=== PATIENT | female | born 1960 | race Caucasian/White ===

== ENCOUNTER → 2016-07-03 | Outpatient (CLI) | payer OTHER ==
[~2016-07-03] MED LIST: ACET325T96 PO; ASPI81TA28 PO; ATOR-26 PO; BENZ-89 PO; BISM262S7 PO; CLOZ100T18 PO; DOCU-94 PO; LAMO200T38 PO; LEVO125T72 PO; LORA-741 PO; MECL1TAB42 PO; MULTTAB58 PO; PRLSR20 PO; QUET1TAB90 PO; SRQ/200 PO; VNTHFA/IN INH
[2016-07-03 17:43] LABS: URINE APPEARANCE CLEAR (CLEAR); URINE BILIRUBIN NEG (NEG); URINE COLOR YELLOW; URINE NITRITE NEG (NEG); URINE SPECIFIC GRAVITY 1.008 (1.000-1.030); UROBILINOGEN NEG (NEG)
[2016-07-03 17:50] LABS: MANUAL MICROSCOPIC REQUIRED? NO; REVIEW REQ? NO
== END | disposition home or self-care (01) ==
LOC: C.LABBFT 14:52
PROVIDERS: ATTEND Internal Medicine
DX: R39.9 Unspecified symptoms and signs involving the genitourinary system (principal)

== ENCOUNTER → 2016-08-22 | Outpatient (CLI) | payer OTHER ==
[2016-08-22 17:50] LABS: CHOLESTEROL/HDL RATIO 3.1; THYROID STIMULATING HORMONE 0.975 uIu/ml (0.300-4.500)
[2016-08-23 06:32] LABS: ESTIMATED AVERAGE GLUCOSE 140 mg/dl; HA1C FLAG Normal (Normal)
--- NOTE | 2016-09-18 10:36 | CODING QUERY MEDICAL NECESSITY ---
CQSUPPORTING DIAGNOSIS NEEDED A supporting diagnosis is required for the test/procedure performed on this patient in order for us to be reimbursed by the patient's insurance. Please provide a supporting diagnosis for the following test/procedure listed below next to the test name along with your signature. *If there is no additional diagnosis for this patient that would support the following test/procedure please document that below next to the test/procedure. Test(s)/Procedure(s) that require a supporting diagnosis: DOS 08/22/16 GLYCATED HEMOGLOBIN ORDERED BY [facility] SALEH Provider Signature: Date: Thank you Kayla Arguello Health Information Management Once completed, please kindly fax back to [phone] For questions please call [phone]
== END | disposition home or self-care (01) ==
LOC: C.LABBFT 11:14
PROVIDERS: ATTEND Physician Assistant Medical
DX: H53.8 Other visual disturbances (principal); M54.9 Dorsalgia, unspecified; E03.9 Hypothyroidism, unspecified

== ENCOUNTER → 2016-10-04 | Outpatient (CLI) | payer OTHER ==
[~2016-10-04] MED LIST changes: -BENZ-89 PO; +CGN1 PO
[2016-10-12 13:55] LABS: O&P SOURCE OTHER-STOOL
== END | disposition home or self-care (01) ==
LOC: C.LABSPEC 12:01
PROVIDERS: ATTEND Physician Assistant Medical
DX: R19.7 Diarrhea, unspecified (principal)

== ENCOUNTER 2016-10-05 13:52 | Inpatient (IN) | payer OTHER ==
[~2016-10-05] VITALS: Ht 163.8 cm; Wt 100.8 kg
[2016-10-05] VITALS (26 sets, daily range): BP systolic 111–135; BP diastolic 71–91; PULSE 78–87; TEMP 36.6–37.3; O2SAT 97–98; Ht 163.8 cm; Wt 100.8 kg
[~2016-10-05 13:52] MED LIST changes: -BISM262S7 PO; -MECL1TAB42 PO; -MULTTAB58 PO
[2016-10-05] MEDS ORDERED: SODIUM CHLORIDE 0.9% 1000ML 1,000 ML IV SCH (13:57)
--- NOTE | 2016-10-05 14:07 | DIAGNOSTIC IMAGING REPORT ---
HEAD CT NONCONTRAST CT DOSE: 614.27 mGy.cm HISTORY: Stroke symptoms. TECHNIQUE: Multiaxial CT images of the head were performed without the use of intravenous contrast. Automated exposure control was utilized for this study. Comparison: Head CT 01/16/2016. Findings: The paranasal sinuses and mastoid air cells are clear. The calvarium and skull base are intact. The ventricles and sulci are within normal limits. There is no mass, hematoma, midline shift, or acute infarct. Old punctate lacunar infarct seen within the left basal ganglia, unchanged. Impression: No acute intracranial abnormality. Electronically signed by: Jermaine Cheek M.D. 10/05/2016 2:06 PM Dictated Date/Time: 10/05/2016 2:01 PM
[2016-10-05 14:35] LABS: BASO % 0.3 %; BASO ABS # 0.02 K/uL (0-0.2); COMPLETE YES; EOS % 0.9 %; HEMATOCRIT 34.1 % (37-47); IG% 0.8 %; LYMPH % 17.8 %; LYMPH ABS # 1.17 K/uL (1.2-3.4); MEAN CELL VOLUME 92.7 fL (80-100); MEAN CORPUSCULAR HEMOGLOBIN 29.9 pg (25-34); MEAN CORPUSCULAR HGB CONC 32.3 g/dl (32-36); MEAN PLATELET VOLUME 9.7 fL (7.4-10.4); MONO % 6.1 %; NEUT % 74.1 %; PLATELET COUNT 243 K/uL (130-400); RED BLOOD COUNT 3.68 M/uL (4.2-5.4); WHITE BLOOD COUNT 6.59 K/uL (4.8-10.8)
[2016-10-05 14:59] LABS: BLOOD UREA NITROGEN 11 mg/dl (7-18); BUN/CREATININE RATIO 8.2 (10-20); CALCIUM 8.5 mg/dl (8.5-10.1); CARBON DIOXIDE 24 mmol/L (21-32); CHLORIDE 107 mmol/L (98-107); GLUCOSE 220 mg/dl (70-99); PARTIAL THROMBOPLASTIN RATIO 0.9; POTASSIUM 4.1 mmol/L (3.5-5.1); PROTHROMBIN TIME (PATIENT) 10.8 SECONDS (9.0-12.0); SODIUM 139 mmol/L (136-145)
[2016-10-05 15:02] LABS: CKMB/CK RATIO 1.5 (0-3.0)
[2016-10-05] MEDS ORDERED: ALTEPLASE IV STA (15:02)
[2016-10-05] MEDS ORDERED: RECOMBINANT IV STA (15:02)
--- NOTE | 2016-10-05 15:16 | EMERGENCY ROOM VISIT NOTE ---
History Report prepared by Donta: Stella Higginbotham Under the Supervision of: Dr. Dimitris Reinoso M.D. First contact with patient: 13:57 Stated Complaint: STROKE ALERT History of Present Illness The patient is a 55 year old female who presents to the Emergency Room with complaints of constant stroke-like symptoms beginning 2 hours [employer]. The patient' s last known well time was approximately 12pm today. She started feeling dizzy around that time and then developed left-sided weakness. The patient tried to walk and was unable to use her left leg and left arm. She called out to a man that was walking past her, and he called 911. The patient was brought to the ED by ambulance. She takes a daily aspirin and denies any other blood thinners. She denies any headache, chest pain, shortness of breath, nausea, and vomiting. Source of History: patient, EMS Onset: 2 hours [employer] Position: other (global) Quality: other (stroke-like) Timing: constant Associated Symptoms: + weakness (left-sided), No headache, No chest pain, No SOB, No nausea, No vomiting Note: Pt had some dizziness. Review of Systems All systems have been listed, reviewed, and are negative other than those previously mentioned. Please see Additional Medical History Sheet. Past Medical & Surgical Medical Problems: (1) ANXIETY STATE NOS (2) ASTHMA, UNSPECIFIED (3) DIAB [place] WO COMPL, TYPE II OR UNSPEC TYPE, NOT UNCNTRLD (4) Fall (5) HX OF SCHIZOPHRENIA (6) MIXED HYPERLIPIDEMIA (7) schizoaffective disorder, bipolar type Family History Diabetes mellitus Hypertension Social History Smoking Status: Never Smoker Alcohol Use: none Marital Status: single Housing Status: lives alone Occupation Status: unemployed Current/Historical Medications Scheduled Aspirin (Aspirin Ec), 81 MG PO QAM Atorvastatin (Lipitor), 80 MG PO HS Benztropine Mesylate (Cogentin), 1 MG PO BID Clozapine (Clozapine), 150 MG PO QAM Clozapine (Clozapine), 350 MG PO HS Lamotrigine (Lamictal), 200 MG PO BID Levothyroxine Sodium (Synthroid), 125 MCG PO QAM Lorazepam (Ativan), 0.5 MG PO HS Omeprazole (Prilosec), 40 MG PO HS Quetiapine Fumarate (Seroquel), 200 MG PO QAM Quetiapine Fumarate (Seroquel), 300 MG PO HS Scheduled PRN Acetaminophen Tab (Tylenol), 325-650 MG PO Q4 PRN for Pain Albuterol Hfa (Ventolin Hfa), 2 PUFFS INH QID PRN for SOB/Wheezing Docusate Sodium (Colace), 1 CAP PO BID PRN for Constipation Allergies Coded Allergies: Escitalopram (Verified Allergy, Unknown, MANIC, 01/16/16) Haloperidol (Unverified Allergy, Unknown, unknown, 01/16/16) [place] (Verified Allergy, Unknown, UNKNOWN, 01/16/16) Penicillins (Verified Allergy, Unknown, GI UPSET, 01/16/16) Valproic Acid (Verified Adverse Reaction, Unknown, leg swelling, 01/16/16) Physical Exam Vital Signs Date Time Temp Pulse Resp B/P (MAP) Pulse Ox O2 Delivery O2 Flow Rate FiO2 10/05/16 15:50 37.1 10/05/16 15:45 93 19 97 10/05/16 15:40 94 23 116/93 96 10/05/16 15:35 94 17 96 10/05/16 15:30 118/81 10/05/16 15:28 94 18 97 10/05/16 15:23 94 21 97 10/05/16 15:20 122/75 10/05/16 15:18 95 17 98 10/05/16 15:13 95 20 99 10/05/16 15:10 127/85 10/05/16 15:08 97 16 99 10/05/16 15:03 98 23 98 10/05/16 15:00 115/97 10/05/16 14:58 99 16 120/80 99 10/05/16 14:53 99 24 97 10/05/16 14:50 119/84 10/05/16 14:48 98 18 99 10/05/16 14:45 135/89 10/05/16 14:43 97 21 95 10/05/16 14:40 129/86 10/05/16 14:40 98 22 129/86 96 10/05/16 14:40 97 Nasal Cannula 2.0 10/05/16 14:39 118/92 10/05/16 14:38 98 24 10/05/16 14:33 98 17 10/05/16 14:28 97 17 97 10/05/16 14:23 127/81 10/05/16 14:22 99 19 97 10/05/16 14:17 100 15 98 10/05/16 14:16 98 10/05/16 14:14 143/87 10/05/16 14:05 37.3 98 16 143/87 97 Room Air 10/05/16 14:05 97 Room Air Physical Exam GENERAL: Patient awake, alert, oriented x 3. Patient follows commands. Patient does not appear toxic. Patient is adequately hydrated and well- nourished. SKIN: No erythema, pallor, cyanosis or rash HEENT: Normal head, pupils equal, reactive to light and accommodation. Ears normal. Oral cavity and posterior pharynx appear normal. Neck: Without adenopathy, no neck vein distention. LUNGS: Clear to auscultation. No wheezes, no rales, no rhonchi. HEART: No murmurs. No gallops. No rubs ABDOMEN: Obese, soft, nontender. No masses, no rebound, no hepatomegaly or splenomegaly. EXTREMITIES: No signs of trauma. No pedal or pretibial edema. No calf or thigh tenderness. NEUROLOGIC: Cranial nerves II-XII within normal limits. Patient has weakness of the left arm and left leg. Questionable facial droop. Medical Decision & Procedures ER Provider Diagnostic Interpretation: Radiology results as stated below per my review and radiologist interpretation: HEAD CT NONCONTRAST CT DOSE: 614.27 mGy.cm HISTORY: Stroke symptoms. TECHNIQUE: Multiaxial CT images of the head were performed without the use of intravenous contrast. Automated exposure control was utilized for this study. Comparison: Head CT 01/16/2016. Findings: The paranasal sinuses and mastoid air cells are clear. The calvarium and skull base are intact. The ventricles and sulci are within normal limits. There is no mass, hematoma, midline shift, or acute infarct. Old punctate lacunar infarct seen within the left basal ganglia, unchanged. Impression: No acute intracranial abnormality. Electronically signed by: Jermaine Cheek M.D. 10/05/2016 2:06 PM Dictated Date/Time: 10/05/2016 2:01 PM Laboratory Results 10/05/16 14:14 Red Blood Count 3.68, Mean Corpuscular Volume 92.7, Mean Corpuscular Hemoglobin 29.9, Mean Corpuscular Hemoglobin Concent 32.3, Mean Platelet Volume 9.7, Neutrophils (%) (Auto) 74.1, Lymphocytes (%) (Auto) 17.8, Monocytes (%) (Auto) 6.1, Eosinophils (%) (Auto) 0.9, Basophils (%) (Auto) 0.3, Neutrophils # (Auto) 4.89, Lymphocytes # (Auto) 1.17, Monocytes # (Auto) 0.40, Eosinophils # (Auto) 0.06, Basophils # (Auto) 0.02 10/05/16 14:14 Test 10/05/16 14:08 10/05/16 14:09 10/05/16 14:14 Bedside Prothrombin Time INR 1.0 (0.9-1.1) Bedside Glucose 223 mg/dl (70-90) White Blood Count 6.59 K/uL (4.8-10.8) Red Blood Count 3.68 M/uL (4.2-5.4) Hemoglobin 11.0 g/dL (12.0-16.0) Hematocrit 34.1 % (37-47) Mean Corpuscular Volume 92.7 fL (80-100) Mean Corpuscular Hemoglobin 29.9 pg (25-34) Mean Corpuscular Hemoglobin Concent 32.3 g/dl (32-36) Platelet Count 243 K/uL (130-400) Mean Platelet Volume 9.7 fL (7.4-10.4) Neutrophils (%) (Auto) 74.1 % Lymphocytes (%) (Auto) 17.8 % Monocytes (%) (Auto) 6.1 % Eosinophils (%) (Auto) 0.9 % Basophils (%) (Auto) 0.3 % Neutrophils # (Auto) 4.89 K/uL (1.4-6.5) Lymphocytes # (Auto) 1.17 K/uL (1.2-3.4) Monocytes # (Auto) 0.40 K/uL (0.11-0.59) Eosinophils # (Auto) 0.06 K/uL (0-0.5) Basophils # (Auto) 0.02 K/uL (0-0.2) RDW Standard Deviation 47.8 fL (36.4-46.3) RDW Coefficient of Variation 14.1 % (11.5-14.5) Immature Granulocyte % (Auto) 0.8 % Immature Granulocyte # (Auto) 0.05 K/uL (0.00-0.02) Prothrombin Time 10.8 SECONDS (9.0-12.0) Prothromb Time International Ratio 1.0 (0.9-1.1) Activated Partial Thromboplast Time 23.9 SECONDS (21.0-31.0) Partial Thromboplastin Ratio 0.9 Anion Gap 8.0 mmol/L (3-11) Est Creatinine Clear Calc Drug Dose 60.3 ml/min Estimated GFR () 53.5 Estimated GFR (Non- 46.1 BUN/Creatinine Ratio 8.2 (10-20) Calcium Level 8.5 mg/dl (8.5-10.1) Total Creatine Kinase 259 U/L (26-192) Creatine Kinase MB 4.0 ng/ml (0.5-3.6) Creatine Kinase MB Ratio 1.5 (0-3.0) Troponin I < 0.015 ng/ml (0-0.045) Laboratory results as stated above per my review. Medications Administered Medications (Trade) Dose Ordered Sig/Joon Route Start Time Stop Time Status Last Admin Dose Admin Sodium Chloride 1,000 ml @ 50 mls/hr Q20H IV 10/05/16 13:57 11/04/16 13:56 10/05/16 14:18 50 MLS/HR Alteplase, Recombinant 90 mg/ Empty Bag 190 ml @ 0 mls/hr NOW STAT IV 10/05/16 15:02 10/05/16 15:05 DC 10/05/16 14:45 81 MLS/HR ECG Indication: weakness Rate (beats per minute): 98 Rhythm: normal sinus Findings: no acute ischemic change, prolonged QT, no ectopy ED Course 1355: Past medical records reviewed. The patient was evaluated in room B1. A complete history and physical examination was performed. Prior to the patient's arrival in the ED I took medical command, and a stroke alert was called in the ED. 1357: Upon her arrival, the patient was taken emergently to CT scan. 1357: NSS 1000 ml @ 50 mls/hr IV 1406: I obtained further history and performed a more detailed physical examination when the patient returned from CT. 1412: At this time I spoke with Dr. Tabares of neurology at [facility]. We discussed the patient's case and she will evaluate the patient in the ED via Tele-Stroke. 1420: Upon reexamination the patient seems slightly stronger in the left arm and left leg. 1438: I reevaluated the patient and TPA was ordered and administered. 1502: Alteplase, Recombinant 90 mg IV 1503: I discussed the results and treatment plan with the patient. I answered all pertaining questions that she had. She expressed understanding and verbalized agreement. 1535: I spoke with Elen Schneider PA-C. We discussed the patient's results and treatment plan. The patient will be evaluated by the [facility] for further management. Medical Decision Differential diagnoses includes hemorrhagic stroke, ischemic stroke, atypical migraine, TIA. The patient is here with left-sided weakness which began around noon today. Symptoms appear to be new. She also complained of some dizziness. Multiple labs, EKG and imaging were obtained. Initial stroke score was 5 but that decreased even prior to administration of TPA. The patient was still felt a good candidate for TPA. Please see the neurology consultation. The patient continued to improve. I discussed care with her. She also had some issues related to psychiatry. Patient states that she was afraid. I also discussed care with the [facility] hospitalist. They will further evaluate for her neuro and psychiatric issues. Medication Reconciliation: I attest that I have personally reviewed the patient' s current medication list. Blood pressure Screening: Patient was found to have normal blood pressure on screening and does not require follow up. Consults Time Called: 1410 Consulting Physician: Dr. Tabares Returned Call: 1412 At this time I spoke with Dr. Tabares of neurology at [facility]. We discussed the patient's case and she will evaluate the patient in the ED via Tele-Stroke. Additional Consults: Time Called: 1520 Consulted Physician: Elen Schneider Returned Call: [phone] Additional Comments: I spoke with Elen Schneider PA-C. We discussed the patient's results and treatment plan. The patient will be evaluated by the [facility] for further management. Impression Primary Impression: Ischemic stroke Critical Care I have personally spent greater than 60 minutes of critical care time in the direct management of this patient. This includes bedside care, interpretation of diagnostic studies, and testing, discussion with consultants, patient, and family members, and other required patient management activities. This 60 minutes is in excess of all separately billable procedures. Scribe Attestation The scribe's documentation has been prepared under my direction and personally reviewed by me in its entirety. I confirm that the note above accurately reflects all work, treatment, procedures, and medical decision making performed by me. Departure Information Dispostion Being Evaluated By Hospitalist Referrals Deandre Benson M.D. (PCP) Stroke History Time Last Known Well 1200 Stroke t-PA Criteria Reviewed Meets criteria for t-PA Reason t-PA Not Given Treatment provided - N/A
[2016-10-05] MEDS ORDERED: ACETAMINOPHEN 325 MG TAB PO PRN (16:00)
[2016-10-05] MEDS ORDERED: DOCUSATE SODIUM 100 MG CAP PO PRN (16:00)
[2016-10-05] MEDS ORDERED: PHARMACIST DISCHARGE MED REC CONSULT PRN (16:00)
[2016-10-05] MEDS ORDERED: MULTTAB58 PO (16:02)
[2016-10-05] MEDS ORDERED: BISM262S7 PO (16:02)
--- NOTE | 2016-10-05 16:23 | History and Physical ---
History & Physical Date & Time of Service: Oct 05, 2016 at 16:01 Chief Complaint: Stroke Alert Primary Care Physician: Deandre Benson M.D. History of Present Illness Source: patient This is a 55yo female with PMHx of DM type 2, asthma, anxiety, schizophrenia, hyperlipidemia who presents strokelike symptoms. The patient reports she walked from the [employer] in [place] to the walk for lunch at approximately 11:30 and noticed that she was leaning somewhat to the left, she did sit down and have lunch and left there at about noon. Upon walking to her car she noted to be walking even more so to the left, and at a nearby man if he also noticed, he said yes and called 911 for the patient and she was transported via EMS. The patient denies any other symptoms other than a left- sided gait. She specifically denies changes in vision, speech, or focal weakness. The last time the patient was known to be well was prior to [address] of the head was obtained and was negative for any acute ischemia. She was within the TPA window so it was administered to her at ~1500. Past Medical/Surgical History Medical Problems: (1) ANXIETY STATE NOS Status: Chronic (2) ASTHMA, UNSPECIFIED Status: Chronic (3) DIAB AURORA WO COMPL, TYPE II OR UNSPEC TYPE, NOT UNCNTRLD Status: Chronic (4) HX OF SCHIZOPHRENIA Status: Chronic (5) MIXED HYPERLIPIDEMIA Status: Chronic (6) schizoaffective disorder, bipolar type Status: Chronic Family History Diabetes mellitus Hypertension Social History Smoking Status: Never Smoker Smokeless Tobacco Use: No Alcohol Use: none Drug Use: none Marital Status: single Housing status: lives alone Occupational Status: unemployed Immunizations History of Influenza Vaccine: Yes Influenza Vaccine Date: Dec 27, 2011 History of Tetanus Vaccine?: Yes Tetanus Immunization Date: Apr 02, 2006 History of Pneumococcal: Unknown History of Hepatitis B Vaccine: Unknown Multi-Drug Resistant Organisms History of MDRO: No Allergies Coded Allergies: Escitalopram (Verified Allergy, Unknown, MANIC, 10/05/16) Haloperidol (Unverified Allergy, Unknown, unknown, 10/05/16) Penicillins (Verified Allergy, Unknown, GI UPSET, 10/05/16) Valproic Acid (Verified Adverse Reaction, Unknown, leg swelling, 10/05/16) Home Medications Scheduled Aspirin (Aspirin Ec), 81 MG PO QAM Atorvastatin (Lipitor), 80 MG PO HS Benztropine Mesylate (Cogentin), 1 MG PO BID Clozapine (Clozapine), 150 MG PO QAM Clozapine (Clozapine), 350 MG PO HS Lamotrigine (Lamictal), 200 MG PO BID Levothyroxine Sodium (Synthroid), 125 MCG PO QAM Lorazepam (Ativan), 0.5 MG PO HS Multiple Vitamin (Multivitamin), 1 TAB PO DAILY Omeprazole (Prilosec), 40 MG PO HS Quetiapine Fumarate (Seroquel), 200 MG PO QAM Quetiapine Fumarate (Seroquel), 300 MG PO HS Scheduled PRN Acetaminophen Tab (Tylenol), 325-650 MG PO Q4 PRN for Pain Albuterol Hfa (Ventolin Hfa), 2 PUFFS INH QID PRN for SOB/Wheezing Bismuth Subsalicylate (Pepto-Bismol), 15 ML PO DAILY PRN for Diarrhea Docusate Sodium (Colace), 1 CAP PO BID PRN for Constipation Review of Systems Constitutional: No fever, sweats or chills, + left sided gait Eyes: No diplopia, no worsening or blurred vision ENT: normal hearing, no trouble swallowing Respiratory: No cough, sputum, dyspnea at rest or on exertion Cardiovascular: No chest pain, tightness or palpitations Abdomen: No pain, nausea, vomiting, diarrhea or constipation Musculoskeletal: No joint pain, calf pain, swelling Neurologic: let sided gait improving, numbness/tingling Psychiatric: + Schizophrenia, hx of anxiety, denies depression, suicidal or homicidal ideations Skin: No rash or itch Physical Exam Vital Signs Date Time Temp Pulse Resp B/P (MAP) Pulse Ox O2 Delivery O2 Flow Rate FiO2 10/05/16 15:50 37.1 10/05/16 15:45 93 19 97 10/05/16 15:40 94 23 116/93 96 10/05/16 15:35 94 17 96 10/05/16 15:30 118/81 10/05/16 15:28 94 18 97 10/05/16 15:23 94 21 97 10/05/16 15:20 122/75 10/05/16 15:18 95 17 98 10/05/16 15:13 95 20 99 10/05/16 15:10 127/85 10/05/16 15:08 97 16 99 10/05/16 15:03 98 23 98 10/05/16 15:00 115/97 10/05/16 14:58 99 16 120/80 99 10/05/16 14:53 99 24 97 10/05/16 14:50 119/84 10/05/16 14:48 98 18 99 10/05/16 14:45 135/89 10/05/16 14:43 97 21 95 10/05/16 14:40 129/86 10/05/16 14:40 98 22 129/86 96 10/05/16 14:40 97 Nasal Cannula 2.0 10/05/16 14:39 118/92 10/05/16 14:38 98 24 10/05/16 14:33 98 17 10/05/16 14:28 97 17 97 10/05/16 14:23 127/81 10/05/16 14:22 99 19 97 10/05/16 14:17 100 15 98 10/05/16 14:16 98 10/05/16 14:14 143/87 10/05/16 14:05 37.3 98 16 143/87 97 Room Air 10/05/16 14:05 97 Room Air General: awake, alert, no apparent distress, sitting up in bed, obese Head: Normocephalic, atraumatic ENT: PERRL, EOMI, + R sided presbyopia, peripheral visual fang are very limited bilaterally, no pharyngeal exudate, mucous membranes moist Chest: Clear to auscultation, on room air, no adventitious breath sounds Cardiac: Slightly tachycardic, regular rhythm, no murmur, no JVD, normal peripheral pulses, good capillary refill Abdominal: NABS x 4 quadrants, soft, nontender to palpation, no rebound, guarding or tenderness Extremities: Normal inspection, no peripheral edema or erythema, calfs nontender to palpation Psych: Normal mood and affect Neuro: AAO x 3, strength intact bilaterally and related 5/5 in upper and lower extremities, patient is able to complete heel to [place] testing, can perform rapid alternating movements with hands bilaterally, cranial nerves were tested and intact, no motor deficits, speech is clear, no peripheral sensory deficits Diagnostics Laboratory Results Results Past 24 Hours Test 10/05/16 14:08 6/30/17 14:09 10/05/16 14:14 Range/Units Bedside Prothrombin Time INR 1.0 0.9-1.1 Bedside Glucose 223 70-90 mg/dl White Blood Count 6.59 4.8-10.8 K/uL Red Blood Count 3.68 4.2-5.4 M/uL Hemoglobin 11.0 12.0-16.0 g/dL Hematocrit 34.1 37-47 % Mean Corpuscular Volume 92.7 80-100 fL Mean Corpuscular Hemoglobin 29.9 25-34 pg Mean Corpuscular Hemoglobin Concent 32.3 32-36 g/dl Platelet Count 243 130-400 K/uL Mean Platelet Volume 9.7 7.4-10.4 fL Neutrophils (%) (Auto) 74.1 % Lymphocytes (%) (Auto) 17.8 % Monocytes (%) (Auto) 6.1 % Eosinophils (%) (Auto) 0.9 % Basophils (%) (Auto) 0.3 % Neutrophils # (Auto) 4.89 1.4-6.5 K/uL Lymphocytes # (Auto) 1.17 1.2-3.4 K/uL Monocytes # (Auto) 0.40 0.11-0.59 K/uL Eosinophils # (Auto) 0.06 0-0.5 K/uL Basophils # (Auto) 0.02 0-0.2 K/uL RDW Standard Deviation 47.8 36.4-46.3 fL RDW Coefficient of Variation 14.1 11.5-14.5 % Immature Granulocyte % (Auto) 0.8 % Immature Granulocyte # (Auto) 0.05 0.00-0.02 K/uL Prothrombin Time 10.8 9.0-12.0 SECONDS Prothromb Time International Ratio 1.0 0.9-1.1 Activated Partial Thromboplast Time 23.9 21.0-31.0 SECONDS Partial Thromboplastin Ratio 0.9 Sodium Level 139 136-145 mmol/L Potassium Level 4.1 3.5-5.1 mmol/L Chloride Level 107 98-107 mmol/L Carbon Dioxide Level 24 21-32 mmol/L Anion Gap 8.0 3-11 mmol/L Blood Urea Nitrogen 11 7-18 mg/dl Creatinine 1.30 0.60-1.20 mg/dl Est Creatinine Clear Calc Drug Dose 60.3 ml/min Estimated GFR () 53.5 Estimated GFR (Non- 46.1 BUN/Creatinine Ratio 8.2 10-20 Random Glucose 220 70-99 mg/dl Calcium Level 8.5 8.5-10.1 mg/dl Total Creatine Kinase 259 26-192 U/L Creatine Kinase MB 4.0 0.5-3.6 ng/ml Creatine Kinase MB Ratio 1.5 0-3.0 Troponin I < 0.015 0-0.045 ng/ml Diagnostic Radiology HEAD CT NONCONTRAST CT DOSE: 614.27 mGy.cm HISTORY: Stroke symptoms. TECHNIQUE: Multiaxial CT images of the head were performed without the use of intravenous contrast. Automated exposure control was utilized for this study. Comparison: Head CT 01/16/2016. Findings: The paranasal sinuses and mastoid air cells are clear. The calvarium and skull base are intact. The ventricles and sulci are within normal limits. There is no mass, hematoma, midline shift, or acute infarct. Old punctate lacunar infarct seen within the left basal ganglia, unchanged. Impression: No acute intracranial abnormality. Electronically signed by: Jermaine Cheek M.D. 10/05/2016 2:06 PM Dictated Date/Time: 10/05/2016 2:01 PM The status of this report is Signed. EKG Vent. rate 98 BPM VT interval 160 ms QRS duration 96 ms QT/QTc 376/480 ms P-R-T axes 33 -10 46 Normal sinus rhythm Low voltage QRS Prolonged QT Abnormal ECG When compared with ECG of 20-MAY-2015 07:24, No significant change was found Impression Assessment and Plan This is a 55yo female with PMHx of DM type 2, asthma, anxiety, schizophrenia, hyperlipidemia who presents strokelike symptoms. Thromboembolic event - Admit patient to telemetry for strokelike symptoms including a left-sided gait - CT of the head was reviewed and is negative- consider a repeat CT if patient would develop new or worsening of symptoms - Neurology teleconsulted in the ER - was administered Ateplase 90 mg at 1500. - Neuro checks every 2hr x first 12 hrs then every 4hr thereafter. - Patient at this time show significant improvement in her apparent left-sided PE and weakness, she has no focal weakness at this time. - Continue ASA 81 mg - PT/OT tomorrow - Speech therapy consulted; pt does not seem to have any difficulty with speech or swallow at bedside - Checking hemoglobin A1c and lipid panel Schizophrenia Dependent personality disorder - Continue the patient's outpatient regimen including: Clozapine 150 mg QAM and 350 mg QHS, Lamictal 200 mg BID, Ativan 0.5 mg PO HS, Seroquel 200 mg QAM and 300 mg QHS - WBC is stable on clozapine currently. - Pt is anxious, and requesting to speak with inpatient psych despite having no complaints regarding her mental health, she displays signs of dependent personality disorder with need to be around people and becoming anxious when nobody is in the room with her. She denies suicidal or homicidal ideations during our interview. I currently do not see a need for her to have a psychiatry consultation. - Patient follows with Dr. Jules as an outpt at [facility], last seen at the end of August. She has an outpatient appointment with her at the end of October. Obesity - Diet and exercise should be discussed with patient prior to discharge - BMI = 37.9 Diabetes type 2 - Rechecking a hemoglobin A1c - Insulin sliding scale with Accu-Cheks ACHS - Patient has not required subcutaneous insulin before Hyperlipidemia - Continue Lipitor 80 mg daily CKD stage II - Cr= 1.3, baseline appears to be 1.1 DVT prophylaxis: Teds, SCDs, status post TPA CODE STATUS: Full code Disposition: Patient from home, to assist with discharge planning, likely within 1-2 days PA Physician Supervision Note: I interviewed and examined the patient. Discussed with Elen Schneider PAC and agree with findings and plan as documented in the note. Any exceptions or clarifications are listed here: None 55-year-old obese diabetic female who developed strokelike symptoms and underwent acute stroke alert, qualify for thrombolytic therapy which was administered in the ER, had resolution of her left-sided weakness and neglect. This patient has baseline mental health issues and right-sided strabismus. Vital signs reviewed and stable Physical exam shows her strabismus which is long-standing no focal neurological deficits and intact mentation Heart is regular lungs are clear Acute stroke protocol patients status post lumbar therapy control secondary risk factors such as diabetes, permissive hypertension, statin therapy as well as antiplatelet therapy DVT prevention can begin on 24 hours after thrombolytic therapy Documented By: Jonah Walker Level of Care Telemetry Resuscitation Status FULL RESUSCITATION VTE Prophylaxis Risk Level: Low Given or contraindicated: Justice Pelayo, SCD's
[2016-10-05] MEDS ORDERED: POLYETHYLENE (MIRALAX) 17 GM PACK PO PRN (16:45)
[2016-10-05] MEDS ORDERED: ONDANSETRON INJ 2 MG/ML 2 ML VIAL IV PRN (16:45)
[2016-10-05] MEDS ORDERED: ALUMINUM/MAGNESIUM/SIMETH (MAALOX MAX) 30 ML UDC PO PRN (16:45)
[2016-10-05] MEDS ORDERED: MAGNESIUM HYDROXIDE SUSP 30 ML UDC PO PRN (16:45)
--- NOTE | 2016-10-05 17:15 | Pharmacy Progress Note ---
ED Pharmacist Progress Note Date of Service: Oct 05, 2016. Patient received Alteplace 9mg IVP over 1 minute and 81mg infusion over 1 hour per verbal orders given by Dr Reinoso and per advice of Telestroke provider.
[2016-10-05] MEDS: LORAZEPAM 0.5 MG TAB PO SCH (20:35)
[2016-10-05] MEDS: CLOZAPINE 100 MG TAB PO SCH (20:36)
[2016-10-05] MEDS: BENZTROPINE MESYLATE 1 MG TAB PO SCH (20:37)
[2016-10-05] MEDS: ATORVASTATIN 40 MG TAB PO SCH (20:38)
[2016-10-05] MEDS: PANTOprazole SOD 40 MG TAB PO SCH (20:38)
[2016-10-05] MEDS: QUETIAPINE FUMARATE 300 MG TAB PO SCH (20:39)
[2016-10-06] VITALS (30 sets, daily range): BP systolic 117–154; BP diastolic 71–100; PULSE 77–94; TEMP 36.5–37; O2SAT 95–100
[2016-10-06] MEDS: LEVOTHYROXINE 125 MCG TAB PO SCH (04:49)
[2016-10-06 05:59] LABS: ESTIMATED AVERAGE GLUCOSE 146 mg/dl; HA1C FLAG Normal (Normal)
[2016-10-06] MEDS: BENZTROPINE MESYLATE 1 MG TAB PO SCH ×2 (08:46→20:05)
[2016-10-06] MEDS: CLOZAPINE 100 MG TAB PO SCH ×2 (08:47→20:05)
[2016-10-06] MEDS: ASPIRIN 81 MG ECTAB PO SCH (08:47)
[2016-10-06] MEDS: QUETIAPINE FUMARATE 200 MG TAB PO SCH (08:48)
--- NOTE | 2016-10-06 10:40 | Critical Care Consultation ---
Critical Care Consultation Date of Consultation: Oct 06, 2016. Attending Physician: Christian Mckenzie D.O. Reason for Consultation: CVA History of Present Illness The patient is a 55-year-old woman with a history of schizoaffective disorder, bipolar type who presented to the emergency department yesterday secondary to dizziness and left-sided weakness. She had walked to lunch and on her way back to the car started leaning to the left. Evidently a bystander noticed an abnormality and offered to call 911. She was seen in the emergency department and given 1 L of normal saline. CT scan of the brain was without acute abnormality. A stroke alert had been called and she was evaluated by the [facility] to the stroke neurologist. She was given TPA with resolution of her symptoms. She was transferred from the emergency department to the ICU for further monitoring status post TPA infusion. She has no specific complaints this morning other than she is nervous about "having a stroke". She tells me she tried to get out of bed to use the commode last night and was very shaky. The nurse told me she would not move her legs. She is requesting to speak to the psychiatry service due to concerns about "my situation". She denies depression or difficulty with her meds recently. I reassured her she was doing very well. Past Medical/Surgical History Asthma Anxiety Diabetes mellitus type 2 Hypothyroidism Hyperlipidemia Schizoaffective disorder, bipolar type Family History Diabetes mellitus Hypertension Social History Smoking Status: Never Smoker Smokeless Tobacco Use: No Alcohol Use: none Drug Use: none Marital Status: single Housing Status: lives alone Occupation Status: unemployed Allergies Coded Allergies: Escitalopram (Verified Allergy, Unknown, MANIC, 10/05/16) Haloperidol (Unverified Allergy, Unknown, unknown, 10/05/16) Penicillins (Verified Allergy, Unknown, GI UPSET, 10/05/16) Valproic Acid (Verified Adverse Reaction, Unknown, leg swelling, 10/05/16) Home Medications Scheduled Aspirin (Aspirin Ec), 81 MG PO QAM Atorvastatin (Lipitor), 80 MG PO HS Benztropine Mesylate (Cogentin), 1 MG PO BID Clozapine (Clozapine), 150 MG PO QAM Clozapine (Clozapine), 350 MG PO HS Lamotrigine (Lamictal), 200 MG PO BID Levothyroxine Sodium (Synthroid), 125 MCG PO QAM Lorazepam (Ativan), 0.5 MG PO HS Multiple Vitamin (Multivitamin), 1 TAB PO DAILY Omeprazole (Prilosec), 40 MG PO HS Quetiapine Fumarate (Seroquel), 200 MG PO QAM Quetiapine Fumarate (Seroquel), 300 MG PO HS Scheduled PRN Acetaminophen Tab (Tylenol), 325-650 MG PO Q4 PRN for Pain Albuterol Hfa (Ventolin Hfa), 2 PUFFS INH QID PRN for SOB/Wheezing Bismuth Subsalicylate (Pepto-Bismol), 15 ML PO DAILY PRN for Diarrhea Docusate Sodium (Colace), 1 CAP PO BID PRN for Constipation Current Inpatient Medications Current Inpatient Medications Medications (Trade) Dose Ordered Sig/Joon Route Start Time Stop Time Status Last Admin Dose Admin Aspirin (Ecotrin Tab) 81 mg QAM PO 10/06/16 09:00 11/05/16 08:59 10/06/16 08:47 81 MG Atorvastatin Calcium (Lipitor Tab) 80 mg HS PO 10/05/16 21:00 11/04/16 20:59 10/05/16 20:38 80 MG Benztropine Mesylate (Cogentin Tab) 1 mg BID PO 10/05/16 21:00 11/04/16 20:59 10/06/16 08:46 1 MG Clozapine (Clozaril Tab) 150 mg QAM PO 10/06/16 09:00 11/05/16 08:59 10/06/16 08:47 150 MG Clozapine (Clozaril Tab) 350 mg HS PO 10/05/16 21:00 11/04/16 20:59 10/05/16 20:36 350 MG Docusate Sodium (coLACE CAP) 100 mg BID PRN PO 10/05/16 16:00 11/04/16 15:59 Lamotrigine (Lamictal Tab) 200 mg BID PO 10/05/16 21:00 11/04/16 20:59 10/06/16 08:48 200 MG Levothyroxine Sodium (Synthroid Tab) 125 mcg DAILYBB PO 10/06/16 06:00 11/05/16 08:59 10/06/16 04:49 125 MCG Lorazepam (Ativan Tab) 0.5 mg HS PO 10/05/16 21:00 11/04/16 20:59 10/05/16 20:35 0.5 MG Quetiapine Fumarate (seroQUEL TAB) 200 mg QAM PO 10/06/16 09:00 11/05/16 08:59 10/06/16 08:48 200 MG Quetiapine Fumarate (seroQUEL TAB) 300 mg HS PO 10/05/16 21:00 11/04/16 20:59 10/05/16 20:39 300 MG Pantoprazole Sodium (Protonix Tab) 40 mg HS PO 10/05/16 21:00 11/04/16 20:59 10/05/16 20:38 40 MG Miscellaneous Information (Pharmacist Discharge Med Rec Consult) 1 ea UD PRN N/A 10/05/16 16:00 11/04/16 15:59 Acetaminophen (Tylenol Tab) 650 mg Q4H PRN PO 10/05/16 16:45 11/04/16 16:44 Al Hydrox/Mg Hydrox/Simethicone (Maalox Max Susp) 15 ml Q4H PRN PO 10/05/16 16:45 11/04/16 16:44 Magnesium Hydroxide (Milk Of Magnesia Susp) 30 ml Q12H PRN PO 10/05/16 16:45 11/04/16 16:44 Ondansetron HCl (Zofran Inj) 4 mg Q6H PRN IV 10/05/16 16:45 11/04/16 16:44 Polyethylene (Miralax Powder Packet) 17 gm DAILY PRN PO 10/05/16 16:45 11/04/16 16:44 Review of Systems She reports some weakness on the left side. She feels like her "legs won't work ". She reports leg stiffness. She denies visual changes and headache. She denies signs of breath, chest pain, nausea, vomiting. She reports some tingling in her left hand. Her appetite is poor. Additional review of systems are negative or noncontributory and 12 point system other than what is presented in the history of present illness Physical Exam Date Time Temp Pulse Resp B/P (MAP) Pulse Ox O2 Delivery O2 Flow Rate FiO2 10/06/16 09:45 36.6 87 16 139/95 (110) 98 Room Air 10/06/16 09:00 36.7 84 15 142/96 (111) 98 Room Air 10/06/16 08:00 Room Air 10/06/16 08:00 36.6 83 15 132/93 (106) 98 10/06/16 08:00 98 Room Air 10/06/16 07:30 87 15 129/95 (106) 96 Room Air 10/06/16 07:00 37.0 82 15 148/89 (108) 97 Room Air 10/06/16 06:00 84 15 134/91 (105) 96 10/06/16 06:00 83 15 134/91 (105) 96 10/06/16 05:31 83 15 133/75 (94) 96 10/06/16 05:31 83 15 133/75 (94) 96 10/06/16 05:30 83 14 96 10/06/16 05:00 84 14 138/87 (104) 96 10/06/16 05:00 84 6 138/87 (104) 96 10/06/16 05:00 84 6 138/87 (104) 96 10/06/16 04:30 84 14 122/76 (91) 95 10/06/16 04:03 98 Room Air 10/06/16 04:00 37.0 85 15 136/84 (101) 96 10/06/16 04:00 37.0 85 15 136/84 (101) 96 10/06/16 04:00 85 15 136/84 (101) 96 10/06/16 03:30 84 14 132/85 (101) 97 10/06/16 03:30 84 14 132/85 (101) 97 10/06/16 03:00 86 10 148/90 (109) 97 10/06/16 03:00 86 10 148/90 (109) 97 10/06/16 03:00 86 10 148/90 (109) 97 10/06/16 02:30 85 16 140/98 (112) 98 10/06/16 02:00 83 20 130/85 (100) 98 10/06/16 02:00 83 20 130/85 (100) 98 10/06/16 02:00 83 20 130/85 (100) 98 10/06/16 02:00 83 20 130/85 (100) 98 10/06/16 01:30 82 16 126/78 (94) 98 10/06/16 01:00 80 16 119/81 (94) 98 10/06/16 01:00 80 16 119/81 (94) 98 10/06/16 01:00 80 16 119/81 (94) 98 10/06/16 00:30 78 11 126/78 (94) 98 10/06/16 00:13 98 Room Air 10/06/16 00:00 37.0 82 14 124/79 (94) 98 10/06/16 00:00 82 14 124/79 (94) 98 10/06/16 00:00 37.0 82 14 124/79 (94) 98 10/05/16 23:30 81 13 124/80 (95) 97 10/05/16 23:30 81 13 124/80 (95) 97 10/05/16 23:17 83 21 125/84 (98) 98 10/05/16 23:17 83 21 125/84 (98) 98 10/05/16 23:00 78 19 97 10/05/16 23:00 78 19 97 10/05/16 22:45 79 15 122/83 (96) 97 10/05/16 22:30 79 15 122/83 (96) 97 10/05/16 22:30 79 15 122/83 (96) 97 10/05/16 22:15 81 19 113/71 (85) 97 10/05/16 22:00 81 19 113/71 (85) 97 10/05/16 21:45 80 19 122/84 (97) 98 10/05/16 21:30 80 19 122/84 (97) 98 10/05/16 21:30 80 19 122/84 (97) 98 10/05/16 21:15 80 22 97 10/05/16 21:15 80 19 122/84 (97) 98 10/05/16 21:00 81 23 115/79 (91) 98 10/05/16 20:45 81 23 115/79 (91) 98 10/05/16 20:30 81 13 115/74 (88) 98 10/05/16 20:15 36.6 81 13 115/74 (88) 98 10/05/16 20:00 98 Room Air 10/05/16 20:00 36.6 82 15 114/76 (89) 98 10/05/16 19:45 82 15 114/76 (89) 98 10/05/16 19:30 83 24 122/80 (94) 98 10/05/16 19:15 83 24 122/80 (94) 98 10/05/16 19:00 85 16 130/86 (101) 98 10/05/16 18:45 37.0 85 16 135/86 (102) 98 Room Air 10/05/16 18:33 98 Room Air 10/05/16 18:30 37.0 84 16 111/82 (92) 98 Room Air 10/05/16 18:15 37.2 19 124/82 (96) 98 Room Air 10/05/16 18:10 37.2 87 17 125/84 97 Room Air 10/05/16 18:00 37.2 87 17 125/84 (98) 97 Room Air 10/05/16 17:26 37.0 90 20 125/88 98 10/05/16 17:15 120/82 10/05/16 17:10 89 21 99 10/05/16 17:00 88 23 116/78 98 10/05/16 16:50 89 20 99 10/05/16 16:45 131/91 10/05/16 16:41 89 17 99 10/05/16 16:31 89 19 98 10/05/16 16:30 132/85 10/05/16 16:21 89 21 98 10/05/16 16:16 122/82 10/05/16 16:15 91 17 98 10/05/16 16:10 92 26 123/85 98 10/05/16 16:05 92 26 98 10/05/16 16:00 91 22 120/81 96 10/05/16 15:55 92 17 98 10/05/16 15:50 93 21 125/85 97 10/05/16 15:50 37.1 10/05/16 15:45 37.3 19 131/91 (104) 97 Room Air 2.0 10/05/16 15:45 93 19 97 10/05/16 15:45 37.3 19 131/91 (104) 97 Room Air 10/05/16 15:40 94 23 116/93 96 10/05/16 15:35 94 17 96 10/05/16 15:30 118/81 10/05/16 15:28 94 18 97 10/05/16 15:23 94 21 97 10/05/16 15:20 122/75 10/05/16 15:18 95 17 98 10/05/16 15:13 95 20 99 10/05/16 15:10 127/85 10/05/16 15:08 97 16 99 10/05/16 15:03 98 23 98 10/05/16 15:00 115/97 10/05/16 14:58 99 16 120/80 99 10/05/16 14:53 99 24 97 10/05/16 14:50 119/84 10/05/16 14:48 98 18 99 10/05/16 14:45 135/89 10/05/16 14:43 97 21 95 10/05/16 14:40 129/86 10/05/16 14:40 98 22 129/86 96 10/05/16 14:40 97 Nasal Cannula 2.0 10/05/16 14:39 118/92 10/05/16 14:38 98 24 10/05/16 14:33 98 17 10/05/16 14:28 97 17 97 10/05/16 14:23 127/81 10/05/16 14:22 99 19 97 10/05/16 14:17 100 15 98 10/05/16 14:16 98 10/05/16 14:14 143/87 10/05/16 14:05 37.3 98 16 143/87 97 Room Air 10/05/16 14:05 97 Room Air General: This is an obese woman sitting in bed in no distress Neuro: She is awake and alert, oriented to person place and year. Pupils are equally round and reactive to light. Tongue is midline, no facial droop. Strength 5 over 5 in the upper and lower extremities. Heel to [place] bilaterally within normal limits. Rapid alternating movements in the upper extremities is intact. Sensation is grossly intact. Strength in the upper and lower extremities is 5 over 5. Lungs: decreased breath sounds in the bases no rales rhonchi or wheezes Heart: Regular rate and rhythm no murmurs noted Abdomen: Obese, soft, nondistended, nontender, active bowel sounds Extremities: Warm no edema. Laboratory Results Last 24 Hours Test 10/05/16 14:08 10/05/16 14:09 10/05/16 14:14 10/05/16 18:29 Bedside Prothrombin Time INR 1.0 Bedside Glucose 223 mg/dl 116 mg/dl White Blood Count 6.59 K/uL Red Blood Count 3.68 M/uL Hemoglobin 11.0 g/dL Hematocrit 34.1 % Mean Corpuscular Volume 92.7 fL Mean Corpuscular Hemoglobin 29.9 pg Mean Corpuscular Hemoglobin Concent 32.3 g/dl Platelet Count 243 K/uL Mean Platelet Volume 9.7 fL Neutrophils (%) (Auto) 74.1 % Lymphocytes (%) (Auto) 17.8 % Monocytes (%) (Auto) 6.1 % Eosinophils (%) (Auto) 0.9 % Basophils (%) (Auto) 0.3 % Neutrophils # (Auto) 4.89 K/uL Lymphocytes # (Auto) 1.17 K/uL Monocytes # (Auto) 0.40 K/uL Eosinophils # (Auto) 0.06 K/uL Basophils # (Auto) 0.02 K/uL RDW Standard Deviation 47.8 fL RDW Coefficient of Variation 14.1 % Immature Granulocyte % (Auto) 0.8 % Immature Granulocyte # (Auto) 0.05 K/uL Prothrombin Time 10.8 SECONDS Prothromb Time International Ratio 1.0 Activated Partial Thromboplast Time 23.9 SECONDS Partial Thromboplastin Ratio 0.9 Sodium Level 139 mmol/L Potassium Level 4.1 mmol/L Chloride Level 107 mmol/L Carbon Dioxide Level 24 mmol/L Anion Gap 8.0 mmol/L Blood Urea Nitrogen 11 mg/dl Creatinine 1.30 mg/dl Est Creatinine Clear Calc Drug Dose 60.3 ml/min Estimated GFR () 53.5 Estimated GFR (Non- 46.1 BUN/Creatinine Ratio 8.2 Random Glucose 220 mg/dl Estimated Average Glucose 146 mg/dl Hemoglobin A1c 6.7 % Calcium Level 8.5 mg/dl Total Creatine Kinase 259 U/L Creatine Kinase MB 4.0 ng/ml Creatine Kinase MB Ratio 1.5 Troponin I < 0.015 ng/ml Test 10/05/16 22:30 10/06/16 05:54 10/06/16 07:47 Total Creatine Kinase 249 U/L Troponin I < 0.015 ng/ml Creatine Kinase MB Ratio Bedside Glucose 154 mg/dl Diagnostic Results HEAD CT NONCONTRAST CT DOSE: 614.27 mGy.cm HISTORY: Stroke symptoms. TECHNIQUE: Multiaxial CT images of the head were performed without the use of intravenous contrast. Automated exposure control was utilized for this study. Comparison: Head CT 01/16/2016. Findings: The paranasal sinuses and mastoid air cells are clear. The calvarium and skull base are intact. The ventricles and sulci are within normal limits. There is no mass, hematoma, midline shift, or acute infarct. Old punctate lacunar infarct seen within the left basal ganglia, unchanged. Impression: No acute intracranial abnormality. Electronically signed by: Jermaine Cheek M.D. 10/05/2016 2:06 PM EKG from yesterday shows sinus rhythm mildly prolonged corrected QT interval, poor R-wave progression, nonspecific ST-T wave changes. Carotid ultrasound, echocardiogram, MRI of the brain combo is pending. Assessment & Plan 1. Probable CVA, status post TPA, doing well, no focal deficits on my exam. Stroke workup is continuing. Blood pressure has been satisfactory. 2. Type 2 diabetes mellitus with hyperglycemia 3. Possible acute kidney injury, baseline creatinine is around 1.3 4. Schizoaffective disorder, reportedly stable on her outpatient medications. 5. Anxiety 6. Hypothyroidism Plan: 1. As noted above, MRI, echocardiogram, carotid Dopplers are pending. Continue neuro checks. Continue aspirin 81 mg daily 2. Continue to monitor for any signs of bleeding. 3. Advance diet, adjust insulin. 4. Continue outpatient psychiatric medications. 5. I reassured her she is doing very well and that it would be normal to have some anxiety and concern about her present condition. She seems stable on her medications, hold on any psychiatry consultation. 6. Follow up labs from this morning which are still pending. 7. Pending any neurologic global climate change researcher the next few hours, I think she could be transferred to telemetry after her post TPA observation and evaluation is complete. 8. The patient's care was discussed with Dr. Mckenzie.
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
--- NOTE | 2016-10-06 12:39 | Progress Note ---
Subjective Date of Service: Oct 06, 2016. Subjective Pt evaluation today including: conversation w/ patient, physical exam, lab review, review of studies, conversation w/ surgery consultant, review of inpatient medication list Pain: denies pain PO Intake: adequate Voiding: no voiding problems patient sitting in chair in the ICU no events overnight this AM she reports feeling woozy, "like I'm drugged up" her balance is improved, not leaning toward the left any more discussed with Dr. Phillips, will pursue stroke work up with MRI, carotid doppler, echocardiogram plan to transfer to [facility] once 24 hours out from tPA Problem List Medical Problems: (1) Dizziness Status: Acute (2) Head injury Status: Acute (3) Ischemic stroke Status: Acute (4) Right leg numbness Status: Acute Review of Systems Constitutional: + weakness, + fatigue Neurologic: + weakness Psychiatric: + depression symptoms All Other Systems: Reviewed and Negative Medications Current Inpatient Medications Medications (Trade) Dose Ordered Sig/Joon Route Start Time Stop Time Status Last Admin Dose Admin Aspirin (Ecotrin Tab) 81 mg QAM PO 10/06/16 09:00 11/05/16 08:59 10/06/16 08:47 81 MG Atorvastatin Calcium (Lipitor Tab) 80 mg HS PO 10/05/16 21:00 11/04/16 20:59 10/05/16 20:38 80 MG Benztropine Mesylate (Cogentin Tab) 1 mg BID PO 10/05/16 21:00 11/04/16 20:59 10/06/16 08:46 1 MG Clozapine (Clozaril Tab) 150 mg QAM PO 10/06/16 09:00 11/05/16 08:59 10/06/16 08:47 150 MG Clozapine (Clozaril Tab) 350 mg HS PO 10/05/16 21:00 11/04/16 20:59 10/05/16 20:36 350 MG Docusate Sodium (coLACE CAP) 100 mg BID PRN PO 10/05/16 16:00 11/04/16 15:59 Lamotrigine (Lamictal Tab) 200 mg BID PO 10/05/16 21:00 11/04/16 20:59 10/06/16 08:48 200 MG Levothyroxine Sodium (Synthroid Tab) 125 mcg DAILYBB PO 10/06/16 06:00 11/05/16 08:59 10/06/16 04:49 125 MCG Lorazepam (Ativan Tab) 0.5 mg HS PO 10/05/16 21:00 11/04/16 20:59 10/05/16 20:35 0.5 MG Quetiapine Fumarate (seroQUEL TAB) 200 mg QAM PO 10/06/16 09:00 11/05/16 08:59 10/06/16 08:48 200 MG Quetiapine Fumarate (seroQUEL TAB) 300 mg HS PO 10/05/16 21:00 11/04/16 20:59 10/05/16 20:39 300 MG Pantoprazole Sodium (Protonix Tab) 40 mg HS PO 10/05/16 21:00 11/04/16 20:59 10/05/16 20:38 40 MG Miscellaneous Information (Pharmacist Discharge Med Rec Consult) 1 ea UD PRN N/A 10/05/16 16:00 11/04/16 15:59 Acetaminophen (Tylenol Tab) 650 mg Q4H PRN PO 10/05/16 16:45 11/04/16 16:44 Al Hydrox/Mg Hydrox/Simethicone (Maalox Max Susp) 15 ml Q4H PRN PO 10/05/16 16:45 11/04/16 16:44 Magnesium Hydroxide (Milk Of Magnesia Susp) 30 ml Q12H PRN PO 10/05/16 16:45 11/04/16 16:44 Ondansetron HCl (Zofran Inj) 4 mg Q6H PRN IV 10/05/16 16:45 11/04/16 16:44 Polyethylene (Miralax Powder Packet) 17 gm DAILY PRN PO 10/05/16 16:45 11/04/16 16:44 Objective Vital Signs Date Time Temp Pulse Resp B/P (MAP) Pulse Ox O2 Delivery O2 Flow Rate FiO2 10/06/16 12:02 98 Room Air 10/06/16 12:00 36.6 94 19 151/93 (112) 98 Room Air 0.0 10/06/16 11:50 36.6 94 19 151/93 (112) 98 Room Air 0.0 10/06/16 10:50 89 13 137/100 (112) 98 Room Air 0.0 10/06/16 10:06 36.6 89 19 144/99 (114) 98 Room Air 10/06/16 09:45 36.6 87 16 139/95 (110) 98 Room Air 10/06/16 09:00 36.7 84 15 142/96 (111) 98 Room Air 10/06/16 08:00 Room Air 10/06/16 08:00 36.6 83 15 132/93 (106) 98 10/06/16 08:00 98 Room Air 10/06/16 07:30 87 15 129/95 (106) 96 Room Air 10/06/16 07:00 37.0 82 15 148/89 (108) 97 Room Air 10/06/16 06:00 84 15 134/91 (105) 96 10/06/16 06:00 83 15 134/91 (105) 96 10/06/16 05:31 83 15 133/75 (94) 96 10/06/16 05:31 83 15 133/75 (94) 96 10/06/16 05:30 83 14 96 10/06/16 05:00 84 14 138/87 (104) 96 10/06/16 05:00 84 6 138/87 (104) 96 10/06/16 05:00 84 6 138/87 (104) 96 10/06/16 04:30 84 14 122/76 (91) 95 10/06/16 04:03 98 Room Air 10/06/16 04:00 37.0 85 15 136/84 (101) 96 10/06/16 04:00 37.0 85 15 136/84 (101) 96 10/06/16 04:00 85 15 136/84 (101) 96 10/06/16 03:30 84 14 132/85 (101) 97 10/06/16 03:30 84 14 132/85 (101) 97 10/06/16 03:00 86 10 148/90 (109) 97 10/06/16 03:00 86 10 148/90 (109) 97 10/06/16 03:00 86 10 148/90 (109) 97 10/06/16 02:30 85 16 140/98 (112) 98 10/06/16 02:00 83 20 130/85 (100) 98 10/06/16 02:00 83 20 130/85 (100) 98 10/06/16 02:00 83 20 130/85 (100) 98 10/06/16 02:00 83 20 130/85 (100) 98 10/06/16 01:30 82 16 126/78 (94) 98 10/06/16 01:00 80 16 119/81 (94) 98 10/06/16 01:00 80 16 119/81 (94) 98 10/06/16 01:00 80 16 119/81 (94) 98 10/06/16 00:30 78 11 126/78 (94) 98 10/06/16 00:13 98 Room Air 10/06/16 00:00 37.0 82 14 124/79 (94) 98 10/06/16 00:00 82 14 124/79 (94) 98 10/06/16 00:00 37.0 82 14 124/79 (94) 98 10/05/16 23:30 81 13 124/80 (95) 97 10/05/16 23:30 81 13 124/80 (95) 97 10/05/16 23:17 83 21 125/84 (98) 98 10/05/16 23:17 83 21 125/84 (98) 98 10/05/16 23:00 78 19 97 10/05/16 23:00 78 19 97 10/05/16 22:45 79 15 122/83 (96) 97 10/05/16 22:30 79 15 122/83 (96) 97 10/05/16 22:30 79 15 122/83 (96) 97 10/05/16 22:15 81 19 113/71 (85) 97 10/05/16 22:00 81 19 113/71 (85) 97 10/05/16 21:45 80 19 122/84 (97) 98 10/05/16 21:30 80 19 122/84 (97) 98 10/05/16 21:30 80 19 122/84 (97) 98 10/05/16 21:15 80 22 97 10/05/16 21:15 80 19 122/84 (97) 98 10/05/16 21:00 81 23 115/79 (91) 98 10/05/16 20:45 81 23 115/79 (91) 98 10/05/16 20:30 81 13 115/74 (88) 98 10/05/16 20:15 36.6 81 13 115/74 (88) 98 10/05/16 20:00 98 Room Air 10/05/16 20:00 36.6 82 15 114/76 (89) 98 10/05/16 19:45 82 15 114/76 (89) 98 10/05/16 19:30 83 24 122/80 (94) 98 10/05/16 19:15 83 24 122/80 (94) 98 10/05/16 19:00 85 16 130/86 (101) 98 10/05/16 18:45 37.0 85 16 135/86 (102) 98 Room Air 10/05/16 18:33 98 Room Air 10/05/16 18:30 37.0 84 16 111/82 (92) 98 Room Air 10/05/16 18:15 37.2 19 124/82 (96) 98 Room Air 10/05/16 18:10 37.2 87 17 125/84 97 Room Air 10/05/16 18:00 37.2 87 17 125/84 (98) 97 Room Air 10/05/16 17:26 37.0 90 20 125/88 98 10/05/16 17:15 120/82 10/05/16 17:10 89 21 99 10/05/16 17:00 88 23 116/78 98 10/05/16 16:50 89 20 99 10/05/16 16:45 131/91 10/05/16 16:41 89 17 99 10/05/16 16:31 89 19 98 10/05/16 16:30 132/85 10/05/16 16:21 89 21 98 10/05/16 16:16 122/82 10/05/16 16:15 91 17 98 10/05/16 16:10 92 26 123/85 98 10/05/16 16:05 92 26 98 10/05/16 16:00 91 22 120/81 96 10/05/16 15:55 92 17 98 10/05/16 15:50 93 21 125/85 97 10/05/16 15:50 37.1 10/05/16 15:45 37.3 19 131/91 (104) 97 Room Air 2.0 10/05/16 15:45 93 19 97 10/05/16 15:45 37.3 19 131/91 (104) 97 Room Air 10/05/16 15:40 94 23 116/93 96 10/05/16 15:35 94 17 96 10/05/16 15:30 118/81 10/05/16 15:28 94 18 97 10/05/16 15:23 94 21 97 10/05/16 15:20 122/75 10/05/16 15:18 95 17 98 10/05/16 15:13 95 20 99 10/05/16 15:10 127/85 10/05/16 15:08 97 16 99 10/05/16 15:03 98 23 98 10/05/16 15:00 115/97 10/05/16 14:58 99 16 120/80 99 10/05/16 14:53 99 24 97 10/05/16 14:50 119/84 10/05/16 14:48 98 18 99 10/05/16 14:45 135/89 10/05/16 14:43 97 21 95 10/05/16 14:40 129/86 10/05/16 14:40 98 22 129/86 96 10/05/16 14:40 97 Nasal Cannula 2.0 10/05/16 14:39 118/92 10/05/16 14:38 98 24 10/05/16 14:33 98 17 10/05/16 14:28 97 17 97 10/05/16 14:23 127/81 10/05/16 14:22 99 19 97 10/05/16 14:17 100 15 98 10/05/16 14:16 98 10/05/16 14:14 143/87 10/05/16 14:05 37.3 98 16 143/87 97 Room Air 10/05/16 14:05 97 Room Air Physical Exam General Appearance: no apparent distress, + obese Eyes: normal inspection, EOMI, sclerae normal ENT: normal ENT inspection, hearing grossly normal, pharynx normal Neck: supple, no adenopathy, no JVD, trachea midline Respiratory/Chest: chest non-tender, lungs clear, normal breath sounds, no respiratory distress, no accessory muscle use Cardiovascular: regular rate, rhythm, no edema, no gallop, no JVD, no murmur Abdomen: normal bowel sounds, non tender, soft, no organomegaly Extremities: normal range of motion, non-tender, normal inspection, no pedal edema, no calf tenderness Neurologic/Psychiatric: network design architect II-XII nml as tested, no motor/sensory deficits, alert, oriented x 3, + depressed affect Skin: normal color, warm/dry, no rash Laboratory Results Last 24 Hours Test 10/05/16 14:08 10/05/16 14:09 10/05/16 14:14 10/05/16 18:29 Bedside Prothrombin Time INR 1.0 Bedside Glucose 223 mg/dl 116 mg/dl White Blood Count 6.59 K/uL Red Blood Count 3.68 M/uL Hemoglobin 11.0 g/dL Hematocrit 34.1 % Mean Corpuscular Volume 92.7 fL Mean Corpuscular Hemoglobin 29.9 pg Mean Corpuscular Hemoglobin Concent 32.3 g/dl Platelet Count 243 K/uL Mean Platelet Volume 9.7 fL Neutrophils (%) (Auto) 74.1 % Lymphocytes (%) (Auto) 17.8 % Monocytes (%) (Auto) 6.1 % Eosinophils (%) (Auto) 0.9 % Basophils (%) (Auto) 0.3 % Neutrophils # (Auto) 4.89 K/uL Lymphocytes # (Auto) 1.17 K/uL Monocytes # (Auto) 0.40 K/uL Eosinophils # (Auto) 0.06 K/uL Basophils # (Auto) 0.02 K/uL RDW Standard Deviation 47.8 fL RDW Coefficient of Variation 14.1 % Immature Granulocyte % (Auto) 0.8 % Immature Granulocyte # (Auto) 0.05 K/uL Prothrombin Time 10.8 SECONDS Prothromb Time International Ratio 1.0 Activated Partial Thromboplast Time 23.9 SECONDS Partial Thromboplastin Ratio 0.9 Sodium Level 139 mmol/L Potassium Level 4.1 mmol/L Chloride Level 107 mmol/L Carbon Dioxide Level 24 mmol/L Anion Gap 8.0 mmol/L Blood Urea Nitrogen 11 mg/dl Creatinine 1.30 mg/dl Est Creatinine Clear Calc Drug Dose 60.3 ml/min Estimated GFR () 53.5 Estimated GFR (Non- 46.1 BUN/Creatinine Ratio 8.2 Random Glucose 220 mg/dl Estimated Average Glucose 146 mg/dl Hemoglobin A1c 6.7 % Calcium Level 8.5 mg/dl Total Creatine Kinase 259 U/L Creatine Kinase MB 4.0 ng/ml Creatine Kinase MB Ratio 1.5 Troponin I < 0.015 ng/ml Test 10/05/16 22:30 10/06/16 05:54 10/06/16 07:47 10/06/16 11:57 Total Creatine Kinase 249 U/L Troponin I < 0.015 ng/ml Creatine Kinase MB Ratio Bedside Glucose 154 mg/dl 144 mg/dl Assessment and Plan This is a 55yo female with PMHx of DM type 2, asthma, anxiety, schizophrenia, hyperlipidemia who presented with acute onset of loss of balance, leaning toward the left. CT head negative for bleeding and neurology gave tPA, admitted to ICU Suspected ischemic stroke, presenting with gait disturbance, acute onset gait better today, no other stroke like symptoms will complete work up with MRI brain, carotid dopplers, echocardiogram, continue tele check lipid panel, HbA1c is 6.7, at goal continue aspirin, Lipitor 80mg daily neurology consultation, discussed case with Dr. Phillips transfer out of ICU per protocol post tPA Schizophrenia Dependent personality disorder - Continue the patient's outpatient regimen including: Clozapine 150 mg QAM and 350 mg QHS, Lamictal 200 mg BID, Ativan 0.5 mg PO HS, Seroquel 200 mg QAM and 300 mg QHS - checking Lamictal level per neuro Obesity - Diet and exercise should be discussed with patient prior to discharge - BMI = 37.9 Diabetes type 2 - Rechecking a hemoglobin A1c - 6.7 - Insulin sliding scale with Accu-Cheks ACHS Hyperlipidemia - Continue Lipitor 80 mg daily CKD stage II - Cr= 1.3, stable DVT prophylaxis: Teds, SCDs, status post TPA CODE STATUS: Full code Disposition: Patient from home, to assist with discharge planning, PT/OT ordered and initiate stroke work up
--- NOTE | 2016-10-06 14:51 | DIAGNOSTIC IMAGING REPORT ---
MRI OF THE BRAIN WITHOUT AND WITH IV CONTRAST CLINICAL HISTORY: Stroke. Left-sided weakness and slurred speech. Thromboembolic event. COMPARISON STUDY: MRI the brain May 18, [address] October 05, 2016. TECHNIQUE: Utilizing a 1.5 Eladia magnet and dedicated coil, multiplanar, multiecho imaging of the brain was performed pre and postcontrast administration. IV administration of 10 mL of Gadavist contrast was uneventful. FINDINGS: There are no areas of restricted diffusion. No acute intracranial hemorrhage, midline shift or mass effect is present. Ventricular system is normal. Basilar cisterns are patent. There are no extra-axial collections. Flow-voids for the major intracranial vessels are present. There is no intracranial mass or pathologic enhancement. Numerous white matter T2 hyperintense foci are similar to exam of May 18, 2015. Calvarial signal is normal. Orbits and sinuses are on remarkable. Flow-voids for the major intracranial vessels are present. IMPRESSION: No acute intracranial findings. No change since MRI of May 18, 2015. Electronically signed by: Tony Hilliard M.D. 10/06/2016 2:50 PM Dictated Date/Time: 10/06/2016 2:47 PM
--- NOTE | 2016-10-06 14:53 | DIAGNOSTIC IMAGING REPORT ---
CAROTID ARTERY ULTRASOUND CLINICAL HISTORY: Stroke. Left-sided weakness. COMPARISON STUDY: Carotid ultrasound May 17, 2015. TECHNIQUE: Real-time, grayscale, and color Doppler sonography of the carotid and vertebral arteries was performed. Images were viewed in the transverse and longitudinal planes. FINDINGS: There is minimal atherosclerotic plaque. Velocity measurements are listed below. COMMON CAROTID PEAK SYSTOLIC VELOCITY (CM/S): RIGHT 64 LEFT 80 ICA PEAK SYSTOLIC VELOCITY (CM/S): RIGHT 73 LEFT 79 The systolic ratios between the internal to common carotid arteries were normal. Antegrade flow is seen in the vertebral arteries. The external carotid arteries are patent. Blood pressures were not obtained in this patient. IMPRESSION: No evidence of a hemodynamically significant stenosis. Electronically signed by: Tony Hilliard M.D. 10/06/2016 2:52 PM Dictated Date/Time: 10/06/2016 2:51 PM
[2016-10-06 16:22] LABS: BASO % 0.3 %; BASO ABS # 0.02 K/uL (0-0.2); COMPLETE YES; HEMATOCRIT 37.7 % (37-47); IG% 0.3 %; LYMPH % 19.8 %; LYMPH ABS # 1.36 K/uL (1.2-3.4); MEAN CELL VOLUME 92.2 fL (80-100); MEAN CORPUSCULAR HEMOGLOBIN 28.6 pg (25-34); MONO % 6.1 %; NEUT % 72.5 %; PLATELET COUNT 266 K/uL (130-400); RED BLOOD COUNT 4.09 M/uL (4.2-5.4); WHITE BLOOD COUNT 6.87 K/uL (4.8-10.8)
[2016-10-06 17:01] LABS: BLOOD UREA NITROGEN 10 mg/dl (7-18); BUN/CREATININE RATIO 11.4 (10-20); CALCIUM 9.2 mg/dl (8.5-10.1); CARBON DIOXIDE 26 mmol/L (21-32); CHLORIDE 109 mmol/L (98-107); CHOLESTEROL 158 mg/dl (0-200); CHOLESTEROL/HDL RATIO 3.3; CREATININE 0.91 mg/dl (0.60-1.20); GLUCOSE 112 mg/dl (70-99); HDL CHOLESTEROL 48 mg/dl; LDL CHOLESTEROL CALCULATED 52 mg/dl; POTASSIUM 4.4 mmol/L (3.5-5.1); SODIUM 141 mmol/L (136-145); TRIGLYCERIDES 290 mg/dl (0-150); VERY LOW DENSITY LIPOPROT CALC 58 mg/dl
[2016-10-06] MEDS: ACETAMINOPHEN 325 MG TAB PO PRN (20:04)
[2016-10-06] MEDS: ATORVASTATIN 40 MG TAB PO SCH (20:04)
[2016-10-06] MEDS: LORAZEPAM 0.5 MG TAB PO SCH (20:04)
[2016-10-06] MEDS: QUETIAPINE FUMARATE 300 MG TAB PO SCH (20:06)
[2016-10-06] MEDS: PANTOprazole SOD 40 MG TAB PO SCH (20:06)
[2016-10-07] VITALS (8 sets, daily range): BP systolic 103–129; BP diastolic 68–87; PULSE 74–86; TEMP 36.4–36.7; O2SAT 95–96
[2016-10-07] MEDS: LEVOTHYROXINE 125 MCG TAB PO SCH (05:02)
[2016-10-07 08:17] LABS: BASO % 0.5 %; BASO ABS # 0.03 K/uL (0-0.2); COMPLETE YES; EOS % 1.5 %; IG% 0.3 %; LYMPH % 18.6 %; LYMPH ABS # 1.12 K/uL (1.2-3.4); MEAN CELL VOLUME 91.6 fL (80-100); MEAN CORPUSCULAR HEMOGLOBIN 28.5 pg (25-34); MEAN CORPUSCULAR HGB CONC 31.1 g/dl (32-36); MEAN PLATELET VOLUME 8.9 fL (7.4-10.4); MONO % 6.3 %; NEUT % 72.8 %; PLATELET COUNT 245 K/uL (130-400); RED BLOOD COUNT 3.93 M/uL (4.2-5.4); WHITE BLOOD COUNT 6.01 K/uL (4.8-10.8)
[2016-10-07 08:44] LABS: BUN/CREATININE RATIO 12.7 (10-20); CALCIUM 8.8 mg/dl (8.5-10.1); POTASSIUM 4.3 mmol/L (3.5-5.1)
[2016-10-07] MEDS: ASPIRIN 81 MG ECTAB PO SCH (10:08)
[2016-10-07] MEDS: BENZTROPINE MESYLATE 1 MG TAB PO SCH ×2 (10:09→20:41)
[2016-10-07] MEDS: CLOZAPINE 100 MG TAB PO SCH ×2 (10:09→20:40)
[2016-10-07] MEDS: QUETIAPINE FUMARATE 200 MG TAB PO SCH ×2 (10:09→20:37)
--- NOTE | 2016-10-07 11:42 | Neurology Progress Notes ---
Neurology Progress Note Date of Service Oct 07, 2016. Subjective Patient reports that she feels mostly back to herself. Maybe feels like her left hand is still a little off. MRI of the brain report and images were reviewed by myself and there is no acute changes or strokes. Ultrasound of carotids were unremarkable. Echocardiogram is pending Total cholesterol 158, LDL 52, HDL 48, triglycerides 290 Objective Date Time Temp Pulse Resp B/P (MAP) Pulse Ox O2 Delivery O2 Flow Rate FiO2 10/07/16 11:30 36.7 83 18 120/81 (94) 96 10/07/16 09:55 Room Air 10/07/16 07:20 36.4 78 16 129/87 (101) 96 Room Air 10/07/16 04:00 Room Air 10/07/16 03:53 36.7 77 18 103/68 (80) 96 Room Air 10/07/16 00:00 Room Air 10/06/16 23:46 36.8 77 18 117/71 (86) 96 Room Air 10/06/16 20:26 Room Air 10/06/16 18:40 36.6 86 20 132/85 (101) 100 Room Air 10/06/16 16:00 Room Air 10/06/16 15:30 36.5 80 20 120/85 (97) 98 Room Air 10/06/16 12:50 36.5 94 16 136/85 (102) 97 Room Air 0.0 10/06/16 12:02 98 Room Air 10/06/16 12:00 36.6 94 19 151/93 (112) 98 Room Air 0.0 10/06/16 11:50 36.6 94 19 151/93 (112) 98 Room Air 0.0 Last 24 Hours Test 10/06/16 11:57 10/06/16 16:15 10/07/16 08:03 Bedside Glucose 144 mg/dl White Blood Count 6.87 K/uL 6.01 K/uL Red Blood Count 4.09 M/uL 3.93 M/uL Hemoglobin 11.7 g/dL 11.2 g/dL Hematocrit 37.7 % 36.0 % Mean Corpuscular Volume 92.2 fL 91.6 fL Mean Corpuscular Hemoglobin 28.6 pg 28.5 pg Mean Corpuscular Hemoglobin Concent 31.0 g/dl 31.1 g/dl Platelet Count 266 K/uL 245 K/uL Mean Platelet Volume 9.0 fL 8.9 fL Neutrophils (%) (Auto) 72.5 % 72.8 % Lymphocytes (%) (Auto) 19.8 % 18.6 % Monocytes (%) (Auto) 6.1 % 6.3 % Eosinophils (%) (Auto) 1.0 % 1.5 % Basophils (%) (Auto) 0.3 % 0.5 % Neutrophils # (Auto) 4.98 K/uL 4.37 K/uL Lymphocytes # (Auto) 1.36 K/uL 1.12 K/uL Monocytes # (Auto) 0.42 K/uL 0.38 K/uL Eosinophils # (Auto) 0.07 K/uL 0.09 K/uL Basophils # (Auto) 0.02 K/uL 0.03 K/uL RDW Standard Deviation 48.0 fL 48.0 fL RDW Coefficient of Variation 14.2 % 14.1 % Immature Granulocyte % (Auto) 0.3 % 0.3 % Immature Granulocyte # (Auto) 0.02 K/uL 0.02 K/uL Sodium Level 141 mmol/L 140 mmol/L Potassium Level 4.4 mmol/L 4.3 mmol/L Chloride Level 109 mmol/L 106 mmol/L Carbon Dioxide Level 26 mmol/L 29 mmol/L Anion Gap 6.0 mmol/L 5.0 mmol/L Blood Urea Nitrogen 10 mg/dl 13 mg/dl Creatinine 0.91 mg/dl 1.00 mg/dl Est Creatinine Clear Calc Drug Dose 81.0 ml/min 74.1 ml/min Estimated GFR () 82.3 73.5 Estimated GFR (Non- 71.0 63.4 BUN/Creatinine Ratio 11.4 12.7 Random Glucose 112 mg/dl 129 mg/dl Calcium Level 9.2 mg/dl 8.8 mg/dl Total Creatine Kinase 214 U/L Creatine Kinase MB 2.2 ng/ml Creatine Kinase MB Ratio 1.0 Troponin I < 0.015 ng/ml Triglycerides Level 290 mg/dl Cholesterol Level 158 mg/dl HDL Cholesterol 48 mg/dl LDL Cholesterol, Calculated 52 mg/dl VLDL Cholesterol, Calculated 58 mg/dl Cholesterol/HDL Ratio 3.3 Exam: Gen.: Patient is alert and oriented in no acute distress Extremities: No gross deformities or rashes noted Neurological examination: Mental status: Patient is alert and oriented to person place and time. Able to give his own history. Attention concentration normal for the situation. Speech is fluent without any dysarthria or aphasia noted Cranial nerves: No facial asymmetry noted. Facial sensation intact bilaterally Strength: 5/5 both proximal and distal in all extremities .Tone is normal. No arm drift Sensation: Patient reported decreased sensation to light touch in the right upper extremity today (was left yesterday). Otherwise sensation was grossly intact. Coordination: Patient has good finger to nose without dysmetria. Station within the bed was normal. Current Inpatient Medications Medications (Trade) Dose Ordered Sig/Joon Route Start Time Stop Time Status Last Admin Dose Admin Aspirin (Ecotrin Tab) 81 mg QAM PO 10/06/16 09:00 11/05/16 08:59 10/07/16 10:08 81 MG Atorvastatin Calcium (Lipitor Tab) 80 mg HS PO 10/05/16 21:00 11/04/16 20:59 10/06/16 20:04 80 MG Benztropine Mesylate (Cogentin Tab) 1 mg BID PO 10/05/16 21:00 11/04/16 20:59 10/07/16 10:09 1 MG Clozapine (Clozaril Tab) 150 mg QAM PO 10/06/16 09:00 11/05/16 08:59 10/07/16 10:09 150 MG Clozapine (Clozaril Tab) 350 mg HS PO 10/05/16 21:00 11/04/16 20:59 10/06/16 20:05 350 MG Docusate Sodium (coLACE CAP) 100 mg BID PRN PO 10/05/16 16:00 11/04/16 15:59 Lamotrigine (Lamictal Tab) 200 mg BID PO 10/05/16 21:00 11/04/16 20:59 10/07/16 10:09 200 MG Levothyroxine Sodium (Synthroid Tab) 125 mcg DAILYBB PO 10/06/16 06:00 11/05/16 08:59 10/06/16 04:49 125 MCG Lorazepam (Ativan Tab) 0.5 mg HS PO 10/05/16 21:00 11/04/16 20:59 10/06/16 20:04 0.5 MG Quetiapine Fumarate (seroQUEL TAB) 200 mg QAM PO 10/06/16 09:00 11/05/16 08:59 10/07/16 10:09 200 MG Quetiapine Fumarate (seroQUEL TAB) 300 mg HS PO 10/05/16 21:00 11/04/16 20:59 10/06/16 20:06 300 MG Pantoprazole Sodium (Protonix Tab) 40 mg HS PO 10/05/16 21:00 11/04/16 20:59 10/06/16 20:06 40 MG Miscellaneous Information (Pharmacist Discharge Med Rec Consult) 1 ea UD PRN N/A 10/05/16 16:00 11/04/16 15:59 Acetaminophen (Tylenol Tab) 650 mg Q4H PRN PO 10/05/16 16:45 11/04/16 16:44 10/06/16 20:04 650 MG Al Hydrox/Mg Hydrox/Simethicone (Maalox Max Susp) 15 ml Q4H PRN PO 10/05/16 16:45 11/04/16 16:44 Magnesium Hydroxide (Milk Of Magnesia Susp) 30 ml Q12H PRN PO 10/05/16 16:45 11/04/16 16:44 Ondansetron HCl (Zofran Inj) 4 mg Q6H PRN IV 10/05/16 16:45 11/04/16 16:44 Polyethylene (Miralax Powder Packet) 17 gm DAILY PRN PO 10/05/16 16:45 11/04/16 16:44 Impression This is a 55-year-old right-handed female who presents with strokelike symptoms of left hemisensory loss and possible subjective left leg weakness (also with some complaints for dizziness). Because the patient did present within the three -hour time window, she did receive IV tPA in the ER. Overall history is difficult to obtain from the patient and sensory exam is inconsistent, so not sure whether the patient has had a true vascular event versus a stroke mimic. Patient does have stroke risk factors including diabetes and dyslipidemia. Plan Follow-up echocardiogram for stroke risk factor modifications Agree with PT/OT and speech evaluations. Lamictal level is pending to r/o toxicity Continue home ASA since I am not convinced she had a true vascular event Stroke risk factor modifications and recommendations: Blood pressure recommendations for the first month post hospital discharge 150/ 90-130/80, and after that blood pressure recommendations 130/80-110/70 Total cholesterol goal 100- 200 and LDL goal less than 100 Hemoglobin A1c goal less than 7 Encourage cardiovascular exercise at least 3 times a week for 30 minutes. No additional neurological recommendations at this time. Thank you for allowing me to participate in this patient's care. If there is any questions or concerns , feel free to call/page me.
--- NOTE | 2016-10-07 12:04 | Progress Note ---
Subjective Date of Service: Oct 07, 2016. Subjective Pt evaluation today including: conversation w/ patient, physical exam, lab review, conversation w/ national sales consultant, review of inpatient medication list Pain: denies pain PO Intake: adequate Voiding: no voiding problems patient very sleepy today, slept until 10am says she feels weak on the right side, yesterday she felt weak on the left side still with balance issues appreciate therapy notes (OT) recommending rehab, not safe to go home discussed with Dr. Phillips, doubts stroke as MRI was negative, possibly related to Lamictal level, still pending agrees with rehab discussed with patient, she would like to go to rehab Problem List Medical Problems: (1) Dizziness Status: Acute (2) Head injury Status: Acute (3) Ischemic stroke Status: Acute (4) Right leg numbness Status: Acute Review of Systems Constitutional: + weakness, + fatigue All Other Systems: Reviewed and Negative Medications Current Inpatient Medications Medications (Trade) Dose Ordered Sig/Joon Route Start Time Stop Time Status Last Admin Dose Admin Aspirin (Ecotrin Tab) 81 mg QAM PO 10/06/16 09:00 11/05/16 08:59 10/07/16 10:08 81 MG Atorvastatin Calcium (Lipitor Tab) 80 mg HS PO 10/05/16 21:00 11/04/16 20:59 10/06/16 20:04 80 MG Benztropine Mesylate (Cogentin Tab) 1 mg BID PO 10/05/16 21:00 11/04/16 20:59 10/07/16 10:09 1 MG Clozapine (Clozaril Tab) 150 mg QAM PO 10/06/16 09:00 11/05/16 08:59 10/07/16 10:09 150 MG Clozapine (Clozaril Tab) 350 mg HS PO 10/05/16 21:00 11/04/16 20:59 10/06/16 20:05 350 MG Docusate Sodium (coLACE CAP) 100 mg BID PRN PO 10/05/16 16:00 11/04/16 15:59 Lamotrigine (Lamictal Tab) 200 mg BID PO 10/05/16 21:00 11/04/16 20:59 10/07/16 10:09 200 MG Levothyroxine Sodium (Synthroid Tab) 125 mcg DAILYBB PO 10/06/16 06:00 7/31/17 08:59 10/06/16 04:49 125 MCG Lorazepam (Ativan Tab) 0.5 mg HS PO 10/05/16 21:00 11/04/16 20:59 10/06/16 20:04 0.5 MG Quetiapine Fumarate (seroQUEL TAB) 200 mg QAM PO 10/06/16 09:00 11/05/16 08:59 10/07/16 10:09 200 MG Quetiapine Fumarate (seroQUEL TAB) 300 mg HS PO 10/05/16 21:00 11/04/16 20:59 10/06/16 20:06 300 MG Pantoprazole Sodium (Protonix Tab) 40 mg HS PO 10/05/16 21:00 11/04/16 20:59 10/06/16 20:06 40 MG Miscellaneous Information (Pharmacist Discharge Med Rec Consult) 1 ea UD PRN N/A 10/05/16 16:00 11/04/16 15:59 Acetaminophen (Tylenol Tab) 650 mg Q4H PRN PO 10/05/16 16:45 11/04/16 16:44 10/06/16 20:04 650 MG Al Hydrox/Mg Hydrox/Simethicone (Maalox Max Susp) 15 ml Q4H PRN PO 10/05/16 16:45 11/04/16 16:44 Magnesium Hydroxide (Milk Of Magnesia Susp) 30 ml Q12H PRN PO 10/05/16 16:45 11/04/16 16:44 Ondansetron HCl (Zofran Inj) 4 mg Q6H PRN IV 10/05/16 16:45 11/04/16 16:44 Polyethylene (Miralax Powder Packet) 17 gm DAILY PRN PO 10/05/16 16:45 11/04/16 16:44 Objective Vital Signs Date Time Temp Pulse Resp B/P (MAP) Pulse Ox O2 Delivery O2 Flow Rate FiO2 10/07/16 11:30 36.7 83 18 120/81 (94) 96 10/07/16 09:55 Room Air 10/07/16 07:20 36.4 78 16 129/87 (101) 96 Room Air 10/07/16 04:00 Room Air 10/07/16 03:53 36.7 77 18 103/68 (80) 96 Room Air 10/07/16 00:00 Room Air 10/06/16 23:46 36.8 77 18 117/71 (86) 96 Room Air 10/06/16 20:26 Room Air 10/06/16 18:40 36.6 86 20 132/85 (101) 100 Room Air 10/06/16 16:00 Room Air 10/06/16 15:30 36.5 80 20 120/85 (97) 98 Room Air 10/06/16 12:50 36.5 94 16 136/85 (102) 97 Room Air 0.0 10/06/16 12:02 98 Room Air 10/06/16 12:00 36.6 94 19 151/93 (112) 98 Room Air 0.0 10/06/16 11:50 36.6 94 19 151/93 (112) 98 Room Air 0.0 Physical Exam General Appearance: WD/WN, no apparent distress ENT: normal ENT inspection, hearing grossly normal, pharynx normal Neck: supple, no adenopathy, no JVD, trachea midline Respiratory/Chest: chest non-tender, lungs clear, normal breath sounds, no respiratory distress, no accessory muscle use Cardiovascular: regular rate, rhythm, no edema, no gallop, no JVD, no murmur Abdomen: normal bowel sounds, non tender, soft, no organomegaly Extremities: normal range of motion, non-tender, normal inspection, no pedal edema, no calf tenderness Neurologic/Psychiatric: java j2ee technical lead II-XII nml as tested, alert, oriented x 3, + abnormal gait, + motor weakness, + depressed affect Skin: normal color, warm/dry, no rash Laboratory Results Last 24 Hours Test 10/06/16 11:57 10/06/16 16:15 10/07/16 08:03 10/07/16 10:59 Bedside Glucose 144 mg/dl 149 mg/dl White Blood Count 6.87 K/uL 6.01 K/uL Red Blood Count 4.09 M/uL 3.93 M/uL Hemoglobin 11.7 g/dL 11.2 g/dL Hematocrit 37.7 % 36.0 % Mean Corpuscular Volume 92.2 fL 91.6 fL Mean Corpuscular Hemoglobin 28.6 pg 28.5 pg Mean Corpuscular Hemoglobin Concent 31.0 g/dl 31.1 g/dl Platelet Count 266 K/uL 245 K/uL Mean Platelet Volume 9.0 fL 8.9 fL Neutrophils (%) (Auto) 72.5 % 72.8 % Lymphocytes (%) (Auto) 19.8 % 18.6 % Monocytes (%) (Auto) 6.1 % 6.3 % Eosinophils (%) (Auto) 1.0 % 1.5 % Basophils (%) (Auto) 0.3 % 0.5 % Neutrophils # (Auto) 4.98 K/uL 4.37 K/uL Lymphocytes # (Auto) 1.36 K/uL 1.12 K/uL Monocytes # (Auto) 0.42 K/uL 0.38 K/uL Eosinophils # (Auto) 0.07 K/uL 0.09 K/uL Basophils # (Auto) 0.02 K/uL 0.03 K/uL RDW Standard Deviation 48.0 fL 48.0 fL RDW Coefficient of Variation 14.2 % 14.1 % Immature Granulocyte % (Auto) 0.3 % 0.3 % Immature Granulocyte # (Auto) 0.02 K/uL 0.02 K/uL Sodium Level 141 mmol/L 140 mmol/L Potassium Level 4.4 mmol/L 4.3 mmol/L Chloride Level 109 mmol/L 106 mmol/L Carbon Dioxide Level 26 mmol/L 29 mmol/L Anion Gap 6.0 mmol/L 5.0 mmol/L Blood Urea Nitrogen 10 mg/dl 13 mg/dl Creatinine 0.91 mg/dl 1.00 mg/dl Est Creatinine Clear Calc Drug Dose 81.0 ml/min 74.1 ml/min Estimated GFR () 82.3 73.5 Estimated GFR (Non- 71.0 63.4 BUN/Creatinine Ratio 11.4 12.7 Random Glucose 112 mg/dl 129 mg/dl Calcium Level 9.2 mg/dl 8.8 mg/dl Total Creatine Kinase 214 U/L Creatine Kinase MB 2.2 ng/ml Creatine Kinase MB Ratio 1.0 Troponin I < 0.015 ng/ml Triglycerides Level 290 mg/dl Cholesterol Level 158 mg/dl HDL Cholesterol 48 mg/dl LDL Cholesterol, Calculated 52 mg/dl VLDL Cholesterol, Calculated 58 mg/dl Cholesterol/HDL Ratio 3.3 Assessment and Plan This is a 55yo female with PMHx of DM type 2, asthma, anxiety, schizophrenia, hyperlipidemia who presented with acute onset of loss of balance, leaning toward the left. CT head negative for bleeding and neurology gave tPA, admitted to ICU Suspected ischemic stroke, presenting with gait disturbance, acute onset gait better today, no other stroke like symptoms MRI negative for ischemia, carotid doppler negative for stenosis, echo pending check lipid panel - LDL at goal at 52 HbA1c is 6.7, at goal continue aspirin, Lipitor 80mg daily neurology consultation, discussed case with Dr. Phillips doubt ischemic event as her MRI negative, symptoms could be attributed to polypharmacy? mood disorder? somatic disorder? Schizophrenia Dependent personality disorder - Continue the patient's outpatient regimen including: Clozapine 150 mg QAM and 350 mg QHS, Lamictal 200 mg BID, Ativan 0.5 mg PO HS, Seroquel 200 mg QAM and 300 mg QHS - checking Lamictal level per neuro, still pending Obesity - Diet and exercise should be discussed with patient prior to discharge - BMI = 37.9 Diabetes type 2 - Rechecking a hemoglobin A1c - 6.7 - Insulin sliding scale with Accu-Cheks ACHS Hyperlipidemia - Continue Lipitor 80 mg daily CKD stage II - Cr at baseline at 1.0 today DVT prophylaxis: Teds, SCDs, heparin SC CODE STATUS: Full code Disposition: Patient from home, CM to assist with discharge planning, PT/OT ordered - recommend rehab, patient wishes to pursue [facility] and CM is aware transfer to medical today since there is no evidence of stroke
[2016-10-07] MEDS: LORAZEPAM 0.5 MG TAB PO SCH (20:36)
[2016-10-07] MEDS: ATORVASTATIN 40 MG TAB PO SCH (20:37)
[2016-10-07] MEDS: PANTOprazole SOD 40 MG TAB PO SCH (20:40)
[2016-10-07] MEDS: QUETIAPINE FUMARATE 300 MG TAB PO SCH (20:42)
[2016-10-07] MEDS: HEPARIN SOD 5000 UNIT/0.5 ML CARP SQ SCH (22:04)
[2016-10-08] MEDS: HEPARIN SOD 5000 UNIT/0.5 ML CARP SQ SCH ×3 (06:10→20:57)
[2016-10-08] MEDS: LEVOTHYROXINE 125 MCG TAB PO SCH (06:10)
[2016-10-08 07:08] VITALS: BP 113/76; PULSE 70; TEMP 36.8; O2SAT 96
[2016-10-08 07:35] LABS: BUN/CREATININE RATIO 12.8 (10-20); CALCIUM 9.1 mg/dl (8.5-10.1); POTASSIUM 4.1 mmol/L (3.5-5.1)
[2016-10-08] MEDS ORDERED: LORA-741 PO (07:39)
[2016-10-08 08:00] VITALS: O2SAT 96
[2016-10-08 08:23] LABS: BASO % 0.4 %; BASO ABS # 0.02 K/uL (0-0.2); COMPLETE YES; EOS % 1.7 %; HEMATOCRIT 35.4 % (37-47); IG% 0.4 %; LYMPH % 25.5 %; LYMPH ABS # 1.32 K/uL (1.2-3.4); MEAN CELL VOLUME 92.2 fL (80-100); MEAN CORPUSCULAR HEMOGLOBIN 29.7 pg (25-34); MEAN CORPUSCULAR HGB CONC 32.2 g/dl (32-36); MEAN PLATELET VOLUME 9.4 fL (7.4-10.4); MONO % 6.9 %; NEUT % 65.1 %; PLATELET COUNT 248 K/uL (130-400); RED BLOOD COUNT 3.84 M/uL (4.2-5.4); WHITE BLOOD COUNT 5.18 K/uL (4.8-10.8)
--- NOTE | 2016-10-08 09:01 | Progress Note ---
Subjective Date of Service: Oct 08, 2016. Subjective Pt evaluation today including: conversation w/ patient, physical exam, chart review, lab review, review of studies, conversation w/ vmware consultant, review of inpatient medication list Sitting up in chair, eating breakfast, pleasant, smiling, conversational, follow -up commands, no acute distress Report has been sleep well and well recovered Reported left side weakness, and balance problem which has been improved, she did report to me left-sided weakness has been come and goes even prior to the admission Problem List Medical Problems: (1) Dizziness Status: Acute (2) Head injury Status: Acute (3) Ischemic stroke Status: Acute (4) Right leg numbness Status: Acute Review of Systems Constitutional: No fever, No chills, No sweats, No weight loss, No weakness, No fatigue, No problem reported Eyes: No worsening of vision, No eye pain, No redness, No discharge, No diplopia ENT: No hearing loss, No unusual epistaxis, No nasal symptoms, No sore throat, No tinnitus, No dental problems, No trouble swallowing Respiratory: No cough, No sputum, No wheezing, No shortness of breath, No dyspnea on exertion, No dyspnea at rest, No hemoptysis Cardiac: No chest pain, No orthopnea, No PND, No edema, No claudication, No palpitations Abdomen: No pain, No nausea, No vomiting, No diarrhea, No constipation Musculoskeletal: No joint pain, No muscle pain, No swelling, No calf pain Female : No dysuria, No urinary frequency, No hematuria, No incontinence, No abnormal vaginal bleeding, No vaginal discharge Neurologic: + weakness (left-sided weakness), No memory loss, No paralysis, No numbness/tingling, No vertigo, No balance problems Psychiatric: No depression symptoms, No anhedonism, No anxiety, No insomnia, No substance abuse Heme: No abnormal bleeding/bruising, No clotting problems, No swollen lymph nodes, No night sweats Endo: No fatigue, No excessive thirst, No excessive urination Skin: No rash, No itch, No new/changing skin lesions, No color change, No bleeding Objective Vital Signs Date Time Temp Pulse Resp B/P (MAP) Pulse Ox O2 Delivery O2 Flow Rate FiO2 10/08/16 07:08 36.8 70 18 113/76 (88) 96 10/08/16 00:00 Room Air 10/07/16 22:59 36.6 74 18 110/75 (87) 95 Room Air 10/07/16 20:00 95 Room Air 0.0 10/07/16 16:22 95 Room Air 10/07/16 15:09 36.6 78 16 127/87 (100) 95 10/07/16 12:20 36.7 86 17 128/83 (98) 96 Room Air 10/07/16 11:30 36.7 83 18 120/81 (94) 96 10/07/16 09:55 Room Air Physical Exam General Appearance: WD/WN, no apparent distress, + obese Eyes: normal inspection, PERRL, EOMI, sclerae normal ENT: normal ENT inspection, hearing grossly normal, pharynx normal Neck: supple, no adenopathy, thyroid normal, no JVD, no carotid bruits, trachea midline Respiratory/Chest: chest non-tender, lungs clear, normal breath sounds, no respiratory distress, no accessory muscle use Cardiovascular: regular rate, rhythm, no edema, no gallop, no JVD, no murmur Abdomen: normal bowel sounds, non tender, soft, no organomegaly, no pulsatile mass Extremities: normal range of motion, non-tender, normal inspection, no pedal edema, no calf tenderness, normal capillary refill, pelvis stable Neurologic/Psychiatric: black belt II-XII nml as tested, no motor/sensory deficits, alert, normal mood/affect, oriented x 3 Skin: normal color, warm/dry, no rash Lymphatic: no adenopathy Laboratory Results Last 24 Hours Test 10/07/16 10:59 10/07/16 16:36 10/07/16 19:50 10/08/16 06:44 Bedside Glucose 149 mg/dl 118 mg/dl 107 mg/dl White Blood Count 5.18 K/uL Red Blood Count 3.84 M/uL Hemoglobin 11.4 g/dL Hematocrit 35.4 % Mean Corpuscular Volume 92.2 fL Mean Corpuscular Hemoglobin 29.7 pg Mean Corpuscular Hemoglobin Concent 32.2 g/dl Platelet Count 248 K/uL Mean Platelet Volume 9.4 fL Neutrophils (%) (Auto) 65.1 % Lymphocytes (%) (Auto) 25.5 % Monocytes (%) (Auto) 6.9 % Eosinophils (%) (Auto) 1.7 % Basophils (%) (Auto) 0.4 % Neutrophils # (Auto) 3.37 K/uL Lymphocytes # (Auto) 1.32 K/uL Monocytes # (Auto) 0.36 K/uL Eosinophils # (Auto) 0.09 K/uL Basophils # (Auto) 0.02 K/uL RDW Standard Deviation 47.2 fL RDW Coefficient of Variation 14.1 % Immature Granulocyte % (Auto) 0.4 % Immature Granulocyte # (Auto) 0.02 K/uL Sodium Level 140 mmol/L Potassium Level 4.1 mmol/L Chloride Level 105 mmol/L Carbon Dioxide Level 28 mmol/L Anion Gap 7.0 mmol/L Blood Urea Nitrogen 13 mg/dl Creatinine 1.00 mg/dl Est Creatinine Clear Calc Drug Dose 74.1 ml/min Estimated GFR () 73.5 Estimated GFR (Non- 63.4 BUN/Creatinine Ratio 12.8 Random Glucose 112 mg/dl Calcium Level 9.1 mg/dl Test 10/08/16 07:12 Bedside Glucose 120 mg/dl Assessment and Plan This is a 55yo female admitted on 10/05/2016 , She has PMHx of DM type 2, asthma, anxiety, schizophrenia, hyperlipidemia who presented with acute onset of loss of balance, leaning toward the left. CT head negative for bleeding and neurology gave tPA, was admitted to ICU Suspected ischemic stroke, presenting with gait disturbance, acute onset gait continue better today, no other stroke like symptoms MRI negative for ischemia, carotid doppler negative for stenosis, echo pending, check lipid panel - LDL at goal at 52 HbA1c is 6.7, at goal continue aspirin, Lipitor 80mg daily neurology consultation, discussed case with Dr. Phillips doubt ischemic event as her MRI negative, symptoms could be attributed to polypharmacy, mood disorder, somatic disorder, however cannot 100% rule out doubt ischemic event Schizophrenia, has been follow-up [facility], she reported has appointment on 10/29/[address] Sifuentes, I encouraged her to keep the appointment Dependent personality disorder - Continue the patient's outpatient regimen including: Clozapine 150 mg QAM and 350 mg QHS, Lamictal 200 mg BID, Ativan 0.5 mg PO HS, Seroquel 200 mg QAM and 300 mg QHS - checking Lamictal level per neuro, still pending Obesity - Diet and exercise should be discussed with patient prior to discharge - BMI = 37.9 Diabetes type 2 - Rechecking a hemoglobin A1c - 6.7 - Insulin sliding scale with Accu-Cheks ACHS Hyperlipidemia - Continue Lipitor 80 mg daily CKD stage II - Cr at baseline at 1.0 today DVT prophylaxis: Teds, SCDs, heparin SC CODE STATUS: Full code Disposition: Patient from home, CM to assist with discharge planning, PT/OT ordered - recommend rehab, patient wishes to pursue [facility] and CM is aware Today echo is pending , Patient medically ready to be discharged to rehabilitation after echo is done Continued [facility] stay due to: home environment unsafe for pt Discharge planning: rehab hospital
[2016-10-08] MEDS: ASPIRIN 81 MG ECTAB PO SCH (09:24)
[2016-10-08] MEDS: QUETIAPINE FUMARATE 200 MG TAB PO SCH (09:24)
[2016-10-08] MEDS: CLOZAPINE 100 MG TAB PO SCH ×2 (09:25→20:55)
[2016-10-08] MEDS: BENZTROPINE MESYLATE 1 MG TAB PO SCH ×2 (09:27→20:55)
[2016-10-08 15:29] VITALS: BP 135/91; PULSE 84; TEMP 36.6; O2SAT 99
[2016-10-08 16:00] VITALS: O2SAT 97
[2016-10-08 20:00] VITALS: O2SAT 97
[2016-10-08] MEDS: LORAZEPAM 0.5 MG TAB PO SCH (20:53)
[2016-10-08] MEDS: PANTOprazole SOD 40 MG TAB PO SCH (20:54)
[2016-10-08] MEDS: ATORVASTATIN 40 MG TAB PO SCH (20:54)
[2016-10-08] MEDS: QUETIAPINE FUMARATE 300 MG TAB PO SCH (20:56)
--- NOTE | 2016-10-08 21:58 | ECHOCARDIOGRAM REPORT ---
*NOTICE TO RECEIVING [employer] This information is strictly Confidential and protected under [place] law. [place] law prohibits you from making any further disclosure of this information unless further disclosure is expressly permitted by the written consent of the person to whom it pertains or is authorized by law. A general authorization for the release of medical or other information is not sufficient for this purpose. Hospital accepts no responsibility if the information is made available to any other person, INCLUDING THE PATIENT. Interpretation Summary * Name: PAMELA HERRERA Study Date: 10/08/2016 02:35 PM BP: 113/76 mmHg * Patient Location: .[id number]\1 HR: 70 * : 1960 (M/d/yyyy) Gender: Female Height: 64 in * Age: 55 yrs Ethnicity: [place] Weight: 222 lb * Ordering Physician: Paolo Marino * Referring Physician: Self, Referred * Performed By: Jennifer Youssef RDCS * * Reason For Study: POSSIBLE CVA * BSA: 2.0 m2 * Normal biventricular systolic function. * Mild concentric left ventricular hypertrophy. * Class 1 LV diastolic dysfunction. * Normal chamber dimensions. * No significant valve abnormalities. * No cardiac source of emboli noted. Procedure Details * A saline contrast injection was performed to assess for cardiac shunting. * The injection was performed through an intravenous line in the right arm. * The attending nurse who injected the saline contrast was SKY JOHNSON RN. * A total of 20 cc of agitated saline was given. Left Ventricle * The left ventricle is normal in size. * There is no thrombus. * There is mild concentric left ventricular hypertrophy. * Ejection Fraction = 65-70%. * Left ventricular systolic function is normal. * A full diastolic examination was done with clinical findings of Class I diastolic dysfunction. * The left ventricular wall motion is normal. Right Ventricle * The right ventricle is normal in size and function. Atria * The left atrial size is normal. * Right atrial size is normal. * Injection of contrast documented no interatrial shunt. Mitral Valve * The mitral valve is normal. * There is no mitral valve stenosis. * There is no mitral regurgitation noted. Tricuspid Valve * The tricuspid valve is not well visualized, but is grossly normal. * There is no tricuspid stenosis. * Significant tricuspid regurgitation is absent. Aortic Valve * The aortic valve is trileaflet. * The aortic valve opens well. * Aortic stenosis is absent. * No aortic regurgitation is present. Pulmonic Valve * The pulmonic valve is not well visualized. * The pulmonary valve is inadequately visualized, but the Doppler data is adequate for interpretation. * There is no pulmonic valvular stenosis. * Trace pulmonic valvular regurgitation. Great Vessels * The aortic root is normal size. Pericardium/Pleural * There is no pericardial effusion. Great Vessels * Normal inferior vena cava diameter and respiratory variation suggests normal central venous pressure. MMode 2D Measurements and Calculations IVSd 1.3 cm IVSs 1.6 cm LVIDd 5.0 cm LVIDs 3.1 cm LVPWd 1.2 cm LVPWs 1.5 cm IVS/LVPW 1.2 FS 38.6 % EDV(Teich) 116.9 ml ESV(Teich) 36.6 ml EF(Teich) 68.7 % EDV(cubed) 123.2 ml ESV(cubed) 28.5 ml EF(cubed) 76.8 % % IVS thick 17.2 % % LVPW thick 30.3 % LV mass(C)d 242.0 grams LV mass(C)dI 118.3 grams/m\S\2 LV mass(C)s 166.2 grams LV mass(C)sI 81.3 grams/m\S\2 SV(Teich) 80.3 ml SI(Teich) 39.3 ml/m\S\2 SV(cubed) 94.6 ml SI(cubed) 46.3 ml/m\S\2 Ao root diam 2.9 cm Ao root area 6.7 cm\S\2 LA dimension 3.3 cm LA/Ao 1.1 LVAd ap4 23.7 cm\S\2 LVLd ap4 7.2 cm EDV(MOD-sp4) 67.4 ml EDV(sp4-el) 66.3 ml LVAs ap4 12.5 cm\S\2 LVLs ap4 5.8 cm ESV(MOD-sp4) 24.3 ml ESV(sp4-el) 22.7 ml EF(MOD-sp4) 64.0 % EF(sp4-el) 65.7 % LVAd ap2 23.8 cm\S\2 LVLd ap2 7.5 cm EDV(MOD-sp2) 63.8 ml EDV(sp2-el) 64.7 ml LVAs ap2 12.5 cm\S\2 LVLs ap2 5.9 cm ESV(MOD-sp2) 25.0 ml ESV(sp2-el) 22.6 ml EF(MOD-sp2) 60.9 % EF(sp2-el) 65.1 % LVLd %diff 3.6 % EDV(MOD-bp) 66.3 ml LVLs %diff 0.62 % ESV(MOD-bp) 24.7 ml EF(MOD-bp) 62.7 % SV(MOD-sp4) 43.1 ml SI(MOD-sp4) 21.1 ml/m\S\2 SV(MOD-sp2) 38.9 ml SI(MOD-sp2) 19.0 ml/m\S\2 SV(MOD-bp) 41.6 ml SI(MOD-bp) 20.3 ml/m\S\2 SV(sp4-el) 43.5 ml SI(sp4-el) 21.3 ml/m\S\2 SV(sp2-el) 42.1 ml SI(sp2-el) 20.6 ml/m\S\2 Doppler Measurements and Calculations MV E max andie 48.4 cm/sec MV A max andie 84.4 cm/sec MV E/A 0.57 MV dec time 0.23 sec Ao V2 max 112.9 cm/sec Ao max PG 5.1 mmHg Ao max PG (full) 1.9 mmHg LV V1 max PG 3.2 mmHg LV V1 max 88.8 cm/sec
[2016-10-08 23:04] VITALS: BP 121/81; PULSE 79; TEMP 36.6; O2SAT 98
[2016-10-08] MEDS: ACETAMINOPHEN 325 MG TAB PO PRN (23:10)
[2016-10-09] VITALS: O2SAT 97
[2016-10-09] MEDS: LEVOTHYROXINE 125 MCG TAB PO SCH (06:21)
[2016-10-09] MEDS: HEPARIN SOD 5000 UNIT/0.5 ML CARP SQ SCH (06:21)
[2016-10-09 07:13] VITALS: BP 120/81; PULSE 72; TEMP 36.8; O2SAT 94
[2016-10-09] MEDS: BENZTROPINE MESYLATE 1 MG TAB PO SCH (08:09)
[2016-10-09] MEDS: ASPIRIN 81 MG ECTAB PO SCH (08:09)
[2016-10-09] MEDS: CLOZAPINE 100 MG TAB PO SCH (08:09)
[2016-10-09] MEDS: QUETIAPINE FUMARATE 200 MG TAB PO SCH (08:10)
--- NOTE | 2016-10-09 08:15 | Discharge Instructions ---
Discharge Instructions Date of Service Oct 09, 2016. Admission Reason for Admission: Thromboembolic Event Discharge Discharge Diagnosis / Problem: ischemic stroke can not be 100% rule out Discharge Goals Goal(s): Decrease discomfort, Improve function, Increase independence, Improve disease control, Improve nutritional status, Learn about illness, Diagnostic testing, Therapeutic intervention, Prevent Disease Progression, Specific goals Activity Recommendations Activity Level: Up Ad Susan Therapies: Physical Therapy, Occupational Therapy . Additional Information Patient informed of condition: Yes Advance Directives: No DNR: No Level of Care: Acute Rehab Communicable Disease: No Prognosis: Stable Valladares Catheter: No Instructions / Follow-Up Instructions / Follow-Up you have gait disturbance, acute onset cannot 100% rule out stroke you havbe Schizophrenia, please keep appoint with [facility], she reported has appointment on 10/29/[address] Sifuentes - you need to follow up with your primary care physician in 1 week, - take medication as instructed, never overdose or any misuse, or take with alcohol, because misuse of medicine may cause organ damage or , call your primary care physician if have questions of medicaitons. - call your primary care physician OR go to local emergency room if has any fever/chill, chest pain, shortness of breathing, nausea/vomiting/abdominal pain , facial droop/slurry speech/local weakness, or if has any questions. - fall precaution - diet as instructed - you need to follow up with your subspecialist - you should understand that it is important to follow up the above instruction , and "not following the above instruction" may cause delayed or missed care of your medical conditions which may cause permanent organ damage and even . Current Hospital Diet Patient's current hospital diet: Diabetes Type 2 Diet Discharge Diet Recommended Diet: Diabetes Type 2 Diet Procedures Procedures Performed: echo, mri Pending Studies Studies pending at discharge: no Physician Orders On Transfer POLST Discussion: Not Applicable Laboratory Results Hemoglobin A1c Test 10/05/16 14:14 Range/Units Estimated Average Glucose 146 mg/dl Hemoglobin A1c 6.7 H 4.5-5.6 % Lipid Panel Test 10/06/16 16:15 Range/Units Triglycerides Level 290 H 0-150 mg/dl Cholesterol Level 158 0-200 mg/dl HDL Cholesterol 48 mg/dl Cholesterol/HDL Ratio 3.3 LDL Cholesterol, Calculated 52 mg/dl Medical Emergencies . Who to Call and When: Medical Emergencies: If at any time you feel your situation is an emergency, please call 911 immediately. . Non-Emergent Contact Non-Emergency issues call your: Primary Care Provider, Neurologist, Specialist (psychiatry) . . "Provider Documentation" section prepared by Paolo Marino. . Core Measure Problem Core Measures: Stroke Stroke Core Measures Reason no t-PA for Stroke: Treatment not indicated Reason no antithrom by day 2: Treatment provided - N/A Reason no antithrom at D/C: Treatment provided - N/A Reason no statin at D/C: Treatment provided - N/A Reason no anticoag w/a fib: Treatment provided - N/A
--- NOTE | 2016-10-09 09:20 | Discharge Instructions ---
Discharge Instructions Date of Service Oct 09, 2016. Admission Reason for Admission: Thromboembolic Event Discharge Discharge Diagnosis / Problem: gait disturbance, acute onset cannot 100% rule out stroke Discharge Goals Goal(s): Decrease discomfort, Improve function, Increase independence, Improve disease control, Improve nutritional status, Learn about illness, Diagnostic testing, Therapeutic intervention, Prevent Disease Progression, Specific goals Activity Recommendations Activity Limitations: resume your previous activity (c) . Instructions / Follow-Up Instructions / Follow-Up you have gait disturbance, acute onset cannot 100% rule out stroke you need have physical therapy per home health care you have Schizophrenia, please keep appoint with [facility], she reported has appointment on 10/29/[address] Sifuentes - you need to follow up with your primary care physician in 1 week, - take medication as instructed, never overdose or any misuse, or take with alcohol, because misuse of medicine may cause organ damage or , call your primary care physician if have questions of medicaitons. - call your primary care physician OR go to local emergency room if has any fever/chill, chest pain, shortness of breathing, nausea/vomiting/abdominal pain , facial droop/slurry speech/local weakness, or if has any questions. - fall precaution - diet as instructed - you need to follow up with your subspecialist - you should understand that it is important to follow up the above instruction , and "not following the above instruction" may cause delayed or missed care of your medical conditions which may cause permanent organ damage and even . Current Hospital Diet Patient's current hospital diet: Diabetes Type 2 Diet Discharge Diet Recommended Diet: Diabetes Type 2 Diet Procedures Procedures Performed: echo, mri Pending Studies Studies pending at discharge: no Laboratory Results Hemoglobin A1c Test 10/05/16 14:14 Range/Units Estimated Average Glucose 146 mg/dl Hemoglobin A1c 6.7 H 4.5-5.6 % Lipid Panel Test 10/06/16 16:15 Range/Units Triglycerides Level 290 H 0-150 mg/dl Cholesterol Level 158 0-200 mg/dl HDL Cholesterol 48 mg/dl Cholesterol/HDL Ratio 3.3 LDL Cholesterol, Calculated 52 mg/dl Medical Emergencies . Who to Call and When: Medical Emergencies: If at any time you feel your situation is an emergency, please call 911 immediately. . Non-Emergent Contact Non-Emergency issues call your: Primary Care Provider, Specialist (psychiatry) . . "Provider Documentation" section prepared by Paolo Marino. . VTE Core Measure Inpt VTE Proph given/why not?: Unfractionated heparin CRISTI, TДмитрийEStephenie. Gita, SCD 's
--- NOTE | 2016-10-09 09:31 | Discharge Summary ---
Discharge Summary Date of Service Oct 09, 2016. Discharge Summary Admission Date: Oct 05, 2016 at 16:53 Discharge Date: Oct 09, 2016 Discharge Disposition: Home with services Principal Diagnosis: gait disturbance, acute onset cannot 100% rule out stroke Problems/Secondary Diagnoses: Schizophrenia, Immunizations: Have You Had Influenza Vaccine: Yes Influenza Vaccine Date: Dec 27, 2011 History of Tetanus Vaccine?: Yes Tetanus Immunization Date: Apr 02, 2006 History of Pneumococcal: Unknown History of Hepatitis B Vaccine: Unknown Procedures: Echocardiogram Consultations: No Medication Reconciliation Continued Medications: Acetaminophen Tab (Tylenol) 325 Mg Tab 325-650 MG PO Q4 PRN for Pain Albuterol Hfa (Ventolin Hfa) 200 Puffs/57700 Mcg Aers 2 PUFFS INH QID PRN for SOB/Wheezing RARELY USES Aspirin (Aspirin Ec) 81 Mg Tab 81 MG PO QAM Atorvastatin (Lipitor) 80 Mg Tab 80 MG PO HS Benztropine Mesylate (Cogentin) 1 Mg Tab 1 MG PO BID, TAB Bismuth Subsalicylate (Pepto-Bismol) 262 Mg/15 Ml Mary 15 ML PO DAILY PRN for Diarrhea Clozapine (Clozapine) 100 Mg Tab 150 MG PO QAM Clozapine (Clozapine) 100 Mg Tab 350 MG PO HS Docusate Sodium (Colace) 100 Mg Cap 1 CAP PO BID PRN for Constipation Lamotrigine (Lamictal) 200 Mg Tab 200 MG PO BID, TAB Levothyroxine Sodium (Synthroid) 125 Mcg Tab 125 MCG PO QAM Lorazepam (Ativan) 0.5 Mg Tab 0.5 MG PO HS for 4 Days (This prescription has been renewed) Multiple Vitamin (Multivitamin) 1 Tab Tab 1 TAB PO DAILY, TAB Omeprazole (Prilosec) 20 Mg Capcr 40 MG PO HS, CAP Quetiapine Fumarate (Seroquel) 200 Mg Tab 200 MG PO QAM, TAB Quetiapine Fumarate (Seroquel) 300 Mg Tab 300 MG PO HS Discharge Exam Sitting up in chair, smiling, conversational, doing okay, no complaining Review of Systems: Constitutional: No fever, No chills, No sweats, No weight loss, No weakness , No fatigue, No problem reported Eyes: No worsening of vision, No eye pain, No redness, No discharge, No diplopia, No problem reported ENT: No hearing loss, No unusual epistaxis, No nasal symptoms, No sore throat, No tinnitus, No dental problems, No trouble swallowing, No problem reported Respiratory: No cough, No sputum, No wheezing, No shortness of breath, No dyspnea on exertion, No dyspnea at rest, No hemoptysis, No problem reported Cardiovascular: No chest pain, No orthopnea, No PND, No edema, No claudication, No palpitations, No problem reported Abdomen: No pain, No nausea, No vomiting, No diarrhea, No constipation, No GI bleeding, No problem reported Musculoskeletal: No joint pain, No muscle pain, No swelling, No calf pain, No problem reported Genitourinary - Female: No dysuria, No urinary frequency, No urinary urgency , No urinary incontinence, No urinary retention, No hematuria, No dysmenorrhea, No menorrhagia, No metrorrhagia, No rash, No vaginal bleeding, No vaginal discharge, No vaginal itching, No vulvodynia, No , No problem reported Neurologic: No memory loss, No paralysis, No weakness, No numbness/tingling , No vertigo, No balance problems, No problem reported Physical Exam: General Appearance: WD/WN, + obese Eyes: normal inspection, PERRL ENT: normal ENT inspection, hearing grossly normal Neck: supple, no adenopathy Respiratory/Chest: chest non-tender, + decreased breath sounds Cardiovascular: regular rate, rhythm, no edema Abdomen / GI: normal bowel sounds, non tender, soft, no organomegaly Extremities: normal inspection, no calf tenderness 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 CT head negative for bleeding and neurology gave tPA, was admitted to ICU Suspected ischemic stroke, presenting with gait disturbance, acute onset gait continue better , no other stroke like symptoms MRI negative for ischemia, carotid doppler negative for stenosis, echo was done, report see below check lipid panel - LDL at goal at 52 HbA1c is 6.7, at goal continue aspirin, Lipitor 80mg daily neurology consultation, Dr. Mckenzie discussed case with Dr. Phillips doubt ischemic event as her MRI negative, symptoms could be attributed to polypharmacy, mood disorder, somatic disorder, however cannot 100% rule out doubt ischemic event Echo results per report: Normal biventricular systolic function. * Mild concentric left ventricular hypertrophy. * Class 1 LV diastolic dysfunction. * Normal chamber dimensions. * No significant valve abnormalities. * No cardiac source of emboli noted. Schizophrenia, has been follow-up [facility], she reported has appointment on 10/29/[address] Sifuentes, I encouraged her to keep the appointment Dependent personality disorder - Continue the patient's outpatient regimen including: Clozapine 150 mg QAM and 350 mg QHS, Lamictal 200 mg BID, Ativan 0.5 mg PO HS, Seroquel 200 mg QAM and 300 mg QHS - checking Lamictal level per neuro, still pending Class 1 LV diastolic dysfunction: No signs of decompensation Obesity - Diet and exercise should be discussed with patient prior to discharge - BMI = 37.9 Diabetes type 2 - Rechecking a hemoglobin A1c - 6.7, well controlled continue current care - Insulin sliding scale with Accu-Cheks ACHS Hyperlipidemia - Continue Lipitor 80 mg daily CKD stage II - Cr at baseline at 1.0 today DVT prophylaxis: Teds, SCDs, heparin SC CODE STATUS: Full code Disposition: Patient from home, CM to assist with discharge planning, PT/OT ordered - recommend rehab, patient wishes to pursue [facility] and CM is aware However per caseworker intake today, patient discharged to rehabilitation was denied , and they also denied the longterm facility placement, discussed with this situation with patient, she feel frustrated, she is okay to going home with home healthcare, I advise fall precautions, encourage her to have friends helping her, also encourage her to call family doctor if feeling need, I discussed with her friend agreed to help and support as much as possible I specifically advised patient to be careful of fall and have fall precaution Instructions / Follow-Up you have gait disturbance, acute onset cannot 100% rule out stroke you need have physical therapy per home health care you have Schizophrenia, please keep appoint with [facility], she reported has appointment on 10/29/[address] Sifuentes - you need to follow up with your primary care physician in 1 week, - take medication as instructed, never overdose or any misuse, or take with alcohol, because misuse of medicine may cause organ damage or , call your primary care physician if have questions of medicaitons. - call your primary care physician OR go to local emergency room if has any fever/chill, chest pain, shortness of breathing, nausea/vomiting/abdominal pain , facial droop/slurry speech/local weakness, or if has any questions. - fall precaution - diet as instructed - you need to follow up with your subspecialist - you should understand that it is important to follow up the above instruction , and "not following the above instruction" may cause delayed or missed care of your medical conditions which may cause permanent organ damage and even . Total Time Spent: Greater than 30 minutes This includes examination of the patient, discharge planning, medication reconciliation, and communication with other providers. Discharge Instructions Please refer to the electronic Patient Visit Report (Discharge Instructions) for additional information. Additional Copies To Joanna Stephens D.O.; Roya Gibsno M.D.
[2016-10-09 09:33] VITALS: O2SAT 97
[2016-10-09 09:59] VITALS: BP 120/81; PULSE 72; TEMP 36.8; O2SAT 97
== END 2016-10-09 12:43 | disposition home health service (06) | DRG 62 ==
LOC: C.EDB 13:52 → C.MSICU 16:53 → ENRESERV 17:00 → CANBEDREQ 10-06 12:39 → ENRESERV 10-06 14:10 → C.2T 10-06 15:35 → ENRESERV 10-07 11:13 → C.MS2W 10-07 12:10
PROVIDERS: ADMIT Internal Medicine; ATTEND Hospitalist
DX: I63.9 Cerebral infarction, unspecified (principal); G81.94 Hemiplegia, unspecified affecting left nondominant side; N17.9 Acute kidney failure, unspecified; J45.909 Unspecified asthma, uncomplicated; E11.9 Type 2 diabetes mellitus without complications; F25.0 Schizoaffective disorder, bipolar type; E78.2 Mixed hyperlipidemia; F60.7 Dependent personality disorder; N18.3 Chronic kidney disease, stage 3 (moderate); E66.9 Obesity, unspecified; Z68.37 Body mass index [BMI] 37.0-37.9, adult; R29.704 NIHSS score 4; Z88.0 Allergy status to penicillin; E03.9 Hypothyroidism, unspecified

== ENCOUNTER 2016-10-30 15:09 | Emergency (ER) | payer OTHER ==
[~2016-10-30] VITALS: Ht 162.6 cm; Wt 102.1 kg
[~2016-10-30 15:09] MED LIST changes: +BISM262S7 PO; +MULTTAB58 PO
[2016-10-30 15:11] VITALS: TEMP 36.6
[2016-10-30] MEDS ORDERED: SODIUM CHLORIDE 0.9% 500ML 500 ML IV STA (15:24)
[2016-10-30] MEDS ORDERED: SODIUM CHLORIDE 0.9% 1000ML 1,000 ML IV SCH (15:24)
[2016-10-30 15:25] VITALS: O2SAT 99
--- NOTE | 2016-10-30 15:38 | EMERGENCY ROOM VISIT NOTE ---
History Report prepared by Donta: Aziza Gotti Under the Supervision of: Dr. Wilmer Marino M.D. First contact with patient: 15:18 Chief Complaint: STROKE SYMPTOMS Stated Complaint: LEANING TO ONE SIDE History of Present Illness The patient is a 55 year old female who presents to the Emergency Room with complaints of an episode of stroke symptoms starting today. The patient states that she has been leaning to the side all day and reports that her friend's pointed it out. The patient states that she normally has difficulty walking, but not like this. She notes that she has been having difficulty remembering things lately. The patient complains of being dizzy and off balance. The patient denies feeling weak. The patient notes she was here 3 weeks ago for similar symptoms. Source of History: patient Onset: today Position: other (global) Quality: other (global) Timing: other (episode) Associated Symptoms: No weakness Note: The patient complains of leaning to the side, difficulty walking, difficulty remembering things, dizziness, and feeling off balance. Review of Systems See HPI for pertinent positives & negatives. A total of 10 systems reviewed and were otherwise negative. Past Medical & Surgical Medical Problems: (1) ANXIETY STATE NOS (2) ASTHMA, UNSPECIFIED (3) CVA (cerebral vascular accident) (4) DIAB A[place]A WO COMPL, TYPE II OR UNSPEC TYPE, NOT UNCNTRLD (5) Fall (6) HX OF SCHIZOPHRENIA (7) MIXED HYPERLIPIDEMIA (8) schizoaffective disorder, bipolar type (9) thromboembolic event Family History Diabetes mellitus Hypertension Social History Smoking Status: Never Smoker Alcohol Use: none Drug Use: none Marital Status: single Housing Status: lives alone Occupation Status: unemployed Current/Historical Medications Scheduled Aspirin (Aspirin Ec), 81 MG PO QAM Atorvastatin (Lipitor), 80 MG PO HS Benztropine Mesylate (Cogentin), 1 MG PO BID Clozapine (Clozapine), 150 MG PO QAM Clozapine (Clozapine), 350 MG PO HS Lamotrigine (Lamictal), 200 MG PO BID Levothyroxine Sodium (Synthroid), 125 MCG PO QAM Lorazepam (Ativan), 0.5 MG PO HS Multiple Vitamin (Multivitamin), 1 TAB PO DAILY Omeprazole (Prilosec), 40 MG PO HS Quetiapine Fumarate (Seroquel), 200 MG PO QAM Quetiapine Fumarate (Seroquel), 300 MG PO HS Scheduled PRN Acetaminophen Tab (Tylenol), 325-650 MG PO Q4 PRN for Pain Albuterol Hfa (Ventolin Hfa), 2 PUFFS INH QID PRN for SOB/Wheezing Bismuth Subsalicylate (Pepto-Bismol), 15 ML PO DAILY PRN for Diarrhea Docusate Sodium (Colace), 1 CAP PO BID PRN for Constipation Meclizine Hcl (Meclizine Hcl), 1 TAB PO TID PRN for Dizziness or Vertigo Allergies Coded Allergies: Escitalopram (Verified Allergy, Unknown, MANIC, 10/30/16) Haloperidol (Verified Allergy, Unknown, unknown, 10/30/16) Penicillins (Verified Allergy, Unknown, GI UPSET, 10/30/16) Valproic Acid (Verified Adverse Reaction, Unknown, leg swelling, 10/30/16) Physical Exam Vital Signs Date Time Temp Pulse Resp B/P (MAP) Pulse Ox O2 Delivery O2 Flow Rate FiO2 10/30/16 17:27 80 16 134/86 98 10/30/16 16:17 84 22 127/88 97 Room Air 10/30/16 16:08 85 10/30/16 15:25 99 Room Air 10/30/16 15:11 36.6 95 20 141/90 96 Room Air Physical Exam GENERAL: Patient is a healthy-appearing well-nourished HEAD: Normocephalic atraumatic EYES: Ocular movements intact pupils equal and react to light OROPHARYNX mucous membranes are moist no exudates present no erythema or edema present NECK: Supple no nuchal rigidity CHEST: Good equal expansion LUNGS: Clear and equal to auscultation CARDIAC: Normal S1 and S2 ABDOMEN: Soft nontender no guarding BACK: No CVA tenderness EXTREMITIES: No pain upon palpation normal muscle strength in all groups no clubbing cyanosis or edema NEURO: Patient is following commands and answering questions appropriately. Alert and oriented x3 Cranial Nerves 2-12 grossly intact, patient walks normally , has no ataxia when walking, normal Romberg sign Medical Decision & Procedures ER Provider Diagnostic Interpretation: Radiology results as stated below per my review and radiologist interpretation: CHEST ONE VIEW PORTABLE CLINICAL HISTORY: 55 years-old Female presenting with Stroke. TECHNIQUE: Portable upright AP view of the chest was obtained. COMPARISON: 12/05/2015. FINDINGS: Cardiomediastinal silhouette normal. Lungs and pleural spaces clear. Dextroscoliotic curvature of the thoracic spine with associated degenerative changes. Upper abdomen normal. IMPRESSION: 1. No acute cardiopulmonary disease. Electronically signed by: Isai Traylor M.D. 10/30/2016 4:18 PM Dictated Date/Time: 10/30/2016 4:[address] SCAN OF THE BRAIN WITHOUT IV CONTRAST CLINICAL HISTORY: Strokelike symptoms. COMPARISON STUDY: CT of the brain dated 10/05/2016. MRI of the brain dated 10/06/2016. TECHNIQUE: Unenhanced axial CT scan of the brain is performed from the vertex to the skull base. Automated dose control exposure was utilized. A dose lowering technique was utilized adhering to the principles of ALARA. CT DOSE: 2377.66 mGycm FINDINGS: Brain parenchyma: There is minimal subcortical and periventricular microangiopathic disease. There is no hemorrhage, mass effect, or evidence of acute territorial ischemia by CT criteria. Marx-white matter is preserved. No extra-axial fluid collection is seen. Ventricles, sulci, cisterns: Normal in configuration. Intracranial vasculature: The visualized intracranial vasculature at the skull base is normal in appearance. Calvarium: Unremarkable. Sinuses and mastoids: Trace mucosal thickening is seen in the left maxillary antrum. The remaining visualized paranasal sinuses are clear. The mastoid air cells are well pneumatized. Orbits: The bony orbits are grossly intact. IMPRESSION: There is no hemorrhage, mass effect, or evidence of acute territorial ischemia by CT criteria. Electronically signed by: Ron Ortiz M.D. 10/30/2016 3:56 PM Dictated Date/Time: 10/30/2016 3:55 PM Laboratory Results 10/30/16 15:30 Red Blood Count 3.95, Mean Corpuscular Volume 92.2, Mean Corpuscular Hemoglobin 30.1, Mean Corpuscular Hemoglobin Concent 32.7, Mean Platelet Volume 9.6, Neutrophils (%) (Auto) 72.5, Lymphocytes (%) (Auto) 20.1, Monocytes (%) (Auto) 6.1, Eosinophils (%) (Auto) 0.7, Basophils (%) (Auto) 0.3, Neutrophils # (Auto) 5.14, Lymphocytes # (Auto) 1.42, Monocytes # (Auto) 0.43, Eosinophils # (Auto) 0.05, Basophils # (Auto) 0.02 10/30/16 15:30 Test 10/30/16 15:25 10/30/16 15:30 10/30/16 16:09 Urine Color YELLOW Urine Appearance CLEAR (CLEAR) Urine pH 6.5 (4.5-7.5) Urine Specific [place] 1.013 (1.000-1.030) Urine Protein NEG (NEG) Urine Glucose (UA) NEG (NEG) Urine Ketones NEG (NEG) Urine Occult Blood NEG (NEG) Urine Nitrite NEG (NEG) Urine Bilirubin NEG (NEG) Urine Urobilinogen NEG (NEG) Urine Leukocyte Esterase TRACE (NEG) Urine WBC (Auto) 1-5 /hpf (0-5) Urine RBC (Auto) 0-4 /hpf (0-4) Urine Hyaline Casts (Auto) 0 /lpf (0-5) Urine Epithelial Cells (Auto) 20-30 /lpf (0-5) Urine Bacteria (Auto) NEG (NEG) White Blood Count 7.08 K/uL (4.8-10.8) Red Blood Count 3.95 M/uL (4.2-5.4) Hemoglobin 11.9 g/dL (12.0-16.0) Hematocrit 36.4 % (37-47) Mean Corpuscular Volume 92.2 fL (80-100) Mean Corpuscular Hemoglobin 30.1 pg (25-34) Mean Corpuscular Hemoglobin Concent 32.7 g/dl (32-36) Platelet Count 249 K/uL (130-400) Mean Platelet Volume 9.6 fL (7.4-10.4) Neutrophils (%) (Auto) 72.5 % Lymphocytes (%) (Auto) 20.1 % Monocytes (%) (Auto) 6.1 % Eosinophils (%) (Auto) 0.7 % Basophils (%) (Auto) 0.3 % Neutrophils # (Auto) 5.14 K/uL (1.4-6.5) Lymphocytes # (Auto) 1.42 K/uL (1.2-3.4) Monocytes # (Auto) 0.43 K/uL (0.11-0.59) Eosinophils # (Auto) 0.05 K/uL (0-0.5) Basophils # (Auto) 0.02 K/uL (0-0.2) RDW Standard Deviation 48.3 fL (36.4-46.3) RDW Coefficient of Variation 14.3 % (11.5-14.5) Immature Granulocyte % (Auto) 0.3 % Immature Granulocyte # (Auto) 0.02 K/uL (0.00-0.02) Prothrombin Time 10.8 SECONDS (9.0-12.0) Prothromb Time International Ratio 1.0 (0.9-1.1) Activated Partial Thromboplast Time 25.0 SECONDS (21.0-31.0) Partial Thromboplastin Ratio 1.0 Anion Gap 7.0 mmol/L (3-11) Est Creatinine Clear Calc Drug Dose 61.6 ml/min Estimated GFR () 58.9 Estimated GFR (Non- 50.8 BUN/Creatinine Ratio 13.4 (10-20) Calcium Level 9.3 mg/dl (8.5-10.1) Total Creatine Kinase 234 U/L (26-192) Creatine Kinase MB 4.5 ng/ml (0.5-3.6) Creatine Kinase MB Ratio 1.9 (0-3.0) Troponin I < 0.015 ng/ml (0-0.045) Bedside Glucose 107 mg/dl (70-90) Labs reviewed by ED physician. Medications Administered Medications (Trade) Dose Ordered Sig/Joon Route Start Time Stop Time Status Last Admin Dose Admin Sodium Chloride 1,000 ml @ 50 mls/hr Q20H IV 10/30/16 15:24 10/30/16 17:49 DC 10/30/16 15:36 50 MLS/HR Sodium Chloride 500 ml @ 999 mls/hr Q31M STAT IV 10/30/16 15:24 10/30/16 15:54 DC 10/30/16 15:36 999 MLS/HR Meclizine HCl (Antivert Tab) 25 mg NOW STAT PO 10/30/16 16:56 10/30/16 16:57 DC 10/30/16 17:18 25 MG ECG Indication: other (stroke symptoms) Rate (beats per minute): 87 Rhythm: normal sinus Findings: no acute ischemic change, no ectopy, other (normal EKG) ED Course 1519: Past medical records reviewed. The patient was evaluated in room B7. A complete history and physical examination was performed. 1524: Ordered NSS 500 ml @ 999 mls/hr IV, NSS 1000 ml @ 50 mls/hr IV. 1650: I reexamined the patient. She is able to walk on her tiptoes and heels. She has no loss of balance what so ever. She is negative for Romberg sign. I discussed results and treatment plan with the patient. She verbalizes agreement and understanding. The patient is ready for discharge. 1656: Ordered Antivert Tab 25 mg PO. Medical Decision Differential diagnosis: Etiologies such as metabolic, infection, hypo/hyperglycemia, electrolyte abnormalities, cardiac sources, intracerebral event, toxicologic, neurologic, as well as others were entertained. His is a 55-year-old female who presents emergency department complaining of leaning to one side. However on physical examination the patient is not ataxic and has no Romberg sign. In addition the patient is also able to walk on her tiptoes and her heels while keeping her balance. The patient is actually holding her shoulder up. On repeat examination the patient is complaining of back pain as well as shoulder pain and I believe she may be experiencing a muscle spasms. I do not feel that this is a stroke in nature in addition the patient has a normal blood pressure. She was sent for CAT scan of the head however this is normal. Repeat examination revealed improvement patient's symptoms. The patient was given meclizine for dizziness in the emergency department. I do feel that this patient is well enough to be discharged home. Medication Reconcilliation Current Medication List: was personally reviewed by me Blood Pressure Screening Patient's blood pressure: Elevated blood pressure Blood pressure disposition: Referred to PCP Impression Primary Impression: Dizziness Scribe Attestation The scribe's documentation has been prepared under my direction and personally reviewed by me in its entirety. I confirm that the note above accurately reflects all work, treatment, procedures, and medical decision making performed by me. Departure Information Dispostion Home / Self-Care Prescriptions Meclizine Hcl (MECLIZINE HCL) 25 Mg Tab 1 TAB PO TID Y for Dizziness or Vertigo for 10 Days, #30 TAB Prov: Wilmer Marino MD 10/30/16 Referrals Deandre Benson M.D. (PCP) Forms HOME CARE DOCUMENTATION FORM, IMPORTANT VISIT INFORMATION Patient Instructions My [facility] Additional Instructions You have been examined and treated today on an emergency basis only. This is not a substitute for, or an effort to provide, complete comprehensive medical care. It is impossible to recognize and treat all injuries or illnesses in a single emergency department visit. It is therefore important that you follow up closely with Dr Benson. Call as soon as possible for an appointment. Thank you for your time and consideration. I look forward to speaking with you again soon. Please don't hesitate to call us if you have any questions.
[2016-10-30 15:42] VITALS: Ht 162.6 cm; Wt 102.1 kg
[2016-10-30 15:50] LABS: BASO % 0.3 %; BASO ABS # 0.02 K/uL (0-0.2); COMPLETE YES; EOS % 0.7 %; HEMATOCRIT 36.4 % (37-47); IG% 0.3 %; LYMPH % 20.1 %; LYMPH ABS # 1.42 K/uL (1.2-3.4); MEAN CELL VOLUME 92.2 fL (80-100); MEAN CORPUSCULAR HEMOGLOBIN 30.1 pg (25-34); MEAN CORPUSCULAR HGB CONC 32.7 g/dl (32-36); MEAN PLATELET VOLUME 9.6 fL (7.4-10.4); MONO % 6.1 %; NEUT % 72.5 %; PLATELET COUNT 249 K/uL (130-400); RED BLOOD COUNT 3.95 M/uL (4.2-5.4); WHITE BLOOD COUNT 7.08 K/uL (4.8-10.8)
[2016-10-30 15:51] LABS: URINE APPEARANCE CLEAR (CLEAR); URINE BILIRUBIN NEG (NEG); URINE COLOR YELLOW; URINE EPITHELIAL CELL AUTO 20-30 /lpf (0-5); URINE NITRITE NEG (NEG); URINE PH 6.5 (4.5-7.5); URINE SPECIFIC GRAVITY 1.013 (1.000-1.030); UROBILINOGEN NEG (NEG); ZZUR CULT IF INDIC CLEAN CATCH NO
[2016-10-30 15:55] LABS: MANUAL MICROSCOPIC REQUIRED? NO; REVIEW REQ? NO
--- NOTE | 2016-10-30 15:58 | DIAGNOSTIC IMAGING REPORT ---
CT SCAN OF THE BRAIN WITHOUT IV CONTRAST CLINICAL HISTORY: Strokelike symptoms. COMPARISON STUDY: CT of the brain dated 10/05/2016. MRI of the brain dated 10/06/2016. TECHNIQUE: Unenhanced axial CT scan of the brain is performed from the vertex to the skull base. Automated dose control exposure was utilized. A dose lowering technique was utilized adhering to the principles of ALARA. CT DOSE: 2377.66 mGycm FINDINGS: Brain parenchyma: There is minimal subcortical and periventricular microangiopathic disease. There is no hemorrhage, mass effect, or evidence of acute territorial ischemia by CT criteria. Marx-white matter is preserved. No extra-axial fluid collection is seen. Ventricles, sulci, cisterns: Normal in configuration. Intracranial vasculature: The visualized intracranial vasculature at the skull base is normal in appearance. Calvarium: Unremarkable. Sinuses and mastoids: Trace mucosal thickening is seen in the left maxillary antrum. The remaining visualized paranasal sinuses are clear. The mastoid air cells are well pneumatized. Orbits: The bony orbits are grossly intact. IMPRESSION: There is no hemorrhage, mass effect, or evidence of acute territorial ischemia by CT criteria. Electronically signed by: Ron Ortiz M.D. 10/30/2016 3:56 PM Dictated Date/Time: 10/30/2016 3:55 PM
[2016-10-30 16:05] LABS: PROTHROMBIN TIME (PATIENT) 10.8 SECONDS (9.0-12.0)
[2016-10-30 16:11] LABS: BLOOD UREA NITROGEN 16 mg/dl (7-18); BUN/CREATININE RATIO 13.4 (10-20); CALCIUM 9.3 mg/dl (8.5-10.1); CARBON DIOXIDE 27 mmol/L (21-32); CHLORIDE 105 mmol/L (98-107); GLUCOSE 106 mg/dl (70-99); POTASSIUM 4.4 mmol/L (3.5-5.1); SODIUM 139 mmol/L (136-145)
[2016-10-30 16:16] LABS: CKMB/CK RATIO 1.9 (0-3.0)
--- NOTE | 2016-10-30 16:19 | DIAGNOSTIC IMAGING REPORT ---
CHEST ONE VIEW PORTABLE CLINICAL HISTORY: 55 years-old Female presenting with Stroke. TECHNIQUE: Portable upright AP view of the chest was obtained. COMPARISON: 12/05/2015. FINDINGS: Cardiomediastinal silhouette normal. Lungs and pleural spaces clear. Dextroscoliotic curvature of the thoracic spine with associated degenerative changes. Upper abdomen normal. IMPRESSION: 1. No acute cardiopulmonary disease. Electronically signed by: Isai Traylor M.D. 10/30/2016 4:18 PM Dictated Date/Time: 10/30/2016 4:16 PM
[2016-10-30] MEDS ORDERED: LORA-741 PO (16:22)
[2016-10-30] MEDS ORDERED: MECLIZINE HCL 25 MG TAB PO STA (16:56)
[2016-10-30] MEDS ORDERED: MECL1TAB42 PO (16:58)
[2016-10-30 17:27] VITALS: BP 134/86; PULSE 80; O2SAT 98
== END 2016-10-30 17:28 | disposition home or self-care (01) ==
LOC: C.EDB 15:10
DX: R42 Dizziness and giddiness (principal); F41.9 Anxiety disorder, unspecified; J45.909 Unspecified asthma, uncomplicated; E11.9 Type 2 diabetes mellitus without complications; E78.5 Hyperlipidemia, unspecified; Z83.3 Family history of diabetes mellitus; Z82.49 Family history of ischemic heart disease and other diseases of the circulatory system; Z79.82 Long term (current) use of aspirin

== ENCOUNTER → 2016-11-07 | Outpatient (CLI) | payer OTHER ==
[~2016-11-07] MED LIST changes: +MECL1TAB42 PO
[2016-11-07 12:32] LABS: BASO % 0.6 %; BASO ABS # 0.03 K/uL (0-0.2); COMPLETE YES; EOS % 1.6 %; HEMATOCRIT 35.6 % (37-47); IG% 0.8 %; LYMPH % 24.4 %; LYMPH ABS # 1.19 K/uL (1.2-3.4); MEAN CELL VOLUME 93.9 fL (80-100); MEAN CORPUSCULAR HEMOGLOBIN 29.8 pg (25-34); MEAN CORPUSCULAR HGB CONC 31.7 g/dl (32-36); MEAN PLATELET VOLUME 9.8 fL (7.4-10.4); NEUT % 65.6 %; PLATELET COUNT 257 K/uL (130-400); RED BLOOD COUNT 3.79 M/uL (4.2-5.4); WHITE BLOOD COUNT 4.88 K/uL (4.8-10.8)
== END | disposition home or self-care (01) ==
LOC: C.LABBFT 07:53
PROVIDERS: ATTEND Psychiatry & Neurology Psychiatry
DX: Z79.899 Other long term (current) drug therapy (principal)

== ENCOUNTER → 2016-12-12 | Outpatient (CLI) | payer OTHER ==
[~2016-12-12] MED LIST changes: -MECL1TAB42 PO
[2016-12-12 12:50] LABS: URINE APPEARANCE CLOUDY (CLEAR); URINE BILIRUBIN NEG (NEG); URINE COLOR YELLOW; URINE EPITHELIAL CELL AUTO >30 /lpf (0-5); URINE NITRITE NEG (NEG); URINE PH 5.5 (4.5-7.5); URINE SPECIFIC GRAVITY 1.021 (1.000-1.030); UROBILINOGEN NEG (NEG)
[2016-12-12 12:57] LABS: MANUAL MICROSCOPIC REQUIRED? NO; REVIEW REQ? YES
== END | disposition home or self-care (01) ==
LOC: C.LABBFT 08:18
PROVIDERS: ATTEND Physician Assistant Medical
DX: R31.0 Gross hematuria (principal)

== ENCOUNTER → 2016-12-28 | Outpatient (CLI) | payer OTHER ==
--- NOTE | 2016-12-28 11:53 | DIAGNOSTIC IMAGING REPORT ---
Thyroid ultrasonography CLINICAL HISTORY: NECK FULLNESS COMPARISON STUDY: No previous studies for comparison. FINDINGS: The right lobe of thyroid measures 27 x 10 x 11 mm. Left lobe of the thyroid measures 24 x 9 x 11 mm. There is a circumscribed nodule at the right lobe isthmus junction measuring 6 x 3 x 3 mm. IMPRESSION: 1. No evidence of thyroid enlargement 2. Incidental circumscribed nodule at the right lobe isthmus junction measuring 6 x 3 x 3 mm. This does not meet the criteria for biopsy recommendation Electronically signed by: Arron Ramirez M.D. 12/28/2016 11:51 AM Dictated Date/Time: 12/28/2016 11:49 AM
== END | disposition home or self-care (01) ==
LOC: C.ULTR 10:35
PROVIDERS: ATTEND Physician Assistant
DX: E04.1 Nontoxic single thyroid nodule (principal)

== ENCOUNTER → 2017-01-11 | Outpatient (CLI) | payer OTHER ==
[2017-01-11 13:30] LABS: ALT/SGPT 21 U/L (12-78); AST/SGOT 12 U/L (15-37); BLOOD UREA NITROGEN 10 mg/dl (7-18); BUN/CREATININE RATIO 9.9 (10-20); CALCIUM 9.1 mg/dl (8.5-10.1); CARBON DIOXIDE 25 mmol/L (21-32); CHLORIDE 106 mmol/L (98-107); CREATININE 0.97 mg/dl (0.60-1.20); GLUCOSE 136 mg/dl (70-99); POTASSIUM 4.5 mmol/L (3.5-5.1); SODIUM 140 mmol/L (136-145)
[2017-01-11 13:41] LABS: ALB/GLOB RATIO 1.3 (0.9-2); ALKALINE PHOSPHATASE 129 U/L (45-117); CHOLESTEROL 148 mg/dl (0-200); CHOLESTEROL/HDL RATIO 2.6; HDL CHOLESTEROL 57 mg/dl; LDL CHOLESTEROL CALCULATED 59 mg/dl; TRIGLYCERIDES 160 mg/dl (0-150); VERY LOW DENSITY LIPOPROT CALC 32 mg/dl
== END | disposition home or self-care (01) ==
LOC: C.LABBFT 08:59
PROVIDERS: ATTEND Internal Medicine
DX: E11.39 Type 2 diabetes mellitus with other diabetic ophthalmic complication (principal)

== ENCOUNTER → 2017-01-15 | Outpatient (CLI) | payer OTHER ==
[2017-01-15 18:17] LABS: RATIO 10.9 mcg/mg (0-30.0)
== END | disposition home or self-care (01) ==
LOC: C.LABBFT 15:53
PROVIDERS: ATTEND Internal Medicine
DX: E11.39 Type 2 diabetes mellitus with other diabetic ophthalmic complication (principal)

== ENCOUNTER → 2017-11-11 | Outpatient (CLI) | payer OTHER ==
[~2017-11-11] MED LIST changes: +ACET-1693 PO; -ACET325T96 PO; +BCTRO EXT; +BENZ-89 PO; -CGN1 PO; +LAMO200T35 PO; -LAMO200T38 PO; +LDDP5 TD; +MRLP17X PO
== END | disposition home or self-care (01) ==
LOC: C.LABBFT 14:48
PROVIDERS: ATTEND Physician Assistant Medical
DX: M62.82 Rhabdomyolysis (principal)

== ENCOUNTER 2020-11-21 08:30 | Observation (INO) ==
--- NOTE | 2020-11-21 09:30 | CT Scan Report ---
THORACIC SPINE CT CT DOSE: HISTORY: Back pain. fall, pain TECHNIQUE: Multiaxial CT images of the thoracic spine were performed and reformatted in the sagittal and coronal plane without the use of contrast. A dose lowering technique was utilized adhering to e principles of ALARA. COMPARISON: None. FINDINGS: No acute fracture or subluxation within the thoracic spine. There is mild dextroscoliosis. Subtle superior endplate indentation and sclerosis at T3 is likely chronic. No paravertebral edema to suggest an acute injury. Paravertebral soft tissues are unremarkable. No significant central canal n arrowing by CT technique. Nodular and patchy airspace opacities within the base of the left lower lob e. This favors an infectious/inflammatory process and could be due to an aspiration pneumonia. Small amount of fluid within the nondistended esophagus. IMPRESSION: 1. No acute fractures within the thoracic spine. 2. Nodular and patchy airspace opacities within the base of the left lower lobe. This favors an infec tious/inflammatory process and could be due to an aspiration pneumonia. ACT 112: Negative or not required by law. Electronically signed by: Jermaine Cheek M.D. 11/21/2020 9:28 AM
--- NOTE | 2020-11-21 09:35 | CT Scan Report ---
CT cervical spine wo con CT DOSE: 1591.38 mGy.cm CLINICAL HISTORY: 60 years-old Female with fall, pain. Acute neck pain status post fall COMPARISON: CT cervical spine 08/09/2020, 10/07/2017, 06/09/2014, MRI cervical spine 12/21/2019. TECHNIQUE: Multiple axial CT images of the cervical spine were obtained without contrast. A dose low ering technique was utilized adhering to the principles of ALARA. FINDINGS: Advanced multilevel osteophytic spurring which is most pronounced anteriorly with bridging osteophyto sis. Mild to moderate multilevel intervertebral disc space narrowing with posterior disc osteophyte c omplex formations and mild to moderate facet arthrosis. Partially calcified pannus posterior to odont oid process. No acute fracture or subluxation of the cervical spine. Levoscoliosis. Mild superior end plate compression of the T3 vertebral body with less than 20% is noted without retropulsion. This is new from 2019. No pneumothorax. No prevertebral edema. IMPRESSION: 1. No acute fracture or subluxation of the cervical spine. 2. 20% superior endplate compression deformity at T3 without retropulsion is new from 12/21/2019. [place] elate with point tenderness to exclude acute or subacute fracture. ACT 112: Negative or not required by law. The above report was generated using voice recognition software. It may contain grammatical, syntax o r spelling errors. Electronically signed by: Lanre Green M.D. 11/21/2020 9:34 AM
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
--- NOTE | 2020-11-21 11:09 | Emergency Department Note ---
General (ED) Blank Date of Service November 21, 2020 ED Visit Note I personally saw, interviewed, and examined the patient. Patient's case was discussed with Dr. Pires, ED attending, and I assisted with MDM. Please see attending documentation for full details. Resident Activity Tracking Resident Involvement: Resident Care Provided Care Provided: Adult ED : Fall Qualifiers: Encounter type: initial encounter Qualified Code(s): W19.XXXA - Unspecified fall, initial encounter Cervical strain, acute Qualifiers: Encounter type: initial encounter Qualified Code(s): S16.1XXA - Strain of muscle, fascia and tendon at neck level, initial encounter
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
[2020-11-21] MEDS ORDERED: ONDANSETRON INJ 2 MG/ML 2 ML VIAL IV PRN (18:16)
[2020-11-21] MEDS ORDERED: GLUCOSE 10 TABS/TUBE PO PRN (18:16)
[2020-11-21] MEDS ORDERED: GLUCOSE 40% GEL 15 GM TUBE PO PRN (18:16)
[2020-11-21] MEDS ORDERED: GLUCAGON FOR INJ 1 MG VIAL SQ PRN (18:16)
[2020-11-21] MEDS ORDERED: CARBOHYDRATES FOR HYPOGLYCEMIA PO PRN (18:16)
[2020-11-21] MEDS ORDERED: DEXTROSE 50% 50 ML SYRINGE IV PRN (18:16)
[2020-11-21] MEDS ORDERED: MECLIZINE HCL 25 MG TAB PO PRN (18:32)
[2020-11-21] MEDS: ACETAMINOPHEN 325 MG TAB PO PRN (18:55)
[2020-11-21] MEDS: INSULIN ASPART 100 UNITS/ML 3 ML PEN SC SCH ×2 (19:21→22:07)
[2020-11-21] MEDS: BENZTROPINE MESYLATE 1 MG TAB PO SCH (20:33)
[2020-11-21] MEDS: LORazepam 0.5 MG TAB PO SCH (20:33)
[2020-11-21] MEDS: ROSUVASTATIN CALCIUM 20 MG TAB PO SCH (20:34)
[2020-11-21] MEDS: cloZAPine 100 MG TAB PO SCH (20:34)
[2020-11-21] MEDS: cloZAPine 25 MG TAB PO SCH (20:34)
[2020-11-21] MEDS: lamoTRIgine 100 MG TAB PO SCH (20:34)
[2020-11-21] MEDS: QUEtiapine FUMARATE 300 MG TABLET PO SCH (20:35)
[2020-11-22] MEDS: LEVOTHYROXINE SODIUM 150 MCG TABLET PO SCH (06:58)
[2020-11-22 07:04] LABS: Basophils # (auto) 0.02 K/uL (0-0.2); Basophils % (auto) 0.3 %; Eosinophils # (auto) 0.07 K/uL (0-0.5); Eosinophils % (auto) 1.1 %; Hematocrit (blood only) 32.2 % (37-47); Hemoglobin 10.3 g/dL (12.0-16.0); Immature Granulocytes # (auto) 0.01 K/uL (0.00-0.02); Immature Granulocytes % (auto) 0.2 %; Lymphocytes % (auto) 14.2 %; Mean Corpuscular Hemoglobin 29.2 pg (25-34); Mean Corpuscular Volume 91.2 fL (80-100); Mean Platelet Volume 8.9 fL (7.4-10.4); Monocytes # (auto) 0.55 K/uL (0.11-0.59); Monocytes % (auto) 8.7 %; Neutrophils # (auto) 4.78 K/uL (1.4-6.5); Neutrophils % (auto) 75.5 %; Platelet Count 247 K/uL (130-400); RDW Coefficient of Variation 14.6 % (11.5-14.5); RDW Standard Deviation 49.1 fL (36.4-46.3); Red Blood Count 3.53 M/uL (4.2-5.4); White Blood Count 6.33 K/uL (4.8-10.8)
[2020-11-22 07:44] LABS: BUN Creatinine Ratio 15.6 (10-20); Calcium 8.7 mg/dl (8.5-10.1); Creatinine Clr Calc Pharmacy 76.3 ml/min; Est GFR (African American) 81.6 ml/min; Est GFR (Non-African American) 70.4 ml/min; Magnesium 2.2 mg/dl (1.8-2.4); Potassium 4.5 mmol/L (3.5-5.1)
[2020-11-22 08:13] LABS: Estimated Average Glucose 131 mg/dl; Hemoglobin A1C 6.2 % (4.5-5.6)
[2020-11-22] MEDS: cloZAPine 100 MG TAB PO SCH ×2 (08:22→20:43)
[2020-11-22] MEDS: PANTOprazole 40 MG TAB PO SCH (08:22)
[2020-11-22] MEDS: lamoTRIgine 100 MG TAB PO SCH ×2 (08:22→20:42)
[2020-11-22] MEDS: QUEtiapine FUMARATE 100 MG TABLET PO SCH (08:22)
[2020-11-22] MEDS: ACETAMINOPHEN 325 MG TAB PO PRN (08:22)
[2020-11-22] MEDS: ASPIRIN 81 MG ECTAB PO SCH (08:23)
[2020-11-22] MEDS: cloZAPine 25 MG TAB PO SCH ×2 (08:23→20:44)
[2020-11-22] MEDS: metFORMIN HCL ER 500 MG TABCR PO SCH (08:23)
[2020-11-22] MEDS: INSULIN ASPART 100 UNITS/ML 3 ML PEN SC SCH ×4 (08:57→20:45)
[2020-11-22] MEDS: BENZTROPINE MESYLATE 1 MG TAB PO SCH ×2 (09:06→20:42)
--- NOTE | 2020-11-22 16:55 | Ultrasound Report ---
ULTRASOUND RIGHT LOWER EXTREMITY VENOUS CLINICAL HISTORY: Right leg pain. COMPARISON STUDY: No priors. TECHNIQUE: Real-time, grayscale, and color Doppler sonography of the deep veins of the right lower ex tremity was performed from the inguinal crease to the calf. Compression and augmentation were utilize d. FINDINGS: There is no sonographic evidence of deep venous thrombosis identified in the right lower ex tremity. The common femoral, superficial femoral, and popliteal veins are patent and normally giovany sible. The greater saphenous vein and the profunda femoris vein at the junction with the common femor al vein are clear. The visualized calf veins are patent. IMPRESSION: There is no sonographic evidence of deep venous thrombosis identified in the right lower extremity. ACT 112: Negative or not required by law. Electronically signed by: Ron Ortiz M.D. 11/22/2020 4:54 PM
--- NOTE | 2020-11-22 20:10 | Hospitalist Progress Note ---
Date of Service November 22, 2020 Assessment & Plan (1) Fall: Plan: Patient has had ongoing frequent falls. Patient is being placed in observation, await PT and OT evaluation. Patient is agreeable to go to acute rehab, awaiting insurance approval for this. Patient should consider fall risk while she remains in the hospital. Longstanding balance issues rather than just the last few months per prior documentation. Prior [facility] visit in 2018. B12 level for basic workup as not on EHR (2) Compression fracture of T3 vertebra: Plan: Seen on CT scan, suspect this may be injury from previous fall Patient is currently asymptomatic from this. Can be addressed by PT during evaluation. Vitamin D level with Am labs (3) DMII (diabetes mellitus, type 2): Plan: Continue Metformin as ordered HbA1C 6.2 Sliding scale insulin Carb controlled diet (4) Hypertension: Plan: Blood pressure seems to be controlled I will order orthostatics to ensure that is not a possible etiology to her falls. (5) Mixed hyperlipidemia: Plan: Continue statin as ordered (6) Schizophrenia: Plan: Continue medications including clozapine and Lamictal. If there is consideration that psychiatric medications are causing instability, can consider psychiatry evaluation. (7) Right calf pain: Plan: US venous doppler. PT/DP pulses on this side are normal therefore no concern for peripheral artery disease. Suspect soft tissue injury. Ankle movements appear all intact. Admission and Anticipated Discharge Date Admission Date: November 21, 2020 Subjective Difficult to get any history from the patient as she tells me she has some memory difficulties which is co-orborated with prior notes. Feels her recurrent falls are due to feeling unbalanced. Takes meclizine every morning which likely is not helping. No lightheadedness or vertigo sensation. Main ongoing concern is right calf pain. New since her last fall. She also notes some mild thoracic back pain in the area of her. Patient admitted for placement. Awaiting PT/OT and referrals at this time. Review of Systems Review of Systems: All systems reviewed & are unremarkable except as noted in HPI & below Physical Exam Constitutional: well developed, well nourished and + obese; no acute distress Neck: trachea midline, no thyromegaly Respiratory: normal respiratory effort Auscultation: lungs clear to auscultation bilaterally; no crackles, no rales, no rhonchi and no wheezes Cardiovascular: Rate/Rhythm: regular rate and regular rhythm Heart Sounds: normal S1 and normal S2 Extremities: + calf tenderness (Right); no pedal edema Gastrointestinal (Abdomen): Inspection/Auscultation: abdomen normal to inspection Percussion/Palpation: abdomen soft; abdomen nontender, no guarding , abdomen not rigid and no hepatosplenomegaly Skin: no rashes, warm and dry Neurologic: moves all extremities and awake; not confused Speech / Cognition: normal speech Motor/Sensory: + sensory deficit (Toes feet b/l reduced); no tremor Coordination: normal [id number] test Results & Data Results & Data ([facility]) Vital Signs (Past 12 Hours) Vital Signs Temp Pulse Resp BP Pulse Ox 11/22/20 16:50 37.2 C 85 16 113/77 97 PG Care Time/CCT Total # of Minutes Spent Total Time Spent with Patient: Total time spent is greater than 50% in coordination of care (as documented) at patient's floor/unit and/or counseling patient: Coding Level of Care Code 58824 Subseq Obs Care Lvl 2 Diagnoses Fall W19.XXXA Encounter type: initial encounter Compression fracture of T3 vertebra S22.030A DMII (diabetes mellitus, type 2) E11.9 Hypertension I10 Mixed hyperlipidemia E78.2 Schizophrenia F20.9 Right calf pain M79.661 (1) Fall Encounter type: initial encounter Qualified Code(s): W19.XXXA - Unspecified fall, initial encounter
[2020-11-22] MEDS: LORazepam 0.5 MG TAB PO SCH (20:42)
[2020-11-22] MEDS: ROSUVASTATIN CALCIUM 20 MG TAB PO SCH (20:43)
[2020-11-22] MEDS: QUEtiapine FUMARATE 300 MG TABLET PO SCH (20:43)
[2020-11-23] MEDS: LEVOTHYROXINE SODIUM 150 MCG TABLET PO SCH (04:54)
[2020-11-23] MEDS: ACETAMINOPHEN 325 MG TAB PO PRN ×2 (04:54→09:54)
[2020-11-23 07:30] LABS: Lyme Ab IgG w/WB Rflx Negative (Negative); Lyme Ab IgM w/WB Rflx Negative (Negative)
[2020-11-23] MEDS: lamoTRIgine 100 MG TAB PO SCH ×2 (09:40→21:18)
[2020-11-23] MEDS: metFORMIN HCL ER 500 MG TABCR PO SCH (09:40)
[2020-11-23] MEDS: ASPIRIN 81 MG ECTAB PO SCH (09:40)
[2020-11-23] MEDS: cloZAPine 100 MG TAB PO SCH ×2 (09:41→21:17)
[2020-11-23] MEDS: PANTOprazole 40 MG TAB PO SCH (09:41)
[2020-11-23] MEDS: BENZTROPINE MESYLATE 1 MG TAB PO SCH ×2 (09:41→21:17)
[2020-11-23] MEDS: cloZAPine 25 MG TAB PO SCH ×2 (09:41→21:19)
[2020-11-23] MEDS: QUEtiapine FUMARATE 100 MG TABLET PO SCH (09:41)
[2020-11-23] MEDS: INSULIN ASPART 100 UNITS/ML 3 ML PEN SC SCH ×4 (09:41→23:29)
--- NOTE | 2020-11-23 13:30 | XRay Report ---
SINGLE VIEW CHEST CLINICAL HISTORY: Airspace opacities seen on thoracic spine CT. FINDINGS: An AP, portable, upright chest radiograph is compared to study dated 01/28/2018. Correlatio n is made with chest CT dated 07/25/[address] dated 11/21/2020. The examination is deg raded by portable technique and apical lordotic positioning. The heart is mildly enlarged. The pulmon sandee vasculature is noncongested. There is bibasilar scarring/atelectasis. No airspace consolidation o r large pleural effusion is identified. No pneumothorax is seen. The skeletal structures are osteopen ic. The bony thorax is grossly intact. IMPRESSION: 1. Mild cardiomegaly with no acute cardiopulmonary abnormality. 2. Patchy opacities at the left lung base seen on the thoracic spine CT likely representing a mild in fectious/inflammatory pneumonitis. This cannot be evaluated by chest x-ray. ACT 112: Negative or not required by law. Electronically signed by: Ron Ortiz M.D. 11/23/2020 1:28 PM
--- NOTE | 2020-11-23 14:48 | Hospitalist Progress Note ---
Date of Service November 23, 2020 Assessment & Plan (1) Right calf pain: Plan: US venous doppler negative for DVT Although she complains of calf pain her right ankle has the most exam findings of concern. XR right ankle. Achilles tendon painful but appears intact ?partial tear. Discussed with US and do not perform MSK US here. Pending XR may need MRI +/- ortho review. (2) Fall: Plan: Patient has had ongoing frequent falls. Patient is being placed in observation, await PT and OT evaluation. Patient is agreeable to go to acute rehab, awaiting insurance approval for this. Patient should consider fall risk while she remains in the hospital. Longstanding balance issues rather than just the last few months per prior documentation. Prior [facility] visit in 2018. B12 level WNL (3) Compression fracture of T3 vertebra: Plan: Seen on CT scan, suspect this may be injury from previous fall Patient is currently asymptomatic from this. Can be addressed by PT during evaluation. Vitamin D level mildly low, will start supplementation for this. (4) DMII (diabetes mellitus, type 2): Plan: Continue Metformin as ordered HbA1C 6.2 Sliding scale insulin Carb controlled diet (5) Hypertension: Plan: Blood pressure seems to be controlled Not orthostatic (6) Mixed hyperlipidemia: Plan: Continue statin as ordered (7) Schizophrenia: Plan: Continue medications including clozapine and Lamictal. If there is consideration that psychiatric medications are causing instability, can consider psychiatry evaluation. Admission and Anticipated Discharge Date Admission Date: November 21, 2020 Subjective Continued right calf pain. US venous doppler yesterday negative for DVT. Worse weight bearing. Otherwise at her baseline generalized off balance. No fever or chills. Eating and drinking well. Review of Systems Review of Systems: All systems reviewed & are unremarkable except as noted in HPI & below Physical Exam Constitutional: well developed, well nourished and + obese; no acute distress Neck: trachea midline, no thyromegaly Respiratory: normal respiratory effort Auscultation: lungs clear to auscult ation bilaterally; no crackles, no rales, no rhonchi and no wheezes Cardiovascular: Rate/Rhythm: regular rate and regular rhythm Heart Sounds: normal S1 and normal S2 Extremities: + calf tenderness (Right); no pedal edema Gastrointestinal (Abdomen): Inspection/Auscultation: abdomen normal to inspection Percussion/Palpation: abdomen soft; abdomen nontender, no guarding, abdomen not rigid and no hepatosplenomegaly Musculoskeletal: ecchymosis surrounding medial posterior ankle. right ankle joint effusion present. Achilles tendon painful on palpation. Lagunas test c auses plantarflexion. dorsiflexion painful but plantarflexion appears equal in power to left side. Skin: no rashes, warm and dry Neurologic: moves all extremities and awake; not confused Speech / Cognition: normal speech Motor/Sensory: + sensory deficit (Toes feet b/l reduced); no tremor Results & Data Results & Data ([facility]) Vital Signs (Past 12 Hours) Vital Signs Temp Pulse Resp BP Pulse Ox 11/23/20 07:24 36.7 C 84 18 116/76 95 PG Care Time/CCT Total # of Minutes Spent Total Time Spent with Patient: Total time spent is greater than 50% in coordination of care (as documented) at patient's floor/unit and/or counseling patient: Coding Level of Care Code 43091 Subseq Hosp Care Lvl 2 Diagnoses Fall W19.XXXA Encounter type: initial encounter Compression fracture of T3 vertebra S22.030A DMII (diabetes mellitus, type 2) E11.9 Hypertension I10 Mixed hyperlipidemia E78.2 Schizophrenia F20.9 Right calf pain M79.661 (1) Fall Encounter type: initial encounter Qualified Code(s): W19.XXXA - Unspecified fall, initial encounter
[2020-11-23 15:15] LABS: Appearance Urine Clear (Clear); Bilirubin Urine Negative (Negative); Blood Urine Negative (Negative); Color Urine Yellow; Epithelial Cell Urine Auto >30 /lpf (0-5); Glucose Urine UA Negative (Negative); Ketones Urine Negative (Negative); Leukocyte Esterase Urine 1+ (Negative); Nitrite Urine Negative (Negative); Protein Urine Negative (Negative); RBC Urine Automated 0-4 /hpf (0-4); Specific Gravity Urine 1.014 (1.000-1.030); Urobilinogen Urine Negative (Negative)
[2020-11-23 15:32] LABS: Bacteria Urine Automated 1+ (Negative)
--- NOTE | 2020-11-23 16:02 | XRay Report ---
RIGHT ANKLE 3 VIEWS CLINICAL HISTORY: Right ankle pain. FINDINGS: 3 views of the right ankle are obtained. No prior studies are available for comparison at t he time of dictation. The skeletal structures are osteopenic. Question a tiny avulsion fracture along the lateral aspect of the talus. No additional findings are concerning for acute fracture. The ankle mortise is intact. Degenerative spurring is seen along the dorsal aspect of the tarsal bones. There are large dorsal and plantar calcaneal enthesophytes. Diffuse soft tissue edema is present throughout the right lower extremity. IMPRESSION: 1. Question a tiny avulsion fracture along the lateral aspect of the talus. 2. No additional findings are concerning for acute fracture. 3. Diffuse soft tissue edema is noted. Electronically signed by: Ron Ortiz M.D. 11/23/2020 4:00 PM
--- NOTE | 2020-11-23 21:00 | XRay Report ---
XR tibia fibula RT 2V CLINICAL HISTORY: right lower extremity pain ?fracture COMPARISON STUDY: Right ankle 11/23/2020. FINDINGS: No fracture or dislocation within the right tibia or fibula. There is diffuse soft tissue s welling within the right lower leg. This most pronounced distally. No radiopaque foreign bodies. Larg e plantar and posterior calcaneal spurs are noted. IMPRESSION: Diffuse soft tissue swelling within the right lower leg. No fractures. ACT 112: Negative or not required by law. Electronically signed by: Jermaine Cheek M.D. 11/23/2020 8:59 PM
[2020-11-23] MEDS: LORazepam 0.5 MG TAB PO SCH (21:15)
[2020-11-23] MEDS: QUEtiapine FUMARATE 300 MG TABLET PO SCH (21:17)
[2020-11-23] MEDS: ROSUVASTATIN CALCIUM 20 MG TAB PO SCH (21:17)
[2020-11-24] MEDS: LEVOTHYROXINE SODIUM 150 MCG TABLET PO SCH (04:09)
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
[2020-11-24] MEDS: PANTOprazole 40 MG TAB PO SCH (08:52)
[2020-11-24] MEDS: cloZAPine 25 MG TAB PO SCH ×2 (08:52→20:14)
[2020-11-24] MEDS: BENZTROPINE MESYLATE 1 MG TAB PO SCH ×2 (08:53→20:15)
[2020-11-24] MEDS: ASPIRIN 81 MG ECTAB PO SCH (08:53)
[2020-11-24] MEDS: QUEtiapine FUMARATE 100 MG TABLET PO SCH (08:53)
[2020-11-24] MEDS: metFORMIN HCL ER 500 MG TABCR PO SCH (08:53)
[2020-11-24] MEDS: cloZAPine 100 MG TAB PO SCH ×2 (08:54→20:16)
[2020-11-24] MEDS: CHOLECALCIFEROL 1,000 UNITS 25 MCG TAB PO SCH (08:54)
[2020-11-24] MEDS: lamoTRIgine 100 MG TAB PO SCH ×2 (08:54→20:14)
[2020-11-24] MEDS: INSULIN ASPART 100 UNITS/ML 3 ML PEN SC SCH ×4 (09:43→22:21)
[2020-11-24] MEDS: ACETAMINOPHEN 325 MG TAB PO PRN (12:28)
--- NOTE | 2020-11-24 13:32 | Hospitalist Progress Note ---
Date of Service November 24, 2020 Assessment & Plan (1) Right calf pain: Plan: US venous doppler negative for DVT Appreciate orthopedic consult - right gastroc strain (2) Fall: Plan: Patient has had ongoing frequent falls. Patient is being placed in observation, await PT and OT evaluation. Patient is agreeable to go to acute rehab, awaiting insurance approval for this. Patient should consider fall risk while she remains in the hospital. Longstanding balance issues rather than just the last few months per prior documentation. Prior [facility] visit in 2018. B12 level WNL (3) Compression fracture of T3 vertebra: Plan: Seen on CT scan, suspect this may be injury from previous fall Patient is currently asymptomatic from this. Can be addressed by PT during evaluation. Vitamin D level mildly low, started on supplementation (4) DMII (diabetes mellitus, type 2): Plan: Continue Metformin as ordered HbA1C 6.2 Sliding scale insulin Carb controlled diet (5) Hypertension: Plan: Blood pressure seems to be controlled Not orthostatic (6) Mixed hyperlipidemia: Plan: Continue statin as ordered (7) Schizophrenia: Plan: Continue medications including clozapine and Lamictal. If there is consideration that psychiatric medications are causing instability, can consider psychiatry evaluation. Plan: Disposition - medically stable for discharge pending placement / insurance authorization Admission and Anticipated Discharge Date Admission Date: November 23, 2020 Subjective No acute events overnight. Continued right calf and ankle pain. Orthopedics seen and diagnosed right gastroc strain. Confirmed Achilles tendon intact. No sign of fracture from XRs. Patient currently in walking boot but yet to walk around the room with it. Awaiting placement authorixation at this time. Review of Systems Review of Systems: All systems reviewed & are unremarkable except as noted in HPI & below Physical Exam Constitutional: well developed, well nourished and + obese; no acute distress Respiratory: normal respiratory effort Cardiovascular: Extremities: + calf tenderness (Right); no pedal edema Skin: no rashes, warm and dry Neurologic: moves all extremities and awake; not confused Speech / Cognition: normal speech Motor/Sensory: + sensory deficit (Toes feet b/l reduced); no tremor Coordination: normal [id number] test Results & Data Results & Data ([facility]) Vital Signs (Past 12 Hours) Vital Signs Temp Pulse Resp BP Pulse Ox 11/24/20 07:00 36.7 C 88 20 111/73 94 PG Care Time/CCT Total # of Minutes Spent Total Time Spent with Patient: Total time spent is greater than 50% in coordination of care (as documented) at patient's floor/unit and/or counseling patient: Coding Level of Care Code 17854 Subseq Hosp Care Lvl 1 Diagnoses Right calf pain M79.661 Fall W19.XXXA Encounter type: initial encounter Compression fracture of T3 vertebra S22.030A DMII (diabetes mellitus, type 2) E11.9 Hypertension I10 Mixed hyperlipidemia E78.2 Schizophrenia F20.9 (1) Fall Encounter type: initial encounter Qualified Code(s): W19.XXXA - Unspecified fall, initial encounter
[2020-11-24] MEDS: QUEtiapine FUMARATE 300 MG TABLET PO SCH (20:16)
[2020-11-24] MEDS: ROSUVASTATIN CALCIUM 20 MG TAB PO SCH (20:17)
[2020-11-24] MEDS: LORazepam 0.5 MG TAB PO SCH (20:18)
[2020-11-25] MEDS: LEVOTHYROXINE SODIUM 150 MCG TABLET PO SCH (05:05)
[2020-11-25] MEDS: INSULIN ASPART 100 UNITS/ML 3 ML PEN SC SCH ×3 (09:34→17:38)
[2020-11-25] MEDS: cloZAPine 100 MG TAB PO SCH ×2 (10:00→14:09)
[2020-11-25] MEDS: ASPIRIN 81 MG ECTAB PO SCH ×2 (10:00→14:09)
[2020-11-25] MEDS: BENZTROPINE MESYLATE 1 MG TAB PO SCH (10:00)
[2020-11-25] MEDS: CHOLECALCIFEROL 1,000 UNITS 25 MCG TAB PO SCH ×2 (10:00→14:09)
[2020-11-25] MEDS: metFORMIN HCL ER 500 MG TABCR PO SCH ×2 (10:01→14:09)
[2020-11-25] MEDS: cloZAPine 25 MG TAB PO SCH (10:01)
[2020-11-25] MEDS: lamoTRIgine 100 MG TAB PO SCH ×2 (10:01→14:09)
[2020-11-25] MEDS: PANTOprazole 40 MG TAB PO SCH (10:01)
[2020-11-25] MEDS: QUEtiapine FUMARATE 100 MG TABLET PO SCH ×2 (10:01→14:09)
--- NOTE | 2020-11-25 17:16 | Discharge Summary ---
Date of Service November 25, 2020 Admission HPI Per Admitting Provider This is a 60-year-old female with past medical history of previous falls, GERD, hyperlipidemia, and hypothyroidism who presents today status post fall. Patient is pleasant and a good historian. Patient lives alone in an apartment building. I do see from documentation she had a previous fall in August of this year. Patient states that she fell earlier this week and was unable to get up. She tends to fall forward onto her knees. She is able to call her neighbor at that time who was able to help her up and did not seek any further medical attention. However, earlier this morning she had a second fall under similar circumstances. The neighbor heard her screaming through the dominguez and again it came to help her up. At this time, the patient was brought to the emergency room for further evaluation. Patient had a work-up in the emergency room including imaging as detailed below. PT and OT saw the patient in the emergency room and is felt that she would benefit from acute rehab. Patient was given a walker as well. However, the patient is not comfortable returning home is therefore being placed in observation to wait for approval for acute rehab. At the time my evaluation, patient does not complain of any pain. Of note, she does not have upper thoracic pain despite CT findings of T3 compression fracture is new since December 2019. Patient denies any other complaints such as pain, shortness of breath, palpitations. She also notes she did not strike her head or pass out during her fall. Discharge Data Allergies Allergy/AdvReac Type Severity Reaction Status Date / Time escitalopram Allergy Unknown MANIC Verified 11/21/20 09:25 haloperidol Allergy Unknown unknown Verified 11/21/20 09:25 lithium Allergy Unknown . Verified 11/21/20 09:25 Penicillins AdvReac Unknown GI UPSET Verified 11/21/20 09:25 valproic acid AdvReac Unknown leg Verified 11/21/20 09:25 swelling Consultations 11/21/20 11:33 ED Decision to Admit Stat 11/23/20 19:04 Consult Orthopedic Surgery Routine Ordered Studies 11/21/20 08:56 CT cervical spine wo con Stat CT thoracic spine wo con Stat 11/22/20 16:30 US venous doppler LE RT Urgent Hospital Course (1) Right calf pain: US venous doppler negative for DVT Appreciate orthopedic consult - right gastroc strain (2) Fall: Patient has had ongoing frequent falls. Patient is being placed in observation, await PT and OT evaluation. Patient is agreeable to go to acute rehab, awaiting insurance approval for this. Patient should consider fall risk while she remains in the hospital. Longstanding balance issues rather than just the last few months per prior documentation. Prior [facility] visit in 2018. B12 level WNL (3) Compression fracture of T3 vertebra: Seen on CT scan, suspect this may be injury from previous fall Patient is currently asymptomatic from this. Can be addressed by PT during evaluation. Vitamin D level mildly low, started on supplementation (4) DMII (diabetes mellitus, type 2): Continue Metformin as ordered HbA1C 6.2 Sliding scale insulin Carb controlled diet (5) Hypertension: Blood pressure seems to be controlled Not orthostatic (6) Mixed hyperlipidemia: Continue statin as ordered (7) Schizophrenia: Continue medications including clozapine and Lamictal. If there is consideration that psychiatric medications are causing instability, can consider psychiatry evaluation. Disposition - medically stable for discharge pending placement / insurance authorization Discharge Plan Discharge Items Patient Disposition: Transfer Inpatient Rehab Fac Reason For Visit: [place] Discharge Diagnosis: Right gastrocnemius strain T3 vertebral compression fracture Activity: Resume your previous activity Non-emergency contact: Primary Care Provider Call non-emergency contact if: you have any medication questions and your symptoms worsen Follow-up/Referrals: Deandre Benson III, MD [Primary Care Provider] - Cameron Stoll MD [Physician] - (1 month follow up) Diet: Carb Consistent or DM2 Addtl Attending Provider Instructions: Farrah Stoll is a 60 year old female admitted to [facility] from November 21 - 2020 due to a fall at home. She was diagnosed with a right gastrocnemius strain and T3 compression fracture. No extremity fracture after review of XRs by orthopedics of right ankle/tibia/fibula. Recommend she wear a calf high Solomon stocking. Use high tide walking boot to wear for the next 4 weeks. She does not need to wear this in bed but should wear it for a while ambulating. She can weight-bear as tolerated. Follow-up in orthopedic clinic in a month. Pending Studies at Discharge: No Stand-Alone Forms: My [facility] Skilled Items Patient informed of condition?: Yes DNR: No Discharge Level of Care: Skilled Communicable Disease: No Discharge Prognosis: Stable Lines: None Urinary Catheter: No Medications and DC Order Prescriptions: New cholecalciferol (vitamin D3) 25 mcg (1,000 unit) Capsule 1,000 unit PO QAM Qty: 30 RF: 0 Continued meclizine 25 mg tablet 25 mg PO Q8H PRN (Reason: Dizziness) Qty: 30 RF: 3 aspirin [Enteric Coated Aspirin] 81 mg tablet,delayed release (DR/EC) 81 mg PO QAM Qty: 90 RF: 3 metformin 500 mg tablet extended release 24 hr 1,000 mg PO QAM Qty: 60 RF: 5 rosuvastatin 20 mg tablet 20 mg PO HS Qty: 30 RF: 5 levothyroxine 150 mcg tablet 150 mcg PO DAILYBB Qty: 90 RF: 3 omeprazole 20 mg capsule,delayed release(DR/EC) 40 mg PO QAM Qty: 180 RF: 3 lamotrigine 200 mg Tablet 200 mg PO BID RF: 0 clozapine 100 mg Tablet 300 mg PO HS RF: 0 quetiapine 100 mg Tablet 100 mg PO QAM RF: 0 quetiapine 100 mg Tablet 300 mg PO HS RF: 0 lorazepam 0.5 mg Tablet 0.5 mg PO HS RF: 0 benztropine 1 mg tablet 1 tab PO BID RF: 0 clozapine 50 mg tablet 50 mg PO BID Qty: 14 RF: 0 clozapine 100 mg tablet 100 mg PO QAM Qty: 7 RF: 0 Discharge Orders: Discharge Order (Routine); Ordered 11/25/20 Ordered By: David Monaco/Other Patient Handouts: A1C, High Blood Sugar (Hyperglycemia), Hypoglycemia (Low Blood Sugar), Managing Type 2 Diabetes, Diabetes: Meal Planning, Type 2 Diabetes Admission Data Admit Date/Time: 11/23/20 19:30 Attending Provider: David Henry Admit Provider: Bogdan Carreon Primary Care Provider: Deandre Benson III [facility] ; Bogdan Carreon ; Cameron Stoll Coding Diagnoses Right calf pain M79.661 Fall W19.XXXA Encounter type: initial encounter Compression fracture of T3 vertebra S22.030A DMII (diabetes mellitus, type 2) E11.9 Hypertension I10 Mixed hyperlipidemia E78.2 Schizophrenia F20.9
== END 2020-11-25 18:30 ==
LOC: ED 08:30 → 3W 08:30 → SUATTDRO 12:21 → 3W 17:28

== ENCOUNTER 2022-11-20 21:15 | Observation (INO) ==
[2022-11-20] MEDS ORDERED: ACETAMINOPHEN 500 MG TAB PO STA (21:35)
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
[2022-11-20] MEDS ORDERED: MoRPHine SULFATE 2 MG/ML CARP IV STA (22:39)
[2022-11-20 22:55] LABS: Basophils # (auto) 0.03 K/uL (0-0.2); Basophils % (auto) 0.5 %; Eosinophils # (auto) 0.11 K/uL (0-0.50); Eosinophils % (auto) 1.8 %; Hemoglobin 10.7 g/dl (12.0-16.0); Immature Granulocytes # (auto) 0.05 K/uL (0.01-0.20); Immature Granulocytes % (auto) 0.8 %; Lymphocytes # (auto) 1.19 K/uL (1.2-3.4); Mean Corpuscular Hemoglobin 30.4 pg (25.0-34.0); Mean Corpuscular Hgb Conc 32.4 g/dL (32.0-36.0); Mean Corpuscular Volume 93.8 fL (80.0-100.0); Mean Platelet Volume 9.1 fL (9.4-12.4); Monocytes # (auto) 0.43 K/uL (0.11-0.59); Monocytes % (auto) 6.9 %; Neutrophils # (auto) 4.46 K/uL (1.40-6.50); Platelet Count 269 K/uL (130-400); RDW Coefficient of Variation 14.3 % (11.5-14.5); RDW Standard Deviation 48.7 fL (36.4-46.3); Red Blood Count 3.52 M/uL (4.20-5.40); White Blood Count 6.27 K/ul (4.8-10.8)
--- NOTE | 2022-11-20 23:04 | Ultrasound Report ---
Exam(s): US VENOUS RIGHT LOWER EXTREMITY EXAM: US Duplex Right Lower Extremity Veins CLINICAL HISTORY: Reason for exam: R knee pain. TECHNIQUE: Real-time duplex ultrasound scan of the right lower extremity veins integrating B-mode two-dimensional vascular structure, Doppler spectral analysis, color flow Doppler imaging and compression. COMPARISON: No relevant prior studies available. FINDINGS: Deep veins: Unremarkable. No DVT in the visualized common femoral, femoral, proximal deep femoral or popliteal veins. The veins demonstrate normal color flow, are normally compressible, with normal phasic flow and/or augmentation response. Superficial veins: Unremarkable. No thrombus in the visualized great saphenous vein. Soft tissues: No acute findings. No popliteal cyst. IMPRESSION: Normal right lower extremity duplex venous ultrasound. Electronically signed by: Ethan Winkler MD 11/20/22 23:03 PM
[2022-11-20 23:11] LABS: Alanine Aminotransferase 14 U/L (7-52); Albumin Globulin Ratio 1.8 (0.9-2); Albumin Level 4.2 gm/dl (3.4-5.0); Alkaline Phosphatase 91 U/L (34-104); Anion Gap 7 (3-11); Aspartate Aminotransferase 12 U/L (13-39); BUN Creatinine Ratio 13.3 (10-20); Bilirubin,Total 0.3 mg/dl (0.2-1.0); Blood Urea Nitrogen 12 mg/dl (6-23); Calcium 9.1 mg/dl (8.6-10.3); Carbon Dioxide 27 mmol/L (21-32); Chloride 107 mmol/L (98-107); Est GFR (African American) 79.4 ml/min; Est GFR (Non-African American) 68.5 ml/min; Globulin 2.3 gm/dl (2.5-4.0); Glucose 128 mg/dl (70-99(Fasting)); Sodium 141 mmol/L (136-145); Total Protein 6.5 gm/dl (6.0-8.3)
[2022-11-21] MEDS ORDERED: MoRPHine SULFATE 2 MG/ML CARP IV STA (00:15)
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
[2022-11-21] MEDS ORDERED: GLUCOSE 10 TAB/TUBE PO PRN (02:37)
[2022-11-21] MEDS ORDERED: GLUCAGON FOR INJ 1 MG VIAL SQ PRN (02:37)
[2022-11-21] MEDS ORDERED: DEXTROSE 50% 50 ML SYRINGE IV PRN (02:37)
[2022-11-21] MEDS ORDERED: ONDANSETRON INJ 2 MG/ML 2 ML VIAL IV PRN (02:37)
[2022-11-21] MEDS ORDERED: GLUCOSE 40% GEL 15 GM TUBE PO PRN (02:37)
[2022-11-21] MEDS ORDERED: MECLIZINE HCL 25 MG TAB PO PRN (02:37)
[2022-11-21] MEDS ORDERED: CARBOHYDRATES FOR HYPOGLYCEMIA PO PRN (02:37)
[2022-11-21] MEDS ORDERED: Patient's HEIGHT &/or WEIGHT Needed SCH (03:00)
[2022-11-21] MEDS: KETOROLAC TROMETHAMINE 15 MG/ML VIAL IV PRN ×2 (04:43→11:42)
[2022-11-21] MEDS: ENOXAPARIN INJ 40 MG/0.4 ML SYR SQ SCH ×2 (05:36→17:39)
[2022-11-21] MEDS: LEVOTHYROXINE SODIUM 150 MCG TABLET PO SCH (05:36)
[2022-11-21] MEDS: ACETAMINOPHEN 325 MG TAB PO PRN ×2 (07:44→17:39)
[2022-11-21] MEDS: QUEtiapine FUMARATE 200 MG TAB PO SCH (07:48)
[2022-11-21] MEDS: lamoTRIgine 100 MG TAB PO SCH ×2 (07:48→20:15)
--- NOTE | 2022-11-21 07:48 | Magnetic Resonance Report ---
MR knee RT wo con CLINICAL HISTORY: 62 years-old Female with ground level twist and fall, unable to walk. Acute right knee pain status post twisting injury COMPARISON: Knee radiographs 11/20/2022 TECHNIQUE: Multiplanar, multisequence MRI of the right knee was performed without intravenous contras t. FINDINGS: Study is mildly motion degraded. MENISCI: Mild degeneration of the lateral meniscus without definitive acute tear identified. Complex tearing of the medial meniscus involves the anterior junction, body, posterior horn and junct ion with probable tear extension to the posterior root. Moderate extrusion of the medial meniscus and meniscal gutter. Deep tissue edema is noted without displaced meniscal fragment or parameniscal cyst identified. CRUCIATE LIGAMENTS: The anterior cruciate ligament is intact. Thickening and irregularity of the post erior cruciate ligament mid to distal fibers is noted with high-grade interstitial split tearing. No full-thickness tear or retraction. Moderate edema within the intercondylar notch. COLLATERAL LIGAMENTS: The popliteus tendon, biceps femoris tendon, fibular collateral ligament and il iotibial band are intact. The superficial and deep components of the medial collateral ligament are intact. EXTENSOR MECHANISM: The quadriceps and patellar tendons are intact. The medial and lateral patellar r etinacula are intact. KNEE JOINT: Severe osteoarthritis of the patellofemoral joint with high-grade chondromalacia througho ut the patella and intermediate to high-grade chondromalacia within the trochlea, most pronounced med ially. Moderate-sized joint effusion. Severe osteoarthritis of the medial compartment with high-grade chondromalacia, marginal osteophytic spurring and mild underlying subchondral cystic change and edema which is most pronounced in the medi al tibial plateau. Mild to moderate osteoarthritis of the lateral compartment with areas of low to intermediate grade ch ondromalacia. BONE MARROW: No acute fracture or marrow replacing process. SOFT TISSUES: Moderate subcutaneous edema is most pronounced posterolaterally. Loculated fluid collec tions in the posterior knee are likely related to lobular popliteal cyst with 2 separate components m easuring up to approximately 2.7 cm. IMPRESSION: 1. Tricompartmental osteoarthritis, severe within the medial and patellofemoral compartments. 2. Moderate-sized joint effusion. 3. Grade II sprain of the posterior cruciate ligament with deep tissue edema within the intercondylar notch which may represent acute or subacute etiology. 4. Complex medial meniscal tearing. ACT 112: Negative or not required by law. The above report was generated using voice recognition software. It may contain grammatical, syntax o r spelling errors. Electronically signed by: Lanre Green M.D. 11/21/2022 7:47 AM
[2022-11-21] MEDS: cloZAPine 100 MG TAB PO SCH ×2 (07:49→20:16)
[2022-11-21] MEDS: CHOLECALCIFEROL 1,000 UNITS 25 MCG TAB PO SCH ×2 (07:49→20:16)
[2022-11-21] MEDS: cloZAPine 25 MG TAB PO SCH ×2 (07:49→20:15)
[2022-11-21] MEDS: PANTOprazole 40 MG TAB PO SCH (07:49)
[2022-11-21] MEDS: ASPIRIN 81 MG ECTAB PO SCH (07:49)
[2022-11-21] MEDS ORDERED: MICONAZOLE NITRATE POWDER 85 GM EXT PRN (07:50)
--- NOTE | 2022-11-21 07:54 | XRay Report ---
XR knee RT 3V CLINICAL HISTORY: R knee pain COMPARISON STUDY: None. FINDINGS: No fracture or dislocation within the right knee. There is moderate osteoarthritis at the m edial compartment. No significant right knee effusion. No significant soft tissue swelling. There is moderate osteoarthritis at the patellofemoral joint. IMPRESSION: 1. No fracture or dislocation within the right knee. 2. Moderate osteoarthritis. ACT 112: Negative or not required by law. Electronically signed by: Jermaine Cheek M.D. 11/21/2022 7:52 AM
[2022-11-21 08:16] LABS: Estimated Average Glucose 134 mg/dl; Hemoglobin A1C 6.3 % (4.5-5.6)
[2022-11-21 08:22] LABS: Appearance Urine Cloudy (Clear); Bacteria Urine Automated Negative (Negative); Bilirubin Urine Negative (Negative); Blood Urine Negative (Negative); Cast Urine Automated 0 /lpf (0-5); Color Urine Yellow; Glucose Urine UA Negative (Negative); Ketones Urine Negative (Negative); Leukocyte Esterase Urine Trace (Negative); Nitrite Urine Negative (Negative); Protein Urine Negative (Negative); RBC Urine Automated 0-4 /hpf (0-4); Specific Gravity Urine 1.014 (1.000-1.030); Urobilinogen Urine Negative (Negative); pH Urine 7.5 (4.5-7.5)
[2022-11-21] MEDS ORDERED: POLYETHYLENE (MIRALAX) 17 GM PACK PO SCH (09:00)
[2022-11-21] MEDS: INSULIN ASPART PER UNIT CHARGE SC SCH ×4 (09:02→20:23)
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
--- NOTE | 2022-11-21 19:11 | Hospitalist Progress Note ---
Date of Service November 21, 2022 Assessment & Plan (1) Osteoarthritis of right knee: Plan: mod-severe on MRI s/p arthrocentesis of joint with small amount of effusion removed followed by steroid injection appreciate ortho evaluation ice ordered scheduled toradol 15mg IV q6h x 4 doses JEFF wrap gentle PT/OT (2) PCL sprain: Plan: as seen on MRI right knee 2nd to recent falls ice, NSAIDs, s/p steroid injection of knee by ortho today (3) Tear of medial meniscus of knee joint: Plan: degenerative and/or traumatic tear of right knee s/p arthrocentesis today with steroid injection ice NSAIDs JEFF wrap (4) Frequent falls: Plan: etiology? check B12 and B1 levels check mag level recheck TSH - was abnormal in October consider imaging of lumbar spine and/or brain to check for central/peripheral causes leading to falls rather young to have the amount of falls she is having reports some dizziness with standing but no syncope she was not able to tell me if her knee or knees had been locking leading to gait issues PT, OT rehab post-d/c (5) Anxiety state, unspecified: Plan: cont all home meds (6) Depression: Plan: cont all home meds (7) Hypertension: Plan: despite this dx being on her problem list her BPs here are normal and she is not on anti-hypertensives at home this dx can be removed from problem list (8) Schizophrenia: Plan: cont all home meds (9) Hypothyroidism: Plan: TSH in October 2022 was abnormal repeat TSH am Plan DVT proph - lovenox SC ultimate dispo - [facility] Admission and Anticipated Discharge Date Admission Date: November 21, 2022 Subjective pt was resting in bed during my visit she had arthrocentesis of R knee this am she had brief period of time when pain was better, but now it "hurts again" she was very tearful during the visit she was sad because "someone said I have parkinson's disease" her mother apparently has parkinson's and this person telling her about PD "makes me nervous" Review of Systems Review of Systems: pulm - no dyspnea GI - no abd pain; c/o constipation cv - no chest pain Physical Exam Physical Exam: gen - tearful, otherwise NAD mouth - MMM neck - no JVD heart - RRR, s1 s2, no murmur lungs - CTA b/l abd - soft NT ND BS+ ext - no edema, pulses 2+ b/l musculo - right knee covered in JEFF wrap; I did not remove this neuro - strength 5/5 x 4 exts; finger/nose/finger maneuver slight dysmetria on left, normal on right Results & Data Results & Data Vital Signs (Past 12 Hours) Vital Signs Temp Pulse Resp BP Pulse Ox O2 Del Method 11/21/22 15:20 37.2 C 76 17 113/77 96 Room Air 11/21/22 07:33 36.9 C 81 17 128/81 95 Room Air Laboratory Results Laboratory Results - last 24 hr 11/21/22 11/21/22 11/21/22 07:02 07:37 08:00 POC Glucose 103 H Estimat Average Glucose 134 Hemoglobin A1c 6.3 H Urine Color Yellow Urine Appearance Cloudy A Urine pH 7.5 Ur Specific Kinder 1.014 Urine Protein Negative Urine Glucose (UA) Negative Urine Ketones Negative Urine Blood Negative Urine Nitrite Negative Urine Bilirubin Negative Urine Urobilinogen Negative Ur Leukocyte Esterase Trace H Urine WBC (Auto) 5-10 H Urine RBC (Auto) 0-4 U Hyaline Cast (Auto) 0 U Epithel Cells (Auto) 10-20 H Urine Bacteria (Auto) Negative 11/21/22 11/21/22 11/21/22 11:38 16:41 20:13 POC Glucose 108 H 104 H 163 H Estimat Average Glucose Hemoglobin A1c Urine Color Urine Appearance Urine pH Ur Specific Kinder Urine Protein Urine Glucose (UA) Urine Ketones Urine Blood Urine Nitrite Urine Bilirubin Urine Urobilinogen Ur Leukocyte Esterase Urine WBC (Auto) Urine RBC (Auto) U Hyaline Cast (Auto) U Epithel Cells (Auto) Urine Bacteria (Auto) Diagnostic Findings Knee X-Ray 11/20/22 21:35 XR knee RT 3V CLINICAL HISTORY: R knee pain COMPARISON STUDY: None. FINDINGS: No fracture or dislocation within the right knee. There is moderate osteoarthritis at the medial compartment. No significant right knee effusion. No significant soft tissue swelling. There is moderate osteoarthritis at the patellofemoral joint. IMPRESSION: 1. No fracture or dislocation within the right knee. 2. Moderate osteoarthritis. ACT 112: Negative or not required by law. Electronically signed by: Jermaine Cheek M.D. 11/21/2022 7:52 AM Knee MRI 11/21/22 00:59 MR knee RT wo con CLINICAL HISTORY: 62 years-old Female with ground level twist and fall, unable to walk. Acute right knee pain status post twisting injury COMPARISON: Knee radiographs 11/20/2022 TECHNIQUE: Multiplanar, multisequence MRI of the right knee was performed without intravenous contrast. FINDINGS: Study is mildly motion degraded. MENISCI: Mild degeneration of the lateral meniscus without definitive acute tear identified. Complex tearing of the medial meniscus involves the anterior junction, body, posterior horn and junction with probable tear extension to the posterior root. Moderate extrusion of the medial meniscus and meniscal gutter. Deep tissue edema is noted without displaced meniscal fragment or parameniscal cyst identified. CRUCIATE LIGAMENTS: The anterior cruciate ligament is intact. Thickening and irregularity of the posterior cruciate ligament mid to distal fibers is noted with high-grade interstitial split tearing. No full-thickness tear or retraction . Moderate edema within the intercondylar notch. COLLATERAL LIGAMENTS: The popliteus tendon, biceps femoris tendon, fibular collateral ligament and iliotibial band are intact. The superficial and deep components of the medial collateral ligament are intact. EXTENSOR MECHANISM: The quadriceps and patellar tendons are intact. The medial and lateral patellar retinacula are intact. KNEE JOINT: Severe osteoarthritis of the patellofemoral joint with high-grade chondromalacia throughout the patella and intermediate to high-grade chondromalacia within the trochlea, most pronounced medially. Moderate-sized joint effusion. Severe osteoarthritis of the medial compartment with high-grade chondromalacia, marginal osteophytic spurring and mild underlying subchondral cystic change and edema which is most pronounced in the medial tibial plateau. Mild to moderate osteoarthritis of the lateral compartment with areas of low to intermediate grade chondromalacia. BONE MARROW: No acute fracture or marrow replacing process. SOFT TISSUES: Moderate subcutaneous edema is most pronounced posterolaterally. Loculated fluid collections in the posterior knee are likely related to lobular popliteal cyst with 2 separate components measuring up to approximately 2.7 cm. IMPRESSION: 1. Tricompartmental osteoarthritis, severe within the medial and patellofemoral compartments. 2. Moderate-sized joint effusion. 3. Grade II sprain of the posterior cruciate ligament with deep tissue edema within the intercondylar notch which may represent acute or subacute etiology. 4. Complex medial meniscal tearing. ACT 112: Negative or not required by law. The above report was generated using voice recognition software. It may contain grammatical, syntax or spelling errors. Electronically signed by: Lanre Green M.D. 11/21/2022 7:47 AM PG Care Time/CCT Total # of Minutes Spent Total Time Spent with Patient: Total time spent is greater than 50% in coordination of care (as documented) at patient's floor/unit and/or counseling patient: Coding Level of Care Code 99839 SUB INP/OBS CARE 2/35MIN Diagnoses Osteoarthritis of right knee M17.11 PCL sprain S83.529A Tear of medial meniscus of knee joint S83.249A Frequent falls R29.6 Anxiety state, unspecified F41.1 Depression F32.9 Hypertension I10 Schizophrenia F20.9 Hypothyroidism E03.9
[2022-11-21] MEDS: POLYETHYLENE (MIRALAX) 17 GM PACK PO SCH (20:11)
[2022-11-21] MEDS: GABAPENTIN 300 MG CAP PO SCH (20:14)
[2022-11-21] MEDS: LORazepam 0.5 MG TAB PO SCH (20:14)
[2022-11-21] MEDS: KETOROLAC TROMETHAMINE 15 MG/ML VIAL IV SCH ×2 (20:14→23:07)
[2022-11-21] MEDS: ROSUVASTATIN CALCIUM 20 MG TAB PO SCH (20:14)
[2022-11-21] MEDS: QUEtiapine FUMARATE 300 MG TABLET PO SCH (20:16)
[2022-11-22] MEDS: ACETAMINOPHEN 325 MG TAB PO PRN ×2 (00:21→10:53)
[2022-11-22] MEDS: LEVOTHYROXINE SODIUM 150 MCG TABLET PO SCH (05:54)
[2022-11-22] MEDS: KETOROLAC TROMETHAMINE 15 MG/ML VIAL IV SCH ×3 (05:54→17:37)
[2022-11-22] MEDS: ENOXAPARIN INJ 40 MG/0.4 ML SYR SQ SCH ×2 (05:54→17:37)
[2022-11-22 08:23] LABS: Magnesium 2.1 mg/dl (1.7-2.4)
[2022-11-22] MEDS: ASPIRIN 81 MG ECTAB PO SCH (09:05)
[2022-11-22] MEDS: PANTOprazole 40 MG TAB PO SCH (09:05)
[2022-11-22] MEDS: QUEtiapine FUMARATE 200 MG TAB PO SCH (09:05)
[2022-11-22] MEDS: cloZAPine 25 MG TAB PO SCH ×2 (09:06→21:06)
[2022-11-22] MEDS: cloZAPine 100 MG TAB PO SCH ×2 (09:06→21:06)
[2022-11-22] MEDS: lamoTRIgine 100 MG TAB PO SCH ×2 (09:06→21:07)
[2022-11-22] MEDS: SENNA 8.6 MG TAB PO SCH (09:06)
[2022-11-22] MEDS: CHOLECALCIFEROL 1,000 UNITS 25 MCG TAB PO SCH ×2 (09:06→21:07)
[2022-11-22] MEDS: POLYETHYLENE (MIRALAX) 17 GM PACK PO SCH ×2 (09:07→21:08)
[2022-11-22] MEDS: INSULIN ASPART PER UNIT CHARGE SC SCH ×4 (09:08→22:01)
[2022-11-22] MEDS: THIAMINE HCL 100 MG TAB PO SCH (10:53)
--- NOTE | 2022-11-22 20:28 | Hospitalist Progress Note ---
Date of Service November 22, 2022 Assessment & Plan (1) Osteoarthritis of right knee: Plan: mod-severe on MRI s/p arthrocentesis of joint with small amount of effusion removed followed by steroid injection appreciate ortho evaluation cont ice finish toradol doses today, then change to PO celebrex 100mg BID tomorrow JEFF wrap gentle PT/OT - ordered to determine if rehab is needed (2) PCL sprain: Plan: as seen on MRI right knee 2nd to recent falls ice, NSAIDs, s/p steroid injection of knee by ortho (3) Tear of medial meniscus of knee joint: Plan: degenerative and/or traumatic tear of right knee s/p arthrocentesis with steroid injection ice NSAIDs JEFF wrap (4) Frequent falls: Plan: etiology? B12 wnl B1 pending; while awaiting level place on thiamine 200mg BID mag level wnl adjust thyroid med (see below) consider imaging of lumbar spine and/or brain to check for central/peripheral causes leading to falls rather young to have the amount of falls she is having reports some dizziness with standing but no syncope she was not able to tell me if her knee or knees had been locking leading to gait issues PT, OT rehab post-d/c ?? (5) Anxiety state, unspecified: Plan: cont all home meds (6) Depression: Plan: cont all home meds (7) Hypertension: Plan: despite this dx being on her problem list her BPs here are normal and she is not on anti-hypertensives at home this dx can be removed from problem list (8) Schizophrenia: Plan: cont all home meds (9) Hypothyroidism: Plan: TSH in October 2022 was abnormal repeat TSH today >4 reasonable to increase thyroid replacement to shoot for target TSH of ~2 repeat TSH 6 weeks (10) Iron deficiency anemia: Plan: ferritin low (21) likely cause of her chronic anemia venofer 300mg IV x 1 tomorrow am needs w/u for this as outpatient Plan DVT proph - lovenox [place] ultimate dispo - [facility] ? home with therapy ? Admission and Anticipated Discharge Date Admission Date: November 21, 2022 Subjective no events today R knee feels better with toradol she iced the knee yesterday but not today able to get OOB to chair with nursing assistance pain in R knee was not as bad as previous with the transfer still no bowel movement feels ok otherwise Physical Exam Physical Exam: gen - NAD, not tearful today mouth - MMM neck - no JVD heart - RRR, s1 s2, no murmur lungs - CTA b/l abd - soft NT ND BS+ ext - no edema, pulses 2+ b/l musculo - right knee covered in JEFF wrap; I did not remove this; she has medial joint line tenderness to palpation; passive flexion/extension does not cause pain Results & Data Results & Data Vital Signs (Past 12 Hours) Vital Signs Temp Pulse Resp BP Pulse Ox O2 Del Method 11/22/22 14:37 36.8 C 72 16 131/86 98 Room Air Laboratory Results Laboratory Results - last 24 hr 11/22/22 11/22/22 11/22/22 07:11 07:11 07:11 POC Glucose Magnesium 2.1 Iron 68 TIBC 286 Unsaturated IBC 218 Transferrin % Sat 24 Ferritin 21.0 Vitamin B1 Pending Vitamin B12 412 TSH 11/22/22 11/22/22 11/22/22 07:11 07:43 11:33 POC Glucose 99 139 H Magnesium Iron TIBC Unsaturated IBC Transferrin % Sat Ferritin Vitamin B1 Vitamin B12 TSH 4.441 11/22/22 16:39 POC Glucose 98 Magnesium Iron TIBC Unsaturated IBC Transferrin % Sat Ferritin Vitamin B1 Vitamin B12 TSH PG Care Time/CCT Total # of Minutes Spent Total Time Spent with Patient: Total time spent is greater than 50% in coordination of care (as documented) at patient's floor/unit and/or counseling patient: Coding Level of Care Code 89831 SUB INP/OBS CARE 2/35MIN Diagnoses Osteoarthritis of right knee M17.11 PCL sprain S83.529A Tear of medial meniscus of knee joint S83.249A Frequent falls R29.6 Anxiety state, unspecified F41.1 Depression F32.9 Hypertension I10 Schizophrenia F20.9 Hypothyroidism E03.9 Iron deficiency anemia D50.9
[2022-11-22] MEDS: GABAPENTIN 300 MG CAP PO SCH (21:07)
[2022-11-22] MEDS: LORazepam 0.5 MG TAB PO SCH (21:08)
[2022-11-22] MEDS: QUEtiapine FUMARATE 300 MG TABLET PO SCH (21:08)
[2022-11-22] MEDS: ROSUVASTATIN CALCIUM 20 MG TAB PO SCH (21:09)
[2022-11-23] MEDS: KETOROLAC TROMETHAMINE 15 MG/ML VIAL IV SCH ×2 (00:02→05:28)
[2022-11-23] MEDS: LEVOTHYROXINE SODIUM 175 MCG TABLET PO SCH (05:28)
[2022-11-23] MEDS: ENOXAPARIN INJ 40 MG/0.4 ML SYR SQ SCH ×2 (05:29→17:51)
[2022-11-23] MEDS ORDERED: IRON SUCROSE 300 MG in SODIUM CHLORIDE 0.9% 250 ML IV ONE (08:20)
[2022-11-23] MEDS: POLYETHYLENE (MIRALAX) 17 GM PACK PO SCH ×2 (08:32→20:39)
[2022-11-23] MEDS: PANTOprazole 40 MG TAB PO SCH (08:33)
[2022-11-23] MEDS: SENNA 8.6 MG TAB PO SCH (08:33)
[2022-11-23] MEDS: cloZAPine 100 MG TAB PO SCH ×2 (08:33→20:41)
[2022-11-23] MEDS: THIAMINE HCL 100 MG TAB PO SCH (08:33)
[2022-11-23] MEDS: CHOLECALCIFEROL 1,000 UNITS 25 MCG TAB PO SCH ×2 (08:33→20:43)
[2022-11-23] MEDS: QUEtiapine FUMARATE 200 MG TAB PO SCH (08:33)
[2022-11-23] MEDS: lamoTRIgine 100 MG TAB PO SCH ×2 (08:34→20:42)
[2022-11-23] MEDS: INSULIN ASPART PER UNIT CHARGE SC SCH ×4 (08:36→20:43)
[2022-11-23] MEDS: cloZAPine 25 MG TAB PO SCH ×2 (10:13→20:43)
[2022-11-23] MEDS: CELECOXIB 100 MG CAP PO SCH ×2 (10:13→20:40)
--- NOTE | 2022-11-23 11:20 | Orthopedic Progress Note ---
Date of Service November 23, 2022 Assessment & Plan (1) Osteoarthritis of right knee: Plan: IMPRESSION: Right knee pain secondarily to exacerbation of degenerative changes versus medial meniscus tear versus partial PCL sprain. Goals: Decrease pain. Plan:Patient responding well to aspiration/cortisone injection. Weightbearing as tolerated with walker on right lower extremity with immobilizer for the next day PT/OT Ice with easy wrap Watch for signs or symptoms of infection Pain control with p.o. medication per medicine service Patient states she would like to be discharged to [facility] for rehab. She states she has been there before and did very well. We will have her follow-up in our clinic in 10 to 14 days. Continue care per primary service. Please recall if any ortho issues should arise. Admission and Anticipated Discharge Date Admission Date: November 21, 2022 Subjective This 62-year-old female seen today in follow-up after performing an aspiration and corticosteroid injection for her right knee osteoarthritis. Patient states she is doing much better today. She states that her pain is about 4 out of 10 today compared to 9 out of 10 yesterday. She has no other complaints at this time. Review of Systems Review of Systems: All systems reviewed & are unremarkable except as noted in Subjective Physical Exam Physical Exam: Right knee: Range of motion is from 0 degrees of extension to about 80 degrees of flexion actively. Patient has difficulty performing active straight leg raise test. She is able to actively dorsi and plantarflex her foot without issue. Patient continues to have some slight medial and lateral joint tenderness when the knee is palpated in the flexed position. Her patella is able to be slightly manipulated with palpable crepitation. Her quad strength is 3 of 5. She is neurovascular intact in right lower extremity. Results & Data Vital Signs (Past 12 Hours) Vital Signs Temp Pulse Resp BP Pulse Ox O2 Del Method 11/23/22 07:46 36.7 C 75 18 125/80 94 Room Air
[2022-11-23] MEDS ORDERED: MAGNESIUM HYDROXIDE SUSP 30 ML UDC PO ONE (16:07)
[2022-11-23] MEDS: ACETAMINOPHEN 325 MG TAB PO PRN (19:30)
[2022-11-23] MEDS: LORazepam 0.5 MG TAB PO SCH (20:39)
[2022-11-23] MEDS: QUEtiapine FUMARATE 300 MG TABLET PO SCH (20:41)
[2022-11-23] MEDS: ROSUVASTATIN CALCIUM 20 MG TAB PO SCH (20:42)
[2022-11-23] MEDS: GABAPENTIN 300 MG CAP PO SCH (20:43)
--- NOTE | 2022-11-23 20:50 | Hospitalist Progress Note ---
Date of Service November 23, 2022 Assessment & Plan (1) Osteoarthritis of right knee: Plan: mod-severe on MRI s/p arthrocentesis of joint with small amount of effusion removed by ortho hospital day #1 followed by steroid injection appreciate ortho evaluation pain improving cont ice start celebrex 100mg BID JEFF wrap ortho f/u 2 weeks post-d/c (2) PCL sprain: Plan: as seen on MRI right knee 2nd to recent falls ice, NSAIDs, s/p steroid injection of knee by ortho (3) Tear of medial meniscus of knee joint: Plan: degenerative and/or traumatic tear of right knee s/p arthrocentesis with steroid injection ice NSAIDs JEFF wrap (4) Frequent falls: Plan: etiology? B12 wnl B1 pending; while awaiting level placed on thiamine 200mg BID mag level wnl adjusted thyroid med (see below) consider imaging of lumbar spine and/or brain to check for central/peripheral causes leading to falls rather young to have the amount of falls she is having reports some dizziness with standing but no syncope she was not able to tell me if her knee or knees had been locking leading to gait issues she does have neuropathy of feet - reports numbness of both feet chronically this could lead to falls cont PT, OT rehab post-d/c (5) Anxiety state, unspecified: Plan: cont all home meds (6) Depression: Plan: cont all home meds (7) Hypertension: Plan: despite this dx being on her problem list her BPs here are normal/excellent and she is not on anti-hypertensives at home this dx can be removed from problem list (8) Schizophrenia: Plan: cont all home meds (9) Hypothyroidism: Plan: TSH in October 2022 was abnormal repeat TSH today >4 reasonable to increase thyroid replacement to shoot for target TSH of ~2 to that end increased from 150mcg daily to 175mcg daily repeat TSH 6 weeks (10) Iron deficiency anemia: Plan: ferritin low (21) likely cause of her chronic anemia venofer 300mg IV x 1 today repeat again tomorrow needs w/u for this as outpatient (GI - EGD, colonoscopy, etc) (11) 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: Plan: a1c 6.3% excellent control minimal insulin needed here cont ac/hs bsgs DM diet Plan DVT proph - lovenox [place] ultimate dispo - [facility] if insurance approves auth pending per social work Admission and Anticipated Discharge Date Admission Date: November 23, 2022 Subjective right knee still hurts but pain improved in comparison to admission able to get into the chair today and did walk in hallway with PT had very large BM this afternoon eating ok still interested in rehab post-d/c tolerated IV Fe w/o reaction Review of Systems Review of Systems: cv - no chest pain or orthopnea pulm - no ARRIETA GI - no abd pain/nausea/emesis Physical Exam Physical Exam: gen - NAD, sitting in chair, looks good mouth - MMM neck - no JVD heart - RRR, s1 s2, no murmur lungs - CTA b/l abd - soft NT ND BS+ ext - no edema, pulses 2+ b/l musculo - right knee has immobilizer in place during the visit; I did not remove such today Results & Data Results & Data Vital Signs (Past 12 Hours) Vital Signs Temp Pulse Resp BP Pulse Ox O2 Del Method 11/23/22 20:33 36.7 C 77 18 124/83 98 Room Air 11/23/22 14:27 37.0 C 75 18 117/83 91 Room Air Laboratory Results Laboratory Results - last 24 hr 11/23/22 11/23/22 11/23/22 07:38 07:58 11:32 POC Glucose 122 H 115 H Magnesium 2.1 11/23/22 11/23/22 16:58 20:13 POC Glucose 93 141 H Magnesium PG Care Time/CCT Total # of Minutes Spent Total Time Spent with Patient: Total time spent is greater than 50% in coordination of care (as documented) at patient's floor/unit and/or counseling patient: Coding Level of Care Code 61062 SUB INP/OBS CARE 2/35MIN Diagnoses Osteoarthritis of right knee M17.11 PCL sprain S83.529A Tear of medial meniscus of knee joint S83.249A Frequent falls R29.6 Anxiety state, unspecified F41.1 Depression F32.9 Hypertension I10 Schizophrenia F20.9 Hypothyroidism E03.9 Iron deficiency anemia D50.9 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 E11.319
[2022-11-24] MEDS: LEVOTHYROXINE SODIUM 175 MCG TABLET PO SCH (06:36)
[2022-11-24] MEDS: QUEtiapine FUMARATE 200 MG TAB PO SCH (08:16)
[2022-11-24] MEDS: CELECOXIB 100 MG CAP PO SCH ×2 (08:16→20:40)
[2022-11-24] MEDS: CHOLECALCIFEROL 1,000 UNITS 25 MCG TAB PO SCH ×2 (08:16→20:41)
[2022-11-24] MEDS: cloZAPine 100 MG TAB PO SCH ×2 (08:16→20:56)
[2022-11-24] MEDS: THIAMINE HCL 100 MG TAB PO SCH (08:16)
[2022-11-24] MEDS: SENNA 8.6 MG TAB PO SCH (08:16)
[2022-11-24] MEDS: lamoTRIgine 100 MG TAB PO SCH ×2 (08:16→20:41)
[2022-11-24] MEDS: PANTOprazole 40 MG TAB PO SCH (08:16)
[2022-11-24] MEDS: cloZAPine 25 MG TAB PO SCH ×2 (08:16→20:40)
[2022-11-24] MEDS: POLYETHYLENE (MIRALAX) 17 GM PACK PO SCH ×2 (08:16→20:41)
[2022-11-24] MEDS: ENOXAPARIN INJ 40 MG/0.4 ML SYR SQ SCH ×2 (08:16→17:33)
[2022-11-24] MEDS: INSULIN ASPART PER UNIT CHARGE SC SCH ×4 (09:31→20:42)
[2022-11-24] MEDS: ACETAMINOPHEN 325 MG TAB PO PRN ×2 (09:45→17:35)
[2022-11-24] MEDS ORDERED: IRON SUCROSE 300 MG in SODIUM CHLORIDE 0.9% 250 ML IV ONE (12:15)
--- NOTE | 2022-11-24 20:09 | Hospitalist Progress Note ---
Date of Service November 24, 2022 Assessment & Plan (1) Osteoarthritis of right knee: Plan: mod-severe on MRI s/p arthrocentesis of joint with small amount of effusion removed by ortho hospital day #1 followed by steroid injection appreciate ortho evaluation pain stable counseled her about natural course of her knee injury, OA, etc cont ice cont celebrex 100mg BID cont JFEF wrap activity as tolerated ortho f/u 2 weeks post-d/c (2) PCL sprain: Plan: as seen on MRI right knee 2nd to recent falls ice, NSAIDs, s/p steroid injection of knee by ortho (3) Tear of medial meniscus of knee joint: Plan: degenerative and/or traumatic tear of right knee s/p arthrocentesis with steroid injection ice NSAIDs JEFF wrap (4) Frequent falls: Plan: etiology? B12 wnl B1 pending; while awaiting level placed on thiamine 200mg BID mag level wnl adjusted thyroid med (see below) consider imaging of lumbar spine and/or brain to check for central/peripheral causes leading to falls rather young to have the amount of falls she is having reports some dizziness with standing but no syncope she was not able to tell me if her knee or knees had been locking leading to gait issues she does have neuropathy of feet - reports numbness of both feet chronically this could lead to falls cont PT, OT rehab post-d/c (5) Anxiety state, unspecified: Plan: cont all home meds (6) Depression: Plan: cont all home meds (7) Hypertension: Plan: despite this dx being on her problem list her BPs here are normal/excellent and she is not on anti-hypertensives at home this dx can be removed from problem list (8) Schizophrenia: Plan: cont all home meds (9) Hypothyroidism: Plan: TSH in October 2022 was abnormal repeat TSH today >4 reasonable to increase thyroid replacement to shoot for target TSH of ~2 to that end increased from 150mcg daily to 175mcg daily repeat TSH 6 weeks (10) Iron deficiency anemia: Plan: ferritin low (21) likely cause of her chronic anemia venofer 300mg IV x 1 yesterday will repeat same dose again today needs w/u for this as outpatient (GI - EGD, colonoscopy, etc) (11) 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: Plan: a1c 6.3% excellent control minimal insulin needed here cont ac/hs bsgs DM diet if stable overnight stop insulin and stop bsg checks Plan DVT proph - lovenox [place] [facility]po - [facility] if insurance approves auth pending per social work will check with SW in am about auth Admission and Anticipated Discharge Date Admission Date: November 23, 2022 Subjective sitting in chair during the visit eating well ongoing right knee pain but no worse than previous did do some walking today has not iced the right knee since last pm Review of Systems Review of Systems: psych - lonely, depressed, no visitors pulm - no dyspnea or ARRIETA GI - no constipation or N/V Physical Exam Physical Exam: gen - NAD, sitting in chair mouth - MMM neck - no JVD heart - RRR, s1 s2, no murmur lungs - CTA b/l abd - soft NT ND BS+ ext - no edema, pulses 2+ b/l musculo - right knee - immobilizer in place Results & Data Results & Data Vital Signs (Past 12 Hours) Vital Signs Temp Pulse Resp BP Pulse Ox O2 Del Method 11/24/22 15:36 36.2 C L 74 16 114/67 96 Room Air Laboratory Results Laboratory Results - last 24 hr 11/23/22 11/24/22 11/24/22 20:13 07:50 11:41 POC Glucose 141 H 99 97 11/24/22 16:44 POC Glucose 95 PG Care Time/CCT Total # of Minutes Spent Total Time Spent with Patient: Total time spent is greater than 50% in coordination of care (as documented) at patient's floor/unit and/or counseling patient: Coding Level of Care Code 61690 SUB INP/OBS CARE 125MIN Diagnoses Osteoarthritis of right knee M17.11 PCL sprain S83.529A Tear of medial meniscus of knee joint S83.249A Frequent falls R29.6 Anxiety state, unspecified F41.1 Depression F32.9 Hypertension I10 Schizophrenia F20.9 Hypothyroidism E03.9 Iron deficiency anemia D50.9 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 E11.319
[2022-11-24] MEDS: ROSUVASTATIN CALCIUM 20 MG TAB PO SCH (20:39)
[2022-11-24] MEDS: GABAPENTIN 300 MG CAP PO SCH (20:41)
[2022-11-24] MEDS: QUEtiapine FUMARATE 300 MG TABLET PO SCH (20:41)
[2022-11-24] MEDS: LORazepam 0.5 MG TAB PO SCH (20:47)
[2022-11-25] MEDS: LEVOTHYROXINE SODIUM 175 MCG TABLET PO SCH (06:03)
[2022-11-25] MEDS: ENOXAPARIN INJ 40 MG/0.4 ML SYR SQ SCH ×2 (06:03→16:39)
[2022-11-25] MEDS: PANTOprazole 40 MG TAB PO SCH (08:03)
[2022-11-25] MEDS: CELECOXIB 100 MG CAP PO SCH ×2 (08:03→20:18)
[2022-11-25] MEDS: cloZAPine 100 MG TAB PO SCH ×2 (08:03→20:18)
[2022-11-25] MEDS: SENNA 8.6 MG TAB PO SCH (08:04)
[2022-11-25] MEDS: THIAMINE HCL 100 MG TAB PO SCH (08:04)
[2022-11-25] MEDS: QUEtiapine FUMARATE 200 MG TAB PO SCH (08:05)
[2022-11-25] MEDS: CHOLECALCIFEROL 1,000 UNITS 25 MCG TAB PO SCH ×2 (08:05→20:20)
[2022-11-25] MEDS: lamoTRIgine 100 MG TAB PO SCH ×2 (08:05→20:19)
[2022-11-25] MEDS: POLYETHYLENE (MIRALAX) 17 GM PACK PO SCH ×2 (08:05→20:17)
[2022-11-25] MEDS: cloZAPine 25 MG TAB PO SCH ×2 (08:06→20:19)
[2022-11-25] MEDS: INSULIN ASPART PER UNIT CHARGE SC SCH (08:47)
[2022-11-25] MEDS: ACETAMINOPHEN 325 MG TAB PO PRN ×2 (08:50→20:17)
[2022-11-25] MEDS: GABAPENTIN 300 MG CAP PO SCH (20:17)
[2022-11-25] MEDS: LORazepam 0.5 MG TAB PO SCH (20:17)
[2022-11-25] MEDS: QUEtiapine FUMARATE 300 MG TABLET PO SCH (20:18)
[2022-11-25] MEDS: ROSUVASTATIN CALCIUM 20 MG TAB PO SCH (20:19)
--- NOTE | 2022-11-25 21:16 | Hospitalist Progress Note ---
Date of Service November 25, 2022 Assessment & Plan (1) Osteoarthritis of right knee: Plan: mod-severe on MRI s/p arthrocentesis of joint with small amount of effusion removed by ortho hospital day #1 followed by steroid injection appreciate ortho evaluation pain stable she is progressing and tolerating weight-bearing counseled her about natural course of her knee injury, OA, etc cont ice cont celebrex 100mg BID cont JEFF wrap activity as tolerated ortho f/u 2 weeks post-d/c (2) PCL sprain: Plan: progressing/improving as seen on MRI right knee 2nd to recent falls ice, NSAIDs, s/p steroid injection of knee by ortho (3) Tear of medial meniscus of knee joint: Plan: degenerative and/or traumatic tear of right knee s/p arthrocentesis with steroid injection ice NSAIDs JEFF wrap (4) Frequent falls: Plan: etiology? B12 wnl B1 pending; while awaiting level placed on thiamine 200mg BID mag level wnl adjusted thyroid med (see below) she does have neuropathy of feet - reports numbness of both feet chronically this could lead to falls given the nocturnal enuresis & falls will obtain MRI lspine - r/o cord issues, tethering, etc cont PT, OT rehab post-d/c (5) Anxiety state, unspecified: Plan: cont all home meds (6) Depression: Plan: cont all home meds (7) Hypertension: Plan: despite this dx being on her problem list her BPs here are normal/excellent and she is not on anti-hypertensives at home this dx can be removed from problem list (8) Schizophrenia: Plan: cont all home meds (9) Hypothyroidism: Plan: TSH in October 2022 was abnormal repeat TSH today >4 reasonable to increase thyroid replacement to shoot for target TSH of ~2 to that end increased from 150mcg daily to 175mcg daily repeat TSH 6 weeks (10) Iron deficiency anemia: Plan: ferritin low (21) likely cause of her chronic anemia s/p venofer 300mg IV x 2 doses while here needs w/u for this as outpatient (GI - EGD, colonoscopy, etc) (11) 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: Plan: a1c 6.3% excellent control minimal insulin needed here cont ac/hs bsgs DM diet controlled thus stop insulin and stop bsg checks (12) Enuresis, nocturnal only: Plan: lumbar spine cord issue leading to neurogenic bladder? detrusor instability in the middle of the night? other? check a PVR to ensure she is emptying MRI l-spine if this was NPH the incontinence would be both day/night thus defer on MRI brain recheck a urine cx Plan DVT proph - lovenox [place] [facility]po - [facility] if insurance approves auth pending per social work Admission and Anticipated Discharge Date Admission Date: November 23, 2022 Subjective overall feeling good just lonely and bored - has had no visitors right knee pain is fair today did ice the knee twice thru the day she states she has been bed-wetting/incontinent during the night-time for 6+ months this coincides with her falls getting worse states she wakes up drenched in urine in the middle of the night at home has happened here in the hospital, too embarrassed by this states she voids fine during the daytime Review of Systems Review of Systems: gen - no fevers Physical Exam Physical Exam: gen - NAD, laying in bed comfortably mouth - MMM neck - no JVD heart - RRR, s1 s2, no murmur lungs - CTA b/l abd - soft NT ND BS+ ext - no edema, pulses 2+ b/l musculo - right knee - immobilizer & JEFF wrap removed - minimal effusion of the knee, mild bruising noted, mildly tender over the joint lines; passive ROM was tolerated today neuro - ankle jerks 0; patellar jerks 2+ b/l; flexion of b/l hips 5/5 Results & Data Results & Data Vital Signs (Past 12 Hours) Vital Signs Temp Pulse Resp BP Pulse Ox O2 Del Method 11/25/22 20:13 37 C 74 18 114/70 98 Room Air 11/25/22 14:21 36.8 C 76 16 132/88 95 Room Air Laboratory Results Laboratory Results - last 24 hr 11/25/22 11/25/22 07:43 20:33 POC Glucose 94 117 H PG Care Time/CCT Total # of Minutes Spent Total Time Spent with Patient: Total time spent is greater than 50% in coordination of care (as documented) at patient's floor/unit and/or counseling patient: Coding Level of Care Code 77249 SUB INP/OBS CARE 2/35MIN Diagnoses Osteoarthritis of right knee M17.11 PCL sprain S83.529A Tear of medial meniscus of knee joint S83.249A Frequent falls R29.6 Anxiety state, unspecified F41.1 Depression F32.9 Hypertension I10 Schizophrenia F20.9 Hypothyroidism E03.9 Iron deficiency anemia D50.9 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 E11.319 Enuresis, nocturnal only N39.44
--- NOTE | 2022-11-26 01:04 | Magnetic Resonance Report ---
Exam(s): MRI L SPINE Without Contrast EXAM: MR Lumbar Spine Without Intravenous Contrast CLINICAL HISTORY: Neurogenic bladder and lower extremity numbness. TECHNIQUE: Magnetic resonance images of the lumbar spine without intravenous contrast in multiple planes. COMPARISON: CT lumbar spine 08/09/2020. FINDINGS: Vertebrae: Mild degenerative endplate changes are noted. No acute fracture. There is desiccation of the L3-L4 intervertebral disc. Spinal cord: Unremarkable. Normal signal. Soft tissues: Unremarkable. DISCS/SPINAL CANAL/NEURAL FORAMINA: L1-L2: Mild asymmetric disc bulge and facet hypertrophy results in no significant stenosis. L2-L3: Mild symmetric disc bulge and facet hypertrophy results in no significant stenosis. L3-L4: Moderate asymmetric to the right disc bulge and facet hypertrophy results in moderate right and mild left neural foraminal stenosis. There is mild spinal canal stenosis. Small annular tear of L3- L4. L4-L5: Mild symmetric disc bulge and facet hypertrophy results in mild bilateral neural foraminal stenosis. There is minimal spinal canal stenosis. L5-S1: Mild asymmetric to the right disc bulge and facet hypertrophy results in mild right neural foraminal stenosis. IMPRESSION: 1. Small annular tear of L3-L4. 2. Mild degenerative changes of the spine are detailed above. Electronically signed by: Peggy Christopher MD 11/26/22 01:03 AM
[2022-11-26] MEDS: ENOXAPARIN INJ 40 MG/0.4 ML SYR SQ SCH ×2 (05:45→18:17)
[2022-11-26] MEDS: LEVOTHYROXINE SODIUM 175 MCG TABLET PO SCH (05:45)
[2022-11-26] MEDS: ACETAMINOPHEN 325 MG TAB PO PRN ×2 (05:46→18:17)
[2022-11-26] MEDS: CHOLECALCIFEROL 1,000 UNITS 25 MCG TAB PO SCH ×2 (08:04→20:40)
[2022-11-26] MEDS: THIAMINE HCL 100 MG TAB PO SCH (08:04)
[2022-11-26] MEDS: PANTOprazole 40 MG TAB PO SCH (08:04)
[2022-11-26] MEDS: cloZAPine 25 MG TAB PO SCH ×2 (08:04→20:40)
[2022-11-26] MEDS: QUEtiapine FUMARATE 200 MG TAB PO SCH (08:05)
[2022-11-26] MEDS: SENNA 8.6 MG TAB PO SCH (08:05)
[2022-11-26] MEDS: lamoTRIgine 100 MG TAB PO SCH ×2 (08:05→20:38)
[2022-11-26] MEDS: CELECOXIB 100 MG CAP PO SCH ×2 (08:05→20:40)
[2022-11-26] MEDS: POLYETHYLENE (MIRALAX) 17 GM PACK PO SCH ×2 (08:06→20:39)
[2022-11-26] MEDS: cloZAPine 100 MG TAB PO SCH ×2 (08:06→20:38)
[2022-11-26] MEDS: LORazepam 0.5 MG TAB PO SCH (20:37)
[2022-11-26] MEDS: QUEtiapine FUMARATE 300 MG TABLET PO SCH (20:39)
[2022-11-26] MEDS: ROSUVASTATIN CALCIUM 20 MG TAB PO SCH (20:39)
[2022-11-26] MEDS: GABAPENTIN 300 MG CAP PO SCH (20:40)
--- NOTE | 2022-11-26 21:57 | Hospitalist Progress Note ---
Date of Service November 26, 2022 Assessment & Plan (1) Osteoarthritis of right knee: Plan: mod-severe on MRI s/p arthrocentesis of joint with small amount of effusion removed by ortho hospital day #1 along with steroid injection appreciate ortho evaluation pain stable she is progressing and tolerating weight-bearing cont ice a few times daily cont celebrex 100mg BID cont JEFF wrap activity as tolerated ortho f/u 1-2 weeks post-d/c to discuss ongoing treatment options (2) PCL sprain: Plan: progressing/improving as seen on MRI right knee 2nd to recent falls ice, NSAIDs, s/p steroid injection of knee by ortho (3) Tear of medial meniscus of knee joint: Plan: degenerative and/or traumatic tear of right knee s/p arthrocentesis with steroid injection ice NSAIDs JEFF wrap (4) Frequent falls: Plan: etiology? B12 wnl B1 pending; while awaiting level placed on thiamine 200mg BID but can d/c if level returns normal mag level wnl adjusted thyroid med (see below) she does have neuropathy of feet - reports numbness of both feet chronically this could lead to falls given the nocturnal enuresis & falls obtained MRI l-spine - nothing on MRI that would cause falls or incontinence of urine cont PT, OT rehab post-d/c (5) Anxiety state, unspecified: Plan: cont all home meds (6) Depression: Plan: cont all home meds consult behavioral health liaison for supportive therapy, counseling, etc (7) Hypertension: Plan: despite this dx being on her problem list her BPs here are normal/excellent and she is not on anti-hypertensives at home this dx can be removed from problem list (8) Schizophrenia: Plan: cont all home meds (9) Hypothyroidism: Plan: TSH in October 2022 was abnormal repeat TSH today >4 reasonable to increase thyroid replacement to shoot for target TSH of ~2 to that end increased from 150mcg daily to 175mcg daily repeat TSH 6 weeks (10) Iron deficiency anemia: Plan: ferritin low (21) likely cause of her chronic anemia s/p venofer 300mg IV x 2 doses while here needs w/u for this as outpatient (GI - EGD, colonoscopy, etc) (11) 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: Plan: a1c 6.3% excellent control minimal insulin needed here cont ac/hs bsgs DM diet controlled -- thus stop insulin and stop bsg checks (12) Enuresis, nocturnal only: Plan: MRI l-spine without cord lesion to explain symptoms no evidence of UTI we did a timed, double void last pm this helped as she did not have enuresis last night further, PVR last night was 0 cc etiology?? Plan DVT proph - lovenox SC [facility] denied by insurance thus - SNF for rehab ? Admission and Anticipated Discharge Date Admission Date: November 23, 2022 Subjective patient states she did not have enuresis last night she did a double, timed void last night - voided about 30 min prior to bed (PVR was 0 cc) then voided 1 more time right at bedtime she was very tearful today crying uncontrollably apparently her insurance denied [facility] and social work asked about 2nd option at a SNF she heard long term and she said "I don't want to live in a long term" I explained that going to SNF was temporary/short-term and that following rehab the hope is for her to go home she voiced understanding of such right knee continues to hurt some is ambulating however using ice on knee I asked if she wanted to speak with behavioral health liaison - said yes did deny suicidal ideation most of her sadness is situational - states prior to admission spirits were pretty good Review of Systems Review of Systems: GI - no nausea or emesis; no diarrhea cv - no chest pain pulm - no dyspnea Physical Exam Physical Exam: gen - NAD, laying in bed comfortably, very tearful today mouth - MMM neck - no JVD heart - RRR, s1 s2, no murmur lungs - CTA b/l abd - soft NT ND BS+ ext - no edema, pulses 2+ b/l musculo - right knee - minimal effusion of the knee, mild bruising noted, no significant tenderness with passive flexion/extension Results & Data Results & Data Vital Signs (Past 12 Hours) Vital Signs Temp Pulse Resp BP Pulse Ox O2 Del Method 11/26/22 15:20 36.5 C 73 18 113/80 98 Room Air PG Care Time/CCT Total # of Minutes Spent Total Time Spent with Patient: Total time spent is greater than 50% in coordination of care (as documented) at patient's floor/unit and/or counseling patient: Coding Level of Care Code 45551 SUB INP/OBS CARE 2/35MIN Diagnoses Osteoarthritis of right knee M17.11 PCL sprain S83.529A Tear of medial meniscus of knee joint S83.249A Frequent falls R29.6 Anxiety state, unspecified F41.1 Depression F32.9 Hypertension I10 Schizophrenia F20.9 Hypothyroidism E03.9 Iron deficiency anemia D50.9 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 E11.319 Enuresis, nocturnal only N39.44
[2022-11-27] MEDS: ACETAMINOPHEN 325 MG TAB PO PRN ×2 (04:56→10:12)
[2022-11-27] MEDS: LEVOTHYROXINE SODIUM 175 MCG TABLET PO SCH (04:58)
[2022-11-27] MEDS: ENOXAPARIN INJ 40 MG/0.4 ML SYR SQ SCH (05:00)
[2022-11-27] MEDS ORDERED: POLYETHYLENE (MIRALAX) 17 GM PACK PO PRN (08:27)
[2022-11-27] MEDS: CELECOXIB 100 MG CAP PO SCH (08:27)
[2022-11-27] MEDS: lamoTRIgine 100 MG TAB PO SCH (08:27)
[2022-11-27] MEDS: cloZAPine 100 MG TAB PO SCH (08:28)
[2022-11-27] MEDS: CHOLECALCIFEROL 1,000 UNITS 25 MCG TAB PO SCH (08:28)
[2022-11-27] MEDS: cloZAPine 25 MG TAB PO SCH (08:28)
[2022-11-27] MEDS: THIAMINE HCL 100 MG TAB PO SCH (08:28)
[2022-11-27] MEDS: QUEtiapine FUMARATE 200 MG TAB PO SCH (08:29)
[2022-11-27] MEDS: PANTOprazole 40 MG TAB PO SCH (08:29)
[2022-11-27] MEDS: SENNA 8.6 MG TAB PO SCH (08:31)
[2022-11-27 08:36] LABS: Basophils # (auto) 0.04 K/uL (0-0.2); Basophils % (auto) 0.7 %; Eosinophils % (auto) 1.6 %; Hematocrit (blood only) 33.7 % (37.0-47.0); Hemoglobin 11.1 g/dl (12.0-16.0); Immature Granulocytes # (auto) 0.04 K/uL (0.01-0.20); Immature Granulocytes % (auto) 0.7 %; Lymphocytes # (auto) 1.06 K/uL (1.2-3.4); Lymphocytes % (auto) 17.4 %; Mean Corpuscular Hemoglobin 30.2 pg (25.0-34.0); Mean Corpuscular Hgb Conc 32.9 g/dL (32.0-36.0); Mean Corpuscular Volume 91.8 fL (80.0-100.0); Mean Platelet Volume 9.2 fL (9.4-12.4); Monocytes # (auto) 0.46 K/uL (0.11-0.59); Monocytes % (auto) 7.5 %; Neutrophils % (auto) 72.1 %; Platelet Count 223 K/uL (130-400); Red Blood Count 3.67 M/uL (4.20-5.40)
--- NOTE | 2022-11-27 13:00 | Discharge Summary ---
Date of Service November 27, 2022 Admission HPI Per Admitting Provider The patient is a 62-year-old female with a past medical history including drug- induced parkinsonism, sialorrhea, vitamin D deficiency, peripheral neuropathy, anxiety, bilateral lumbar radiculopathy, depression, frequent falls, gait instability, hypertension, schizophrenia, diabetes mellitus type 2 with retinopathy, hypothyroidism, hyperlipidemia, anemia, and esophageal spasm. Patient reports that she had had 4 falls in the past 2 months, with the third 1, 1 month ago, where she injured her right knee slightly, but had more significant pain develop after most recent fall 1 week ago. With the worsening of pain, and decreased ability to ambulate, and fear of falling again, patient presented to the ED this evening for evaluation. She reports that she had seen her PCP recently, and was started on gabapentin for peripheral neuropathy. Admission Exam Per Admitting Provider The patient is awake, alert and oriented 3, well developed and well nourished, normocephalic and atraumatic, lying in bed and in no acute distress. HEENT--PERRL, EOMI, mucous membranes and oropharynx normal Neck--supple. No JVD. No bruits. Thyroid normal, trachea midline, no adenopathy. Heart--normal S1 and S2. No murmurs, rubs or gallops. Lungs--clear bilaterally, no respiratory distress, no accessory muscle use. Abdomen--normal bowel sounds and soft. Nontender. Nondistended. Obese Extremities-- No edema. Dermatologic--normal skin turgor, normal color, no abnormal lymph nodes, no rash. Neurologic--cranial nerves II through XII grossly intact. Rheumatologic--exam limited by body habitus Psychiatric--normal affect. Principal Diagnosis Right knee osteoarthritis PCL sprain Tear of medial meniscus of right knee joint Discharge Exam General: Awake, conversant Heart: S1, S2/regular rate and rhythm, no murmur rubs or gallops Lungs: Clear to auscultation bilaterally. Normal effort Abdomen: Soft/nontender/nondistended. No hepatosplenomegaly Extremities: No clubbing/cyanosis. No edema Behavior: Appropriate, cooperative Discharge Data Allergies Allergy/AdvReac Type Severity Reaction Status Date / Time escitalopram Allergy Unknown MANIC Verified 10/29/22 00:39 haloperidol Allergy Unknown unknown Verified 10/29/22 00:39 lithium Allergy Unknown . Verified 07/24/22 13:15 Penicillins AdvReac Unknown GI UPSET Verified 10/29/22 00:39 valproic acid AdvReac Unknown leg Verified 10/29/22 00:39 swelling Consultations 11/21/22 00:28 ED Decision to Admit Stat 11/21/22 01:19 Consult Orthopedic Surgery Routine 11/26/22 19:27 Consult Behavioral Health Liaison Routine Ordered Studies 11/20/22 21:35 US venous doppler LE RT Stat 11/21/22 00:59 MRI Knee [MR knee RT wo con] Urgent 11/25/22 21:15 MR lumbar spine wo con Routine Hospital Course (1) Osteoarthritis of right knee: mod-severe on MRI s/p arthrocentesis of joint with small amount of effusion removed by ortho hospital day #1 along with steroid injection appreciate ortho evaluation pain stable she is progressing and tolerating weight-bearing cont ice a few times daily cont JEFF wrap activity as tolerated ortho f/u 1-2 weeks post-d/c to discuss ongoing treatment options (2) PCL sprain: progressing/improving as seen on MRI right knee 2nd to recent falls ice, s/p steroid injection of knee by ortho NSAIDs discontinued upon discharge due to anemia (3) Tear of medial meniscus of knee joint: degenerative and/or traumatic tear of right knee s/p arthrocentesis with steroid injection ice NSAIDs JEFF wrap (4) Frequent falls: etiology? B12 wnl B1 WNL mag level wnl adjusted thyroid med (see below) she does have neuropathy of feet - reports numbness of both feet chronically this could lead to falls given the nocturnal enuresis & falls obtained MRI l-spine - nothing on MRI that would cause falls or incontinence of urine cont PT, OT rehab post-d/c (5) Anxiety state, unspecified: cont all home meds (6) Depression: cont all home meds consult behavioral health liaison for supportive therapy, counseling, etc (7) Hypertension: despite this dx being on her problem list her BPs here are normal/excellent and she is not on anti-hypertensives at home this dx can be removed from problem list (8) Schizophrenia: cont all home meds (9) Hypothyroidism: TSH in October 2022 was abnormal repeat TSH today >4 reasonable to increase thyroid replacement to shoot for target TSH of ~2 to that end increased from 150mcg daily to 175mcg daily repeat TSH 6 weeks (10) Iron deficiency anemia: ferritin low (21) likely cause of her chronic anemia s/p venofer 300mg IV x 2 doses while here needs w/u for this as outpatient (GI - EGD, colonoscopy, etc) (11) 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: a1c 6.3% excellent control minimal insulin needed here cont ac/hs bsgs DM diet controlled -- thus stop insulin and stop bsg checks (12) Enuresis, nocturnal only: MRI l-spine without cord lesion to explain symptoms no evidence of UTI we did a timed, double void this helped as she did not have enuresis last night further, PVR last night was 0 cc etiology?? Plan DVT proph - lovenox SC Total Time Total Time Spent Total Time Spent (In Minutes): 35 Discharge Plan Discharge Items Patient Disposition: Transfer Inpatient Rehab Fac Reason For Visit: RIGHT KNEE PAIN POST FALL, UNBLE TO WALK Discharge Diagnosis: Osteoarthritis of the right knee, medial meniscus tear, PCL sprain Condition on Discharge: Good Activity: As commented below Activity Comment: Per PT/OT recommendations Non-emergency contact: Primary Care Provider Call non-emergency contact if: you have any medication questions and your symptoms worsen Follow-up/Referrals: Vandana Montgomery MD [Primary Care Provider] - Diet: Heart Healthy Addkeith Attending Provider Instructions: Advised to be seen by PCP at group home in 3 days Addtl Embedded Processor Provider Instructions: Patient will f/u at [facility] 10-14 days after hospital discharge Knee immobilizer use when ambulatory. Should come out to work on ROM multiple times per day. Pending Studies at Discharge: No Stand-Alone Forms: My [facility] Skilled Items Patient informed of condition?: Yes DNR: No Discharge Level of Care: Skilled Communicable Disease: No Discharge Prognosis: Stable Lines: None Urinary Catheter: No Medications and DC Order Prescriptions: Continued levothyroxine 150 mcg tablet 150 mcg PO DAILYBB Qty: 90 3RF aspirin [Enteric Coated Aspirin] 81 mg tablet,delayed release (DR/EC) 81 mg PO QAM Qty: 90 3RF metformin 500 mg tablet extended release 24 hr 1,000 mg PO QAM Qty: 180 3RF rosuvastatin 20 mg tablet 20 mg PO HS Qty: 90 3RF cholecalciferol (vitamin D3) 25 mcg (1,000 unit) tablet 25 mcg PO BID Qty: 180 3RF (DME) walker Misc See Rx Instructions .Route Qty: 1 0RF Rx Instructions: As directed meclizine 25 mg tablet 25 mg PO QAM PRN (Reason: Dizziness) Qty: 30 1RF polyethylene glycol 3350 [Miralax] 17 gram/dose powder 17 g PO DAILY Qty: 119 0RF omeprazole 20 mg capsule,delayed release(DR/EC) 40 mg PO QAM 90 Days Qty: 180 2RF benztropine 1 mg tablet 1 mg PO BID 3 Days Qty: 6 0RF clozapine 50 mg tablet 50 mg PO BID Qty: 14 0RF lamotrigine 200 mg Tablet 200 mg PO BID clozapine 100 mg Tablet 300 mg PO HS lorazepam 0.5 mg Tablet 0.5 mg PO HS clozapine 100 mg tablet 100 mg PO QAM Qty: 7 0RF quetiapine 300 mg tablet 300 mg PO HS quetiapine 200 mg tablet 200 mg PO QAM gabapentin 300 mg capsule 300 mg PO HS nystatin 100,000 unit/gram powder 1 applic topical BID PRN (Reason: Rash) Discharge Orders: Discharge Order (Routine); Ordered 11/27/22 Ordered By: Roxanne Monaco/Other Patient Handouts: Managing Type 2 Diabetes Admission Data Admit Date/Time: 11/23/22 16:08 Attending Provider: Roxanne King Admit Provider: Rashaad Stanley Primary Care Provider: Vandana Montgomery Other Providers: Enrique Carmichael ; Rashaad Stanley ; [facility] Other Interventions: Discharge Summary Assessment (RN) Last Done: 11/27/22 14:02 Coding Level of Care Code 37276 INP/OBS DISCH >30 MIN Diagnoses Osteoarthritis of right knee M17.11 PCL sprain S83.529A Tear of medial meniscus of knee joint S83.249A Frequent falls R29.6 Anxiety state, unspecified F41.1 Depression F32.9 Hypertension I10 Schizophrenia F20.9 Hypothyroidism E03.9 Iron deficiency anemia D50.9 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 E11.319 Enuresis, nocturnal only N39.44
--- NOTE | 2022-11-28 15:03 | Coding Query ---
PRESENT ON ADMISSION QUERY To promote full compliance with coding requirements relating to pateint care, physician participation is requested in all cases of inpatient coder uncertainty. Please assist us with the question(s) below: Please place an X within the parenthesis (x). The following diagnosis listed in this patient's medical record require physician assistance to determine if they were present on admission (POA) or not. Please advise for each diagnosis whether it was present on admission, not present on admission, or if it was clinically undetermined. 1. STAGE 3 RIGHT BUTTOCK DECUBITUS ULCER - (documented on the Discharge Summary) (x ) Present On Admission ( ) Not Present On Admission ( ) Clinically Undetermined Thank you Ashlyn Winkler *Definition of the present on admission (POA)-Present on admission is defined as present at the time the order for inpatient admission occurs. Conditions that develop during an outpatient encounter prior to a written order for inpatient admission (including emergency department, observation, or outpatient surgery) are considered present on admission. MTDD
== END 2022-11-27 15:12 | DRG 553 ==
LOC: ED 21:15 → 3N 21:15 → SUATTDRO 11-21 01:19 → 3N 11-21 02:22 → SUATTDRO 11-23 16:08

== ENCOUNTER 2022-12-16 06:08 | Observation (INO) ==
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
[2022-12-16 07:30] LABS: Basophils # (auto) 0.02 K/uL (0.00-0.20); Basophils % (auto) 0.5 %; Eosinophils % (auto) 2.3 %; Hematocrit (blood only) 33.1 % (37.0-47.0); Hemoglobin 10.7 g/dl (12.0-16.0); Immature Granulocytes # (auto) 0.02 K/uL (0.01-0.20); Immature Granulocytes % (auto) 0.5 %; Lymphocytes # (auto) 0.92 K/uL (1.20-3.40); Lymphocytes % (auto) 20.9 %; Mean Corpuscular Hemoglobin 30.5 pg (25.0-34.0); Mean Corpuscular Hgb Conc 32.3 g/dL (32.0-36.0); Mean Corpuscular Volume 94.3 fL (80.0-100.0); Mean Platelet Volume 9.2 fL (9.4-12.4); Monocytes # (auto) 0.41 K/uL (0.11-0.59); Monocytes % (auto) 9.3 %; Neutrophils # (auto) 2.94 K/uL (1.40-6.50); Neutrophils % (auto) 66.5 %; Platelet Count 205 K/uL (130-400); RDW Coefficient of Variation 14.4 % (11.5-14.5); RDW Standard Deviation 49.6 fL (36.4-46.3); Red Blood Count 3.51 M/uL (4.20-5.40); White Blood Count 4.41 K/ul (4.8-10.8)
[2022-12-16 07:46] LABS: Albumin Globulin Ratio 1.6 (0.9-2); Albumin Level 4.1 gm/dl (3.4-5.0); BUN Creatinine Ratio 16.2 (10-20); Bilirubin,Total 0.4 mg/dl (0.2-1.0); Calcium 9.1 mg/dl (8.6-10.3); Creatinine Clr Calc Pharmacy 64.8 ml/min; Est GFR (African American) 65.9 ml/min; Est GFR (Non-African American) 56.9 ml/min; Globulin 2.5 gm/dl (2.5-4.0); Potassium 4.4 mmol/L (3.5-5.1); Total Protein 6.6 gm/dl (6.0-8.3)
[2022-12-16 07:47] LABS: Appearance Urine Clear (Clear); Bacteria Urine Automated Negative (Negative); Bilirubin Urine Negative (Negative); Blood Urine Negative (Negative); Color Urine Yellow; Glucose Urine UA Negative (Negative); Ketones Urine Negative (Negative); Leukocyte Esterase Urine Trace (Negative); Nitrite Urine Negative (Negative); Protein Urine Negative (Negative); RBC Urine Automated 0-4 /hpf (0-4); Specific Gravity Urine 1.007 (1.000-1.030); Urobilinogen Urine Negative (Negative); pH Urine 5.5 (4.5-7.5)
--- NOTE | 2022-12-16 09:00 | XRay Report ---
LUMBAR SPINE 5 VIEWS HISTORY: Low back pain. fall COMPARISON: Lumbar spine 06/09/2014. FINDINGS: There is no fracture. No subluxation. Mild disc space narrowing at L3-L4, unchanged. Mild facet degenerative changes within the lumbar spine. The visualized sacrum is intact. IMPRESSION: No fracture or subluxation within the lumbar spine. ACT 112: Negative or not required by law. Electronically signed by: Jermaine Cheek M.D. 12/16/2022 8:59 AM
--- NOTE | 2022-12-16 09:00 | XRay Report ---
RIGHT KNEE 2 VIEWS HISTORY: Right knee pain. fall COMPARISON: Right knee 11/20/2022. FINDINGS: There is no fracture or dislocation. Soft tissues are unremarkable. No radiopaque foreign b odies. Moderate osteoarthritis again noted at the medial and patellofemoral compartments. Moderate right kne e effusion. IMPRESSION: 1. No acute fractures. 2. Moderate osteoarthritis. 3. Moderate knee effusion. ACT 112: Negative or not required by law. Electronically signed by: Jermaine Cheek M.D. 12/16/2022 8:58 AM
--- NOTE | 2022-12-16 09:02 | XRay Report ---
CERVICAL SPINE 5 VIEWS HISTORY: fall COMPARISON: None. FINDINGS: The cervical spine is visualized from C1 through the superior endplate of T1. There is no f racture. No subluxation. Mild disc space narrowing at C5-C6. Large anterior osteophytes seen through out the cervical spine. Prevertebral soft tissues and the atlantodens interval are intact. IMPRESSION: No fracture or subluxation within the cervical spine. ACT 112: Negative or not required by law. Electronically signed by: Jermaine Cheek M.D. 12/16/2022 9:01 AM
--- NOTE | 2022-12-16 09:03 | XRay Report ---
XR chest 1V not portable HISTORY: weakness COMPARISON: Chest 10/29/2022. FINDINGS: The lungs are clear. Cardiac silhouette is normal in size. No pleural effusions. No pneumot horax. IMPRESSION: No acute process. ACT 112: Negative or not required by law. Electronically signed by: Jermaine Cheek M.D. 12/16/2022 9:02 AM
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
[2022-12-16] MEDS ORDERED: QUEtiapine FUMARATE 200 MG TAB PO STA (11:24)
[2022-12-16] MEDS ORDERED: lamoTRIgine 100 MG TAB PO STA (11:24)
[2022-12-16] MEDS ORDERED: PANTOprazole 40 MG TAB PO STA (11:25)
[2022-12-16] MEDS ORDERED: cloZAPine 100 MG TAB PO STA (11:28)
[2022-12-16] MEDS ORDERED: BENZTROPINE MESYLATE 1 MG TAB PO STA (11:29)
--- NOTE | 2022-12-16 12:50 | Electrocardiogram Report ---
Test Reason : Blood Pressure : / mmHG Vent. Rate : 082 BPM Atrial Rate : 082 BPM P-R Int : 166 ms QRS Dur : 108 ms QT Int : 418 ms P-R-T Axes : 047 -12 030 degrees QTc Int : 488 ms Normal sinus rhythm Low voltage QRS Poor R wave progression, consider anterior SD vs. lead placement vs. LVH Abnormal ECG When compared with ECG of 29-OCT-2022 22:08, No significant change was found Confirmed by Pablo Long ([id number]) on 12/16/2022 12:50:14 PM Referred By: REFERRED SELF Confirmed By:Pablo Long
[2022-12-16] MEDS ORDERED: NAPROXEN 375 MG TAB PO PRN (15:30)
[2022-12-16] MEDS: lamoTRIgine 100 MG TAB PO SCH (20:17)
[2022-12-16] MEDS: ROSUVASTATIN CALCIUM 20 MG TAB PO SCH (20:17)
[2022-12-16] MEDS: QUEtiapine FUMARATE 300 MG TABLET PO SCH (20:17)
[2022-12-16] MEDS: BENZTROPINE MESYLATE 1 MG TAB PO SCH (20:17)
[2022-12-16] MEDS: cloZAPine 100 MG TAB PO SCH (20:18)
[2022-12-16] MEDS: LORazepam 0.5 MG TAB PO SCH (20:18)
[2022-12-16] MEDS: CHOLECALCIFEROL 1,000 UNITS 25 MCG TAB PO SCH (20:18)
[2022-12-16] MEDS: cloZAPine 25 MG TAB PO SCH (20:18)
[2022-12-16] MEDS: GABAPENTIN 300 MG CAP PO SCH (20:18)
[2022-12-16] MEDS: ACETAMINOPHEN 500 MG TAB PO SCH (20:18)
[2022-12-17] MEDS: LEVOTHYROXINE SODIUM 175 MCG TABLET PO SCH (05:52)
[2022-12-17] MEDS: cloZAPine 25 MG TAB PO SCH ×2 (07:35→20:51)
[2022-12-17] MEDS: PANTOprazole 40 MG TAB PO SCH (07:36)
[2022-12-17] MEDS: CHOLECALCIFEROL 1,000 UNITS 25 MCG TAB PO SCH ×2 (07:36→20:52)
[2022-12-17] MEDS: BENZTROPINE MESYLATE 1 MG TAB PO SCH ×2 (07:36→20:52)
[2022-12-17] MEDS: QUEtiapine FUMARATE 200 MG TAB PO SCH (07:36)
[2022-12-17] MEDS: ASPIRIN 81 MG ECTAB PO SCH (07:36)
[2022-12-17] MEDS: ACETAMINOPHEN 500 MG TAB PO SCH ×3 (07:37→20:50)
[2022-12-17] MEDS: metFORMIN HCL ER 500 MG TABCR PO SCH (07:37)
[2022-12-17] MEDS: cloZAPine 100 MG TAB PO SCH ×2 (07:37→20:49)
[2022-12-17] MEDS: lamoTRIgine 100 MG TAB PO SCH ×2 (07:37→20:49)
[2022-12-17] MEDS: POLYETHYLENE (MIRALAX) 17 GM PACK PO SCH (07:38)
[2022-12-17] MEDS: ENOXAPARIN INJ 40 MG/0.4 ML SYR SQ SCH (10:53)
[2022-12-17] MEDS ORDERED: MICONAZOLE NITRATE POWDER 85 GM EXT PRN (17:01)
--- NOTE | 2022-12-17 20:33 | Hospitalist Progress Note ---
Date of Service December 17, 2022 Assessment & Plan (1) Frequent falls: Plan: Falls on 12/14 and 12/15 Before that, extensive history of recurrent falls dating back to 2018 Imaging on current visit: [facility] Spine MRI on 11/25/2022: NAF Etiology likely due to ongoing right knee issues with severe arthritis, meniscal tear, partial PCL tear PT/OT evaluated and recommend rehab -add Celebrex 100mg po bid and dc naprosyn -consult Ortho for ongoing opinion about knee replacement? -add ice to area (2) Tear of medial meniscus of knee joint: Plan: Degenerative and/or traumatic tear of right knee 11/21/22: Arthrocentesis of R knee effusion with cortisone injection (3) Schizophrenia: Plan: Continue lamotrigine Continue quetiapine Continue benztropine, clozapine (4) Constipation: Plan: Continue MiraLAX powder (5) 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: Plan: Glucose at 123 on admission Last A1c: 6.3 on 11/21/22 Monitor BSG ACHS, with goal range 110-150 mg/dL Continue metformin Diabetic diet Adjust regimen as needed (6) Neuropathic pain: Plan: Continue gabapentin (7) Hypothyroidism: Plan: Continue levothyroxine 175mcg check TSH in a few more weeks since last med change in Nov 2022 Plan VTE prophylaxis - lovenox Diet - T2DM Disposition - medically stable for discharge, awaiting rehab placement Admission and Anticipated Discharge Date Admission Date: December 16, 2022 Anticipated date of discharge: 12/18/22 Subjective Pt c/o significant right knee pain and stiffness. No other concerns Physical Exam Constitutional: WD/WN, vitals as above Respiratory: normal respiratory effort, lungs clear to auscultation Cardiovascular: RRR, no murmur, no edema Musculoskeletal: Knee: + effusion, + limited ROM of knee (0-80 degrees), + joint line tenderness (MJLT) and + valgus alignment; no skin erythema Psychiatric: A+Ox3, euthymic affect Results & Data Results & Data Vital Signs (Past 12 Hours) Vital Signs Temp Pulse Resp BP Pulse Ox O2 Del Method 12/17/22 15:19 37.1 C 86 16 100/68 96 Room Air PG Care Time/CCT Total # of Minutes Spent Total Time Spent with Patient: Total time spent is greater than 50% in coordination of care (as documented) at patient's floor/unit and/or counseling patient: Coding Level of Care Code 58919 SUB INP/OBS CARE 05/02MIN Diagnoses Frequent falls R29.6 Tear of medial meniscus of knee joint S83.249A Schizophrenia F20.9 Constipation K59.00 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 E11.319 Neuropathic pain M79.2 Hypothyroidism E03.9
[2022-12-17] MEDS: GABAPENTIN 300 MG CAP PO SCH (20:50)
[2022-12-17] MEDS: ROSUVASTATIN CALCIUM 20 MG TAB PO SCH (20:52)
[2022-12-17] MEDS: QUEtiapine FUMARATE 300 MG TABLET PO SCH (20:52)
[2022-12-17] MEDS: CELECOXIB 100 MG CAP PO SCH (20:58)
[2022-12-17] MEDS: LORazepam 0.5 MG TAB PO SCH (20:58)
[2022-12-18] MEDS: LEVOTHYROXINE SODIUM 175 MCG TABLET PO SCH (05:52)
[2022-12-18] MEDS: cloZAPine 25 MG TAB PO SCH ×2 (07:32→20:55)
[2022-12-18] MEDS: lamoTRIgine 100 MG TAB PO SCH ×2 (07:33→20:55)
[2022-12-18] MEDS: PANTOprazole 40 MG TAB PO SCH (07:33)
[2022-12-18] MEDS: CELECOXIB 100 MG CAP PO SCH ×2 (07:33→20:54)
[2022-12-18] MEDS: cloZAPine 100 MG TAB PO SCH ×2 (07:33→20:53)
[2022-12-18] MEDS: CHOLECALCIFEROL 1,000 UNITS 25 MCG TAB PO SCH ×2 (07:33→20:54)
[2022-12-18] MEDS: QUEtiapine FUMARATE 200 MG TAB PO SCH (07:34)
[2022-12-18] MEDS: ACETAMINOPHEN 500 MG TAB PO SCH ×3 (07:34→20:53)
[2022-12-18] MEDS: BENZTROPINE MESYLATE 1 MG TAB PO SCH ×2 (07:34→20:52)
[2022-12-18] MEDS: ASPIRIN 81 MG ECTAB PO SCH (07:34)
[2022-12-18] MEDS: metFORMIN HCL ER 500 MG TABCR PO SCH (07:35)
[2022-12-18] MEDS: ENOXAPARIN INJ 40 MG/0.4 ML SYR SQ SCH (07:35)
[2022-12-18] MEDS: POLYETHYLENE (MIRALAX) 17 GM PACK PO SCH (07:36)
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
--- NOTE | 2022-12-18 16:54 | Hospitalist Progress Note ---
Date of Service December 18, 2022 Assessment & Plan (1) Frequent falls: Plan: Falls on 12/14 and 12/15 Before that, extensive history of recurrent falls dating back to 2018 Imaging on current visit: [facility] MRI on 11/25/2022: [facility] Etiology likely due to ongoing right knee issues with severe arthritis, meniscal tear, partial PCL tear PT/OT evaluated and recommend rehab Pain much improved in knee with Celebrex-would remain on this -continue Celebrex 100mg po bid -consult Ortho for ongoing opinion about knee replacement appreciated-not sure she's a good candidate for such--> recommends ongoing current treatment and f/u in office in 2 weeks -continue ice to area (2) Tear of medial meniscus of knee joint: Plan: Degenerative and/or traumatic tear of right knee 11/21/22: Arthrocentesis of R knee effusion with cortisone injection (3) Schizophrenia: Plan: Continue lamotrigine Continue quetiapine Continue benztropine, clozapine (4) Constipation: Plan: Continue MiraLAX powder (5) 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: Plan: Glucose at 123 on admission Last A1c: 6.3 on 11/21/22 Monitor BSG ACHS, with goal range 110-150 mg/dL Continue metformin Diabetic diet Adjust regimen as needed (6) Neuropathic pain: Plan: Continue gabapentin (7) Hypothyroidism: Plan: Continue levothyroxine 175mcg check TSH in a few more weeks since last med change in Nov 2022 Plan VTE prophylaxis - lovenox Diet - T2DM Disposition - medically stable for discharge, awaiting rehab placement-insurance auth pending Admission and Anticipated Discharge Date Admission Date: December 18, 2022 Anticipated date of discharge: 12/19/22 Subjective Pt feeling much better today with starting Celebrex last night and the icing. Denies any other problems. Physical Exam Constitutional: WD/WN, vitals as above Respiratory: normal respiratory effort, lungs clear to auscultation Cardiovascular: RRR, no murmur, no edema Musculoskeletal: Knee: + effusion (smaller than previous), + limited ROM of knee (0-80 degrees), + joint line tenderness (MJLT) and + valgus alignment; no s kin erythema Psychiatric: A+Ox3, euthymic affect Results & Data Results & Data Vital Signs (Past 12 Hours) Vital Signs Temp Pulse Resp BP Pulse Ox O2 Del Method 12/18/22 16:00 36.8 C 78 16 122/79 98 Room Air 12/18/22 07:13 36.8 C 78 18 105/65 95 Room Air PG Care Time/CCT Total # of Minutes Spent Total Time Spent with Patient: Total time spent is greater than 50% in coordination of care (as documented) at patient's floor/unit and/or counseling patient: Coding Level of Care Code 09735 SUB INP/OBS CARE 1/25MIN Diagnoses Frequent falls R29.6 Tear of medial meniscus of knee joint S83.249A Schizophrenia F20.9 Constipation K59.00 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 E11.319 Neuropathic pain M79.2 Hypothyroidism E03.9
[2022-12-18] MEDS: QUEtiapine FUMARATE 300 MG TABLET PO SCH (20:52)
[2022-12-18] MEDS: GABAPENTIN 300 MG CAP PO SCH (20:52)
[2022-12-18] MEDS: ROSUVASTATIN CALCIUM 20 MG TAB PO SCH (20:54)
[2022-12-18] MEDS: LORazepam 0.5 MG TAB PO SCH (20:56)
[2022-12-19] MEDS: LEVOTHYROXINE SODIUM 175 MCG TABLET PO SCH (05:44)
[2022-12-19] MEDS: lamoTRIgine 100 MG TAB PO SCH ×2 (07:43→19:39)
[2022-12-19] MEDS: metFORMIN HCL ER 500 MG TABCR PO SCH (07:43)
[2022-12-19] MEDS: PANTOprazole 40 MG TAB PO SCH (07:43)
[2022-12-19] MEDS: QUEtiapine FUMARATE 200 MG TAB PO SCH (07:43)
[2022-12-19] MEDS: cloZAPine 25 MG TAB PO SCH ×2 (07:43→19:38)
[2022-12-19] MEDS: cloZAPine 100 MG TAB PO SCH ×2 (07:43→19:38)
[2022-12-19] MEDS: ASPIRIN 81 MG ECTAB PO SCH (07:43)
[2022-12-19] MEDS: CELECOXIB 100 MG CAP PO SCH ×2 (07:44→19:36)
[2022-12-19] MEDS: BENZTROPINE MESYLATE 1 MG TAB PO SCH ×2 (07:44→19:36)
[2022-12-19] MEDS: CHOLECALCIFEROL 1,000 UNITS 25 MCG TAB PO SCH ×2 (07:44→19:36)
[2022-12-19] MEDS: ACETAMINOPHEN 500 MG TAB PO SCH ×3 (07:44→19:37)
[2022-12-19] MEDS: ENOXAPARIN INJ 40 MG/0.4 ML SYR SQ SCH (07:45)
[2022-12-19] MEDS: POLYETHYLENE (MIRALAX) 17 GM PACK PO SCH (07:47)
--- NOTE | 2022-12-19 09:28 | Orthopedic Progress Note ---
Date of Service December 19, 2022 Assessment & Plan (1) Knee pain, right: Plan: We discussed once discharge starting viscosupplementation for right knee. I did discuss typically there is a delay in response to these medications as far as pain control but people do mostly get relief with this. It is an option for her since she is not the ideal surgical candidate at this time. Patient is agreeable would like to pursue this. I did contact Daphne at our office to start the process for authorization. Once authorization is obtained for BAEZA injections patient will be contacted to start these as an outpatient. Patient will continue with weightbearing as tolerated with walker and maximal assistance Ice with easy wrap PT/OT Pain control with p.o. or IV pain medication We will continue to follow patient while in house Medicine will service primary service Patient will most likely need to return to either rehab or [facility] facility Patient may follow-up at [facility] orthopedics upon discharge. Present on Admission?: Yes Admission and Anticipated Discharge Date Admission Date: December 18, 2022 Subjective Patient is a 62-year-old female who is being seen bedside this AM. She is being followed for right knee osteoarthritis. She has a history of having a joint aspiration as well as a therapeutic corticosteroid injection in early November. She is seen in bed laying down resting. She states the right knee is starting to feel little bit better. She is hoping to be able [facility]. She denies any concerns this AM. She rates her pain as 2/10 her right knee. Physical Exam Physical Exam: General: Patient is alert and oriented x3 no acute distress Integumentary/musculoskeletal: Skin is normal in color and temperature negative for erythema or warmth. Trace effusion right knee. She is able to tolerate active range of motion extension -5 degrees to approximately 75 degrees knee flexion. She is able to do active straight leg raise without assistance and dorsiflex/plantarflex right ankle without issue. Right lower extremity is neurovascular intact. Results & Data Vital Signs (Past 12 Hours) Vital Signs Temp Pulse Resp BP Pulse Ox O2 Del Method 12/19/22 07:30 Room Air 12/19/22 07:20 36.4 C L 85 16 135/80 96 Room Air
[2022-12-19] MEDS ORDERED: FAMOTIDINE 20 MG in SYRINGE 3 ML IV ONE (11:30)
[2022-12-19] MEDS ORDERED: PROCHLORPERAZINE 5 MG in SYRINGE 4 ML IV ONE (11:30)
--- NOTE | 2022-12-19 15:11 | Hospitalist Progress Note ---
Date of Service December 19, 2022 Assessment & Plan (1) Frequent falls: Plan: Falls on 12/14 and 12/15 Before that, extensive history of recurrent falls dating back to 2018 Imaging on current visit: [facility] MRI on 11/25/2022: [facility] Etiology likely due to ongoing right knee issues with severe arthritis, meniscal tear, partial PCL tear PT/OT evaluated and recommend rehab Pain much improved in knee with Celebrex-would remain on this after discharge -continue Celebrex 100mg po bid -consult Ortho for ongoing opinion about knee replacement appreciated-not sure she's a good candidate for such--> recommends viscosupplementation injections and will make arrangements for such in their office -continue ice to area -needs rehab placement (2) Tear of medial meniscus of knee joint: Plan: Degenerative and/or traumatic tear of right knee 11/21/22: Arthrocentesis of R knee effusion with cortisone injection (3) Osteoarthritis of right knee: Plan: as above, severe (4) Schizophrenia: Plan: Continue lamotrigine Continue quetiapine Continue benztropine, clozapine (5) Constipation: Plan: Resolved -Continue MiraLAX powder as needed (6) 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: Plan: Glucose at 123 on admission Last A1c: 6.3 on 11/21/22 Monitor BSG ACHS, with goal range 110-150 mg/dL Continue metformin Diabetic diet Adjust regimen as needed (7) Neuropathic pain: Plan: Continue gabapentin (8) Hypothyroidism: Plan: Continue levothyroxine 175mcg check TSH in a few more weeks since last med change in Nov 2022 Plan VTE prophylaxis - lovenox Diet - T2DM. Had mild nausea 12/19 resolved with pepcid Disposition - medically stable for discharge, awaiting rehab placement-insurance auth still pending Admission and Anticipated Discharge Date Admission Date: December 18, 2022 Subjective Feeling much better, less pain in knee, ambulating halls with a walker. Is now moving bowels. Had some nausea this AM which is now improved Physical Exam Constitutional: WD/WN, vitals as above Respiratory: normal respiratory effort, lungs clear to auscultation Cardiovascular: RRR, no murmur, no edema Gastrointestinal (Abdomen): normal bowel sounds, soft, nontender, no hepatosplenomegaly Musculoskeletal: Knee: + effusion (smaller than previous), + limited ROM of knee (0-80 degrees), + joint line tenderness (MJLT) and + valgus alignment; no skin erythema Psychiatric: A+Ox3, euthymic affect Results & Data Results & Data Vital Signs (Past 12 Hours) Vital Signs Temp Pulse Resp BP Pulse Ox O2 Del Method 12/19/22 14:50 36.6 C 83 16 104/70 98 Room Air 12/19/22 07:30 Room Air 12/19/22 07:20 36.4 C L 85 16 135/80 96 Room Air PG Care Time/CCT Total # of Minutes Spent Total Time Spent with Patient: Total time spent is greater than 50% in coordination of care (as documented) at patient's floor/unit and/or counseling patient: Coding Level of Care Code 67561 SUB INP/OBS CARE 25MIN Diagnoses Frequent falls R29.6 Tear of medial meniscus of knee joint S83.249A Osteoarthritis of right knee M17.11 Schizophrenia F20.9 Constipation K59.00 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 E11.319 Neuropathic pain M79.2 Hypothyroidism E03.9
[2022-12-19] MEDS ORDERED: LIDOCAINE 5% 1 PATCH TD SCH ×2 (17:00→17:15)
[2022-12-19] MEDS: GABAPENTIN 300 MG CAP PO SCH (19:38)
[2022-12-19] MEDS: ROSUVASTATIN CALCIUM 20 MG TAB PO SCH (19:39)
[2022-12-19] MEDS: QUEtiapine FUMARATE 300 MG TABLET PO SCH (19:39)
[2022-12-19] MEDS: LORazepam 0.5 MG TAB PO SCH (19:40)
[2022-12-20] MEDS: LEVOTHYROXINE SODIUM 175 MCG TABLET PO SCH (05:30)
[2022-12-20] MEDS: CHOLECALCIFEROL 1,000 UNITS 25 MCG TAB PO SCH (08:32)
[2022-12-20] MEDS: lamoTRIgine 100 MG TAB PO SCH (08:32)
[2022-12-20] MEDS: ACETAMINOPHEN 500 MG TAB PO SCH ×2 (08:32→14:02)
[2022-12-20] MEDS: QUEtiapine FUMARATE 200 MG TAB PO SCH (08:33)
[2022-12-20] MEDS: cloZAPine 100 MG TAB PO SCH (08:33)
[2022-12-20] MEDS: BENZTROPINE MESYLATE 1 MG TAB PO SCH (08:33)
[2022-12-20] MEDS: metFORMIN HCL ER 500 MG TABCR PO SCH (08:33)
[2022-12-20] MEDS: CELECOXIB 100 MG CAP PO SCH (08:33)
[2022-12-20] MEDS: cloZAPine 25 MG TAB PO SCH (08:34)
[2022-12-20] MEDS: ASPIRIN 81 MG ECTAB PO SCH (08:34)
[2022-12-20] MEDS: PANTOprazole 40 MG TAB PO SCH (08:34)
[2022-12-20] MEDS: ENOXAPARIN INJ 40 MG/0.4 ML SYR SQ SCH (08:35)
[2022-12-20] MEDS: POLYETHYLENE (MIRALAX) 17 GM PACK PO SCH (08:38)
--- NOTE | 2022-12-20 13:16 | Discharge Summary ---
Discharge Summary Date of Service December 20, 2022 Notes For Next Care Provider Medication Changes From Visit Celebrex 100mg po bid Tylenol 1000mg po tid Made Miralax prn due to frequent loose stools Lidocaine patch to lower back once daily x 12 hours Admission HPI Per Admitting Provider Farrah Stoll is a 62-year-old female with a PMH of frequent falls, schizophrenia, HTN, type 2 DM, and R knee medial meniscal tear. Patient presents to the ED after falling on 12/14 and 12/15 due to her right knee "giving out". Vital were stables on ED admission. She uses a walker at home for ambulation. Patient endorses mild dizziness/lightheadedness before falling; no LOC, no tripping. She takes aspirin (no other antiplatelets or anticoagulation). Patient reports ongoing ambulatory issues, fear of falling, and difficulty getting herself up off her couch. Patient remembers falling. She has been taking ibuprofen 400 mg every 4 to 6 hours, and Tylenol 1000 mg 3 times daily for her right knee pain; she was also taking tramadol, but stopped 3 days ago (stated it was "too strong"). Patient did not take morning meds before coming to the hospital. She uses a service, [facility], to manage her meds each month, and does not know what she is supposed to be taking each day. No medications given in ED. Patient was recently hospitalized at [facility] from 11/20 to 11/27 due to falls. Received right knee aspiration and cortisone injection on 11/21. Discharged to [facility] rehab - reports improvement while there but worse again when she went home. Patient endorses back pain and neck pain, but states that is chronic. Patient endorses headache, but denies hitting her head when falling. Mild constipation (on MiraLAX and milk of magnesia). Patient denies fever, chills, chest pain, SOB, abdominal pain, N/V/D, burning with urination, or blood in urine/stool. PMH - Per patient, two CVAs in 2017, 2020; no MIs; no DVT/PE; no hx of cancer FMH - Mom with hx of parkinson's disease; Dad with hx of bladder cancer; Aunt with hx of breast cancer Principal Dx & Hospital Course #1 = Principal Diagnosis (1) Frequent falls: Falls on 12/14 and 12/15 Before that, extensive history of recurrent falls dating back to 2018 Imaging on current visit: [facility] on 11/25/2022: [facility] Etiology likely due to ongoing right knee issues with severe arthritis, meniscal tear, partial PCL tear PT/OT evaluated and recommend rehab Pain much improved in knee with Celebrex-would remain on this after discharge Having some lower back pain MSK in nature from fall and from lying in bed -continue Celebrex 100mg po bid -consult Ortho for ongoing opinion about knee replacement appreciated-not sure she's a good candidate for such--> recommends viscosupplementation injections and will make arrangements for such in their office -continue ice to area -needs rehab placement -continue lidocaine patch to lower back (2) Tear of medial meniscus of knee joint: Degenerative and/or traumatic tear of right knee 11/21/22: Arthrocentesis of R knee effusion with cortisone injection (3) Osteoarthritis of right knee: as above, severe (4) Schizophrenia: Continue lamotrigine Continue quetiapine Continue benztropine, clozapine (5) Constipation: Resolved and now with loose stools -Continue MiraLAX powder as needed (6) 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: Glucose at 123 on admission Last A1c: 6.3 on 11/21/22 Continue metformin Diabetic diet Adjust regimen as needed (7) Neuropathic pain: Continue gabapentin (8) Hypothyroidism: Continue levothyroxine 175mcg check TSH in a few more weeks since last med change in Nov 2022 Plan VTE prophylaxis - lovenox Diet - T2DM. Had mild nausea 12/19 resolved with pepcid Disposition - medically stable for discharge to rehab placement Discharge Exam Constitutional WD/WN, vitals as above Respiratory normal respiratory effort, lungs clear to auscultation Cardiovascular RRR, no murmur, no edema Gastrointestinal (Abdomen) normal bowel sounds, soft, nontender, no hepatosplenomegaly Musculoskeletal Knee: + effusion (smaller than previous), + limited ROM of knee (0-80 degrees), + joint line tenderness (MJLT) and + valgus alignment; no skin erythema +TTP across lower lumbar paraspinous muscles, no masses or ecchymosis Neurologic moves all extremities; no focal motor deficits Psychiatric A+Ox3, euthymic affect Updated Medication List Medication Instructions Recorded Confirmed Type clozapine 100 mg tablet 300 mg PO HS 01/28/18 12/16/22 History lamotrigine 200 mg tablet 200 mg PO BID 01/28/18 12/16/22 History lorazepam 0.5 mg tablet 0.5 mg PO HS 01/28/18 12/16/22 History clozapine 100 mg tablet 100 mg PO QAM #7 tabs 10/02/19 12/16/22 Rx aspirin 81 mg tablet,delayed 81 mg PO QAM #90 tabs 04/17/22 12/16/22 Rx release (Enteric Coated Aspirin) metformin 500 mg tablet,extended 1,000 mg PO QAM #180 tabs 04/17/22 12/16/22 Rx release 24 hr rosuvastatin 20 mg tablet 20 mg PO HS #90 tabs 04/19/22 12/16/22 Rx benztropine 1 mg tablet 1 mg PO BID 3 days #6 tabs 04/23/22 12/16/22 Rx clozapine 50 mg tablet 50 mg PO BID #14 tabs 04/23/22 12/16/22 Rx cholecalciferol (vitamin D3) 25 25 mcg PO BID #180 tabs 05/10/22 12/16/22 Rx mcg (1,000 unit) tablet gabapentin 300 mg capsule 300 mg PO HS 10/21/22 12/16/22 History nystatin 100,000 unit/gram topical 1 applic topical BID PRN Rash 10/21/22 12/16/22 History powder quetiapine 200 mg tablet 200 mg PO QAM 10/21/22 12/16/22 History quetiapine 300 mg tablet 300 mg PO HS 10/21/22 12/16/22 History polyethylene glycol 3350 17 17 g PO DAILY #119 grams 10/25/22 12/16/22 Rx gram/dose oral powder (Miralax) omeprazole 20 mg capsule,delayed 40 mg PO QAM 90 days #180 caps 10/26/22 12/16/22 Rx release meclizine 25 mg tablet 25 mg PO QAM PRN Dizziness #30 tabs 12/06/22 12/16/22 Rx levothyroxine 175 mcg tablet 175 mcg PO DAILYBB #30 tabs 12/07/22 12/16/22 Rx celecoxib 100 mg capsule (Celebrex) 100 mg PO BID #60 caps 12/20/22 Rx Hospital Stay Data Consultations 12/16/22 09:25 ED Decision to Admit Stat 12/17/22 20:37 Consult Orthopedic Surgery Routine Pending Results Patient Have Any Pending Studies at Discharge: No Discharge Instructions Given to Patient (Per Discharging Provider) Weightbearing as tolerated with walker and maximal assistance Ice with easy wrap Please continue on the Celebrex twice a day as this is really helping your knee pain. Please continue wound care for your sacral decubitus wound and offload pressure. Total Time Total Time Spent Total Time Spent (In Minutes): 35 min Coding Level of Care Code 28148 INP/OBS DISCH >30 MIN Diagnoses Frequent falls R29.6 Tear of medial meniscus of knee joint S83.249A Osteoarthritis of right knee M17.11 Schizophrenia F20.9 Constipation K59.00 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 E11.319 Neuropathic pain M79.2 Hypothyroidism E03.9
== END 2022-12-20 15:25 ==
LOC: ED 06:08 → 3E 06:08 → SUATTDRO 10:31 → 3E 13:32

== ENCOUNTER 2023-01-16 14:22 | Inpatient (IN) ==
[2023-01-16 16:22] LABS: Basophils # (auto) 0.04 K/uL (0.00-0.20); Basophils % (auto) 0.6 %; Eosinophils # (auto) 0.09 K/uL (0.00-0.50); Eosinophils % (auto) 1.4 %; Hematocrit (blood only) 31.8 % (37.0-47.0); Hemoglobin 10.8 g/dl (12.0-16.0); Immature Granulocytes # (auto) 0.02 K/uL (0.01-0.20); Immature Granulocytes % (auto) 0.3 %; Lymphocytes # (auto) 1.22 K/uL (1.20-3.40); Lymphocytes % (auto) 19.4 %; Mean Corpuscular Hemoglobin 30.7 pg (25.0-34.0); Mean Corpuscular Volume 90.3 fL (80.0-100.0); Mean Platelet Volume 9.6 fL (9.4-12.4); Monocytes # (auto) 0.64 K/uL (0.11-0.59); Monocytes % (auto) 10.2 %; Neutrophils # (auto) 4.27 K/uL (1.40-6.50); Neutrophils % (auto) 68.1 %; Platelet Count 240 K/uL (130-400); RDW Coefficient of Variation 14.3 % (11.5-14.5); Red Blood Count 3.52 M/uL (4.20-5.40); White Blood Count 6.28 K/ul (4.8-10.8)
[2023-01-16 16:45] LABS: Albumin Level 4.7 gm/dl (3.4-5.0); BUN Creatinine Ratio 23.3 (10-20); Bilirubin Direct 0.2 mg/dl (0-0.2); Bilirubin,Total 0.7 mg/dl (0.2-1.0); Calcium 9.3 mg/dl (8.6-10.3); Creatinine Clr Calc Pharmacy 71.2 ml/min; Est GFR (African American) 79.4 ml/min; Est GFR (Non-African American) 68.5 ml/min; Magnesium 1.7 mg/dl (1.7-2.4); Potassium 3.7 mmol/L (3.5-5.1)
[2023-01-16 16:46] LABS: Acetaminophen < 3 ug/ml (10-30); Salicylate < 3.0 mg/dl (3.0-30)
[2023-01-16 16:57] LABS: Thyroid Stimulating Hormone 0.593 uIu/ml (0.300-4.500)
--- NOTE | 2023-01-16 17:04 | CT Scan Report ---
CT head/brain wo con CLINICAL HISTORY: 62 years-old Female with ams. Acutely altered mental status TECHNIQUE: Multiple axial CT images of the head were obtained without contrast. A dose lowering tech nique was utilized adhering to the principles of ALARA. CT DOSE: 625.8 mGy.cm COMPARISON: 10/29/2022. FINDINGS: No acute intracranial hemorrhage, midline shift, intracranial mass, hydrocephalus, territorial ischem ia or abnormal extra-axial collection. Involutional changes with chronic microvascular ischemic disea se redemonstrated. The calvarium is intact. The paranasal sinuses, mastoid air cells, and middle ear cavities are clear . IMPRESSION: No acute intracranial abnormality. ACT 112: Negative or not required by law. The above report was generated using voice recognition software. It may contain grammatical, syntax o r spelling errors. Electronically signed by: Lanre Green M.D. 01/16/2023 5:03 PM
--- NOTE | 2023-01-16 17:21 | XRay Report ---
XR chest 1V portable HISTORY: 62 years-old Female Sepsis acute sepsis COMPARISON: 12/16/2022 TECHNIQUE: AP view of the chest FINDINGS: The cardiac silhouette is enlarged. No pneumothorax, pleural effusion or airspace consolidation. Bone s appear grossly intact. Mild mid thoracic dextroscoliosis. IMPRESSION: No acute process. ACT 112: Negative or not required by law. The above report was generated using voice recognition software. It may contain grammatical, syntax o r spelling errors. Electronically signed by: Lanre Green M.D. 01/16/2023 5:20 PM
[2023-01-16 18:29] LABS: Appearance Urine Clear (Clear); Bilirubin Urine Negative (Negative); Blood Urine Negative (Negative); Color Urine Yellow; Glucose Urine UA Negative (Negative); Ketones Urine Negative (Negative); Leukocyte Esterase Urine Trace (Negative); Nitrite Urine Negative (Negative); Protein Urine Negative (Negative); Specific Gravity Urine 1.005 (1.000-1.030); Urobilinogen Urine Negative (Negative); pH Urine 5.5 (4.5-7.5)
[2023-01-16 18:41] LABS: Epithelial Cell Urine Auto 0-5 /lpf (0-5); RBC Urine Automated 0-4 /hpf (0-4)
[2023-01-16 18:42] LABS: Bacteria Urine Automated Negative (Negative); Cast Urine Automated 0 /lpf (0-5)
[2023-01-16 21:16] LABS: Amphetamines+Metham, Urine Neg (Neg); Barbiturates, Urine Neg (Neg); Benzodiazepine, Urine Neg (Neg); Cocaine, Urine Neg (Neg); MDMA (Ecstacy), Urine Neg (Neg); Methadone, Urine Neg (Neg); Opiate, Urine Neg (Neg); Phencyclidine, Urine Neg (Neg)
[2023-01-16 21:35] LABS: Pregnancy Test, Urine Negative (Negative)
[2023-01-16] MEDS: BENZTROPINE MESYLATE 1 MG TAB PO SCH (22:25)
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
[2023-01-16] MEDS: lamoTRIgine 100 MG TAB PO SCH (22:56)
[2023-01-16] MEDS: cloZAPine 25 MG TAB PO SCH (22:56)
--- NOTE | 2023-01-17 06:26 | Emergency Department Note ---
ED Visit Note Patient was signed out to me at change of shift from Dr. Mora. Patient is currently under 201, pending placement for bizarre behavior likely related to the patient's underlying schizophrenia. Patient remained stable overnight during my shift without any need for acute interventions on my part. Patient was signed out to my colleague, Dr. Zhu, at change of shift pending ongoing bed search. .
--- NOTE | 2023-01-17 07:18 | Emergency Department Note ---
ED Visit Note I received this patient in signout at the change of shift from Dr. Interiano pending a 201 bed search. Patient has been accepted to [facility] for inpatient psychiatric care. Please refer to previous documentation for further details of the history, physical and visit. .
[2023-01-17] MEDS ORDERED: QUEtiapine FUMARATE 200 MG TAB PO SCH (09:00)
[2023-01-17] MEDS ORDERED: cloZAPine 100 MG TAB PO SCH ×2 (09:00→21:00)
[2023-01-17] MEDS: lamoTRIgine 100 MG TAB PO SCH ×2 (10:14→21:16)
[2023-01-17] MEDS: cloZAPine 25 MG TAB PO SCH ×2 (10:14→21:17)
[2023-01-17] MEDS: BENZTROPINE MESYLATE 1 MG TAB PO SCH ×2 (10:46→21:16)
--- NOTE | 2023-01-17 12:13 | Electrocardiogram Report ---
Test Reason : Blood Pressure : / mmHG Vent. Rate : 090 BPM Atrial Rate : 090 BPM P-R Int : 156 ms QRS Dur : 102 ms QT Int : 382 ms P-R-T Axes : 029 -11 021 degrees QTc Int : 467 ms Normal sinus rhythm Low voltage QRS Poor R wave progression, consider anterior NH vs. lead placement vs. LVH Abnormal ECG When compared with ECG of 16-DEC-2022 07:06, No significant change was found Confirmed by Pablo Long ([id number]) on 01/17/2023 12:12:35 PM Referred By: REFERRED SELF Confirmed By:Pablo Long
[2023-01-17] MEDS ORDERED: SODIUM CHLORIDE 0.65% NA SOLN 45 ML (OCEAN) PRN (12:34)
[2023-01-17] MEDS ORDERED: hydrOXYzine HCl 25 MG TAB PO PRN ×2 (12:34)
[2023-01-17] MEDS ORDERED: ALUMINUM/MAGNESIUM SUSP 30 ML UDC PO PRN (12:34)
[2023-01-17] MEDS ORDERED: MAGNESIUM HYDROXIDE SUSP 30 ML UDC PO PRN (12:34)
[2023-01-17] MEDS ORDERED: POLYETHYLENE (MIRALAX) 17 GM PACK PO PRN (12:38)
[2023-01-17] MEDS ORDERED: MECLIZINE HCL 25 MG TAB PO PRN (12:38)
[2023-01-17] MEDS ORDERED: MICONAZOLE NITRATE POWDER 85 GM EXT PRN (12:44)
[2023-01-17] MEDS ORDERED: LIDOCAINE 5% 1 PATCH TD SCH (17:00)
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
[2023-01-17] MEDS ORDERED: LIDOCAINE 5% 1 PATCH TD PRN (17:30)
[2023-01-17] MEDS ORDERED: GABAPENTIN 300 MG CAP PO SCH (21:00)
[2023-01-17] MEDS ORDERED: QUEtiapine FUMARATE 300 MG TABLET PO SCH (21:00)
[2023-01-17] MEDS: CELECOXIB 100 MG CAP PO SCH (21:16)
[2023-01-17] MEDS: QUEtiapine FUMARATE 300 MG TABLET PO SCH (21:16)
[2023-01-17] MEDS: cloZAPine 100 MG TAB PO SCH (21:16)
[2023-01-17] MEDS: ROSUVASTATIN CALCIUM 20 MG TAB PO SCH (21:16)
[2023-01-17] MEDS: CHOLECALCIFEROL 1,000 UNITS 25 MCG TAB PO SCH (21:17)
[2023-01-17] MEDS: GABAPENTIN 300 MG CAP PO SCH (21:17)
[2023-01-18] MEDS: ACETAMINOPHEN 500 MG TAB PO PRN ×2 (07:00→10:03)
[2023-01-18] MEDS: LEVOTHYROXINE SODIUM 175 MCG TABLET PO SCH (07:47)
[2023-01-18] MEDS ORDERED: NON-FORMULARY MEDICATION (Omeprazole 20 mg capsule,delayed release(DR/EC)) PO SCH (09:00)
[2023-01-18] MEDS: BENZTROPINE MESYLATE 1 MG TAB PO SCH ×2 (10:03→21:11)
[2023-01-18] MEDS: ASPIRIN 81 MG ECTAB PO SCH (10:03)
[2023-01-18] MEDS: CELECOXIB 100 MG CAP PO SCH ×2 (10:03→21:10)
[2023-01-18] MEDS: PANTOprazole 40 MG TAB PO SCH (10:04)
[2023-01-18] MEDS: cloZAPine 25 MG TAB PO SCH ×2 (10:04→21:10)
[2023-01-18] MEDS: CHOLECALCIFEROL 1,000 UNITS 25 MCG TAB PO SCH ×2 (10:04→21:10)
[2023-01-18] MEDS: cloZAPine 100 MG TAB PO SCH ×2 (10:04→21:11)
[2023-01-18] MEDS: metFORMIN HCL ER 500 MG TABCR PO SCH (10:04)
[2023-01-18] MEDS: lamoTRIgine 100 MG TAB PO SCH ×2 (10:04→21:10)
[2023-01-18] MEDS: QUEtiapine FUMARATE 200 MG TAB PO SCH (10:05)
--- NOTE | 2023-01-18 13:28 | Electroencephalogram ---
EEG Procedure Note Date of Service January 18, 2023 Start / End Times Start Time: 1142 End Time: 1202 Referring Physician Mirella Farias MD History 62-year-old with altered mental status and possible postictal state. Home Medication List Medication Instructions Recorded Confirmed Type clozapine 100 mg tablet 300 mg PO HS 01/28/18 01/16/23 History lamotrigine 200 mg tablet 200 mg PO BID 01/28/18 01/16/23 History clozapine 100 mg tablet 100 mg PO QAM #7 tabs 10/02/19 01/16/23 Rx aspirin 81 mg tablet,delayed 81 mg PO QAM #90 tabs 04/17/22 01/16/23 Rx release (Enteric Coated Aspirin) metformin 500 mg tablet,extended 1,000 mg PO QAM #180 tabs 04/17/22 01/16/23 Rx release 24 hr benztropine 1 mg tablet 1 mg PO BID 3 days #6 tabs 04/23/22 01/16/23 Rx clozapine 50 mg tablet 50 mg PO BID #14 tabs 04/23/22 01/16/23 Rx cholecalciferol (vitamin D3) 25 25 mcg PO BID #180 tabs 05/10/22 01/16/23 Rx mcg (1,000 unit) tablet gabapentin 300 mg capsule 300 mg PO HS 10/21/22 01/16/23 History nystatin 100,000 unit/gram topical 1 applic topical BID PRN Rash 10/21/22 01/16/23 History powder quetiapine 200 mg tablet 200 mg PO QAM 10/21/22 01/16/23 History quetiapine 300 mg tablet 300 mg PO HS 10/21/22 01/16/23 History omeprazole 20 mg capsule,delayed 40 mg PO QAM 90 days #180 caps 10/26/22 01/16/23 Rx release celecoxib 100 mg capsule (Celebrex) 100 mg PO BID #60 caps 12/20/22 01/16/23 Rx lidocaine 5 % topical patch 1 patch transdermal DAILY@1700 12/20/22 01/16/23 Rx apply to lower back at site of pain #15 ea polyethylene glycol 3350 17 17 g PO DAILY PRN constipation 12/20/22 01/16/23 Rx gram/dose oral powder (Miralax) #119 grams levothyroxine 175 mcg tablet 175 mcg PO DAILY 90 days #90 tabs 01/10/23 01/16/23 Rx meclizine 25 mg tablet 25 mg PO QAM PRN Dizziness #30 tabs 01/15/23 01/16/23 Rx acetaminophen 500 mg tablet 1,000 mg PO TID PRN Mild Pain 01/16/23 01/16/23 History (Tylenol Extra Strength) (Scale Score 1-4) rosuvastatin 20 mg tablet (Crestor) 20 mg PO HS 01/16/23 01/16/23 History Inpatient Medication List Acetaminophen (Acetaminophen 500 Mg Tab) 1,000 mg PO TID PRN PRN Reason: Mild Pain (Scale Score 1-4) Stop: 02/16/23 12:37 Last Admin: 01/18/23 10:03 Dose: 1,000 mg Documented By: Admin: 01/18/23 07:00 Dose: 1,000 mg Documented By: ROSIO Aspirin (Aspirin 81 Mg Ectab) 81 mg PO QAM [facility] Stop: 02/17/23 08:59 Last Admin: 01/18/23 10:03 Dose: 81 mg Documented By: MELONYF Benztropine Mesylate (Benztropine Mesylate 1 Mg Tab) 1 mg PO BID [facility] Stop: 02/16/23 20:59 Last Admin: 01/18/23 10:03 Dose: 1 mg Documented By: Admin: 01/17/23 21:16 Dose: 1 mg Documented By: RB Celecoxib (Celecoxib 100 Mg Cap) 100 mg PO BID [facility] Stop: 02/16/23 20:59 Last Admin: 01/18/23 10:03 Dose: 100 mg Documented By: Admin: 01/17/23 21:16 Dose: 100 mg Documented By: RB Clozapine (Clozapine 25 Mg Tab) 50 mg PO BID [facility] Stop: 02/16/23 20:59 Last Admin: 01/18/23 10:04 Dose: 50 mg Documented By: Admin: 01/17/23 21:17 Dose: 50 mg Documented By: RB Clozapine (Clozapine 100 Mg Tab) 300 mg PO HS [facility] Stop: 02/16/23 20:59 Last Admin: 01/17/23 21:16 Dose: 300 mg Documented By: RB Clozapine (Clozapine 100 Mg Tab) 100 mg PO QAM [facility] Stop: 02/17/23 08:59 Last Admin: 01/18/23 10:04 Dose: 100 mg Documented By: TLF Gabapentin (Gabapentin 300 Mg Cap) 300 mg PO [facility] Stop: 02/16/23 20:59 Last Admin: 01/17/23 21:17 Dose: 300 mg Documented By: RB Lamotrigine (Lamotrigine 100 Mg Tab) 200 mg PO BID [facility] Stop: 02/16/23 20:59 Last Admin: 01/18/23 10:04 Dose: 200 mg Documented By: Admin: 01/17/23 21:16 Dose: 200 mg Documented By: RB Levothyroxine Sodium (Levothyroxine Sodium 175 Mcg Tablet) [facility]: 02/17/23 07:59 Last Admin: 01/18/23 07:47 Dose: 175 mcg Documented By: TLF Metformin HCl (Metformin Hcl Er 500 Mg Tabcr) 1,000 mg PO [facility] Stop: 02/17/23 08:59 Last Admin: 01/18/23 10:04 Dose: 1,000 mg Documented By: TLF Pantoprazole Sodium (Pantoprazole 40 Mg Tab) 40 mg PO [facility] Stop: 02/17/23 08:59 Last Admin: 01/18/23 10:04 Dose: 40 mg Documented By: TLF Quetiapine Fumarate (Quetiapine Fumarate 200 Mg Tab) 200 mg PO [facility] Stop: 02/17/23 08:59 Last Admin: 01/18/23 10:05 Dose: 200 mg Documented By: TLF Quetiapine Fumarate (Quetiapine Fumarate 300 Mg Tablet) 300 mg PO [facility] Stop: 02/16/23 20:59 Last Admin: 01/17/23 21:16 Dose: 300 mg Documented By: RB Rosuvastatin Calcium (Rosuvastatin Calcium 20 Mg Tab) 20 mg PO [facility] Stop: 02/16/23 20:59 Last Admin: 01/17/23 21:16 Dose: 20 mg Documented By: RB Vitamin D (Cholecalciferol 1,000 Units 25 Mcg Tab) 1,000 units PO BID [facility] Stop: 02/16/23 20:59 Last Admin: 01/18/23 10:04 Dose: 1,000 units Documented By: Admin: 01/17/23 21:17 Dose: 1,000 units Documented By: RB Discontinued Medications Benztropine Mesylate (Benztropine Mesylate 1 Mg Tab) 1 mg PO BID [facility] Stop: 02/15/23 21:59 Last Admin: 01/17/23 10:46 Dose: 1 mg Documented By: Admin: 01/16/23 22:25 Dose: 1 mg Documented By: SJ Clozapine (Clozapine 25 Mg Tab) 50 mg PO BID [facility] Stop: 02/15/23 22:14 Last Admin: 01/17/23 10:14 Dose: 50 mg Documented By: Admin: 01/16/23 22:56 Dose: 50 mg Documented By: MMG Clozapine (Clozapine 100 Mg Tab) 100 mg PO QAM [facility] Stop: 02/16/23 08:59 Last Admin: 01/17/23 10:15 Dose: 100 mg Documented By: AM Lamotrigine (Lamotrigine 100 Mg Tab) 200 mg PO BID [facility] Stop: 02/15/23 22:14 Last Admin: 01/17/23 10:14 Dose: 200 mg Documented By: Admin: 01/16/23 22:56 Dose: 200 mg Documented By: JASBIR Lidocaine (Lidocaine 5% 1 Patch) 1 patch TD DAILY@1700 [facility] Stop: 02/16/23 16:59 Last Admin: 01/17/23 17:10 Dose: Not Given Documented By: RB Quetiapine Fumarate (Quetiapine Fumarate 200 Mg Tab) 200 mg PO QAM [facility] Stop: 02/16/23 08:59 Last Admin: 01/17/23 10:15 Dose: 200 mg Documented By: AM Description This is a 21 electrode EEG with a single channel dedicated to limited EKG. The electrodes were placed in accordance with the International 10-20 system. Interpretation The predominant background activity consists of somewhat irregular 8 Hz activity, of up to 60 mV in amplitude,seen symmetrically distributed over the posterior head regions bilaterally, spreading anteriorly bilaterally and sy mmetrically. This activity attenuates some with eye-opening and other alerting procedures. Photic stimulation was performed and elicited no change in the background activity and no abnormal responses were seen. Hyperventilation was not performed. A mild amount of muscle and movement artifact activity contaminated the recording, yet did not hinder interpretation to any significant degree. Throughout the waking portion of the recording, no focal abnormalities, abnormal slow activity, or potentially epileptogenic discharges are seen. The patient entered the drowsy state and brief periods of stage II sleep with no further activation. In summary, this EEG was essentially normal during wakefulness and sleep. No focal abnormalities, potentially epileptogenic discharges, or abnormal slow ac tivity was seen. Clinical Correlation The abscence of potentially epileptogenic activity does not exclude a seizure disorder, since interictally, EEGs can be normal. Clinical correlation is required. [facility] EEG Procedure Codes Indication for Procedure (1) Altered mental status: (2) Schizoaffective disorder: Neurology Neurology: 11042 EEG include record awake & sleepy
[2023-01-18] MEDS: ACETAMINOPHEN 325 MG TAB PO PRN (14:53)
--- NOTE | 2023-01-18 15:08 | Psychiatric Progress Note ---
Date of Service January 18, 2023 Impression / Recommendations Impression 62 yo female with severe psychiatric illness since her teens classified as schizoaffective disorder, need to obtain additional collateral but reports no active [place] or hospitalizations for years, last inpatient [facility] a decade ago. She continues to live independently in the community with supports. Timeline for her decompensation or any suspected medication compliance is unclear and she is currently an unreliable historian. Abrupt discontinuation of her clozaril could precipitate a delirium vs. intermittent compliance triggering a manic episode vs. disorganization from breakthrough psychosis vs. underlying progression of a yet to be identified cognitive disorder. Regardless, currently seems sedated but not encephalopathic so clozaril toxicity is unlikely. A level could be drawn but would be unreliable at this point and not immediately available to guide treatment. 01/18/2023: significantly improvement from reported initial presentation Overall, I spent a total of 46 minutes with this case, including review of chart, direct evaluation of the patient, counseling the patient, ordering EEG/revising report, coordination with nursing, treatment team, and documentation. (1) Schizoaffective disorder: Plan 01/18/2023: EEG read by neurologist as normal. continue current meds and monitoring. 01/17/2023: The patient was [facility] ([facility]) on q15 min checks (behavioral with suicide precautions) for safety. The patient will participate in group, recreational, and milieu therapies and will be offered additional individual and family sessions as clinically appropriate. At this point she just transitioned up to the unit following boarding in the ED so will monitor on home medications. If she had missed more than 2 days worth of clozaril protocol would have been to retitrate, may check CBC early. Limit anticholinergics. Fall risk. Inventory Assets Strengths: has social supports, accepting of services Needs: med safety plan, improve coping Suicide Risk Level Suicide Risk Level: Moderate (q15 min suicide checks) (mainly as disorganized and unable to assess) Risk Factors Assessment : Yes Do You Have Access To A Gun?: No Mental Health Diagnoses: Yes Substance Use Disorders: No Previous Attempt: No Previous Psychiatric Hospitalization: Yes Protective Factors Assessment : No Employed: No Stable Relationships: Yes Interval History Identifying Information PAMELA HERRERA is a 62-year-old F who currently lives in [place], has a history of schizoaffective disorder, and was admitted on 01/17/23 12:34 on a 201 voluntary commitment for erratic behavior. Chief Complaint "I sort of remember what happened but know I've been taking my meds". Review of Systems Sleep Information Total Hours of Sleep: 8.5 Meal Information Percent Meal Consumed - Breakfast: 100 Percent Meal Consumed - Lunch: 100 Percent Meal Consumed - Dinner: 0 Subjective Subjective Patient was seen & assessed and interval progress reviewed with treatment team. The patient is much more alert today, ambulating well with walker and interacting with staff. If not distracted by an activity she seems preoccupied with a friend who recently but unclear if that is accurate. Physical Exam Psychiatric Orientation: alert, oriented to person and oriented to place Apperance: appropriately groomed Eye Contact: good eye contact Motor Behavior: no abnormal motor movements Speech: normal rate/rhythm/volume of speech Affect: euthymic affect Mood: no depressed mood Thought Process: + concrete thought process Thought Content: + paranoid (general belief that is being watched at apartment); no delusions Suicidal Thoughts: denies suicidal thoughts Homicidal Thoughts: denies homicidal thoughts Hallucinations: no auditory hallucinations and no visual hallucinations Cognition: attention grossly intact and language grossly intact Estimated Intelligence: consistent with education level Insight: + limited insight Judgment: + limited judgement Vital Signs (Past 24 Hours) Last Vital Signs Temp 37.4 C 01/18/23 06:48 Pulse 83 01/18/23 06:48 Resp 16 01/18/23 06:48 BP 107/70 01/18/23 06:48 Pulse Ox 96 01/17/23 15:08 O2 Del Method Room Air 01/17/23 15:08 Results & Data ([facility]) Current Inpatient Medications Current Inpatient Medications: Current Inpatient Medications Acetaminophen (Acetaminophen 325 Mg Tab) 650 mg PO Q4H PRN PRN Reason: Headache or Minor Fever Stop: 02/16/23 12:33 Last Admin: 01/18/23 14:53 Dose: 650 mg Acetaminophen (Acetaminophen 500 Mg Tab) 1,000 mg PO TID PRN PRN Reason: Mild Pain (Scale Score 1-4) Stop: 02/16/23 12:37 Last Admin: 01/18/23 10:03 Dose: 1,000 mg Al Hydrox/Mg Hydrox/Simethicone (Aluminum/Magnesium Susp 30 Ml Udc) 30 ml PO Q4H PRN PRN Reason: GI Upset Stop: 02/16/23 12:33 Aspirin (Aspirin 81 Mg Ectab) 81 mg PO QAM [facility] Stop: 02/17/23 08:59 Last Admin: 01/18/23 10:03 Dose: 81 mg Benztropine Mesylate (Benztropine Mesylate 1 Mg Tab) 1 mg PO BID [facility] Stop: 02/16/23 20:59 Last Admin: 01/18/23 10:03 Dose: 1 mg Bismuth Subsalicylate (Bismuth Subsalicylate Liqd 236 Ml) 15 ml PO PRN PRN PRN Reason: Loose Stool Stop: 02/16/23 12:33 Celecoxib (Celecoxib 100 Mg Cap) 100 mg PO BID [facility] Stop: 02/16/23 20:59 Last Admin: 01/18/23 10:03 Dose: 100 mg Clozapine (Clozapine 25 Mg Tab) 50 mg PO BID [facility] Stop: 02/16/23 20:59 Last Admin: 01/18/23 10:04 Dose: 50 mg Clozapine (Clozapine 100 Mg Tab) 300 mg PO HS [facility] Stop: 02/16/23 20:59 Last Admin: 01/17/23 21:16 Dose: 300 mg Clozapine (Clozapine 100 Mg Tab) 100 mg PO QAM [facility] Stop: 02/17/23 08:59 Last Admin: 01/18/23 10:04 Dose: 100 mg Gabapentin (Gabapentin 300 Mg Cap) 300 mg PO HS [facility] Stop: 02/16/23 20:59 Last Admin: 01/17/23 21:17 Dose: 300 mg Hydroxyzine HCl (Hydroxyzine Hcl 25 Mg Tab) 50 mg PO HSZ PRN PRN Reason: Insomnia Stop: 02/16/23 12:33 Hydroxyzine HCl (Hydroxyzine Hcl 25 Mg Tab) 25 mg PO Q4H PRN PRN Reason: Anxiety Stop: 02/16/23 12:33 Lamotrigine (Lamotrigine 100 Mg Tab) 200 mg PO BID [facility] Stop: 02/16/23 20:59 Last Admin: 01/18/23 10:04 Dose: 200 mg Levothyroxine Sodium (Levothyroxine Sodium 175 Mcg Tablet) 175 mcg PO DAILYBB [facility] Stop: 02/17/23 07:59 Last Admin: 01/18/23 07:47 Dose: 175 mcg Lidocaine (Lidocaine 5% 1 Patch) 1 patch TD DAILY PRN PRN Reason: pain Stop: 02/16/23 17:29 Magnesium Hydroxide (Magnesium Hydroxide Susp 30 Ml Udc) 30 ml PO DAILY PRN PRN Reason: Constipation Stop: 02/16/23 12:33 Meclizine HCl (Meclizine Hcl 25 Mg Tab) 25 mg PO QAM PRN PRN Reason: Dizziness Stop: 02/16/23 12:37 Metformin HCl (Metformin Hcl Er 500 Mg Tabcr) 1,000 mg PO QAM [facility] Stop: 02/17/23 08:59 Last Admin: 01/18/23 10:04 Dose: 1,000 mg Miconazole Nitrate (Miconazole Nitrate Powder 85 Gm) 1 appln EXT TID PRN PRN Reason: rash Stop: 02/16/23 13:59 Miscellaneous (Remove Lidoderm Patch) 1 each N/A DAILY@2100 PRN PRN Reason: If patch is applied Stop: 02/16/23 17:25 Pantoprazole Sodium (Pantoprazole 40 Mg Tab) 40 mg PO QAM [facility] Stop: 02/17/23 08:59 Last Admin: 01/18/23 10:04 Dose: 40 mg Polyethylene Glycol (Polyethylene (Miralax) 17 Gm Pack) 17 gm PO DAILY PRN PRN Reason: constipation Stop: 02/16/23 12:37 Quetiapine Fumarate (Quetiapine Fumarate 200 Mg Tab) 200 mg PO QAM [facility] Stop: 02/17/23 08:59 Last Admin: 01/18/23 10:05 Dose: 200 mg Quetiapine Fumarate (Quetiapine Fumarate 300 Mg Tablet) 300 mg PO [facility] Stop: 02/16/23 20:59 Last Admin: 01/17/23 21:16 Dose: 300 mg Rosuvastatin Calcium (Rosuvastatin Calcium 20 Mg Tab) 20 mg PO HS [facility] Stop: 02/16/23 20:59 Last Admin: 01/17/23 21:16 Dose: 20 mg Sodium Chloride (Sodium Chloride 0.65% Na Soln 45 Ml (Diaz)) 1 - 2 sprays NA PRN PRN PRN Reason: Nasal Dryness/Congestion Stop: 02/16/23 12:33 Vitamin D (Cholecalciferol 1,000 Units 25 Mcg Tab) 1,000 units PO BID [facility] Stop: 02/16/23 20:59 Last Admin: 01/18/23 10:04 Dose: 1,000 units Mental Health & Subst Abuse Tx Therapist Name of Therapist: [facility] Telemarketer Name of Telemarketer: KIERRA Myers Post Discharge Appointments Primary Care Physician Name Of Family Doctor/PCP: MELINDA Primary Care Provider Appointment Comment: [address] [facility] [place] [id number]
[2023-01-18] MEDS: QUEtiapine FUMARATE 300 MG TABLET PO SCH (21:10)
[2023-01-18] MEDS: GABAPENTIN 300 MG CAP PO SCH (21:10)
[2023-01-18] MEDS: ROSUVASTATIN CALCIUM 20 MG TAB PO SCH (21:10)
[2023-01-19 08:21] LABS: Chol HDL Ratio 2.5 (0-5)
[2023-01-19] MEDS: LEVOTHYROXINE SODIUM 175 MCG TABLET PO SCH (09:35)
[2023-01-19] MEDS: ASPIRIN 81 MG ECTAB PO SCH (09:35)
[2023-01-19] MEDS: CHOLECALCIFEROL 1,000 UNITS 25 MCG TAB PO SCH ×2 (09:36→21:14)
[2023-01-19] MEDS: cloZAPine 100 MG TAB PO SCH ×2 (09:36→21:12)
[2023-01-19] MEDS: CELECOXIB 100 MG CAP PO SCH ×2 (09:36→21:15)
[2023-01-19] MEDS: cloZAPine 25 MG TAB PO SCH ×2 (09:36→21:13)
[2023-01-19] MEDS: BENZTROPINE MESYLATE 1 MG TAB PO SCH ×2 (09:36→21:15)
[2023-01-19] MEDS: PANTOprazole 40 MG TAB PO SCH (09:37)
[2023-01-19] MEDS: QUEtiapine FUMARATE 200 MG TAB PO SCH (09:37)
[2023-01-19] MEDS: lamoTRIgine 100 MG TAB PO SCH ×2 (09:37→21:13)
[2023-01-19] MEDS: metFORMIN HCL ER 500 MG TABCR PO SCH (09:37)
--- NOTE | 2023-01-19 10:11 | Psychiatric Progress Note ---
Date of Service January 19, 2023 Impression / Recommendations Impression 62 yo female with severe psychiatric illness since her teens classified as schizoaffective disorder, need to obtain additional collateral but reports no active hallucinations or hospitalizations for years, last inpatient [facility] a decade ago. She continues to live independently in the community with supports. Timeline for her decompensation or any suspected medication compliance is unclear and she is currently an unreliable historian. Abrupt discontinuation of her clozaril could precipitate a delirium vs. intermittent compliance triggering a manic episode vs. disorganization from breakthrough psychosis vs. underlying progression of a yet to be identified cognitive disorder. Diagnostically consistent with unspecified psychosis-unclear what has lead to recent exacerbation in symptoms and odd behaviors, if her friend is sick certainly could be due to trauma response or increased stress leading to acute exacerbation of psychosis vs hypomania given poor sleep even with multiple sedating medications. MNPR due to psychosis, recent odd behaviors, use of walker 01/19/2023: Alert and no evidence for confusion today. EEG was normal and reassuring. Unclear if her concerns about her friend are reality-based or not. Reviewed fasting labs which show normal TGs, total cholesterol and LDL. HDL is low. Overall, I spent a total of 40 minutes with this case including review of chart records, direct evaluation of the patient at bedside, counseling the patient, discussion during interdisciplinary treatment rounds, risk assessment, and documentation in the electronic health record. (1) Schizoaffective disorder: Plan 01/19/2023: Continue current medications and tx plan. 01/18/2023: EEG read by neurologist as normal. continue current meds and monit oring. 01/17/2023: The patient was admitted to the [facility] ([facility] inpatient mental health unit) on q15 min checks (behavioral with suicide precautions) for safety. The patient will participate in group, recreational, and milieu therapies and will be offered additional individual and family sessions as clinically appropriate. At this point she just transitioned up to the unit following boarding in the ED so will monitor on home medications. If she had missed more than 2 days worth of clozaril protocol would have been to retitrate, may check CBC early. Limit anticholinergics. Fall risk. Inventory Assets Strengths: has social supports, accepting of services Needs: med safety plan, improve coping Suicide Risk Level Suicide Risk Level: Moderate (q15 min suicide checks) (mainly as disorganized but denies SI and feels safe in the hospital and agrees to let staff know if she feels unable to remain safe or requires additional support) Risk Factors Assessment : Yes Do You Have Access To A Gun?: No Mental Health Diagnoses: Yes Substance Use Disorders: No Previous Attempt: No Previous Psychiatric Hospitalization: Yes Protective Factors Assessment : No Employed: No Stable Relationships: Yes Interval History Identifying Information PAMELA HERRERA is a 62-year-old F who currently lives in [place], has a history of schizoaffective disorder, and was admitted on 01/17/23 12:34 on a 201 voluntary commitment for erratic behavior. Chief Complaint "My friend is dying of cancer, she's likely now". Review of Systems Sleep Information Total Hours of Sleep: 6.5 Meal Information Percent Meal Consumed - Breakfast: 100 Percent Meal Consumed - Lunch: 100 Percent Meal Consumed - Dinner: 100 Subjective Subjective Patient was seen & assessed and interval progress reviewed with treatment team nursing and social work. More fixated on friend with cancer yesterday with some delusions that were not reality based (though friend weighed only 10 lbs). Has been discussing wanting to raise money in this context for her friend. Today again references her friend dying or being and her need to step in a support her friend's daughter. She reports that otherwise her mood is "good" but acknowledges "I have a lot going on". Confirms she does monthly bloodwork for her clozapine and her last ANC was last week and she reports this was normal. She denies any medication side effects. Physical Exam Psychiatric Orientation: alert, oriented x 3 and cooperative Apperance: appropriately groomed Eye Contact: good eye contact Motor Behavior: no abnormal motor movements Speech: normal rate/rhythm/volume of speech Affect: euthymic affect Mood: + anxious mood; no depressed mood Thought Process: + concrete thought process Thought Content: + paranoid and + delusions (unclear if her concerns about her friend are reality-based or delusional) Suicidal Thoughts: denies suicidal thoughts Homicidal Thoughts: denies homicidal thoughts Hallucinations: no auditory hallucinations and no visual hallucinations Cognition: attention grossly intact and language grossly intact Estimated Intelligence: consistent with education level Insight: + limited insight Judgment: + limited judgement Vital Signs (Past 24 Hours) Last Vital Signs Temp 37.0 C 01/19/23 06:55 Pulse 84 01/19/23 06:55 Resp 18 01/19/23 06:55 BP 103/63 01/19/23 06:55 Pulse Ox 95 01/19/23 06:55 O2 Del Method Room Air 01/19/23 06:55 Results & Data ([facility]) Laboratory Results Laboratory Results - last 24 hr 01/19/23 06:57 Triglycerides 147 Cholesterol 86 LDL Cholesterol, Calc 22 VLDL Cholesterol, Calc 29 HDL Cholesterol 35 Cholesterol/HDL Ratio 2.5 Current Inpatient Medications Current Inpatient Medications: Current Inpatient Medications Acetaminophen (Acetaminophen 325 Mg Tab) 650 mg PO Q4H PRN PRN Reason: Headache or Minor Fever Stop: 02/16/23 12:33 Last Admin: 01/18/23 14:53 Dose: 650 mg Acetaminophen (Acetaminophen 500 Mg Tab) 1,000 mg PO TID PRN PRN Reason: Mild Pain (Scale Score 1-4) Stop: 02/16/23 12:37 Last Admin: 01/18/23 10:03 Dose: 1,000 mg Al Hydrox/Mg Hydrox/Simethicone (Aluminum/Magnesium Susp 30 Ml Udc) 30 ml PO Q4H PRN PRN Reason: GI Upset Stop: 02/16/23 12:33 Aspirin (Aspirin 81 Mg Ectab) 81 mg PO QAM [facility] Stop: 02/17/23 08:59 Last Admin: 01/18/23 10:03 Dose: 81 mg Benztropine Mesylate (Benztropine Mesylate 1 Mg Tab) 1 mg PO BID [facility] Stop: 02/16/23 20:59 Last Admin: 01/18/23 21:11 Dose: 1 mg Bismuth Subsalicylate (Bismuth Subsalicylate Liqd 236 Ml) 15 ml PO PRN PRN PRN Reason: Loose Stool Stop: 02/16/23 12:33 Celecoxib (Celecoxib 100 Mg Cap) 100 mg PO BID [facility] Stop: 02/16/23 20:59 Last Admin: 01/18/23 21:10 Dose: 100 mg Clozapine (Clozapine 25 Mg Tab) 50 mg PO BID [facility] Stop: 02/16/23 20:59 Last Admin: 01/18/23 21:10 Dose: 50 mg Clozapine (Clozapine 100 Mg Tab) 300 mg PO HS [facility] Stop: 02/16/23 20:59 Last Admin: 01/18/23 21:11 Dose: 300 mg Clozapine (Clozapine 100 Mg Tab) 100 mg PO QAM [facility] Stop: 02/17/23 08:59 Last Admin: 01/18/23 10:04 Dose: 100 mg Gabapentin (Gabapentin 300 Mg Cap) 300 mg PO HS [facility] Stop: 02/16/23 20:59 Last Admin: 01/18/23 21:10 Dose: 300 mg Hydroxyzine HCl (Hydroxyzine Hcl 25 Mg Tab) 50 mg PO HSZ PRN PRN Reason: Insomnia Stop: 02/16/23 12:33 Hydroxyzine HCl (Hydroxyzine Hcl 25 Mg Tab) 25 mg PO Q4H PRN PRN Reason: Anxiety Stop: 02/16/23 12:33 Lamotrigine (Lamotrigine 100 Mg Tab) 200 mg PO BID [facility] Stop: 02/16/23 20:59 Last Admin: 01/18/23 21:10 Dose: 200 mg Levothyroxine Sodium (Levothyroxine Sodium 175 Mcg Tablet) 175 mcg PO DAILYBB [facility] Stop: 02/17/23 07:59 Last Admin: 01/18/23 07:47 Dose: 175 mcg Lidocaine (Lidocaine 5% 1 Patch) 1 patch TD DAILY PRN PRN Reason: pain Stop: 02/16/23 17:29 Magnesium Hydroxide (Magnesium Hydroxide Susp 30 Ml Udc) 30 ml PO DAILY PRN PRN Reason: Constipation Stop: 02/16/23 12:33 Meclizine HCl (Meclizine Hcl 25 Mg Tab) 25 mg PO QAM PRN PRN Reason: Dizziness Stop: 02/16/23 12:37 Metformin HCl (Metformin Hcl Er 500 Mg Tabcr) 1,000 mg PO QAM [facility] Stop: 02/17/23 08:59 Last Admin: 01/18/23 10:04 Dose: 1,000 mg Miconazole Nitrate (Miconazole Nitrate Powder 85 Gm) 1 appln EXT TID PRN PRN Reason: rash Stop: 02/16/23 13:59 Miscellaneous (Remove Lidoderm Patch) 1 each N/A DAILY@2100 PRN PRN Reason: If patch is applied Stop: 02/16/23 17:25 Pantoprazole Sodium (Pantoprazole 40 Mg Tab) 40 mg PO QAM [facility] Stop: 02/17/23 08:59 Last Admin: 01/18/23 10:04 Dose: 40 mg Polyethylene Glycol (Polyethylene (Miralax) 17 Gm Pack) 17 gm PO DAILY PRN PRN Reason: constipation Stop: 02/16/23 12:37 Quetiapine Fumarate (Quetiapine Fumarate 200 Mg Tab) 200 mg PO QAM [facility] Stop: 02/17/23 08:59 Last Admin: 01/18/23 10:05 Dose: 200 mg Quetiapine Fumarate (Quetiapine Fumarate 300 Mg Tablet) 300 mg PO HS [facility] Stop: 02/16/23 20:59 Last Admin: 01/18/23 21:10 Dose: 300 mg Rosuvastatin Calcium (Rosuvastatin Calcium 20 Mg Tab) 20 mg PO HS [facility] Stop: 02/16/23 20:59 Last Admin: 01/18/23 21:10 Dose: 20 mg Sodium Chloride (Sodium Chloride 0.65% Na Soln 45 Ml ([place])) 1 - 2 sprays NA PRN PRN PRN Reason: Nasal Dryness/Congestion Stop: 02/16/23 12:33 Vitamin D (Cholecalciferol 1,000 Units 25 Mcg Tab) 1,000 units PO BID [facility] Stop: 02/16/23 20:59 Last Admin: 01/18/23 21:10 Dose: 1,000 units Mental Health & Subst Abuse Tx Therapist Name of Therapist: [facility] Name of Scowman: KIERRA Myers Post Discharge Appointments Primary Care Physician Name Of Family Doctor/PCP: MELINDA Primary Care Provider Appointment Comment: [phone] [place] [phone]
[2023-01-19] MEDS: ACETAMINOPHEN 500 MG TAB PO PRN (10:32)
[2023-01-19] MEDS: ROSUVASTATIN CALCIUM 20 MG TAB PO SCH (21:10)
[2023-01-19] MEDS: QUEtiapine FUMARATE 300 MG TABLET PO SCH (21:10)
[2023-01-19] MEDS: GABAPENTIN 300 MG CAP PO SCH (21:11)
[2023-01-20] MEDS: ACETAMINOPHEN 500 MG TAB PO PRN (00:28)
[2023-01-20] MEDS: LEVOTHYROXINE SODIUM 175 MCG TABLET PO SCH (08:57)
[2023-01-20] MEDS: BENZTROPINE MESYLATE 1 MG TAB PO SCH (08:58)
[2023-01-20] MEDS: ASPIRIN 81 MG ECTAB PO SCH (08:58)
[2023-01-20] MEDS: CHOLECALCIFEROL 1,000 UNITS 25 MCG TAB PO SCH ×2 (08:59→21:19)
[2023-01-20] MEDS: CELECOXIB 100 MG CAP PO SCH ×2 (08:59→21:18)
[2023-01-20] MEDS: lamoTRIgine 100 MG TAB PO SCH ×2 (09:00→21:18)
[2023-01-20] MEDS: cloZAPine 25 MG TAB PO SCH ×2 (09:00→21:18)
[2023-01-20] MEDS: metFORMIN HCL ER 500 MG TABCR PO SCH (09:01)
[2023-01-20] MEDS: QUEtiapine FUMARATE 200 MG TAB PO SCH (09:01)
[2023-01-20] MEDS: PANTOprazole 40 MG TAB PO SCH (09:01)
[2023-01-20] MEDS: cloZAPine 100 MG TAB PO SCH ×2 (09:14→21:19)
--- NOTE | 2023-01-20 09:53 | Psychiatric Progress Note ---
Date of Service January 20, 2023 Impression / Recommendations Impression 62 yo female with severe psychiatric illness since her teens classified as schizoaffective disorder, need to obtain additional collateral but reports no active hallucinations or hospitalizations for years, last inpatient [facility] a decade ago. She continues to live independently in the community with supports. Timeline for her decompensation or any suspected medication compliance is unclear and she is currently an unreliable historian. Abrupt discontinuation of her clozaril could precipitate a delirium vs. intermittent compliance triggering a manic episode vs. disorganization from breakthrough psychosis vs. underlying progression of a yet to be identified cognitive disorder. Diagnostically consistent with unspecified psychosis-unclear what has lead to recent exacerbation in symptoms and odd behaviors, if her friend is sick certainly could be due to trauma response or increased stress leading to acute exacerbation of psychosis vs hypomania given poor sleep even with multiple sedating medications. MNPR due to psychosis, recent odd behaviors, use of walker 01/20/2023: More tired this morning and reporting some dizziness. Review of prior outpatient records from [facility] notable for history of dizziness. Discussed option to try lower AM dose of Seroquel to see if this helps which she would like to do. Lamictal level came back low at 0.9, outside of therapeutic range suggestive of possible non-adherence prior to admission leading to increased symptoms of disorganization and psychosis, though she is adamant that was taking all her medication including lamictal so will continue at current dose. Overall, I spent a total of 35 minutes with this case including review of chart records, direct evaluation of the patient at bedside, counseling the patient, discussion during interdisciplinary treatment rounds, risk assessment, and documentation in the electronic health record. (1) Schizoaffective disorder: Plan 01/20/2023: Decrease Serquel AM dose from 200mg to 100mg starting tomorrow. Will discontinue cogentin as this may also be contributing to dizziness and given prominent anticholinergic effects of clozapine and seroquel, cogentin use is redundant. Continue Seroquel 300mg HS, clozapine 100mg qAM and 300mg HS and lamictal 200mg BID. 01/19/2023: Continue current medications and tx plan. 01/18/2023: EEG read by neurologist as normal. continue current meds and monitoring. 01/17/2023: The patient was admitted to the [facility] (locked inpatient mental health unit) on q15 min checks (behavioral with suicide precautions) for safety. The patient will participate in group, recreational, and milieu therapies and will be offered additional individual and family sessions as clinically appropriate. At this point she just transitioned up to the unit following boarding in the ED so will monitor on home medications. If she had missed more than 2 days worth of clozaril protocol would have been to retitrate, may check CBC early. Limit anticholinergics. Fall risk. Inventory Assets Strengths: has social supports, accepting of services Needs: med safety plan, improve coping Suicide Risk Level Suicide Risk Level: Moderate (q15 min suicide checks) (mainly as disorganized but denies SI and feels safe in the hospital and agrees to let staff know if she feels unable to remain safe or requires additional support) Risk Factors Assessment : Yes Do You Have Access To A Gun?: No Mental Health Diagnoses: Yes Substance Use Disorders: No Previous Attempt: No Previous Psychiatric Hospitalization: Yes Protective Factors Assessment : No Employed: No Stable Relationships: Yes Interval History Identifying Information PAMELA HERRERA is a 62-year-old F who currently lives in [place], has a history of schizoaffective disorder, and was admitted on 01/17/23 12:34 on a 201 voluntary commitment for erratic behavior. Chief Complaint "I'm sleepy". Review of Systems Sleep Information Total Hours of Sleep: 5 Meal Information Percent Meal Consumed - Breakfast: 100 Percent Meal Consumed - Lunch: 25 Percent Meal Consumed - Dinner: 0 Nutrition Comment: Pt reports that she ate a later lunch, meal placed in the frig. Subjective Subjective Patient was seen & assessed and interval progress reviewed with treatment team nursing and social work. Attending groups, pleasant and cooperative. Talkative with her peers. Slept in this morning so she got closer to 7 hours. Shortly after getting up she reported dizziness and went back to her bed. Tells me she is sleepy and attributes this to not sleeping well overnight. No further dizziness at time of my assessment. She doesn't vocalize any delusions, looking forward to seeing her CM tomorrow. Adamant that she was adherent with medications prior to admission including denying missing any doses of lamictal. Physical Exam Psychiatric Orientation: alert, oriented x 3 and cooperative Apperance: appropriately groomed Eye Contact: good eye contact Motor Behavior: no abnormal motor movements Speech: normal rate/rhythm/volume of speech Affect: + anxious affect and + constricted affect Mood: + depressed mood and + anxious mood Thought Process: + concrete thought process Thought Content: reality based without delusions Suicidal Thoughts: denies suicidal thoughts Homicidal Thoughts: denies homicidal thoughts Hallucinations: no auditory hallucinations and no visual hallucinations Cognition: attention grossly intact and language grossly intact Estimated Intelligence: consistent with education level Insight: + limited insight Judgment: + limited judgement Vital Signs (Past 24 Hours) Last Vital Signs Temp 36.9 C 01/20/23 06:50 Pulse 78 01/20/23 06:50 Resp 18 01/20/23 06:50 BP 110/74 01/20/23 06:50 Pulse Ox 96 01/20/23 06:50 O2 Del Method Room Air 01/20/23 06:50 Results & Data ([facility] [place]) Current Inpatient Medications Current Inpatient Medications: Current Inpatient Medications Acetaminophen (Acetaminophen 325 Mg Tab) 650 mg PO Q4H PRN PRN Reason: Headache or Minor Fever Stop: 02/16/23 12:33 Last Admin: 01/18/23 14:53 Dose: 650 mg Acetaminophen (Acetaminophen 500 Mg Tab) 1,000 mg PO TID PRN PRN Reason: Mild Pain (Scale Score 1-4) Stop: 02/16/23 12:37 Last Admin: 01/20/23 00:28 Dose: 1,000 mg Al Hydrox/Mg Hydrox/Simethicone (Aluminum/Magnesium Susp 30 Ml Udc) 30 ml PO Q4H PRN PRN Reason: GI Upset Stop: 02/16/23 12:33 Aspirin (Aspirin 81 Mg Ectab) 81 mg PO QAM [facility] Stop: 02/17/23 08:59 Last Admin: 01/20/23 08:58 Dose: 81 mg Benztropine Mesylate (Benztropine Mesylate 1 Mg Tab) 1 mg PO BID [facility] Stop: 02/16/23 20:59 Last Admin: 01/20/23 08:58 Dose: 1 mg Bismuth Subsalicylate (Bismuth Subsalicylate Liqd 236 Ml) 15 ml PO PRN PRN PRN Reason: Loose Stool Stop: 02/16/23 12:33 Celecoxib (Celecoxib 100 Mg Cap) 100 mg PO BID [facility] Stop: 02/16/23 20:59 Last Admin: 01/20/23 08:59 Dose: 100 mg Clozapine (Clozapine 25 Mg Tab) 50 mg PO BID [facility] Stop: 02/16/23 20:59 Last Admin: 01/20/23 09:00 Dose: 50 mg Clozapine (Clozapine 100 Mg Tab) 300 mg PO HS [facility] Stop: 02/16/23 20:59 Last Admin: 01/19/23 21:12 Dose: 300 mg Clozapine (Clozapine 100 Mg Tab) 100 mg PO QAM [facility] Stop: 02/17/23 08:59 Last Admin: 01/20/23 09:14 Dose: 100 mg Gabapentin (Gabapentin 300 Mg Cap) 300 mg PO HS [facility] Stop: 02/16/23 20:59 Last Admin: 01/19/23 21:11 Dose: 300 mg Hydroxyzine HCl (Hydroxyzine Hcl 25 Mg Tab) 50 mg PO HSZ PRN PRN Reason: Insomnia Stop: 02/16/23 12:33 Hydroxyzine HCl (Hydroxyzine Hcl 25 Mg Tab) 25 mg PO Q4H PRN PRN Reason: Anxiety Stop: 02/16/23 12:33 Lamotrigine (Lamotrigine 100 Mg Tab) 200 mg PO BID [facility] Stop: 02/16/23 20:59 Last Admin: 01/20/23 09:00 Dose: 200 mg Levothyroxine Sodium (Levothyroxine Sodium 175 Mcg Tablet) 175 mcg PO DAILYBB [facility] Stop: 02/17/23 07:59 Last Admin: 01/20/23 08:57 Dose: 175 mcg Lidocaine (Lidocaine 5% 1 Patch) 1 patch TD DAILY PRN PRN Reason: pain Stop: 02/16/23 17:29 Magnesium Hydroxide (Magnesium Hydroxide Susp 30 Ml Udc) 30 ml PO DAILY PRN PRN Reason: Constipation Stop: 02/16/23 12:33 Meclizine HCl (Meclizine Hcl 25 Mg Tab) 25 mg PO QAM PRN PRN Reason: Dizziness Stop: 02/16/23 12:37 Metformin HCl (Metformin Hcl Er 500 Mg Tabcr) 1,000 mg PO QAM [facility] Stop: 02/17/23 08:59 Last Admin: 01/20/23 09:01 Dose: 1,000 mg Miconazole Nitrate (Miconazole Nitrate Powder 85 Gm) 1 appln EXT TID PRN PRN Reason: rash Stop: 02/16/23 13:59 Miscellaneous (Remove Lidoderm Patch) 1 each N/A DAILY@2100 PRN PRN Reason: If patch is applied Stop: 02/16/23 17:25 Pantoprazole Sodium (Pantoprazole 40 Mg Tab) 40 mg PO QAM [facility] Stop: 02/17/23 08:59 Last Admin: 01/20/23 09:01 Dose: 40 mg Polyethylene Glycol (Polyethylene (Miralax) 17 Gm Pack) 17 gm PO DAILY PRN PRN Reason: constipation Stop: 02/16/23 12:37 Quetiapine Fumarate (Quetiapine Fumarate 200 Mg Tab) 200 mg PO QAM [facility] Stop: 02/17/23 08:59 Last Admin: 01/20/23 09:01 Dose: 200 mg Quetiapine Fumarate (Quetiapine Fumarate 300 Mg Tablet) 300 mg PO HS [facility] Stop: 02/16/23 20:59 Last Admin: 01/19/23 21:10 Dose: 300 mg Rosuvastatin Calcium (Rosuvastatin Calcium 20 Mg Tab) 20 mg PO HS [facility] Stop: 02/16/23 20:59 Last Admin: 01/19/23 21:10 Dose: 20 mg Sodium Chloride (Sodium Chloride 0.65% Na Soln 45 Ml ([place])) 1 - 2 sprays NA PRN PRN PRN Reason: Nasal Dryness/Congestion Stop: 02/16/23 12:33 Vitamin D (Cholecalciferol 1,000 Units 25 Mcg Tab) 1,000 units PO BID [facility] Stop: 02/16/23 20:59 Last Admin: 01/20/23 08:59 Dose: 1,000 units Mental Health & Subst Abuse Tx Therapist Name of Therapist: [facility] Credit Risk Name of Director Credit Risk: KIERRA Myers Post Discharge Appointments Primary Care Physician Name Of Family Doctor/PCP: MELINDA Primary Care Provider Appointment Comment: [address] [place] [address] [address] [place] [phone]
[2023-01-20] MEDS: ACETAMINOPHEN 325 MG TAB PO PRN ×2 (13:21→19:01)
[2023-01-20] MEDS: GABAPENTIN 300 MG CAP PO SCH (21:18)
[2023-01-20] MEDS: QUEtiapine FUMARATE 300 MG TABLET PO SCH (21:19)
[2023-01-20] MEDS: ROSUVASTATIN CALCIUM 20 MG TAB PO SCH (21:19)
--- NOTE | 2023-01-21 09:17 | Psychiatric Progress Note ---
Date of Service January 21, 2023 Impression / Recommendations Impression 62 yo female with severe psychiatric illness since her teens classified as schizoaffective disorder, need to obtain additional collateral but reports no active hallucinations or hospitalizations for years, last inpatient [facility] a decade ago. She continues to live independently in the community with supports. Timeline for her decompensation or any suspected medication compliance is unclear and she is currently an unreliable historian. Abrupt discontinuation of her clozaril could precipitate a delirium vs. intermittent compliance triggering a manic episode vs. disorganization from breakthrough psychosis vs. underlying progression of a yet to be identified cognitive disorder. Diagnostically consistent with unspecified psychosis-unclear what has lead to recent exacerbation in symptoms and odd behaviors, if her friend is sick certainly could be due to trauma response or increased stress leading to acute exacerbation of psychosis vs hypomania given poor sleep even with multiple sedating medications. MNPR due to psychosis, recent odd behaviors, use of walker 01/21/2023: Did not sleep as well overnight based on hourly count but she feels much more rested and without any dizziness this morning. Mood is more elevated today, will monitor for signs of hypomania/denise shift. Seems that due to pharmacy mix-up she missed multiple doses of lamictal prior to admission likely leading to her clinical decompensation. Given lamictal has been restarted prior to this knowledge and she's been back to her previous dose for multiple days will continue at current dose with close monitoring for any rash/skin reactions. Will add to HS seroquel dose given good tolerance of adjusting morning dose to reduce dizziness. Overall, I spent a total of 35 minutes with this case including review of chart records, direct evaluation of the patient at bedside, counseling the patient, discussion during interdisciplinary treatment rounds, risk assessment, and documentation in the electronic health record. (1) Schizoaffective disorder: Plan 01/21/2023: * Seroquel 100mg qAM --decreased from 200mg qAM on 01/21/23 * increase to Seroquel 400mg HS--increased from 300mg HS on 01/21/23 * Continue clozapine 100mg qAM and 300mg HS * Continue lamictal 200mg BID 01/20/2023: Decrease Serquel AM dose from 200mg to 100mg starting tomorrow. Will discontinue cogentin as this may also be contributing to dizziness and given prominent anticholinergic effects of clozapine and seroquel, cogentin use is redundant. Continue Seroquel 300mg HS, clozapine 100mg qAM and 300mg HS and lamictal 200mg BID. 01/19/2023: Continue current medications and tx plan. 01/18/2023: EEG read by neurologist as normal. continue current meds and monitoring. 01/17/2023: The patient was [facility] on q15 min checks (behavioral with suicide precautions) for safety. The patient will participate in group, recreational, and milieu therapies and will be offered additional individual and family sessions as clinically appropriate. At this point she just transitioned up to the unit following boarding in the ED so will monitor on home medications. If she had missed more than 2 days worth of clozaril protocol would have been to retitrate, may check CBC early. Limit anticholinergics. Fall risk. Inventory Assets Strengths: has social supports, accepting of services Needs: med safety plan, improve coping Suicide Risk Level Suicide Risk Level: Moderate (q15 min suicide checks) (mainly as disorganized but denies SI and feels safe in the hospital and agrees to let staff know if she feels unable to remain safe or requires additional support) Risk Factors Assessment : Yes Do You Have Access To A Gun?: No Mental Health Diagnoses: Yes Substance Use Disorders: No Previous Attempt: No Previous Psychiatric Hospitalization: Yes Protective Factors Assessment : No Employed: No Stable Relationships: Yes Interval History Identifying Information PAMELA HERRERA is a 62-year-old F who currently lives in [place], has a history of schizoaffective disorder, and was admitted on 01/17/23 12:34 on a 201 voluntary commitment for erratic behavior. Chief Complaint "They messed up my medications, I can't believe they did that to me". Review of Systems Sleep Information Total Hours of Sleep: 4.5 Meal Information Percent Meal Consumed - Breakfast: 100 Percent Meal Consumed - Lunch: 50 Percent Meal Consumed - Dinner: 100 Nutrition Comment: Pt reports that she ate a later lunch, meal placed in the frig. Subjective Subjective Patient was seen & assessed and interval progress reviewed with treatment team nursing and social work. Still discussing her concerns about her friend with cancer and concern this individual may only weigh 10lbs. Reports her mood in the afternoon is "good" and denies any excessive fatigue or dizziness this morning with seroquel adjustment. Enjoyed meeting with her case investigator. Reports she discovered she likely missed doses of her lamictal as it was not included in her recent medication bubble wraps. Her CM is working to resolve this. Reviewed risks of her having been getting lamictal at high dose after unknown days of missing it. Reviewed risk for Clyde's Zuhair syndrome and possibility for rash developement. She understands this and agrees she will alert staff immediately if she notices a rash or that she will seek immediate medical attention/go to the ED if one develops in the future after discharge. She would like to continue with her current ordered dose of lamictal. She feels this mix up is "absolutely how I ended up here". Her outpatient CM feels she is still not at her typical baseline. Physical Exam Psychiatric Orientation: alert, oriented x 3 and cooperative Apperance: appropriately groomed Eye Contact: good eye contact Motor Behavior: no abnormal motor movements Speech: normal rate/rhythm/volume of speech Affect: euthymic affect Mood: no depressed mood and no anxious mood Thought Process: + concrete thought process Thought Content: + delusions (about friend) Suicidal Thoughts: denies suicidal thoughts Homicidal Thoughts: denies homicidal thoughts Hallucinations: no auditory hallucinations and no visual hallucinations Cognition: attention grossly intact and language grossly intact Estimated Intelligence: consistent with education level Insight: + limited insight Judgment: + limited judgement Vital Signs (Past 24 Hours) Last Vital Signs Temp 36.9 C 01/21/23 06:51 Pulse 90 01/21/23 06:51 Resp 16 01/21/23 06:51 BP 112/80 01/21/23 06:51 Pulse Ox 96 01/20/23 06:50 O2 Del Method Room Air 01/20/23 06:50 Results & Data ([facility]) Current Inpatient Medications Current Inpatient Medications: Current Inpatient Medications Acetaminophen (Acetaminophen 325 Mg Tab) 650 mg PO Q4H PRN PRN Reason: Headache or Minor Fever Stop: 02/16/23 12:33 Last Admin: 01/20/23 19:01 Dose: 650 mg Acetaminophen (Acetaminophen 500 Mg Tab) 1,000 mg PO TID PRN PRN Reason: Mild Pain (Scale Score 1-4) Stop: 02/16/23 12:37 Last Admin: 01/20/23 00:28 Dose: 1,000 mg Al Hydrox/Mg Hydrox/Simethicone (Aluminum/Magnesium Susp 30 Ml Udc) 30 ml PO Q4H PRN PRN Reason: GI Upset Stop: 02/16/23 12:33 Aspirin (Aspirin 81 Mg Ectab) 81 mg PO QAM [facility] Stop: 02/17/23 08:59 Last Admin: 01/20/23 08:58 Dose: 81 mg Bismuth Subsalicylate (Bismuth Subsalicylate Liqd 236 Ml) 15 ml PO PRN PRN PRN Reason: Loose Stool Stop: 02/16/23 12:33 Celecoxib (Celecoxib 100 Mg Cap) 100 mg PO BID [facility] Stop: 02/16/23 20:59 Last Admin: 01/20/23 21:18 Dose: 100 mg Clozapine (Clozapine 25 Mg Tab) 50 mg PO BID [facility] Stop: 02/16/23 20:59 Last Admin: 01/20/23 21:18 Dose: 50 mg Clozapine (Clozapine 100 Mg Tab) 300 mg PO HS [facility] Stop: 02/16/23 20:59 Last Admin: 01/20/23 21:19 Dose: 300 mg Clozapine (Clozapine 100 Mg Tab) 100 mg PO QAM [facility] Stop: 02/17/23 08:59 Last Admin: 01/20/23 09:14 Dose: 100 mg Gabapentin (Gabapentin 300 Mg Cap) 300 mg PO HS [facility] Stop: 02/16/23 20:59 Last Admin: 01/20/23 21:18 Dose: 300 mg Hydroxyzine HCl (Hydroxyzine Hcl 25 Mg Tab) 50 mg PO HSZ PRN PRN Reason: Insomnia Stop: 02/16/23 12:33 Hydroxyzine HCl (Hydroxyzine Hcl 25 Mg Tab) 25 mg PO Q4H PRN PRN Reason: Anxiety Stop: 02/16/23 12:33 Lamotrigine (Lamotrigine 100 Mg Tab) 200 mg PO BID [facility] Stop: 02/16/23 20:59 Last Admin: 01/20/23 21:18 Dose: 200 mg Levothyroxine Sodium (Levothyroxine Sodium 175 Mcg Tablet) 175 mcg PO DAILYBB [facility] Stop: 02/17/23 07:59 Last Admin: 01/20/23 08:57 Dose: 175 mcg Lidocaine (Lidocaine 5% 1 Patch) 1 patch TD DAILY PRN PRN Reason: pain Stop: 02/16/23 17:29 Magnesium Hydroxide (Magnesium Hydroxide Susp 30 Ml Udc) 30 ml PO DAILY PRN PRN Reason: Constipation Stop: 02/16/23 12:33 Meclizine HCl (Meclizine Hcl 25 Mg Tab) 25 mg PO QAM PRN PRN Reason: Dizziness Stop: 02/16/23 12:37 Metformin HCl (Metformin Hcl Er 500 Mg Tabcr) 1,000 mg PO QAM [facility] Stop: 02/17/23 08:59 Last Admin: 01/20/23 09:01 Dose: 1,000 mg Miconazole Nitrate (Miconazole Nitrate Powder 85 Gm) 1 appln EXT TID PRN PRN Reason: rash Stop: 02/16/23 13:59 Miscellaneous (Remove Lidoderm Patch) 1 each N/A DAILY@2100 PRN PRN Reason: If patch is applied Stop: 02/16/23 17:25 Pantoprazole Sodium (Pantoprazole 40 Mg Tab) 40 mg PO QAM [facility] Stop: 02/17/23 08:59 Last Admin: 01/20/23 09:01 Dose: 40 mg Polyethylene Glycol (Polyethylene (Miralax) 17 Gm Pack) 17 gm PO DAILY PRN PRN Reason: constipation Stop: 02/16/23 12:37 Quetiapine Fumarate (Quetiapine Fumarate 300 Mg Tablet) 300 mg PO HS [facility] Stop: 02/16/23 20:59 Last Admin: 01/20/23 21:19 Dose: 300 mg Quetiapine Fumarate (Quetiapine Fumarate 100 Mg Tablet) 100 mg PO QAM [facility] Stop: 02/20/23 08:59 Rosuvastatin Calcium (Rosuvastatin Calcium 20 Mg Tab) 20 mg PO HS [facility] Stop: 02/16/23 20:59 Last Admin: 01/20/23 21:19 Dose: 20 mg Sodium Chloride (Sodium Chloride 0.65% Na Soln 45 Ml ([place])) 1 - 2 sprays NA PRN PRN PRN Reason: Nasal Dryness/Congestion Stop: 02/16/23 12:33 Vitamin D (Cholecalciferol 1,000 Units 25 Mcg Tab) 1,000 units PO BID [facility] Stop: 02/16/23 20:59 Last Admin: 01/20/23 21:19 Dose: 1,000 units Mental Health & Subst Abuse Tx Therapist Name of Therapist: [facility] [employer] [place] [place] Name of Fibre [place]ement [place]: KIERRA Myers Post Discharge Appointments Primary Care Physician Name Of Family Doctor/PCP: MELINDA Primary Care Provider Appointment Comment: [address] [place] [address] Rowan Jorge PA 8552
[2023-01-21] MEDS: LEVOTHYROXINE SODIUM 175 MCG TABLET PO SCH (09:24)
[2023-01-21] MEDS: ASPIRIN 81 MG ECTAB PO SCH (09:24)
[2023-01-21] MEDS: CELECOXIB 100 MG CAP PO SCH ×2 (09:25→21:23)
[2023-01-21] MEDS: CHOLECALCIFEROL 1,000 UNITS 25 MCG TAB PO SCH ×2 (09:25→21:24)
[2023-01-21] MEDS: cloZAPine 25 MG TAB PO SCH ×2 (09:26→21:24)
[2023-01-21] MEDS: cloZAPine 100 MG TAB PO SCH ×2 (09:26→21:26)
[2023-01-21] MEDS: lamoTRIgine 100 MG TAB PO SCH ×2 (09:27→21:25)
[2023-01-21] MEDS: metFORMIN HCL ER 500 MG TABCR PO SCH (09:27)
[2023-01-21] MEDS: PANTOprazole 40 MG TAB PO SCH (09:28)
[2023-01-21] MEDS: QUEtiapine FUMARATE 100 MG TABLET PO SCH (09:28)
[2023-01-21] MEDS: ACETAMINOPHEN 325 MG TAB PO PRN ×2 (11:34→18:38)
[2023-01-21] MEDS: QUEtiapine FUMARATE 200 MG TAB PO SCH (21:23)
[2023-01-21] MEDS: ROSUVASTATIN CALCIUM 20 MG TAB PO SCH (21:25)
[2023-01-21] MEDS: GABAPENTIN 300 MG CAP PO SCH (21:28)
[2023-01-22] MEDS: BISMUTH SUBSALICYLATE LIQD 236 ML PO PRN ×3 (06:05→17:16)
[2023-01-22] MEDS: LEVOTHYROXINE SODIUM 175 MCG TABLET PO SCH (07:52)
[2023-01-22] MEDS: ASPIRIN 81 MG ECTAB PO SCH (08:47)
[2023-01-22] MEDS: cloZAPine 100 MG TAB PO SCH ×2 (08:48→20:57)
[2023-01-22] MEDS: CHOLECALCIFEROL 1,000 UNITS 25 MCG TAB PO SCH ×2 (08:48→20:56)
[2023-01-22] MEDS: CELECOXIB 100 MG CAP PO SCH ×2 (08:48→20:56)
[2023-01-22] MEDS: PANTOprazole 40 MG TAB PO SCH (08:49)
[2023-01-22] MEDS: metFORMIN HCL ER 500 MG TABCR PO SCH (08:49)
[2023-01-22] MEDS: lamoTRIgine 100 MG TAB PO SCH ×2 (08:49→20:57)
[2023-01-22] MEDS: cloZAPine 25 MG TAB PO SCH ×2 (08:49→20:57)
--- NOTE | 2023-01-22 09:32 | Psychiatric Progress Note ---
Date of Service January 22, 2023 Impression / Recommendations Impression 62 yo female with severe psychiatric illness since her teens classified as schizoaffective disorder, need to obtain additional collateral but reports no active hallucinations or hospitalizations for years, last inpatient [facility] a decade ago. She continues to live independently in the community with supports. Timeline for her decompensation or any suspected medication compliance is unclear and she is currently an unreliable historian. Abrupt discontinuation of her clozaril could precipitate a delirium vs. intermittent compliance triggering a manic episode vs. disorganization from breakthrough psychosis vs. underlying progression of a yet to be identified cognitive disorder. Diagnostically consistent with unspecified psychosis-unclear what has lead to recent exacerbation in symptoms and odd behaviors, if her friend is sick certainly could be due to trauma response or increased stress leading to acute exacerbation of psychosis vs hypomania given poor sleep even with multiple sedating medications. MNPR due to psychosis, recent odd behaviors, use of walker 01/22/2023: Bowel incontinence and dizziness this morning so AM seroquel was held. Initially very tearful but mood improved somewhat during the course of the day. Very perseverative and with multiple nursing requests throughout the day. Focused at times on meeting with adult basic education manager. Still some delusions but recalling more of the events prior to admission and how these were at odd's with her typical behaviors. Overall, I spent a total of 50 minutes with this case including review of chart records, direct evaluation of the patient at bedside, counseling the patient, discussion during interdisciplinary treatment rounds, risk assessment, and documentation in the electronic health record. (1) Schizoaffective disorder: Plan 01/22/2023: Continue current medications and tx plan. 01/21/2023: * Seroquel 100mg qAM --decreased from 200mg qAM on 01/21/23 * increase to Seroquel 400mg HS--increased from 300mg HS on 01/21/23 * Continue clozapine 100mg qAM and 300mg HS * Continue lamictal 200mg BID 01/20/2023: Decrease Serquel AM dose from 200mg to 100mg starting tomorrow. Will discontinue cogentin as this may also be contributing to dizziness and given prominent anticholinergic effects of clozapine and seroquel, cogentin use is redundant. Continue Seroquel 300mg HS, clozapine 100mg qAM and 300mg HS and lamictal 200mg BID. 01/19/2023: Continue current medications and tx plan. 01/18/2023: EEG read by neurologist as normal. continue current meds and monitoring. 01/17/2023: The patient was admitted to the [facility]) on q15 min checks (behavioral with suicide precautions) for safety. The patient will participate in group, recreational, and milieu therapies and will be offered additional individual and family sessions as clinically appropriate. At this point she just transitioned up to the unit following boarding in the ED so will monitor on home medications. If she had missed more than 2 days worth of clozaril protocol would have been to retitrate, may check CBC early. Limit anticholinergics. Fall risk. Inventory Assets Strengths: has social supports, accepting of services Needs: med safety plan, improve coping Suicide Risk Level Suicide Risk Level: Moderate (q15 min suicide checks) (mainly as disorganized but denies SI and feels safe in the hospital and agrees to let staff know if she feels unable to remain safe or requires additional support) Risk Factors Assessment : Yes Do You Have Access To A Gun?: No Mental Health Diagnoses: Yes Substance Use Disorders: No Previous Attempt: No Previous Psychiatric Hospitalization: Yes Protective Factors Assessment : No Employed: No Stable Relationships: Yes Interval History Identifying Information PAMELA HERRERA is a 62-year-old F who currently lives in [place], has a history of schizoaffective disorder, and was admitted on 01/17/23 12:34 on a 201 voluntary commitment for erratic behavior. Chief Complaint "I felt horrible this morning". Review of Systems Sleep Information Total Hours of Sleep: 4.5 Sleep Comments: stated she slept well; was incontinent of bowel throughout night Meal Information Percent Meal Consumed - Breakfast: 50 Percent Meal Consumed - Lunch: 100 Percent Meal Consumed - Dinner: 100 Nutrition Comment: Pt reports that she ate a later lunch, meal placed in the frig. Subjective Subjective Patient was seen & assessed and interval progress reviewed with treatment team nursing and social work. Very intrusive and irritable last evening with repeated requests. Incontinent of stool this morning and dizzy. Did not sleep well overnight per hour count but she reports sleeping "so well". This morning tearful initially due to dizziness and describing her friend dying from cancer and need to adopt her friend's daughter but later in the morning she reported no further GI symptoms and improvement of dizziness and with that improvement in her mood. She thinks she was experiencing some denise prior to admission noting " I was handing out candy to everyone in the ED" noting "who doesn't love candy". Physical Exam Psychiatric Orientation: alert, oriented x 3 and cooperative Apperance: appropriately groomed Eye Contact: good eye contact Motor Behavior: no abnormal motor movements Speech: normal rate/rhythm/volume of speech Affect: + labile affect Mood: + depressed mood and + anxious mood Thought Process: + concrete thought process Thought Content: + delusions (about friend) Suicidal Thoughts: denies suicidal thoughts Homicidal Thoughts: denies homicidal thoughts Hallucinations: no auditory hallucinations and no visual hallucinations Cognition: attention grossly intact and language grossly intact Estimated Intelligence: consistent with education level Insight: + limited insight Judgment: + limited judgement Vital Signs (Past 24 Hours) Last Vital Signs Temp 36.5 C 01/22/23 06:46 Pulse 89 01/22/23 06:46 Resp 18 01/22/23 06:46 BP 88/54 L 01/22/23 06:46 Pulse Ox 96 01/20/23 06:50 O2 Del Method Room Air 01/20/23 06:50 Results & Data (U) Current Inpatient Medications Current Inpatient Medications: Current Inpatient Medications Acetaminophen (Acetaminophen 325 Mg Tab) 650 mg PO Q4H PRN PRN Reason: Headache or Minor Fever Stop: 02/16/23 12:33 Last Admin: 01/21/23 18:38 Dose: 650 mg Acetaminophen (Acetaminophen 500 Mg Tab) 1,000 mg PO TID PRN PRN Reason: Mild Pain (Scale Score 1-4) Stop: 02/16/23 12:37 Last Admin: 01/20/23 00:28 Dose: 1,000 mg Al Hydrox/Mg Hydrox/Simethicone (Aluminum/Magnesium Susp 30 Ml Udc) 30 ml PO Q4H PRN PRN Reason: GI Upset Stop: 02/16/23 12:33 Aspirin (Aspirin 81 Mg Ectab) 81 mg PO QAM [facility] Stop: 02/17/23 08:59 Last Admin: 01/22/23 08:47 Dose: 81 mg Bismuth Subsalicylate (Bismuth Subsalicylate Liqd 236 Ml) 15 ml PO PRN PRN PRN Reason: Loose Stool Stop: 02/16/23 12:33 Last Admin: 01/22/23 06:05 Dose: 15 ml Celecoxib (Celecoxib 100 Mg Cap) 100 mg PO BID [facility] Stop: 02/16/23 20:59 Last Admin: 01/22/23 08:48 Dose: 100 mg Clozapine (Clozapine 25 Mg Tab) 50 mg PO BID [facility] Stop: 02/16/23 20:59 Last Admin: 01/22/23 08:49 Dose: 50 mg Clozapine (Clozapine 100 Mg Tab) 300 mg PO HS [facility] Stop: 02/16/23 20:59 Last Admin: 01/21/23 21:26 Dose: 300 mg Clozapine (Clozapine 100 Mg Tab) 100 mg PO QAM [facility] Stop: 02/17/23 08:59 Last Admin: 01/22/23 08:48 Dose: 100 mg Gabapentin (Gabapentin 300 Mg Cap) 300 mg PO HS [facility] Stop: 02/16/23 20:59 Last Admin: 01/21/23 21:28 Dose: 300 mg Hydroxyzine HCl (Hydroxyzine Hcl 25 Mg Tab) 50 mg PO HSZ PRN PRN Reason: Insomnia Stop: 02/16/23 12:33 Hydroxyzine HCl (Hydroxyzine Hcl 25 Mg Tab) 25 mg PO Q4H PRN PRN Reason: Anxiety Stop: 02/16/23 12:33 Lamotrigine (Lamotrigine 100 Mg Tab) 200 mg PO BID [facility] Stop: 02/16/23 20:59 Last Admin: 01/22/23 08:49 Dose: 200 mg Levothyroxine Sodium (Levothyroxine Sodium 175 Mcg Tablet) 175 mcg PO DAILYBB [facility] Stop: 02/17/23 07:59 Last Admin: 01/22/23 07:52 Dose: 175 mcg Lidocaine (Lidocaine 5% 1 Patch) 1 patch TD DAILY PRN PRN Reason: pain Stop: 02/16/23 17:29 Magnesium Hydroxide (Magnesium Hydroxide Susp 30 Ml Udc) 30 ml PO DAILY PRN PRN Reason: Constipation Stop: 02/16/23 12:33 Meclizine HCl (Meclizine Hcl 25 Mg Tab) 25 mg PO QAM PRN PRN Reason: Dizziness Stop: 02/16/23 12:37 Last Admin: 01/22/23 07:00 Dose: 25 mg Metformin HCl (Metformin Hcl Er 500 Mg Tabcr) 1,000 mg PO QAM [facility] Stop: 02/17/23 08:59 Last Admin: 01/22/23 08:49 Dose: 1,000 mg Miconazole Nitrate (Miconazole Nitrate Powder 85 Gm) 1 appln EXT TID PRN PRN Reason: rash Stop: 02/16/23 13:59 Miscellaneous (Remove Lidoderm Patch) 1 each N/A DAILY@2100 PRN PRN Reason: If patch is applied Stop: 02/16/23 17:25 Pantoprazole Sodium (Pantoprazole 40 Mg Tab) 40 mg PO QAM [facility] Stop: 02/17/23 08:59 Last Admin: 01/22/23 08:49 Dose: 40 mg Polyethylene Glycol (Polyethylene (Miralax) 17 Gm Pack) 17 gm PO DAILY PRN PRN Reason: constipation Stop: 02/16/23 12:37 Quetiapine Fumarate (Quetiapine Fumarate 100 Mg Tablet) [facility] Stop: 02/20/23 08:59 Last Admin: 01/21/23 09:28 Dose: 100 mg Quetiapine Fumarate (Quetiapine Fumarate 200 Mg Tab) 400 mg PO HS [facility] Stop: 02/20/23 21:59 Last Admin: 01/21/23 21:23 Dose: 400 mg Rosuvastatin Calcium (Rosuvastatin Calcium 20 Mg Tab) 20 mg PO HS [facility] Stop: 02/16/23 20:59 Last Admin: 01/21/23 21:25 Dose: 20 mg Sodium Chloride (Sodium Chloride 0.65% Na Soln 45 Ml ([place])) 1 - 2 sprays NA PRN PRN PRN Reason: Nasal Dryness/Congestion Stop: 02/16/23 12:33 Vitamin D (Cholecalciferol 1,000 Units 25 Mcg Tab) 1,000 units PO BID [facility] Stop: 02/16/23 20:59 Last Admin: 01/22/23 08:48 Dose: 1,000 units Mental Health & Subst Abuse Tx Therapist Name of Therapist: [facility] Operators Teacher Name of Operators Teacher: KIERRA Myers Post Discharge Appointments Primary Care Physician Name Of Family Doctor/PCP: MELINDA Primary Care Provider Appointment Comment: [address] [place] [address] Rowan Mcclure [place] [address]
[2023-01-22] MEDS: GABAPENTIN 300 MG CAP PO SCH (20:57)
[2023-01-22] MEDS: QUEtiapine FUMARATE 200 MG TAB PO SCH (20:57)
[2023-01-22] MEDS: ROSUVASTATIN CALCIUM 20 MG TAB PO SCH (20:58)
[2023-01-23] MEDS: LEVOTHYROXINE SODIUM 175 MCG TABLET PO SCH (09:11)
[2023-01-23] MEDS: CELECOXIB 100 MG CAP PO SCH ×2 (09:11→20:39)
[2023-01-23] MEDS: CHOLECALCIFEROL 1,000 UNITS 25 MCG TAB PO SCH ×2 (09:11→20:39)
[2023-01-23] MEDS: ASPIRIN 81 MG ECTAB PO SCH (09:11)
[2023-01-23] MEDS: cloZAPine 100 MG TAB PO SCH ×2 (09:12→20:41)
[2023-01-23] MEDS: PANTOprazole 40 MG TAB PO SCH (09:12)
[2023-01-23] MEDS: metFORMIN HCL ER 500 MG TABCR PO SCH (09:12)
[2023-01-23] MEDS: cloZAPine 25 MG TAB PO SCH ×2 (09:12→20:40)
[2023-01-23] MEDS: lamoTRIgine 100 MG TAB PO SCH ×2 (09:12→20:41)
[2023-01-23] MEDS: QUEtiapine FUMARATE 100 MG TABLET PO SCH (09:13)
--- NOTE | 2023-01-23 09:15 | Psychiatric Progress Note ---
Date of Service January 23, 2023 Impression / Recommendations Impression 62 yo female with severe psychiatric illness since her teens classified as schizoaffective disorder, need to obtain additional collateral but reports no active hallucinations or hospitalizations for years, last inpatient [facility] a decade ago. She continues to live independently in the community with supports. Timeline for her decompensation or any suspected medication compliance is unclear and she is currently an unreliable historian. Abrupt discontinuation of her clozaril could precipitate a delirium vs. intermittent compliance triggering a manic episode vs. disorganization from breakthrough psychosis vs. underlying progression of a yet to be identified cognitive disorder. Diagnostically consistent with unspecified psychosis-unclear what has lead to recent exacerbation in symptoms and odd behaviors, if her friend is sick certainly could be due to trauma response or increased stress leading to acute exacerbation of psychosis vs hypomania given poor sleep even with multiple sedating medications. MNPR due to psychosis, recent odd behaviors, use of walker, bowel incontinence 01/23/2023: Bowel incontinence again this morning, but then no further loose stools nor any signs of infection. Only medication adjustment so far has been adjusting timing of Seroquel which typically would lead to constipation not loosened stool. Regardless will decrease HS seroquel back to prior dose in case this is leading to excessive morning fatigue causing her to sleep through typical morning cues to use the bathroom. More likely diarrhea may be side effect of lamictal given missed doses prior to admission. Overall, I spent a total of 25 minutes with this case including review of chart records, direct evaluation of the patient at bedside, counseling the patient, discussion during interdisciplinary treatment rounds, risk assessment, and documentation in the electronic health record. (1) Schizoaffective disorder: Plan 01/23/2023: Decrease Seroquel to 300mg HS, continue with 100mg qAM, continue with clozapine and lamictal. 01/22/2023: Continue current medications and tx plan. 01/21/2023: * Seroquel 100mg qAM --decreased from 200mg qAM on 01/21/23 * increase to Seroquel 400mg HS--increased from 300mg HS on 01/21/23 * Continue clozapine 100mg qAM and 300mg HS * Continue lamictal 200mg BID 01/20/2023: Decrease Serquel AM dose from 200mg to 100mg starting tomorrow. Will discontinue cogentin as this may also be contributing to dizziness and given prominent anticholinergic effects of clozapine and seroquel, cogentin use is redundant. Continue Seroquel 300mg HS, clozapine 100mg qAM and 300mg HS and lamictal 200mg BID. 01/19/2023: Continue current medications and tx plan. 01/18/2023: EEG read by neurologist as normal. continue current meds and monitoring. 01/17/2023: The patient was admitted to the [facility] ([facility] mental health unit) on q15 min checks (behavioral with suicide precautions) for safety. The patient will participate in group, recreational, and milieu therapies and will be offered additional individual and family sessions as clinically appropriate. At this point she just transitioned up to the unit following boarding in the ED so will monitor on home medications. If she had missed more than 2 days worth of clozaril protocol would have been to retitrate, may check CBC early. Limit anticholinergics. Fall risk. Inventory Assets Strengths: has social supports, accepting of services Needs: med safety plan, improve coping Suicide Risk Level Suicide Risk Level: Moderate (q15 min suicide checks) (mainly as disorganized but denies SI and feels safe in the hospital and agrees to let staff know if she feels unable to remain safe or requires additional support) Risk Factors Assessment : Yes Do You Have Access To A Gun?: No Mental Health Diagnoses: Yes Substance Use Disorders: No Previous Attempt: No Previous Psychiatric Hospitalization: Yes Protective Factors Assessment : No Employed: No Stable Relationships: Yes Interval History Identifying Information PAMELA HERRERA is a 62-year-old F who currently lives in [place], has a history of schizoaffective disorder, and was admitted on 01/17/23 12:34 on a 201 voluntary commitment for erratic behavior. Chief Complaint "I'm sad because my good friend is leaving today". Review of Systems Sleep Information Total Hours of Sleep: 6.5 Sleep Comments: Meal Information Percent Meal Consumed - Breakfast: 75 Percent Meal Consumed - Lunch: 100 Percent Meal Consumed - Dinner: 90 Nutrition Comment: Subjective Subjective Patient was seen & assessed and interval progress reviewed with treatment team nursing and social work. Better mood last evening and slept well but this mo rning awoke with diarrhea. She expresses frustration due to waking and discovering she had bowel incontinence. But after resting this morning no further loose stools and ate pizza for lunch which she tolerated well. Less focused on friend dying today, expresses some sadness for peer who is discharging from the unit today. Physical Exam Psychiatric Orientation: alert, oriented x 3 and cooperative Apperance: appropriately groomed Eye Contact: good eye contact Motor Behavior: no abnormal motor movements Speech: normal rate/rhythm/volume of speech Affect: + labile affect Mood: + depressed mood and + anxious mood Thought Process: + concrete thought process Thought Content: + delusions (about friend, less today) Suicidal Thoughts: denies suicidal thoughts Homicidal Thoughts: denies homicidal thoughts Hallucinations: no auditory hallucinations and no visual hallucinations Cognition: attention grossly intact and language grossly intact Estimated Intelligence: consistent with education level Insight: + limited insight Judgment: + limited judgement Vital Signs (Past 24 Hours) Last Vital Signs Temp 36.9 C 01/23/23 06:43 Pulse 81 01/23/23 06:43 Resp 16 01/23/23 06:43 BP 148/83 H 01/23/23 06:43 Pulse Ox 96 01/20/23 06:50 O2 Del Method Room Air 01/20/23 06:50 Results & Data ([facility]) Current Inpatient Medications Current Inpatient Medications: Current Inpatient Medications Acetaminophen (Acetaminophen 325 Mg Tab) 650 mg PO Q4H PRN PRN Reason: Headache or Minor Fever Stop: 02/16/23 12:33 Last Admin: 01/21/23 18:38 Dose: 650 mg Acetaminophen (Acetaminophen 500 Mg Tab) 1,000 mg PO TID PRN PRN Reason: Mild Pain (Scale Score 1-4) Stop: 02/16/23 12:37 Last Admin: 01/20/23 00:28 Dose: 1,000 mg Al Hydrox/Mg Hydrox/Simethicone (Aluminum/Magnesium Susp 30 Ml Udc) 30 ml PO Q4H PRN PRN Reason: GI Upset Stop: 02/16/23 12:33 Aspirin (Aspirin 81 Mg Ectab) 81 mg PO QAM [place] Stop: 02/17/23 08:59 Last Admin: 01/23/23 09:11 Dose: 81 mg Bismuth Subsalicylate (Bismuth Subsalicylate Liqd 236 Ml) 15 ml PO PRN PRN PRN Reason: Loose Stool Stop: 02/16/23 12:33 Last Admin: 01/22/23 17:16 Dose: 15 ml Celecoxib (Celecoxib 100 Mg Cap) 100 mg PO BID [place] Stop: 02/16/23 20:59 Last Admin: 01/23/23 09:11 Dose: 100 mg Clozapine (Clozapine 25 Mg Tab) 50 mg PO BID [place] Stop: 02/16/23 20:59 Last Admin: 01/23/23 09:12 Dose: 50 mg Clozapine (Clozapine 100 Mg Tab) 300 mg PO HS DELMER Stop: 02/16/23 20:59 Last Admin: 01/22/23 20:57 Dose: 300 mg Clozapine (Clozapine 100 Mg Tab) 100 mg PO QAM [place] Stop: 02/17/23 08:59 Last Admin: 01/23/23 09:12 Dose: 100 mg Gabapentin (Gabapentin 300 Mg Cap) 300 mg PO HS DELMER Stop: 02/16/23 20:59 Last Admin: 01/22/23 20:57 Dose: 300 mg Hydroxyzine HCl (Hydroxyzine Hcl 25 Mg Tab) 50 mg PO HSZ PRN PRN Reason: Insomnia Stop: 02/16/23 12:33 Hydroxyzine HCl (Hydroxyzine Hcl 25 Mg Tab) 25 mg PO Q4H PRN PRN Reason: Anxiety Stop: 02/16/23 12:33 Lamotrigine (Lamotrigine 100 Mg Tab) 200 mg PO BID [place]MER Stop: 02/16/23 20:59 Last Admin: 01/23/23 09:12 Dose: 200 mg Levothyroxine Sodium (Levothyroxine Sodium 175 Mcg Tablet) 175 mcg PO DAILYBB DELMER Stop: 02/17/23 07:59 Last Admin: 01/23/23 09:11 Dose: 175 mcg Lidocaine (Lidocaine 5% 1 Patch) 1 patch TD DAILY PRN PRN Reason: pain Stop: 02/16/23 17:29 Magnesium Hydroxide (Magnesium Hydroxide Susp 30 Ml Udc) 30 ml PO DAILY PRN PRN Reason: Constipation Stop: 02/16/23 12:33 Meclizine HCl (Meclizine Hcl 25 Mg Tab) 25 mg PO QAM PRN PRN Reason: Dizziness Stop: 02/16/23 12:37 Last Admin: 01/22/23 07:00 Dose: 25 mg Metformin HCl (Metformin Hcl Er 500 Mg Tabcr) 1,000 mg PO QAM DELMER Stop: 02/17/23 08:59 Last Admin: 01/23/23 09:12 Dose: 1,000 mg Miconazole Nitrate (Miconazole Nitrate Powder 85 Gm) 1 appln EXT TID PRN PRN Reason: rash Stop: 02/16/23 13:59 Miscellaneous (Remove Lidoderm Patch) 1 each N/A DAILY@2100 PRN PRN Reason: If patch is applied Stop: 02/16/23 17:25 Pantoprazole Sodium (Pantoprazole 40 Mg Tab) 40 mg PO QAM [facility] Stop: 02/17/23 08:59 Last Admin: 01/23/23 09:12 Dose: 40 mg Polyethylene Glycol (Polyethylene (Miralax) 17 Gm Pack) 17 gm PO DAILY PRN PRN Reason: constipation Stop: 02/16/23 12:37 Quetiapine Fumarate (Quetiapine Fumarate 100 Mg Tablet) 100 mg PO QAM [place] Stop: 02/20/23 08:59 Last Admin: 01/23/23 09:13 Dose: 100 mg Quetiapine Fumarate (Quetiapine Fumarate 200 Mg Tab) 400 mg PO HS [facility] Stop: 02/20/23 21:59 Last Admin: 01/22/23 20:57 Dose: 400 mg Rosuvastatin Calcium (Rosuvastatin Calcium 20 Mg Tab) 20 mg PO HS DELMER Stop: 02/16/23 20:59 Last Admin: 01/22/23 20:58 Dose: 20 mg Sodium Chloride (Sodium Chloride 0.65% Na Soln 45 Ml ([place])) 1 - 2 sprays NA PRN PRN PRN Reason: Nasal Dryness/Congestion Stop: 02/16/23 12:33 Vitamin D (Cholecalciferol 1,000 Units 25 Mcg Tab) 1,000 units PO BID DELMER Stop: 02/16/23 20:59 Last Admin: 01/23/23 09:11 Dose: 1,000 units Mental Health & Subst Abuse Tx Therapist Name of Therapist: [facility] Treater Helper Name of Treater Helper: KIERRA Myers Post Discharge Appointments Primary Care Physician Name Of Family Doctor/PCP: MELINDA Primary Care Provider Appointment Comment: [address] [place] [address] Rowan Mcclure, RASHAD [facility]
[2023-01-23] MEDS: GABAPENTIN 300 MG CAP PO SCH (20:43)
[2023-01-23] MEDS: ROSUVASTATIN CALCIUM 20 MG TAB PO SCH (20:44)
[2023-01-23] MEDS: QUEtiapine FUMARATE 300 MG TABLET PO SCH (20:44)
[2023-01-24] MEDS: lamoTRIgine 100 MG TAB PO SCH ×2 (08:31→20:59)
[2023-01-24] MEDS: metFORMIN HCL ER 500 MG TABCR PO SCH (08:32)
[2023-01-24] MEDS: ASPIRIN 81 MG ECTAB PO SCH (08:32)
[2023-01-24] MEDS: CELECOXIB 100 MG CAP PO SCH ×2 (08:32→21:00)
[2023-01-24] MEDS: PANTOprazole 40 MG TAB PO SCH (08:32)
[2023-01-24] MEDS: cloZAPine 100 MG TAB PO SCH ×2 (08:32→20:58)
[2023-01-24] MEDS: CHOLECALCIFEROL 1,000 UNITS 25 MCG TAB PO SCH ×2 (08:32→21:00)
[2023-01-24] MEDS: LEVOTHYROXINE SODIUM 175 MCG TABLET PO SCH (08:32)
[2023-01-24] MEDS: cloZAPine 25 MG TAB PO SCH ×2 (08:32→20:59)
[2023-01-24] MEDS: QUEtiapine FUMARATE 100 MG TABLET PO SCH (08:33)
[2023-01-24 08:39] LABS: Basophils # (auto) 0.04 K/uL (0.00-0.20); Basophils % (auto) 0.8 %; Eosinophils # (auto) 0.11 K/uL (0.00-0.50); Eosinophils % (auto) 2.3 %; Hematocrit (blood only) 31.3 % (37.0-47.0); Hemoglobin 10.3 g/dl (12.0-16.0); Immature Granulocytes # (auto) 0.02 K/uL (0.01-0.20); Immature Granulocytes % (auto) 0.4 %; Lymphocytes # (auto) 0.98 K/uL (1.20-3.40); Lymphocytes % (auto) 20.1 %; Mean Corpuscular Hemoglobin 30.3 pg (25.0-34.0); Mean Corpuscular Hgb Conc 32.9 g/dL (32.0-36.0); Mean Corpuscular Volume 92.1 fL (80.0-100.0); Mean Platelet Volume 9.3 fL (9.4-12.4); Monocytes # (auto) 0.32 K/uL (0.11-0.59); Monocytes % (auto) 6.6 %; Neutrophils % (auto) 69.8 %; Platelet Count 252 K/uL (130-400); RDW Standard Deviation 47.4 fL (36.4-46.3); White Blood Count 4.87 K/ul (4.8-10.8)
--- NOTE | 2023-01-24 09:17 | Psychiatric Progress Note ---
Date of Service January 24, 2023 Impression / Recommendations Impression 62 yo female with severe psychiatric illness since her teens classified as schizoaffective disorder, need to obtain additional collateral but reports no active hallucinations or hospitalizations for years, last inpatient [facility] a decade ago. She continues to live independently in the community with supports. Timeline for her decompensation or any suspected medication compliance is unclear and she is currently an unreliable historian. Abrupt discontinuation of her clozaril could precipitate a delirium vs. intermittent compliance triggering a manic episode vs. disorganization from breakthrough psychosis vs. underlying progression of a yet to be identified cognitive disorder. Diagnostically consistent with unspecified psychosis-unclear what has lead to recent exacerbation in symptoms and odd behaviors, if her friend is sick certainly could be due to trauma response or increased stress leading to acute exacerbation of psychosis vs hypomania given poor sleep even with multiple sedating medications. MNPR due to psychosis, recent odd behaviors, use of walker, bowel incontinence 01/24/2023: No bowel incontinence today, mood stabilizing. Still with sleep <6 hours. Per outpt CM she is moving closer to her baseline. CBC reviewed and ANC stable and appropriate to continue with clozapine. Overall, I spent a total of 35 minutes with this case including review of chart records, direct evaluation of the patient at bedside, counseling the patient, discussion during interdisciplinary treatment rounds, risk assessment, review of labwork, discussion with her outpatient CM and documentation in the electronic health record. (1) Schizoaffective disorder: Plan 01/24/2023: Continue current medications and tx plan. 01/23/2023: Decrease Seroquel to 300mg HS, continue with 100mg qAM, continue with clozapine and lamictal. 01/22/2023: Continue current medications and tx plan. 01/21/2023: * Seroquel 100mg qAM --decreased from 200mg qAM on 01/21/23 * increase to Seroquel 400mg HS--increased from 300mg HS on 01/21/23 * Continue clozapine 100mg qAM and 300mg HS * Continue lamictal 200mg BID 01/20/2023: Decrease Serquel AM dose from 200mg to 100mg starting tomorrow. Will discontinue cogentin as this may also be contributing to dizziness and given prominent anticholinergic effects of clozapine and seroquel, cogentin use is redundant. Continue Seroquel 300mg HS, clozapine 100mg qAM and 300mg HS and lamictal 200mg BID. 01/19/2023: Continue current medications and tx plan. 01/18/2023: EEG read by neurologist as normal. continue current meds and monitoring. 01/17/2023: The patient was admitted to the [facility] ([facility] mental health unit) on q15 min checks (behavioral with suicide precautions) for safety. The patient will participate in group, recreational, and milieu therapies and will be offered additional individual and family sessions as clinically appropriate. At this point she just transitioned up to the unit following boarding in the ED so will monitor on home medications. If she had missed more than 2 days worth of clozaril protocol would have been to retitrate, may check CBC early. Limit anticholinergics. Fall risk. Inventory Assets Strengths: has social supports, accepting of services Needs: med safety plan, improve coping Suicide Risk Level Suicide Risk Level: Moderate (q15 min suicide checks) (mainly as disorganized but denies SI and feels safe in the hospital and agrees to let staff know if she feels unable to remain safe or requires additional support) Risk Factors Assessment : Yes Do You Have Access To A Gun?: No Mental Health Diagnoses: Yes Substance Use Disorders: No Previous Attempt: No Previous Psychiatric Hospitalization: Yes Protective Factors Assessment : No Employed: No Stable Relationships: Yes Interval History Identifying Information PAMELA HERRERA is a 62-year-old F who currently lives in [place], has a history of schizoaffective disorder, and was admitted on 01/17/23 12:34 on a 201 voluntary commitment for erratic behavior. Chief Complaint "I had the best breakfast". Review of Systems Sleep Information Total Hours of Sleep: 5.5 Meal Information Percent Meal Consumed - Breakfast: 50 Percent Meal Consumed - Lunch: 90 Percent Meal Consumed - Dinner: 100 Subjective Subjective Patient was seen & assessed and interval progress reviewed with treatment team nursing and social work. No bowel incontinence this morning. Reports her mood is "good". Met with her case filler who feels she is getting closer to her baseline. No medication side effects. Still with limited sleep. Physical Exam Psychiatric Orientation: alert, oriented x 3 and cooperative Apperance: appropriately groomed Eye Contact: good eye contact Motor Behavior: no abnormal motor movements Speech: normal rate/rhythm/volume of speech Affect: euthymic affect Mood: + anxious mood Thought Process: + concrete thought process Thought Content: + delusions (about friend, less today) Suicidal Thoughts: denies suicidal thoughts Homicidal Thoughts: denies homicidal thoughts Hallucinations: no auditory hallucinations and no visual hallucinations Cognition: attention grossly intact and language grossly intact Estimated Intelligence: consistent with education level Insight: + limited insight Judgment: + limited judgement Vital Signs (Past 24 Hours) Last Vital Signs Temp 36.3 C L 01/24/23 06:29 Pulse 75 01/24/23 06:29 Resp 20 01/24/23 06:29 BP 119/78 01/24/23 06:29 Pulse Ox 98 01/24/23 06:29 O2 Del Method Room Air 01/24/23 06:29 Results & Data ([facility]) Laboratory Results Laboratory Results - last 24 hr 01/24/23 08:09 WBC 4.87 RBC 3.40 L Hgb 10.3 L Hct 31.3 L MCV 92.1 MCH 30.3 MCHC 32.9 RDW Std Deviation 47.4 H RDW Coeff of Radha 14.0 Plt Count 252 MPV 9.3 L Immature Gran % (Auto) 0.4 Neut % (Auto) 69.8 Lymph % (Auto) 20.1 [place] % (Auto) 6.6 Eos % (Auto) 2.3 Baso % (Auto) 0.8 Neut # (Auto) 3.40 Lymph # (Auto) 0.98 L [place] # (Auto) 0.32 Eos # (Auto) 0.11 Baso # (Auto) 0.04 Immature Gran # (Auto) 0.02 Current Inpatient Medications Current Inpatient Medications: Current Inpatient Medications Acetaminophen (Acetaminophen 325 Mg Tab) 650 mg PO Q4H PRN PRN Reason: Headache or Minor Fever Stop: 02/16/23 12:33 Last Admin: 01/21/23 18:38 Dose: 650 mg Acetaminophen (Acetaminophen 500 Mg Tab) 1,000 mg PO TID PRN PRN Reason: Mild Pain (Scale Score 1-4) Stop: 02/16/23 12:37 Last Admin: 01/20/23 00:28 Dose: 1,000 mg Al Hydrox/Mg Hydrox/Simethicone (Aluminum/Magnesium Susp 30 Ml Udc) 30 ml PO Q4H PRN PRN Reason: GI Upset Stop: 02/16/23 12:33 Aspirin (Aspirin 81 Mg Ectab) 81 mg PO QAM [facility] Stop: 02/17/23 08:59 Last Admin: 01/24/23 08:32 Dose: 81 mg Bismuth Subsalicylate (Bismuth Subsalicylate Liqd 236 Ml) 15 ml PO PRN PRN PRN Reason: Loose Stool Stop: 02/16/23 12:33 Last Admin: 01/22/23 17:16 Dose: 15 ml Celecoxib (Celecoxib 100 Mg Cap) 100 mg PO BID [facility] Stop: 02/16/23 20:59 Last Admin: 01/24/23 08:32 Dose: 100 mg Clozapine (Clozapine 25 Mg Tab) 50 mg PO BID [facility] Stop: 02/16/23 20:59 Last Admin: 01/24/23 08:32 Dose: 50 mg Clozapine (Clozapine 100 Mg Tab) 300 mg PO HS [facility] Stop: 02/16/23 20:59 Last Admin: 01/23/23 20:41 Dose: 300 mg Clozapine (Clozapine 100 Mg Tab) 100 mg PO QAM [facility] Stop: 02/17/23 08:59 Last Admin: 01/24/23 08:32 Dose: 100 mg Gabapentin (Gabapentin 300 Mg Cap) 300 mg PO HS [facility] Stop: 02/16/23 20:59 Last Admin: 01/23/23 20:43 Dose: 300 mg Hydroxyzine HCl (Hydroxyzine Hcl 25 Mg Tab) 50 mg PO HSZ PRN PRN Reason: Insomnia Stop: 02/16/23 12:33 Hydroxyzine HCl (Hydroxyzine Hcl 25 Mg Tab) 25 mg PO Q4H PRN PRN Reason: Anxiety Stop: 02/16/23 12:33 Lamotrigine (Lamotrigine 100 Mg Tab) 200 mg PO BID [facility] Stop: 02/16/23 20:59 Last Admin: 01/24/23 08:31 Dose: 200 mg Levothyroxine Sodium (Levothyroxine Sodium 175 Mcg Tablet) 175 mcg PO DAILYBB [facility] Stop: 02/17/23 07:59 Last Admin: 01/24/23 08:32 Dose: 175 mcg Lidocaine (Lidocaine 5% 1 Patch) 1 patch TD DAILY PRN PRN Reason: pain Stop: 02/16/23 17:29 Magnesium Hydroxide (Magnesium Hydroxide Susp 30 Ml Udc) 30 ml PO DAILY PRN PRN Reason: Constipation Stop: 02/16/23 12:33 Meclizine HCl (Meclizine Hcl 25 Mg Tab) 25 mg PO QAM PRN PRN Reason: Dizziness Stop: 02/16/23 12:37 Last Admin: 01/22/23 07:00 Dose: 25 mg Metformin HCl (Metformin Hcl Er 500 Mg Tabcr) 1,000 mg PO QAM [place] Stop: 02/17/23 08:59 Last Admin: 01/24/23 08:32 Dose: 1,000 mg Miconazole Nitrate (Miconazole Nitrate Powder 85 Gm) 1 appln EXT TID PRN PRN Reason: rash Stop: 02/16/23 13:59 Miscellaneous (Remove Lidoderm Patch) 1 each N/A DAILY@2100 PRN PRN Reason: If patch is applied Stop: 02/16/23 17:25 Pantoprazole Sodium (Pantoprazole 40 Mg Tab) 40 mg PO QAM [place] Stop: 02/17/23 08:59 Last Admin: 01/24/23 08:32 Dose: 40 mg Polyethylene Glycol (Polyethylene (Miralax) 17 Gm Pack) 17 gm PO DAILY PRN PRN Reason: constipation Stop: 02/16/23 12:37 Quetiapine Fumarate (Quetiapine Fumarate 100 Mg Tablet) 100 mg PO QAM [place] Stop: 02/20/23 08:59 Last Admin: 01/24/23 08:33 Dose: 100 mg Quetiapine Fumarate (Quetiapine Fumarate 300 Mg Tablet) 300 mg PO [facility] Stop: 02/22/23 21:59 Last Admin: 01/23/23 20:44 Dose: 300 mg Rosuvastatin Calcium (Rosuvastatin Calcium 20 Mg Tab) 20 mg PO [facility] Stop: 02/16/23 20:59 Last Admin: 01/23/23 20:44 Dose: 20 mg Sodium Chloride (Sodium Chloride 0.65% Na Soln 45 Ml ([place])) 1 - 2 sprays NA PRN PRN PRN Reason: Nasal Dryness/Congestion Stop: 02/16/23 12:33 Vitamin D (Cholecalciferol 1,000 Units 25 Mcg Tab) 1,000 units PO BID [place]MER Stop: 02/16/23 20:59 Last Admin: 01/24/23 08:32 Dose: 1,000 units Mental Health & Subst Abuse Tx Therapist Name of Therapist: [facility] Sat Math Tutor Name of Sat Math Tutor: KIERRA Myers Post Discharge Appointments Primary Care Physician Name Of Family Doctor/PCP: MELINDA Primary Care Provider Appointment Comment: [address], RASHAD [address] Specialist Name of Specialist: [facility] - Orthopaedics Phone Number for Specialist: [phone] Specialty Appointment Comment: [address], [address], [place] [address]
[2023-01-24] MEDS: ROSUVASTATIN CALCIUM 20 MG TAB PO SCH (20:58)
[2023-01-24] MEDS: GABAPENTIN 300 MG CAP PO SCH (20:59)
[2023-01-24] MEDS: QUEtiapine FUMARATE 300 MG TABLET PO SCH (20:59)
[2023-01-25] MEDS: ACETAMINOPHEN 500 MG TAB PO PRN (07:26)
[2023-01-25] MEDS: ASPIRIN 81 MG ECTAB PO SCH (09:05)
[2023-01-25] MEDS: LEVOTHYROXINE SODIUM 175 MCG TABLET PO SCH (09:05)
[2023-01-25] MEDS: CHOLECALCIFEROL 1,000 UNITS 25 MCG TAB PO SCH ×2 (09:06→20:54)
[2023-01-25] MEDS: CELECOXIB 100 MG CAP PO SCH ×2 (09:06→20:53)
[2023-01-25] MEDS: cloZAPine 25 MG TAB PO SCH ×2 (09:06→20:54)
[2023-01-25] MEDS: lamoTRIgine 100 MG TAB PO SCH ×2 (09:07→20:55)
[2023-01-25] MEDS: QUEtiapine FUMARATE 100 MG TABLET PO SCH (09:07)
[2023-01-25] MEDS: metFORMIN HCL ER 500 MG TABCR PO SCH (09:07)
[2023-01-25] MEDS: PANTOprazole 40 MG TAB PO SCH (09:07)
--- NOTE | 2023-01-25 09:12 | Psychiatric Progress Note ---
Date of Service January 25, 2023 Impression / Recommendations Impression 62 yo female with severe psychiatric illness since her teens classified as schizoaffective disorder, need to obtain additional collateral but reports no active hallucinations or hospitalizations for years, last inpatient [facility] a decade ago. She continues to live independently in the community with supports. Timeline for her decompensation or any suspected medication compliance is unclear and she is currently an unreliable historian. Abrupt discontinuation of her clozaril could precipitate a delirium vs. intermittent compliance triggering a manic episode vs. disorganization from breakthrough psychosis vs. underlying progression of a yet to be identified cognitive disorder. Diagnostically consistent with unspecified psychosis-unclear what has lead to recent exacerbation in symptoms and odd behaviors, if her friend is sick certainly could be due to trauma response or increased stress leading to acute exacerbation of psychosis vs hypomania given poor sleep even with multiple sedating medications. MNPR due to psychosis, recent odd behaviors, use of walker, bowel incontinence 01/25/2023: Mood improving, still with reported less than 6 hours of sleep but no signs of denise nor hypomania. Less irritable overall, fewer needs from staff and more organized in caring for her needs during the day. Significant less dizziness and fatigue in the morning since reduction of Seroquel dose and no further episodes of bowel incontinence. Overall, I spent a total of 35 minutes with this case including review of chart records, direct evaluation of the patient at bedside, counseling the patient, discussion during interdisciplinary treatment rounds, risk assessment, ordering her medication to allow outpatient pharmacy time to bubble pack it, and documentation in the electronic health record. (1) Schizoaffective disorder: Plan 01/25/2023: Continue current medications and tx plan. * Seroquel 100mg qAM --decreased from 200mg qAM on 01/21/23 * Seroquel 300mg HS--prior to admission HS dose * Continue clozapine 150mg qAM and 350mg HS * Continue lamictal 200mg BID 01/24/2023: Continue current medications and tx plan. 01/23/2023: Decrease Seroquel to 300mg HS, continue with 100mg qAM, continue with clozapine and lamictal. 01/22/2023: Continue current medications and tx plan. 01/21/2023: * Seroquel 100mg qAM --decreased from 200mg qAM on 01/21/23 * increase to Seroquel 400mg HS--increased from 300mg HS on 01/21/23 * Continue clozapine 100mg qAM and 300mg HS * Continue lamictal 200mg BID 01/20/2023: Decrease Serquel AM dose from 200mg to 100mg starting tomorrow. Will discontinue cogentin as this may also be contributing to dizziness and given prominent anticholinergic effects of clozapine and seroquel, cogentin use is redundant. Continue Seroquel 300mg HS, clozapine 100mg qAM and 300mg HS and lamictal 200mg BID. 01/19/2023: Continue current medications and tx plan. 01/18/2023: EEG read by neurologist as normal. continue current meds and monitoring. 01/17/2023: The patient was admitted to the [facility] ([facility] mental health unit) on q15 min checks (behavioral with suicide precautions) for safety. The patient will participate in group, recreational, and milieu therapies and will be offered additional individual and family sessions as clinically appropriate. At this point she just transitioned up to the unit following boarding in the ED so will monitor on home medications. If she had missed more than 2 days worth of clozaril protocol would have been to retitrate, may check CBC early. Limit anticholinergics. Fall risk. Inventory Assets Strengths: has social supports, accepting of services Needs: med safety plan, improve coping Suicide Risk Level Suicide Risk Level: Moderate (q15 min suicide checks) (mainly as disorganized but has been consistently denying SI, mood improving and feels safe in the hospital and agrees to let staff know if she feels unable to remain safe or requires additional support) Risk Factors Assessment : Yes Do You Have Access To A Gun?: No Mental Health Diagnoses: Yes Substance Use Disorders: No Previous Attempt: No Previous Psychiatric Hospitalization: Yes Protective Factors Assessment : No Employed: No Stable Relationships: Yes Interval History Identifying Information PAMELA HERRERA is a 62-year-old F who currently lives in [place], has a history of schizoaffective disorder, and was admitted on 01/17/23 12:34 on a 201 voluntary commitment for erratic behavior. Chief Complaint "I'm good". Review of Systems Sleep Information Total Hours of Sleep: 5.5 Sleep Comments: Meal Information Percent Meal Consumed - Breakfast: 100 Percent Meal Consumed - Lunch: 100 Percent Meal Consumed - Dinner: 100 Subjective Subjective Patient was seen & assessed and interval progress reviewed with treatment team nursing and social work. Engaging in groups, less needs from staff, becoming more organized and independent in attending to self-care and meals. Denies any medication side effects. Future-oriented about her upcoming move noting her excitement about this. No new medication side effects. Physical Exam Psychiatric Orientation: alert, oriented x 3 and cooperative Apperance: appropriately groomed Eye Contact: good eye contact Motor Behavior: no abnormal motor movements Speech: normal rate/rhythm/volume of speech Affect: euthymic affect Mood: no anxious mood Thought Process: + concrete thought process Thought Content: reality based without delusions Suicidal Thoughts: denies suicidal thoughts Homicidal Thoughts: denies homicidal thoughts Hallucinations: no auditory hallucinations and no visual hallucinations Cognition: attention grossly intact and language grossly intact Estimated Intelligence: consistent with education level Insight: + limited insight Judgment: + limited judgement Vital Signs (Past 24 Hours) Last Vital Signs Temp 36.6 C 01/25/23 06:38 Pulse 80 01/25/23 06:38 Resp 20 01/25/23 06:38 BP 123/78 01/25/23 06:38 Pulse Ox 99 01/25/23 06:38 O2 Del Method Room Air 01/25/23 06:38 Results & Data ([facility]) Current Inpatient Medications Current Inpatient Medications: Current Inpatient Medications Acetaminophen (Acetaminophen 325 Mg Tab) 650 mg PO Q4H PRN PRN Reason: Headache or Minor Fever Stop: 02/16/23 12:33 Last Admin: 01/21/23 18:38 Dose: 650 mg Acetaminophen (Acetaminophen 500 Mg Tab) 1,000 mg PO TID PRN PRN Reason: Mild Pain (Scale Score 1-4) Stop: 02/16/23 12:37 Last Admin: 01/25/23 07:26 Dose: 1,000 mg Al Hydrox/Mg Hydrox/Simethicone (Aluminum/Magnesium Susp 30 Ml Udc) 30 ml PO Q4H PRN PRN Reason: GI Upset Stop: 02/16/23 12:33 Aspirin (Aspirin 81 Mg Ectab) 81 mg PO QAM [facility]MER Stop: 02/17/23 08:59 Last Admin: 01/25/23 09:05 Dose: 81 mg Bismuth Subsalicylate (Bismuth Subsalicylate Liqd 236 Ml) 15 ml PO PRN PRN PRN Reason: Loose Stool Stop: 02/16/23 12:33 Last Admin: 01/22/23 17:16 Dose: 15 ml Celecoxib (Celecoxib 100 Mg Cap) 100 mg PO BID DELMER Stop: 02/16/23 20:59 Last Admin: 01/25/23 09:06 Dose: 100 mg Clozapine (Clozapine 25 Mg Tab) 50 mg PO BID DELMER Stop: 02/16/23 20:59 Last Admin: 01/25/23 09:06 Dose: 50 mg Clozapine (Clozapine 100 Mg Tab) 300 mg PO HS DELMER Stop: 02/16/23 20:59 Last Admin: 01/24/23 20:58 Dose: 300 mg Clozapine (Clozapine 100 Mg Tab) 100 mg PO QAM [facility]MER Stop: 02/17/23 08:59 Last Admin: 01/24/23 08:32 Dose: 100 mg Gabapentin (Gabapentin 300 Mg Cap) 300 mg PO HS DELMER Stop: 02/16/23 20:59 Last Admin: 01/24/23 20:59 Dose: 300 mg Hydroxyzine HCl (Hydroxyzine Hcl 25 Mg Tab) 50 mg PO HSZ PRN PRN Reason: Insomnia Stop: 02/16/23 12:33 Hydroxyzine HCl (Hydroxyzine Hcl 25 Mg Tab) 25 mg PO Q4H PRN PRN Reason: Anxiety Stop: 02/16/23 12:33 Lamotrigine (Lamotrigine 100 Mg Tab) 200 mg PO BID DELMER Stop: 02/16/23 20:59 Last Admin: 01/25/23 09:07 Dose: 200 mg Levothyroxine Sodium (Levothyroxine Sodium 175 Mcg Tablet) 175 mcg PO DAILYBB [facility] Stop: 02/17/23 07:59 Last Admin: 01/25/23 09:05 Dose: 175 mcg Lidocaine (Lidocaine 5% 1 Patch) 1 patch TD DAILY PRN PRN Reason: pain Stop: 02/16/23 17:29 Magnesium Hydroxide (Magnesium Hydroxide Susp 30 Ml Udc) 30 ml PO DAILY PRN PRN Reason: Constipation Stop: 02/16/23 12:33 Meclizine HCl (Meclizine Hcl 25 Mg Tab) 25 mg PO QAM PRN PRN Reason: Dizziness Stop: 02/16/23 12:37 Last Admin: 01/22/23 07:00 Dose: 25 mg Metformin HCl (Metformin Hcl Er 500 Mg Tabcr) 1,000 mg PO QAM DELMER Stop: 02/17/23 08:59 Last Admin: 01/25/23 09:07 Dose: 1,000 mg Miconazole Nitrate (Miconazole Nitrate Powder 85 Gm) 1 appln EXT TID PRN PRN Reason: rash Stop: 02/16/23 13:59 Miscellaneous (Remove Lidoderm Patch) 1 each N/A DAILY@2100 PRN PRN Reason: If patch is applied Stop: 02/16/23 17:25 Pantoprazole Sodium (Pantoprazole 40 Mg Tab) 40 mg PO QAM [facility]MER Stop: 02/17/23 08:59 Last Admin: 01/25/23 09:07 Dose: 40 mg Polyethylene Glycol (Polyethylene (Miralax) 17 Gm Pack) 17 gm PO DAILY PRN PRN Reason: constipation Stop: 02/16/23 12:37 Quetiapine Fumarate (Quetiapine Fumarate 100 Mg Tablet) 100 mg PO QAM [facility] Stop: 02/20/23 08:59 Last Admin: 01/25/23 09:07 Dose: 100 mg Quetiapine Fumarate (Quetiapine Fumarate 300 Mg Tablet) 300 mg PO HS DELMER Stop: 02/22/23 21:59 Last Admin: 01/24/23 20:59 Dose: 300 mg Rosuvastatin Calcium (Rosuvastatin Calcium 20 Mg Tab) 20 mg PO HS DELMER Stop: 02/16/23 20:59 Last Admin: 01/24/23 20:58 Dose: 20 mg Sodium Chloride (Sodium Chloride 0.65% Na Soln 45 Ml (Collin)) 1 - 2 sprays NA PRN PRN PRN Reason: Nasal Dryness/Congestion Stop: 02/16/23 12:33 Vitamin D (Cholecalciferol 1,000 Units 25 Mcg Tab) 1,000 units PO BID DELMER Stop: 02/16/23 20:59 Last Admin: 01/25/23 09:06 Dose: 1,000 units Mental Health & Subst Abuse Tx Psychiatrist Name of Psychiatrist: Maia Chavez Psychiatrist's Date Of Appointment With Psychiatric Provider: 01/30/2023 Time of Appointment with Psychiatrist: 1:30pm Psychiatric Appointment Comment: [address] [place] [id number] Therapist Name of Therapist: [facility] Appointment Comment: please resume normal schedule Museum Exhibit Technician Name of Museum Exhibit Technician: KIERRA Myers Case Management Appointment Comment: please resume normal schedule Post Discharge Appointments Primary Care Physician Name Of Family Doctor/PCP: MELINDA [facility] Date of Future Appointment with PCP: 02/11/2023 Time of Appointment with PCP: 1pm Provider Appointment Comment: [facility] [place] [address] Specialist Name of Specialist: [facility] Phone Number for Specialist: [phone] Date of Appointment with Specialist: 01/28/23 Time of Appointment with Specialist: 1:45 PM Specialty Appointment Comment: [address], [address], [place] [address]
[2023-01-25] MEDS: cloZAPine 100 MG TAB PO SCH ×2 (09:49→20:56)
[2023-01-25] MEDS: GABAPENTIN 300 MG CAP PO SCH (20:57)
[2023-01-25] MEDS: QUEtiapine FUMARATE 300 MG TABLET PO SCH (20:59)
[2023-01-25] MEDS: ROSUVASTATIN CALCIUM 20 MG TAB PO SCH (21:00)
[2023-01-26] MEDS: LEVOTHYROXINE SODIUM 175 MCG TABLET PO SCH (07:33)
[2023-01-26] MEDS: ACETAMINOPHEN 500 MG TAB PO PRN (07:51)
[2023-01-26] MEDS: CELECOXIB 100 MG CAP PO SCH ×2 (09:13→21:18)
[2023-01-26] MEDS: ASPIRIN 81 MG ECTAB PO SCH (09:13)
[2023-01-26] MEDS: QUEtiapine FUMARATE 100 MG TABLET PO SCH (09:14)
[2023-01-26] MEDS: PANTOprazole 40 MG TAB PO SCH (09:14)
[2023-01-26] MEDS: metFORMIN HCL ER 500 MG TABCR PO SCH (09:14)
[2023-01-26] MEDS: cloZAPine 25 MG TAB PO SCH ×2 (09:14→21:18)
[2023-01-26] MEDS: cloZAPine 100 MG TAB PO SCH ×2 (09:14→21:19)
[2023-01-26] MEDS: lamoTRIgine 100 MG TAB PO SCH ×2 (09:14→21:18)
[2023-01-26] MEDS: CHOLECALCIFEROL 1,000 UNITS 25 MCG TAB PO SCH ×2 (09:14→21:18)
--- NOTE | 2023-01-26 10:15 | Psychiatric Progress Note ---
Date of Service January 26, 2023 Impression / Recommendations Impression 62 yo female with severe psychiatric illness since her teens classified as schizoaffective disorder, need to obtain additional collateral but reports no active hallucinations or hospitalizations for years, last inpatient [facility] a decade ago. She continues to live independently in the community with supports. Timeline for her decompensation or any suspected medication compliance is unclear and she is currently an unreliable historian. Abrupt discontinuation of her clozaril could precipitate a delirium vs. intermittent compliance triggering a manic episode vs. disorganization from breakthrough psychosis vs. underlying progression of a yet to be identified cognitive disorder. Diagnostically consistent with unspecified psychosis-unclear what has lead to recent exacerbation in symptoms and odd behaviors, if her friend is sick certainly could be due to trauma response or increased stress leading to acute exacerbation of psychosis vs hypomania given poor sleep even with multiple sedating medications. MNPR due to psychosis, recent odd behaviors, use of walker, bowel incontinence 01/26/2023: Has been less manic, with less disorganized behavior. Pt speaks at some length about her frustrations with each of her medications, asking if there were an alternative for each one, then also saying that she thinks she has benefitted from each one and "should probably keep taking" each of them. She isn't really able to articulate any specific or concrete concerns about any of her medications. She is perseverative about her belief that someone "messed up the Lamictal" but asks me what I think the problem with it was. She feels strongly that she ended up in the hospital due to some sort of issue with lamotrigine rather than with clozapine, though symptoms strongly suggest she'd stopped the clozapine. Pt repeats many times that she's "62 years old", implying that's an advanced age and saying I couldn't possibly comprehend what it might be like to be that age (even after I told her that I turned 62 today and that clearly different people experience various ages differently). In reviewing records, I note that the most recent vitamin D level, of 28.7 ng/mL, was in 2020 (which may have been when vitamin D deficiency was diagnosed). Pt is not interested in a follow-up level. 01/25/2023: Mood improving, still with reported less than 6 hours of sleep but no signs of denise nor hypomania. Less irritable overall, fewer needs from staff and more organized in caring for her needs during the day. Significant less dizziness and fatigue in the morning since reduction of Seroquel dose and no further episodes of bowel incontinence. (1) Schizoaffective disorder: Plan 01/26/2023: * continue quetiapine 100 mg QAM & 300 mg QHS - decreased from prior to adm ission dose of 200 mg QAM & 300 mg QHS on 01/21/23 * Continue clozapine 150 mg QAM & 350 mg QHS - prior to admission dose * Continue lamotrigine 200 mg BID - prior to admission dose * anticipate discharge 2-3 days 01/25/2023: Continue current medications and tx plan. * Seroquel 100mg qAM --decreased from 200mg qAM on 01/21/23 * Seroquel 300mg HS--prior to admission HS dose * Continue clozapine 150mg qAM and 350mg HS * Continue lamictal 200mg BID 01/24/2023: Continue current medications and tx plan. 01/23/2023: Decrease Seroquel to 300mg HS, continue with 100mg qAM, continue with clozapine and lamictal. 01/22/2023: Continue current medications and tx plan. 01/21/2023: * Seroquel 100mg qAM --decreased from 200mg qAM on 01/21/23 * increase to Seroquel 400mg HS--increased from 300mg HS on 01/21/23 * Continue clozapine 100mg qAM and 300mg HS * Continue lamictal 200mg BID 01/20/2023: Decrease Serquel AM dose from 200mg to 100mg starting tomorrow. Will discontinue cogentin as this may also be contributing to dizziness and given prominent anticholinergic effects of clozapine and seroquel, cogentin use is redundant. Continue Seroquel 300mg HS, clozapine 100mg qAM and 300mg HS and lamictal 200mg BID. 01/19/2023: Continue current medications and tx plan. 01/18/2023: EEG read by neurologist as normal. continue current meds and monitoring. 01/17/2023: The patient was admitted to the [facility] ([facility] health unit) on q15 min checks (behavioral with suicide precautions) for safety. The patient will participate in group, recreational, and milieu therapies and will be offered additional individual and family sessions as clinically appropriate. At this point she just transitioned up to the unit following boarding in the ED so will monitor on home medications. If she had missed more than 2 days worth of clozaril protocol would have been to retitrate, may check CBC early. Limit anticholinergics. Fall risk. Inventory Assets Strengths: has social supports, accepting of services Needs: med safety plan, improve coping Suicide Risk Level Suicide Risk Level: Moderate (q15 min suicide checks) (mainly as disorganized but has been consistently denying SI, mood improving and feels safe in the hospital and agrees to let staff know if she feels unable to remain safe or requires additional support) Risk Factors Assessment : Yes Do You Have Access To A Gun?: No Mental Health Diagnoses: Yes Substance Use Disorders: No Previous Attempt: No Previous Psychiatric Hospitalization: Yes Protective Factors Assessment : No Employed: No Stable Relationships: Yes Interval History Identifying Information PAMELA HERRERA is a 62-year-old F who currently lives in [place], has a history of schizoaffective disorder, and was admitted on 01/17/23 12:34 on a 201 voluntary commitment for erratic behavior. Chief Complaint "Things just got so messed up". Review of Systems Sleep Information Total Hours of Sleep: 6 Meal Information Percent Meal Consumed - Breakfast: 100 Percent Meal Consumed - Lunch: 100 Percent Meal Consumed - Dinner: 100 Subjective Subjective The patient was seen and assessed and interval progress reviewed in a multidisciplinary team meeting with the treatment team. For details, see the "Impression" section. Overall I spent a total of 42 minutes for this inpatient follow-up including review of chart records, review of test results, direct evaluation of the patient [id number], counseling the patient, medication education with the patient, risk assessment, discussion during interdisciplinary treatment rounds, and documentation in the electronic health record. Physical Exam Psychiatric Orientation: alert, oriented to person, oriented to place, oriented to time and cooperative Apperance: appropriately groomed Eye Contact: + fair eye contact Motor Behavior: no abnormal motor movements Speech: normal rate/rhythm/volume of speech Affect: + constricted affect Mood: + depressed mood; no anxious mood Thought Process: + concrete thought process Thought Content: + paranoid and + delusions (about friend, less today) Suicidal Thoughts: denies suicidal thoughts Homicidal Thoughts: denies homicidal thoughts Hallucinations: no auditory hallucinations and no visual hallucinations Cognition: attention grossly intact and language grossly intact Estimated Intelligence: consistent with education level Insight: + limited insight Judgment: + limited judgement Vital Signs (Past 24 Hours) Last Vital Signs Temp 36.6 C 01/26/23 06:40 Pulse 80 01/26/23 06:40 Resp 16 01/26/23 06:40 BP 135/87 01/26/23 06:40 Pulse Ox 99 01/25/23 06:38 O2 Del Method Room Air 01/25/23 06:38 Results & Data ([facility]) Current Inpatient Medications Current Inpatient Medications: Current Inpatient Medications Acetaminophen (Acetaminophen 325 Mg Tab) 650 mg PO Q4H PRN PRN Reason: Headache or Minor Fever Stop: 02/16/23 12:33 Last Admin: 01/21/23 18:38 Dose: 650 mg Acetaminophen (Acetaminophen 500 Mg Tab) 1,000 mg PO TID PRN PRN Reason: Mild Pain (Scale Score 1-4) Stop: 02/16/23 12:37 Last Admin: 01/26/23 07:51 Dose: 1,000 mg Al Hydrox/Mg Hydrox/Simethicone (Aluminum/Magnesium Susp 30 Ml Udc) 30 ml PO Q4H PRN PRN Reason: GI Upset Stop: 02/16/23 12:33 Aspirin (Aspirin 81 Mg Ectab) 81 mg PO QAM [facility] Stop: 02/17/23 08:59 Last Admin: 01/26/23 09:13 Dose: 81 mg Bismuth Subsalicylate (Bismuth Subsalicylate Liqd 236 Ml) 15 ml PO PRN PRN PRN Reason: Loose Stool Stop: 02/16/23 12:33 Last Admin: 01/22/23 17:16 Dose: 15 ml Celecoxib (Celecoxib 100 Mg Cap) 100 mg PO BID DELMER Stop: 02/16/23 20:59 Last Admin: 01/26/23 09:13 Dose: 100 mg Clozapine (Clozapine 25 Mg Tab) 50 mg PO BID [facility]MER Stop: 02/16/23 20:59 Last Admin: 01/26/23 09:14 Dose: 50 mg Clozapine (Clozapine 100 Mg Tab) 300 mg PO HS DELMER Stop: 02/16/23 20:59 Last Admin: 01/25/23 20:56 Dose: 300 mg Clozapine (Clozapine 100 Mg Tab) 100 mg PO QAM [facility]MER Stop: 02/17/23 08:59 Last Admin: 01/26/23 09:14 Dose: 100 mg Gabapentin (Gabapentin 300 Mg Cap) 300 mg PO HS [facility]MER Stop: 02/16/23 20:59 Last Admin: 01/25/23 20:57 Dose: 300 mg Hydroxyzine HCl (Hydroxyzine Hcl 25 Mg Tab) 50 mg PO HSZ PRN PRN Reason: Insomnia Stop: 02/16/23 12:33 Hydroxyzine HCl (Hydroxyzine Hcl 25 Mg Tab) 25 mg PO Q4H PRN PRN Reason: Anxiety Stop: 02/16/23 12:33 Lamotrigine (Lamotrigine 100 Mg Tab) 200 mg PO BID DELMER Stop: 02/16/23 20:59 Last Admin: 01/26/23 09:14 Dose: 200 mg Levothyroxine Sodium (Levothyroxine Sodium 175 Mcg Tablet) 175 mcg PO DAILYBB [facility] Stop: 02/17/23 07:59 Last Admin: 01/26/23 07:33 Dose: 175 mcg Lidocaine (Lidocaine 5% 1 Patch) 1 patch TD DAILY PRN PRN Reason: pain Stop: 02/16/23 17:29 Magnesium Hydroxide (Magnesium Hydroxide Susp 30 Ml Udc) 30 ml PO DAILY PRN PRN Reason: Constipation Stop: 02/16/23 12:33 Meclizine HCl (Meclizine Hcl 25 Mg Tab) 25 mg PO QAM PRN PRN Reason: Dizziness Stop: 02/16/23 12:37 Last Admin: 01/22/23 07:00 Dose: 25 mg Metformin HCl (Metformin Hcl Er 500 Mg Tabcr) 1,000 mg PO QAM [facility] Stop: 02/17/23 08:59 Last Admin: 01/26/23 09:14 Dose: 1,000 mg Miconazole Nitrate (Miconazole Nitrate Powder 85 Gm) 1 appln EXT TID PRN PRN Reason: rash Stop: 02/16/23 13:59 Miscellaneous (Remove Lidoderm Patch) 1 each N/A DAILY@2100 PRN PRN Reason: If patch is applied Stop: 02/16/23 17:25 Pantoprazole Sodium (Pantoprazole 40 Mg Tab) 40 mg PO QAM [facility] Stop: 02/17/23 08:59 Last Admin: 01/26/23 09:14 Dose: 40 mg Polyethylene Glycol (Polyethylene (Miralax) 17 Gm Pack) 17 gm PO DAILY PRN PRN Reason: constipation Stop: 02/16/23 12:37 Quetiapine Fumarate (Quetiapine Fumarate 100 Mg Tablet) 100 mg PO QAM [facility]MER Stop: 02/20/23 08:59 Last Admin: 01/26/23 09:14 Dose: 100 mg Quetiapine Fumarate (Quetiapine Fumarate 300 Mg Tablet) 300 mg PO HS [facility]MER Stop: 02/22/23 21:59 Last Admin: 01/25/23 20:59 Dose: 300 mg Rosuvastatin Calcium (Rosuvastatin Calcium 20 Mg Tab) 20 mg PO HS [facility]MER Stop: 02/16/23 20:59 Last Admin: 01/25/23 21:00 Dose: 20 mg Sodium Chloride (Sodium Chloride 0.65% Na Soln 45 Ml (Ponca)) 1 - 2 sprays NA PRN PRN PRN Reason: Nasal Dryness/Congestion Stop: 02/16/23 12:33 Vitamin D (Cholecalciferol 1,000 Units 25 Mcg Tab) 1,000 units PO BID DELMER Stop: 02/16/23 20:59 Last Admin: 01/26/23 09:14 Dose: 1,000 units Mental Health & Subst Abuse Tx Psychiatrist Name of Psychiatrist: Maia Chavez Psychiatrist's Date Of Appointment With Psychiatric Provider: 01/30/2023 Time of Appointment with Psychiatrist: 1:30pm Psychiatric Appointment Comment: [address] [place] [address] [place] [address] Therapist Name of Therapist: [facility] Appointment Comment: please resume normal schedule Instructional Systems Design Consultant Name of Instructional Systems Design Consultant: KIERRA Myers Case Management Appointment Comment: please resume normal schedule Post Discharge Appointments Primary Care Physician Name Of Family Doctor/PCP: MELINDA [facility] Date of Future Appointment with PCP: 02/11/2023 Time of Appointment with PCP: 1pm Provider Appointment Comment: [address] [place] [address] [place], [place] [address] Specialist Name of Specialist: [facility] Phone Number for Specialist: [phone] Date of Appointment with Specialist: 01/28/23 Time of Appointment with Specialist: 1:45 PM Specialty Appointment Comment: [address], [address], [place] [address]
[2023-01-26] MEDS: ROSUVASTATIN CALCIUM 20 MG TAB PO SCH (21:18)
[2023-01-26] MEDS: GABAPENTIN 300 MG CAP PO SCH (21:18)
[2023-01-26] MEDS: QUEtiapine FUMARATE 300 MG TABLET PO SCH (21:18)
[2023-01-27] MEDS: ACETAMINOPHEN 500 MG TAB PO PRN ×2 (04:43→19:04)
[2023-01-27] MEDS: PANTOprazole 40 MG TAB PO SCH (09:10)
[2023-01-27] MEDS: LEVOTHYROXINE SODIUM 175 MCG TABLET PO SCH (09:10)
[2023-01-27] MEDS: cloZAPine 100 MG TAB PO SCH ×2 (09:10→21:35)
[2023-01-27] MEDS: CHOLECALCIFEROL 1,000 UNITS 25 MCG TAB PO SCH ×2 (09:11→21:36)
[2023-01-27] MEDS: ASPIRIN 81 MG ECTAB PO SCH (09:11)
[2023-01-27] MEDS: CELECOXIB 100 MG CAP PO SCH ×2 (09:11→21:36)
[2023-01-27] MEDS: QUEtiapine FUMARATE 100 MG TABLET PO SCH (09:11)
[2023-01-27] MEDS: lamoTRIgine 100 MG TAB PO SCH ×2 (09:11→21:37)
[2023-01-27] MEDS: cloZAPine 25 MG TAB PO SCH ×2 (09:11→21:36)
[2023-01-27] MEDS: metFORMIN HCL ER 500 MG TABCR PO SCH (09:11)
--- NOTE | 2023-01-27 09:28 | Psychiatric Progress Note ---
Date of Service January 27, 2023 Impression / Recommendations Impression 62 yo female with severe psychiatric illness since her teens classified as schizoaffective disorder, need to obtain additional collateral but reports no active hallucinations or hospitalizations for years, last inpatient [facility] a decade ago. She continues to live independently in the community with supports. Timeline for her decompensation or any suspected medication compliance is unclear and she is currently an unreliable historian. Abrupt discontinuation of her clozaril could precipitate a delirium vs. intermittent compliance triggering a manic episode vs. disorganization from breakthrough psychosis vs. underlying progression of a yet to be identified cognitive disorder. Diagnostically consistent with unspecified psychosis-unclear what has lead to recent exacerbation in symptoms and odd behaviors, if her friend is sick certainly could be due to trauma response or increased stress leading to acute exacerbation of psychosis vs hypomania given poor sleep even with multiple sedating medications. MNPR due to psychosis, recent odd behaviors, use of walker, bowel incontinence 01/27/2023: Not currently presenting as manic at all but her thoughts remain somewhat disorganized. This appears likely to represent her baseline. Continues to perseverate about her greatly advanced age of 62 and her belief that "someone messed up" her lamotrigine, causing this admission. We reviewed anticipated discharge tomorrow. 01/26/2023: Has been less manic, with less disorganized behavior. Pt speaks at some length about her frustrations with each of her medications, asking if there were an alternative for each one, then also saying that she thinks she has benefitted from each one and "should probably keep taking" each of them. She isn't really able to articulate any specific or concrete concerns about any of her medications. She is perseverative about her belief that someone "messed up the Lamictal" but asks me what I think the problem with it was. She feels strongly that she ended up in the hospital due to some sort of issue with lamotrigine rather than with clozapine, though symptoms strongly suggest she'd stopped the clozapine. Pt repeats many times that she's "62 years old", implying that's an advanced age and saying I couldn't possibly comprehend what it might be like to be that age (even after I told her that I turned 62 today and that clearly different people experience various ages differently). In reviewing records, I note that the most recent vitamin D level, of 28.7 ng/mL, was in 2020 (which may have been when vitamin D deficiency was diagnosed). Pt is not interested in a follow-up level. 01/25/2023: Mood improving, still with reported less than 6 hours of sleep but no signs of denise nor hypomania. Less irritable overall, fewer needs from staff and more organized in caring for her needs during the day. Significant less dizziness and fatigue in the morning since reduction of Seroquel dose and no further episodes of bowel incontinence. (1) Schizoaffective disorder: Plan 01/27/2023: * continue quetiapine 100 mg QAM & 300 mg QHS - decreased from prior to admission dose of 200 mg QAM & 300 mg QHS on 01/21/23 * Continue clozapine 150 mg QAM & 350 mg QHS - prior to admission dose * Continue lamotrigine 200 mg BID - prior to admission dose * anticipate discharge 1-2 days 01/26/2023: * continue quetiapine 100 mg QAM & 300 mg QHS - decreased from prior to admission dose of 200 mg QAM & 300 mg QHS on 01/21/23 * Continue clozapine 150 mg QAM & 350 mg QHS - prior to admission dose * Continue lamotrigine 200 mg BID - prior to admission dose * anticipate discharge 2-3 days 01/25/2023: Continue current medications and tx plan. * Seroquel 100mg qAM --decreased from 200mg qAM on 01/21/23 * Seroquel 300mg HS--prior to admission HS dose * Continue clozapine 150mg qAM and 350mg HS * Continue lamictal 200mg BID 01/24/2023: Continue current medications and tx plan. 01/23/2023: Decrease Seroquel to 300mg HS, continue with 100mg qAM, continue with clozapine and lamictal. 01/22/2023: Continue current medications and tx plan. 01/21/2023: * Seroquel 100mg qAM --decreased from 200mg qAM on 01/21/23 * increase to Seroquel 400mg HS--increased from 300mg HS on 01/21/23 * Continue clozapine 100mg qAM and 300mg HS * Continue lamictal 200mg BID 01/20/2023: Decrease Serquel AM dose from 200mg to 100mg starting tomorrow. Will discontinue cogentin as this may also be contributing to dizziness and given prominent anticholinergic effects of clozapine and seroquel, cogentin use is redundant. Continue Seroquel 300mg HS, clozapine 100mg qAM and 300mg HS and lamictal 200mg BID. 01/19/2023: Continue current medications and tx plan. 01/18/2023: EEG read by neurologist as normal. continue current meds and monitoring. 01/17/2023: The patient was admitted to the [facility] ([facility] inpatient mental [facility]) on q15 min checks (behavioral with suicide precautions) for safety. The patient will participate in group, recreational, and milieu therapies and will be offered additional individual and family sessions as clinically appropriate. At this point she just transitioned up to the unit following boarding in the ED so will monitor on home medications. If she had missed more than 2 days worth of clozaril protocol would have been to retitrate, may check CBC early. Limit anticholinergics. Fall risk. Inventory Assets Strengths: has social supports, accepting of services Needs: med safety plan, improve coping Suicide Risk Level Suicide Risk Level: Moderate (q15 min suicide checks) (mainly as disorganized but has been consistently denying SI, mood improving and feels safe in the hospital and agrees to let staff know if she feels unable to remain safe or requires additional support) Risk Factors Assessment : Yes Do You Have Access To A Gun?: No Mental Health Diagnoses: Yes Substance Use Disorders: No Previous Attempt: No Previous Psychiatric Hospitalization: Yes Protective Factors Assessment : No Employed: No Stable Relationships: Yes Interval History Identifying Information PAMELA HERRERA is a 62-year-old F who currently lives in [place], has a history of schizoaffective disorder, and was admitted on 01/17/23 12:34 on a 201 voluntary commitment for erratic behavior. Chief Complaint "Things are settling down". Review of Systems Sleep Information Total Hours of Sleep: 6 Meal Information Percent Meal Consumed - Breakfast: 100 Percent Meal Consumed - Lunch: 100 Percent Meal Consumed - Dinner: 100 Subjective Subjective The patient was seen and assessed and interval progress reviewed in a multidisciplinary team meeting with the treatment team. For details, see the "Impression" section. Overall I spent a total of 28 minutes for this inpatient follow-up including review of chart records, direct evaluation of the patient [id number], counseling the patient, medication education with the patient, risk assessment, discussion during interdisciplinary treatment rounds, and documentation in the electronic health record. Physical Exam Psychiatric Orientation: alert, oriented to person, oriented to place, oriented to time and cooperative Apperance: appropriately groomed Eye Contact: + fair eye contact Motor Behavior: no abnormal motor movements Speech: normal rate/rhythm/volume of speech Affect: + constricted affect Mood: + depressed mood Thought Process: + concrete thought process Thought Content: reality based without delusions Suicidal Thoughts: denies suicidal thoughts Homicidal Thoughts: denies homicidal thoughts Hallucinations: no auditory hallucinations and no visual hallucinations Cognition: attention grossly intact and language grossly intact Estimated Intelligence: consistent with education level Insight: + limited insight Judgment: + limited judgement Vital Signs (Past 24 Hours) Last Vital Signs Temp 36.5 C 01/27/23 06:41 Pulse 81 01/27/23 06:41 Resp 16 01/27/23 06:41 BP 132/80 01/27/23 06:41 Pulse Ox 99 01/25/23 06:38 O2 Del Method Room Air 01/25/23 06:38 Results & Data ([facility]) Current Inpatient Medications Current Inpatient Medications: Current Inpatient Medications Acetaminophen (Acetaminophen 325 Mg Tab) 650 mg PO Q4H PRN PRN Reason: Headache or Minor Fever Stop: 02/16/23 12:33 Last Admin: 01/21/23 18:38 Dose: 650 mg Acetaminophen (Acetaminophen 500 Mg Tab) 1,000 mg PO TID PRN PRN Reason: Mild Pain (Scale Score 1-4) Stop: 02/16/23 12:37 Last Admin: 01/27/23 04:43 Dose: 1,000 mg Al Hydrox/Mg Hydrox/Simethicone (Aluminum/Magnesium Susp 30 Ml Udc) 30 ml PO Q4H PRN PRN Reason: GI Upset Stop: 02/16/23 12:33 Aspirin (Aspirin 81 Mg Ectab) 81 mg PO QAM [facility] Stop: 02/17/23 08:59 Last Admin: 01/27/23 09:11 Dose: 81 mg Bismuth Subsalicylate (Bismuth Subsalicylate Liqd 236 Ml) 15 ml PO PRN PRN PRN Reason: Loose Stool Stop: 02/16/23 12:33 Last Admin: 01/22/23 17:16 Dose: 15 ml Celecoxib (Celecoxib 100 Mg Cap) 100 mg PO BID [facility] Stop: 02/16/23 20:59 Last Admin: 01/27/23 09:11 Dose: 100 mg Clozapine (Clozapine 25 Mg Tab) 50 mg PO BID [facility] Stop: 02/16/23 20:59 Last Admin: 01/27/23 09:11 Dose: 50 mg Clozapine (Clozapine 100 Mg Tab) 300 mg PO HS [facility] Stop: 02/16/23 20:59 Last Admin: 01/26/23 21:19 Dose: 300 mg Clozapine (Clozapine 100 Mg Tab) 100 mg PO QAM [place] Stop: 02/17/23 08:59 Last Admin: 01/27/23 09:10 Dose: 100 mg Gabapentin (Gabapentin 300 Mg Cap) 300 mg PO HS [facility] Stop: 02/16/23 20:59 Last Admin: 01/26/23 21:18 Dose: 300 mg Hydroxyzine HCl (Hydroxyzine Hcl 25 Mg Tab) 50 mg PO HSZ PRN PRN Reason: Insomnia Stop: 02/16/23 12:33 Hydroxyzine HCl (Hydroxyzine Hcl 25 Mg Tab) 25 mg PO Q4H PRN PRN Reason: Anxiety Stop: 02/16/23 12:33 Lamotrigine (Lamotrigine 100 Mg Tab) 200 mg PO BID [facility] Stop: 02/16/23 20:59 Last Admin: 01/27/23 09:11 Dose: 200 mg Levothyroxine Sodium (Levothyroxine Sodium 175 Mcg Tablet) 175 mcg PO DAILYBB [facility] Stop: 02/17/23 07:59 Last Admin: 01/27/23 09:10 Dose: 175 mcg Lidocaine (Lidocaine 5% 1 Patch) 1 patch TD DAILY PRN PRN Reason: pain Stop: 02/16/23 17:29 Magnesium Hydroxide (Magnesium Hydroxide Susp 30 Ml Udc) 30 ml PO DAILY PRN PRN Reason: Constipation Stop: 02/16/23 12:33 Meclizine HCl (Meclizine Hcl 25 Mg Tab) 25 mg PO QAM PRN PRN Reason: Dizziness Stop: 02/16/23 12:37 Last Admin: 01/22/23 07:00 Dose: 25 mg Metformin HCl (Metformin Hcl Er 500 Mg Tabcr) 1,000 mg PO QAM [place] Stop: 02/17/23 08:59 Last Admin: 01/27/23 09:11 Dose: 1,000 mg Miconazole Nitrate (Miconazole Nitrate Powder 85 Gm) 1 appln EXT TID PRN PRN Reason: rash Stop: 02/16/23 13:59 Miscellaneous (Remove Lidoderm Patch) 1 each N/A DAILY@2100 PRN PRN Reason: If patch is applied Stop: 02/16/23 17:25 Pantoprazole Sodium (Pantoprazole 40 Mg Tab) 40 mg PO QAM [facility]MER Stop: 02/17/23 08:59 Last Admin: 01/27/23 09:10 Dose: 40 mg Polyethylene Glycol (Polyethylene (Miralax) 17 Gm Pack) 17 gm PO DAILY PRN PRN Reason: constipation Stop: 02/16/23 12:37 Quetiapine Fumarate (Quetiapine Fumarate 100 Mg Tablet) 100 mg PO QAM [place] Stop: 02/20/23 08:59 Last Admin: 01/27/23 09:11 Dose: 100 mg Quetiapine Fumarate (Quetiapine Fumarate 300 Mg Tablet) 300 mg PO HS [facility] Stop: 02/22/23 21:59 Last Admin: 01/26/23 21:18 Dose: 300 mg Rosuvastatin Calcium (Rosuvastatin Calcium 20 Mg Tab) 20 mg PO HS [facility]MER Stop: 02/16/23 20:59 Last Admin: 01/26/23 21:18 Dose: 20 mg Sodium Chloride (Sodium Chloride 0.65% Na Soln 45 Ml ([place])) 1 - 2 sprays NA PRN PRN PRN Reason: Nasal Dryness/Congestion Stop: 02/16/23 12:33 Vitamin D (Cholecalciferol 1,000 Units 25 Mcg Tab) 1,000 units PO BID [facility] Stop: 02/16/23 20:59 Last Admin: 01/27/23 09:11 Dose: 1,000 units Mental Health & Subst Abuse Tx Psychiatrist Name of Psychiatrist: Maia Chavez Psychiatrist's Date Of Appointment With Psychiatric Provider: 01/30/2023 Time of Appointment with Psychiatrist: 1:30pm Psychiatric Appointment Comment: [address] [place] [id number] Therapist Name of Therapist: [facility] Appointment Comment: please resume normal schedule New Car Inspector Name of New Car Inspector: KIERRA Myers Case Management Appointment Comment: please resume normal schedule Post Discharge Appointments Primary Care Physician Name Of Family Doctor/PCP: MELIN[facility] Date of Future Appointment with PCP: 02/11/2023 Time of Appointment with PCP: 1pm Provider Appointment Comment: [address], [place] [address] Specialist Name of Specialist: [facility] Phone Number for Specialist: [phone] Date of Appointment with Specialist: 01/28/23 Time of Appointment with Specialist: 1:45 PM Specialty Appointment Comment: [address], [address], [place] [address]
[2023-01-27] MEDS: GABAPENTIN 300 MG CAP PO SCH (21:35)
[2023-01-27] MEDS: ROSUVASTATIN CALCIUM 20 MG TAB PO SCH (21:35)
[2023-01-27] MEDS: QUEtiapine FUMARATE 300 MG TABLET PO SCH (21:35)
[2023-01-28] MEDS: LEVOTHYROXINE SODIUM 175 MCG TABLET PO SCH (08:23)
[2023-01-28] MEDS: lamoTRIgine 100 MG TAB PO SCH (09:35)
[2023-01-28] MEDS: ASPIRIN 81 MG ECTAB PO SCH (09:35)
[2023-01-28] MEDS: cloZAPine 100 MG TAB PO SCH (09:35)
[2023-01-28] MEDS: CHOLECALCIFEROL 1,000 UNITS 25 MCG TAB PO SCH (09:35)
[2023-01-28] MEDS: CELECOXIB 100 MG CAP PO SCH (09:35)
[2023-01-28] MEDS: cloZAPine 25 MG TAB PO SCH (09:35)
[2023-01-28] MEDS: metFORMIN HCL ER 500 MG TABCR PO SCH (09:36)
[2023-01-28] MEDS: PANTOprazole 40 MG TAB PO SCH (09:36)
[2023-01-28] MEDS: QUEtiapine FUMARATE 100 MG TABLET PO SCH (09:36)
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
== END 2023-01-28 12:58 | disposition home or self-care (01) | DRG 885 ==
LOC: ED 14:22 → 3S 01-17 12:34 → SUATTDRO 01-17 12:34 → 3S 01-17 14:54

== ENCOUNTER 2023-02-13 18:54 | Inpatient (IN) ==
--- NOTE | 2023-02-13 21:48 | CT Scan Report ---
Exam(s): CT HEAD Without Contrast EXAM: CT Head Without Intravenous Contrast CLINICAL HISTORY: Reason for exam: ams. TECHNIQUE: Axial computed tomography images of the head/brain without intravenous contrast. CTDI is 37.22 mGy and DLP is 625.8 mGy-cm. Automated exposure control was utilized for the study. A dose lowering technique was utilized adhering to the principles of ALARA. COMPARISON: 08/09/2020. FINDINGS: Brain: Slight decreased attenuation within the deep white matter compatible with mild microangiopathic white matter disease. No hemorrhage. Ventricles: Unremarkable. No ventriculomegaly. Bones/joints: Unremarkable. No acute fracture. Soft tissues: Unremarkable. Sinuses: Unremarkable as visualized. No acute sinusitis. Mastoid air cells: Unremarkable as visualized. No mastoid effusion. IMPRESSION: No acute intracranial process. Electronically signed by: Gypsy Celestin MD 02/13/23 21:47 PM
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
[2023-02-14 01:14] LABS: Appearance Urine Cloudy (Clear); Bacteria Urine Automated 2+ (Negative); Bilirubin Urine Negative (Negative); Blood Urine Negative (Negative); Color Urine Yellow; Epithelial Cell Urine Auto >30 /lpf (0-5); Glucose Urine UA Negative (Negative); Ketones Urine Negative (Negative); Leukocyte Esterase Urine Negative (Negative); Nitrite Urine Negative (Negative); Protein Urine Negative (Negative); RBC Urine Automated 0-4 /hpf (0-4); Specific Gravity Urine 1.024 (1.000-1.030); Urobilinogen Urine Negative (Negative); pH Urine 5.5 (4.5-7.5)
[2023-02-14 01:51] LABS: Amphetamines+Metham, Urine Neg (Neg); Barbiturates, Urine Neg (Neg); Benzodiazepine, Urine Neg (Neg); Cocaine, Urine Neg (Neg); MDMA (Ecstacy), Urine Pos (Neg); Methadone, Urine Neg (Neg); Opiate, Urine Neg (Neg); Phencyclidine, Urine Neg (Neg)
[2023-02-14] MEDS ORDERED: cloZAPine 25 MG TAB PO STA (03:27)
[2023-02-14] MEDS ORDERED: BISMUTH SUBSALICYLATE LIQD 236 ML PO PRN (03:27)
[2023-02-14] MEDS ORDERED: MAGNESIUM HYDROXIDE SUSP 30 ML UDC PO PRN (03:27)
[2023-02-14] MEDS ORDERED: hydrOXYzine HCl 25 MG TAB PO PRN ×2 (03:27)
[2023-02-14] MEDS ORDERED: ALUMINUM/MAGNESIUM SUSP 30 ML UDC PO PRN (03:27)
[2023-02-14] MEDS ORDERED: ACETAMINOPHEN 325 MG TAB PO PRN (03:27)
[2023-02-14] MEDS ORDERED: SODIUM CHLORIDE 0.65% NA SOLN 45 ML (OCEAN) PRN (03:27)
--- NOTE | 2023-02-14 03:51 | Emergency Department Note ---
ED Visit Note Patient signed out to me at change of shift from Dr. Mora. Patient medically cleared prior to signout. Patient here with suicidal ideation. During the course of my overnight shift patient was excepted to 3 S. 201 signed. .
[2023-02-14] MEDS ORDERED: MECLIZINE HCL 25 MG TAB PO PRN (08:43)
[2023-02-14] MEDS ORDERED: MICONAZOLE NITRATE POWDER 85 GM EXT PRN (08:52)
[2023-02-14] MEDS ORDERED: POLYETHYLENE (MIRALAX) 17 GM PACK PO PRN (08:54)
[2023-02-14] MEDS: LEVOTHYROXINE SODIUM 175 MCG TABLET PO SCH (09:15)
[2023-02-14] MEDS: lamoTRIgine 100 MG TAB PO SCH ×2 (10:21→21:31)
[2023-02-14] MEDS: ASPIRIN 81 MG ECTAB PO SCH (10:22)
[2023-02-14] MEDS: CELECOXIB 100 MG CAP PO SCH ×2 (10:35→21:30)
[2023-02-14] MEDS: CHOLECALCIFEROL 1,000 UNITS 25 MCG TAB PO SCH ×2 (10:35→21:47)
[2023-02-14] MEDS: cloZAPine 100 MG TAB PO SCH ×2 (10:36→21:31)
[2023-02-14] MEDS: cloZAPine 25 MG TAB PO SCH ×2 (10:37→21:31)
[2023-02-14] MEDS: PANTOprazole 40 MG TAB PO SCH (10:38)
[2023-02-14] MEDS: QUEtiapine FUMARATE 100 MG TABLET PO SCH (10:39)
[2023-02-14] MEDS: metFORMIN HCL ER 500 MG TABCR PO SCH (10:47)
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
[2023-02-14] MEDS: LIDOCAINE 5% 1 PATCH TD SCH (17:52)
[2023-02-14] MEDS: GABAPENTIN 300 MG CAP PO SCH (21:32)
[2023-02-14] MEDS: QUEtiapine FUMARATE 300 MG TABLET PO SCH (21:32)
[2023-02-14] MEDS: ROSUVASTATIN CALCIUM 20 MG TAB PO SCH (21:46)
[2023-02-15] MEDS: metFORMIN HCL ER 500 MG TABCR PO SCH (10:14)
[2023-02-15] MEDS: PANTOprazole 40 MG TAB PO SCH (10:14)
[2023-02-15] MEDS: ASPIRIN 81 MG ECTAB PO SCH (10:14)
[2023-02-15] MEDS: cloZAPine 25 MG TAB PO SCH ×2 (10:15→21:20)
[2023-02-15] MEDS: cloZAPine 100 MG TAB PO SCH ×2 (10:15→21:18)
[2023-02-15] MEDS: CELECOXIB 100 MG CAP PO SCH ×2 (10:15→21:19)
[2023-02-15] MEDS: lamoTRIgine 100 MG TAB PO SCH ×2 (10:15→21:19)
[2023-02-15] MEDS: CHOLECALCIFEROL 1,000 UNITS 25 MCG TAB PO SCH ×2 (10:16→21:19)
[2023-02-15] MEDS: LEVOTHYROXINE SODIUM 175 MCG TABLET PO SCH (10:16)
[2023-02-15] MEDS: QUEtiapine FUMARATE 100 MG TABLET PO SCH (10:16)
--- NOTE | 2023-02-15 15:21 | Psychiatric Progress Note ---
Date of Service February 15, 2023 Impression / Recommendations Impression 62 yo female with history of SPMI, rehospitalized for disorganization with suspected med compliance. MNPR given severity of psychosis. Overall, I spent a total of 38 minutes with this case, including review of eladio vergara, direct evaluation of the patient, coordination with nursing, treatment team, and documentation. (1) Schizoaffective disorder: Plan 02/15/23: continue current meds as hx of encephalopathy around med compliance and reestablishing med compliance. She is readily redirectible in this setting without additional prns and does have periods of sedation. Patient has a hx of significant dystonia on Haldol and has been on current medications for a long time. looking at previous trials on file here, I do not see Abilify. 02/14/23: The patient was admitted to the [facility] ([facility] mental health unit) on q15 min checks (behavioral with suicide precautions) for safety. The patient will participate in group, recreational, and milieu therapies and will be offered additional individual and family sessions as clinically appropriate. Resume home medications as reconstituted quickly last time but will likely need to revisit d/c Seroquel in favor of a MURRAY in combo with clozaril. Inventory Assets Strengths: engages with services, able to live independently for years Needs: improve med compliance and safety plan Suicide Risk Level Suicide Risk Level: Moderate (q15 min suicide checks) Risk Factors Assessment : Yes Do You Have Access To A Gun?: No Mental Health Diagnoses: Yes Previous Psychiatric Hospitalization: Yes Protective Factors Assessment Employed: No Stable Relationships: Yes Interval History Identifying Information PAMELA HERRERA is a 62-year-old F who currently lives in [place], has a recent inpatient stay last month, and was admitted on 02/14/23 02:46 on a 201 voluntary commitment for suicidal statements at [facility]. Chief Complaint "I'm a baby." Review of Systems Sleep Information Total Hours of Sleep: 8.25 Sleep Comments: New admission overnight Meal Information Percent Meal Consumed - Breakfast: 20 Percent Meal Consumed - Lunch: 75 Percent Meal Consumed - Dinner: 0 Nutrition Comment: fluids and a snack provided Subjective Subjective Patient was seen & assessed and interval progress reviewed with treatment team. Odd behaviors in that will sit crying than laugh like a witch. She needs reassurance from staff that she'd not dying or says she wants to than changes subject. She had not been eating or drinking much without encouragement. She is taking drinks, ice cream preferentially over meals. Physical Exam Psychiatric Orientation: alert Apperance: + disheveled Eye Contact: + not good eye contact Speech: + abnormal rate/rhythm/volume of speech (rambling) Affect: + labile affect Mood: + depressed mood and + anxious mood Thought Process: + tangential thought process Thought Content: + delusions (that she's dying) Suicidal Thoughts: denies suicidal thoughts Homicidal Thoughts: denies homicidal thoughts Hallucinations: no auditory hallucinations and no visual hallucinations Cognition: language grossly intact; + attention not intact Estimated Intelligence: consistent with education level Insight: + poor insight Judgment: + poor judgement Vital Signs (Past 24 Hours) Last Vital Signs Temp 36.6 C 02/15/23 06:45 Pulse 73 02/15/23 06:45 Resp 16 02/15/23 06:45 BP 122/80 02/15/23 06:45 Pulse Ox 96 02/14/23 04:03 O2 Del Method Room Air 02/14/23 04:03 Results & Data ([facility]) Current Inpatient Medications Current Inpatient Medications: Current Inpatient Medications Acetaminophen (Acetaminophen 325 Mg Tab) 650 mg PO Q4H PRN PRN Reason: Headache or Minor Fever Stop: 03/16/23 03:26 Al Hydrox/Mg Hydrox/Simethicone (Aluminum/Magnesium Susp 30 Ml Udc) 30 ml PO Q4H PRN PRN Reason: GI Upset Stop: 03/16/23 03:26 Aspirin (Aspirin 81 Mg Ectab) 81 mg PO QAM [facility] Stop: 03/16/23 08:59 Last Admin: 02/15/23 10:14 Dose: 81 mg Bismuth Subsalicylate (Bismuth Subsalicylate Liqd 236 Ml) 15 ml PO PRN PRN PRN Reason: Loose Stool Stop: 03/16/23 03:26 Celecoxib (Celecoxib 100 Mg Cap) 100 mg PO BID [facility] Stop: 03/16/23 09:59 Last Admin: 02/15/23 10:15 Dose: 100 mg Clozapine (Clozapine 100 Mg Tab) 300 mg PO HS [facility]; Protocol Stop: 03/16/23 21:59 Last Admin: 02/14/23 21:31 Dose: 300 mg Clozapine (Clozapine 25 Mg Tab) 50 mg PO BID [facility]; Protocol Stop: 12/09/23 09:59 Last Admin: 02/15/23 10:15 Dose: 50 mg Clozapine (Clozapine 100 Mg Tab) 100 mg PO QAM [facility]; Protocol Stop: 03/16/23 09:59 Last Admin: 02/15/23 10:15 Dose: 100 mg Gabapentin (Gabapentin 300 Mg Cap) 300 mg PO HS [facility] Stop: 03/16/23 21:59 Last Admin: 02/14/23 21:32 Dose: 300 mg Hydroxyzine HCl (Hydroxyzine Hcl 25 Mg Tab) 50 mg PO HSZ PRN PRN Reason: Insomnia Stop: 03/16/23 03:26 Hydroxyzine HCl (Hydroxyzine Hcl 25 Mg Tab) 25 mg PO Q4H PRN PRN Reason: Anxiety Stop: 03/16/23 03:26 Lamotrigine (Lamotrigine 100 Mg Tab) 200 mg PO BID [facility] Stop: 03/16/23 08:59 Last Admin: 02/15/23 10:15 Dose: 200 mg Levothyroxine Sodium (Levothyroxine Sodium 175 Mcg Tablet) 175 mcg PO DAILY [facility] Stop: 03/16/23 08:59 Last Admin: 02/15/23 10:16 Dose: 175 mcg Lidocaine (Lidocaine 5% 1 Patch) 1 patch TD DAILY@1700 [facility] Stop: 03/16/23 16:59 Last Admin: 02/14/23 17:52 Dose: 1 patch Magnesium Hydroxide (Magnesium Hydroxide Susp 30 Ml Udc) 30 ml PO DAILY PRN PRN Reason: Constipation Stop: 03/16/23 03:26 Meclizine HCl (Meclizine Hcl 25 Mg Tab) 25 mg PO QAM PRN PRN Reason: Dizziness Stop: 03/16/23 08:42 Metformin HCl (Metformin Hcl Er 500 Mg Tabcr) 1,000 mg PO DAILY [facility] Stop: 03/16/23 09:59 Last Admin: 02/15/23 10:14 Dose: 1,000 mg Miconazole Nitrate (Miconazole Nitrate Powder 85 Gm) 1 appln EXT PRN PRN PRN Reason: Rash Stop: 03/16/23 08:51 Miscellaneous (Remove Lidoderm Patch) 1 each N/A DAILY@0500 [facility] Stop: 03/17/23 04:59 Last Admin: 02/15/23 05:38 Dose: 1 each Pantoprazole Sodium (Pantoprazole 40 Mg Tab) 40 mg PO QAM [facility] Stop: 03/16/23 09:59 Last Admin: 02/15/23 10:14 Dose: 40 mg Polyethylene Glycol (Polyethylene (Miralax) 17 Gm Pack) 17 gm PO DAILY PRN PRN Reason: constipation Stop: 03/16/23 08:53 Quetiapine Fumarate (Quetiapine Fumarate 300 Mg Tablet) 300 mg PO HS [facility] Stop: 03/16/23 21:59 Last Admin: 02/14/23 21:32 Dose: 300 mg Quetiapine Fumarate (Quetiapine Fumarate 100 Mg Tablet) 100 mg PO QAM [facility] Stop: 03/16/23 09:59 Last Admin: 02/15/23 10:16 Dose: 100 mg Rosuvastatin Calcium (Rosuvastatin Calcium 20 Mg Tab) 20 mg PO HS [facility] Stop: 03/16/23 21:59 Last Admin: 02/14/23 21:46 Dose: Not Given Sodium Chloride (Sodium Chloride 0.65% Na Soln 45 Ml ([place])) 1 - 2 sprays NA PRN PRN PRN Reason: Nasal Dryness/Congestion Stop: 03/16/23 03:26 Vitamin D (Cholecalciferol 1,000 Units 25 Mcg Tab) 1,000 units PO BID [facility] Stop: 03/16/23 09:59 Last Admin: 02/15/23 10:16 Dose: 1,000 units Mental Health & Subst Abuse Tx Therapist Name of Therapist: Rudy Umanzor Diet Assistant Name of Diet Assistant: AGNES Myers
[2023-02-15] MEDS: LIDOCAINE 5% 1 PATCH TD SCH (16:09)
[2023-02-15] MEDS: ROSUVASTATIN CALCIUM 20 MG TAB PO SCH (21:18)
[2023-02-15] MEDS: GABAPENTIN 300 MG CAP PO SCH (21:19)
[2023-02-15] MEDS: QUEtiapine FUMARATE 300 MG TABLET PO SCH (21:19)
[2023-02-16] MEDS: ASPIRIN 81 MG ECTAB PO SCH (09:00)
[2023-02-16] MEDS: CHOLECALCIFEROL 1,000 UNITS 25 MCG TAB PO SCH ×2 (09:00→21:46)
[2023-02-16] MEDS: cloZAPine 100 MG TAB PO SCH ×2 (09:01→21:45)
[2023-02-16] MEDS: CELECOXIB 100 MG CAP PO SCH ×2 (09:01→21:46)
[2023-02-16] MEDS: LEVOTHYROXINE SODIUM 175 MCG TABLET PO SCH (09:01)
[2023-02-16] MEDS: lamoTRIgine 100 MG TAB PO SCH ×2 (09:01→21:45)
[2023-02-16] MEDS: cloZAPine 25 MG TAB PO SCH ×2 (09:01→21:46)
[2023-02-16] MEDS: PANTOprazole 40 MG TAB PO SCH (09:02)
[2023-02-16] MEDS: QUEtiapine FUMARATE 100 MG TABLET PO SCH (09:02)
[2023-02-16] MEDS: metFORMIN HCL ER 500 MG TABCR PO SCH (09:02)
--- NOTE | 2023-02-16 09:49 | Psychiatric Progress Note ---
Date of Service February 16, 2023 Impression / Recommendations Impression 62 yo female with history of schizoaffective disorder with recent admission following medication non-adherence now rehospitalized for disorganization with delusions in context of suspected medication non-adherence. MNPR given severity of psychosis. 02/16/2023: Ongoing disorganization, delusions, mood lability and difficulty engaging in any type of meaningful assessment. Will continue with current medications as she previously stabilized quite quickly with this regimen. May need to consider discontinuation of lamictal if medication non-adherence remains a concern. ANC reviewed and stable for use of clozapine. Overall, I spent a total of 35 minutes with this case, including review of chart, review of labwork, direct evaluation of the patient, coordination with nursing, treatment team, and documentation. (1) Schizoaffective disorder: Plan 02/16/2023: continue current medications and tx plan. 02/15/23: continue current meds as hx of encephalopathy around med compliance and reestablishing med compliance. She is readily redirectible in this setting without additional prns and does have periods of sedation. Patient has a hx of significant dystonia on Haldol and has been on current medications for a long time. looking at previous trials on file here, I do not see Abilify. 02/14/23: The patient was admitted to the [facility] ([facility] inpatient mental health unit) on q15 min checks (behavioral with suicide precautions) for safety. The patient will participate in group, recreational, and milieu therapies and will be offered additional individual and family sessions as clinically appropriate. Resume home medications as reconstituted quickly last time but will likely need to revisit d/c Seroquel in favor of a MURRAY in combo with clozaril. Inventory Assets Strengths: engages with services, able to live independently for years Needs: improve med compliance and safety plan Suicide Risk Level Suicide Risk Level: Moderate (q15 min suicide checks) (making intermittent statements of SI that seems to be driven by disorganization and delusions but will continue to monitor for signs of depression/anxiety, feels safe in the hospital and alerts staff consistently when she feels in need of additional support or feels distressed) Risk Factors Assessment : Yes Do You Have Access To A Gun?: No Mental Health Diagnoses: Yes Previous Psychiatric Hospitalization: Yes Protective Factors Assessment Employed: No Stable Relationships: Yes Interval History Identifying Information PAMELA HERRERA is a 62-year-old F who currently lives in [place], has a recent inpatient stay last month, and was admitted on 02/14/23 02:46 on a 201 voluntary commitment for suicidal statements at [facility]. Chief Complaint "I'm tired". Review of Systems Sleep Information Total Hours of Sleep: 6.75 Sleep Comments: Meal Information Percent Meal Consumed - Breakfast: 5 Percent Meal Consumed - Lunch: 75 Percent Meal Consumed - Dinner: 100 Nutrition Comment: fluids and a snack provided Subjective Subjective Patient was seen & assessed and interval progress reviewed with treatment team nursing and social work. Has delusions that she is a baby, has been incontinent of bowel and bladder but none last night. Discusses hopes of being adopted. Requiring prompting to eat/drink. Not able to attend any groups. Asked one RN to "just let me " while eating breakfast then later in morning told another RN "please don't let me ". Mid-morning she is back in bed and whispers in talking to me. Reports her mood is "ok" and cites reason for being in bed is due to fatigue. Reports she is hungry, cannot recall if she had breakfast (she did). Physical Exam Psychiatric Orientation: alert Apperance: + disheveled Eye Contact: + not good eye contact Speech: + abnormal rate/rhythm/volume of speech (brief, whispers) Affect: + labile affect Mood: + depressed mood and + anxious mood Thought Process: + tangential thought process Thought Content: + delusions (that she's dying) Suicidal Thoughts: denies suicidal plan and denies suicidal intent; + reports suicidal thoughts (intermittently expresses wish to vs fear of dying) Homicidal Thoughts: denies homicidal thoughts Hallucinations: no auditory hallucinations (unclear if responding to internal stimuli) and no visual hallucinations Cognition: language grossly intact; + attention not intact Estimated Intelligence: consistent with education level Insight: + poor insight Judgment: + poor judgement Vital Signs (Past 24 Hours) Last Vital Signs Temp 36.6 C 02/16/23 07:05 Pulse 86 02/16/23 07:05 Resp 18 02/16/23 07:05 BP 143/87 H 02/16/23 07:05 Pulse Ox 96 02/14/23 04:03 O2 Del Method Room Air 02/14/23 04:03 Results & Data ([facility]) Current Inpatient Medications Current Inpatient Medications: Current Inpatient Medications Acetaminophen (Acetaminophen 325 Mg Tab) 650 mg PO Q4H PRN PRN Reason: Headache or Minor Fever Stop: 03/16/23 03:26 Al Hydrox/Mg Hydrox/Simethicone (Aluminum/Magnesium Susp 30 Ml Udc) 30 ml PO Q4H PRN PRN Reason: GI Upset Stop: 03/16/23 03:26 Aspirin (Aspirin 81 Mg Ectab) 81 mg PO QAM [facility] Stop: 03/16/23 08:59 Last Admin: 02/16/23 09:00 Dose: 81 mg Bismuth Subsalicylate (Bismuth Subsalicylate Liqd 236 Ml) 15 ml PO PRN PRN PRN Reason: Loose Stool Stop: 03/16/23 03:26 Celecoxib (Celecoxib 100 Mg Cap) 100 mg PO BID [facility] Stop: 03/16/23 09:59 Last Admin: 02/16/23 09:01 Dose: 100 mg Clozapine (Clozapine 100 Mg Tab) 300 mg PO HS [facility]; Protocol Stop: 03/16/23 21:59 Last Admin: 02/15/23 21:18 Dose: 300 mg Clozapine (Clozapine 25 Mg Tab) 50 mg PO BID [facility]; Protocol Stop: 03/16/23 09:59 Last Admin: 02/16/23 09:01 Dose: 50 mg Clozapine (Clozapine 100 Mg Tab) 100 mg PO QAM [facility]; Protocol Stop: 03/16/23 09:59 Last Admin: 02/16/23 09:01 Dose: 100 mg Gabapentin (Gabapentin 300 Mg Cap) 300 mg PO HS [facility] Stop: 03/16/23 21:59 Last Admin: 02/15/23 21:19 Dose: 300 mg Hydroxyzine HCl (Hydroxyzine Hcl 25 Mg Tab) 50 mg PO HSZ PRN PRN Reason: Insomnia Stop: 03/16/23 03:26 Hydroxyzine HCl (Hydroxyzine Hcl 25 Mg Tab) 25 mg PO Q4H PRN PRN Reason: Anxiety Stop: 03/16/23 03:26 Lamotrigine (Lamotrigine 100 Mg Tab) 200 mg PO BID [facility] Stop: 03/16/23 08:59 Last Admin: 02/16/23 09:01 Dose: 200 mg Levothyroxine Sodium (Levothyroxine Sodium 175 Mcg Tablet) 175 mcg PO DAILY [facility] Stop: 03/16/23 08:59 Last Admin: 02/16/23 09:01 Dose: 175 mcg Lidocaine (Lidocaine 5% 1 Patch) 1 patch TD DAILY@1700 [facility] Stop: 03/16/23 16:59 Last Admin: 02/15/23 16:09 Dose: 1 patch Magnesium Hydroxide (Magnesium Hydroxide Susp 30 Ml Udc) 30 ml PO DAILY PRN PRN Reason: Constipation Stop: 03/16/23 03:26 Meclizine HCl (Meclizine Hcl 25 Mg Tab) 25 mg PO QAM PRN PRN Reason: Dizziness Stop: 03/16/23 08:42 Metformin HCl (Metformin Hcl Er 500 Mg Tabcr) 1,000 mg PO DAILY [facility] Stop: 03/16/23 09:59 Last Admin: 02/16/23 09:02 Dose: 1,000 mg Miconazole Nitrate (Miconazole Nitrate Powder 85 Gm) 1 appln EXT PRN PRN PRN Reason: Rash Stop: 03/16/23 08:51 Miscellaneous (Remove Lidoderm Patch) 1 each N/A DAILY@0500 [facility] Stop: 03/17/23 04:59 Last Admin: 02/16/23 05:51 Dose: 1 each Pantoprazole Sodium (Pantoprazole 40 Mg Tab) 40 mg PO QAM [facility] Stop: 03/16/23 09:59 Last Admin: 02/16/23 09:02 Dose: 40 mg Polyethylene Glycol (Polyethylene (Miralax) 17 Gm Pack) 17 gm PO DAILY PRN PRN Reason: constipation Stop: 03/16/23 08:53 Quetiapine Fumarate (Quetiapine Fumarate 300 Mg Tablet) 300 mg PO HS [facility] Stop: 03/16/23 21:59 Last Admin: 02/15/23 21:19 Dose: 300 mg Quetiapine Fumarate (Quetiapine Fumarate 100 Mg Tablet) 100 mg PO QAM [facility] Stop: 03/16/23 09:59 Last Admin: 02/16/23 09:02 Dose: 100 mg Rosuvastatin Calcium (Rosuvastatin Calcium 20 Mg Tab) 20 mg PO HS [facility] Stop: 03/16/23 21:59 Last Admin: 02/15/23 21:18 Dose: 20 mg Sodium Chloride (Sodium Chloride 0.65% Na Soln 45 Ml ([place])) 1 - 2 sprays NA PRN PRN PRN Reason: Nasal Dryness/Congestion Stop: 03/16/23 03:26 Vitamin D (Cholecalciferol 1,000 Units 25 Mcg Tab) 1,000 units PO BID [facility] Stop: 03/16/23 09:59 Last Admin: 02/16/23 09:00 Dose: 1,000 units Mental Health & Subst Abuse Tx Therapist Name of Therapist: Rudy Umanzor Socket Welder Helper Name of Socket Welder Helper: AGNES Myers
[2023-02-16] MEDS: LIDOCAINE 5% 1 PATCH TD SCH (17:43)
[2023-02-16] MEDS: ROSUVASTATIN CALCIUM 20 MG TAB PO SCH (21:43)
[2023-02-16] MEDS: QUEtiapine FUMARATE 300 MG TABLET PO SCH (21:44)
[2023-02-16] MEDS: GABAPENTIN 300 MG CAP PO SCH (21:44)
[2023-02-17] MEDS: lamoTRIgine 100 MG TAB PO SCH ×2 (08:53→20:35)
[2023-02-17] MEDS: ASPIRIN 81 MG ECTAB PO SCH (08:53)
[2023-02-17] MEDS: CHOLECALCIFEROL 1,000 UNITS 25 MCG TAB PO SCH ×2 (08:53→20:35)
[2023-02-17] MEDS: cloZAPine 100 MG TAB PO SCH ×2 (08:53→20:36)
[2023-02-17] MEDS: CELECOXIB 100 MG CAP PO SCH ×2 (08:53→20:35)
[2023-02-17] MEDS: cloZAPine 25 MG TAB PO SCH ×2 (08:53→20:35)
[2023-02-17] MEDS: metFORMIN HCL ER 500 MG TABCR PO SCH (08:54)
[2023-02-17] MEDS: PANTOprazole 40 MG TAB PO SCH (08:54)
[2023-02-17] MEDS: QUEtiapine FUMARATE 100 MG TABLET PO SCH (08:54)
[2023-02-17] MEDS: LEVOTHYROXINE SODIUM 175 MCG TABLET PO SCH (08:54)
--- NOTE | 2023-02-17 10:08 | Psychiatric Progress Note ---
Date of Service February 17, 2023 Impression / Recommendations Impression 62 yo female with history of schizoaffective disorder with recent admission following medication non-adherence now rehospitalized for disorganization with delusions in context of suspected medication non-adherence. MNPR given severity of psychosis. 02/17/2023: Ongoing disorganization, fewer delusional statements so far today but with ongoing mood lability with periods of odd laughter. Sedation improving. At times manages ADLs independently at other times seems to be unable to attend to these and requests frequent RN attention/help. Overall, I spent a total of 35 minutes with this case, including review of chart, review of labwork, direct evaluation of the patient, coordination with nursing, treatment team, and documentation. (1) Schizoaffective disorder: Plan 02/17/2023: continue current medications and tx plan. 02/16/2023: continue current medications and tx plan. 02/15/23: continue current meds as hx of encephalopathy around med compliance and reestablishing med compliance. She is readily redirectible in this setting without additional prns and does have periods of sedation. Patient has a hx of significant dystonia on Haldol and has been on current medications for a long time. looking at previous trials on file here, I do not see Abilify. 02/14/23: The patient was admitted to the [facility] ([facility]) on q15 min checks (behavioral with suicide precautions) for safety. The patient will participate in group, recreational, and milieu therapies and will be offered additional individual and family sessions as clinically appropriate. Resume home medications as reconstituted quickly last time but will likely need to revisit d/c Seroquel in favor of a MURRAY in combo with clozaril. Inventory Assets Strengths: engages with services, able to live independently for years Needs: improve med compliance and safety plan Suicide Risk Level Suicide Risk Level: Moderate (q15 min suicide checks) (making intermittent statements of SI that seems to be driven by disorganization and delusions but will continue to monitor for signs of depression/anxiety, feels safe in the hospital and alerts staff consistently when she feels in need of additional support or feels distressed) Risk Factors Assessment : Yes Do You Have Access To A Gun?: No Mental Health Diagnoses: Yes Previous Psychiatric Hospitalization: Yes Protective Factors Assessment Employed: No Stable Relationships: Yes Interval History Identifying Information PAMELA SHARON is a 62-year-old F who currently lives in [place], has a recent inpatient stay last month, and was admitted on 02/14/23 02:46 on a 201 voluntary commitment for suicidal statements at [facility]. Chief Complaint "Tired". Review of Systems Sleep Information Total Hours of Sleep: 8.25 Meal Information Percent Meal Consumed - Breakfast: 50 Percent Meal Consumed - Lunch: 10 Percent Meal Consumed - Dinner: 50 Nutrition Comment: fluids and a snack provided Subjective Subjective Patient was seen & assessed and interval progress reviewed with treatment team nursing and social work. Spent much of the day sleeping yesterday but out of her room at times. Requested RNs feed her dinner but with encouragement she ate most of her dinner. With encouragement she will feed and drink independently but requests help consistently with this. Incontinence of bowel and bladder overnight. When encouraged is walking and toileting independently. Still whispering and crying intermittently. On my assessment she reports feeling tired though was out of bed during most of the morning. Laughing oddly and intermittently and cannot explain why. Can't offer much in terms of conversation except to make care needs requests such as for water and asks to hold my hand. Physical Exam Psychiatric Orientation: alert Apperance: + disheveled Eye Contact: + fair eye contact Speech: + abnormal rate/rhythm/volume of speech (brief, whispers at times) Affect: + labile affect (laughing inappropriately ); + mood not congruent with affect Mood: + depressed mood and + anxious mood Thought Process: + tangential thought process Thought Content: + delusions (that she's dying) Suicidal Thoughts: denies suicidal plan and denies suicidal intent; + reports suicidal thoughts (intermittently expresses wish to vs fear of dying) Homicidal Thoughts: denies homicidal thoughts Hallucinations: no auditory hallucinations (unclear if responding to internal stimuli) and no visual hallucinations Cognition: language grossly intact; + attention not intact Estimated Intelligence: consistent with education level Insight: + poor insight Judgment: + poor judgement Vital Signs (Past 24 Hours) Last Vital Signs Temp 36.1 C L 02/17/23 06:00 Pulse 86 02/17/23 06:00 Resp 16 02/17/23 06:00 BP 110/70 02/17/23 06:00 Pulse Ox 96 02/14/23 04:03 O2 Del Method Room Air 02/14/23 04:03 Results & Data ([facility]) Current Inpatient Medications Current Inpatient Medications: Current Inpatient Medications Acetaminophen (Acetaminophen 325 Mg Tab) 650 mg PO Q4H PRN PRN Reason: Headache or Minor Fever Stop: 03/16/23 03:26 Al Hydrox/Mg Hydrox/Simethicone (Aluminum/Magnesium Susp 30 Ml Udc) 30 ml PO Q4H PRN PRN Reason: GI Upset Stop: 03/16/23 03:26 Aspirin (Aspirin 81 Mg Ectab) 81 mg PO QAM [facility] Stop: 03/16/23 08:59 Last Admin: 02/17/23 08:53 Dose: 81 mg Bismuth Subsalicylate (Bismuth Subsalicylate Liqd 236 Ml) 15 ml PO PRN PRN PRN Reason: Loose Stool Stop: 03/16/23 03:26 Celecoxib (Celecoxib 100 Mg Cap) 100 mg PO BID [facility] Stop: 03/16/23 09:59 Last Admin: 02/17/23 08:53 Dose: 100 mg Clozapine (Clozapine 100 Mg Tab) 300 mg PO HS [facility]; Protocol Stop: 03/16/23 21:59 Last Admin: 02/16/23 21:45 Dose: 300 mg Clozapine (Clozapine 25 Mg Tab) 50 mg PO BID [facility]; Protocol Stop: 03/16/23 09:59 Last Admin: 02/17/23 08:53 Dose: 50 mg Clozapine (Clozapine 100 Mg Tab) 100 mg PO QAM [facility]; Protocol Stop: 03/16/23 09:59 Last Admin: 02/17/23 08:53 Dose: 100 mg Gabapentin (Gabapentin 300 Mg Cap) 300 mg PO HS [facility] Stop: 03/16/23 21:59 Last Admin: 02/16/23 21:44 Dose: 300 mg Hydroxyzine HCl (Hydroxyzine Hcl 25 Mg Tab) 50 mg PO HSZ PRN PRN Reason: Insomnia Stop: 03/16/23 03:26 Hydroxyzine HCl (Hydroxyzine Hcl 25 Mg Tab) 25 mg PO Q4H PRN PRN Reason: Anxiety Stop: 03/16/23 03:26 Lamotrigine (Lamotrigine 100 Mg Tab) 200 mg PO BID [facility] Stop: 03/16/23 08:59 Last Admin: 02/17/23 08:53 Dose: 200 mg Levothyroxine Sodium (Levothyroxine Sodium 175 Mcg Tablet) 175 mcg PO DAILY [facility] Stop: 03/16/23 08:59 Last Admin: 02/17/23 08:54 Dose: 175 mcg Lidocaine (Lidocaine 5% 1 Patch) 1 patch TD DAILY@1700 [facility] Stop: 03/16/23 16:59 Last Admin: 02/16/23 17:43 Dose: 1 patch Magnesium Hydroxide (Magnesium Hydroxide Susp 30 Ml Udc) 30 ml PO DAILY PRN PRN Reason: Constipation Stop: 03/16/23 03:26 Meclizine HCl (Meclizine Hcl 25 Mg Tab) 25 mg PO QAM PRN PRN Reason: Dizziness Stop: 03/16/23 08:42 Metformin HCl (Metformin Hcl Er 500 Mg Tabcr) 1,000 mg PO DAILY [facility] Stop: 03/16/23 09:59 Last Admin: 02/17/23 08:54 Dose: 1,000 mg Miconazole Nitrate (Miconazole Nitrate Powder 85 Gm) 1 appln EXT PRN PRN PRN Reason: Rash Stop: 03/16/23 08:51 Miscellaneous (Remove Lidoderm Patch) 1 each N/A DAILY@0500 [facility] Stop: 03/17/23 04:59 Last Admin: 02/17/23 05:54 Dose: 1 each Pantoprazole Sodium (Pantoprazole 40 Mg Tab) 40 mg PO QAM [facility] Stop: 03/16/23 09:59 Last Admin: 02/17/23 08:54 Dose: 40 mg Polyethylene Glycol (Polyethylene (Miralax) 17 Gm Pack) 17 gm PO DAILY PRN PRN Reason: constipation Stop: 03/16/23 08:53 Quetiapine Fumarate (Quetiapine Fumarate 300 Mg Tablet) 300 mg PO HS [facility] Stop: 03/16/23 21:59 Last Admin: 02/16/23 21:44 Dose: 300 mg Quetiapine Fumarate (Quetiapine Fumarate 100 Mg Tablet) 100 mg PO QAM [facility] Stop: 03/16/23 09:59 Last Admin: 02/17/23 08:54 Dose: 100 mg Rosuvastatin Calcium (Rosuvastatin Calcium 20 Mg Tab) 20 mg PO HS [facility] Stop: 03/16/23 21:59 Last Admin: 02/16/23 21:43 Dose: 20 mg Sodium Chloride (Sodium Chloride 0.65% Na Soln 45 Ml ([place])) 1 - 2 sprays NA PRN PRN PRN Reason: Nasal Dryness/Congestion Stop: 03/16/23 03:26 Vitamin D (Cholecalciferol 1,000 Units 25 Mcg Tab) 1,000 units PO BID [facility] Stop: 03/16/23 09:59 Last Admin: 02/17/23 08:53 Dose: 1,000 units Mental Health & Subst Abuse Tx Therapist Name of Therapist: Rudy Umanzor Chalk Molding Machine Operator Name of Chalk Molding Machine Operator: AGNES Myers
[2023-02-17] MEDS: LIDOCAINE 5% 1 PATCH TD SCH (17:32)
[2023-02-17] MEDS: GABAPENTIN 300 MG CAP PO SCH (20:37)
[2023-02-17] MEDS: QUEtiapine FUMARATE 300 MG TABLET PO SCH (20:37)
[2023-02-17] MEDS: ROSUVASTATIN CALCIUM 20 MG TAB PO SCH (20:37)
--- NOTE | 2023-02-18 09:36 | Psychiatric Progress Note ---
Date of Service February 18, 2023 Impression / Recommendations Impression 62 yo female with history of schizoaffective disorder with recent admission following medication non-adherence now rehospitalized for disorganization with delusions in context of suspected medication non-adherence. MNPR given severity of psychosis. 02/17/2023: Ongoing disorganization, fewer delusional statements so far today but with ongoing mood lability with periods of odd laughter. Sedation improving. At times manages ADLs independently at other times seems to be unable to attend to these and requests frequent RN attention/help. Overall, I spent a total of 35 minutes with this case, including review of chart, review of labwork, direct evaluation of the patient, coordination with nursing, treatment team, and documentation. (1) Schizoaffective disorder: Plan 02/17/2023: continue current medications and tx plan. 02/16/2023: continue current medications and tx plan. 02/15/23: continue current meds as hx of encephalopathy around med compliance and reestablishing med compliance. She is readily redirectible in this setting without additional prns and does have periods of sedation. Patient has a hx of significant dystonia on Haldol and has been on current medications for a long time. looking at previous trials on file here, I do not see Abilify. 02/14/23: The patient was admitted to the [facility]) on q15 min checks (behavioral with suicide precautions) for safety. The patient will participate in group, recreational, and milieu therapies and will be offered additional individual and family sessions as clinically appropriate. Resume home medications as reconstituted quickly last time but will likely need to revisit d/c Seroquel in favor of a MURRAY in combo with clozaril. Inventory Assets Strengths: engages with services, able to live independently for years Needs: improve med compliance and safety plan Suicide Risk Level Suicide Risk Level: Moderate (q15 min suicide checks) (making intermittent statements of SI that seems to be driven by disorganization and delusions but will continue to monitor for signs of depression/anxiety, feels safe in the hospital and alerts staff consistently when she feels in need of additional support or feels distressed) Risk Factors Assessment : Yes Do You Have Access To A Gun?: No Mental Health Diagnoses: Yes Previous Psychiatric Hospitalization: Yes Protective Factors Assessment Employed: No Stable Relationships: Yes Interval History Identifying Information PAMELA SHARON is a 62-year-old F who currently lives in [place], has a recent inpatient stay last month, and was admitted on 02/14/23 02:46 on a 201 voluntary commitment for suicidal statements at [facility]. Chief Complaint "[]". Review of Systems Sleep Information Total Hours of Sleep: 6.5 Meal Information Percent Meal Consumed - Breakfast: 50 Percent Meal Consumed - Lunch: 100 Percent Meal Consumed - Dinner: 80 Nutrition Comment: fluids and a snack provided Subjective Subjective Patient was seen & assessed and interval progress reviewed with treatment team nursing and social work. Physical Exam Vital Signs (Past 24 Hours) Last Vital Signs Temp 36.4 C L 02/18/23 06:43 Pulse 77 02/18/23 06:43 Resp 16 02/18/23 06:43 BP 116/78 02/18/23 06:43 Pulse Ox 96 02/14/23 04:03 O2 Del Method Room Air 02/14/23 04:03 Results & Data ([facility]) Current Inpatient Medications Current Inpatient Medications: Current Inpatient Medications Acetaminophen (Acetaminophen 325 Mg Tab) 650 mg PO Q4H PRN PRN Reason: Headache or Minor Fever Stop: 03/16/23 03:26 Al Hydrox/Mg Hydrox/Simethicone (Aluminum/Magnesium Susp 30 Ml Udc) 30 ml PO Q4H PRN PRN Reason: GI Upset Stop: 03/16/23 03:26 Aspirin (Aspirin 81 Mg Ectab) 81 mg PO QAM [facility] Stop: 03/16/23 08:59 Last Admin: 02/17/23 08:53 Dose: 81 mg Bismuth Subsalicylate (Bismuth Subsalicylate Liqd 236 Ml) 15 ml PO PRN PRN PRN Reason: Loose Stool Stop: 03/16/23 03:26 Celecoxib (Celecoxib 100 Mg Cap) 100 mg PO BID [facility] Stop: 03/16/23 09:59 Last Admin: 02/17/23 20:35 Dose: 100 mg Clozapine (Clozapine 100 Mg Tab) 300 mg PO HS [facility]; Protocol Stop: 03/16/23 21:59 Last Admin: 02/17/23 20:36 Dose: 300 mg Clozapine (Clozapine 25 Mg Tab) 50 mg PO BID [facility]; Protocol Stop: 03/16/23 09:59 Last Admin: 02/17/23 20:35 Dose: 50 mg Clozapine (Clozapine 100 Mg Tab) 100 mg PO QAM [facility]; Protocol Stop: 03/16/23 09:59 Last Admin: 02/17/23 08:53 Dose: 100 mg Gabapentin (Gabapentin 300 Mg Cap) 300 mg PO HS [facility] Stop: 03/16/23 21:59 Last Admin: 02/17/23 20:37 Dose: 300 mg Hydroxyzine HCl (Hydroxyzine Hcl 25 Mg Tab) 50 mg PO HSZ PRN PRN Reason: Insomnia Stop: 03/16/23 03:26 Hydroxyzine HCl (Hydroxyzine Hcl 25 Mg Tab) 25 mg PO Q4H PRN PRN Reason: Anxiety Stop: 03/16/23 03:26 Lamotrigine (Lamotrigine 100 Mg Tab) 200 mg PO BID [facility] Stop: 03/16/23 08:59 Last Admin: 02/17/23 20:35 Dose: 200 mg Levothyroxine Sodium (Levothyroxine Sodium 175 Mcg Tablet) 175 mcg PO DAILY [facility] Stop: 03/16/23 08:59 Last Admin: 02/17/23 08:54 Dose: 175 mcg Lidocaine (Lidocaine 5% 1 Patch) 1 patch TD DAILY@1700 [facility] Stop: 03/16/23 16:59 Last Admin: 02/17/23 17:32 Dose: 1 patch Magnesium Hydroxide (Magnesium Hydroxide Susp 30 Ml Udc) 30 ml PO DAILY PRN PRN Reason: Constipation Stop: 03/16/23 03:26 Meclizine HCl (Meclizine Hcl 25 Mg Tab) 25 mg PO QAM PRN PRN Reason: Dizziness Stop: 03/16/23 08:42 Metformin HCl (Metformin Hcl Er 500 Mg Tabcr) 1,000 mg PO DAILY [facility] Stop: 03/16/23 09:59 Last Admin: 02/17/23 08:54 Dose: 1,000 mg Miconazole Nitrate (Miconazole Nitrate Powder 85 Gm) 1 appln EXT PRN PRN PRN Reason: Rash Stop: 03/16/23 08:51 Miscellaneous (Remove Lidoderm Patch) 1 each N/A DAILY@0500 [facility] Stop: 03/17/23 04:59 Last Admin: 02/18/23 06:51 Dose: 1 each Pantoprazole Sodium (Pantoprazole 40 Mg Tab) 40 mg PO QAM [facility] Stop: 03/16/23 09:59 Last Admin: 02/17/23 08:54 Dose: 40 mg Polyethylene Glycol (Polyethylene (Miralax) 17 Gm Pack) 17 gm PO DAILY PRN PRN Reason: constipation Stop: 03/16/23 08:53 Quetiapine Fumarate (Quetiapine Fumarate 300 Mg Tablet) 300 mg PO HS [facility] Stop: 03/16/23 21:59 Last Admin: 02/17/23 20:37 Dose: 300 mg Quetiapine Fumarate (Quetiapine Fumarate 100 Mg Tablet) 100 mg PO QAM [facility] Stop: 03/16/23 09:59 Last Admin: 02/17/23 08:54 Dose: 100 mg Rosuvastatin Calcium (Rosuvastatin Calcium 20 Mg Tab) 20 mg PO HS [facility] Stop: 03/16/23 21:59 Last Admin: 02/17/23 20:37 Dose: 20 mg Sodium Chloride (Sodium Chloride 0.65% Na Soln 45 Ml ([place])) 1 - 2 sprays NA PRN PRN PRN Reason: Nasal Dryness/Congestion Stop: 03/16/23 03:26 Vitamin D (Cholecalciferol 1,000 Units 25 Mcg Tab) 1,000 units PO BID [facility] Stop: 03/16/23 09:59 Last Admin: 02/17/23 20:35 Dose: 1,000 units Mental Health & Subst Abuse Tx Therapist Name of Therapist: Rudy Umanzor Secondary Education Professor Name of Secondary Education Professor: AGNES Myers
[2023-02-18] MEDS: CHOLECALCIFEROL 1,000 UNITS 25 MCG TAB PO SCH ×2 (10:31→20:17)
[2023-02-18] MEDS: cloZAPine 100 MG TAB PO SCH ×2 (10:31→20:14)
[2023-02-18] MEDS: cloZAPine 25 MG TAB PO SCH ×2 (10:31→20:14)
[2023-02-18] MEDS: ASPIRIN 81 MG ECTAB PO SCH (10:31)
[2023-02-18] MEDS: CELECOXIB 100 MG CAP PO SCH ×2 (10:31→20:13)
[2023-02-18] MEDS: QUEtiapine FUMARATE 100 MG TABLET PO SCH (10:32)
[2023-02-18] MEDS: metFORMIN HCL ER 500 MG TABCR PO SCH (10:32)
[2023-02-18] MEDS: PANTOprazole 40 MG TAB PO SCH (10:32)
[2023-02-18] MEDS: LEVOTHYROXINE SODIUM 175 MCG TABLET PO SCH (10:32)
[2023-02-18] MEDS: lamoTRIgine 100 MG TAB PO SCH ×2 (10:32→20:13)
[2023-02-18 10:47] LABS: MDA negative; MDEA negative; MDMA (Ecstasy) Urine, Confirm negative
--- NOTE | 2023-02-18 15:12 | Psychiatric Progress Note ---
Date of Service February 18, 2023 Impression / Recommendations Impression 62 yo female with history of schizoaffective disorder with recent admission following medication non-adherence now rehospitalized for disorganization with delusions in context of suspected medication non-adherence. MNPR given severity of psychosis. 02/18/2023: Ongoing disorganization. No clearly delusional statements were made today on examination, although she has passing reference to 1-2 issues that I s uspect may be evidence of a delusional thought content. Overall, I spent a total of 35 minutes with this case, including review of chart, review of labwork, direct evaluation of the patient, coordination with nursing, treatment team, and documentation. (1) Schizoaffective disorder: 02/18/2023: Ms. Stoll remains emotionally labile, with soft, inappropriate laughter, alternating periodically with tearfulness. The emotional swings are linked to congruent thought content. She tells me that she is "sleepy all the time," and struggles to stay awake during the day. After discussing this with the treatment team, I am disposed to lower her dose of clozapine to clozapine 50 mg twice daily and 300 mg at bedtime. Plan 02/18/23: Due to apparent excess sedation, and because the patient's behavior has stabilized to some degree, I believe that a reduction in her dose of clozapine 50 mg twice a day, and 300 mg at bedtime. Today record indicates that the patient does appear to respond favorably to clozapine in combination with quetiapine, and so these 2 medications are continued, albeit at a lower dose. We will monitor for symptom exacerbation. 02/17/2023: continue current medications and tx plan. 02/16/2023: continue current medications and tx plan. 02/15/23: continue current meds as hx of encephalopathy around med compliance and reestablishing med compliance. She is readily redirectible in this setting without additional prns and does have periods of sedation. Patient has a hx of significant dystonia on Haldol and has been on current medications for a long time. looking at previous trials on file here, I do not see Abilify. 02/14/23: The patient was admitted to the [facility] ([facility]) on q15 min checks (behavioral with suicide precautions) for safety. The patient will participate in group, recreational, and milieu therapies and will be offered additional individual and family sessions as clinically appropriate. Resume home medications as reconstituted quickly last time but will likely need to revisit d/c Seroquel in favor of a MURRAY in combo with clozaril. Inventory Assets Strengths: engages with services, able to live independently for years. Personable and capable of forming alliances. Needs: improve med compliance and safety plan Suicide Risk Level Suicide Risk Level: Moderate (q15 min suicide checks) (making intermittent statements of SI that seems to be driven by disorganization and delusions but will continue to monitor for signs of depression/anxiety, feels safe in the hospital and alerts staff consistently when she feels in need of additional support or feels distressed) Suicide Risk Level Comments: Although the patient tells me that she sometimes wishes that she were , she emphasizes that she most definitely does not want to . She also convincingly asserts that she has no suicidal ideation, no suicidal intent, and no suicidal plan. Patient is also future oriented, and, for example, tells me that she is looking forward to eventually getting back to her supervised housing apartment and, hopefully, enjoying visits from her friend, Constance. Risk Factors Assessment Male: No : Yes Do You Have Access To A Gun?: No Health Problems: Yes Mental Health Diagnoses: Yes Substance Use Disorders: No Previous Attempt: No (The patient denies any history of suicide attempts, but history is long) Family History of Suicide: No Previous Psychiatric Hospitalization: Yes Hopelessness: No Protective Factors Assessment Employed: No Stable Relationships: Yes Interval History Identifying Information PAMELA STOLL is a 62-year-old F who currently lives in [place], has a recent inpatient stay last month, and was admitted on 02/14/23 02:46 on a 201 voluntary commitment for suicidal statements at [facility]. Chief Complaint "I have been on a lot of medications since I was 16.". Review of Systems Sleep Information Total Hours of Sleep: 6.5 Meal Information Percent Meal Consumed - Breakfast: 75 Percent Meal Consumed - Lunch: 75 Percent Meal Consumed - Dinner: 80 Nutrition Comment: fluids and a snack provided Subjective Subjective Patient was seen & assessed and interval progress reviewed with treatment team. I also saw the patient [id number] individually and the psychiatrist office on the behavioral health unit. Ms. Stoll was in the process of playing the [employer] game [employer] when I asked her to meet with me individually, and she excused herself by saying (apparently truthfully) that she was "just watching." The patient began the appointment by confirming my identity and making sure that she knew how to say my name. Initially, the patient told me that she was feeling "very happy" and that she was feeling "much better." She told me that she feels the reason for hospitalization (both currently and during the most recent previous admission) had been that her medications got "screwed up," and she seemed to blame a local pharmacy for this, rather than herself or her supervised housing providers. As above, the patient tells me that her "main problem" is the fact that she has been on "lots of mental health medications," and that this began when she had what she refers to as her "first breakdown," at the age of 16. This segued into the complaint that she does not want to be on psychiatric medications, or at least not the one she is on. With each medication discussed, the patient responded by saying "that is too strong. It makes me tired." She also said the same thing of metformin which she is also taking in addition to her psychiatric medications. The patient focused today on her family of origin, and tells me that she has been very close with her mother, and that she had had a very happy childhood. However, the patient's report is that her mother developed Parkinson's disease in her 60s or 70s, and in her late 70s of complications from Parkinson's disease. Upon telling me that she had lost her mother in 2004 when she was in her late 70s (the patient also told me that her mother was born in 1927, so the dates to seem to match up) she became tearful after having exhibited a fair amount of inappropriate laughter. Within this context, the patient talked about how much she misses her family, and also that she is that none of her relatives is living. She tells me that she was an only child, and that she was also a fairly late child. Also, she tells me that she has no living aunts or uncles, and her only living relative, to the best of her knowledge, is her first cousin, a man who lives in the state of [place] asked the patient to tell me about her supervised housing setting, and she tells me that it is "wonderful," and that she "[loves] living there," although she also acknowledges that she has not lived there for very longwhich is consistent with her history. I redirected the patient to talk about her strength and her support system, and she did mention the fact that she considers many of her friends to be her substitute "family." I reviewed the patient's medications with her, as indicated above, and she consistently told me that she felt the medications were "too strong." I refocused the patient's attention on the purposes of the medications, and she did acknowledge that she realizes that she has a mental disorder and needs to take medications, but wonders if they need to be quite so strong. At one point the patient said something such as, "a lot of people think I do not know where I am and what is going on. Today is Saturday, February 18, 2023. I met [facility]. I forgot your name, but your one of the psychiatrists. And I am a patient here." Several times, the patient gave voice to her expressed wish that "somebody would adopt [her]." However, when I gently patted her forearm and ask if she did not think she was "just a bit old" to be adopted, she laughed and said "of course!" However, she repeats that she wished that that would be possible because she had always de pendent on her family for support and protection, and wishes that she could recapitulate experience in the here and now. Physical Exam Psychiatric Orientation: alert and oriented x 3 She is also oriented to situation. Apperance: + disheveled However, after several days of both urinary and bowel incontinence, this is not continued today. For example, the patient excused herself to use "the bathroom" as we were walking towards my office. Nursing checked on her, and she was not incontinent, and she was able to use the toilet and flushed afterwards. Eye Contact: + fair eye contact Normal involuntary movements noted. The patient uses a walker and ambulates very slowly. Speech: + abnormal rate/rhythm/volume of speech (Patient's speech is spontaneous. She periodically breaks into a whisper.) Affect: + tearful affect, + labile affect (laughing inappropriately ) and mood congruent with affect Although the patient is tearful sometimes, she laughs, almost nervously, throughout the encounter today. Mood: + depressed mood (The patient also periodically tells me that she is "very happy!") and + anxious mood Thought Process: + tangential thought process Thought Content: + loneliness No delusional material was identified today. She briefly made reference to the fact that she is afraid that one of her friends is "dying," but then said something such as, "she is probably okay." Suicidal Thoughts: denies suicidal thoughts (intermittently expresses passive thoughts), denies suicidal plan and denies suicidal intent Homicidal Thoughts: denies homicidal thoughts Hallucinations: no auditory hallucinations (unclear if responding to internal stimuli) and no visual hallucinations Patient does periodically appear to be responding as if to internal auditory stimuli. But denies. Cognition: language grossly intact; + attention not intact Estimated Intelligence: consistent with education level Insight: + limited insight and + poor insight Patient does acknowledge that she has a mental illness and is a patient on an inpatient psychiatric unit. Judgment: + limited judgement and + poor judgement Ms. Stoll does acknowledge the need for inpatient psychiatric treatment. Vital Signs (Past 24 Hours) Last Vital Signs Temp 36.4 C L 02/18/23 06:43 Pulse 77 02/18/23 06:43 Resp 16 02/18/23 06:43 BP 116/78 02/18/23 06:43 Pulse Ox 96 02/14/23 04:03 O2 Del Method Room Air 02/14/23 04:03 Results & Data ([facility]) Laboratory Results Laboratory Results - last 24 hr 02/14/23 00:45 Urine MDEA negative MDMA negative Urine MDMA negative Current Inpatient Medications Current Inpatient Medications: Current Inpatient Medications Acetaminophen (Acetaminophen 325 Mg Tab) 650 mg PO Q4H PRN PRN Reason: Headache or Minor Fever Stop: 03/16/23 03:26 Al Hydrox/Mg Hydrox/Simethicone (Aluminum/Magnesium Susp 30 Ml Udc) 30 ml PO Q4H PRN PRN Reason: GI Upset Stop: 03/16/23 03:26 Aspirin (Aspirin 81 Mg Ectab) 81 mg PO QAM [facility] Stop: 03/16/23 08:59 Last Admin: 02/18/23 10:31 Dose: 81 mg Bismuth Subsalicylate (Bismuth Subsalicylate Liqd 236 Ml) 15 ml PO PRN PRN PRN Reason: Loose Stool Stop: 03/16/23 03:26 Celecoxib (Celecoxib 100 Mg Cap) 100 mg PO BID [facility] Stop: 03/16/23 09:59 Last Admin: 02/18/23 10:31 Dose: 100 mg Clozapine (Clozapine 100 Mg Tab) 300 mg PO HS [facility]; Protocol Stop: 03/16/23 21:59 Last Admin: 02/17/23 20:36 Dose: 300 mg Clozapine (Clozapine 25 Mg Tab) 50 mg PO BID [facility]; Protocol Stop: 03/16/23 09:59 Last Admin: 02/18/23 10:31 Dose: 50 mg Clozapine (Clozapine 100 Mg Tab) 100 mg PO QAM [facility]; Protocol Stop: 03/16/23 09:59 Last Admin: 02/18/23 10:31 Dose: 100 mg Gabapentin (Gabapentin 300 Mg Cap) 300 mg PO HS [facility] Stop: 03/16/23 21:59 Last Admin: 02/17/23 20:37 Dose: 300 mg Hydroxyzine HCl (Hydroxyzine Hcl 25 Mg Tab) 50 mg PO HSZ PRN PRN Reason: Insomnia Stop: 03/16/23 03:26 Hydroxyzine HCl (Hydroxyzine Hcl 25 Mg Tab) 25 mg PO Q4H PRN PRN Reason: Anxiety Stop: 03/16/23 03:26 Lamotrigine (Lamotrigine 100 Mg Tab) 200 mg PO BID [facility] Stop: 03/16/23 08:59 Last Admin: 02/18/23 10:32 Dose: 200 mg Levothyroxine Sodium (Levothyroxine Sodium 175 Mcg Tablet) 175 mcg PO DAILY [facility] Stop: 03/16/23 08:59 Last Admin: 02/18/23 10:32 Dose: 175 mcg Lidocaine (Lidocaine 5% 1 Patch) 1 patch TD DAILY@1700 [facility] Stop: 03/16/23 16:59 Last Admin: 02/17/23 17:32 Dose: 1 patch Magnesium Hydroxide (Magnesium Hydroxide Susp 30 Ml Udc) 30 ml PO DAILY PRN PRN Reason: Constipation Stop: 03/16/23 03:26 Meclizine HCl (Meclizine Hcl 25 Mg Tab) 25 mg PO QAM PRN PRN Reason: Dizziness Stop: 03/16/23 08:42 Metformin HCl (Metformin Hcl Er 500 Mg Tabcr) 1,000 mg PO DAILY [facility] Stop: 03/16/23 09:59 Last Admin: 02/18/23 10:32 Dose: 1,000 mg Miconazole Nitrate (Miconazole Nitrate Powder 85 Gm) 1 appln EXT PRN PRN PRN Reason: Rash Stop: 03/16/23 08:51 Miscellaneous (Remove Lidoderm Patch) 1 each N/A DAILY@0500 [facility] Stop: 03/17/23 04:59 Last Admin: 02/18/23 06:51 Dose: 1 each Pantoprazole Sodium (Pantoprazole 40 Mg Tab) 40 mg PO QAM [facility] Stop: 03/16/23 09:59 Last Admin: 02/18/23 10:32 Dose: 40 mg Polyethylene Glycol (Polyethylene (Miralax) 17 Gm Pack) 17 gm PO DAILY PRN PRN Reason: constipation Stop: 03/16/23 08:53 Quetiapine Fumarate (Quetiapine Fumarate 300 Mg Tablet) 300 mg PO HS [facility] Stop: 03/16/23 21:59 Last Admin: 02/17/23 20:37 Dose: 300 mg Quetiapine Fumarate (Quetiapine Fumarate 100 Mg Tablet) 100 mg PO QAM [facility] Stop: 03/16/23 09:59 Last Admin: 02/18/23 10:32 Dose: 100 mg Rosuvastatin Calcium (Rosuvastatin Calcium 20 Mg Tab) 20 mg PO HS [facility] Stop: 03/16/23 21:59 Last Admin: 02/17/23 20:37 Dose: 20 mg Sodium Chloride (Sodium Chloride 0.65% Na Soln 45 Ml ([place])) 1 - 2 sprays NA PRN PRN PRN Reason: Nasal Dryness/Congestion Stop: 03/16/23 03:26 Vitamin D (Cholecalciferol 1,000 Units 25 Mcg Tab) 1,000 units PO BID [facility] Stop: 03/16/23 09:59 Last Admin: 02/18/23 10:31 Dose: 1,000 units Mental Health & Subst Abuse Tx Therapist Name of Therapist: Rudy Umanzor Hotel Lobby Concierge Name of Hotel Lobby Concierge: AGNES Myers
[2023-02-18] MEDS: LIDOCAINE 5% 1 PATCH TD SCH (18:35)
[2023-02-18] MEDS: ROSUVASTATIN CALCIUM 20 MG TAB PO SCH (20:13)
[2023-02-18] MEDS: GABAPENTIN 300 MG CAP PO SCH (20:13)
[2023-02-18] MEDS: QUEtiapine FUMARATE 300 MG TABLET PO SCH (20:13)
[2023-02-19] MEDS: CELECOXIB 100 MG CAP PO SCH ×2 (08:15→21:24)
[2023-02-19] MEDS: ASPIRIN 81 MG ECTAB PO SCH (08:15)
[2023-02-19] MEDS: cloZAPine 25 MG TAB PO SCH (08:16)
[2023-02-19] MEDS: lamoTRIgine 100 MG TAB PO SCH ×2 (08:16→21:25)
[2023-02-19] MEDS: CHOLECALCIFEROL 1,000 UNITS 25 MCG TAB PO SCH ×2 (08:16→21:25)
[2023-02-19] MEDS: metFORMIN HCL ER 500 MG TABCR PO SCH (08:17)
[2023-02-19] MEDS: QUEtiapine FUMARATE 100 MG TABLET PO SCH (08:17)
[2023-02-19] MEDS: PANTOprazole 40 MG TAB PO SCH (08:17)
[2023-02-19] MEDS: LEVOTHYROXINE SODIUM 175 MCG TABLET PO SCH (08:17)
[2023-02-19 08:46] LABS: Basophils # (auto) 0.04 K/uL (0.00-0.20); Basophils % (auto) 0.8 %; Eosinophils # (auto) 0.11 K/uL (0.00-0.50); Eosinophils % (auto) 2.3 %; Hematocrit (blood only) 33.3 % (37.0-47.0); Hemoglobin 10.9 g/dl (12.0-16.0); Immature Granulocytes # (auto) 0.02 K/uL (0.01-0.20); Immature Granulocytes % (auto) 0.4 %; Lymphocytes # (auto) 1.21 K/uL (1.20-3.40); Mean Corpuscular Hemoglobin 30.3 pg (25.0-34.0); Mean Corpuscular Hgb Conc 32.7 g/dL (32.0-36.0); Mean Corpuscular Volume 92.5 fL (80.0-100.0); Mean Platelet Volume 9.4 fL (9.4-12.4); Monocytes # (auto) 0.31 K/uL (0.11-0.59); Monocytes % (auto) 6.4 %; Neutrophils # (auto) 3.15 K/uL (1.40-6.50); Neutrophils % (auto) 65.1 %; Platelet Count 265 K/uL (130-400); RDW Coefficient of Variation 13.8 % (11.5-14.5); RDW Standard Deviation 47.1 fL (36.4-46.3); White Blood Count 4.84 K/ul (4.8-10.8)
--- NOTE | 2023-02-19 11:10 | Psychiatric Progress Note ---
Date of Service February 19, 2023 Impression / Recommendations (1) Schizoaffective disorder: 02/19/2023: We omitted the patient's morning dose of clonazepam, starting this morning, and the patient spontaneously tells me that she is feeling "a lot better," and, specifically, is that she is feeling less sleepy. On examination today, the patient was clearly more alert, and substantially less emotionally labile. She continues to laugh nervously at times, but did not break into tears, even when discussing her mother's . She also laughed appropriately number of times, seems to be able to appreciate irony, and uses humor. For example, the patient reiterated that she has yesterday that she "wishes" that she did not have to take psychiatric medications and wants to see if she could possibly come off psychiatric medications. She had previously said that the reason she was hospitalized was that, in fact, she had "messed up" her psychiatric medications and, also, this had led to the most recent previous psychiatric hospitalization. In the somewhat jocular manner, I reminded the patient of the contradiction between telling me that she did up in the hospital after stopping her medications, and her expressed desire to not take medications. The patient got the Humira immediately, laughed out loud, look me in the eye, and said "yes, I know. I have to take them. They help. I just wish I did not have to." Patient also made but I believe may be an important clarification today. She convincingly told me that she is aware that she periodically references suicide and/or wish, but she explains that she "just says this sometimes," but is never serious about it. She reiterates that she has never actually wanted to . She tells me that she has no history of any suicide attempts, and has never seriously contemplated suicide. Thus far, the patient has tolerated the lower dose of clozapine and is assessed as being more alert, less emotionally labile, and apparently free of psychotic symptoms. She remains a fall risk and I needed reminders several times to "take it slow" if she was positioning her walker, or preparing to be seated in the office. Present on Admission?: Yes Suicide Risk Level Suicide Risk Level: Moderate (q15 min suicide checks) (Ms. Stoll continues to report that she feels safe in the hospital and alerts staff consistently when she feels in need of additional support or feels distressed. Today she convincingly explains that she sometimes makes suicidal statements, or expresses a wish to , but has never actually been adame) Suicide Risk Level Comments: Although the patient tells me that she sometimes wishes that she were , she emphasizes that she most definitely does not want to . She also convincingly asserts that she has no suicidal ideation, no suicidal intent, and no suicidal plan. Patient is also future oriented, and, for example, tells me that she is looking forward to eventually getting back to her supervised housing apartment and, hopefully, enjoying visits from her friend, Constance. Risk Factors Assessment Male: No : Yes Do You Have Access To A Gun?: No Health Problems: Yes Mental Health Diagnoses: Yes Substance Use Disorders: No Previous Attempt: No (The patient denies any history of suicide attempts, but history is long) Family History of Suicide: No Previous Psychiatric Hospitalization: Yes Hopelessness: No Protective Factors Assessment Employed: No Stable Relationships: Yes Interval History Identifying Information Ms. Stoll is a 62-year-old woman who carries a primary psychiatric diagnosis of schizoaffective disorder, bipolar type. Chief Complaint "I am feeling better today". Review of Systems Sleep Information Total Hours of Sleep: 8.5 Meal Information Percent Meal Consumed - Breakfast: 90 Percent Meal Consumed - Lunch: 75 Percent Meal Consumed - Dinner: 100 Nutrition Comment: fluids and a snack provided Subjective Subjective Patient was seen & assessed and interval progress reviewed with the treatment team. In addition, I saw the patient individually this morning in the psychiatric provider's office. The patient began today's encounter by telling me that she is feeling much better, and says that in particular she slept well last night. Also, she notes that she is feeling less sleepy today than she had been, although she appeared to be nodding off when I approached her for today's meeting while she was in the day room with other patients. I asked her about this, and she said, "I was just resting my eyes." We touched on several points that we had discussed yesterday. She reiterated that she misses her mother, woman who reportedly at the age of 78 of Parkinson's disease. Ms. Stoll notes that it is sometimes poignant for her to come to [facility] because this is where her mother in 2004. However, unlike today, the patient did not become tearful and, sitting, said something such as "I am glad I had her as long as I did. Look at Andreas Pickens. He will be suzan if he makes it to a 78." (Andreas Pickens is an actor who developed Parkinson's disease at a young age.) Also, spontaneously, the patient said that she is eager to be able to go back home. She talks about her new apartment and what she refers to as the "[facility]," which is a supervised housing establishment. Ms. Stoll also indicates that she had only been there "about a week," and that she ended up coming back to the hospital because she "got [her] medicines all mixed up," a circumstance that she attributes to her report that the pharmacy sent her medications in 2 separate batches, and she was confused by thathe believes the staff may have also been confused. She also reiterates today that she "wishes" that she did not have to take medication, but acknowledges that she realizes that she has to take medications in order to stay well. I reminded her that she needs to reconcile the fact that when she got her medications "screwed up" she ended up back in the hospital, and she laughed, appropriately, and said, "good point." Her main objection to clozapine is the daytime sedation. I also was able to talk to her about the risk of agranulocytosis, and explained that we and her outpatient doctors will be following her white blood cell count regularly. I explained that low white blood cell count can lead to infections, and she replied by indicating that she was aware of this. Also, the patient said that she wanted to clarify something that she had said yesterday, and that was that she had said that she did not want to live, but more than that she did not want to . Ms. Stoll clarifies that she has never actually had any suicidal intent or plan, and has never made a suicide attempt. She states definitively, "honestly, I have never been suicidal. This just something I say sometimes." She also reiterates there is no family history of suicide attempts or completions. Physical Exam Psychiatric Orientation: alert and oriented x 3 Apperance: + disheveled Eye Contact: + fair eye contact Speech: normal rate/rhythm/volume of speech (The patient does not whisper today. She is somewhat dysarthric.) Affect: + depressed affect, + tearful affect, + labile affect (laughing inappropriately ) and mood congruent with affect Mood: + depressed mood (The patient also periodically tells me that she is "very happy!") and + anxious mood Thought Process: + tangential thought process Thought Content: + loneliness; no delusions Suicidal Thoughts: denies suicidal thoughts ("I sometimes say I want to , but I just say that. I do not want to .), denies suicidal plan and denies suicidal intent Homicidal Thoughts: denies homicidal thoughts Hallucinations: no auditory hallucinations and no visual hallucinations Cognition: language grossly intact; + attention not intact Estimated Intelligence: consistent with education level Insight: + limited insight (The patient tells me that her diagnosis is schizoaffective disorder) Judgment: + limited judgement Vital Signs (Past 24 Hours) Last Vital Signs Temp 36.6 C 02/19/23 06:51 Pulse 82 02/19/23 06:51 Resp 16 02/19/23 06:51 BP 141/90 H 02/19/23 06:51 Pulse Ox 96 02/14/23 04:03 O2 Del Method Room Air 02/14/23 04:03 Results & Data ([facility]) Laboratory Results Laboratory Results - last 24 hr 02/19/23 08:29 WBC 4.84 RBC 3.60 L Hgb 10.9 L Hct 33.3 L MCV 92.5 MCH 30.3 MCHC 32.7 RDW Std Deviation 47.1 H RDW Coeff of Radha 13.8 Plt Count 265 MPV 9.4 Immature Gran % (Auto) 0.4 Neut % (Auto) 65.1 Lymph % (Auto) 25.0 [place] % (Auto) 6.4 Eos % (Auto) 2.3 Baso % (Auto) 0.8 Neut # (Auto) 3.15 Lymph # (Auto) 1.21 [place] # (Auto) 0.31 Eos # (Auto) 0.11 Baso # (Auto) 0.04 Immature Gran # (Auto) 0.02 Current Inpatient Medications Current Inpatient Medications: Current Inpatient Medications Acetaminophen (Acetaminophen 325 Mg Tab) 650 mg PO Q4H PRN PRN Reason: Headache or Minor Fever Stop: 03/16/23 03:26 Al Hydrox/Mg Hydrox/Simethicone (Aluminum/Magnesium Susp 30 Ml Udc) 30 ml PO Q4H PRN PRN Reason: GI Upset Stop: 03/16/23 03:26 Aspirin (Aspirin 81 Mg Ectab) 81 mg PO QAM [facility] Stop: 03/16/23 08:59 Last Admin: 02/19/23 08:15 Dose: 81 mg Bismuth Subsalicylate (Bismuth Subsalicylate Liqd 236 Ml) 15 ml PO PRN PRN PRN Reason: Loose Stool Stop: 03/16/23 03:26 Celecoxib (Celecoxib 100 Mg Cap) 100 mg PO BID [facility] Stop: 03/16/23 09:59 Last Admin: 02/19/23 08:15 Dose: 100 mg Clozapine (Clozapine 100 Mg Tab) 300 mg PO HS [facility]; Protocol Stop: 03/16/23 21:59 Last Admin: 02/18/23 20:14 Dose: 300 mg Gabapentin (Gabapentin 300 Mg Cap) 300 mg PO HS [facility] Stop: 03/16/23 21:59 Last Admin: 02/18/23 20:13 Dose: 300 mg Hydroxyzine HCl (Hydroxyzine Hcl 25 Mg Tab) 50 mg PO HSZ PRN PRN Reason: Insomnia Stop: 03/16/23 03:26 Hydroxyzine HCl (Hydroxyzine Hcl 25 Mg Tab) 25 mg PO Q4H PRN PRN Reason: Anxiety Stop: 03/16/23 03:26 Lamotrigine (Lamotrigine 100 Mg Tab) 200 mg PO BID [facility] Stop: 03/16/23 08:59 Last Admin: 02/19/23 08:16 Dose: 200 mg Levothyroxine Sodium (Levothyroxine Sodium 175 Mcg Tablet) 175 mcg PO DAILY [facility] Stop: 03/16/23 08:59 Last Admin: 02/19/23 08:17 Dose: 175 mcg Lidocaine (Lidocaine 5% 1 Patch) 1 patch TD DAILY@1700 [facility] Stop: 03/16/23 16:59 Last Admin: 02/18/23 18:35 Dose: 1 patch Magnesium Hydroxide (Magnesium Hydroxide Susp 30 Ml Udc) 30 ml PO DAILY PRN PRN Reason: Constipation Stop: 03/16/23 03:26 Meclizine HCl (Meclizine Hcl 25 Mg Tab) 25 mg PO QAM PRN PRN Reason: Dizziness Stop: 03/16/23 08:42 Metformin HCl (Metformin Hcl Er 500 Mg Tabcr) 1,000 mg PO DAILY [facility] Stop: 03/16/23 09:59 Last Admin: 02/19/23 08:17 Dose: 1,000 mg Miconazole Nitrate (Miconazole Nitrate Powder 85 Gm) 1 appln EXT PRN PRN PRN Reason: Rash Stop: 03/16/23 08:51 Miscellaneous (Remove Lidoderm Patch) 1 each N/A DAILY@0500 [facility] Stop: 03/17/23 04:59 Last Admin: 02/19/23 05:09 Dose: 1 each Pantoprazole Sodium (Pantoprazole 40 Mg Tab) 40 mg PO QAM [facility] Stop: 03/16/23 09:59 Last Admin: 02/19/23 08:17 Dose: 40 mg Polyethylene Glycol (Polyethylene (Miralax) 17 Gm Pack) 17 gm PO DAILY PRN PRN Reason: constipation Stop: 03/16/23 08:53 Quetiapine Fumarate (Quetiapine Fumarate 300 Mg Tablet) 300 mg PO HS [facility] Stop: 03/16/23 21:59 Last Admin: 02/18/23 20:13 Dose: 300 mg Quetiapine Fumarate (Quetiapine Fumarate 100 Mg Tablet) 100 mg PO QAM [facility] Stop: 03/16/23 09:59 Last Admin: 02/19/23 08:17 Dose: 100 mg Rosuvastatin Calcium (Rosuvastatin Calcium 20 Mg Tab) 20 mg PO HS [facility] Stop: 03/16/23 21:59 Last Admin: 02/18/23 20:13 Dose: 20 mg Sodium Chloride (Sodium Chloride 0.65% Na Soln 45 Ml (Denio)) 1 - 2 sprays NA PRN PRN PRN Reason: Nasal Dryness/Congestion Stop: 03/16/23 03:26 Vitamin D (Cholecalciferol 1,000 Units 25 Mcg Tab) 1,000 units PO BID [facility] Stop: 03/16/23 09:59 Last Admin: 02/19/23 08:16 Dose: 1,000 units Mental Health & Subst Abuse Tx Therapist Name of Therapist: Rudy Umanzor Mattress Inspector Name of Mattress Inspector: AGNES Myers (1) Schizoaffective disorder Schizoaffective disorder type: bipolar Qualified Code(s): F25.0 - Schizoaffective disorder, bipolar type
--- NOTE | 2023-02-19 15:39 | Psychiatric Progress Note ---
Date of Service February 19, 2023 Impression / Recommendations (1) Schizoaffective disorder: 02/19/2023: We omitted the patient's morning dose of clonazepam, starting this morning, and the patient spontaneously tells me that she is feeling "a lot better," and, specifically, is that she is feeling less sleepy. On examination today, the patient was clearly more alert, and substantially less emotionally labile. She continues to laugh nervously at times, but did not break into tears, even when discussing her mother's . She also laughed appropriately number of times, seems to be able to appreciate irony, and uses humor. For example, the patient reiterated that she has yesterday that she "wishes" that she did not have to take psychiatric medications and wants to see if she could possibly come off psychiatric medications. She had previously said that the reason she was hospitalized was that, in fact, she had "messed up" her psychiatric medications and, also, this had led to the most recent previous psychiatric hospitalization. In the somewhat jocular manner, I reminded the patient of the contradiction between telling me that she did up in the hospital after stopping her medications, and her expressed desire to not take medications. The patient got the Humira immediately, laughed out loud, look me in the eye, and said "yes, I know. I have to take them. They help. I just wish I did not have to." Patient also made but I believe may be an important clarification today. She convincingly told me that she is aware that she periodically references suicide and/or wish, but she explains that she "just says this sometimes," but is never serious about it. She reiterates that she has never actually wanted to . She tells me that she has no history of any suicide attempts, and has never seriously contemplated suicide. Thus far, the patient has tolerated the lower dose of clozapine and is assessed as being more alert, less emotionally labile, and apparently free of psychotic symptoms. She remains a fall risk and I needed reminders several times to "take it slow" if she was positioning her walker, or preparing to be seated in the office. Suicide Risk Level Suicide Risk Level: Moderate (q15 min suicide checks) (Ms. Stoll continues to report that she feels safe in the hospital and alerts staff consistently when she feels in need of additional support or feels distressed. Today she convincingly explains that she sometimes makes suicidal statements, or expresses a wish to , but has never actually been adame) Suicide Risk Level Comments: Although the patient tells me that she sometimes wishes that she were , she emphasizes that she most definitely does not want to . She also convincingly asserts that she has no suicidal ideation, no suicidal intent, and no suicidal plan. Patient is also future oriented, and, for example, tells me that she is looking forward to eventually getting back to her supervised housing apartment and, hopefully, enjoying visits from her friend, Constance. Risk Factors Assessment Male: No : Yes Do You Have Access To A Gun?: No Health Problems: Yes Mental Health Diagnoses: Yes Substance Use Disorders: No Previous Attempt: No (The patient denies any history of suicide attempts, but history is long) Family History of Suicide: No Previous Psychiatric Hospitalization: Yes Hopelessness: No Protective Factors Assessment Employed: No Stable Relationships: Yes Interval History Identifying Information Ms. Stoll is a 62-year-old woman who carries a primary psychiatric diagnosis of schizoaffective disorder, bipolar type. Chief Complaint "[]". Review of Systems Sleep Information Total Hours of Sleep: 8.5 Meal Information Percent Meal Consumed - Breakfast: 90 Percent Meal Consumed - Lunch: 100 Percent Meal Consumed - Dinner: 100 Nutrition Comment: fluids and a snack provided Subjective Subjective Patient was seen & assessed and interval progress reviewed with [treatment team] [nursing and social work] Physical Exam Vital Signs (Past 24 Hours) Last Vital Signs Temp 36.6 C 02/19/23 06:51 Pulse 82 02/19/23 06:51 Resp 16 02/19/23 06:51 BP 141/90 H 02/19/23 06:51 Pulse Ox 96 02/14/23 04:03 O2 Del Method Room Air 02/14/23 04:03 Results & Data ([facility] [email or web address] Laboratory Results Laboratory Results - last 24 hr 02/19/23 08:29 WBC 4.84 RBC 3.60 L Hgb 10.9 L Hct 33.3 L MCV 92.5 MCH 30.3 MCHC 32.7 RDW Std Deviation 47.1 H RDW Coeff of Radha 13.8 Plt Count 265 MPV 9.4 Immature Gran % (Auto) 0.4 Neut % (Auto) 65.1 Lymph % (Auto) 25.0 [place] % (Auto) 6.4 Eos % (Auto) 2.3 Baso % (Auto) 0.8 Neut # (Auto) 3.15 Lymph # (Auto) 1.21 [place] # (Auto) 0.31 Eos # (Auto) 0.11 Baso # (Auto) 0.04 Immature Gran # (Auto) 0.02 Current Inpatient Medications Current Inpatient Medications: Current Inpatient Medications Acetaminophen (Acetaminophen 325 Mg Tab) 650 mg PO Q4H PRN PRN Reason: Headache or Minor Fever Stop: 03/16/23 03:26 Al Hydrox/Mg Hydrox/Simethicone (Aluminum/Magnesium Susp 30 Ml Udc) 30 ml PO Q4H PRN PRN Reason: GI Upset Stop: 03/16/23 03:26 Aspirin (Aspirin 81 Mg Ectab) 81 mg PO QAM [facility] Stop: 03/16/23 08:59 Last Admin: 02/19/23 08:15 Dose: 81 mg Bismuth Subsalicylate (Bismuth Subsalicylate Liqd 236 Ml) 15 ml PO PRN PRN PRN Reason: Loose Stool Stop: 03/16/23 03:26 Celecoxib (Celecoxib 100 Mg Cap) 100 mg PO BID [facility] Stop: 03/16/23 09:59 Last Admin: 02/19/23 08:15 Dose: 100 mg Clozapine (Clozapine 100 Mg Tab) 300 mg PO HS [facility]; Protocol Stop: 03/16/23 21:59 Last Admin: 02/18/23 20:14 Dose: 300 mg Clozapine (Clozapine 25 Mg Tab) 50 mg PO DAILY [facility] Stop: 03/22/23 08:59 Gabapentin (Gabapentin 300 Mg Cap) 300 mg PO HS [facility] Stop: 03/16/23 21:59 Last Admin: 02/18/23 20:13 Dose: 300 mg Hydroxyzine HCl (Hydroxyzine Hcl 25 Mg Tab) 50 mg PO HSZ PRN PRN Reason: Insomnia Stop: 03/16/23 03:26 Hydroxyzine HCl (Hydroxyzine Hcl 25 Mg Tab) 25 mg PO Q4H PRN PRN Reason: Anxiety Stop: 03/16/23 03:26 Lamotrigine (Lamotrigine 100 Mg Tab) 200 mg PO BID [facility] Stop: 03/16/23 08:59 Last Admin: 02/19/23 08:16 Dose: 200 mg Levothyroxine Sodium (Levothyroxine Sodium 175 Mcg Tablet) 175 mcg PO DAILY [facility] Stop: 03/16/23 08:59 Last Admin: 02/19/23 08:17 Dose: 175 mcg Lidocaine (Lidocaine 5% 1 Patch) 1 patch TD DAILY@1700 [facility] Stop: 03/16/23 16:59 Last Admin: 02/18/23 18:35 Dose: 1 patch Magnesium Hydroxide (Magnesium Hydroxide Susp 30 Ml Udc) 30 ml PO DAILY PRN PRN Reason: Constipation Stop: 03/16/23 03:26 Meclizine HCl (Meclizine Hcl 25 Mg Tab) 25 mg PO QAM PRN PRN Reason: Dizziness Stop: 03/16/23 08:42 Metformin HCl (Metformin Hcl Er 500 Mg Tabcr) 1,000 mg PO DAILY [facility] Stop: 03/16/23 09:59 Last Admin: 02/19/23 08:17 Dose: 1,000 mg Miconazole Nitrate (Miconazole Nitrate Powder 85 Gm) 1 appln EXT PRN PRN PRN Reason: Rash Stop: 03/16/23 08:51 Miscellaneous (Remove Lidoderm Patch) 1 each N/A DAILY@0500 [facility] Stop: 03/17/23 04:59 Last Admin: 02/19/23 05:09 Dose: 1 each Pantoprazole Sodium (Pantoprazole 40 Mg Tab) 40 mg PO QAM [facility] Stop: 03/16/23 09:59 Last Admin: 02/19/23 08:17 Dose: 40 mg Polyethylene Glycol (Polyethylene (Miralax) 17 Gm Pack) 17 gm PO DAILY PRN PRN Reason: constipation Stop: 03/16/23 08:53 Quetiapine Fumarate (Quetiapine Fumarate 300 Mg Tablet) 300 mg PO HS [facility] Stop: 03/16/23 21:59 Last Admin: 02/18/23 20:13 Dose: 300 mg Quetiapine Fumarate (Quetiapine Fumarate 100 Mg Tablet) 100 mg PO QAM [facility] Stop: 03/16/23 09:59 Last Admin: 02/19/23 08:17 Dose: 100 mg Rosuvastatin Calcium (Rosuvastatin Calcium 20 Mg Tab) 20 mg PO HS [facility] Stop: 03/16/23 21:59 Last Admin: 02/18/23 20:13 Dose: 20 mg Sodium Chloride (Sodium Chloride 0.65% Na Soln 45 Ml ([place])) 1 - 2 sprays NA PRN PRN PRN Reason: Nasal Dryness/Congestion Stop: 03/16/23 03:26 Vitamin D (Cholecalciferol 1,000 Units 25 Mcg Tab) 1,000 units PO BID [facility] Stop: 03/16/23 09:59 Last Admin: 02/19/23 08:16 Dose: 1,000 units Mental Health & Subst Abuse Tx Therapist Name of Therapist: Rudy Umanzor Track Oiler Name of Track Oiler: AGNES Myers (1) Schizoaffective disorder Schizoaffective disorder type: bipolar Qualified Code(s): F25.0 - Schizoaffective disorder, bipolar type
[2023-02-19] MEDS: LIDOCAINE 5% 1 PATCH TD SCH (18:09)
[2023-02-19] MEDS: cloZAPine 100 MG TAB PO SCH (21:26)
[2023-02-19] MEDS: GABAPENTIN 300 MG CAP PO SCH (21:26)
[2023-02-19] MEDS: QUEtiapine FUMARATE 300 MG TABLET PO SCH (21:26)
[2023-02-19] MEDS: ROSUVASTATIN CALCIUM 20 MG TAB PO SCH (21:27)
[2023-02-20] MEDS: LEVOTHYROXINE SODIUM 175 MCG TABLET PO SCH (09:02)
[2023-02-20] MEDS: cloZAPine 25 MG TAB PO SCH (09:02)
[2023-02-20] MEDS: ASPIRIN 81 MG ECTAB PO SCH (09:03)
[2023-02-20] MEDS: metFORMIN HCL ER 500 MG TABCR PO SCH (09:04)
[2023-02-20] MEDS: lamoTRIgine 100 MG TAB PO SCH ×2 (09:05→20:16)
[2023-02-20] MEDS: CELECOXIB 100 MG CAP PO SCH ×2 (09:05→20:15)
[2023-02-20] MEDS: PANTOprazole 40 MG TAB PO SCH (09:06)
[2023-02-20] MEDS: CHOLECALCIFEROL 1,000 UNITS 25 MCG TAB PO SCH ×2 (09:06→20:14)
[2023-02-20] MEDS: QUEtiapine FUMARATE 100 MG TABLET PO SCH ×2 (09:06→20:21)
--- NOTE | 2023-02-20 09:19 | Psychiatric Progress Note ---
Date of Service February 20, 2023 Impression / Recommendations Impression 62 yo female with history of schizoaffective disorder with recent admission following medication non-adherence now rehospitalized for disorganization with delusions in context of suspected medication non-adherence. MNPR given psychosis, periods of urinary/bowel incontinence 02/20/2023: Ongoing periods of mood lability but behavior is becoming more organized, interacting more appropriately with peers and becoming more independent again with her ADLs. She is tolerating the adjustment in clozapine without evidence for any worsening of psychosis and reports less fatigue. Overall, I spent a total of 30 minutes with this case, including review of chart, review of labwork, direct evaluation of the patient, coordination with nursing, discussion with the treatment team, and documentation. (1) Schizoaffective disorder: Suicide Risk Level Suicide Risk Level: Moderate (q15 min suicide checks) (Ms. Stoll continues to report that she feels safe in the hospital and alerts staff consistently when she feels in need of additional support or feels distressed. She denies SI today. ) Risk Factors Assessment Male: No : Yes Do You Have Access To A Gun?: No Health Problems: Yes Mental Health Diagnoses: Yes Substance Use Disorders: No Previous Attempt: No (The patient denies any history of suicide attempts, but history is long) Family History of Suicide: No Previous Psychiatric Hospitalization: Yes Hopelessness: No Protective Factors Assessment Employed: No Stable Relationships: Yes Interval History Identifying Information PAMELA STOLL is a 62-year-old F who currently lives in [place], has a recent inpatient stay last month, and was admitted on 02/14/23 02:46 on a 201 voluntary commitment for suicidal statements at [facility]. Chief Complaint "I'm sad because I'm missing my friend's birthday". Review of Systems Sleep Information Total Hours of Sleep: 8.25 Sleep Comments: incontinent of urine upon awakening Meal Information Percent Meal Consumed - Breakfast: 90 Percent Meal Consumed - Lunch: 100 Percent Meal Consumed - Dinner: 50 Nutrition Comment: fluids and a snack provided Subjective Subjective Patient was seen & assessed and interval progress reviewed with treatment team nursing and social work. Incontinent of urine last night, low mood last night after meeting with her CM and feeling lonely. Today interactive with peers but intermittently tearful. Slightly tearful in meeting with me which she describes as sadness about missing her friend's birthday and worrying that her friend, who is 80, may not live much longer. Denies any medication side effects. Feels that having more support as she adjusts to her new routine at her new place will be helpful as she feels this contributed to her missing her medications. Physical Exam Psychiatric Orientation: alert and oriented x 3 Apperance: + disheveled Eye Contact: + fair eye contact Speech: normal rate/rhythm/volume of speech Affect: + tearful affect and + labile affect (laughing inappropriately at times) Mood: + depressed mood and + anxious mood Thought Process: + tangential thought process Thought Content: + loneliness; no delusions Suicidal Thoughts: denies suicidal thoughts, denies suicidal plan and denies suicidal intent Homicidal Thoughts: denies homicidal thoughts Hallucinations: no auditory hallucinations and no visual hallucinations Cognition: language grossly intact; + attention not intact Estimated Intelligence: consistent with education level Insight: + limited insight Judgment: + limited judgement Vital Signs (Past 24 Hours) Last Vital Signs Temp 37 C 02/20/23 06:53 Pulse 83 02/20/23 06:54 Resp 16 02/20/23 06:53 BP 113/80 02/20/23 06:54 Pulse Ox 96 02/14/23 04:03 O2 Del Method Room Air 02/14/23 04:03 Results & Data ([facility]) Current Inpatient Medications Current Inpatient Medications: Current Inpatient Medications Acetaminophen (Acetaminophen 325 Mg Tab) 650 mg PO Q4H PRN PRN Reason: Headache or Minor Fever Stop: 03/16/23 03:26 Al Hydrox/Mg Hydrox/Simethicone (Aluminum/Magnesium Susp 30 Ml Udc) 30 ml PO Q4H PRN PRN Reason: GI Upset Stop: 03/16/23 03:26 Aspirin (Aspirin 81 Mg Ectab) 81 mg PO QAM [facility] Stop: 03/16/23 08:59 Last Admin: 02/20/23 09:03 Dose: 81 mg Bismuth Subsalicylate (Bismuth Subsalicylate Liqd 236 Ml) 15 ml PO PRN PRN PRN Reason: Loose Stool Stop: 03/16/23 03:26 Celecoxib (Celecoxib 100 Mg Cap) 100 mg PO BID [facility] Stop: 03/16/23 09:59 Last Admin: 02/20/23 09:05 Dose: 100 mg Clozapine (Clozapine 100 Mg Tab) 300 mg PO HS [facility]; Protocol Stop: 03/16/23 21:59 Last Admin: 02/19/23 21:26 Dose: 300 mg Clozapine (Clozapine 25 Mg Tab) 50 mg PO DAILY [facility] Stop: 03/22/23 08:59 Last Admin: 02/20/23 09:02 Dose: 50 mg Gabapentin (Gabapentin 300 Mg Cap) 300 mg PO HS [facility] Stop: 03/16/23 21:59 Last Admin: 02/19/23 21:26 Dose: 300 mg Hydroxyzine HCl (Hydroxyzine Hcl 25 Mg Tab) 50 mg PO HSZ PRN PRN Reason: Insomnia Stop: 03/16/23 03:26 Hydroxyzine HCl (Hydroxyzine Hcl 25 Mg Tab) 25 mg PO Q4H PRN PRN Reason: Anxiety Stop: 03/16/23 03:26 Lamotrigine (Lamotrigine 100 Mg Tab) 200 mg PO BID [facility] Stop: 03/16/23 08:59 Last Admin: 02/20/23 09:05 Dose: 200 mg Levothyroxine Sodium (Levothyroxine Sodium 175 Mcg Tablet) 175 mcg PO DAILY [facility] Stop: 03/16/23 08:59 Last Admin: 02/20/23 09:02 Dose: 175 mcg Lidocaine (Lidocaine 5% 1 Patch) 1 patch TD DAILY@1700 [facility] Stop: 03/16/23 16:59 Last Admin: 02/19/23 18:09 Dose: 1 patch Magnesium Hydroxide (Magnesium Hydroxide Susp 30 Ml Udc) 30 ml PO DAILY PRN PRN Reason: Constipation Stop: 03/16/23 03:26 Meclizine HCl (Meclizine Hcl 25 Mg Tab) 25 mg PO QAM PRN PRN Reason: Dizziness Stop: 03/16/23 08:42 Metformin HCl (Metformin Hcl Er 500 Mg Tabcr) 1,000 mg PO DAILY [facility] Stop: 03/16/23 09:59 Last Admin: 02/20/23 09:04 Dose: 1,000 mg Miconazole Nitrate (Miconazole Nitrate Powder 85 Gm) 1 appln EXT PRN PRN PRN Reason: Rash Stop: 03/16/23 08:51 Miscellaneous (Remove Lidoderm Patch) 1 each N/A DAILY@0500 [facility] Stop: 03/17/23 04:59 Last Admin: 02/20/23 06:45 Dose: 1 each Pantoprazole Sodium (Pantoprazole 40 Mg Tab) 40 mg PO QAM [facility] Stop: 03/16/23 09:59 Last Admin: 02/20/23 09:06 Dose: 40 mg Polyethylene Glycol (Polyethylene (Miralax) 17 Gm Pack) 17 gm PO DAILY PRN PRN Reason: constipation Stop: 03/16/23 08:53 Quetiapine Fumarate (Quetiapine Fumarate 300 Mg Tablet) 300 mg PO HS [facility] Stop: 03/16/23 21:59 Last Admin: 02/19/23 21:26 Dose: 300 mg Quetiapine Fumarate (Quetiapine Fumarate 100 Mg Tablet) 100 mg PO QAM [facility] Stop: 03/16/23 09:59 Last Admin: 02/20/23 09:06 Dose: 100 mg Rosuvastatin Calcium (Rosuvastatin Calcium 20 Mg Tab) 20 mg PO HS [facility] Stop: 03/16/23 21:59 Last Admin: 02/19/23 21:27 Dose: 20 mg Sodium Chloride (Sodium Chloride 0.65% Na Soln 45 Ml ([place])) 1 - 2 sprays NA PRN PRN PRN Reason: Nasal Dryness/Congestion Stop: 03/16/23 03:26 Vitamin D (Cholecalciferol 1,000 Units 25 Mcg Tab) 1,000 units PO BID [facility] Stop: 03/16/23 09:59 Last Admin: 02/20/23 09:06 Dose: 1,000 units Mental Health & Subst Abuse Tx Therapist Name of Therapist: Rudy Umanzor Dealmaker Name of Dealmaker: AGNES Myers (1) Schizoaffective disorder Schizoaffective disorder type: bipolar Qualified Code(s): F25.0 - Schizoaffective disorder, bipolar type
[2023-02-20] MEDS: LIDOCAINE 5% 1 PATCH TD SCH (19:00)
[2023-02-20] MEDS: cloZAPine 100 MG TAB PO SCH (20:19)
[2023-02-20] MEDS: GABAPENTIN 300 MG CAP PO SCH (20:21)
[2023-02-20] MEDS: QUEtiapine FUMARATE 300 MG TABLET PO SCH (20:22)
[2023-02-20] MEDS: ROSUVASTATIN CALCIUM 20 MG TAB PO SCH (20:23)
--- NOTE | 2023-02-21 08:25 | Psychiatric Progress Note ---
Date of Service February 21, 2023 Impression / Recommendations Impression 62 yo female with history of schizoaffective disorder with recent admission following medication non-adherence now rehospitalized for disorganization with delusions in context of suspected medication non-adherence. MNPR given psychosis, periods of urinary/bowel incontinence 02/21/2023: Less mood lability today, poor sleep overnight so will monitor this in setting of recent slight reduction of clozapine dose. No medication side effects, episodes of incontinence are lessening. Overall, I spent a total of 25 minutes with this case, including review of chart, review of labwork, direct evaluation of the patient, coordination with nursing, discussion with the treatment team, and documentation. (1) Schizoaffective disorder: Suicide Risk Level Suicide Risk Level: Moderate (q15 min suicide checks) (Ms. Stoll continues to report that she feels safe in the hospital and alerts staff consistently when she feels in need of additional support or feels distressed. She denies SI today. ) Risk Factors Assessment Male: No : Yes Do You Have Access To A Gun?: No Health Problems: Yes Mental Health Diagnoses: Yes Substance Use Disorders: No Previous Attempt: No (The patient denies any history of suicide attempts, but history is long) Family History of Suicide: No Previous Psychiatric Hospitalization: Yes Hopelessness: No Protective Factors Assessment Employed: No Stable Relationships: Yes Interval History Identifying Information PAMELA STOLL is a 62-year-old F who currently lives in [place], has a recent inpatient stay last month, and was admitted on 02/14/23 02:46 on a 201 voluntary commitment for suicidal statements at [facility]. Chief Complaint "A lot better today". Review of Systems Sleep Information Total Hours of Sleep: 4.5 Sleep Comments: incontinent once throughout the night Meal Information Percent Meal Consumed - Breakfast: 100 Percent Meal Consumed - Lunch: 100 Percent Meal Consumed - Dinner: 75 Nutrition Comment: fluids and a snack provided Subjective Subjective Patient was seen & assessed and interval progress reviewed with treatment team nursing and social work. Less intrusive during evening groups. Continent during the day. Mobile psych support visited last night which she appreciated. Today less tearful, reports her mood is better and more future oriented. States "I wish I didn't have to take clozapine but I will if you think it's important". Reviewed her concerns and she denies any side effects, just notes she wishes she didn't need to take as much medication but she remains willing to do so and remains willing to continue with clozapine. Physical Exam Psychiatric Orientation: alert and oriented x 3 Apperance: + disheveled Eye Contact: + fair eye contact Speech: normal rate/rhythm/volume of speech Affect: euthymic affect Mood: + anxious mood Thought Process: + circumstantial thought process Thought Content: reality based without delusions and + loneliness; no delusions Suicidal Thoughts: denies suicidal thoughts, denies suicidal plan and denies suicidal intent Homicidal Thoughts: denies homicidal thoughts Hallucinations: no auditory hallucinations and no visual hallucinations Cognition: attention grossly intact and language grossly intact Estimated Intelligence: consistent with education level Insight: + limited insight Judgment: + limited judgement Vital Signs (Past 24 Hours) Last Vital Signs Temp 37.1 C 02/21/23 06:30 Pulse 75 02/21/23 06:30 Resp 20 02/21/23 06:30 BP 127/79 02/21/23 06:30 Pulse Ox 100 02/21/23 06:30 O2 Del Method Room Air 02/21/23 06:30 Results & Data ([facility]) Current Inpatient Medications Current Inpatient Medications: Current Inpatient Medications Acetaminophen (Acetaminophen 325 Mg Tab) 650 mg PO Q4H PRN PRN Reason: Headache or Minor Fever Stop: 03/16/23 03:26 Al Hydrox/Mg Hydrox/Simethicone (Aluminum/Magnesium Susp 30 Ml Udc) 30 ml PO Q4H PRN PRN Reason: GI Upset Stop: 03/16/23 03:26 Aspirin (Aspirin 81 Mg Ectab) 81 mg PO QAM [facility] Stop: 03/16/23 08:59 Last Admin: 02/20/23 09:03 Dose: 81 mg Bismuth Subsalicylate (Bismuth Subsalicylate Liqd 236 Ml) 15 ml PO PRN PRN PRN Reason: Loose Stool Stop: 03/16/23 03:26 Celecoxib (Celecoxib 100 Mg Cap) 100 mg PO BID [facility] Stop: 03/16/23 09:59 Last Admin: 02/20/23 20:15 Dose: 100 mg Clozapine (Clozapine 100 Mg Tab) 300 mg PO HS [facility]; Protocol Stop: 03/16/23 21:59 Last Admin: 02/20/23 20:19 Dose: 300 mg Clozapine (Clozapine 25 Mg Tab) 50 mg PO DAILY [facility] Stop: 03/22/23 08:59 Last Admin: 02/20/23 09:02 Dose: 50 mg Gabapentin (Gabapentin 300 Mg Cap) 300 mg PO HS [facility] Stop: 03/16/23 21:59 Last Admin: 02/20/23 20:21 Dose: 300 mg Hydroxyzine HCl (Hydroxyzine Hcl 25 Mg Tab) 50 mg PO HSZ PRN PRN Reason: Insomnia Stop: 03/16/23 03:26 Hydroxyzine HCl (Hydroxyzine Hcl 25 Mg Tab) 25 mg PO Q4H PRN PRN Reason: Anxiety Stop: 03/16/23 03:26 Lamotrigine (Lamotrigine 100 Mg Tab) 200 mg PO BID [facility] Stop: 03/16/23 08:59 Last Admin: 02/20/23 20:16 Dose: 200 mg Levothyroxine Sodium (Levothyroxine Sodium 175 Mcg Tablet) 175 mcg PO DAILY [facility] Stop: 03/16/23 08:59 Last Admin: 02/20/23 09:02 Dose: 175 mcg Lidocaine (Lidocaine 5% 1 Patch) 1 patch TD DAILY@1700 [facility] Stop: 03/16/23 16:59 Last Admin: 02/20/23 19:00 Dose: 1 patch Magnesium Hydroxide (Magnesium Hydroxide Susp 30 Ml Udc) 30 ml PO DAILY PRN PRN Reason: Constipation Stop: 03/16/23 03:26 Meclizine HCl (Meclizine Hcl 25 Mg Tab) 25 mg PO QAM PRN PRN Reason: Dizziness Stop: 03/16/23 08:42 Metformin HCl (Metformin Hcl Er 500 Mg Tabcr) 1,000 mg PO DAILY [facility] Stop: 03/16/23 09:59 Last Admin: 02/20/23 09:04 Dose: 1,000 mg Miconazole Nitrate (Miconazole Nitrate Powder 85 Gm) 1 appln EXT PRN PRN PRN Reason: Rash Stop: 03/16/23 08:51 Miscellaneous (Remove Lidoderm Patch) 1 each N/A DAILY@0500 [facility] Stop: 03/17/23 04:59 Last Admin: 02/21/23 05:49 Dose: 1 each Pantoprazole Sodium (Pantoprazole 40 Mg Tab) 40 mg PO QAM [facility] Stop: 03/16/23 09:59 Last Admin: 02/20/23 09:06 Dose: 40 mg Polyethylene Glycol (Polyethylene (Miralax) 17 Gm Pack) 17 gm PO DAILY PRN PRN Reason: constipation Stop: 03/16/23 08:53 Quetiapine Fumarate (Quetiapine Fumarate 300 Mg Tablet) 300 mg PO HS [facility] Stop: 03/16/23 21:59 Last Admin: 02/20/23 20:22 Dose: 300 mg Quetiapine Fumarate (Quetiapine Fumarate 100 Mg Tablet) 100 mg PO QAM [facility] Stop: 03/16/23 09:59 Last Admin: 02/20/23 20:21 Dose: 100 mg Rosuvastatin Calcium (Rosuvastatin Calcium 20 Mg Tab) 20 mg PO HS [facility] Stop: 03/16/23 21:59 Last Admin: 02/20/23 20:23 Dose: 20 mg Sodium Chloride (Sodium Chloride 0.65% Na Soln 45 Ml ([place])) 1 - 2 sprays NA PRN PRN PRN Reason: Nasal Dryness/Congestion Stop: 03/16/23 03:26 Vitamin D (Cholecalciferol 1,000 Units 25 Mcg Tab) 1,000 units PO BID [facility] Stop: 03/16/23 09:59 Last Admin: 02/20/23 20:14 Dose: 1,000 units Mental Health & Subst Abuse Tx Psychiatrist Name of Psychiatrist: Dian Zhou Psychiatrist's Psychiatric Appointment Comment: [id number] [place] [address] Therapist Name of Therapist: [facility] Appointment Comment: Please resume your normal schedule. Product Info Specialist Name of Product Info Specialist: AGNES Myers Case Management Appointment Comment: Please resume your normal schedule. Post Discharge Appointments Primary Care Physician Name Of Family Doctor/PCP: [facility] Date of Future Appointment with PCP: 03/04/23 Time of Appointment with PCP: 1:00 PM Provider Appointment Comment: [address] [place] [address] [place] [address] Contact Information Discharge Discharge Address: [facility] [address], [place] [address] (1) Schizoaffective disorder Schizoaffective disorder type: bipolar Qualified Code(s): F25.0 - Schizoaffective disorder, bipolar type
[2023-02-21] MEDS: ASPIRIN 81 MG ECTAB PO SCH (09:13)
[2023-02-21] MEDS: cloZAPine 25 MG TAB PO SCH (09:14)
[2023-02-21] MEDS: LEVOTHYROXINE SODIUM 175 MCG TABLET PO SCH (09:14)
[2023-02-21] MEDS: PANTOprazole 40 MG TAB PO SCH (09:14)
[2023-02-21] MEDS: metFORMIN HCL ER 500 MG TABCR PO SCH (09:14)
[2023-02-21] MEDS: CELECOXIB 100 MG CAP PO SCH ×2 (09:14→20:26)
[2023-02-21] MEDS: lamoTRIgine 100 MG TAB PO SCH ×2 (09:14→20:27)
[2023-02-21] MEDS: CHOLECALCIFEROL 1,000 UNITS 25 MCG TAB PO SCH ×2 (09:14→20:27)
[2023-02-21] MEDS: QUEtiapine FUMARATE 100 MG TABLET PO SCH ×2 (09:20→20:30)
[2023-02-21] MEDS: LIDOCAINE 5% 1 PATCH TD SCH (17:10)
[2023-02-21] MEDS: cloZAPine 100 MG TAB PO SCH (20:28)
[2023-02-21] MEDS: GABAPENTIN 300 MG CAP PO SCH (20:29)
[2023-02-21] MEDS: QUEtiapine FUMARATE 300 MG TABLET PO SCH (20:31)
[2023-02-21] MEDS: ROSUVASTATIN CALCIUM 20 MG TAB PO SCH (20:32)
--- NOTE | 2023-02-22 09:15 | Psychiatric Progress Note ---
Date of Service February 22, 2023 Impression / Recommendations Impression 62 yo female with history of schizoaffective disorder with recent admission following medication non-adherence now rehospitalized for disorganization with delusions in context of suspected medication non-adherence. MNPR given psychosis, periods of urinary/bowel incontinence 02/22/2023: Some mood lability today but overall showing signs of progress with more independence, better attention to hygiene/self-care and improving insight into the need for her medications. Overall, I spent a total of 25 minutes with this case, including review of chart, review of labwork, direct evaluation of the patient, coordination with nursing, discussion with the treatment team, and documentation. (1) Schizoaffective disorder: Plan 02/22/2023: * Clozapine 50mg qAM and 350mg HS--previously 150mg qAM and 450mg HS * Continue Seroquel 100mg qAM and 300mg HS 02/21/2023: * Clozapine 50mg qAM and 350mg HS--previously 150mg qAM and 450mg HS * Continue Seroquel 100mg qAM and 300mg HS 02/20/2023: * Clozapine 50mg qAM and 350mg HS--previously 150mg qAM and 450mg HS * Continue Seroquel 100mg qAM and 300mg HS 02/19/2023: * Clozapine 50mg qAM and 350mg HS--previously 150mg qAM and 450mg HS * Continue Seroquel 100mg qAM and 300mg HS 02/18/2023: * Clozapine reduced to 50mg qAM and 350mg HS--reduced from 150mg qAM and 450mg HS on 02/18/23 * Continue Seroquel 100mg qAM and 300mg HS 02/17/2023: continue current medications and tx plan. 02/16/2023: continue current medications and tx plan. 02/15/23: continue current meds as hx of encephalopathy around med compliance and reestablishing med compliance. She is readily redirectible in this setting without additional prns and does have periods of sedation. Patient has a hx of significant dystonia on Haldol and has been on current medications for a long time. looking at previous trials on file here, I do not see Abilify. 02/14/23: The patient was admitted to the [facility] (locked inpatient mental health unit) on q15 min checks (behavioral with suicide precautions) for safety. The patient will participate in group, recreational, and milieu therapies and will be offered additional individual and family sessions as clinically appropriate. Resume home medications as reconstituted quickly last time but will likely need to revisit d/c Seroquel in favor of a MURRAY in combo with clozaril. Suicide Risk Level Suicide Risk Level: Moderate (q15 min suicide checks) (Ms. Stoll continues to report that she feels safe in the hospital and alerts staff consistently when she feels in need of additional support or feels distressed. She denies SI today. ) Risk Factors Assessment Male: No : Yes Do You Have Access To A Gun?: No Health Problems: Yes Mental Health Diagnoses: Yes Substance Use Disorders: No Previous Attempt: No (The patient denies any history of suicide attempts, but history is long) Family History of Suicide: No Previous Psychiatric Hospitalization: Yes Hopelessness: No Protective Factors Assessment Employed: No Stable Relationships: Yes Interval History Identifying Information PAMELA STOLL is a 62-year-old F who currently lives in [place], has a recent inpatient stay last month, and was admitted on 02/14/23 02:46 on a 201 voluntary commitment for suicidal statements at [facility]. Chief Complaint "Can I give you a hug? You're so sweet". Review of Systems Sleep Information Total Hours of Sleep: 6 Sleep Comments: Pt incontinent of large amt of urine. Meal Information Percent Meal Consumed - Breakfast: 100 Percent Meal Consumed - Lunch: 100 Percent Meal Consumed - Dinner: 100 Nutrition Comment: fluids and a snack provided Subjective Subjective Patient was seen & assessed and interval progress reviewed with treatment team nursing and social work. Still labile going from laughing to crying and reported depression to some RNs but to others discussed desire to celebrate Thanksgiving with new friends at the place where she has moved. Had urinary incontinence this morning. This afternoon tells me she is feeling "pretty good" but quickly becomes tearful discussing her mother who struggled with Parkinson's disease until her . Then quickly fluctuates back to state of happiness as I discuss her upcoming plans for the holidays and she expresses significant gratitude for the care she's been getting in the hospital. Appropriately reflects that even though she feels everyone is very nice to her in the hospital "I don't want to live here" and therefore states she plans to take her medication so she doesn't have to come back. Physical Exam Psychiatric Orientation: alert and oriented x 3 Apperance: appropriately dressed and appropriately groomed Eye Contact: + fair eye contact Speech: normal rate/rhythm/volume of speech Affect: euthymic affect, + tearful affect and + labile affect Mood: + anxious mood Thought Process: + circumstantial thought process Thought Content: reality based without delusions Suicidal Thoughts: denies suicidal thoughts, denies suicidal plan and denies suicidal intent Homicidal Thoughts: denies homicidal thoughts Hallucinations: no auditory hallucinations and no visual hallucinations Cognition: attention grossly intact and language grossly intact Estimated Intelligence: consistent with education level Insight: + limited insight Judgment: + limited judgement Vital Signs (Past 24 Hours) Last Vital Signs Temp 36.4 C 02/22/23 05:16 Pulse 82 02/22/23 05:16 Resp 20 02/22/23 05:16 BP 133/87 02/22/23 05:16 Pulse Ox 99 02/22/23 05:16 O2 Del Method Room Air 02/22/23 05:16 Results & Data ([facility]) Current Inpatient Medications Current Inpatient Medications: Current Inpatient Medications Acetaminophen (Acetaminophen 325 Mg Tab) 650 mg PO Q4H PRN PRN Reason: Headache or Minor Fever Stop: 03/16/23 03:26 Al Hydrox/Mg Hydrox/Simethicone (Aluminum/Magnesium Susp 30 Ml Udc) 30 ml PO Q4H PRN PRN Reason: GI Upset Stop: 03/16/23 03:26 Aspirin (Aspirin 81 Mg Ectab) 81 mg PO QAM [facility] Stop: 03/16/23 08:59 Last Admin: 02/21/23 09:13 Dose: 81 mg Bismuth Subsalicylate (Bismuth Subsalicylate Liqd 236 Ml) 15 ml PO PRN PRN PRN Reason: Loose Stool Stop: 03/16/23 03:26 Celecoxib (Celecoxib 100 Mg Cap) 100 mg PO BID [facility] Stop: 03/16/23 09:59 Last Admin: 02/21/23 20:26 Dose: 100 mg Clozapine (Clozapine 100 Mg Tab) 300 mg PO HS [facility]; Protocol Stop: 03/16/23 21:59 Last Admin: 02/21/23 20:28 Dose: 300 mg Clozapine (Clozapine 25 Mg Tab) 50 mg PO DAILY [facility] Stop: 03/22/23 08:59 Last Admin: 02/21/23 09:14 Dose: 50 mg Gabapentin (Gabapentin 300 Mg Cap) 300 mg PO HS [facility] Stop: 03/16/23 21:59 Last Admin: 02/21/23 20:29 Dose: 300 mg Hydroxyzine HCl (Hydroxyzine Hcl 25 Mg Tab) 50 mg PO HSZ PRN PRN Reason: Insomnia Stop: 03/16/23 03:26 Hydroxyzine HCl (Hydroxyzine Hcl 25 Mg Tab) 25 mg PO Q4H PRN PRN Reason: Anxiety Stop: 03/16/23 03:26 Lamotrigine (Lamotrigine 100 Mg Tab) 200 mg PO BID [facility] Stop: 03/16/23 08:59 Last Admin: 02/21/23 20:27 Dose: 200 mg Levothyroxine Sodium (Levothyroxine Sodium 175 Mcg Tablet) 175 mcg PO DAILY [facility] Stop: 03/16/23 08:59 Last Admin: 02/21/23 09:14 Dose: 175 mcg Lidocaine (Lidocaine 5% 1 Patch) 1 patch TD DAILY@1700 [facility] Stop: 03/16/23 16:59 Last Admin: 02/21/23 17:10 Dose: 1 patch Magnesium Hydroxide (Magnesium Hydroxide Susp 30 Ml Udc) 30 ml PO DAILY PRN PRN Reason: Constipation Stop: 03/16/23 03:26 Meclizine HCl (Meclizine Hcl 25 Mg Tab) 25 mg PO QAM PRN PRN Reason: Dizziness Stop: 03/16/23 08:42 Metformin HCl (Metformin Hcl Er 500 Mg Tabcr) 1,000 mg PO DAILY [facility] Stop: 03/16/23 09:59 Last Admin: 02/21/23 09:14 Dose: 1,000 mg Miconazole Nitrate (Miconazole Nitrate Powder 85 Gm) 1 appln EXT PRN PRN PRN Reason: Rash Stop: 03/16/23 08:51 Miscellaneous (Remove Lidoderm Patch) 1 each N/A DAILY@0500 [facility] Stop: 03/17/23 04:59 Last Admin: 02/22/23 05:06 Dose: 1 each Pantoprazole Sodium (Pantoprazole 40 Mg Tab) 40 mg PO QAM [facility] Stop: 03/16/23 09:59 Last Admin: 02/21/23 09:14 Dose: 40 mg Polyethylene Glycol (Polyethylene (Miralax) 17 Gm Pack) 17 gm PO DAILY PRN PRN Reason: constipation Stop: 03/16/23 08:53 Quetiapine Fumarate (Quetiapine Fumarate 300 Mg Tablet) 300 mg PO HS [facility] Stop: 03/16/23 21:59 Last Admin: 02/21/23 20:31 Dose: 300 mg Quetiapine Fumarate (Quetiapine Fumarate 100 Mg Tablet) 100 mg PO QAM [facility] Stop: 03/16/23 09:59 Last Admin: 02/21/23 09:20 Dose: 100 mg Rosuvastatin Calcium (Rosuvastatin Calcium 20 Mg Tab) 20 mg PO HS [facility] Stop: 03/16/23 21:59 Last Admin: 02/21/23 20:32 Dose: 20 mg Sodium Chloride (Sodium Chloride 0.65% Na Soln 45 Ml ([place])) 1 - 2 sprays NA PRN PRN PRN Reason: Nasal Dryness/Congestion Stop: 03/16/23 03:26 Vitamin D (Cholecalciferol 1,000 Units 25 Mcg Tab) 1,000 units PO BID [facility] Stop: 03/16/23 09:59 Last Admin: 02/21/23 20:27 Dose: 1,000 units Mental Health & Subst Abuse Tx Psychiatrist Name of Psychiatrist: Dian Zhou Psychiatrist's Date Of Appointment With Psychiatric Provider: 03/04/23 Time of Appointment with Psychiatrist: 9:20 AM Psychiatric Appointment Comment: [id number] [place] [address] Therapist Name of Therapist: [facility] Appointment Comment: Please resume your normal schedule. Insurance Loss Assessor Name of Insurance Loss Assessor: AGNES Myers Case Management Appointment Comment: Please resume your normal schedule. Post Discharge Appointments Primary Care Physician Name Of Family Doctor/PCP: [facility] Date of Future Appointment with PCP: 03/04/23 Time of Appointment with PCP: 1:00 PM Provider Appointment Comment: [address] [place] [address] [place] [address] Contact Information Discharge Discharge Address: [address] [place] [address] [address] [address] (1) Schizoaffective disorder Schizoaffective disorder type: bipolar Qualified Code(s): F25.0 - Schizoaffective disorder, bipolar type
[2023-02-22] MEDS: CHOLECALCIFEROL 1,000 UNITS 25 MCG TAB PO SCH ×2 (09:16→21:08)
[2023-02-22] MEDS: CELECOXIB 100 MG CAP PO SCH ×2 (09:16→21:07)
[2023-02-22] MEDS: ASPIRIN 81 MG ECTAB PO SCH (09:16)
[2023-02-22] MEDS: LEVOTHYROXINE SODIUM 175 MCG TABLET PO SCH (09:17)
[2023-02-22] MEDS: cloZAPine 25 MG TAB PO SCH (09:17)
[2023-02-22] MEDS: lamoTRIgine 100 MG TAB PO SCH ×2 (09:17→21:08)
[2023-02-22] MEDS: PANTOprazole 40 MG TAB PO SCH (09:17)
[2023-02-22] MEDS: QUEtiapine FUMARATE 100 MG TABLET PO SCH (09:17)
[2023-02-22] MEDS: metFORMIN HCL ER 500 MG TABCR PO SCH (09:17)
[2023-02-22] MEDS: LIDOCAINE 5% 1 PATCH TD SCH (17:10)
[2023-02-22] MEDS: cloZAPine 100 MG TAB PO SCH (21:09)
[2023-02-22] MEDS: GABAPENTIN 300 MG CAP PO SCH (21:09)
[2023-02-22] MEDS: ROSUVASTATIN CALCIUM 20 MG TAB PO SCH (21:10)
[2023-02-22] MEDS: QUEtiapine FUMARATE 300 MG TABLET PO SCH (21:10)
[2023-02-23] MEDS: cloZAPine 25 MG TAB PO SCH (08:00)
[2023-02-23] MEDS: QUEtiapine FUMARATE 100 MG TABLET PO SCH (08:30)
[2023-02-23] MEDS: LEVOTHYROXINE SODIUM 175 MCG TABLET PO SCH (08:30)
[2023-02-23] MEDS: lamoTRIgine 100 MG TAB PO SCH ×2 (08:30→20:25)
[2023-02-23] MEDS: metFORMIN HCL ER 500 MG TABCR PO SCH (08:30)
[2023-02-23] MEDS: CHOLECALCIFEROL 1,000 UNITS 25 MCG TAB PO SCH ×2 (08:30→20:28)
[2023-02-23] MEDS: PANTOprazole 40 MG TAB PO SCH (08:30)
[2023-02-23] MEDS: CELECOXIB 100 MG CAP PO SCH ×2 (08:31→20:26)
[2023-02-23] MEDS: ASPIRIN 81 MG ECTAB PO SCH (08:32)
--- NOTE | 2023-02-23 11:51 | Psychiatric Progress Note ---
Date of Service February 23, 2023 Impression / Recommendations Impression 62 yo female with history of schizoaffective disorder with recent admission following medication non-adherence now rehospitalized for disorganization with delusions in context of suspected medication non-adherence. MNPR given psychosis, periods of urinary/bowel incontinence 02/23/2023: Pt greets me by name fairly cheerfully, announces that she's "going home on Saturday". Says she thinks she "ended up in the hospital because of getting messed up on medication" (stopping or missing self-administered medications). Today has been somewhat peremptory towards staff 02/22/2023: Some mood lability today but overall showing signs of progress with more independence, better attention to hygiene/self-care and improving insight into the need for her medications. (1) Schizoaffective disorder: Plan 02/23/2023: * continue clozapine 50 mg QAM and 350 mg QHS - reduced 02/18/2023 from 150 mg QAM & 450 mg QHS * continue quetiapine 100 mg QAM and 300 mg QHS - prior to admission medication * anticipate discharge in 2-3 days 02/22/2023: * Clozapine 50mg qAM and 350mg HS--previously 150mg qAM and 450mg HS * Continue Seroquel 100mg qAM and 300mg HS 02/21/2023: * Clozapine 50mg qAM and 350mg HS--previously 150mg qAM and 450mg HS * Continue Seroquel 100mg qAM and 300mg HS 02/20/2023: * Clozapine 50mg qAM and 350mg HS--previously 150mg qAM and 450mg HS * Continue Seroquel 100mg qAM and 300mg HS 02/19/2023: * Clozapine 50mg qAM and 350mg HS--previously 150mg qAM and 450mg HS * Continue Seroquel 100mg qAM and 300mg HS 02/18/2023: * Clozapine reduced to 50mg qAM and 350mg HS--reduced from 150mg qAM and 450mg HS on 02/18/23 * Continue Seroquel 100mg qAM and 300mg HS 02/17/2023: continue current medications and tx plan. 02/16/2023: continue current medications and tx plan. 02/15/23: continue current meds as hx of encephalopathy around med compliance and reestablishing med compliance. She is readily redirectible in this setting without additional prns and does have periods of sedation. Patient has a hx of significant dystonia on Haldol and has been on current medications for a long time. looking at previous trials on file here, I do not see Asadrolando. 02/14/23: The patient was admitted to the [facility] (public health service hospital health unit) on q15 min checks (behavioral with suicide precautions) for safety. The patient will participate in group, recreational, and milieu therapies and will be offered additional individual and family sessions as clinically appropriate. Resume home medications as reconstituted quickly last time but will likely need to revisit d/c Seroquel in favor of a MURRAY in combo with clozaril. Suicide Risk Level Suicide Risk Level: Moderate (q15 min suicide checks) (Ms. Stoll continues to report that she feels safe in the hospital and alerts staff consistently when she feels in need of additional support or feels distressed. She denies SI today. ) Risk Factors Assessment Male: No : Yes Do You Have Access To A Gun?: No Health Problems: Yes Mental Health Diagnoses: Yes Substance Use Disorders: No Previous Attempt: No (The patient denies any history of suicide attempts, but history is long) Family History of Suicide: No Previous Psychiatric Hospitalization: Yes Hopelessness: No Protective Factors Assessment Employed: No Stable Relationships: Yes Interval History Identifying Information PAMELA STOLL is a 62-year-old F who currently lives in [place], has a recent inpatient stay last month, and was admitted on 02/14/23 02:46 on a 201 voluntary commitment for suicidal statements at [facility]. Chief Complaint "I'm getting better". Review of Systems Sleep Information Total Hours of Sleep: 7 Sleep Comments: Incontinent of urine Meal Information Percent Meal Consumed - Breakfast: 100 Percent Meal Consumed - Lunch: 100 Percent Meal Consumed - Dinner: 100 Nutrition Comment: fluids and a snack provided Subjective Subjective The patient was seen and assessed and interval progress reviewed in a multidisciplinary team meeting with the treatment team. For details, see the "Impression" section. Overall I spent a total of 26 minutes for this inpatient follow-up including review of chart records, review of test results, direct evaluation of the patient [id number], counseling the patient, medication education with the patient, risk assessment, discussion during interdisciplinary treatment rounds, and documentation in the electronic health record. Physical Exam Psychiatric Orientation: alert and oriented x 3 Apperance: appropriately dressed, appropriately groomed and + disheveled Eye Contact: + fair eye contact; + not good eye contact Speech: normal rate/rhythm/volume of speech Affect: euthymic affect, + depressed affect, + tearful affect, + labile affect and mood congruent with affect Mood: + depressed mood and + anxious mood Thought Process: + circumstantial thought process and + tangential thought process Thought Content: reality based without delusions and + loneliness; no delusions Suicidal Thoughts: denies suicidal thoughts, denies suicidal plan and denies suicidal intent Homicidal Thoughts: denies homicidal thoughts Hallucinations: no auditory hallucinations and no visual hallucinations Cognition: attention grossly intact and language grossly intact Estimated Intelligence: consistent with education level Insight: + limited insight and + poor insight Judgment: + limited judgement and + poor judgement Vital Signs (Past 24 Hours) Last Vital Signs Temp 36.4 C L 02/23/23 06:47 Pulse 73 02/23/23 06:48 Resp 16 02/23/23 06:47 BP 150/89 H 02/23/23 06:48 Pulse Ox 99 02/22/23 05:16 O2 Del Method Room Air 02/22/23 05:16 Results & Data ([facility]) Current Inpatient Medications Current Inpatient Medications: Current Inpatient Medications Acetaminophen (Acetaminophen 325 Mg Tab) 650 mg PO Q4H PRN PRN Reason: Headache or Minor Fever Stop: 03/16/23 03:26 Al Hydrox/Mg Hydrox/Simethicone (Aluminum/Magnesium Susp 30 Ml Udc) 30 ml PO Q4H PRN PRN Reason: GI Upset Stop: 03/16/23 03:26 Aspirin (Aspirin 81 Mg Ectab) 81 mg PO QAM [facility] Stop: 03/16/23 08:59 Last Admin: 02/23/23 08:32 Dose: 81 mg Bismuth Subsalicylate (Bismuth Subsalicylate Liqd 236 Ml) 15 ml PO PRN PRN PRN Reason: Loose Stool Stop: 03/16/23 03:26 Celecoxib (Celecoxib 100 Mg Cap) 100 mg PO BID [facility] Stop: 03/16/23 09:59 Last Admin: 02/23/23 08:31 Dose: 100 mg Clozapine (Clozapine 100 Mg Tab) 300 mg PO HS [facility]; Protocol Stop: 03/16/23 21:59 Last Admin: 02/22/23 21:09 Dose: 300 mg Clozapine (Clozapine 25 Mg Tab) 50 mg PO DAILY [facility] Stop: 03/22/23 08:59 Last Admin: 02/23/23 08:00 Dose: 50 mg Gabapentin (Gabapentin 300 Mg Cap) 300 mg PO HS [facility] Stop: 03/16/23 21:59 Last Admin: 02/22/23 21:09 Dose: 300 mg Hydroxyzine HCl (Hydroxyzine Hcl 25 Mg Tab) 50 mg PO HSZ PRN PRN Reason: Insomnia Stop: 03/16/23 03:26 Hydroxyzine HCl (Hydroxyzine Hcl 25 Mg Tab) 25 mg PO Q4H PRN PRN Reason: Anxiety Stop: 03/16/23 03:26 Lamotrigine (Lamotrigine 100 Mg Tab) 200 mg PO BID [facility] Stop: 03/16/23 08:59 Last Admin: 02/23/23 08:30 Dose: 200 mg Levothyroxine Sodium (Levothyroxine Sodium 175 Mcg Tablet) 175 mcg PO DAILY [facility] Stop: 03/16/23 08:59 Last Admin: 02/23/23 08:30 Dose: 175 mcg Lidocaine (Lidocaine 5% 1 Patch) 1 patch TD DAILY@1700 [facility] Stop: 03/16/23 16:59 Last Admin: 02/22/23 17:10 Dose: 1 patch Magnesium Hydroxide (Magnesium Hydroxide Susp 30 Ml Udc) 30 ml PO DAILY PRN PRN Reason: Constipation Stop: 03/16/23 03:26 Meclizine HCl (Meclizine Hcl 25 Mg Tab) 25 mg PO QAM PRN PRN Reason: Dizziness Stop: 03/16/23 08:42 Metformin HCl (Metformin Hcl Er 500 Mg Tabcr) 1,000 mg PO DAILY [facility] Stop: 03/16/23 09:59 Last Admin: 02/23/23 08:30 Dose: 1,000 mg Miconazole Nitrate (Miconazole Nitrate Powder 85 Gm) 1 appln EXT PRN PRN PRN Reason: Rash Stop: 03/16/23 08:51 Miscellaneous (Remove Lidoderm Patch) 1 each N/A DAILY@0500 [facility] Stop: 03/17/23 04:59 Last Admin: 02/23/23 04:58 Dose: 1 each Pantoprazole Sodium (Pantoprazole 40 Mg Tab) 40 mg PO QAM [facility] Stop: 03/16/23 09:59 Last Admin: 02/23/23 08:30 Dose: 40 mg Polyethylene Glycol (Polyethylene (Miralax) 17 Gm Pack) 17 gm PO DAILY PRN PRN Reason: constipation Stop: 03/16/23 08:53 Quetiapine Fumarate (Quetiapine Fumarate 300 Mg Tablet) 300 mg PO HS [facility] Stop: 03/16/23 21:59 Last Admin: 02/22/23 21:10 Dose: 300 mg Quetiapine Fumarate (Quetiapine Fumarate 100 Mg Tablet) 100 mg PO QAM [facility] Stop: 03/16/23 09:59 Last Admin: 02/23/23 08:30 Dose: 100 mg Rosuvastatin Calcium (Rosuvastatin Calcium 20 Mg Tab) 20 mg PO HS [facility] Stop: 03/16/23 21:59 Last Admin: 02/22/23 21:10 Dose: 20 mg Sodium Chloride (Sodium Chloride 0.65% Na Soln 45 Ml ([place])) 1 - 2 sprays NA PRN PRN PRN Reason: Nasal Dryness/Congestion Stop: 03/16/23 03:26 Vitamin D (Cholecalciferol 1,000 Units 25 Mcg Tab) 1,000 units PO BID [facility] Stop: 03/16/23 09:59 Last Admin: 02/23/23 08:30 Dose: 1,000 units Mental Health & Subst Abuse Tx Psychiatrist Name of Psychiatrist: Dian Zhou Psychiatrist's Date Of Appointment With Psychiatric Provider: 03/04/23 Time of Appointment with Psychiatrist: 9:20 AM Psychiatric Appointment Comment: [phone] [place] [address] Therapist Name of Therapist: [facility] Appointment Comment: Please resume your normal schedule. Haz Tech Name of Haz Tech: AGNES Myers Case Management Appointment Comment: Please resume your normal schedule. Post Discharge Appointments Primary Care Physician Name Of Family Doctor/PCP: MEL[facility] Date of Future Appointment with PCP: 03/04/23 Time of Appointment with PCP: 1:00 PM Provider Appointment Comment: [address] [place] [address] [place] [address] Contact Information Discharge Discharge Address: [facility] [address], [place] [address] (1) Schizoaffective disorder Schizoaffective disorder type: bipolar Qualified Code(s): F25.0 - Schizoaffective disorder, bipolar type
[2023-02-23] MEDS: LIDOCAINE 5% 1 PATCH TD SCH (16:54)
[2023-02-23] MEDS: cloZAPine 100 MG TAB PO SCH (20:26)
[2023-02-23] MEDS: ROSUVASTATIN CALCIUM 20 MG TAB PO SCH (20:27)
[2023-02-23] MEDS: QUEtiapine FUMARATE 300 MG TABLET PO SCH (20:27)
[2023-02-23] MEDS: GABAPENTIN 300 MG CAP PO SCH (20:27)
[2023-02-24] MEDS: ASPIRIN 81 MG ECTAB PO SCH (08:38)
[2023-02-24] MEDS: QUEtiapine FUMARATE 100 MG TABLET PO SCH (08:38)
[2023-02-24] MEDS: metFORMIN HCL ER 500 MG TABCR PO SCH (08:38)
[2023-02-24] MEDS: PANTOprazole 40 MG TAB PO SCH (08:38)
[2023-02-24] MEDS: CHOLECALCIFEROL 1,000 UNITS 25 MCG TAB PO SCH ×2 (08:39→20:28)
[2023-02-24] MEDS: CELECOXIB 100 MG CAP PO SCH ×2 (08:39→20:27)
[2023-02-24] MEDS: cloZAPine 25 MG TAB PO SCH ×2 (08:39→20:28)
[2023-02-24] MEDS: lamoTRIgine 100 MG TAB PO SCH ×2 (08:39→20:29)
[2023-02-24] MEDS: LEVOTHYROXINE SODIUM 175 MCG TABLET PO SCH (08:39)
--- NOTE | 2023-02-24 12:16 | Psychiatric Progress Note ---
Date of Service February 24, 2023 Impression / Recommendations Impression 62 yo female with history of schizoaffective disorder with recent admission following medication non-adherence now rehospitalized for disorganization with delusions in context of suspected medication non-adherence. MNPR given psychosis, periods of urinary/bowel incontinence 02/24/2023: Pt reports "I think I'm doing pretty well" but voices apprehension about returning home with any change in clozapine dose from the prior to admission regimen. Her dose had been reduced due to concern over sedation. However, review of notes and orders reveals that she was documented as seeming sedated on 02/18 and as greatly improved the following day less than an hour after the first decreased dose. She is confident this medication has not made her sedated in the past and is worried about relapse risk on a lower dose. After this discussion, I agreed to resume the previous clozapine regimen. 02/23/2023: Pt greets me by name fairly cheerfully, announces that she's "going home on Saturday". Says she thinks she "ended up in the hospital because of getting messed up on medication" (stopping or missing self-administered medications). Today has been somewhat peremptory towards staff 02/22/2023: Some mood lability today but overall showing signs of progress with more independence, better attention to hygiene/self-care and improving insight into the need for her medications. (1) Schizoaffective disorder: Plan 02/24/2023: * increase clozapine back to prior to admission dose of 150 mg QAM and 350 mg QHS - reduced 02/18/2023 from 150 mg QAM & 450 mg QHS * continue quetiapine 100 mg QAM and 300 mg QHS - prior to admission medication * anticipate discharge in 1-2 days 02/23/2023: * continue clozapine 50 mg QAM and 350 mg QHS - reduced 02/18/2023 from 150 mg QAM & 450 mg QHS * continue quetiapine 100 mg QAM and 300 mg QHS - prior to admission medication * anticipate discharge in 2-3 days 02/22/2023: * Clozapine 50mg qAM and 350mg HS--previously 150mg qAM and 450mg HS * Continue Seroquel 100mg qAM and 300mg HS 02/21/2023: * Clozapine 50mg qAM and 350mg HS--previously 150mg qAM and 450mg HS * Continue Seroquel 100mg qAM and 300mg HS 02/20/2023: * Clozapine 50mg qAM and 350mg HS--previously 150mg qAM and 450mg HS * Continue Seroquel 100mg qAM and 300mg HS 02/19/2023: * Clozapine 50mg qAM and 350mg HS--previously 150mg qAM and 450mg HS * Continue Seroquel 100mg qAM and 300mg HS 02/18/2023: * Clozapine reduced to 50mg qAM and 350mg HS--reduced from 150mg qAM and 450mg HS on 02/18/23 * Continue Seroquel 100mg qAM and 300mg HS 02/17/2023: continue current medications and tx plan. 02/16/2023: continue current medications and tx plan. 02/15/23: continue current meds as hx of encephalopathy around med compliance and reestablishing med compliance. She is readily redirectible in this setting without additional prns and does have periods of sedation. Patient has a hx of significant dystonia on Haldol and has been on current medications for a long time. looking at previous trials on file here, I do not see Abilify. 02/14/23: The patient was admitted to the [facility] ([facility] mental [facility] unit) on q15 min checks (behavioral with suicide precautions) for safety. The patient will participate in group, recreational, and milieu therapies and will be offered additional individual and family sessions as clinically appropriate. Resume home medications as reconstituted quickly last time but will likely need to revisit d/c Seroquel in favor of a MURRAY in combo with clozaril. Suicide Risk Level Suicide Risk Level: Moderate (q15 min suicide checks) (Ms. Stoll continues to report that she feels safe in the hospital and alerts staff consistently when she feels in need of additional support or feels distressed. She denies SI today. ) Risk Factors Assessment Male: No : Yes Do You Have Access To A Gun?: No Health Problems: Yes Mental Health Diagnoses: Yes Substance Use Disorders: No Previous Attempt: No (The patient denies any history of suicide attempts, but history is long) Family History of Suicide: No Previous Psychiatric Hospitalization: Yes Hopelessness: No Protective Factors Assessment Employed: No Stable Relationships: Yes Interval History Identifying Information PAMELA STOLL is a 62-year-old F who currently lives in [place], has a rec ent inpatient stay last month, and was admitted on 02/14/23 02:46 on a 201 voluntary commitment for suicidal statements at [facility]. Chief Complaint "Has my Clozaril been changed?". Review of Systems Sleep Information Total Hours of Sleep: 4.5 Sleep Comments: Incontinent of urine Meal Information Percent Meal Consumed - Breakfast: 100 Percent Meal Consumed - Lunch: 100 Percent Meal Consumed - Dinner: 100 Nutrition Comment: fluids and a snack provided Subjective Subjective The patient was seen and assessed and interval progress reviewed in a multidisciplinary team meeting with the treatment team. For details, see the "Impression" section. Overall I spent a total of 28 minutes for this inpatient follow-up including review of chart records, direct evaluation of the patient [id number], counseling the patient, reconciling and ordering medication, medication education with the patient, risk assessment, discussion during interdisciplinary treatment rounds, and documentation in the electronic health record. Physical Exam Psychiatric Orientation: alert, oriented to person, oriented to place, oriented to time and cooperative Apperance: appropriately dressed, appropriately groomed and + disheveled Eye Contact: + fair eye contact Speech: normal rate/rhythm/volume of speech Affect: + constricted affect and mood congruent with affect Mood: + anxious mood and + dysphoric mood Thought Process: + circumstantial thought process and + tangential thought process Thought Content: reality based without delusions and + loneliness Suicidal Thoughts: denies suicidal thoughts, denies suicidal plan and denies suicidal intent Homicidal Thoughts: denies homicidal thoughts Hallucinations: no auditory hallucinations and no visual hallucinations Cognition: attention grossly intact and language grossly intact Estimated Intelligence: consistent with education level Insight: + limited insight Judgment: + limited judgement Vital Signs (Past 24 Hours) Last Vital Signs Temp 36.7 C 02/24/23 06:49 Pulse 77 02/24/23 06:50 Resp 16 02/24/23 06:49 BP 103/70 02/24/23 06:50 Pulse Ox 99 02/22/23 05:16 O2 Del Method Room Air 02/22/23 05:16 Results & Data ([facility]) Current Inpatient Medications Current Inpatient Medications: Current Inpatient Medications Acetaminophen (Acetaminophen 325 Mg Tab) 650 mg PO Q4H PRN PRN Reason: Headache or Minor Fever Stop: 03/16/23 03:26 Al Hydrox/Mg Hydrox/Simethicone (Aluminum/Magnesium Susp 30 Ml Udc) 30 ml PO Q4H PRN PRN Reason: GI Upset Stop: 03/16/23 03:26 Aspirin (Aspirin 81 Mg Ectab) 81 mg PO QAM DELMER Stop: 03/16/23 08:59 Last Admin: 02/24/23 08:38 Dose: 81 mg Bismuth Subsalicylate (Bismuth Subsalicylate Liqd 236 Ml) 15 ml PO PRN PRN PRN Reason: Loose Stool Stop: 03/16/23 03:26 Celecoxib (Celecoxib 100 Mg Cap) 100 mg PO BID [facility] Stop: 03/16/23 09:59 Last Admin: 02/24/23 08:39 Dose: 100 mg Clozapine (Clozapine 100 Mg Tab) 300 mg PO HS [facility]; Protocol Stop: 03/16/23 21:59 Last Admin: 02/23/23 20:26 Dose: 300 mg Clozapine (Clozapine 25 Mg Tab) 50 mg PO DAILY DELMER Stop: 03/22/23 08:59 Last Admin: 02/24/23 08:39 Dose: 50 mg Gabapentin (Gabapentin 300 Mg Cap) 300 mg PO HS [facility] Stop: 03/16/23 21:59 Last Admin: 02/23/23 20:27 Dose: 300 mg Hydroxyzine HCl (Hydroxyzine Hcl 25 Mg Tab) 50 mg PO HSZ PRN PRN Reason: Insomnia Stop: 03/16/23 03:26 Hydroxyzine HCl (Hydroxyzine Hcl 25 Mg Tab) 25 mg PO Q4H PRN PRN Reason: Anxiety Stop: 03/16/23 03:26 Lamotrigine (Lamotrigine 100 Mg Tab) 200 mg PO BID [facility] Stop: 03/16/23 08:59 Last Admin: 02/24/23 08:39 Dose: 200 mg Levothyroxine Sodium (Levothyroxine Sodium 175 Mcg Tablet) 175 mcg PO DAILY DELMER Stop: 03/16/23 08:59 Last Admin: 02/24/23 08:39 Dose: 175 mcg Lidocaine (Lidocaine 5% 1 Patch) 1 patch TD DAILY@1700 [facility] Stop: 03/16/23 16:59 Last Admin: 02/23/23 16:54 Dose: 1 patch Magnesium Hydroxide (Magnesium Hydroxide Susp 30 Ml Udc) 30 ml PO DAILY PRN PRN Reason: Constipation Stop: 03/16/23 03:26 Meclizine HCl (Meclizine Hcl 25 Mg Tab) 25 mg PO QAM PRN PRN Reason: Dizziness Stop: 03/16/23 08:42 Metformin HCl (Metformin Hcl Er 500 Mg Tabcr) 1,000 mg PO DAILY DELMER Stop: 03/16/23 09:59 Last Admin: 02/24/23 08:38 Dose: 1,000 mg Miconazole Nitrate (Miconazole Nitrate Powder 85 Gm) 1 appln EXT PRN PRN PRN Reason: Rash Stop: 03/16/23 08:51 Miscellaneous (Remove Lidoderm Patch) 1 each N/A DAILY@0500 [facility] Stop: 03/17/23 04:59 Last Admin: 02/24/23 04:21 Dose: 1 each Pantoprazole Sodium (Pantoprazole 40 Mg Tab) 40 mg PO QAM DELMER Stop: 03/16/23 09:59 Last Admin: 02/24/23 08:38 Dose: 40 mg Polyethylene Glycol (Polyethylene (Miralax) 17 Gm Pack) 17 gm PO DAILY PRN PRN Reason: constipation Stop: 03/16/23 08:53 Quetiapine Fumarate (Quetiapine Fumarate 300 Mg Tablet) 300 mg PO HS DELMER Stop: 03/16/23 21:59 Last Admin: 02/23/23 20:27 Dose: 300 mg Quetiapine Fumarate (Quetiapine Fumarate 100 Mg Tablet) 100 mg PO QAM DELMER Stop: 03/16/23 09:59 Last Admin: 02/24/23 08:38 Dose: 100 mg Rosuvastatin Calcium (Rosuvastatin Calcium 20 Mg Tab) 20 mg PO HS DELMER Stop: 03/16/23 21:59 Last Admin: 02/23/23 20:27 Dose: 20 mg Sodium Chloride (Sodium Chloride 0.65% Na Soln 45 Ml ([place])) 1 - 2 sprays NA PRN PRN PRN Reason: Nasal Dryness/Congestion Stop: 03/16/23 03:26 Vitamin D (Cholecalciferol 1,000 Units 25 Mcg Tab) 1,000 units PO BID DELMER Stop: 03/16/23 09:59 Last Admin: 02/24/23 08:39 Dose: 1,000 units Mental Health & Subst Abuse Tx Psychiatrist Name of Psychiatrist: Dian Zhou Psychiatrist's Date Of Appointment With Psychiatric Provider: 03/04/23 Time of Appointment with Psychiatrist: 9:20 AM Psychiatric Appointment Comment: [id number] [place] [address] Therapist Name of Therapist: [facility] Appointment Comment: Please resume your normal schedule. [employer] Name of [employer]: AGNES Myers Case Management Appointment Comment: Please resume your normal schedule. Post Discharge Appointments Primary Care Physician Name Of Family Doctor/PCP: [facility] Date of Future Appointment with PCP: 03/04/23 Time of Appointment with PCP: 1:00 PM Provider Appointment Comment: [address] [facility] [place] [address] Contact Information Discharge Discharge Address: [facility] [address], [place] [address] (1) Schizoaffective disorder Schizoaffective disorder type: bipolar Qualified Code(s): F25.0 - Schizoaffective disorder, bipolar type
[2023-02-24] MEDS: LIDOCAINE 5% 1 PATCH TD SCH (17:26)
[2023-02-24] MEDS: cloZAPine 100 MG TAB PO SCH (20:29)
[2023-02-24] MEDS: GABAPENTIN 300 MG CAP PO SCH (20:30)
[2023-02-24] MEDS: QUEtiapine FUMARATE 300 MG TABLET PO SCH (20:30)
[2023-02-24] MEDS: ROSUVASTATIN CALCIUM 20 MG TAB PO SCH (20:31)
[2023-02-25] MEDS: CHOLECALCIFEROL 1,000 UNITS 25 MCG TAB PO SCH (08:49)
[2023-02-25] MEDS: CELECOXIB 100 MG CAP PO SCH (08:49)
[2023-02-25] MEDS: ASPIRIN 81 MG ECTAB PO SCH (08:49)
[2023-02-25] MEDS: cloZAPine 25 MG TAB PO SCH (08:50)
[2023-02-25] MEDS: lamoTRIgine 100 MG TAB PO SCH (08:51)
[2023-02-25] MEDS: LEVOTHYROXINE SODIUM 175 MCG TABLET PO SCH (08:52)
[2023-02-25] MEDS: metFORMIN HCL ER 500 MG TABCR PO SCH (08:53)
[2023-02-25] MEDS: PANTOprazole 40 MG TAB PO SCH (08:53)
[2023-02-25] MEDS: QUEtiapine FUMARATE 100 MG TABLET PO SCH (08:54)
[2023-02-25] MEDS ORDERED: cloZAPine 100 MG TAB PO SCH (09:00)
--- NOTE | 2023-02-25 11:02 | Discharge Summary ---
Date of Service February 25, 2023 History of Present Illness [facility] mobile psych provider reported two day progressive decline, repeatedly stating she's a child and asking to be adopted. There are ongoing concerns about medication non compliance after which she quickly becomes hypersomnolent and anhedonic. She actually moved to a nicer apartment but the change has been stressful. She hasn't been eating as well. The patient had been seen the previous day in the ED for anxiety and was discharged. Physical Exam Psychiatric Orientation: alert, oriented to person, oriented to place, oriented to time and cooperative Apperance: appropriately dressed, appropriately groomed and + disheveled Eye Contact: + fair eye contact Speech: normal rate/rhythm/volume of speech Affect: euthymic affect and mood congruent with affect Mood: no depressed mood and no anxious mood Thought Process: + circumstantial thought process and + tangential thought process Thought Content: reality based without delusions and + loneliness Suicidal Thoughts: denies suicidal thoughts, denies suicidal plan and denies suicidal intent Homicidal Thoughts: denies homicidal thoughts Hallucinations: no auditory hallucinations and no visual hallucinations Cognition: attention grossly intact and language grossly intact Estimated Intelligence: consistent with education level Insight: + limited insight Judgment: + limited judgement Vital Signs (Past 24 Hours) Last Vital Signs Temp 36.6 C 02/25/23 06:42 Pulse 77 02/25/23 06:42 Resp 16 02/25/23 06:42 BP 119/76 02/25/23 06:42 Pulse Ox 99 02/22/23 05:16 O2 Del Method Room Air 02/22/23 05:16 See admission H&P and DOD assessment. Principal Diagnosis Schizoaffective Disorder, Depressed Type Psychiatric Data See daily stay summary. In short, safety was maintained and the patient was cooperative with care. Medication changes included resuming her outpatient prescribed medications and they tolerated this well. A family session was held and safety plan was completed prior to discharge. Day of Discharge Assessment Today the patient voices readiness for discharge. They note improvement in mood and deny thoughts to harm self or others. Thoughts remain organized and they are improved from admission. There is no evidence of psychosis. They agree to take mediations as prescribed and keep follow-up appointments. They are stable for discharge to outpatient level of care. Overall I spent a total of 38 minutes for this discharge including review of chart records, review of test results, direct evaluation of the patient [id number], counseling the patient, reconciling and ordering medication, medication education with the patient, risk assessment, discussion during interdisciplinary treatment rounds, and documentation in the electronic health record. Transition of Care Transition Of Care Record: was reviewed with the patient Advance Directives Advance Directives Information Provided: Yes Advance Directives: No Mental Health Advance Directive: No Advance Directives on File: No Living Will: No Power of Architectural Intern: No Advance Directives Reason:: Declines as Mental Health Visit. Suicide Risk Level Suicide Risk Level Comments: Suicide risk at discharge is deemed low as the patient is no longer requiring 24-hr monitoring, has a safety plan, and is free of suicidal ideation at discharge. Risk Factors Assessment Male: No : Yes Do You Have Access To A Gun?: No Health Problems: Yes Mental Health Diagnoses: Yes Substance Use Disorders: No Previous Attempt: No (The patient denies any history of suicide attempts, but history is long) Family History of Suicide: No Previous Psychiatric Hospitalization: Yes Hopelessness: No Protective Factors Assessment Employed: No Stable Relationships: Yes Total Time Total Time Spent: Greater Than 30 Minutes Total Time Includes: Examination of the patient, Discharge Planning, Medication Reconciliation and As well as (documentation) Discharge Data Lab Results 02/14/23 02/19/23 00:45 08:29 WBC 4.84 RBC 3.60 L Hgb 10.9 L Hct 33.3 L MCV 92.5 MCH 30.3 MCHC 32.7 RDW Std Deviation 47.1 H RDW Coeff of Radha 13.8 Plt Count 265 MPV 9.4 Immature Gran % (Auto) 0.4 Neut % (Auto) 65.1 Lymph % (Auto) 25.0 Whitman % (Auto) 6.4 Eos % (Auto) 2.3 Baso % (Auto) 0.8 Neut # (Auto) 3.15 Lymph # (Auto) 1.21 Whitman # (Auto) 0.31 Eos # (Auto) 0.11 Baso # (Auto) 0.04 Immature Gran # (Auto) 0.02 Urine Color Yellow Urine Appearance Cloudy A Urine pH 5.5 Ur Specific [facility] 1.024 Urine Protein Negative Urine Glucose (UA) Negative Urine Ketones Negative Urine Blood Negative Urine Nitrite Negative Urine Bilirubin Negative Urine Urobilinogen Negative Ur Leukocyte Esterase Negative Urine WBC (Auto) 1-5 Urine RBC (Auto) 0-4 U Hyaline Cast (Auto) 1-5 U Epithel Cells (Auto) >30 H Urine Bacteria (Auto) 2+ H Urine Opiates Screen Neg Ur Methadone, Qual Neg Urine Barbiturates Neg Ur Phencyclidine (PCP) Neg U Amphetamin/Meth Scrn Neg Urine MDEA negative MDMA (Ecstasy) Screen Pos H MDMA negative Urine MDMA negative U Benzodiazepines Scrn Neg Ur Cocaine Metabolite Neg U Marijuana (THC) Screen Neg Hospital Course (1) Schizoaffective disorder: Plan 02/24/2023: * increase clozapine back to prior to admission dose of 150 mg QAM and 350 mg QHS - reduced 02/18/2023 from 150 mg QAM & 450 mg QHS * continue quetiapine 100 mg QAM and 300 mg QHS - prior to admission medication * anticipate discharge in 1-2 days 02/23/2023: * continue clozapine 50 mg QAM and 350 mg QHS - reduced 02/18/2023 from 150 mg QAM & 450 mg QHS * continue quetiapine 100 mg QAM and 300 mg QHS - prior to admission medication * anticipate discharge in 2-3 days 02/22/2023: * Clozapine 50mg qAM and 350mg HS--previously 150mg qAM and 450mg HS * Continue Seroquel 100mg qAM and 300mg HS 02/21/2023: * Clozapine 50mg qAM and 350mg HS--previously 150mg qAM and 450mg HS * Continue Seroquel 100mg qAM and 300mg HS 02/20/2023: * Clozapine 50mg qAM and 350mg HS--previously 150mg qAM and 450mg HS * Continue Seroquel 100mg qAM and 300mg HS 02/19/2023: * Clozapine 50mg qAM and 350mg HS--previously 150mg qAM and 450mg HS * Continue Seroquel 100mg qAM and 300mg HS 02/18/2023: * Clozapine reduced to 50mg qAM and 350mg HS--reduced from 150mg qAM and 450mg HS on 02/18/23 * Continue Seroquel 100mg qAM and 300mg HS 02/17/2023: continue current medications and tx plan. 02/16/2023: continue current medications and tx plan. 02/15/23: continue current meds as hx of encephalopathy around med compliance and reestablishing med compliance. She is readily redirectible in this setting without additional prns and does have periods of sedation. Patient has a hx of significant dystonia on Haldol and has been on current medications for a long time. looking at previous trials on file here, I do not see Abilify. 02/14/23: The patient was admitted to the [facility] ([facility]) on q15 min checks (behavioral with suicide precautions) for safety. The patient will participate in group, recreational, and milieu therapies and will be offered additional individual and family sessions as clinically appropriate. Resume home medications as reconstituted quickly last time but will likely need to revisit d/c Seroquel in favor of a MURRAY in combo with clozaril. Mental Health & Subst Abuse Tx Psychiatrist Name of Psychiatrist: Dian Zhou Psychiatrist's Date Of Appointment With Psychiatric Provider: 03/04/23 Time of Appointment with Psychiatrist: 9:20 AM Psychiatric Appointment Comment: [id number] [place] [id number] Psychiatrist Release of Information: Obtained, Reviewed and Signed Therapist Name of Therapist: [facility] Appointment Comment: Please resume your normal schedule. [employer] Name of [facility] [employer]: AGNES Myers Case Management Appointment Comment: Please resume your normal schedule. [employer] Contact [employer] Release of Information: Obtained, Reviewed and Signed Post Discharge Appointments Primary Care Physician Name Of Family Doctor/PCP: [facility] Date of Future Appointment with PCP: 03/04/23 Time of Appointment with PCP: 1:00 PM Provider Appointment Comment: [address] [place] [place] [address] Contact Information Discharge Discharge Address: [facility] [address], [place] [address] Discharge Plan Discharge Items Patient Disposition: Personal Group Home Reason For Visit: SCHIZOAFFECTIVE DISORDER Discharge Diagnosis: Schizoaffective Disorder, Depresive Type Activity: Resume your previous activity Non-emergency contact: Primary Care Provider and Psychiatrist Call non-emergency contact if: your symptoms worsen Follow-up/Referrals: Vandana Montgomery MD [Primary Care Provider] - Diet: Carb Consistent or DM2 Addtl Attending Provider Instructions: SPECIAL CARE INSTRUCTIONS: 1. Follow through with your scheduled aftercare appointments. If unable to keep an appointment, please call to reschedule. 2. Take your medication only as prescribed. Medication should not be changed or stopped without the approval of your doctor. In the event of worsening symptoms or concerns about side effects, contact your doctor immediately. 3. Utilize new healthy coping skills, anger management skills, and stress management skills learned during your hospitalization. Journal feelings and process them with a support person. Identify stressors or situations that may result in relapse, deterioration or inappropriate behaviors and develop a plan to deal with those issues. 4. If your coping skills are ineffective and you are in crisis, contact your outpatient providers for direction. If unable to reach your providers, please call the [facility] CRISIS LINE AT , go to the [facility] walk-in center at [address] [place] [address] A, [place], or go to the closest Emergency Room. 5. Avoid alcohol and un-prescribed drugs. 6. You have been provided with the Mental Health Advance Directives Pamphlet for your review. 7. Your condition is stable for discharge to outpatient level of care, but recovery is an ongoing process. Ifthoughts to harm yourself or others return, follow the safety plan developed during your stay. Planning for a safe return home includes securing weapons. Our treatment team recommends weaponsbe removed from the home until your outpatient provider reassesses your progress. In rare cases where the items themselvescannot be removed, guns and ammunitionshould be secured separatelyand keys stored by a reliable personoutside of the home. If you were admitted on an involuntary commitment, the police or other legal authorities may be involved in this process. AFTERCARE APPOINTMENTS: * Please call your insurance company prior to your scheduled appointment to confirm your aftercare providers are covered. Take your insurance information to your appointments. WHO TO CALL AND WHEN: Medical Emergencies: For questions or emergencies related to your hospital stay, please contact the Inpatient Behavioral Health Unit at [phone]. A electrical engineering draftsperson is on-call 29/10 for the Behavioral Health Unit for emergencies At any time you feel your situation is an emergency, you may also call 911 immediately. Stand-Alone Forms: My [employer], Smoking Cessation Skilled Items Patient informed of condition?: Yes DNR: No Discharge Level of Care: Other Communicable Disease: No Discharge Prognosis: Improving Lines: None Urinary Catheter: No Medications and DC Order Prescriptions: Continued aspirin [Enteric Coated Aspirin] 81 mg tablet,delayed release (DR/EC) 81 mg PO QAM Qty: 90 3RF metformin 500 mg tablet extended release 24 hr 1,000 mg PO QAM Qty: 180 3RF cholecalciferol (vitamin D3) 25 mcg (1,000 unit) tablet 25 mcg PO BID Qty: 180 3RF omeprazole 20 mg capsule,delayed release(DR/EC) 40 mg PO QAM 90 Days Qty: 180 2RF levothyroxine 175 mcg tablet 175 mcg PO DAILY 90 Days Qty: 90 3RF acetaminophen [Tylenol Extra Strength] 500 mg tablet 1,000 mg PO TID PRN (Reason: Mild Pain (Scale Score 1-4)) clozapine 50 mg tablet 50 mg PO BID Qty: 14 0RF clozapine 100 mg Tablet 300 mg PO HS clozapine 100 mg tablet 100 mg PO QAM Qty: 7 0RF lidocaine 5 % Adhesive Patch,Medicated 1 patch transdermal DAILY@1700 Qty: 15 0RF celecoxib [Celebrex] 100 mg Capsule 100 mg PO BID Qty: 60 0RF polyethylene glycol 3350 [Miralax] 17 gram/dose powder 17 g PO DAILY PRN (Reason: constipation) Qty: 119 0RF gabapentin 300 mg capsule 300 mg PO HS nystatin 100,000 unit/gram powder 1 applic topical BID PRN (Reason: Rash) No Action lamotrigine 200 mg tablet 200 mg PO BID Discharge Orders: Discharge Order (Routine); Ordered 02/25/23 Ordered By: Bryan Ribera Admission Data Admit Date/Time: 02/14/23 02:46 Attending Provider: Abby Sultana Admit Provider: Mirella Farias Primary Care Provider: Vandana Montgomery Other Interventions: Discharge Summary Assessment (RN) Last Done: 02/25/23 12:40 Coding Level of Care Code 31519 D/C day mgmt > 30 min Diagnoses Schizoaffective disorder, bipolar type F25.0 Schizoaffective disorder type: bipolar Time Spent (min) 38
== END 2023-02-25 14:10 | disposition home or self-care (01) | DRG 885 ==
LOC: ED 18:54 → 3S 02-14 02:46 → SUATTDRO 02-14 02:46 → 3S 02-14 06:31
DX: Z88.0 Allergy status to penicillin; Z79.890 Hormone replacement therapy; R45.851 Suicidal ideations; F25.0 Schizoaffective disorder, bipolar type; Z79.899 Other long term (current) drug therapy; Z88.8 Allergy status to other drugs, medicaments and biological substances; Z79.82 Long term (current) use of aspirin; Z79.84 Long term (current) use of oral hypoglycemic drugs

== ENCOUNTER 2023-03-10 11:07 | Observation (INO) ==
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
[2023-03-10 11:58] LABS: iSTAT Creatinine 0.9 mg/dl (0.6-1.3); iSTAT Hemoglobin 10.2 g/dl (12.0-16.0); iSTAT Ionized Calcium 1.19 mmol/l (1.12-1.32)
--- NOTE | 2023-03-10 12:15 | XRay Report ---
XR chest 1V portable CLINICAL HISTORY: neuro deficit, acute stroke suspected COMPARISON STUDY: Chest radiograph March 02, 2023. FINDINGS: No pneumothorax or pleural effusion is present. There is mild cardiomegaly. Lower lung inte rstitial thickening is noted with possible patchy left basilar opacities. IMPRESSION: 1. Cardiomegaly without evidence for pulmonary edema. 2. Lower lung interstitial thickening with possible patchy left basilar opacities. The findings may b e chronic however an infectious process cannot be excluded. Radiographic follow-up is recommended. ACT 112: Negative or not required by law. Electronically signed by: Tony Hilliard M.D. 03/10/2023 12:13 PM
[2023-03-10 12:19] LABS: Basophils # (auto) 0.02 K/uL (0.00-0.20); Basophils % (auto) 0.4 %; Eosinophils # (auto) 0.06 K/uL (0.00-0.50); Eosinophils % (auto) 1.1 %; Hematocrit (blood only) 31.9 % (37.0-47.0); Hemoglobin 10.1 g/dl (12.0-16.0); Immature Granulocytes # (auto) 0.02 K/uL (0.01-0.20); Immature Granulocytes % (auto) 0.4 %; Lymphocytes # (auto) 0.71 K/uL (1.20-3.40); Lymphocytes % (auto) 13.2 %; Mean Corpuscular Hgb Conc 31.7 g/dL (32.0-36.0); Mean Corpuscular Volume 94.7 fL (80.0-100.0); Mean Platelet Volume 9.2 fL (9.4-12.4); Monocytes # (auto) 0.34 K/uL (0.11-0.59); Monocytes % (auto) 6.3 %; Neutrophils # (auto) 4.23 K/uL (1.40-6.50); Neutrophils % (auto) 78.6 %; Platelet Count 238 K/uL (130-400); RDW Coefficient of Variation 13.9 % (11.5-14.5); RDW Standard Deviation 47.8 fL (36.4-46.3); Red Blood Count 3.37 M/uL (4.20-5.40); White Blood Count 5.38 K/ul (4.8-10.8)
[2023-03-10 12:24] LABS: Acetaminophen < 3 ug/ml (10-30); Salicylate < 3.0 mg/dl (3.0-30)
[2023-03-10] MEDS ORDERED: OPTIRAY 320 125ml IV ONE (12:25)
--- NOTE | 2023-03-10 12:33 | CT Scan Report ---
CT OF THE HEAD WITHOUT CONTRAST CLINICAL HISTORY: neuro deficit, acute stroke suspected. Left facial droop. COMPARISON STUDY: Head CT March 02, 2023. TECHNIQUE: Helical axial images of the head were obtained without IV contrast. Automated exposure con trol was utilized for the study. A dose lowering technique was utilized adhering to the principles o f ALARA. FINDINGS: No acute intracranial hemorrhage, midline shift or mass effect is present. The ventricular system is unremarkable. The basal cisterns are patent. No extra-axial collections are present. There are no findings to suggest acute dural sinus thrombosis or acute territorial infarct. White matter hy podensities are unchanged and favor small vessel disease. There is mild sinus mucosal thickening. IMPRESSION: No acute intracranial findings. ACT 112: Negative or not required by law. Electronically signed by: Tony Hilliard M.D. 03/10/2023 12:32 PM
[2023-03-10 12:37] LABS: Albumin Globulin Ratio 1.9 (0.9-2); Albumin Level 4.3 gm/dl (3.4-5.0); BUN Creatinine Ratio 24.2 (10-20); Bilirubin,Total 0.4 mg/dl (0.2-1.0); Calcium 8.9 mg/dl (8.6-10.3); Creatinine Clr Calc Pharmacy 73.1 ml/min; Est GFR (African American) 78.4 ml/min; Est GFR (Non-African American) 67.6 ml/min; Globulin 2.3 gm/dl (2.5-4.0); Magnesium 1.7 mg/dl (1.7-2.4); Potassium 4.1 mmol/L (3.5-5.1); Total Protein 6.6 gm/dl (6.0-8.3)
--- NOTE | 2023-03-10 12:45 | CT Scan Report ---
CT ANGIOGRAPHY OF THE NECK WITH CONTRAST CLINICAL HISTORY: neuro deficit, acute stroke suspected COMPARISON STUDY: CTA of the neck October 28, 2022. Technique: CT angiography of the carotid and vertebral arteries was obtained using Optiray and 3D rec onstruction on an independent workstation. NASCET criteria was utilized. Automated exposure control was utilized for the study. A dose lowering technique was utilized adhering to the principles of ALA RA. CT DOSE: 1198.3 mGy.cm Findings: No cervical lymphadenopathy is present. Mild groundglass opacities with mosaic attenuation within the visualized lung apices are noted. The bilateral common carotid, cervical internal carotid and vertebral arteries are patent. There is no stenosis or dissection within these vessels. No plaque is identified. There is no aneurysm within the neck. CTA of the head will be reported separately. IMPRESSION: Unremarkable CTA of the neck. ACT 112: Negative or not required by law. Electronically signed by: Tony Hilliard M.D. 03/10/2023 12:44 PM
[2023-03-10 12:49] LABS: Partial Thromboplastin Ratio 0.9; Partial Thromboplastin Time 25.1 Seconds (21.0-31.0); Prothrombin Time 11.4 Seconds (9.0-12.0)
--- NOTE | 2023-03-10 12:50 | CT Scan Report ---
CTA ANGIOGRAPHY OF THE HEAD CLINICAL HISTORY: neuro deficit, acute stroke suspected COMPARISON STUDY: CTA of the head October 28, 2022. TECHNIQUE: Helical axial images of the head were obtained following uneventful intravenous administr ation of 116 cc of Optiray. Sagittal and coronal reconstructions were viewed as well as maximal inten sity projections on an independent 3-D workstation. Automated exposure control was utilized for the study. A dose lowering technique was utilized adhering to the principles of ALARA. FINDINGS: Ventricular system is unremarkable. Basal cisterns are patent. No extra axial collections a re present. No acute intracranial hemorrhage was identified on the head CT which will be reported sep arately. The bilateral M1, M2, A1 and A2 segments are patent. Posterior circulation is intact. There is no intracranial aneurysm. No stenoses are identified. No large vessel occlusion is present. IMPRESSION: Unremarkable CTA of the head. No large vessel occlusion. No intracranial aneurysm. ACT 112: Negative or not required by law. Electronically signed by: Tony Hilliard M.D. 03/10/2023 12:48 PM
--- NOTE | 2023-03-10 13:31 | Electrocardiogram Report ---
Test Reason : Blood Pressure : / mmHG Vent. Rate : 085 BPM Atrial Rate : 085 BPM P-R Int : 166 ms QRS Dur : 102 ms QT Int : 396 ms P-R-T Axes : 044 -27 048 degrees QTc Int : 471 ms Normal sinus rhythm Low voltage QRS Nonspecific T wave abnormality Prolonged QT Abnormal ECG When compared with ECG of 02-MAR-2023 10:31, No significant change was found Confirmed by Pablo Long ([id number]) on 03/10/2023 1:31:28 PM Referred By: Confirmed By:Pablo Long
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
[2023-03-10] MEDS ORDERED: PHARMACIST DISCHARGE MED REC CONSULT PRN (14:41)
[2023-03-10] MEDS ORDERED: LACTATED RINGER'S 1,000 ML IV ONE (15:13)
[2023-03-10] MEDS ORDERED: GLUCOSE 10 TAB/TUBE PO PRN (15:19)
[2023-03-10] MEDS ORDERED: CARBOHYDRATES FOR HYPOGLYCEMIA PO PRN (15:19)
[2023-03-10] MEDS ORDERED: DEXTROSE 50% 50 ML SYRINGE IV PRN (15:19)
[2023-03-10] MEDS ORDERED: GLUCAGON FOR INJ 1 MG VIAL SQ PRN (15:19)
[2023-03-10] MEDS ORDERED: GLUCOSE 40% GEL 15 GM TUBE PO PRN (15:19)
[2023-03-10] MEDS ORDERED: ASPIRIN 81 MG CHEW PO STA (15:34)
[2023-03-10 16:07] LABS: Thyroid Stimulating Hormone 0.283 uIu/ml (0.300-4.500)
--- NOTE | 2023-03-10 16:21 | Magnetic Resonance Report ---
Brain MRI WITHOUT CONTRAST HISTORY: Dizziness. Left arm weakness. stroke symptoms TECHNIQUE: Multiplanar multisequence MRI of the brain was performed without the use of contrast. COMPARISON STUDY: Head CT 03/10/2023. Brain MRI 05/18/2015. FINDINGS: There is no mass, hematoma, midline shift, or acute infarct. The mastoid air cells are starla r. The ventricles and sulci demonstrate mild age-related involutional changes. Scattered foci of T2 h yperintensity seen within the periventricular and subcortical white matter are nonspecific but sugges tive of mild microvascular ischemic changes. The major vascular flow voids at the skull base are well -maintained. Mild to moderate mucosal thickening within the paranasal sinuses. IMPRESSION: No acute intracranial abnormality. Scattered foci of T2 hyperintensity seen within the periventricula r and subcortical white matter are nonspecific but favor microvascular ischemic change. ACT 112: Negative or not required by law. Electronically signed by: Jermaine Cheek M.D. 03/10/2023 4:19 PM
[2023-03-10 16:43] LABS: T4 Free Thyroxine 1.01 ng/dl (0.61-1.60)
[2023-03-10] MEDS: INSULIN ASPART PER UNIT CHARGE SC SCH ×3 (17:27→21:21)
[2023-03-10] MEDS: GABAPENTIN 300 MG CAP PO SCH (21:11)
[2023-03-10] MEDS: cloZAPine 25 MG TAB PO SCH (21:11)
[2023-03-10] MEDS: cloZAPine 100 MG TAB PO SCH (21:11)
[2023-03-10] MEDS: lamoTRIgine 100 MG TAB PO SCH (21:12)
[2023-03-10] MEDS: QUEtiapine FUMARATE 300 MG TABLET PO SCH (21:12)
[2023-03-10 22:46] LABS: Influenza A virus by PCR Negative (Neg); Influenza B virus by PCR Negative (Neg); RSV by PCR Negative (Neg)
[2023-03-10 22:50] LABS: SARS CoV2 RNA(COVID-19) Ceph POSITIVE (Negative)
[2023-03-11 00:13] LABS: Appearance Urine Clear (Clear); Bilirubin Urine Negative (Negative); Blood Urine Negative (Negative); Color Urine Yellow; Glucose Urine UA Negative (Negative); Ketones Urine Negative (Negative); Leukocyte Esterase Urine Negative (Negative); Nitrite Urine Negative (Negative); Protein Urine Negative (Negative); Specific Gravity Urine 1.021 (1.000-1.030); Urobilinogen Urine Negative (Negative)
[2023-03-11] MEDS: LEVOTHYROXINE SODIUM 175 MCG TABLET PO SCH (05:55)
[2023-03-11] MEDS: INSULIN ASPART PER UNIT CHARGE SC SCH ×4 (07:59→20:34)
[2023-03-11] MEDS: lamoTRIgine 100 MG TAB PO SCH ×2 (08:38→19:55)
[2023-03-11] MEDS: PANTOprazole 40 MG TAB PO SCH (08:39)
[2023-03-11] MEDS: cloZAPine 25 MG TAB PO SCH ×2 (08:39→19:52)
[2023-03-11] MEDS: cloZAPine 100 MG TAB PO SCH ×2 (08:39→19:54)
[2023-03-11 08:40] LABS: Basophils # (auto) 0.02 K/uL (0.00-0.20); Basophils % (auto) 0.5 %; Eosinophils # (auto) 0.12 K/uL (0.00-0.50); Eosinophils % (auto) 2.7 %; Hematocrit (blood only) 31.1 % (37.0-47.0); Hemoglobin 9.7 g/dl (12.0-16.0); Immature Granulocytes # (auto) 0.02 K/uL (0.01-0.20); Immature Granulocytes % (auto) 0.5 %; Lymphocytes # (auto) 1.02 K/uL (1.20-3.40); Mean Corpuscular Hemoglobin 29.7 pg (25.0-34.0); Mean Corpuscular Hgb Conc 31.2 g/dL (32.0-36.0); Mean Corpuscular Volume 95.1 fL (80.0-100.0); Mean Platelet Volume 9.2 fL (9.4-12.4); Monocytes # (auto) 0.33 K/uL (0.11-0.59); Monocytes % (auto) 7.4 %; Neutrophils # (auto) 2.93 K/uL (1.40-6.50); Neutrophils % (auto) 65.9 %; Platelet Count 239 K/uL (130-400); RDW Coefficient of Variation 13.9 % (11.5-14.5); RDW Standard Deviation 48.6 fL (36.4-46.3); Red Blood Count 3.27 M/uL (4.20-5.40); White Blood Count 4.44 K/ul (4.8-10.8)
[2023-03-11] MEDS: ASPIRIN 81 MG ECTAB PO SCH (08:40)
[2023-03-11 08:54] LABS: Albumin Level 3.8 gm/dl (3.4-5.0); BUN Creatinine Ratio 20.9 (10-20); Bilirubin,Total 0.3 mg/dl (0.2-1.0); Calcium 8.9 mg/dl (8.6-10.3); Creatinine Clr Calc Pharmacy 74.3 ml/min; Est GFR (African American) 83.9 ml/min; Est GFR (Non-African American) 72.4 ml/min; Globulin 1.9 gm/dl (2.5-4.0); Magnesium 1.8 mg/dl (1.7-2.4); Potassium 4.5 mmol/L (3.5-5.1); Total Protein 5.7 gm/dl (6.0-8.3)
[2023-03-11 09:01] LABS: INR 1.1 (0.9-1.1); Prothrombin Time 11.6 Seconds (9.0-12.0)
--- NOTE | 2023-03-11 13:22 | XCELERA ---
[id number] \\[id number]
--- NOTE | 2023-03-11 13:48 | Hospitalist Progress Note ---
Date of Service March 11, 2023 Assessment & Plan (1) Stroke-like symptoms: Plan: She appears to have benign positional vertigo. Brain MRI scan negative for CVA. She has no focal findings. She is now on scheduled doses of meclizine along with several doses of Solu-Medrol. Supportive care. OT and PT assessments when she is able. (2) Dizziness: Plan: Appears to be due to benign positional vertigo. She states she takes meclizine at home on a as needed basis. Brain MRI scan negative for CVA. She is now on scheduled meclizine dosing along with several doses of parenteral methylprednisolone. (3) Schizoaffective disorder: Plan: Stable. Supportive care. 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 ADA diet. Sliding scale coverage. (5) Hypothyroidism: Plan: Stable. Continue replacement therapy with levothyroxine (6) Hypertension: Plan: Stable. Continue current medical management Plan To be determined by OT and PT results and patient clinical course Admission and Anticipated Discharge Date Admission Date: March 10, 2023 Subjective Symptoms are consistent with benign positional vertigo. She states she takes meclizine at home on a as needed basis. Brain MRI scan negative for CVA. Will treat with scheduled meclizine therapy and several doses of Solu-Medrol. OT and PT assessments will determine if she can return to [facility] long term or whether she needs to go to [facility]. COVID swab was positive on admission but she has no significant viral symptoms at this time. Review of Systems 2 Review of Systems: Constitutional-no fever or chills ENT-no blurred vision, no double vision, no epistaxis, no sore throat Respiratory-no cough, no wheezing, no shortness of breath Cardiac-no palpitations, no chest pain, no syncope GI-no nausea, vomiting, diarrhea, melena, hematochezia -no urinary retention, no urinary incontinence, no dysuria, no hematuria Musculoskeletal-no joint pain, no muscle tenderness Skin-no bruising, no rashes, no pruritus Neuro-no isolated weakness. Intermittent vertigo with movement Psych-no depression, no anxiety Physical Exam 2 Physical Exam: General-alert and oriented x3, no fevers, no chills HEENT-head atraumatic and normocephalic, pupils equal and reactive to light, extraocular muscles intact Neck-no lymphadenopathy or thyromegaly, trachea midline Chest-clear to auscultation percussion. No rales wheezing or rhonchi Cardiac-regular rate and rhythm, normal S1 and S2 Abdomen-normal bowel sounds, nontender, no hepatosplenomegaly Extremities-no cyanosis, clubbing, or edema Neuro-cranial nerves II through XII intact, motor and sensory function within normal limits, strength symmetrical , no focal deficits. Nystagmus noted with right lateral gaze Psych-normal affect, normal mood Results & Data Results & Data Vital Signs (Past 12 Hours) Vital Signs Temp Pulse Pulse Resp BP Pulse Ox O2 Del Method 03/11/23 11:41 37.1 C 80 18 117/78 96 Room Air 03/11/23 09:00 Room Air 03/11/23 08:52 81 03/11/23 07:54 37.6 C H 80 18 118/71 97 Room Air 03/11/23 03:30 36.8 C 77 17 100/63 96 Room Air Laboratory Results 03/11/23 07:49 03/11/23 07:49 PG Care Time/CCT Total # of Minutes Spent Total Time Spent with Patient: Total time spent is greater than 50% in coordination of care (as documented) at patient's floor/unit and/or counseling patient: Coding Level of Care Code 64651 SUB INP/OBS CARE 3/50MIN Diagnoses Stroke-like symptoms R29.90 Dizziness R42 Schizoaffective disorder, bipolar type F25.0 Schizoaffective disorder type: bipolar 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 E11.319 Hypothyroidism E03.9 Hypertension I10 (3) Schizoaffective disorder Schizoaffective disorder type: bipolar Qualified Code(s): F25.0 - Schizoaffective disorder, bipolar type
[2023-03-11] MEDS: methylPREDNISolone 40 MG in SYRINGE 0 ML IV SCH ×2 (15:10→20:28)
[2023-03-11] MEDS: MECLIZINE 12.5 MG TAB PO SCH ×2 (15:10→19:56)
[2023-03-11] MEDS: GABAPENTIN 300 MG CAP PO SCH (19:55)
[2023-03-11] MEDS: QUEtiapine FUMARATE 300 MG TABLET PO SCH (19:57)
[2023-03-12] MEDS: methylPREDNISolone 40 MG in SYRINGE 0 ML IV SCH ×2 (05:56→15:57)
[2023-03-12] MEDS: LEVOTHYROXINE SODIUM 175 MCG TABLET PO SCH (05:57)
[2023-03-12] MEDS: PANTOprazole 40 MG TAB PO SCH (08:32)
[2023-03-12] MEDS: ASPIRIN 81 MG ECTAB PO SCH (08:32)
[2023-03-12] MEDS: cloZAPine 25 MG TAB PO SCH ×2 (08:32→21:07)
[2023-03-12] MEDS: MECLIZINE 12.5 MG TAB PO SCH ×2 (08:33→12:48)
[2023-03-12] MEDS: lamoTRIgine 100 MG TAB PO SCH ×2 (08:34→21:07)
[2023-03-12 08:35] LABS: Basophils # (auto) 0.01 K/uL (0.00-0.20); Basophils % (auto) 0.2 %; Hematocrit (blood only) 31.4 % (37.0-47.0); Hemoglobin 10.4 g/dl (12.0-16.0); Immature Granulocytes % (auto) 1.5 %; Lymphocytes # (auto) 0.51 K/uL (1.20-3.40); Lymphocytes % (auto) 7.7 %; Mean Corpuscular Hemoglobin 30.3 pg (25.0-34.0); Mean Corpuscular Hgb Conc 33.1 g/dL (32.0-36.0); Mean Corpuscular Volume 91.5 fL (80.0-100.0); Mean Platelet Volume 9.1 fL (9.4-12.4); Monocytes % (auto) 1.5 %; Neutrophils # (auto) 5.91 K/uL (1.40-6.50); Neutrophils % (auto) 89.1 %; Platelet Count 265 K/uL (130-400); RDW Coefficient of Variation 13.6 % (11.5-14.5); RDW Standard Deviation 45.6 fL (36.4-46.3); Red Blood Count 3.43 M/uL (4.20-5.40); White Blood Count 6.63 K/ul (4.8-10.8)
[2023-03-12] MEDS: cloZAPine 100 MG TAB PO SCH ×2 (08:35→21:06)
[2023-03-12] MEDS: INSULIN ASPART PER UNIT CHARGE SC SCH ×4 (08:36→21:17)
[2023-03-12 08:49] LABS: Albumin Level 4.1 gm/dl (3.4-5.0); BUN Creatinine Ratio 29.5 (10-20); Bilirubin,Total 0.3 mg/dl (0.2-1.0); Calcium 9.3 mg/dl (8.6-10.3); Creatinine Clr Calc Pharmacy 81.1 ml/min; Est GFR (African American) 94.4 ml/min; Est GFR (Non-African American) 81.5 ml/min; Magnesium 1.9 mg/dl (1.7-2.4); Potassium 4.2 mmol/L (3.5-5.1); Total Protein 6.1 gm/dl (6.0-8.3)
[2023-03-12 09:03] LABS: Prothrombin Time 11.3 Seconds (9.0-12.0)
--- NOTE | 2023-03-12 18:16 | Hospitalist Progress Note ---
Date of Service March 12, 2023 Assessment & Plan (1) Stroke-like symptoms: Plan: She appears to have benign positional vertigo. Brain MRI scan negative for CVA. She has no focal findings. She is now on scheduled doses of meclizine along with several doses of Solu-Medrol. Supportive care. OT and PT ass (2) Dizziness: Plan: Appears to be due to benign positional vertigo. She states she takes meclizine at home on a as needed basis. Brain MRI scan negative for CVA. She is now on scheduled meclizine dosing along with several doses of parenteral methylprednisolone switched to as needed meclizine (3) Schizoaffective disorder: Plan: Stable. Supportive care. 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 ADA diet. Sliding scale coverage. (5) Hypothyroidism: Plan: Stable. Continue replacement therapy with levothyroxine (6) Hypertension: Plan: Stable. Continue current medical management Plan To be determined by OT and PT results and patient clinical course Admission and Anticipated Discharge Date Admission Date: March 10, 2023 Subjective The patient is doing better, tach is much less, pending placement Review of Systems Review of Systems: Constitutional-no fever or chills ENT-no blurred vision, no double vision, no epistaxis, no sore throat Respiratory-no cough, no wheezing, no shortness of breath Cardiac-no palpitations, no chest pain, no syncope GI-no nausea, vomiting, diarrhea, melena, hematochezia -no urinary retention, no urinary incontinence, no dysuria, no hematuria Musculoskeletal-no joint pain, no muscle tenderness Skin-no bruising, no rashes, no pruritus Neuro-no isolated weakness. Intermittent vertigo with movement Psych-no depression, no anxiety Physical Exam Physical Exam: General-alert and oriented x3, no fevers, no chills HEENT-head atraumatic and normocephalic, pupils equal and reactive to light, extraocular muscles intact Neck-no lymphadenopathy or thyromegaly, trachea midline Chest-clear to auscultation percussion. No rales wheezing or rhonchi Cardiac-regular rate and rhythm, normal S1 and S2 Abdomen-normal bowel sounds, nontender, no hepatosplenomegaly Extremities-no cyanosis, clubbing, or edema Neuro-cranial nerves II through XII intact, motor and sensory function within normal limits, strength symmetrical , no focal deficits. Nystagmus noted with right lateral gaze Psych-normal affect, normal mood Results & Data Results & Data Vital Signs (Past 12 Hours) Vital Signs Temp Pulse Resp BP Pulse Ox O2 Del Method 03/12/23 15:16 36.9 C 88 18 125/77 91 Room Air 03/12/23 11:40 37.0 C 94 H 18 105/68 95 Room Air 03/12/23 07:52 36.9 C 83 18 128/76 93 Room Air PG Care Time/CCT Total # of Minutes Spent Total Time Spent with Patient: Total time spent is greater than 50% in coordination of care (as documented) at patient's floor/unit and/or counseling patient: Coding Level of Care Code 41545 SUB INP/OBS CARE 2/35MIN Diagnoses Stroke-like symptoms R29.90 Dizziness R42 Schizoaffective disorder, bipolar type F25.0 Schizoaffective disorder type: bipolar 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 E11.319 Hypothyroidism E03.9 Hypertension I10 (3) Schizoaffective disorder Schizoaffective disorder type: bipolar Qualified Code(s): F25.0 - Schizoaffective disorder, bipolar type
[2023-03-12] MEDS ORDERED: MECLIZINE 12.5 MG TAB PO PRN (18:17)
[2023-03-12] MEDS: GABAPENTIN 300 MG CAP PO SCH (21:07)
[2023-03-12] MEDS: QUEtiapine FUMARATE 300 MG TABLET PO SCH (21:07)
[2023-03-13] MEDS: LEVOTHYROXINE SODIUM 175 MCG TABLET PO SCH (05:37)
[2023-03-13] MEDS: INSULIN ASPART PER UNIT CHARGE SC SCH ×2 (08:56→13:05)
[2023-03-13] MEDS: cloZAPine 25 MG TAB PO SCH (09:04)
[2023-03-13] MEDS: ASPIRIN 81 MG ECTAB PO SCH (09:04)
[2023-03-13] MEDS: lamoTRIgine 100 MG TAB PO SCH (09:05)
[2023-03-13] MEDS: PANTOprazole 40 MG TAB PO SCH (09:05)
[2023-03-13] MEDS: cloZAPine 100 MG TAB PO SCH (09:06)
[2023-03-13 09:14] LABS: Basophils # (auto) 0.01 K/uL (0.00-0.20); Basophils % (auto) 0.1 %; Eosinophils # (auto) 0.01 K/uL (0.00-0.50); Eosinophils % (auto) 0.1 %; Hemoglobin 10.2 g/dl (12.0-16.0); Immature Granulocytes # (auto) 0.08 K/uL (0.01-0.20); Immature Granulocytes % (auto) 0.7 %; Lymphocytes # (auto) 1.28 K/uL (1.20-3.40); Lymphocytes % (auto) 11.4 %; Mean Corpuscular Hgb Conc 32.9 g/dL (32.0-36.0); Mean Corpuscular Volume 91.2 fL (80.0-100.0); Mean Platelet Volume 9.5 fL (9.4-12.4); Monocytes # (auto) 0.59 K/uL (0.11-0.59); Monocytes % (auto) 5.3 %; Neutrophils # (auto) 9.22 K/uL (1.40-6.50); Neutrophils % (auto) 82.4 %; Platelet Count 277 K/uL (130-400); RDW Coefficient of Variation 13.6 % (11.5-14.5); White Blood Count 11.19 K/ul (4.8-10.8)
[2023-03-13 09:40] LABS: Prothrombin Time 11.2 Seconds (9.0-12.0)
[2023-03-13 09:44] LABS: Albumin Globulin Ratio 1.8 (0.9-2); Albumin Level 3.9 gm/dl (3.4-5.0); BUN Creatinine Ratio 34.1 (10-20); Bilirubin,Total 0.2 mg/dl (0.2-1.0); Calcium 9.1 mg/dl (8.6-10.3); Creatinine Clr Calc Pharmacy 74.2 ml/min; Est GFR (African American) 85.1 ml/min; Est GFR (Non-African American) 73.4 ml/min; Globulin 2.2 gm/dl (2.5-4.0); Magnesium 2.1 mg/dl (1.7-2.4); Total Protein 6.1 gm/dl (6.0-8.3)
--- NOTE | 2023-03-13 19:38 | Discharge Summary ---
Date of Service March 13, 2023 Admission HPI Per Admitting Provider Farrah is a 62 year old female with a PMH significant for Schizoaffective disorder with multiple recent admissions to the [facility] inpatient psychiatric floor, previous CVA with left-sided weakness, DMII, HTN, hypothyroidism, drug- induced parkinsonism, and chronic neuropathy who presented to the [facility] ED via EMS with complaints of dizziness upon waking this am. Per the ED staff, when EMS arrived they noted mild left-sided facial droop and slurred speech. She remained stable in the ED. Labs were significant for a lymphocyte count of 0.71 but were otherwise unremarkable. CT head and CTA head/neck were read as negative for acute findings. Chest xray was read as "1. Cardiomegaly without evidence for pulmonary edema. 2. Lower lung interstitial thickening with possible patchy left basilar opacities. The findings may be chronic however an infectious process cannot be excluded. Radiographic follow-up is recommended.". The patient was given no medications prior to admission. At the time of the exam the patient was sitting in bed and appears very lethargic/fatigued with possible right facial droop. After waking her the patient is oriented and responding to questions appropriately. When asked, she states that she woke up this am with dizziness. She does have a history of vertigo but denies this dizziness being similar to her classic vertigo symptoms. When asked, she denies the room spinning and states that closing her eyes does not improve her symptoms. She felt fine when she went to [facility] last night. When asked about new weakness she states that her left upper and lower extremities fell weaker than normal. She denies recent changes in vision, hearing, taste, and smell, new paresthesias, chest pain, SOB, abd pain, nausea, vomiting, diarrhea, dysuria, melena, bloody BM, and recent trauma. When asked about medications she states that she knows her medications but her caregiver from [employer], Constance Amato ([phone]), assists her with her medications as well. She denies suicidal or homicidal ideations when asked. I also asked her if she purposely or accidentally took too much medication recently and she denies this. She states that she took her am Seroquel and Clozapine as prescribed. She is a full code. I spoke with Farrah again regarding thoughts of wanting to harm herself or others. She again denies suicidal and homicidal ideations. I asked again if she took extra medication last night or this am and she states "not that I am aware of but I am not totally sure". Per chart review, the patient was recently admitted to the [facility] Behavioral/Psychiatric unit from 02/14-02/25 for suicidal ideations and medication non-compliance. Per the H&P, "There are ongoing concerns about medication non compliance after which she quickly becomes hypersomnolent and anhedonic". She underwent group therapy and her home medications were restarted with improvement in symptoms to the point that she was safe for DC home on 02/25. Please refer to Dr. Henry's attestation for any changes to the treatment plan Principal Diagnosis Vertigo most likely benign positional vertigo responded well to meclizine Discharge Exam General-alert and oriented x3, no fevers, no chills HEENT-head atraumatic and normocephalic, pupils equal and reactive to light, extraocular muscles intact Neck-no lymphadenopathy or thyromegaly, trachea midline Chest-clear to auscultation percussion. No rales wheezing or rhonchi Cardiac-regular rate and rhythm, normal S1 and S2 Abdomen-normal bowel sounds, nontender, no hepatosplenomegaly Extremities-no cyanosis, clubbing, or edema Neuro-cranial nerves II through XII intact, motor and sensory function within normal limits, strength symmetrical , no focal deficits. Nystagmus noted with right lateral gaze Psych-normal affect, normal mood Discharge Data Allergies Allergy/AdvReac Type Severity Reaction Status Date / Time lithium Allergy Unknown Unknown Verified 03/10/23 14:50 escitalopram AdvReac Severe MANIC Verified 03/10/23 14:50 haloperidol AdvReac Intermediate dystonia Verified 03/10/23 14:50 Penicillins AdvReac Intermediate GI UPSET Verified 03/10/23 14:50 valproic acid AdvReac Intermediate leg Verified 03/10/23 14:50 swelling Consultations 03/10/23 13:36 ED Decision to Admit Stat Ordered Studies 03/10/23 11:17 CT angio head w con Stat CT angio neck with con Stat CT head/brain wo con Stat 03/10/23 14:41 MR brain wo con Stat Hospital Course (1) Stroke-like symptoms: She appears to have benign positional vertigo. Brain MRI scan negative for CVA. She has no focal findings. She is now on scheduled doses of meclizine along with several doses of Solu-Medrol. Supportive care. OT and PT ass (2) Dizziness: Appears to be due to benign positional vertigo. She states she takes meclizine at home on a as needed basis. Brain MRI scan negative for CVA. She is now on scheduled meclizine dosing along with several doses of parenteral methylprednisolone switched to as needed meclizine (3) Schizoaffective disorder: Stable. Supportive care. Continue current medical management (4) 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: Metformin is on hold. ADA diet. Sliding scale coverage. (5) Hypothyroidism: Stable. Continue replacement therapy with levothyroxine (6) Hypertension: Stable. Continue current medical management Plan To be determined by OT and PT results and patient clinical course Total Time Total Time Spent Total Time Spent (In Minutes): 45 min Discharge Plan Discharge Items Patient Disposition: Home - Self-Care Reason For Visit: DIZZINESS, STROKE LIKE SYMPTOMS Discharge Diagnosis: benign positional vertigo Bathing: No limitations Sexual Activity: When tolerated Driving/Machine Use: No limitations Weightbearing: Full weightbearing Non-emergency contact: Primary Care Provider Call non-emergency contact if: you have any medication questions and your symptoms worsen Follow-up/Referrals: Vandana Montgomery MD [Primary Care Provider] - Diet: Low Sodium (2gm) Addtl Attending Provider Instructions: please follow with your primary care doctor in 2 weeks Pending Studies at Discharge: No Stand-Alone Forms: [facility] [employer], Smoking Cessation Medications and DC Order Prescriptions: Continued aspirin [Enteric Coated Aspirin] 81 mg tablet,delayed release (DR/EC) 81 mg PO QAM Qty: 90 3RF metformin 500 mg tablet extended release 24 hr 1,000 mg PO QAM Qty: 180 3RF cholecalciferol (vitamin D3) 25 mcg (1,000 unit) tablet 25 mcg PO BID Qty: 180 3RF omeprazole 20 mg capsule,delayed release(DR/EC) 40 mg PO QAM 90 Days Qty: 180 2RF levothyroxine 175 mcg tablet 175 mcg PO DAILY 90 Days Qty: 90 3RF lamotrigine 200 mg tablet 200 mg PO BID acetaminophen [Tylenol Extra Strength] 500 mg tablet 1,000 mg PO TID PRN (Reason: Mild Pain (Scale Score 1-4)) quetiapine [Seroquel] 300 mg tablet 300 mg PO HS clozapine 50 mg tablet 50 mg PO BID Qty: 14 0RF Rx Instructions: TOTAL DOSE 150 MG QAM, THEN 350 MG AT HS. meclizine 25 mg tablet 25 mg PO DAILY PRN (Reason: dizziness) 30 Days Qty: 30 2RF clozapine 100 mg Tablet 300 mg PO HS Rx Instructions: TOTAL DOSE 350 MG--TAKES WITH 50 MG TAB. clozapine 100 mg tablet 100 mg PO QAM Qty: 7 0RF Rx Instructions: TOTAL DOSE 150 MG--TAKES WITH 50 MG TAB. lidocaine 5 % Adhesive Patch,Medicated 1 patch transdermal DAILY@1700 Qty: 15 0RF polyethylene glycol 3350 [Miralax] 17 gram/dose powder 17 g PO DAILY PRN (Reason: constipation) Qty: 119 0RF gabapentin 300 mg capsule 300 mg PO HS nystatin 100,000 unit/gram powder 1 applic topical BID PRN (Reason: Rash) Discharge Orders: Discharge Order (Routine); Ordered 03/13/23 Ordered By: Tae Arechiga Admission Data Admit Date/Time: 03/10/23 14:41 Attending Provider: Tae Arechiga Admit Provider: David Henry Primary Care Provider: Vandana Montgomery Other Providers: David Henry; [facility]; [facility] Other Interventions: Discharge Summary Assessment (RN) Last Done: 03/13/23 16:18 Coding Level of Care Code 94934 INP/OBS DISCH >30 MIN Diagnoses Stroke-like symptoms R29.90 Dizziness R42 Schizoaffective disorder, bipolar type F25.0 Schizoaffective disorder type: bipolar 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 E11.319 Hypothyroidism E03.9 Hypertension I10
[2023-03-14 03:27] LABS: Lamictal(Lamotrigine) 14.7 mcg/mL (2.5-15.0)
== END 2023-03-13 17:57 | disposition home or self-care (01) ==
LOC: ED 11:07 → EDINP 11:07 → SUATTDRO 14:41 → 2N 17:35 → 2S 23:27

== ENCOUNTER 2024-02-20 08:05 | Inpatient (IN) ==
--- NOTE | 2024-02-20 08:15 | Emergency Department Note ---
Impression & Plan AMS (altered mental status), Anemia, Weakness ED Provider Note NAME: PAMELA HERRERA AGE: 63 SEX: F : 1960 ARRIVES VIA: Ambulance INFORMANT: Patient ED PROVIDER(S): Héctor Alves DO CHIEF COMPLAINT: Dizzy, fall HPI: Patient is a 63-year-old female with a past medical history of schizoaffective disorder, hypertension, diabetes, hyperlipidemia who presents to the ER for dizziness. She notes she woke up with it this morning. She went to bed normally last night. She notes she has been getting dizzy for the past week. She does have a history of dizziness. She notes that it is generally worse in the morning. This morning she lost her balance and fell. She admits to lower back pain. She does have head and neck pain. No chest pain or shortness of breath. No nausea, vomiting, or diarrhea. No weakness or numbness in the arms or legs. No other exacerbating or remitting factors. ADDITIONAL HISTORY OBTAINED: Per HPI Chronic Medical/Social Conditions Affecting Care: Per HPI PAST MEDICAL HISTORY:See Below PAST SURGICAL HISTORY:See Below FAMILY HISTORY:See Below SOCIAL HISTORY:See Below HOME MEDICATIONS:See Below ALLERGIES:See Below VITALS:See Below PHYSICAL EXAMINATION: GENERAL: Sitting up in bed, alert, well appearing, well nourished, no distress, non-toxic EYE EXAM: normal conjunctiva. PERRL and EOM's intact. OROPHARYNX: no exudate, no erythema, lips, buccal mucosa, and tongue normal and mucous membranes are moist NECK: supple, no nuchal rigidity, no adenopathy, non-tender LUNGS: Clear to auscultation. Normal chest wall mechanics HEART: no murmurs, S1 normal and S2 normal ABDOMEN: abdomen soft, non-tender, normo-active bowel sounds, no masses, no rebound or guarding. BACK: Back is symmetrical on inspection and there is no deformity, no midline tenderness, no CVA tenderness. SKIN: no rashes and no bruising UPPER EXTREMITIES: upper extremities are grossly normal. LOWER EXTREMITIES: No pitting edema. NEURO EXAM: Oriented to person and place but not year, cranial nerves II-XII intact, normal speech, no weakness of arms, no weakness of legs. No drift. Finger to nose intact. Gross sensation intact. MEDICAL DECISION MAKING: Patient is a 63-year-old female who presents to the ER for the above-stated complaint. IV was established and blood work was obtained. Upon presentation she was found to be confused. Labs show no significant leukocytosis and a mild anemia 10.4. BMP along LFTs bilirubin is unremarkable. Troponins were negative x 2. Lipase was normal. UA was clean. CT of the head cervical spine and lumbar spine showed no acute fractures. Patient was given Toradol Antivert and fluids. With the confusion she was discussed with the hospitalist for further evaluation management treatment. Consults/Care Managements Discussions: Per [facility] Triage Nursing notes reviewed. Limited review of prior medical records performed Vital Signs: reviewed and remarkable for no significant abnormalities Differential diagnosis: Differential diagnosis includes etiologies such as benign positional vertigo, dehydration, hypovolemia, anemia, tumor, infection, hypoglycemia, electrolyte abnormalities, cardiac sources, intracerebral event, toxicologic, neurological, as well as others were entertained. ER treatment provided: See below Diagnostics interpreted by me include EKG and cardiac monitoring as listed below: -Cardiac Monitoring: An order was placed for continuous cardiac monitoring. The monitor shows a rate of 80 with sinus rhythm. -ECG: Sinus rhythm rate 81 Normal axis No PVCs QTc 453 -Laboratory studies:Interpreted by me as stated above in MDM and shown below. Imaging studies: Xrays: As interpreted by me: Portable AP upright 1 view of the chest shows no focal infiltrate CTs show: CT head cervical spine and lumbar spine shows no acute pathology Procedures: None Critical Care: None Past Med/Surg History Problem List (Updated 02/20/24 @ 13:54 by Héctor Alves DO) Weakness (Acute) AMS (altered mental status) (Acute) Calf swelling Vitamin B12 deficiency Head injury (Acute) Fall (Acute) Severe morning sleep inertia Multiple pulmonary nodules determined by computed tomography of lung Anemia (Acute) Schizoaffective disorder (Chronic) Neuropathic pain Enuresis, nocturnal only Iron deficiency anemia Osteoarthritis of right knee Drug-induced parkinsonism Vitamin D deficiency Bilateral lumbar radiculopathy (Acute) Cataract (Acute) Gait instability (Acute) Hypertension (Acute) 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 Hypothyroidism Hyperlipidemia Dizziness (Chronic) Medical History Schizoaffective disorder Multiple pulmonary nodules pt unsure Vilensky Hypothyroidism HTN (hypertension) Hyperlipidemia Drug-induced parkinsonism pt unsure - sometimes has tremors Dizziness Type 2 diabetes mellitus Cataract Bilateral Anemia Pneumonia Currently on 3x antibiotics for 10 days - Elieserky - pt denies symptoms "was just found on CT scan" Anxiety Poor historian Hx of diverticulitis of colon History of colon polyps Brain TIA unsure "2019 maybe, not sure" Depression Frequent falls most recent 01/09/24 [facility] ER Chronic back pain GERD (gastroesophageal reflux disease) Asthma inhaler prn Constipation Surgical History History of removal of cyst benign cyst removed right breast History of colonoscopy History of tooth extraction all teeth removed History of tonsillectomy and adenoidectomy Family History Grandmother (Paternal) Diabetes Grandmother (Maternal) Diabetes Mother Anemia Bipolar disorder Cardiomyopathy Coronary heart disease Father Diabetes FH: kidney cancer Other No family history of adverse response to anesthesia Parkinson disease Parkinsonian syndrome Social History Smoking Status: Never smoker Second Hand Exposure: No; Do You Dip or Chew Tobacco: No; Hx Alcohol Use: No Hx Substance Use: No Preferred Language: Barbadian Communication Ability: Effective Visual Impairment: No Limitations Hearing Ability: Normal Interior Paneler Required: No Beliefs That Will Affect Care: None marital status: Single Current Living Situation: Alone Current Living Situation Comment: Lives alone and does not want to continue to live by herself Feels Safe at Home: Yes Gender Identity: Female Assistive Devices: Denture - Upper, Glasses and Walker Allergies Allergies Allergy/AdvReac Type Severity Reaction Status Date / Time lithium Allergy Unknown Unknown Verified 02/18/24 10:15 escitalopram AdvReac Severe Manic Verified 02/18/24 10:15 haloperidol AdvReac Intermediate dystonia Verified 02/18/24 10:15 Penicillins AdvReac Intermediate Gastrointestinal Verified 02/18/24 10:15 Upset valproic acid AdvReac Intermediate Leg Verified 02/18/24 10:15 Swelling Home Meds Home Medications Medication Instructions Recorded Confirmed clozapine 100 mg tablet 300 mg PO HS 01/28/18 02/20/24 acetaminophen 500 mg tablet 1,000 mg PO TID PRN Mild Pain 01/16/23 02/20/24 (Tylenol Extra Strength) (Scale Score 1-4) lamotrigine 200 mg tablet 200 mg PO BID 02/25/23 02/20/24 (Lamictal) quetiapine 300 mg tablet (Seroquel) 300 mg PO HS 02/27/23 02/20/24 gabapentin 300 mg capsule 300 mg PO HS 01/17/24 02/20/24 (Neurontin) levothyroxine 150 mcg tablet 150 mcg PO QAM 01/17/24 02/20/24 meclizine 25 mg tablet 50 mg PO QAM dizziness 01/17/24 02/20/24 quetiapine 100 mg tablet 100 mg PO QAM 01/17/24 02/20/24 Previous Rx's Medication Instructions Recorded clozapine 100 mg tablet 100 mg PO QAM #7 tabs 10/02/19 clozapine 50 mg tablet 50 mg PO BID #14 tabs 04/23/22 polyethylene glycol 3350 17 17 g PO DAILY PRN constipation 12/20/22 gram/dose oral powder (Miralax) #119 grams aspirin 81 mg tablet,delayed 81 mg PO QAM #90 tabs 05/03/23 release (Enteric Coated Aspirin) omeprazole 20 mg capsule,delayed 40 mg (2 x 20 mg) PO QAM 90 days 07/02/23 release #180 caps rosuvastatin 20 mg tablet 20 mg PO HS #90 tabs 11/16/23 cholecalciferol (vitamin D3) 25 25 mcg PO BID 90 days #180 tabs 02/07/24 mcg (1,000 unit) tablet metformin 500 mg tablet,extended 1,000 mg (2 x 500 mg) PO QAM #180 02/10/24 release 24 hr tabs ferrous sulfate 325 mg (65 mg 325 mg PO DAILY #30 tabs 02/19/24 iron) tablet (Iron (ferrous sulfate)) Results & Data (ED) Vital Signs Vital Signs - 24 hr 02/20/24 08:18 02/20/24 08:18 02/20/24 08:23 Temperature 37.1 C Temperature Source Oral Pulse Rate 79 79 82 Pulse Rate [Left Finger] Pulse Rhythm Regular Pulse Rhythm [Left Finger] Pulse Strength Normal Pulse Strength [Left Finger] Respiratory Rate 24 20 Respiratory Effort / Characteristics Non-Labored Spontaneous Respiratory Depth Normal Respiratory Pattern Regular Blood Pressure 139/84 Blood Pressure [Right Arm] Blood Pressure Mean 102 Blood Pressure Mean [Right Arm] Blood Pressure Position Lying Blood Pressure Position [Right Arm] Pulse Oximetry 96 Oxygen Delivery Method Room Air Sepsis Recent Fever Within 48 Hours No Sepsis New/Unexplained Change in Mental Status N/A Sepsis Action Taken by Nursing No Action Required 02/20/24 08:48 02/20/24 08:57 02/20/24 09:00 Temperature Temperature Source Pulse Rate 76 76 Pulse Rate [Left Finger] 76 Pulse Rhythm Regular Pulse Rhythm [Left Finger] Regular Pulse Strength Pulse Strength [Left Finger] Normal Respiratory Rate 15 18 Respiratory Effort / Characteristics Non-Labored Respiratory Depth Normal Respiratory Pattern Blood Pressure Blood Pressure [Right Arm] 123/76 Blood Pressure Mean Blood Pressure Mean [Right Arm] 91 Blood Pressure Position Blood Pressure Position [Right Arm] Lying Pulse Oximetry 97 97 Oxygen Delivery Method Room Air Nasal Cannula Sepsis Recent Fever Within 48 Hours Sepsis New/Unexplained Change in Mental Status Sepsis Action Taken by Nursing 02/20/24 09:00 02/20/24 09:00 02/20/24 09:03 Temperature Temperature Source Pulse Rate 76 76 Pulse Rate [Left Finger] Pulse Rhythm Pulse Rhythm [Left Finger] Pulse Strength Pulse Strength [Left Finger] Respiratory Rate 16 13 Respiratory Effort / Characteristics Respiratory Depth Respiratory Pattern Blood Pressure 123/76 Blood Pressure [Right Arm] Blood Pressure Mean 81 Blood Pressure Mean [Right Arm] Blood Pressure Position Blood Pressure Position [Right Arm] Pulse Oximetry Oxygen Delivery Method Sepsis Recent Fever Within 48 Hours Sepsis New/Unexplained Change in Mental Status Sepsis Action Taken by Nursing 02/20/24 09:35 02/20/24 09:45 02/20/24 09:51 Temperature Temperature Source Pulse Rate 94 H 113 H Pulse Rate [Left Finger] Pulse Rhythm Pulse Rhythm [Left Finger] Pulse Strength Pulse Strength [Left Finger] Respiratory Rate 20 25 H Respiratory Effort / Characteristics Respiratory Depth Respiratory Pattern Blood Pressure 131/74 Blood Pressure [Right Arm] Blood Pressure Mean 90 Blood Pressure Mean [Right Arm] Blood Pressure Position Blood Pressure Position [Right Arm] Pulse Oximetry Oxygen Delivery Method Sepsis Recent Fever Within 48 Hours Sepsis New/Unexplained Change in Mental Status Sepsis Action Taken by Nursing 02/20/24 09:54 02/20/24 10:00 02/20/24 10:06 Temperature Temperature Source Pulse Rate 75 Pulse Rate [Left Finger] Pulse Rhythm Pulse Rhythm [Left Finger] Pulse Strength Pulse Strength [Left Finger] Respiratory Rate 19 20 Respiratory Effort / Characteristics Respiratory Depth Respiratory Pattern Blood Pressure 121/72 Blood Pressure [Right Arm] Blood Pressure Mean 90 Blood Pressure Mean [Right Arm] Blood Pressure Position Blood Pressure Position [Right Arm] Pulse Oximetry Oxygen Delivery Method Sepsis Recent Fever Within 48 Hours Sepsis New/Unexplained Change in Mental Status Sepsis Action Taken by Nursing Laboratory Data 02/20/24 08:20 02/20/24 08:20 Lab Results 02/20/24 02/20/24 Range/Units 08:20 09:30 WBC 5.59 (4.8-10.8) K/ul RBC 3.50 L (4.20-5.40) M/uL Hgb 10.4 L (12.0-16.0) g/dl Hct 32.9 L (37.0-47.0) % MCV 94.0 (80.0-100.0) fL MCH 29.7 (25.0-34.0) pg MCHC 31.6 L (32.0-36.0) g/dL RDW Std Deviation 49.0 H (36.4-46.3) fL RDW Coeff of Radha 14.4 (11.5-14.5) % Plt Count 234 (130-400) K/uL MPV 9.6 (9.4-12.4) fL Immature Gran % (Auto) 0.5 % Neut % (Auto) 76.3 % Lymph % (Auto) 14.3 % [place] % (Auto) 7.3 % Eos % (Auto) 1.1 % Baso % (Auto) 0.5 % Neut # (Auto) 4.26 (1.40-6.50) K/uL Lymph # (Auto) 0.80 L (1.20-3.40) K/uL [place] # (Auto) 0.41 (0.11-0.59) K/uL Eos # (Auto) 0.06 (0.00-0.50) K/uL Baso # (Auto) 0.03 (0.00-0.20) K/uL Immature Gran # (Auto) 0.03 (0.01-0.20) K/uL Sodium 140 (136-145) mmol/L Potassium 4.4 (3.5-5.1) mmol/L Chloride 106 (98-107) mmol/L Carbon Dioxide 27 (21-32) mmol/L Anion Gap 7 (3-11) BUN 25 H (6-23) mg/dl Creatinine 1.10 (0.6-1.2) mg/dl Est Cr Clr Drug Dosing 58.9 ml/min eGFR 56.46 BUN/Creatinine Ratio 22.7 H (10-20) Glucose 106 H (70-99(Fasting)) mg/dl Calcium 9.5 (8.6-10.3) mg/dl Total Bilirubin 0.3 (0.2-1.0) mg/dl AST 15 (13-39) U/L ALT 13 (7-52) U/L Alkaline Phosphatase 77 (34-104) U/L Troponin I High Sens 5.2 (0-14) pg/ml Total Protein 6.0 (6.0-8.3) gm/dl Albumin 4.1 (3.4-5.0) gm/dl Globulin 1.9 L (2.5-4.0) gm/dl Albumin/Globulin Ratio 2.2 H (0.9-2) Lipase 12 (11-82) U/L Urine Color Yellow Urine Appearance Clear (Clear) Urine pH 6.0 (4.5-7.5) Ur Specific [place] 1.010 (1.000-1.030) Urine Protein Negative (Negative) Urine Glucose (UA) Negative (Negative) Urine Ketones Negative (Negative) Urine Blood Negative (Negative) Urine Nitrite Negative (Negative) Urine Bilirubin Negative (Negative) Urine Urobilinogen Negative (Negative) Ur Leukocyte Esterase Trace H (Negative) Urine WBC (Auto) 0-5 (0-5) /hpf Urine RBC (Auto) 0-2 (0-2) /hpf U Hyaline Cast (Auto) 0-2 (0-2) /lpf U Epithel Cells (Auto) 0-2 (0-2) /hpf Urine Bacteria (Auto) None Seen (None Seen) Administered Medications Discontinued Medications Sodium Chloride (Nss) 1,000 mls @ 999 mls/hr IV .Q1H1M ONE Stop: 02/20/24 10:52 Last Infusion: 02/20/24 11:30 Dose: Infused Documented By: Admin: 02/20/24 10:26 Dose: 999 mls/hr Documented By: DELBERT Ketorolac Tromethamine (Ketorolac Tromethamine 15 Mg/Ml Vial) 10 mg IV NOW ONE Stop: 02/20/24 09:22 Last Admin: 02/20/24 10:26 Dose: 10 mg Documented By: DELBERT Meclizine HCl (Meclizine Hcl 25 Mg Tab) 25 mg PO NOW STA Stop: 02/20/24 09:53 Last Admin: 02/20/24 10:25 Dose: 25 mg Documented By: DELBERT Imaging Data Radiologist's Impression: Chest X-Ray 02/20/24 08:12 XR chest 1V portable CLINICAL HISTORY: Chest pain, nonspecific. Fall. COMPARISON STUDY: Chest CT January 01, 2024. Chest radiograph January 09, 2024. FINDINGS: Lung volumes are normal. Lungs are clear. There is no pneumothorax or pleural effusion. Cardiomegaly is unchanged. Mediastinal contours are normal. There is no evidence for pulmonary edema. IMPRESSION: No acute cardiopulmonary findings. No change in appearance of the chest. ACT 112: Negative or not required by law. Electronically signed by: Tony Hilliard M.D. 02/20/2024 8:[address] 02/20/24 08:12 CT head/brain wo con CLINICAL HISTORY: 63 years-old Female with BAEZA/dizzy. Acute headache with dizziness TECHNIQUE: Multiple axial CT images of the head were obtained without contrast. A dose lowering technique was utilized adhering to the principles of ALARA. COMPARISON: 02/11/2024 FINDINGS: No acute intracranial hemorrhage, midline shift, intracranial mass, hydrocephalus, territorial ischemia or abnormal extra-axial collection. Involutional changes with probable chronic microvascular ischemic disease. The calvarium is intact. Minimal mucosal thickening of the paranasal sinuses. The mastoid air cells are clear. Leftward bowing and spurring of the nasal septum. IMPRESSION: No acute intracranial abnormality identified. ACT 112: Negative or not required by law. The above report was generated using voice recognition software. It may contain grammatical, syntax or spelling errors. Electronically signed by: Lanre Green M.D. 02/20/2024 8:[address] 02/20/24 08:18 CT OF THE CERVICAL SPINE WITHOUT CONTRAST CLINICAL HISTORY: Fall. COMPARISON STUDY: Cervical spine CT February 11, 2024. TECHNIQUE: Helical axial images of the cervical spine were obtained without IV contrast. Sagittal and coronal reconstructions were viewed. Automated exposure control was utilized for the study. A dose lowering technique was utilized adhering to the principles of ALARA. FINDINGS: Alignment of the cervical spine is anatomic. Vertebral body heights are maintained. No acute cervical spine fracture or subluxation is present. There is no prevertebral edema. Facet joints are intact. Extensive osteophytosis of the cervical spine is noted. There is moderate multilevel disc space narrowing. IMPRESSION: No acute cervical spine fracture or subluxation. ACT 112: Negative or not required by law. Electronically signed by: Tony Hilliard M.D. 02/20/2024 8:[address] 02/20/24 08:18 CT OF THE LUMBAR SPINE CLINICAL HISTORY: Back pain following fall. COMPARISON STUDY: Lumbar spine CT January 09, 2024. TECHNIQUE: Helical axial images of the lumbar spine were obtained. Sagittal and coronal reconstructions were viewed. Automated exposure control was utilized for the study. A dose lowering technique was utilized adhering to the principles of ALARA. FINDINGS: Alignment of the lumbar spine is anatomic. There are no fractures. Vertebral body heights are maintained. There are no osseous lesions. There is mild disc space narrowing and moderate osteophytosis and facet arthrosis within the lumbar spine. The appearance of the lumbar spine is unchanged. Paravertebral soft tissues are unremarkable. IMPRESSION: No acute lumbar spine fracture or subluxation. ACT 112: Negative or not required by law. Electronically signed by: Tony Hilliard M.D. 02/20/2024 8:57 AM Discharge Plan Visit Data Chief Complaint: Fall Stated Complaint: FALL, BACK & NECK PAIN ED Provider: Héctor Alves Discharge Problem: AMS (altered mental status), Anemia, Weakness Patient Disposition: Admitted As Inpatient Discharge Instructions Interventions: ED Discharge Assessment Last Done: 02/20/24 13:40 Discharge Problem: AMS (altered mental status) Qualifiers: Altered mental status type: unspecified Qualified Code(s): R41.82 - Altered mental status, unspecified Anemia Qualifiers: Anemia type: unspecified type Qualified Code(s): D64.9 - Anemia, unspecified
[2024-02-20 08:53] LABS: Basophils # (auto) 0.03 K/uL (0.00-0.20); Basophils % (auto) 0.5 %; Eosinophils # (auto) 0.06 K/uL (0.00-0.50); Eosinophils % (auto) 1.1 %; Hematocrit (blood only) 32.9 % (37.0-47.0); Hemoglobin 10.4 g/dl (12.0-16.0); Immature Granulocytes # (auto) 0.03 K/uL (0.01-0.20); Immature Granulocytes % (auto) 0.5 %; Lymphocytes % (auto) 14.3 %; Mean Corpuscular Hemoglobin 29.7 pg (25.0-34.0); Mean Corpuscular Hgb Conc 31.6 g/dL (32.0-36.0); Mean Platelet Volume 9.6 fL (9.4-12.4); Monocytes # (auto) 0.41 K/uL (0.11-0.59); Monocytes % (auto) 7.3 %; Neutrophils # (auto) 4.26 K/uL (1.40-6.50); Neutrophils % (auto) 76.3 %; Platelet Count 234 K/uL (130-400); RDW Coefficient of Variation 14.4 % (11.5-14.5); White Blood Count 5.59 K/ul (4.8-10.8)
--- NOTE | 2024-02-20 08:54 | CT Scan Report ---
CT OF THE CERVICAL SPINE WITHOUT CONTRAST CLINICAL HISTORY: Fall. COMPARISON STUDY: Cervical spine CT February 11, 2024. TECHNIQUE: Helical axial images of the cervical spine were obtained without IV contrast. Sagittal a nd coronal reconstructions were viewed. Automated exposure control was utilized for the study. A do se lowering technique was utilized adhering to the principles of ALARA. FINDINGS: Alignment of the cervical spine is anatomic. Vertebral body heights are maintained. No acut e cervical spine fracture or subluxation is present. There is no prevertebral edema. Facet joints are intact. Extensive osteophytosis of the cervical spine is noted. There is moderate multilevel disc s pace narrowing. IMPRESSION: No acute cervical spine fracture or subluxation. ACT 112: Negative or not required by law. Electronically signed by: Tony Hilliard M.D. 02/20/2024 8:52 AM
--- NOTE | 2024-02-20 08:55 | XRay Report ---
XR chest 1V portable CLINICAL HISTORY: Chest pain, nonspecific. Fall. COMPARISON STUDY: Chest CT January 01, 2024. Chest radiograph January 09, 2024. FINDINGS: Lung volumes are normal. Lungs are clear. There is no pneumothorax or pleural effusion. Car diomegaly is unchanged. Mediastinal contours are normal. There is no evidence for pulmonary edema. IMPRESSION: No acute cardiopulmonary findings. No change in appearance of the chest. ACT 112: Negative or not required by law. Electronically signed by: Tony Hilliard M.D. 02/20/2024 8:54 AM
--- NOTE | 2024-02-20 08:57 | CT Scan Report ---
CT head/brain wo con CLINICAL HISTORY: 63 years-old Female with BAEZA/dizzy. Acute headache with dizziness TECHNIQUE: Multiple axial CT images of the head were obtained without contrast. A dose lowering tech nique was utilized adhering to the principles of ALARA. COMPARISON: 02/11/2024 FINDINGS: No acute intracranial hemorrhage, midline shift, intracranial mass, hydrocephalus, territorial ischem ia or abnormal extra-axial collection. Involutional changes with probable chronic microvascular ische kacie disease. The calvarium is intact. Minimal mucosal thickening of the paranasal sinuses. The mastoid air cells are clear. Leftward bowing and spurring of the nasal septum. IMPRESSION: No acute intracranial abnormality identified. ACT 112: Negative or not required by law. The above report was generated using voice recognition software. It may contain grammatical, syntax o r spelling errors. Electronically signed by: Lanre Green M.D. 02/20/2024 8:55 AM
--- NOTE | 2024-02-20 08:58 | CT Scan Report ---
CT OF THE LUMBAR SPINE CLINICAL HISTORY: Back pain following fall. COMPARISON STUDY: Lumbar spine CT January 09, 2024. TECHNIQUE: Helical axial images of the lumbar spine were obtained. Sagittal and coronal reconstruct ions were viewed. Automated exposure control was utilized for the study. A dose lowering technique was utilized adhering to the principles of ALARA. FINDINGS: Alignment of the lumbar spine is anatomic. There are no fractures. Vertebral body heights a re maintained. There are no osseous lesions. There is mild disc space narrowing and moderate osteophy tosis and facet arthrosis within the lumbar spine. The appearance of the lumbar spine is unchanged. P aravertebral soft tissues are unremarkable. IMPRESSION: No acute lumbar spine fracture or subluxation. ACT 112: Negative or not required by law. Electronically signed by: Tony Hilliard M.D. 02/20/2024 8:57 AM
[2024-02-20 09:03] LABS: Albumin Globulin Ratio 2.2 (0.9-2); Albumin Level 4.1 gm/dl (3.4-5.0); BUN Creatinine Ratio 22.7 (10-20); Bilirubin,Total 0.3 mg/dl (0.2-1.0); Calcium 9.5 mg/dl (8.6-10.3); Creatinine Clr Calc Pharmacy 58.9 ml/min; Globulin 1.9 gm/dl (2.5-4.0); Potassium 4.4 mmol/L (3.5-5.1)
[2024-02-20 09:09] LABS: Troponin I High Sensitivity 5.2 pg/ml (0-14)
[2024-02-20] MEDS: MECLIZINE HCL 25 MG TAB PO STA (10:25)
[2024-02-20] MEDS: KETOROLAC TROMETHAMINE 15 MG/ML VIAL IV ONE (10:26)
[2024-02-20] MEDS: SODIUM CHLORIDE 0.9% 1,000 ML IV ONE (10:26)
--- NOTE | 2024-02-20 10:27 | History & Physical Report ---
Date of Service February 20, 2024 Assessment & Plan (1) Dizziness: Plan: H/o of near-syncopal event 02/19- was walking for exercise and "crumbled" to the ground. No symptoms prior to the event to include chest pain/headache/dizziness, no loss of consciousness; witnessed by "friends" - Admit - Prior admission 03/10/2024- for strokelike symptoms as well as dizziness; diagnosed with benign positional vertigo and discharged on as needed meclizine - Reported h/o TIA 2018; no neurodeficits on exam - States she takes meclizine 50 mg twice daily on a continuous basis-> hold for now as continuous dose may be contributing to continuation of symptoms - CBC H&H 10.4/32.9, CMP BUN 25, ratio 22.7, troponin pending - Symptoms of dysuria for unknown amount of time- UA pending - EKG appearing normal sinus, rate around 80 - EKG as needed if chest pain- no complaints of chest pain/chest pressure at this time - CXR, CTAP, CTA chest, head CT without acute findings - Echo most recently obtained 03/11/2023- LV systolic function normal, EF 55 to 60%, no interatrial shunt (11/04/2016), mild concentric LVH - Most recent TSH (02/17) at 2.475 - Orthostatic vitals in a.m. (2) Calf swelling: Plan: Left calf size discrepancy compared to right calf - ASA 81 mg daily - Slight tenderness to palpation on exam; without erythema - Venous Doppler ultrasound LLE pending (3) Schizoaffective disorder: Plan: Per history - Clozapine 300 mg nightly, 100 mg every morning, 50 mg twice daily - Lamotrigine 200 mg p.o. twice daily - Quetiapine 100 mg p.o. every morning, quetiapine 300 mg p.o. nightly (4) 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: Plan: Most recent A1C (12/04) at 6.3% - SSI with target BSG range 110-140mg/dL, CF 30, carb ratio 15 - On metformin 1000 mg daily; hold - T2DM diet - BSG ACHS - Adjust regimen as needed (5) Hypothyroidism: Plan: Per history - TSH (02/17) 2.475 - Levothyroxine 150 mcg every morning Plan HLD- simvastatin 20 mg p.o. nightly Neuropathic pain- gabapentin 300 mg p.o. nightly Chronic ROCIO- H&H on admission 10.4/32.9 (baseline hemoglobin 9-10, HCT 30-34%), takes ferrous sulfate 325 mg daily- CBC a.m. Vit D deficiency- vitamin D3 25 mcg p.o. twice daily GERD- omeprazole 40 mg p.o. every morning Dispo: Admit VTE prophylaxis: SCDs if US OK Code: Full Admission and Anticipated Discharge Date Admission Date: 02/20/2024 History of Present Illness Chief Complaint: Dizziness Primary Care Provider: Hillary Clarke MD 63-year-old female presenting for recent fall and associated chronic dizziness. ED course: CBC- H&H 10.4/32.9, MCHC 31.6, RDW 49; CMP-BUN 25, BUN/creatinine ratio 20.7, glucose 106, globulin 1.9; pending UA; calcium 9.5.; CXR without acute cardiopulmonary findings, no change in appearance of the chest; head CT, cervical spine CT, lumbar spine CT without acute intracranial abnormality, without acute spine fracture or subluxation, without acute lumbar spine fracture or subluxation.; EKG appearing normal sinus rate around 80. Provided with 1 L NSS, meclizine 25 mg, ketorolac 10 mg in ED. Evaluated in ED 02/10- s/p fall with head and neck discomfort; elevated white count, anemic, CT was WNL, troponin negative. Was ultimately discharged from ED to follow-up with PCP. Patient is a 63-year-old female with PMHx schizoaffective disorder, T2DM, hypothyroidism, HLD, vitamin D and vitamin B12 deficiency, and chronic dizziness presenting for recent fall. Patient states that earlier today she was walking for exercise and noted that she just ended up on the ground. States that friends witnessed this, but she did not lose consciousness. States that this has been an ongoing problem, occurring last week where she was evaluated in the ED for similar symptoms. States that she might of hit her head but is unsure. Did not have any symptoms prior to the fall, just felt that she crumpled to the ground. No chest pain, shortness of breath, tinnitus. Unable to describe the dizziness that she experiences. Does take meclizine twice a day on a regular basis. Has also been experiencing dysuria for an unknown amount of time. Denying fever/chills, abdominal pain, N/B/D/C, numbness/tingling, or additional LUTS. Prior history of strokes, states this does not feel the same. States residual symptoms of stroke is minimal right-sided facial droop. Please see Dr. Henry's attestation for adjustments/additions to treatment plan. Allergies Allergy/AdvReac Type Severity Reaction Status Date / Time lithium Allergy Unknown Unknown Verified 02/18/24 10:15 escitalopram AdvReac Severe Manic Verified 02/18/24 10:15 haloperidol AdvReac Intermediate dystonia Verified 02/18/24 10:15 Penicillins AdvReac Intermediate Gastrointestinal Verified 02/18/24 10:15 Upset valproic acid AdvReac Intermediate Leg Verified 02/18/24 10:15 Swelling Home Medications Medication Instructions Recorded Confirmed Type clozapine 100 mg tablet 300 mg PO HS 01/28/18 02/20/24 History clozapine 100 mg tablet 100 mg PO QAM #7 tabs 10/02/19 02/20/24 Rx clozapine 50 mg tablet 50 mg PO BID #14 tabs 04/23/22 02/20/24 Rx polyethylene glycol 3350 17 17 g PO DAILY PRN constipation 12/20/22 02/20/24 Rx gram/dose oral powder (Miralax) #119 grams acetaminophen 500 mg tablet 1,000 mg PO TID PRN Mild Pain 01/16/23 02/20/24 History (Tylenol Extra Strength) (Scale Score 1-4) lamotrigine 200 mg tablet 200 mg PO BID 02/25/23 02/20/24 History (Lamictal) quetiapine 300 mg tablet (Seroquel) 300 mg PO HS 02/27/23 02/20/24 History aspirin 81 mg tablet,delayed 81 mg PO QAM #90 tabs 05/03/23 02/20/24 Rx release (Enteric Coated Aspirin) omeprazole 20 mg capsule,delayed 40 mg (2 x 20 mg) PO QAM 90 days 07/02/23 02/20/24 Rx release #180 caps rosuvastatin 20 mg tablet 20 mg PO HS #90 tabs 11/16/23 02/20/24 Rx gabapentin 300 mg capsule 300 mg PO HS 01/17/24 02/20/24 History (Neurontin) levothyroxine 150 mcg tablet 150 mcg PO QAM 01/17/24 02/20/24 History meclizine 25 mg tablet 50 mg PO QAM dizziness 01/17/24 02/20/24 History quetiapine 100 mg tablet 100 mg PO QAM 01/17/24 02/20/24 History cholecalciferol (vitamin D3) 25 25 mcg PO BID 90 days #180 tabs 02/07/24 02/20/24 Rx mcg (1,000 unit) tablet metformin 500 mg tablet,extended 1,000 mg (2 x 500 mg) PO QAM #180 02/10/24 02/20/24 Rx release 24 hr tabs ferrous sulfate 325 mg (65 mg 325 mg PO DAILY #30 tabs 02/19/24 02/20/24 Rx iron) tablet (Iron (ferrous sulfate)) Past Med/Surg History Problem List (Updated 02/20/24 @ 13:54 by Héctor Alves DO) Weakness (Acute) AMS (altered mental status) (Acute) Calf swelling Vitamin B12 deficiency Head injury (Acute) Fall (Acute) Severe morning sleep inertia Multiple pulmonary nodules determined by computed tomography of lung Anemia (Acute) Schizoaffective disorder (Chronic) Neuropathic pain Enuresis, nocturnal only Iron deficiency anemia Osteoarthritis of right knee Drug-induced parkinsonism Vitamin D deficiency Bilateral lumbar radiculopathy (Acute) Cataract (Acute) Gait instability (Acute) Hypertension (Acute) 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 Hypothyroidism Hyperlipidemia Dizziness (Chronic) Medical History Schizoaffective disorder Multiple pulmonary nodules pt unsure Vil[place]ky Hypothyroidism HTN (hypertension) Hyperlipidemia Drug-induced parkinsonism pt unsure - sometimes has tremors Dizziness Type 2 diabetes mellitus Cataract Bilateral Anemia Pneumonia Currently on 3x antibiotics for 10 days - Thee - pt denies symptoms "was just found on CT scan" Anxiety Poor historian Hx of diverticulitis of colon History of colon polyps Brain TIA unsure "2019 maybe, not sure" Depression Frequent falls most recent 01/09/24 [facility] Chronic back pain GERD (gastroesophageal reflux disease) Asthma inhaler prn Constipation Surgical History History of removal of cyst benign cyst removed right breast History of colonoscopy History of tooth extraction all teeth removed History of tonsillectomy and adenoidectomy Family History Grandmother (Paternal) Diabetes Grandmother (Maternal) Diabetes Mother Anemia Bipolar disorder Cardiomyopathy Coronary heart disease Father Diabetes FH: kidney cancer Other No family history of adverse response to anesthesia Parkinson disease Parkinsonian syndrome Social History Smoking Status: Never smoker Second Hand Exposure: No; Do You Dip or Chew Tobacco: No; Hx Alcohol Use: No Hx Substance Use: No Preferred Language: Grenadian Communication Ability: Effective Visual Impairment: No Limitations Hearing Ability: Normal Field Aide Required: No Beliefs That Will Affect Care: None marital status: Single Current Living Situation: Alone Current Living Situation Comment: Lives alone and does not want to continue to live by herself Feels Safe at Home: Yes Gender Identity: Female Assistive Devices: Denture - Upper, Glasses and Walker Review of Systems Review of Systems: All systems reviewed & are unremarkable except as noted in Subjective Physical Exam Physical Exam: General: No acute distress Skin: Warm and dry Head: Normocephalic, atraumatic Eyes: PERRL, conjunctivae clear, sclera non-icteric; right eye deviates ENT: External ear without swelling; nose atraumatic; residual right-sided facial droop secondary to prior stroke, patient states this is at baseline Neck: Supple, no LAD Cardio: RRR, no M/G/R, S1 and S2 normal Resp: Unable to sit herself up; normal respiratory effort; No respiratory distress; auscultated lungs via anterior chest- CTA in all lobes bilaterally, no wheezes, rales, or rhonchi Abdomen: Soft, symmetric, normal tenderness to palpation epigastric area; no distention; No masses or hepatosplenomegaly MSK: Full ROM throughout; sensation normal to UE/LE; pulses palpable and equal; calf size discrepancy with left > right; no erythema bilaterally; trace pitting edema bilaterally, at patient's baseline Neuro: Awake, alert; Muscle strength 4/5 bilaterally in UE/LE; Sensation intact bilaterally; CN intact Psych: Tearful stating she is sometimes "fearful" Results & Data Results & Data Vital Signs (Past 12 Hours) Vital Signs Temp Pulse Pulse Resp BP BP Pulse Ox 02/20/24 09:00 76 18 123/76 97 02/20/24 08:48 76 97 02/20/24 08:23 37.1 C 82 20 139/84 96 02/20/24 08:18 79 O2 Del Method 02/20/24 09:00 Nasal Cannula 02/20/24 08:48 Room Air 02/20/24 08:23 Room Air 02/20/24 08:18 Laboratory Results 02/20/24 08:20 WBC 5.59 RBC 3.50 L Hgb 10.4 L Hct 32.9 L MCV 94.0 MCH 29.7 MCHC 31.6 L RDW Std Deviation 49.0 H RDW Coeff of Radha 14.4 Plt Count 234 MPV 9.6 Immature Gran % (Auto) 0.5 Neut % (Auto) 76.3 Lymph % (Auto) 14.3 [place] % (Auto) 7.3 Eos % (Auto) 1.1 Baso % (Auto) 0.5 Neut # (Auto) 4.26 Lymph # (Auto) 0.80 L [place] # (Auto) 0.41 Eos # (Auto) 0.06 Baso # (Auto) 0.03 Immature Gran # (Auto) 0.03 Sodium 140 Potassium 4.4 Chloride 106 Carbon Dioxide 27 Anion Gap 7 BUN 25 H Creatinine 1.10 Est Cr Clr Drug Dosing 58.9 eGFR 56.46 BUN/Creatinine Ratio 22.7 H Glucose 106 H Calcium 9.5 Total Bilirubin 0.3 AST 15 ALT 13 Alkaline Phosphatase 77 Troponin I High Sens 5.2 Total Protein 6.0 Albumin 4.1 Globulin 1.9 L Albumin/Globulin Ratio 2.2 H Lipase 12 Diagnostic Findings Chest X-Ray 02/20/24 08:12 XR chest 1V portable CLINICAL HISTORY: Chest pain, nonspecific. Fall. COMPARISON STUDY: Chest CT January 01, 2024. Chest radiograph January 09, 2024. FINDINGS: Lung volumes are normal. Lungs are clear. There is no pneumothorax or pleural effusion. Cardiomegaly is unchanged. Mediastinal contours are normal. There is no evidence for pulmonary edema. IMPRESSION: No acute cardiopulmonary findings. No change in appearance of the chest. ACT 112: Negative or not required by law. Electronically signed by: Tony Hilliard M.D. 02/20/2024 8:[address] 02/20/24 08:12 CT head/brain wo con CLINICAL HISTORY: 63 years-old Female with BAEZA/dizzy. Acute headache with dizziness TECHNIQUE: Multiple axial CT images of the head were obtained without contrast. A dose lowering technique was utilized adhering to the principles of ALARA. COMPARISON: 02/11/2024 FINDINGS: No acute intracranial hemorrhage, midline shift, intracranial mass, hydrocephalus, territorial ischemia or abnormal extra-axial collection. Involutional changes with probable chronic microvascular ischemic disease. The calvarium is intact. Minimal mucosal thickening of the paranasal sinuses. The mastoid air cells are clear. Leftward bowing and spurring of the nasal septum. IMPRESSION: No acute intracranial abnormality identified. ACT 112: Negative or not required by law. The above report was generated using voice recognition software. It may contain grammatical, syntax or spelling errors. Electronically signed by: Lanre Green M.D. 02/20/2024 8:[address] 02/20/24 08:18 CT OF THE CERVICAL SPINE WITHOUT CONTRAST CLINICAL HISTORY: Fall. COMPARISON STUDY: Cervical spine CT February 11, 2024. TECHNIQUE: Helical axial images of the cervical spine were obtained without IV contrast. Sagittal and coronal reconstructions were viewed. Automated exposure control was utilized for the study. A dose lowering technique was utilized adhering to the principles of ALARA. FINDINGS: Alignment of the cervical spine is anatomic. Vertebral body heights are maintained. No acute cervical spine fracture or subluxation is present. There is no prevertebral edema. Facet joints are intact. Extensive osteophytosis of the cervical spine is noted. There is moderate multilevel disc space narrowing. IMPRESSION: No acute cervical spine fracture or subluxation. ACT 112: Negative or not required by law. Electronically signed by: Tony Hilliard M.D. 02/20/2024 8:[address] 02/20/24 08:18 CT OF THE LUMBAR SPINE CLINICAL HISTORY: Back pain following fall. COMPARISON STUDY: Lumbar spine CT January 09, 2024. TECHNIQUE: Helical axial images of the lumbar spine were obtained. Sagittal and coronal reconstructions were viewed. Automated exposure control was utilized for the study. A dose lowering technique was utilized adhering to the principles of ALARA. FINDINGS: Alignment of the lumbar spine is anatomic. There are no fractures. Vertebral body heights are maintained. There are no osseous lesions. There is mild disc space narrowing and moderate osteophytosis and facet arthrosis within the lumbar spine. The appearance of the lumbar spine is unchanged. Paravertebral soft tissues are unremarkable. IMPRESSION: No acute lumbar spine fracture or subluxation. ACT 112: Negative or not required by law. Electronically signed by: Tony Hilliard M.D. 02/20/2024 8:57 AM ECG Additional Comments: Normal sinus, rate around 80s Code Status & VTE Plan Code Status Full VTE Prophylaxis Plan VTE Prophylaxis will be ordered: Yes Supervising Physician Co-Signing Physician Notes I personally saw and examined the patient. I independently reviewed the labs, EKG, imaging, problem list, medication list, past medical history and family history. I verified all stacy points and agree with Lenora Moffett PA-C with the following exceptions and/or additions: 63 year old female presents to the ER with acute on chronic dizziness. Ended up on the ground but no loss of consciousness. No injuries from fall. Ongoing dizziness worse on standing up but also on turning her head. O/E HS RRR, no murmurs, Chest CTAB, Abdo SNT, CN 2-> intact, no pronator drift, no extremity weakness A/P Dizziness - acute on chronic, unclear cause as she finds it difficult to describe - neither room spinning or presyncope. Recommend stopping meclizine as likely making worse and no clear vertiginous aspect. PT/OT PG Care Time/CCT Total # of Minutes Spent Total Time Spent with Patient: Total time spent is greater than 50% in coordination of care (as documented) at patient's floor/unit and/or counseling patient: Coding Level of Care Code 80822 INT INP/OBS CARE 2/55MIN Diagnoses Dizziness R42 Calf swelling M79.89 Schizoaffective disorder, bipolar type F25.0 Schizoaffective disorder type: bipolar 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 E11.319 Hypothyroidism E03.9 Time Spent (min) 60 (3) Schizoaffective disorder Schizoaffective disorder type: bipolar Qualified Code(s): F25.0 - Schizoaffective disorder, bipolar type
[2024-02-20 10:41] LABS: Appearance Urine Clear (Clear); Bacteria Urine Automated None Seen (None Seen); Bilirubin Urine Negative (Negative); Blood Urine Negative (Negative); Cast Urine Automated 0-2 /lpf (0-2); Color Urine Yellow; Epithelial Cell Urine Auto 0-2 /hpf (0-2); Glucose Urine UA Negative (Negative); Ketones Urine Negative (Negative); Leukocyte Esterase Urine Trace (Negative); Nitrite Urine Negative (Negative); Protein Urine Negative (Negative); RBC Urine Automated 0-2 /hpf (0-2); Urobilinogen Urine Negative (Negative); WBC Urine Automated 0-5 /hpf (0-5)
--- NOTE | 2024-02-20 11:26 | Ultrasound Report ---
LEFT LOWER EXTREMITY VENOUS DOPPLER HISTORY: Acute pain as well as left lower leg Calf size disc., L calf pain COMPARISON STUDY: None. FINDINGS: There is normal compressibility, flow, and augmentation within the left lower extremity osito p venous system. IMPRESSION: No DVT within the left lower extremity. ACT 112: Negative or not required by law. Electronically signed by: Lanre Green M.D. 02/20/2024 11:25 AM
--- NOTE | 2024-02-20 13:08 | XCELERA ---
[id number]
[2024-02-20] MEDS ORDERED: GLUCAGON FOR INJ 1 MG VIAL SQ PRN (13:13)
[2024-02-20] MEDS ORDERED: DEXTROSE 50% 50 ML SYRINGE IV PRN (13:13)
[2024-02-20] MEDS ORDERED: GLUCOSE 10 TAB/TUBE PO PRN (13:13)
[2024-02-20] MEDS ORDERED: CARBOHYDRATES FOR HYPOGLYCEMIA PO PRN (13:13)
[2024-02-20] MEDS: INSULIN ASPART PER UNIT CHARGE SC SCH (15:36)
--- NOTE | 2024-02-20 16:13 | Electrocardiogram Report ---
Test Reason : Blood Pressure : */* mmHG Vent. Rate : 81 BPM Atrial Rate : 81 BPM P-R Int : 170 ms QRS Dur : 98 ms QT Int : 390 ms P-R-T Axes : 39 -8 26 degrees QTcB Int : 453 ms Normal sinus rhythm Low voltage QRS Borderline ECG When compared with ECG of 09-Jan-2024 09:40, No significant change was found Confirmed by Darío Fernandez ([id number]) on 02/20/2024 4:13:23 PM Referred By: REFERRED SELF Confirmed By: Darío Fernandez
[2024-02-20] MEDS: ACETAMINOPHEN 325 MG TAB PO PRN (17:33)
[2024-02-20] MEDS: ROSUVASTATIN CALCIUM 20 MG TAB PO SCH (22:37)
[2024-02-20] MEDS: QUEtiapine FUMARATE 300 MG TABLET PO SCH (22:37)
[2024-02-20] MEDS: lamoTRIgine 100 MG TAB PO SCH (22:37)
[2024-02-20] MEDS: GABAPENTIN 300 MG CAP PO SCH (22:38)
[2024-02-21] MEDS: LEVOTHYROXINE SODIUM 150 MCG TABLET PO SCH (05:28)
--- NOTE | 2024-02-21 07:47 | Hospitalist Progress Note ---
Date of Service February 21, 2024 Assessment & Plan (1) Dizziness: Plan: H/o of near-syncopal event 02/19- was walking for exercise and "crumbled" to the ground. No symptoms prior to the event to include chest pain/headache/dizziness, no loss of consciousness; witnessed by "friends" Prior admission 03/10/2024- for strokelike symptoms as well as dizziness; diagnosed with benign positional vertigo and discharged on as ASA daily and meclizine Hx TIA in 2019, remains on ASA 81mg daily EKG w/ SR, rates 80bpm. CXR without acute pneumonia/volume overload. Trop minimal elevattion 22.7 (added repeat for today) CT head negative for acute abn, chronic microvascular ischemic changes noted CXR without acute consolidation/pulmonary edema ECHO w/o significant change, EF 60-65%, no wma. Mild cLVH, grade I diastolic dysfunction TSH wnl 2.475 (prior elevation), compliant with medications Venous doppler LLE NEGATIVE for DVT. CK NOT elevated (hx of elevation in the past) Notable patient does have baseline arthritis on the right knee, hx of severe arthritis, meniscal tear, partial PCL tear in the past Reports dysuria, UA obtained --> no bacteria but will ask to send for cx Orthostatic VS ordered, not in chart but does have orthostatic hypotension. ?Seroquel contributing * Discussed w/ [facility] liaison who knows Farrah well and they had attempted to titrate her Seroquel in the past and made no difference. They will continue to follow, patient on quite heavy regimen but has been stable w/ such reportedly, did resume home clozapine to prevent withdrawal TRIAL MIDODRINE 2.5mg TID, monitor repeat orthostatic VS following Baseline worsened constipation issues recently from psychiatric medications ( to have c-scope this year) ,suspect worsened since placed on PO iron for LOW ferritin levels (improved on repeat) KUB obtained to eval stool burden, SIGNIFICANT DRY STOOL. No obstruction. (Last BM reported 3-4 days ago), --> added bowel regimen, suppository and will monitor w/ IVF for hydration overnight as constipation could contribute to weakness as well PCP checked B12 recently --> low normal @ 190 and will order IM while inpatient and plan to continue PO at discharge (does have underlying neuropathy) For orthostatic hypotension, will trial MIDODRINE 2.5mg TID and monitor repeat orthostatics/exam. ?underlying meneires? Could trial a lasix/HCTZ but will hold off for now to prevent worsened dehydration w/ her constipation Cortisol w/ AM labs PT/OT consults added given repeat falls to see if any needs at ca. Consideration for MRI brain if ongoing issues but will hold off for now given appearing acute on chronic in nature (2) Calf swelling: Plan: Left calf size discrepancy compared to right calf, remains on asa 81mg daily. Venous doppler NEGATIVE (3) Schizoaffective disorder: Plan: Per history - Clozapine 300 mg nightly, 100 mg every morning, 50 mg twice daily --> RESUMED to prevent withdrawal - Lamotrigine 200 mg p.o. twice daily - Quetiapine 100 mg p.o. every morning, quetiapine 300 mg p.o. nightly [facility] Liaison consulted (4) 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: Plan: Most recent A1C (12/04) at 6.3% SSI with target BSG range 110-140mg/dL, CF 30, carb ratio 15 On metformin 1000 mg daily; hold T2DM diet BSG ACHS Adjust regimen as needed (5) Hypothyroidism: Plan: Per history - TSH (02/17) 2.475 - Levothyroxine 150 mcg every morning (6) Vitamin B12 deficiency: Plan: noted just checked this week and was LOW NORMAL at 190 -- IM while inpatient Plan HLD- simvastatin 20 mg p.o. nightly Neuropathic pain- gabapentin 300 mg p.o. nightly, B12 replacement as above Chronic ROCIO- H&H on admission 10.4/32.9 (baseline hemoglobin 9-10, HCT 30-34%), takes ferrous sulfate 325 mg daily, place on hold for now given constipation Vit D deficiency- vitamin D3 25 mcg p.o. twice daily. check level w/ AM labs to ensure not over corrected/toxic GERD- omeprazole 40 mg p.o. every morning VTE prophylaxis: SCDs for now added, will plan to add chemoproph in AM if remaining inpatient Dispo: continued inpatient stay, B12 replacement, PT/OT consults pending Notable meniscus injury on R knee in the past, monitor for any further imaging/eval. Admission and Anticipated Discharge Date Admission Date: February 20, 2024 Supervising Physician Co-Signing Physician Notes The patient was not seen by me. The chart was reviewed. Case discussed with RASHAD Stiles. Agree with assessment and plan Subjective Evaluated this afternoon, [facility] liaison in room, patient tearful, crying about ongoing medical issues and concerns for her health and wanting it to "be over". When asked if SI/HI, denies at this time but has been suicidal in the past. Admitted w/ acute on chronic dizziness w/ standing/worse w/ sitting/standing up. Discussed concerns for medications Seroquel NOT new, has been adjusted in the past but always back to present dosing for mood. Discussed checking additional labs. She was due for colonoscopy for chronic constipation as well. Notable is on PO iron recently. B12 IM injections to be provided. She reports appetite OK, not great. Not moved her bowels in several days. Discussed constipation can also contribute to symptoms of weakness. Agreeable to suppository. Will plan to check cortisol level in AM as well as inflammatory markers. She feels worried about going home and not being able, discussed therapy evals and rehab if needed before going home. She is wanting to go to the inpatient psych floor -- support being provided and will have follow up daily. Will discuss w/ supervising provider about possible attempts at midodrine for orthostasis to see if able to improve symptoms. Physical Exam Physical Exam: General:63yo female laying in bed, [facility] liason at bedside, tearful/crying, support provided, emotionally labile HEENT: R eye deviation, pupils equal in size,, mm slightly DRY appearing, trachea midline Resp: diminished in the bases but no overt wheezing/rales, on room air, no cough/tachypnea CV: RRR, no significant m/r/g, L>R LE, trace pedal edema (at baseline reportedly) GI: +BS, soft but slight distension, generalized tenderness, +palpable stool, no rigidity/peritoneal signs no ramirez MSK/Neuro: baseline R knee arthritis, generalized weakness but does not appear to be focal, moves extremities bilaterally Psych: alert/orientedx3 but tearful/fearful at times, support provided Results & Data Results & Data Vital Signs (Past 12 Hours) Vital Signs Temp Pulse Resp BP Pulse Ox O2 Del Method 02/21/24 07:08 36.5 C 70 16 105/68 96 Room Air 02/20/24 22:10 36.6 C 68 16 115/71 98 Room Air Laboratory Results 02/21/24 02/21/24 02/21/24 Range/Units 16:30 11: 08:12 WBC 3.87 L (4.8-10.8) K/ul RBC 3.26 L (4.20-5.40) M/uL Hgb 9.8 L (12.0-16.0) g/dl Hct 30.9 L (37.0-47.0) % MCV 94.8 (80.0-100.0) fL MCH 30.1 (25.0-34.0) pg MCHC 31.7 L (32.0-36.0) g/dL RDW Std Deviation 48.7 H (36.4-46.3) fL RDW Coeff of Radha 14.1 (11.5-14.5) % Plt Count 217 (130-400) K/uL MPV 9.8 (9.4-12.4) fL ESR 15 (0-30) mm/hr Sodium 140 (136-145) mmol/L Potassium 4.5 (3.5-5.1) mmol/L Chloride 109 H (98-107) mmol/L Carbon Dioxide 26 (21-32) mmol/L Anion Gap 5 (3-11) BUN 17 (6-23) mg/dl Creatinine 0.88 (0.6-1.2) mg/dl Est Cr Clr Drug Dosing 73.6 ml/min eGFR 73.80 BUN/Creatinine Ratio 19.3 (10-20) Glucose 92 (70-99(Fasting)) mg/dl POC Glucose 88 100 H (70-99) mg/dl Calcium 8.8 (8.6-10.3) mg/dl Magnesium 2.0 (1.7-2.4) mg/dl Iron 59 (35-150) mcg/dl TIBC 221 L (250-450) mcg/dl Unsaturated IBC 162 (155-355) mcg/dl Transferrin % Sat 27 (15-50) % Ferritin 54.7 (8-388) ng/ml Total Creatine Kinase 133 (26-192) U/L Lyme Disease Screen Negative (Negative) 02/21/24 02/20/24 Range/Units 07:28 20:29 WBC (4.8-10.8) K/ul RBC (4.20-5.40) M/uL Hgb (12.0-16.0) g/dl Hct (37.0-47.0) % MCV (80.0-100.0) fL MCH (25.0-34.0) pg MCHC (32.0-36.0) g/dL RDW Std Deviation (36.4-46.3) fL RDW Coeff of Radha (11.5-14.5) % Plt Count (130-400) K/uL MPV (9.4-12.4) fL ESR (0-30) mm/hr Sodium (136-145) mmol/L Potassium (3.5-5.1) mmol/L Chloride (98-107) mmol/L Carbon Dioxide (21-32) mmol/L Anion Gap (3-11) BUN (6-23) mg/dl Creatinine (0.6-1.2) mg/dl Est Cr Clr Drug Dosing ml/min eGFR BUN/Creatinine Ratio (10-20) Glucose (70-99(Fasting)) mg/dl POC Glucose 97 105 H (70-99) mg/dl Calcium (8.6-10.3) mg/dl Magnesium (1.7-2.4) mg/dl Iron (35-150) mcg/dl TIBC (250-450) mcg/dl Unsaturated IBC (155-355) mcg/dl Transferrin % Sat (15-50) % Ferritin (8-388) ng/ml Total Creatine Kinase (26-192) U/L Lyme Disease Screen (Negative) Diagnostic Findings Chest X-Ray 02/20/24 08:12 XR chest 1V portable CLINICAL HISTORY: Chest pain, nonspecific. Fall. COMPARISON STUDY: Chest CT January 01, 2024. Chest radiograph January 09, 2024. FINDINGS: Lung volumes are normal. Lungs are clear. There is no pneumothorax or pleural effusion. Cardiomegaly is unchanged. Mediastinal contours are normal. There is no evidence for pulmonary edema. IMPRESSION: No acute cardiopulmonary findings. No change in appearance of the chest. ACT 112: Negative or not required by law. Electronically signed by: Tony Hilliard M.D. 02/20/2024 8:[address] 02/20/24 08:12 CT head/brain wo con CLINICAL HISTORY: 63 years-old Female with BAEZA/dizzy. Acute headache with dizziness TECHNIQUE: Multiple axial CT images of the head were obtained without contrast. A dose lowering technique was utilized adhering to the principles of ALARA. COMPARISON: 02/11/2024 FINDINGS: No acute intracranial hemorrhage, midline shift, intracranial mass, hydrocephalus, territorial ischemia or abnormal extra-axial collection. Involutional changes with probable chronic microvascular ischemic disease. The calvarium is intact. Minimal mucosal thickening of the paranasal sinuses. The mastoid air cells are clear. Leftward bowing and spurring of the nasal septum. IMPRESSION: No acute intracranial abnormality identified. ACT 112: Negative or not required by law. The above report was generated using voice recognition software. It may contain grammatical, syntax or spelling errors. Electronically signed by: Lanre Green M.D. 02/20/2024 8:[address] 02/20/24 08:18 CT OF THE CERVICAL SPINE WITHOUT CONTRAST CLINICAL HISTORY: Fall. COMPARISON STUDY: Cervical spine CT February 11, 2024. TECHNIQUE: Helical axial images of the cervical spine were obtained without IV contrast. Sagittal and coronal reconstructions were viewed. Automated exposure control was utilized for the study. A dose lowering technique was utilized adhering to the principles of ALARA. FINDINGS: Alignment of the cervical spine is anatomic. Vertebral body heights are maintained. No acute cervical spine fracture or subluxation is present. There is no prevertebral edema. Facet joints are intact. Extensive osteophytosis of the cervical spine is noted. There is moderate multilevel disc space narrowing. IMPRESSION: No acute cervical spine fracture or subluxation. ACT 112: Negative or not required by law. Electronically signed by: Tony Hilliard M.D. 02/20/2024 8:[address] 02/20/24 08:18 CT OF THE LUMBAR SPINE CLINICAL HISTORY: Back pain following fall. COMPARISON STUDY: Lumbar spine CT January 09, 2024. TECHNIQUE: Helical axial images of the lumbar spine were obtained. Sagittal and coronal reconstructions were viewed. Automated exposure control was utilized for the study. A dose lowering technique was utilized adhering to the principles of ALARA. FINDINGS: Alignment of the lumbar spine is anatomic. There are no fractures. Vertebral body heights are maintained. There are no osseous lesions. There is mild disc space narrowing and moderate osteophytosis and facet arthrosis within the lumbar spine. The appearance of the lumbar spine is unchanged. Paravertebral soft tissues are unremarkable. IMPRESSION: No acute lumbar spine fracture or subluxation. ACT 112: Negative or not required by law. Electronically signed by: Tony Hilliard M.D. 02/20/2024 8:57 AM Venous Doppler Study 02/20/24 10:21 LEFT LOWER EXTREMITY VENOUS DOPPLER HISTORY: Acute pain as well as left lower leg Calf size disc., L calf pain COMPARISON STUDY: None. FINDINGS: There is normal compressibility, flow, and augmentation within the left lower extremity deep venous system. IMPRESSION: No DVT within the left lower extremity. ACT 112: Negative or not required by law. Electronically signed by: Lanre Green M.D. 02/20/2024 11:25 AM KUB X-Ray 02/21/24 13:36 INDICATION: Abdominal pain TECHNIQUE: Portable supine view radiograph of the abdomen was obtained. COMPARISON: None FINDINGS: The bowel gas pattern is nonobstructive. There is moderate quantity of desiccated stool noted over the large bowel and over the rectal vault. No significantly air distended loops of small bowel identified. Evaluation for free air is limited due to supine technique. IMPRESSION: Moderate quantity of desiccated stool over the large bowel and over the rectal vault suggesting constipation. Electronically signed by Hitesh Chang 02-21-2024 3:59 PM PG Care Time/CCT Total # of Minutes Spent Total Time Spent with Patient: Total time spent is greater than 50% in coordination of care (as documented) at patient's floor/unit and/or counseling patient: Coding Level of Care Code 97628 SUB INP/OBS CARE 3/50MIN Diagnoses Dizziness R42 Calf swelling M79.89 Schizoaffective disorder, bipolar type F25.0 Schizoaffective disorder type: bipolar 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 E11.319 Hypothyroidism E03.9 Vitamin B12 deficiency E53.8 (3) Schizoaffective disorder Schizoaffective disorder type: bipolar Qualified Code(s): F25.0 - Schizoaffective disorder, bipolar type
[2024-02-21] MEDS: PANTOprazole 40 MG TAB PO SCH (08:22)
[2024-02-21] MEDS: QUEtiapine FUMARATE 100 MG TABLET PO SCH (08:22)
[2024-02-21] MEDS: FERROUS SULFATE 325 MG TAB PO SCH (08:22)
[2024-02-21] MEDS: ASPIRIN 81 MG ECTAB PO SCH (08:22)
[2024-02-21 09:05] LABS: Hematocrit (blood only) 30.9 % (37.0-47.0); Hemoglobin 9.8 g/dl (12.0-16.0); Mean Corpuscular Hemoglobin 30.1 pg (25.0-34.0); Mean Corpuscular Hgb Conc 31.7 g/dL (32.0-36.0); Mean Corpuscular Volume 94.8 fL (80.0-100.0); Mean Platelet Volume 9.8 fL (9.4-12.4); Platelet Count 217 K/uL (130-400); RDW Coefficient of Variation 14.1 % (11.5-14.5); RDW Standard Deviation 48.7 fL (36.4-46.3); Red Blood Count 3.26 M/uL (4.20-5.40); White Blood Count 3.87 K/ul (4.8-10.8)
[2024-02-21 09:12] LABS: BUN Creatinine Ratio 19.3 (10-20); Calcium 8.8 mg/dl (8.6-10.3); Creatinine Clr Calc Pharmacy 73.6 ml/min; Potassium 4.5 mmol/L (3.5-5.1)
[2024-02-21 09:32] LABS: Ferritin 54.7 ng/ml (8-388)
[2024-02-21] MEDS: CYANOCOBALAMIN 1000 MCG/ML VIAL IM SCH (10:52)
[2024-02-21] MEDS: bisacodyL 10 MG SUPP PR STA (14:03)
[2024-02-21] MEDS: DOCUSATE SODIUM 100 MG CAP PO SCH (14:03)
[2024-02-21] MEDS: POLYETHYLENE (MIRALAX) 17 GM PACK PO SCH (14:03)
[2024-02-21] MEDS: THIAMINE HCL 500 MG in SODIUM CHLORIDE 0.9% 50 ML IV SCH (15:03)
--- NOTE | 2024-02-21 15:59 | XRay Report ---
INDICATION: Abdominal pain TECHNIQUE: Portable supine view radiograph of the abdomen was obtained. COMPARISON: None FINDINGS: The bowel gas pattern is nonobstructive. There is moderate quantity of desiccated stool noted over the large bowel and over the rectal vault. No significantly air distended loops of small bowel identified. Evaluation for free air is limited due to supine technique. IMPRESSION: Moderate quantity of desiccated stool over the large bowel and over the rectal vault suggesting constipation. Electronically signed by Hitesh Chang 02-21-2024 3:59 PM
[2024-02-21] MEDS: MIDODRINE HCL 2.5 MG TAB PO SCH (16:19)
[2024-02-21] MEDS ORDERED: bisacodyL 10 MG SUPP PR PRN (16:34)
[2024-02-21] MEDS: SODIUM CHLORIDE 0.9% 500 ML IV SCH (17:41)
[2024-02-21 22:03] LABS: BUN Creatinine Ratio 14.3 (10-20); Calcium 8.9 mg/dl (8.6-10.3); Creatinine Clr Calc Pharmacy 57.8 ml/min; Potassium 4.2 mmol/L (3.5-5.1)
[2024-02-21] MEDS: cloZAPine 100 MG TAB PO SCH (22:07)
[2024-02-21] MEDS: cloZAPine 25 MG TAB PO SCH (22:07)
[2024-02-22] MEDS: MICONAZOLE NITRATE POWDER 85 GM EXT SCH (00:02)
[2024-02-22 08:04] LABS: BUN Creatinine Ratio 20.4 (10-20); Calcium 8.8 mg/dl (8.6-10.3); Creatinine Clr Calc Pharmacy 66.1 ml/min; Potassium 4.3 mmol/L (3.5-5.1)
[2024-02-22 08:20] LABS: Thyroid Stimulating Hormone 1.012 uIu/ml (0.300-4.500)
[2024-02-22 08:22] LABS: T4 Free Thyroxine 0.7 ng/dl (0.61-1.60)
--- NOTE | 2024-02-22 09:10 | Hospitalist Progress Note ---
Date of Service February 22, 2024 Assessment & Plan (1) Dizziness: Plan: H/o of near-syncopal event 02/19- was walking for exercise and "crumbled" to the ground. No symptoms prior to the event to include chest pain/headache/dizziness, no loss of consciousness; witnessed by "friends" Prior admission 03/10/2024- for strokelike symptoms as well as dizziness; diagnosed with benign positional vertigo and discharged on as ASA daily and meclizine Hx TIA in 2018, remains on ASA 81mg daily EKG w/ SR, rates 80bpm. CXR without acute pneumonia/volume overload. Trop minimal elevattion 22.7 (added repeat for today) CT head negative for acute abn, chronic microvascular ischemic changes noted CXR without acute consolidation/pulmonary edema ECHO w/o significant change, EF 60-65%, no wma. Mild cLVH, grade I diastolic dysfunction TSH wnl 2.475 (prior elevation), compliant with medications Venous doppler LLE NEGATIVE for DVT. CK NOT elevated (hx of elevation in the past) Notable patient does have baseline arthritis on the right knee, hx of severe arthritis, meniscal tear, partial PCL tear in the past Reports dysuria, UA obtained --> no bacteria but will ask to send for cx (not yet obtained per nursing) Discussed w/ [facility] liaison who knows Farrah well and they had attempted to titrate her Seroquel in the past and made no difference. -->They will continue to follow, patient on quite heavy regimen but has been stable w/ such reportedly, did resume home clozapine to prevent withdrawal Started MIDODRINE 2.5mg TID 02/20, plan to monitor orthostatic VS PCP checked B12 recently and noting low normal @ 190 and will order IM while inpatient and plan to continue PO at discharge (does have underlying neuropathy) Baseline worsened constipation issues recently from psychiatric medications KUB obtained, noting SIGNIFICANT DRY STOOL (last BM 3-4 days prior, to have c- scope this year and suspect worsened constipation w baseline psych meds and addition of PO iron Suppository/enema as needed 02/21 NO FURTHER DIZZINESS IN AM reported LAYING IN BED, just ongoing weakness HOWEVER is having when getting up in bed reportedly, repeat orthostatic VS obtained: Orthostatic VS 02/20 126/81 lying, 152/91 sitting and 102/65 standing with PT Orthostatic VS today (02/21) 112/68 laying, 94/62 sitting, 99/62 with standing -->INCREASING MIDODRINE from 2.5mg TID TO 5mg TID given improvement in orthostatic VS and will continue to monitor/increase as needed for improvement in sx. Cortisol level NOT low Continue B12 IM injections while inpatient, plans to continue PO supplementation at discharge Working on bowel regimen as well given can contribute. (Ammonia NOT elevated) TSH wnl, however checked T3/T4 given constipation issues and due for scope --> T3 low at 2.23 but borderline. Per supervising provider, NOT to increase synthroid but rec for repeat TFT w/ PCP outpt PT/OT rec return home w/ HH services/support -- repeat eval today and did well, do not believe will meet criteria for inpatient need. CM notified ?MRI if needed (2) Calf swelling: Plan: Left calf size discrepancy compared to right calf, remains on asa 81mg daily. Venous doppler NEGATIVE (3) Schizoaffective disorder: Plan: Per history - Clozapine 300 mg nightly, 100 mg every morning, 50 mg twice daily --> RESUMED to prevent withdrawal - Lamotrigine 200 mg p.o. twice daily - Quetiapine 100 mg p.o. every morning, quetiapine 300 mg p.o. nightly [facility] Liaison consulted, plan to continue to follow (4) 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: Plan: Most recent A1C (12/04) at 6.3% SSI with target BSG range 110-140mg/dL, CF 30, carb ratio 15 On metformin 1000 mg daily; hold while inpatient and continue BSG AC/HS w/ SSI while inpatient Did have bump in BSG isolated to 300s last evening -- ?inaccurate, repeat in 90s and did not have any intervention. Monitor for further eval if occurs. (5) Hypothyroidism: Plan: TSH wnl, T3 slightly low as above but discussed w/ supervising provider and recs to continue current 150mcg daily dose and have repeat TFT w/ PCP in 4-6 wks/adjustment if needed (6) Vitamin B12 deficiency: Plan: noted just checked this month and was LOW NORMAL at 190 -- IM while inpatient/PO at ri planned Plan HLD- simvastatin 20 mg p.o. nightly Neuropathic pain- gabapentin 300 mg p.o. nightly, B12 replacement as above Chronic ROCIO- H&H on admission 10.4/32.9 (baseline hemoglobin 9-10, HCT 30-34%), takes ferrous sulfate 325 mg daily, place on hold for now given constipation Vit D deficiency- vitamin D3 25 mcg p.o. twice daily. check level w/ AM labs to ensure not over corrected/toxic GERD- omeprazole 40 mg p.o. every morning VTE prophylaxis: SCDs added, will add Lovenox SQ given continued inpatient stay Dispo: continued inpatient stay, changed to admission. Continue B12 supplementation, midodrine increased for orthostasis and will monitor repeat orthostatic VS CM to follow as PT/OT rec at baseline and no need for rehab as patient not feeling safe to return home at ri per discssuion w/ her today Admission and Anticipated Discharge Date Admission Date: February 20, 2024 Supervising Physician Co-Signing Physician Notes The patient was not seen by me. The chart was reviewed. Case discussed with RASHAD Stiles. Agree with assessment and plan Subjective Eval this morning, resting in bed. Ongoing B12 supplementation being provided as discussed. Meclizine on HOLD as likely contributing. Continues on MIDODRINE, will monitor to increase as needed pending repeat orthostatic VS. Ate breakfast, ongoing weakness but reporting improvement in dizziness. Passing gas but not moving bowels yet. Given suppository yesterday, will plan for enema today if still not moving them as discussed constipation can contribute to weakness. She initially wanted home but is agreeable to [facility] if that is what is recommended. Message to PT for repeat evals as do suspect would be beneficial prior to returning home given ongoing falls. She would like to continue to see U while inpatient, mentioned if needing assisted living she would be open to consider given significant concerns on her returning home w/ fear for falling, however does note she wants to get up and walk around today. Some SOB but not hypoxic, discussed getting incentive spirometer/using to prevent atelectasis. Questions/concerns addressed at this time. Physical Exam 2 Physical Exam: General: 63yo female resting in bed, NAD but emotional at times HEENT: R eye deviation at times but pupils equal in size, mm IMPROVING, trachea midline Resp: diminished in the bases but no overt wheezing/rales, on room air, no cough/tachypnea CV: RRR, no significant m/r/g, L>R LE, trace pedal edema (at baseline reportedly) GI: +BS, soft but slightly more distended, +palpable stool, no rigidity/peritoneal no ramirez MSK/Neuro: baseline R knee arthritis, generalized weakness but does not appear to be focal, moves extremities bilaterally Psych: alert/orientedx3 but tearful/fearful at times, support provided Results & Data Results & Data Vital Signs (Past 12 Hours) Vital Signs Temp Pulse Resp BP Pulse Ox O2 Del Method 02/22/24 07:36 37 C 74 16 115/73 96 Room Air Laboratory Results 02/21/24 08:12 02/22/24 07:15 25 Vit D 29.3 TSH 1.012, T4 0.70, T3 2.23. Cortisol 9.27 Diagnostic Findings KUB X-Ray 02/21/24 13:36 INDICATION: Abdominal pain TECHNIQUE: Portable supine view radiograph of the abdomen was obtained. COMPARISON: None FINDINGS: The bowel gas pattern is nonobstructive. There is moderate quantity of desiccated stool noted over the large bowel and over the rectal vault. No significantly air distended loops of small bowel identified. Evaluation for free air is limited due to supine technique. IMPRESSION: Moderate quantity of desiccated stool over the large bowel and over the rectal vault suggesting constipation. Electronically signed by Hitesh Chang 02-21-2024 3:59 PM PG Care Time/CCT Total # of Minutes Spent Total Time Spent with Patient: Total time spent is greater than 50% in coordination of care (as documented) at patient's floor/unit and/or counseling patient: Coding Level of Care Code 48576 SUB INP/OBS CARE 3/50MIN Diagnoses Dizziness R42 Calf swelling M79.89 Schizoaffective disorder, bipolar type F25.0 Schizoaffective disorder type: bipolar 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 E11.319 Hypothyroidism E03.9 Vitamin B12 deficiency E53.8 (3) Schizoaffective disorder Schizoaffective disorder type: bipolar Qualified Code(s): F25.0 - Schizoaffective disorder, bipolar type
[2024-02-22] MEDS: cloZAPine 100 MG TAB PO SCH (14:23)
[2024-02-22] MEDS: MIDODRINE HCL 2.5 MG TAB PO ONE (14:26)
[2024-02-22] MEDS: MIDODRINE HCL 2.5 MG TAB PO SCH (17:21)
[2024-02-22] MEDS: SOD PHOSPHATE/SOD BIPHOSPHATE ENEMA 132 ML BTL PR PRN (17:57)
[2024-02-23 07:11] LABS: BUN Creatinine Ratio 21.4 (10-20); Creatinine Clr Calc Pharmacy 77.1 ml/min; Potassium 4.4 mmol/L (3.5-5.1)
--- NOTE | 2024-02-23 07:56 | Hospitalist Progress Note ---
Date of Service February 23, 2024 Assessment & Plan (1) Weakness: Plan: H/o of near-syncopal event 02/19- was walking for exercise and "crumbled" to the ground. No symptoms prior to the event to include chest pain/headache/dizziness, no loss of consciousness; witnessed by "friends" Prior admission 03/10/2024- for strokelike symptoms as well as dizziness; diagnosed with benign positional vertigo and discharged on as ASA daily and meclizine Hx TIA in 2018, remains on ASA 81mg daily EKG w/ SR, rates 80bpm. CXR without acute pneumonia/volume overload. NO TROPONIN elevation CT head negative for acute abn, chronic microvascular ischemic changes noted CXR without acute consolidation/pulmonary edema ECHO w/o significant change, EF 60-65%, no wma. Mild cLVH, grade I diastolic dysfunction TSH wnl 2.475 (prior elevation), compliant with medications -->T3 low but per supervising provider to repeat w/ PCP outpatient and not make adjustment at this time Venous doppler LLE NEGATIVE for DVT. CK NOT elevated. Hx R knee meniscal tear/partial PCL noted in the past Cortisol level wnl [facility] liaison consulted/following -- prior titration of seroquel did NOT make difference in her symptoms and remains on home psychiatric regimen Suspect deconditioning from repeat falls 2nd to , orthostatic hypotension, neuropathy w/ low B12, constipation +/- UTI given complaints of dysuria on admission along with chronic lumbar stenosis contributing weakness with repeat falls at home UA not overly infected appearing but urine cx ordered and had not been collected, reports of incontinence and urine cx sent -->Will start Ceftriaxone 2gm IV daily and monitor final urine cx to see if improvement given lower back pain/groin radiation. Lumbar xray negative but could consider further imaging if needed Provided 1L IVF for dehydration on exam/constipation with poor PO intake. Improving B12 LOW NORMAL @ 190, IM replacement while inpatient ordered and would continue PO supplementation at discharge For constipation, enema provided 02/21, LARGE BM following and holding off PO iron supplementation as suspect with her psych meds/anticholinergic effects worsening constipation along w/ meclizine 50mg for bppv Midodrine started 2.5mg TID, orthostatic VS improved from 02/20 to 02/21 however ongoing symptoms and still positive and increased to 5mg TID and will monitor to see if needing increased. Interestingly she does have significant daytime sleepiness and inquired about underlying FRIDA and she reports she is due for sleep study with Dr Ward --> will order overnight sleep study while inpatient and arrange O2 pending results until able to have formal sleep study outpatient. Continue therapy, up to chair for meals (reports feeling improved following that day before) Does appear improved despite patient reports, U continues to follow. (2) Dizziness: Plan: improving slowly but increased midodrine as above and monitoring. continue B12 supplementation/therapy evals. rec change positions slowly home meclizine on hold but could consider low dose if ongoing issues w/ increased midodrine (3) Schizoaffective disorder: Plan: Per history - Clozapine 300 mg nightly, 100 mg every morning, 50 mg twice daily --> RESUMED to prevent withdrawal - Lamotrigine 200 mg p.o. twice daily - Quetiapine 100 mg p.o. every morning, quetiapine 300 mg p.o. nightly [facility] Liaison consulted, plan to continue to follow (4) 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: Plan: Most recent A1C (12/04) at 6.3% SSI with target BSG range 110-140mg/dL, CF 30, carb ratio 15 On metformin 1000 mg daily; hold while inpatient and continue BSG AC/HS w/ SSI while inpatient Did have bump in BSG isolated to 300s evening 02/20, ?inaccutate, underlying infection? Urine cx pending/ctx started as above BSGs IMPROVING/stable and will monitor (5) Hypothyroidism: Plan: TSH wnl, T3 slightly low as above but discussed w/ supervising provider and recs to continue current 150mcg daily dose and have repeat TFT w/ PCP in 4-6 wks/adjustment if needed (6) Vitamin B12 deficiency: Plan: noted just checked this month and was LOW NORMAL at 190 -- IM while inpatient/PO at dc planned (7) Orthostatic hypotension: Plan: as above, monitor repeat w/ increased midodrine/consider further increase pending repeat measurements/sx/exam (8) Calf swelling: Plan: Left calf size discrepancy compared to right calf, remains on asa 81mg daily. Venous doppler NEGATIVE monitor for repeat xray, prior injections provided in the past. Plan HLD- simvastatin 20 mg p.o. nightly Neuropathic pain- gabapentin 300 mg p.o. nightly, B12 replacement as above Chronic ROCIO- H&H on admission 10.4/32.9 (baseline hemoglobin 9-10, HCT 30-34%), takes ferrous sulfate 325 mg daily, place on hold for now given constipation Ferritin level 54, can consider dose Venofer in AM to prevent need for PO at this time Vit D deficiency- vitamin D3 25 mcg p.o. twice daily. level low normal 29 and will continue on check GERD- omeprazole 40 mg p.o. every morning VTE prophylaxis: SCDs, Lovenox SQ added/continued Dispo: continued inpatient stay, changed to admission. Continue B12 IM, bowel regimen. Midodrine increased to 5mg TID and monitor for further increase. Ceftriaxone started for possible UTI (does have nonobstructing stones on imaging)-- f/u urine cx PT/OT cleared for home however fearful for repeat falls --> CM to f/u discussions. Continued monitoring/therapy while inpatient to prevent worsening Admission and Anticipated Discharge Date Admission Date: February 22, 2024 Supervising Physician Co-Signing Physician Notes The patient was not seen by me. The chart was reviewed. Case discussed with RASHAD Stiles. Agree with assessment and plan Subjective Evaluated this morning, ate breakfast but resting in bed. Reports feeling tired today/poorly, emotional support provided. Orthostatic VS improved but still reports some dizziness when getting up and will monitor to increase midodrine pending repeat VS. Having some leg/lower back discomfort today and urinary symptoms, urine cx sent overnight as ordered previously and will start empiric abx for now. Given enema yesterday, reports moving her bowels, LARGE overnight. Continues on bowel regimen, discussed constipation can contribute to urinary retention as and lead to UTI and will monitor. Discussed daytime fatigue, no prior known hx FRIDA but interestingly she does mention having a sleep study w/ Dr Ward soon hopefully as outpatient for testing and will check overnight pulse ox for tonight to see if can arrange supplemental O2 at night until formal sleep study outpatient. Questions/concerns addressed at this time. Physical Exam 2 Physical Exam: General: 63yo female resting in bed, NAD but emotional at times HEENT: R eye deviation at times but pupils equal in size, mm IMPROVED, trachea midline Resp: diminished in the bases but no overt wheezing/rales, on room air, no cough/tachypnea CV: RRR, no significant m/r/g, L>R LE, trace pedal edema (at baseline reportedly) GI: +BS, soft, LESS distended, no rigidity/guarding no ramirez, ?CVA tenderness on the left (radiation to groin reported) MSK/Neuro: baseline b/l knee arthritis, R>L, generalized weakness but does not appear to be focal, moves extremities bilaterally Psych: alert/orientedx3 but tearful/fearful at times, support provided Results & Data Results & Data Vital Signs (Past 12 Hours) Vital Signs Temp Pulse Resp BP Pulse Ox O2 Del Method 02/23/24 07:05 36.5 C 70 16 110/72 94 Room Air 02/22/24 20:00 36.6 C 69 16 112/71 96 Room Air Laboratory Results 02/21/24 08:12 02/23/24 06:21 PG Care Time/CCT Total # of Minutes Spent Total Time Spent with Patient: Total time spent is greater than 50% in coordination of care (as documented) at patient's floor/unit and/or counseling patient: Coding Level of Care Code 37713 SUB INP/OBS CARE 3/50MIN Diagnoses Weakness R53.1 Dizziness R42 Schizoaffective disorder, bipolar type F25.0 Schizoaffective disorder type: bipolar 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 E11.319 Hypothyroidism E03.9 Vitamin B12 deficiency E53.8 Orthostatic hypotension I95.1 Calf swelling M79.89 (3) Schizoaffective disorder Schizoaffective disorder type: bipolar Qualified Code(s): F25.0 - Schizoaffective disorder, bipolar type
[2024-02-23] MEDS: ENOXAPARIN INJ 40 MG/0.4 ML SYR SQ SCH (08:35)
[2024-02-23] MEDS: cefTRIAXone SODIUM 2,000 MG/50 ML BAG IV SCH (11:36)
[2024-02-23] MEDS: GLUCOSE 40% GEL 15 GM TUBE PO PRN (11:52)
[2024-02-24 07:01] LABS: Basophils # (auto) 0.02 K/uL (0.00-0.20); Basophils % (auto) 0.2 %; Eosinophils # (auto) 0.07 K/uL (0.00-0.50); Eosinophils % (auto) 0.8 %; Hematocrit (blood only) 30.4 % (37.0-47.0); Hemoglobin 9.6 g/dl (12.0-16.0); Immature Granulocytes # (auto) 0.03 K/uL (0.01-0.20); Immature Granulocytes % (auto) 0.4 %; Lymphocytes % (auto) 9.5 %; Mean Corpuscular Hemoglobin 29.8 pg (25.0-34.0); Mean Corpuscular Hgb Conc 31.6 g/dL (32.0-36.0); Mean Corpuscular Volume 94.4 fL (80.0-100.0); Mean Platelet Volume 9.7 fL (9.4-12.4); Monocytes # (auto) 0.42 K/uL (0.11-0.59); Neutrophils # (auto) 7.06 K/uL (1.40-6.50); Neutrophils % (auto) 84.1 %; Platelet Count 215 K/uL (130-400); RDW Coefficient of Variation 14.1 % (11.5-14.5); RDW Standard Deviation 48.5 fL (36.4-46.3); Red Blood Count 3.22 M/uL (4.20-5.40)
[2024-02-24 07:15] LABS: BUN Creatinine Ratio 17.8 (10-20); Calcium 9.1 mg/dl (8.6-10.3); Creatinine Clr Calc Pharmacy 60.5 ml/min; Magnesium 2.1 mg/dl (1.7-2.4); Potassium 4.6 mmol/L (3.5-5.1)
--- NOTE | 2024-02-24 08:26 | Hospitalist Progress Note ---
Date of Service February 24, 2024 Assessment & Plan (1) Weakness: Plan: H/o of near-syncopal event 02/19- was walking for exercise and "crumbled" to the ground. No symptoms prior to the event to include chest pain/headache/dizziness, no loss of consciousness; witnessed by "friends" Prior admission 03/10/2024- for strokelike symptoms as well as dizziness; diagnosed with benign positional vertigo and discharged on as ASA daily and meclizine Hx TIA in 2018, remains on ASA 81mg daily EKG w/ SR, rates 80bpm. CXR without acute pneumonia/volume overload. NO TROPONIN elevation CT head negative for acute abn, chronic microvascular ischemic changes noted CXR without acute consolidation/pulmonary edema CT lumbar/thoracic spine without acute abn ECHO w/o significant change, EF 60-65%, no wma. Mild cLVH, grade I diastolic dysfunction TSH wnl 2.475 (prior elevation), compliant with medications -->T3 low but per supervising provider to repeat w/ PCP outpatient and not make adjustment at this time Venous doppler LLE NEGATIVE for DVT. CK NOT elevated. Hx R knee meniscal tear/partial PCL noted in the past Cortisol level wnl [facility] liaison consulted/following -- prior titration of seroquel did NOT make difference in her symptoms and remains on home psychiatric regimen Suspect deconditioning from repeat falls 2nd to , orthostatic hypotension, neuropathy w/ low B12, constipation +/- UTI given complaints of dysuria on admission along with chronic lumbar stenosis contributing weakness with repeat falls at home UA not overly infected but reporting incontinence and dysuria, placed on Ceftriaxone IV and repeat urine cx ordered Lumbar xray initially negative but having LEFT sided radiculopathy (notable prior CT lumbar spine prior to admission imaging noted disc bulges not reported) --> will plan for MRI LUMBAR SPINE given radiculopathy/incontinence issues -- > pending results, consider reaching out to Dr Merlos/ortho spine for review --> Will order Dexamethasone 6mg IV and see if any improvement B12 190, IM replacement continued, can convert to PO and woudl continue at dc Folate 4.45- PO replacement started/continue at dc PO iron on hold given constipation, +BM LARGE 02/21 but nothing further and additional enema for today/continue PO regimen and rec to increase ambuation Midodrine increased to 7.5mg TID for orthostatic hypotension and will continue to monitor Repeat eval in AM, f/u MRI findings and orthostatic VS Therapy to re-eval today (2) Dizziness: Plan: improving slowly and does NOT appear to be c/w BPPV. Will patient reports dizziness really her sx are weakness w/ standing. +orthostatic VS, midodrine as above. MECLIZINE DISCONTINUED as can make orthostasis worse MRI lumbar spine as above, further recs as needed and ongoing therapy evals (3) Schizoaffective disorder: Plan: Continue home clozapine, lamictal and seroquel [facility] liaison consulted/following CONTINUE SUPPORT, feeds on negativity at times and encouraged to stay positive (4) 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: Plan: Most recent A1C (12/04) at 6.3% SSI with target BSG range 110-140mg/dL, CF 30, carb ratio 15 On metformin 1000 mg daily; Had had SSI ordered and had drops yesterday and goal range was 110-140 and was adjusted to 140-180 however w/ borderline repeat POC and NOT on insulin at home STOPPED CARB COVERAGE to prevent lows Monitor w/ decadron if needing to make adjustments. (5) Hypothyroidism: Plan: TSH wnl, T3 slightly low as above but discussed w/ supervising provider and recs to continue current 150mcg daily dose and have repeat TFT w/ PCP in 4-6 wks/adjustment if needed notable does have sx fatigue/anemia/constipation c/w hypothyroidism and could be considered but again prior supervising provider recs to have repeated outpatient w/ PCP (6) Vitamin B12 deficiency: Plan: noted just checked this month and was LOW NORMAL at 190 -- IM while inpatient/PO at mi planned (7) Folate deficiency: Plan: noted on lab check, as obtained given underlying anemia Folate LOW 4.45, PO replacement started/should be continued at mi (8) Orthostatic hypotension: Plan: as above, INCREASED midodrine AM 02/23 to 7.5mg TID and continue to monitor. AVOID meclizine. Seroquel as above not able to be adjusted (9) Calf swelling: Plan: Left calf size discrepancy compared to right calf, remains on asa 81mg daily. Venous doppler NEGATIVE monitor for repeat xray, prior injections provided in the past however no increased swelling on exam Plan HLD- simvastatin 20 mg p.o. nightly Neuropathic pain- gabapentin 300 mg p.o. nightly, B12 replacement as above Chronic ROCIO- H&H on admission 10.4/32.9 (baseline hemoglobin 9-10, HCT 30-34%), takes ferrous sulfate 325 mg daily, place on hold for now given constipation Ferritin level 54, can consider dose Venofer in AM to prevent need for PO at this time Vit D deficiency- vitamin D3 25 mcg p.o. twice daily. level low normal 29 and will continue on check GERD- omeprazole 40 mg p.o. every morning VTE prophylaxis: SCDs, Lovenox SQ added/continued Dispo: continued inpatient stay, increased midodrine for +orthostatics. F/u urine cx repeat MRI lumbar spine for LEFT sided radiculopathy and decadron IV x 1 ordered and will monitor response. Consider continuing daily if improvement/ortho consult if needed Repeat therapy evals to be completed today given patient wishes for rehab but cleard prior. CM to follow Admission and Anticipated Discharge Date Admission Date: February 22, 2024 Subjective Evaluated this morning, depressed about possible discharge and ongoing weakness/fatigue. Reports she slept all night and still feels exhausted. Discussed if she got up to chair for lunch yesterday, she reports she did and feels better after and discussed continuing up to chair/increased ambulation with therapy. She wants to see PT/OT again today. Discussed folate level, midodrine increase. She reports dizziness when standing but when asked if room felt like it was spinning she said no and felt more like her legs were weak and going to give out. Had some urinary incontinence overnight. L sided back pain (but has bilateral) w/ radiation down groin and to posterior thigh with decreased dorsiflexion/plantar flexion and discussed obtaining CT lumbar spine for further eval given prior reports w/ bulging discs and repeated falls at home. Not moving bowels, enema to be provided. +orthostatics this morning, will increase midodrine and monitor repeat VS as well. Physical Exam 2 Physical Exam: General: 63yo female resting in bed, NAD but emotional at times, reporting ongoing weakness to her legs and "dizziness" when standing HEENT: R eye deviation at times but pupils equal in size, mm IMPROVED, trachea midline Resp: diminished in the bases with bibasilar crackles but no overt wheezing/rales, on room air 93%, no cough/tachypnea CV: RRR, no significant m/r/g, L>R LE, trace pedal edema (at baseline reportedly) GI: +BS, +distension, +palpable stool but no overt tenderness/guarding (agreeable to enema/suppository) no ramirez MSK/Neuro: baseline b/l knee arthritis, R>L, generalized weakness LEFT lower leg with decreased dorsiflexion/plantar flexion, +radiculopathy w/ neuropathy b/l feet (however noting neuropathy at baseline) Psych: alert/orientedx3 but tearful/fearful at times, support provided Results & Data Results & Data Vital Signs (Past 12 Hours) Vital Signs Temp Pulse Pulse Resp BP BP Pulse Ox 02/24/24 07:32 36.9 C 74 16 103/70 93 02/24/24 06:26 74 104/69 91 02/24/24 05:05 74 02/24/24 01:30 67 02/23/24 21:11 93 H Pulse Ox O2 Del Method O2 Del Method 02/24/24 07:32 Room Air 02/24/24 06:26 Room Air 02/24/24 05:05 95 Room Air, Free Flow/Blow-by 02/24/24 01:30 89 L Room Air 02/23/24 21:11 97 Room Air Laboratory Results 02/24/24 06:27 02/24/24 06:27 Folate 4.45 PG Care Time/CCT Total # of Minutes Spent Total Time Spent with Patient: Total time spent is greater than 50% in coordination of care (as documented) at patient's floor/unit and/or counseling patient: Coding Level of Care Code 27533 SUB INP/OBS CARE 3/50MIN Diagnoses Weakness R53.1 Dizziness R42 Schizoaffective disorder, bipolar type F25.0 Schizoaffective disorder type: bipolar 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 E11.319 Hypothyroidism E03.9 Vitamin B12 deficiency E53.8 Folate deficiency E53.8 Orthostatic hypotension I95.1 Calf swelling M79.89 (3) Schizoaffective disorder Schizoaffective disorder type: bipolar Qualified Code(s): F25.0 - Schizoaffective disorder, bipolar type
[2024-02-24] MEDS: FOLIC ACID 1 MG TAB PO SCH (10:27)
[2024-02-24] MEDS: SOD PHOSPHATE/SOD BIPHOSPHATE ENEMA 132 ML BTL PR STA (10:29)
[2024-02-24] MEDS: MIDODRINE HCL 2.5 MG TAB PO SCH (11:35)
[2024-02-24 12:42] LABS: Appearance Urine Clear (Clear); Bacteria Urine Automated None Seen (None Seen); Bilirubin Urine Negative (Negative); Blood Urine Negative (Negative); Cast Urine Automated 0-2 /lpf (0-2); Color Urine Yellow; Epithelial Cell Urine Auto 0-2 /hpf (0-2); Glucose Urine UA Negative (Negative); Ketones Urine Negative (Negative); Leukocyte Esterase Urine Trace (Negative); Nitrite Urine Negative (Negative); Protein Urine Negative (Negative); RBC Urine Automated 0-2 /hpf (0-2); Specific Gravity Urine 1.013 (1.000-1.030); Urobilinogen Urine Negative (Negative); WBC Urine Automated 0-5 /hpf (0-5); pH Urine 6.5 (4.5-7.5)
[2024-02-24] MEDS ORDERED: DEXAMETHASONE SOD INJ 4 MG/ML VIAL IV STA (12:47)
--- NOTE | 2024-02-24 13:04 | Magnetic Resonance Report ---
MR lumbar spine wo con CLINICAL HISTORY: 63 years-old Female with +L sided radiculopathy. Chronic low back pain with left l ower extremity radicular symptoms. COMPARISON: 11/25/2022. TECHNIQUE: Multiplanar, multi sequence MRI of the lumbar spine was performed without intravenous cont rast. FINDINGS: [employer] localizer images demonstrate distended urinary bladder. Sixteen degrees levoscoliosis. Conus me dullaris terminates at the L1 level. No acute fracture, subluxation or endplate erosion. No significa nt bone marrow edema. T12-L1: Mild intervertebral disc space narrowing, spondylitic spurring and facet arthrosis. No centr al canal or neural foraminal stenosis. L1-L2: Mild intervertebral disc space narrowing, spondylitic spurring and facet arthrosis. No centra l canal or neural foraminal stenosis. L2-L3: Mild intervertebral disc space narrowing, spondylitic spurring and facet arthrosis. No centra l canal or neural foraminal stenosis. L3-L4: Moderate intervertebral disc space narrowing with [id number] spondylitic spurring redem onstrated. Circumferential annular disc bulge with posterior annular fissure again noted. Ligamentum flavum thickening with moderate facet arthrosis. Mild central canal stenosis, AP dimension of the the jovany sac measuring 9 mm. Mild left with moderate right foraminal narrowing is generally unchanged. L4-L5: Mild intervertebral disc space narrowing, and spondylotic spurring with tiny posterior annula r disc bulge. Ligamentum flavum thickening with moderate facet arthrosis. Central canal is patent. Mi ld inferior bilateral foraminal narrowing. L5-S1: Mild intervertebral disc space narrowing and spondylotic spurring. Ligamentum flavum thickeni ng with moderate facet arthrosis. Small disc bulge is eccentric to the right neural foramen and far r ight lateral space with associated annular fissure, unchanged from prior, again resulting in mild rig ht foraminal stenosis. The central canal and left neural foramen are patent. IMPRESSION: 1. Stable exam from the 11/25/2022 study with discogenic degeneration and annular disc bulging, again most pronounced at L3-L4 and L5-S1. 2. No high-grade central canal or foraminal narrowing. 3. Moderate right-sided foraminal stenosis at L3-L4. ACT 112: Negative or not required by law. The above report was generated using voice recognition software. It may contain grammatical, syntax o r spelling errors. Dictated: 02/24/2024 12:40 PM Transcribed: 02/24/2024 12:51 PM Jerry [id number] [email or web address] Electronically signed by: Lanre Green M.D. 02/24/2024 1:03 PM
[2024-02-24] MEDS: dexAMETHasone 6 MG in SYRINGE 0 ML IV STA (14:06)
[2024-02-25 07:42] LABS: Hematocrit (blood only) 30.6 % (37.0-47.0); Hemoglobin 9.9 g/dl (12.0-16.0); Mean Corpuscular Hemoglobin 30.2 pg (25.0-34.0); Mean Corpuscular Hgb Conc 32.4 g/dL (32.0-36.0); Mean Corpuscular Volume 93.3 fL (80.0-100.0); Mean Platelet Volume 9.7 fL (9.4-12.4); Platelet Count 221 K/uL (130-400); RDW Coefficient of Variation 13.9 % (11.5-14.5); RDW Standard Deviation 46.9 fL (36.4-46.3); Red Blood Count 3.28 M/uL (4.20-5.40); White Blood Count 7.32 K/ul (4.8-10.8)
[2024-02-25 08:08] LABS: Creatinine Clr Calc Pharmacy 84.1 ml/min
[2024-02-25 08:09] LABS: BUN Creatinine Ratio 28.6 (10-20); Calcium 9.2 mg/dl (8.6-10.3); Potassium 4.4 mmol/L (3.5-5.1)
--- NOTE | 2024-02-25 09:24 | Consultation ---
Date of Consultation February 25, 2024 Assessment & Plan (1) Bilateral lumbar radiculopathy: Dr. Merlos has reviewed MRI, CAT scan and treatment plan. MRI showa moderate stenosis throughout her lumbar spine at best. This certainly does not explain her bilateral lower extremity weakness. My best guess is that overall deconditioning is the source of her weakness. there are no acute surgical indications. Would recommend physical therapy focusing on bilateral lower extremity strengthening. She is not myelopathic therefore do not feel that MRI of the thoracic spine is necessary. History of Present Illness Reason for Consultation: Weakness bilateral lower extremities Attending Physician: Gillian Allen MD History of Present Illness Is a pleasant 63-year-old female who we are asked to see in consultation regarding bilateral lower extremity weakness. She states this has been ongoing for quite some time and is now causing her legs to buckle and she is falling. She reports marked multiple falls over an unknown period of time. typically she ambulates with a walker. She has no radicular leg pain. She has some left groin pain that radiates to the lateral hip with ambulation. She also has neuropathy which causes numbness in both of her feet that is well-established. Denies any perineum numbness. Denies loss of control of bowel or bladder. She states she has lower back pain which is new with that is reproduced mostly when sitting for any period of time. Allergies Allergy/AdvReac Type Severity Reaction Status Date / Time lithium Allergy Unknown Unknown Verified 02/18/24 10:15 escitalopram AdvReac Severe Manic Verified 02/18/24 10:15 haloperidol AdvReac Intermediate dystonia Verified 02/18/24 10:15 Penicillins AdvReac Intermediate Gastrointestinal Verified 02/18/24 10:15 Upset valproic acid AdvReac Intermediate Leg Verified 02/18/24 10:15 Swelling Home Medications Medication Instructions Recorded Confirmed Type clozapine 100 mg tablet 300 mg PO HS 01/28/18 02/20/24 History clozapine 100 mg tablet 100 mg PO QAM #7 tabs 10/02/19 02/20/24 Rx clozapine 50 mg tablet 50 mg PO BID #14 tabs 04/23/22 02/20/24 Rx polyethylene glycol 3350 17 17 g PO DAILY PRN constipation 12/20/22 02/20/24 Rx gram/dose oral powder (Miralax) #119 grams acetaminophen 500 mg tablet 1,000 mg PO TID PRN Mild Pain 01/16/23 02/20/24 History (Tylenol Extra Strength) (Scale Score 1-4) lamotrigine 200 mg tablet 200 mg PO BID 02/25/23 02/20/24 History (Lamictal) quetiapine 300 mg tablet (Seroquel) 300 mg PO HS 02/27/23 02/20/24 History aspirin 81 mg tablet,delayed 81 mg PO QAM #90 tabs 05/03/23 02/20/24 Rx release (Enteric Coated Aspirin) omeprazole 20 mg capsule,delayed 40 mg (2 x 20 mg) PO QAM 90 days 07/02/23 Rx release #180 caps rosuvastatin 20 mg tablet 20 mg PO HS #90 tabs 11/16/23 02/20/24 Rx gabapentin 300 mg capsule 300 mg PO HS 01/17/24 02/20/24 History (Neurontin) levothyroxine 150 mcg tablet 150 mcg PO QAM 01/17/24 02/20/24 History meclizine 25 mg tablet 50 mg PO QAM dizziness 01/17/24 02/20/24 History quetiapine 100 mg tablet 100 mg PO QAM 01/17/24 02/20/24 History cholecalciferol (vitamin D3) 25 25 mcg PO BID 90 days #180 tabs 02/07/24 02/20/24 Rx mcg (1,000 unit) tablet metformin 500 mg tablet,extended 1,000 mg (2 x 500 mg) PO QAM #180 02/10/24 02/20/24 Rx release 24 hr tabs ferrous sulfate 325 mg (65 mg 325 mg PO DAILY #30 tabs 02/19/24 02/20/24 Rx iron) tablet (Iron (ferrous sulfate)) Patient History Medical History Schizoaffective disorder Multiple pulmonary nodules pt unsure Thee Hypothyroidism HTN (hypertension) Hyperlipidemia Drug-induced parkinsonism pt unsure - sometimes has tremors Dizziness Type 2 diabetes mellitus Cataract Bilateral Anemia Pneumonia Currently on 3x antibiotics for 10 days - Thee - pt denies symptoms "was just found on CT scan" Anxiety Poor historian Hx of diverticulitis of colon History of colon polyps Brain TIA unsure "2019 maybe, not sure" Depression Frequent falls most recent 01/09/24 [facility] Chronic back pain GERD (gastroesophageal reflux disease) Asthma inhaler prn Constipation Surgical History History of removal of cyst benign cyst removed right breast History of colonoscopy History of tooth extraction all teeth removed History of tonsillectomy and adenoidectomy Family History Grandmother (Paternal) Diabetes Grandmother (Maternal) Diabetes Mother Anemia Bipolar disorder Cardiomyopathy Coronary heart disease Father Diabetes FH: kidney cancer Other No family history of adverse response to anesthesia Parkinson disease Parkinsonian syndrome Social History Smoking Status: Never smoker Second Hand Exposure: No; Do You Dip or Chew Tobacco: No; Hx Alcohol Use: No Hx Substance Use: No Preferred Language: Hebrew Communication Ability: Effective Visual Impairment: No Limitations Hearing Ability: Normal Senior Mainframe Developer Required: No Beliefs That Will Affect Care: None marital status: Single Current Living Situation: Alone Current Living Situation Comment: Lives alone and does not want to continue to live by herself Feels Safe at Home: Yes Gender Identity: Female Assistive Devices: Walker Review of Systems Review of Systems: All systems reviewed & are unremarkable except as noted in HPI & below Physical Exam Physical Exam: She is alert and oriented x 3 Cooperative with exam She has positive logrolling on the left negative on the right Positive compression testing on the left negative on the right. She has some breakaway weakness over the left quadricep otherwise strength is 5/5 bilateral EHL, dorsiflexion, plantar return flexion, hamstrings and hip abductor's and hip adductor's No evidence of ankle clonus bilaterally No evidence of upper motor neuron signs bilateral upper extremities Negative Babinski bilaterally Constitutional: WD/WN, vitals as above Eyes: normal visual fang by confrontation ENMT: external ear and nose normal, oropharynx normal Neck: normal visual inspection Respiratory: normal respiratory effort Cardiovascular: Extremities: normal capillary refill Gastrointestinal (Abdomen): Inspection/Auscultation: abdomen normal to inspection Musculoskeletal: Extremities: extremities normal to inspection Skin: no rashes, warm and dry Neurologic: normal touch/pain/proprioception and moves all extremities Psychiatric: A+Ox3, euthymic affect Eye Contact: + fair eye contact Results & Data Vital Signs (Past 12 Hours) Vital Signs Temp Pulse Resp BP Pulse Ox O2 Del Method 02/25/24 07:38 36.6 C 79 18 96/60 L 99 Room Air Diagnostic Findings [place], [place] [phone] Magnetic Resonance Report Patient: PAMELA HERRERA Admit Date: 02/22/24 MR#: [id number] Address1: [address] [place] [address] Acct ID:[id number] Address2: [address] Date: 1960 [facility] Zip: [place] [address] Age: 63 Location: 3W Sex: F Room/Bed: [facility] Att Phy: Steven Carrion M.D. Diagnosis: DIZZINESS, ORTHOSTATIC HYPOTENSION Ethel Phy: Hillary Clarke MD Service Date: 02/24/24 Fam Phy: Interpreting Phy: Lanre GreenAdmit Phy: Sj Posada MD Ordering Phy: Nayely West PA-C cc: ~ MR lumbar spine wo con CLINICAL HISTORY: 63 years-old Female with +L sided radiculopathy. Chronic low back pain with left lower extremity radicular symptoms. COMPARISON: 11/25/2022. TECHNIQUE: Multiplanar, multi sequence MRI of the lumbar spine was performed without intravenous contrast. FINDINGS: Turning Machine Set Up Operator localizer images demonstrate distended urinary bladder. Sixteen degrees levoscoliosis. Conus medullaris terminates at the L1 level. No acute fracture, subluxation or endplate erosion. No significant bone marrow edema. T12-L1: Mild intervertebral disc space narrowing, spondylitic spurring and facet arthrosis. No central canal or neural foraminal stenosis. L1-L2: Mild intervertebral disc space narrowing, spondylitic spurring and facet arthrosis. No central canal or neural foraminal stenosis. L2-L3: Mild intervertebral disc space narrowing, spondylitic spurring and facet arthrosis. No central canal or neural foraminal stenosis. L3-L4: Moderate intervertebral disc space narrowing with [id number] spondylitic spurring redemonstrated. Circumferential annular disc bulge with posterior annular fissure again noted. Ligamentum flavum thickening with moderate facet arthrosis. Mild central canal stenosis, AP dimension of the thecal sac measuring 9 mm. Mild left with moderate right foraminal narrowing is generally unchanged. L4-L5: Mild intervertebral disc space narrowing, and spondylotic spurring with tiny posterior annular disc bulge. Ligamentum flavum thickening with moderate facet arthrosis. Central canal is patent. Mild inferior bilateral foraminal narrowing. L5-S1: Mild intervertebral disc space narrowing and spondylotic spurring. Ligamentum flavum thickening with moderate facet arthrosis. Small disc bulge is eccentric to the right neural foramen and far right lateral space with associated annular fissure, unchanged from prior, again resulting in mild right foraminal stenosis. The central canal and left neural foramen are patent. IMPRESSION: 1. Stable exam from the 11/25/2022 study with discogenic degeneration and annular disc bulging, again most pronounced at L3-L4 and L5-S1. 2. No high-grade central canal or foraminal narrowing. 3. Moderate right-sided foraminal stenosis at L3-L4. ACT 112: Negative or not required by law. The above report was generated using voice recognition software. It may contain grammatical, syntax or spelling errors. Dictated: 02/24/2024 12:40 PM Transcribed: 02/24/2024 12:51 PM Jerry [id number] [email or web address] Electronically signed by: Lanre Green M.D. 02/24/2024 1:03 PM Dictated: 02/24/24 1240 Transcribed: 02/24/24 1251 [place], [place] [phone] CT Scan Report Patient: PAMELA HERRERA Admit Date: 02/20/24 MR#: [id number] Address1: [address] [place] [address] Acct ID:[id number] Address2: [address] Date: 1960 [facility] Zip: [place] [address] Age: 63 Location: ED Sex: F Room/Bed: Att Phy: Diagnosis: FALL, BACK & NECK PAIN Ethel Phy: Hillary Clarke MD Service Date: 02/20/24 Fam Phy: Interpreting Phy: Tony Hilliard MDAdmit Phy: Ordering Phy: Héctor Alves, cc: ~ CT OF THE LUMBAR SPINE CLINICAL HISTORY: Back pain following fall. COMPARISON STUDY: Lumbar spine CT January 09, 2024. TECHNIQUE: Helical axial images of the lumbar spine were obtained. Sagittal and coronal reconstructions were viewed. Automated exposure control was utilized for the study. A dose lowering technique was utilized adhering to the principles of ALARA. FINDINGS: Alignment of the lumbar spine is anatomic. There are no fractures. Vertebral body heights are maintained. There are no osseous lesions. There is mild disc space narrowing and moderate osteophytosis and facet arthrosis within the lumbar spine. The appearance of the lumbar spine is unchanged. Paravertebral soft tissues are unremarkable. IMPRESSION: No acute lumbar spine fracture or subluxation. ACT 112: Negative or not required by law. Electronically signed by: Tony Hilliard M.D. 02/20/2024 8:57 AM Dictated: 02/20/24 0854 Transcribed: 02/20/24 0854
--- NOTE | 2024-02-25 16:42 | Hospitalist Progress Note ---
Date of Service February 25, 2024 Assessment & Plan (1) Weakness: Plan: H/o of near-syncopal event 02/19- was walking for exercise and "crumbled" to the ground. No symptoms prior to the event to include chest pain/headache/dizziness, no loss of consciousness; witnessed by "friends" - Prior admission 03/10/2023- for strokelike symptoms as well as dizziness; diagnosed with benign positional vertigo and discharged on as ASA daily and meclizine - Hx TIA in 2019, remains on ASA 81mg daily - EKG with sinus rhythm, rates 80bpm. No troponin elevation - Imaging unremarkable including CXR, CT head, CT lumbar/cervical spine, venous Doppler - Echo w/o significant change, EF 60-65%, no wma. Mild cLVH, grade I diastolic dysfunction - Lumbar MRI ordered given left-sided radiculopathy > Showed moderate right-sided foraminal stenosis at L3-L4, but no high-grade central canal or foraminal narrowing > Ortho spine consulted -- no acute surgical interventions; suspect overall deconditioning is the source of her weakness. Recommend physical therapy focusing on bilateral lower extremity strengthening - TSH wnl 2.475 - Urine culture negative for acute infection - U liaison consulted/following -- prior titration of Seroquel did NOT make difference in her symptoms and remains on home psychiatric regimen Suspect deconditioning from repeat falls 2nd to orthostatic hypotension, neuropathy w/ low B12, constipation +/- UTI given complaints of dysuria on admission along with chronic lumbar stenosis contributing weakness with repeat falls at home Midodrine increased to 7.5mg TID for orthostatic hypotension and will continue to monitor - Dizziness improving and does NOT appear to be consistent with BPPV - While patient reports dizziness, her symptoms are weakness with standing - Meclizine discontinued as can make orthostasis worse - Continue PT/OT -- recommending rehab; referrals pending (2) Vitamin B12 deficiency: Plan: Vitamin B12 deficiency: - Checked this month and was LOW NORMAL at 190 -- IM while inpatient/PO at [place] planned Folate deficiency: - Obtained given underlying anemia - Folate low at 4.45, p.o. replacement started/should be continued at discharge PO iron on hold given constipation, +BM LARGE 02/21 but nothing further and additional enema for today/continue PO regimen and rec to increase ambulation (3) Schizoaffective disorder: Plan: Continue home clozapine, lamictal and seroquel [facility] liaison consulted/following CONTINUE SUPPORT, feeds on negativity at times and encouraged to stay positive (4) 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: Plan: Most recent A1C (12/04) at 6.3% SSI with target BSG range 110-180mg/dL, CF 45, no carb coverage -- adjust as needed On metformin 1000 mg daily (5) Calf swelling: Plan: Left calf size discrepancy compared to right calf, remains on asa 81mg daily. Venous doppler NEGATIVE monitor for repeat xray, prior injections provided in the past however no increased swelling on exam Plan Discontinued ceftriaxone given negative urine culture Chronic Stable Issues: - HLD- simvastatin 20 mg p.o. nightly - Neuropathic pain- gabapentin 300 mg p.o. nightly, B12 replacement as above - Chronic ROCIO- H&H on admission 10.4/32.9 (baseline hemoglobin 9-10, HCT 30- 34%), > takes ferrous sulfate 325 mg daily, place on hold for now given constipation > Ferritin level 54, can consider dose Venofer in AM to prevent need for PO at this time - Vit D deficiency- vitamin D3 25 mcg p.o. twice daily - GERD- omeprazole 40 mg p.o. every morning VTE prophylaxis: SCDs, Lovenox SQ added/continued CODE STATUS: Full code Dispo: pending rehabs referrals Admission and Anticipated Discharge Date Admission Date: February 22, 2024 Supervising Physician Co-Signing Physician Notes PA Supervision Note: I did not personally see or examine the patient today, but I verified all stacy points of RASHAD Mills's assessment and plan with the following exceptions/additions: None Subjective Patient seen and evaluated at bedside. She reports feeling tired today, but states her dizziness has improved. She notes her lower back pain is about the same as yesterday. She reports feeling less distended today as she had loose stools overnight. Denies any diarrhea today. We discussed the recommendations from Ortho with continuing physical therapy. Informed patient that her urine culture was negative and antibiotics have been stopped. Referrals to rehab are pending. No additional complaints or concerns at this time. Physical Exam Physical Exam: General: No acute distress, nondiaphoretic, well-developed, well-nourished. Right eye deviation at times. Skin: The skin was without rashes, erythema, edema, or bruising. Cardiac: Regular rate and rhythm without murmurs gallops or rubs. Pulm: Clear to auscultation bilaterally without wheezes, rales or rhonchi. No respiratory distress. 98% on room air. Abdominal: Soft, nontender, nondistended. Bowel sounds present. Neuro: A&O x3. No focal neurological deficits. MSK: Bilateral knee arthritis R>L with generalized weakness. Neuropathy in feet bilaterally (baseline). Results & Data Results & Data Vital Signs (Past 12 Hours) Vital Signs Temp Pulse Resp BP Pulse Ox O2 Del Method 02/25/24 14:27 98.6 F 70 18 126/80 98 Room Air 02/25/24 08:00 Room Air 02/25/24 07:38 97.9 F 79 18 96/60 L 99 Room Air Laboratory Results Reviewed CBC Reviewed BMP Reviewed urine culture PG Care Time/CCT Total # of Minutes Spent Total Time Spent with Patient: Total time spent is greater than 50% in coordination of care (as documented) at patient's floor/unit and/or counseling patient: Coding Level of Care Code 42449 SUB INP/OBS CARE 2/35MIN Diagnoses Weakness R53.1 Vitamin B12 deficiency E53.8 Schizoaffective disorder, bipolar type F25.0 Schizoaffective disorder type: bipolar 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 E11.319 Calf swelling M79.89 (3) Schizoaffective disorder Schizoaffective disorder type: bipolar Qualified Code(s): F25.0 - Schizoaffective disorder, bipolar type
--- NOTE | 2024-02-26 17:44 | Hospitalist Progress Note ---
Date of Service February 26, 2024 Assessment & Plan (1) Weakness: Plan: H/o of near-syncopal event 02/19- was walking for exercise and "crumbled" to the ground. No symptoms prior to the event to include chest pain/headache/dizziness, no loss of consciousness; witnessed by "friends" - Prior admission 03/10/2023- for strokelike symptoms as well as dizziness; diagnosed with benign positional vertigo and discharged on as ASA daily and meclizine - Hx TIA in 2019, remains on ASA 81mg daily - EKG with sinus rhythm, rates 80bpm. No troponin elevation - Imaging unremarkable including CXR, CT head, CT lumbar/cervical spine, venous Doppler - Echo w/o significant change, EF 60-65%, no wma. Mild cLVH, grade I diastolic dysfunction - Lumbar MRI ordered given left-sided radiculopathy > Showed moderate right-sided foraminal stenosis at L3-L4, but no high-grade central canal or foraminal narrowing > Ortho spine consulted -- no acute surgical interventions; suspect overall deconditioning is the source of her weakness. Recommend physical therapy focusing on bilateral lower extremity strengthening - TSH wnl 2.475 - Urine culture negative for acute infection - [facility] liaison consulted/following -- prior titration of Seroquel did NOT make difference in her symptoms and remains on home psychiatric regimen Suspect deconditioning from repeat falls 2nd to orthostatic hypotension, neuropathy w/ low B12, constipation +/- UTI given complaints of dysuria on admission along with chronic lumbar stenosis contributing weakness with repeat falls at home Midodrine increased to 7.5mg TID for orthostatic hypotension and will continue to monitor - Dizziness improving and does NOT appear to be consistent with BPPV - While patient reports dizziness, her symptoms are weakness with standing - Meclizine discontinued as can make orthostasis worse - Continue PT/OT -- recommending rehab; referrals pending (2) Vitamin B12 deficiency: Plan: Vitamin B12 deficiency: - Checked this month and was LOW NORMAL at 190 -- IM x 7 doses given/change to PO B12 Folate deficiency: - Obtained given underlying anemia - Folate low at 4.45, p.o. replacement started/should be continued at discharge PO iron on hold given constipation; continue bowel regimen (3) Schizoaffective disorder: Plan: Continue home clozapine, lamictal and seroquel [facility] liaison consulted/following CONTINUE SUPPORT, feeds on negativity at times and encouraged to stay positive (4) 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: Plan: Most recent A1C (12/04) at 6.3% SSI with target BSG range 110-180mg/dL, CF 45, no carb coverage -- adjust as needed On metformin 1000 mg daily (5) Calf swelling: Plan: Left calf size discrepancy compared to right calf, remains on asa 81mg daily. Venous doppler NEGATIVE monitor for repeat xray, prior injections provided in the past however no increased swelling on exam Plan Attempted to call patient's friend, Constance, with update but no answer and no voicemail box 02/24 and 02/25 Chronic Stable Issues: - HLD- simvastatin 20 mg p.o. nightly - Neuropathic pain- gabapentin 300 mg p.o. nightly, B12 replacement as above - Chronic ROCIO- H&H on admission 10.4/32.9 (baseline hemoglobin 9-10, HCT 30- 34%), > takes ferrous sulfate 325 mg daily, place on hold for now given constipation > Ferritin level 54, can consider dose Venofer in AM to prevent need for PO at this time - Vit D deficiency- vitamin D3 25 mcg p.o. twice daily - GERD- omeprazole 40 mg p.o. every morning VTE prophylaxis: SCDs, Lovenox SQ added/continued CODE STATUS: Full code Dispo: Accepted at [facility], waiting for available bed Admission and Anticipated Discharge Date Admission Date: February 22, 2024 Supervising Physician Co-Signing Physician Notes PA Supervision Note: I did not personally see or examine the patient today, but I verified all stacy points of RASHAD Mills's assessment and plan with the following exceptions/additions: None Subjective Patient seen and evaluated in bedside chair. She denies dizziness today, but does report persistent generalized weakness. She became tearful about getting close from home prior to discharge. She has been accepted at [facility], but we are waiting for a bed to become available. No orthostatic hypotension today. No additional complaints or concerns at this time. Physical Exam Physical Exam: General: No acute distress, nondiaphoretic, well-developed, well-nourished. Right eye deviation at times. Flat affect. Skin: The skin was without rashes, erythema, edema, or bruising. Cardiac: Regular rate and rhythm without murmurs gallops or rubs. Pulm: Clear to auscultation bilaterally without wheezes, rales or rhonchi. No respiratory distress. 97% on room air. Abdominal: Soft, nontender, nondistended. Bowel sounds present. Neuro: A&O x3. No focal neurological deficits. MSK: Bilateral knee arthritis R>L with generalized weakness. Neuropathy in feet bilaterally (baseline). Results & Data Results & Data Vital Signs (Past 12 Hours) Vital Signs Temp Pulse Resp BP Pulse Ox O2 Del Method 02/26/24 17:09 128/78 02/26/24 15:26 98.6 F 75 18 126/80 97 Room Air 02/26/24 12:32 74 120/78 02/26/24 07:28 97.5 F L 65 16 135/78 94 Room Air PG Care Time/CCT Total # of Minutes Spent Total Time Spent with Patient: Total time spent is greater than 50% in coordination of care (as documented) at patient's floor/unit and/or counseling patient: Coding Level of Care Code 36342 SUB INP/OBS CARE 2/35MIN Diagnoses Weakness R53.1 Vitamin B12 deficiency E53.8 Schizoaffective disorder, bipolar type F25.0 Schizoaffective disorder type: bipolar 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 E11.319 Calf swelling M79.89 (3) Schizoaffective disorder Schizoaffective disorder type: bipolar Qualified Code(s): F25.0 - Schizoaffective disorder, bipolar type
[2024-02-27] MEDS: CYANOCOBALAMIN (B-12) 500 MCG TABLET PO SCH (08:51)
[2024-02-27 10:02] LABS: Basophils # (auto) 0.03 K/uL (0.00-0.20); Basophils % (auto) 0.7 %; Eosinophils # (auto) 0.09 K/uL (0.00-0.50); Hematocrit (blood only) 32.1 % (37.0-47.0); Hemoglobin 10.2 g/dl (12.0-16.0); Immature Granulocytes # (auto) 0.03 K/uL (0.01-0.20); Immature Granulocytes % (auto) 0.7 %; Lymphocytes % (auto) 19.6 %; Mean Corpuscular Hemoglobin 30.2 pg (25.0-34.0); Mean Corpuscular Hgb Conc 31.8 g/dL (32.0-36.0); Mean Platelet Volume 9.8 fL (9.4-12.4); Monocytes # (auto) 0.32 K/uL (0.11-0.59); Neutrophils # (auto) 3.23 K/uL (1.40-6.50); Platelet Count 240 K/uL (130-400); RDW Coefficient of Variation 14.1 % (11.5-14.5); RDW Standard Deviation 48.8 fL (36.4-46.3); Red Blood Count 3.38 M/uL (4.20-5.40)
--- NOTE | 2024-02-27 15:42 | Hospitalist Progress Note ---
Date of Service February 27, 2024 Assessment & Plan (1) Weakness: Plan: H/o of near-syncopal event 02/19- was walking for exercise and "crumbled" to the ground. No symptoms prior to the event to include chest pain/headache/dizziness, no loss of consciousness; witnessed by "friends" - Prior admission 03/10/2023- for strokelike symptoms as well as dizziness; diagnosed with benign positional vertigo and discharged on as ASA daily and meclizine - Hx TIA in 2019, remains on ASA 81mg daily - EKG with sinus rhythm, rates 80bpm. No troponin elevation - Imaging unremarkable including CXR, CT head, CT lumbar/cervical spine, venous Doppler - Echo w/o significant change, EF 60-65%, no wma. Mild cLVH, grade I diastolic dysfunction - Lumbar MRI ordered given left-sided radiculopathy > Showed moderate right-sided foraminal stenosis at L3-L4, but no high-grade central canal or foraminal narrowing > Ortho spine consulted -- no acute surgical interventions; suspect overall deconditioning is the source of her weakness. Recommend physical therapy focusing on bilateral lower extremity strengthening - TSH wnl 2.475 - Urine culture negative for acute infection - U liaison consulted/following -- prior titration of Seroquel did NOT make difference in her symptoms and remains on home psychiatric regimen Suspect deconditioning from repeat falls 2nd to orthostatic hypotension, neuropathy w/ low B12, constipation +/- UTI given complaints of dysuria on admission along with chronic lumbar stenosis contributing weakness with repeat falls at home Midodrine increased to 7.5mg TID for orthostatic hypotension and will continue to monitor - Dizziness improving and does NOT appear to be consistent with BPPV - While patient reports dizziness, her symptoms are weakness with standing - Meclizine discontinued as can make orthostasis worse - Continue PT/OT -- recommending rehab; accepted at [facility], waiting for available bed (2) Vitamin B12 deficiency: Plan: Vitamin B12 deficiency: - Checked this month and was LOW NORMAL at 190 -- IM x 7 doses given/change to PO B12 Folate deficiency: - Obtained given underlying anemia - Folate low at 4.45, p.o. replacement started/should be continued at discharge PO iron on hold given constipation; continue bowel regimen (3) Schizoaffective disorder: Plan: Continue home clozapine, lamictal and seroquel U liaison consulted/following CONTINUE SUPPORT, feeds on negativity at times and encouraged to stay positive (4) 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: Plan: Most recent A1C (12/04) at 6.3% SSI with target BSG range 110-180mg/dL, CF 45, no carb coverage -- adjust as needed On metformin 1000 mg daily (5) Calf swelling: Plan: Left calf size discrepancy compared to right calf, remains on asa 81mg daily. Venous doppler NEGATIVE monitor for repeat xray, prior injections provided in the past however no increased swelling on exam Plan Updated friend at bedside Chronic Stable Issues: - HLD- simvastatin 20 mg p.o. nightly - Neuropathic pain- gabapentin 300 mg p.o. nightly, B12 replacement as above - Chronic ROCIO- H&H on admission 10.4/32.9 (baseline hemoglobin 9-10, HCT 30- 34%), > takes ferrous sulfate 325 mg daily, place on hold for now given constipation > Ferritin level 54, can consider dose Venofer - Vit D deficiency- vitamin D3 25 mcg p.o. twice daily - GERD- omeprazole 40 mg p.o. every morning VTE prophylaxis: SCDs, Lovenox SQ added/continued CODE STATUS: Full code Dispo: Accepted at [facility], waiting for available bed Admission and Anticipated Discharge Date Admission Date: February 22, 2024 Supervising Physician Co-Signing Physician Notes RASHAD Supervision Note: I did not personally see or examine the patient today, but I verified all stacy points of RASHAD Mills's assessment and plan with the following exceptions/additions: None Subjective Patient seen and evaluated in bedside chair with friend present. She reports feeling well at this time. She does report some disappointment about not doing as well with PT earlier as she has been. She denies any acute complaints at this time. Continue to wait for a bed to become available at [facility]. Physical Exam Physical Exam: General: No acute distress, nondiaphoretic, well-developed, well-nourished. Right eye deviation at times. Flat affect. Skin: The skin was without rashes, erythema, edema, or bruising. Cardiac: Regular rate and rhythm without murmurs gallops or rubs. Pulm: Clear to auscultation bilaterally without wheezes, rales or rhonchi. No respiratory distress. 97% on room air. Abdominal: Soft, nontender, nondistended. Bowel sounds present. Neuro: A&O x3. No focal neurological deficits. MSK: Bilateral knee arthritis R>L with generalized weakness. Neuropathy in feet bilaterally (baseline). Results & Data Results & Data Vital Signs (Past 12 Hours) Vital Signs Temp Pulse Resp BP BP Pulse Ox O2 Del Method 02/27/24 14:45 97.7 F 73 16 131/85 97 Room Air 02/27/24 11:57 101/64 02/27/24 08:50 119/79 02/27/24 08:18 97.7 F 66 16 121/76 94 Room Air Laboratory Results Reviewed CBC PG Care Time/CCT Total # of Minutes Spent Total Time Spent with Patient: Total time spent is greater than 50% in coordination of care (as documented) at patient's floor/unit and/or counseling patient: Coding Level of Care Code 71037 SUB INP/OBS CARE 2/35MIN Diagnoses Weakness R53.1 Vitamin B12 deficiency E53.8 Schizoaffective disorder, bipolar type F25.0 Schizoaffective disorder type: bipolar 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 E11.319 Calf swelling M79.89 (3) Schizoaffective disorder Schizoaffective disorder type: bipolar Qualified Code(s): F25.0 - Schizoaffective disorder, bipolar type
--- NOTE | 2024-02-28 13:43 | Hospitalist Progress Note ---
Date of Service February 28, 2024 Assessment & Plan (1) Weakness: Plan: H/o of near-syncopal event 02/19- was walking for exercise and "crumbled" to the ground. No symptoms prior to the event to include chest pain/headache/dizziness, no loss of consciousness; witnessed by "friends" - Prior admission 03/10/2023- for strokelike symptoms as well as dizziness; diagnosed with benign positional vertigo and discharged on as ASA daily and meclizine - Hx TIA in 2019, remains on ASA 81mg daily - EKG with sinus rhythm, rates 80bpm. No troponin elevation - Imaging unremarkable including CXR, CT head, CT lumbar/cervical spine, venous Doppler - Echo w/o significant change, EF 60-65%, no wma. Mild cLVH, grade I diastolic dysfunction - Lumbar MRI ordered given left-sided radiculopathy > Showed moderate right-sided foraminal stenosis at L3-L4, but no high-grade central canal or foraminal narrowing > Ortho spine consulted -- no acute surgical interventions; suspect overall deconditioning is the source of her weakness. Recommend physical therapy focusing on bilateral lower extremity strengthening - TSH wnl 2.475 - Urine culture negative for acute infection - U liaison consulted/following -- prior titration of Seroquel did NOT make difference in her symptoms and remains on home psychiatric regimen Suspect deconditioning from repeat falls 2nd to orthostatic hypotension, neuropathy w/ low B12, constipation +/- UTI given complaints of dysuria on admission along with chronic lumbar stenosis contributing weakness with repeat falls at home Midodrine increased to 7.5mg TID for orthostatic hypotension and will continue to monitor - Dizziness improving and does NOT appear to be consistent with BPPV - While patient reports dizziness, her symptoms are weakness with standing - Meclizine discontinued as can make orthostasis worse - Continue PT/OT -- recommending rehab; accepted at [facility], waiting for available bed (2) Vitamin B12 deficiency: Plan: Vitamin B12 deficiency: - Low normal at 190 -- continue daily cyanocobalamin supplementation at discharge Folate deficiency: - Obtained given underlying anemia - Folate low at 4.45, p.o. replacement started/should be continued at discharge PO iron on hold given constipation; continue bowel regimen (3) Schizoaffective disorder: Plan: Continue home clozapine, lamictal and seroquel [facility] liaison consulted/following CONTINUE SUPPORT, feeds on negativity at times and encouraged to stay positive (4) 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: Plan: Most recent A1C (12/04) at 6.3% SSI with target BSG range 110-180mg/dL, CF 45, no carb coverage -- adjust as needed On metformin 1000 mg daily (5) Calf swelling: Plan: Left calf size discrepancy compared to right calf, remains on asa 81mg daily. Venous doppler NEGATIVE monitor for repeat xray, prior injections provided in the past however no increased swelling on exam Plan Consulted [facility] Chronic Stable Issues: - HLD- simvastatin 20 mg p.o. nightly - Neuropathic pain- gabapentin 300 mg p.o. nightly, B12 replacement as above - Chronic ROCIO- H&H on admission 10.4/32.9 (baseline hemoglobin 9-10, HCT 30- 34%), > takes ferrous sulfate 325 mg daily, place on hold for now given constipation > Ferritin level 54, can consider dose Venofer - Vit D deficiency- vitamin D3 25 mcg p.o. twice daily - GERD- omeprazole 40 mg p.o. every morning VTE prophylaxis: SCDs, Lovenox SQ added/continued CODE STATUS: Full code Dispo: Accepted at [facility], waiting for available bed Admission and Anticipated Discharge Date Admission Date: February 22, 2024 Supervising Physician Co-Signing Physician Notes RASHAD Supervision Note: I did not personally see or examine the patient today, but I verified all stacy points of RASHAD Mills's assessment and plan with the following exceptions/additions: None Subjective Patient seen and evaluated in bedside chair. She reports feeling tired today but denies any dizziness. She became tearful during our conversation, expression disappointment in not going to [facility] today and wishing her friends could visit her. [facility]. Discussed still waiting for bed to become available at [facility], possibly over the weekend. She states she still wants to go to rehab and she doesn't feel strong enough to return home right from the hospital. No additional complaints or concerns at this time. Physical Exam Physical Exam: General: No acute distress, nondiaphoretic, well-developed, well-nourished. Right eye deviation at times. Flat affect. Skin: The skin was without rashes, erythema, edema, or bruising. Cardiac: Regular rate and rhythm without murmurs gallops or rubs. Pulm: Clear to auscultation bilaterally without wheezes, rales or rhonchi. No respiratory distress. 98% on room air. Abdominal: Soft, nontender, nondistended. Bowel sounds present. Neuro: A&O x3. No focal neurological deficits. MSK: Bilateral knee arthritis R>L with generalized weakness. Neuropathy in feet bilaterally (baseline). Results & Data Results & Data Vital Signs (Past 12 Hours) Vital Signs Temp Pulse Resp BP Pulse Ox O2 Del Method 02/28/24 08:16 97.7 F 70 16 117/76 98 Room Air 02/28/24 07:35 Room Air PG Care Time/CCT Total # of Minutes Spent Total Time Spent with Patient: Total time spent is greater than 50% in coordination of care (as documented) at patient's floor/unit and/or counseling patient: Coding Level of Care Code 68286 SUB INP/OBS CARE 2/35MIN Diagnoses Weakness R53.1 Vitamin B12 deficiency E53.8 Schizoaffective disorder, bipolar type F25.0 Schizoaffective disorder type: bipolar 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 E11.319 Calf swelling M79.89 (3) Schizoaffective disorder Schizoaffective disorder type: bipolar Qualified Code(s): F25.0 - Schizoaffective disorder, bipolar type
[2024-02-29 08:07] VITALS: RESP 16
[2024-02-29] MEDS: DOCUSATE SODIUM/SENNA 50/8.6MG TAB PO ONE (08:55)
[2024-02-29 12:32] VITALS: BP 107/72; PULSE 76; TEMP 97.7; O2SAT 96
--- NOTE | 2024-02-29 12:38 | Discharge Summary ---
Discharge Summary Date of Service February 29, 2024 Principal Dx & Hospital Course #1 = Principal Diagnosis (1) Weakness: H/o of near-syncopal event 02/19- was walking for exercise and "crumbled" to the ground. No symptoms prior to the event to include chest pain/headache/dizziness, no loss of consciousness; witnessed by "friends" - Prior admission 03/10/2023- for strokelike symptoms as well as dizziness; diagnosed with benign positional vertigo and discharged on as ASA daily and meclizine - Hx TIA in 2018, remains on ASA 81mg daily - EKG with sinus rhythm, rates 80bpm. No troponin elevation - Imaging unremarkable including CXR, CT head, CT lumbar/cervical spine, venous Doppler - Echo w/o significant change, EF 60-65%, no wma. Mild cLVH, grade I diastolic dysfunction - Lumbar MRI ordered given left-sided radiculopathy > Showed moderate right-sided foraminal stenosis at L3-L4, but no high-grade central canal or foraminal narrowing > Ortho spine consulted -- no acute surgical interventions; suspect overall d econditioning is the source of her weakness. Recommend physical therapy focusing on bilateral lower extremity strengthening - TSH wnl 2.475 - Urine culture negative for acute infection - U liaison consulted/following -- prior titration of Seroquel did NOT make difference in her symptoms and remains on home psychiatric regimen Suspect deconditioning from repeat falls 2nd to orthostatic hypotension, neuropathy w/ low B12, constipation +/- UTI given complaints of dysuria on admission along with chronic lumbar stenosis contributing weakness with repeat falls at home Midodrine increased to 7.5mg TID for orthostatic hypotension and will continue to monitor - Dizziness improving and does NOT appear to be consistent with BPPV - While patient reports dizziness, her symptoms are weakness with standing - Meclizine discontinued as can make orthostasis worse Discharged to [facility] 02/28 (2) Vitamin B12 deficiency: Vitamin B12 deficiency: - Low normal at 190 -- continue daily cyanocobalamin supplementation at discharge Folate deficiency: - Obtained given underlying anemia - Folate low at 4.45, p.o. replacement started/continued at discharge PO iron on hold given constipation; continue bowel regimen (3) Schizoaffective disorder: Continue home clozapine, lamictal and seroquel U liaison consulted/following CONTINUE SUPPORT, feeds on negativity at times and encouraged to stay positive (4) 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: Most recent A1C (12/04) at 6.3% SSI with target BSG range 110-180mg/dL, CF 45, no carb coverage -- adjust as needed On metformin 1000 mg daily (5) Calf swelling: Left calf size discrepancy compared to right calf, remains on asa 81mg daily. Venous doppler NEGATIVE Plan Chronic Stable Issues: - HLD- simvastatin 20 mg p.o. nightly - Neuropathic pain- gabapentin 300 mg p.o. nightly, B12 replacement as above - Chronic ROCIO- H&H on admission 10.4/32.9 (baseline hemoglobin 9-10, HCT 30- 34%), > takes ferrous sulfate 325 mg daily, held due to constipation - Vit D deficiency- vitamin D3 25 mcg p.o. twice daily - GERD- omeprazole 40 mg p.o. every morning VTE prophylaxis: SCDs, Lovenox SQ added/continued CODE STATUS: Full code Notes For Next Care Provider Monitor BP and symptom response to meclizine Monitor B12 and folate supplementation Optimize bowel regimen given ongoing constipation Medication Changes From Visit Started B12 and folate supplements Held iron supplement Discontinued meclizine Started midodrine Admission HPI Per Admitting Provider 63-year-old female presenting for recent fall and associated chronic dizziness. ED course: CBC- H&H 10./32.9, MCHC 31.6, RDW 49; CMP-BUN 25, BUN/creatinine ratio 20.7, glucose 106, globulin 1.9; pending UA; calcium 9.5.; CXR without acute cardiopulmonary findings, no change in appearance of the chest; head CT, cervical spine CT, lumbar spine CT without acute intracranial abnormality, without acute spine fracture or subluxation, without acute lumbar spine fracture or subluxation.; EKG appearing normal sinus rate around 80. Provided with 1 L NSS, meclizine 25 mg, ketorolac 10 mg in ED. Evaluated in ED 02/10- s/p fall with head and neck discomfort; elevated white count, anemic, CT was WNL, troponin negative. Was ultimately discharged from ED to follow-up with PCP. Patient is a 63-year-old female with PMHx schizoaffective disorder, T2DM, hypothyroidism, HLD, vitamin D and vitamin B12 deficiency, and chronic dizziness presenting for recent fall. Patient states that earlier today she was walking for exercise and noted that she just ended up on the ground. States that friends witnessed this, but she did not lose consciousness. States that this has been an ongoing problem, occurring last week where she was evaluated in the ED for similar symptoms. States that she might of hit her head but is unsure. Did not have any symptoms prior to the fall, just felt that she crumpled to the ground. No chest pain, shortness of breath, tinnitus. Unable to describe the dizziness that she experiences. Does take meclizine twice a day on a regular basis. Has also been experiencing dysuria for an unknown amount of time. Deny ing fever/chills, abdominal pain, N/B/D/C, numbness/tingling, or additional LUTS. Prior history of strokes, states this does not feel the same. States residual symptoms of stroke is minimal right-sided facial droop. Please see Dr. Henry's attestation for adjustments/additions to treatment plan. Discharge Exam General: No acute distress, nondiaphoretic, well-developed, well-nourished. Right eye deviation at times. Flat affect. Skin: The skin was without rashes, erythema, edema, or bruising. Cardiac: Regular rate and rhythm without murmurs gallops or rubs. Pulm: Clear to auscultation bilaterally without wheezes, rales or rhonchi. No respiratory distress. 96% on room air. Abdominal: Soft, nontender, nondistended. Bowel sounds present. Neuro: A&O x3. No focal neurological deficits. MSK: Bilateral knee arthritis R>L with generalized weakness. Neuropathy in feet bilaterally (baseline). Discharge Plan Discharge Items Patient Disposition: Transfer Inpatient Rehab Fac Reason For Visit: DIZZINESS, ORTHOSTATIC HYPOTENSION Discharge Diagnosis: Orthostatic hypotension, vitamin B12 deficiency, folate deficiency, generalized weakness Activity: As commented below Activity Comment: Follow recommendations on discharge from [facility] Non-emergency contact: Primary Care Provider Call non-emergency contact if: you have any medication questions Follow-up/Referrals: Hillary Clarke MD [Primary Care Provider] - (Follow-up in 1-2 weeks after discharge from [facility]) Diet: Carb Consistent or DM2 Addtl Attending Provider Instructions: Farrah, Sebas were admitted to the hospital for dizziness and weakness. You had an extensive workup including cardiac enzymes, chest x-ray, head CT, lumbar/cervical spine CT, venous dopplers, echocardiogram, and overnight oximetry study. Your cardiac enzymes and imaging were normal. Your echocardiogram showed normal pumping function without significant valvular heart disease, but does make comment about abnormal relaxation which could be related to underlying sleep apnea. We checked a test of your oxygen when sleeping (overnight oximetry study) and this showed 4 desaturation events overnight. > Please have your formal sleep study with Dr. Ward (lung doctor) as previously discussed as sleep apnea can lead to increased fatigue, daytime sleepiness, and heart failure/atrial fibrillation if you have this and leave it untreated. I suspect drops in your blood pressure with standing and causing dizziness/weakness is from a combination of your medication with MECLIZINE for vertigo with your psychiatric medications. We have obtained continued orthostatic vital sign monitoring and started you on a medication called MIDODRINE which has helped prevent these drops in your blood pressure. We also found some nutritional deficiencies and started supplementation which will be continued on discharge as well. You are being discharged to [facility] for rehab. Upon discharge from the hospital: * Continue midodrine 7.5 mg 3 times daily. This is to treat your orthostatic low blood pressure. * Continue B12 supplementation daily. * Continue folic acid supplementation daily. * Continue your bowel regimen. Goal is to have 1-2 soft formed bowel movements daily. * Hold your iron supplementation until your bowel regimen has been optimized as this can cause constipation. * Follow-up with your PCP in 1-2 weeks after discharge from [facility]. It was a pleasure taking care of you while you were in the hospital, Deborah Mills PA-C Pending Studies at Discharge: No Stand-Alone Forms: My [facility] [address] Skilled Items Patient informed of condition?: Yes DNR: No Discharge Level of Care: Acute rehab Communicable Disease: No Discharge Prognosis: Stable Lines: None Urinary Catheter: No Medications and DC Order Prescriptions: New bisacodyl 10 mg Suppository 10 mg MN DAILY PRN (Reason: constipation) Qty: 5 0RF midodrine 2.5 mg Tablet 7.5 mg PO TID@0800,1200,1700 Qty: 90 0RF cyanocobalamin (vitamin B-12) 500 mcg Tablet 500 mcg PO QAM Qty: 30 0RF folic acid 1 mg Tablet 1 mg PO QAM Qty: 30 0RF Continued lamotrigine [Lamictal] 200 mg tablet 200 mg PO BID aspirin [Enteric Coated Aspirin] 81 mg tablet,delayed release (DR/EC) 81 mg PO QAM Qty: 90 3RF omeprazole 20 mg capsule,delayed release(DR/EC) 40 mg PO QAM 90 Days Qty: 180 2RF rosuvastatin 20 mg tablet 20 mg PO HS Qty: 90 2RF cholecalciferol (vitamin D3) 25 mcg (1,000 unit) tablet 25 mcg PO BID 90 Days Qty: 180 3RF metformin 500 mg tablet extended release 24 hr 1,000 mg PO QAM Qty: 180 3RF acetaminophen [Tylenol Extra Strength] 500 mg tablet 1,000 mg PO TID PRN (Reason: Mild Pain (Scale Score 1-4)) Rx Instructions: Unable to verify OTC meds at this date/time. quetiapine [Seroquel] 300 mg tablet 300 mg PO HS clozapine 50 mg tablet 50 mg PO BID Qty: 14 0RF Rx Instructions: TOTAL DOSE 150 MG QAM, THEN 350 MG AT HS. clozapine 100 mg Tablet 300 mg PO HS Rx Instructions: TOTAL DOSE 350 MG--TAKES WITH 50 MG TAB. clozapine 100 mg tablet 100 mg PO QAM Qty: 7 0RF Rx Instructions: TOTAL DOSE 150 MG--TAKES WITH 50 MG TAB. polyethylene glycol 3350 [Miralax] 17 gram/dose powder 17 g PO DAILY PRN (Reason: constipation) Qty: 119 0RF Rx Instructions: Unable to verify OTC meds at this date/time. quetiapine 100 mg Tablet 100 mg PO QAM levothyroxine 150 mcg tablet 150 mcg PO QAM gabapentin [Neurontin] 300 mg capsule 300 mg PO HS Held ferrous sulfate [Iron (ferrous sulfate)] 325 mg (65 mg iron) tablet 325 mg PO DAILY Qty: 30 0RF Hold Instructions: Resume on 03/02/24. Hold due to constipation; can resume once bowel regimen is optimized Rx Instructions: Unable to verify OTC meds at this date/time. Discontinued meclizine 25 mg tablet 50 mg PO QAM Discharge Orders: Discharge Order (Routine); Ordered 02/29/24 Ordered By: Deborah Mills Admission Data Admit Date/Time: 02/22/24 13:13 Attending Provider: Gillian Allen Admit Provider: Sj Posada Primary Care Provider: Hillary Clarke Other Providers: David Henry; [facility]; [facility]; [facility]; [place],[facility]; [facility] Stay Data Consultations 02/20/24 09:51 ED Decision to Admit Stat 02/20/24 23:29 Consult Behavioral Health Liaison Routine 02/24/24 16:36 Consult Orthopedic Spine Surgery Routine Diagnostic Imagining Performed 02/20/24 08:12 CT head/brain wo con Stat 02/20/24 08:18 CT cervical spine wo con Stat CT lumbar spine wo con Stat 02/20/24 10:21 US venous doppler LE LT Urgent 02/24/24 09:22 MRI Lumbar Spine [MR lumbar spine wo con] Routine Pending Results Patient Have Any Pending Studies at Discharge: No Discharge Instructions Given to Patient (Per Discharging Provider) Farrah, You were admitted to the hospital for dizziness and weakness. You had an extensive workup including cardiac enzymes, chest x-ray, head CT, lumbar/cervical spine CT, venous dopplers, echocardiogram, and overnight oximetry study. Your cardiac enzymes and imaging were normal. Your echocardiogram showed normal pumping function without significant valvular heart disease, but does make comment about abnormal relaxation which could be related to underlying sleep apnea. We checked a test of your oxygen when sleeping (overnight oximetry study) and this showed 4 desaturation events overnight. > Please have your formal sleep study with Dr. Ward (lung doctor) as prev iously discussed as sleep apnea can lead to increased fatigue, daytime sleepiness, and heart failure/atrial fibrillation if you have this and leave it untreated. I suspect drops in your blood pressure with standing and causing dizziness/weakness is from a combination of your medication with MECLIZINE for vertigo with your psychiatric medications. We have obtained continued orthostatic vital sign monitoring and started you on a medication called MIDODRINE which has helped prevent these drops in your blood pressure. We also found some nutritional deficiencies and started supplementation which will be continued on discharge as well. You are being discharged to [facility] for rehab. Upon discharge from the hospital: * Continue midodrine 7.5 mg 3 times daily. This is to treat your orthostatic low blood pressure. * Continue B12 supplementation daily. * Continue folic acid supplementation daily. * Continue your bowel regimen. Goal is to have 1-2 soft formed bowel movements daily. * Hold your iron supplementation until your bowel regimen has been optimized as this can cause constipation. * Follow-up with your PCP in 1-2 weeks after discharge from [facility]. It was a pleasure taking care of you while you were in the hospital, Deborah Mills PA-C Supervising Physician Co-Signing Physician Notes PA Supervision Note: I personally saw and examined the patient. I verified all stacy points and agree with RASHAD Mills with the following exceptions and/or additions: S-Pt feeling well, no dizziness. Working on getting bowels moving. O- Vitals reviewed Gen: [AAOx3, NAD] HEENT: [anicteric sclerae, EOMI] CV: [RRR no mgr nl S1S2] Pulm: [CTAB no wcr] Abd: [+BS soft NT ND no masses or hernias] A/P-63 yo female here with falls, orthostasis, improved with midodrine. Likely secondary to multiple psych meds that can contribute to orthostasis stable for dc to rehab, continue bowel regimen Total Time Total Time Spent Total Time Spent (In Minutes): Greater than 30 minutes spent completing this discharge process including direct patient care, medication reconciliation, documentation, review of labs and images, and coordination of care. Coding Level of Care Code 96190 INP/OBS DISCH >30 MIN Diagnoses Weakness R53.1 Vitamin B12 deficiency E53.8 Schizoaffective disorder, bipolar type F25.0 Schizoaffective disorder type: bipolar 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 E11.319 Calf swelling M79.89
== END 2024-02-29 14:40 | DRG 312 ==
LOC: ED 08:05 → EDINP 08:05 → SUATTDRO 10:21 → 3W 13:40 → SUATTDRO 02-22 13:13

== ENCOUNTER 2024-09-27 11:39 | Observation (INO) ==
--- NOTE | 2024-09-27 11:49 | Emergency Department Note ---
Impression & Plan Dizziness, Anemia, Fall, Low T4, Venous stasis dermatitis of both lower extremities ED Provider Note NAME: PAMELA HERRERA AGE: 63 SEX: F : 1960 ARRIVES VIA: Ambulance INFORMANT: Patient, ED PROVIDER(S): Carter Rosales MD CHIEF COMPLAINT: Dizziness MEDICAL DECISION MAKING: Patient presents due to concern for dizziness. IV was established and blood work was obtained. Patient with left greater than light [place] lower extremity swelling so DVT ultrasound ordered along with a chest x-ray. Next Patient did receive 500 of IV fluids initially. Patient with a normal white count hemoglobin 11.2 with normal platelet count kidney function unremarkable. TSH is elevated and slightly low free T4 although borderline. Urinalysis negative for blood or infection. The patient's DVT ultrasound negative for DVT. Patient's chest x-ray is unremarkable. I did reevaluate the patient was concerned about her walking and possibility of risk of fall. Patient does live by herself and does have mental health issues. I did speak the on-call hospitalist service Dr. Chan and the patient was admitted to the medicine service. Discussion w/ other healthcare providers: Dr. Chan inpatient medicine service Prior /Outside records reviewed: none Differential diagnosis: Benign positional vertigo, dehydration, hypovolemia, anemia, infection, hypoglycemia, electrolyte abnormalities, arrhythmia, tox among others were considered. Diagnostics, as interpreted by me: ECG: Normal sinus rhythm, rate of 78, normal intervals, normal axis no ST elevations no significant change for comparison February 20, 2024 Cardiac monitoring: An order was placed for continuous cardiac monitoring. The monitor shows a rate of 77 with sinus rhythm. Patient was placed on pulse oximetry Medical decision rules: none Imaging studies: I informally interpreted the patient's chest x-ray does not show obvious pneumonia or pneumothorax with formal report to follow. HPI: Patient presents due to concern for dizziness weakness and fatigue. The patient reportedly was up this morning was feeling unwell a neighbor checked on her give her some orange juice called the EMS as the patient was feeling dizzy and was having difficulty at home. Patient does admit to decreased appetite. Known history of mental health issues but is compliant with medications although did not take them this morning. EMS reported blood sugar was in the 1 teens. Patient states that she was dizzy and did have a fall this morning but fell to her buttocks. No head strike or LOC. Patient does not take blood thinning medications. She denies any pain. No vomiting or diarrhea. Patient reports that the swelling is new. PAST MEDICAL HISTORY: See Below PAST SURGICAL HISTORY: See Below SOCIAL HISTORY: See Below HOME MEDICATIONS: See Below ALLERGIES: See Below VITALS: See Below PHYSICAL EXAMINATION: GENERAL: NAD, non-toxic. Wearing glasses. EYE EXAM: Normal conjunctiva. PERRL, no anisocoria and EOM's grossly intact w/o pain. OROPHARYNX: Moist mucus membranes, grossly normal dentition. NECK: Trachea midline, no stridor. LUNGS: Clear to auscultation. Normal chest wall mechanics. HEART: NSR, no MRG. ABDOMEN: Abdomen soft, non-tender, no masses, no rebound or guarding. BACK: No CVA TTP. SKIN: No rashes and no bruising. UPPER EXTREMITIES: Upper extremities are grossly normal. LOWER EXTREMITIES: Grossly normal, left greater than right lower extremity pitting edema without calf pain or erythema. NEURO EXAM: Awake and alert, follows commands, no obvious facial asymmetry, normal speech, moves all 4 extremities. Past Med/Surg History Problem List (Updated 09/28/24 @ 08:44 by Carter Rosales MD) Venous stasis dermatitis of both lower extremities (Acute) Low T4 (Acute) Fall (Acute) Anemia (Acute) Dizziness (Acute) Urine incontinence Tremor Esophageal dysmotility Abnormal CT scan, chest Bed sore Knee pain Hypoglycemia Folate deficiency Orthostatic hypotension Weakness (Acute) Vitamin B12 deficiency Fall (Acute) Severe morning sleep inertia Multiple pulmonary nodules determined by computed tomography of lung Anemia (Acute) Schizoaffective disorder (Chronic) Neuropathic pain Enuresis, nocturnal only Iron deficiency anemia Osteoarthritis of right knee Drug-induced parkinsonism Vitamin D deficiency Bilateral lumbar radiculopathy (Acute) Cataract (Acute) Gait instability (Acute) Hypertension (Acute) 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 Hypothyroidism Hyperlipidemia Dizziness (Chronic) Medical History AMS (altered mental status) Calf swelling Schizoaffective disorder Multiple pulmonary nodules pt unsure Helioensky Hypothyroidism HTN (hypertension) Hyperlipidemia Drug-induced parkinsonism pt unsure - sometimes has tremors Dizziness Type 2 diabetes mellitus Cataract Bilateral Anemia Pneumonia Currently on 3x antibiotics for 10 days - Thee - pt denies symptoms "was just found on CT scan" Anxiety Poor historian Hx of diverticulitis of colon History of colon polyps Brain TIA unsure "2019 maybe, not sure" Depression Frequent falls most recent 01/09/24 [facility] Chronic back pain GERD (gastroesophageal reflux disease) Asthma inhaler prn Constipation Surgical History History of removal of cyst benign cyst removed right breast History of colonoscopy History of tooth extraction all teeth removed History of tonsillectomy and adenoidectomy Family History Grandmother (Paternal) Diabetes Grandmother (Maternal) Diabetes Mother Anemia Bipolar disorder Cardiomyopathy Coronary heart disease Father Diabetes FH: kidney cancer Other No family history of adverse response to anesthesia Parkinson disease Parkinsonian syndrome Social History Smoking Status: Never smoker Second Hand Exposure: No; Do You Dip or Chew Tobacco: No; Hx Alcohol Use: No Hx Substance Use: No Preferred Language: Slovenian Communication Ability: Effective Visual Impairment: No Limitations 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 Beliefs That Will Affect Care: None marital status: Single Current Living Situation: Alone Current Living Situation Comment: Lives alone and does not want to continue to live by herself Feels Safe at Home: Yes Gender Identity: Female Assistive Devices: Walker Allergies Allergies Allergy/AdvReac Type Severity Reaction Status Date / Time lithium Allergy Unknown Unknown Verified 07/13/24 13:58 escitalopram AdvReac Severe Manic Verified 07/13/24 13:58 haloperidol AdvReac Intermediate dystonia Verified 07/13/24 13:58 Penicillins AdvReac Intermediate Gastrointestinal Verified 07/13/24 13:58 Upset valproic acid AdvReac Intermediate Leg Verified 07/13/24 13:58 Swelling Home Meds Home Medications Medication Instructions Recorded Confirmed clozapine 100 mg tablet 300 mg PO HS 01/28/18 09/27/24 lamotrigine 200 mg tablet 200 mg PO BID 02/25/23 09/27/24 (Lamictal) quetiapine 300 mg tablet (Seroquel) 300 mg PO HS 02/27/23 09/27/24 gabapentin 300 mg capsule 300 mg PO HS 01/17/24 09/27/24 (Neurontin) quetiapine 100 mg tablet 100 mg PO QAM 01/17/24 09/27/24 clozapine 100 mg tablet 200 mg PO QAM 09/27/24 09/27/24 clozapine 50 mg tablet 50 mg PO UD 09/27/24 09/27/24 Previous Rx's Medication Instructions Recorded polyethylene glycol 3350 17 17 g PO DAILY PRN constipation 12/20/22 gram/dose oral powder (Miralax) #119 grams cholecalciferol (vitamin D3) 25 25 mcg PO BID 90 days #180 tabs 02/07/24 mcg (1,000 unit) tablet metformin 500 mg tablet,extended 1,000 mg (2 x 500 mg) PO QAM #180 02/10/24 release 24 hr tabs ferrous sulfate 325 mg (65 mg 325 mg PO DAILY #30 tabs 02/19/24 iron) tablet (Iron (ferrous sulfate)) acetaminophen 325 mg tablet 650 mg (2 x 325 mg) PO Q8 PRN pain 03/11/24 #240 tabs folic acid 1 mg tablet 1 mg PO QAM #30 tabs 03/11/24 omeprazole 20 mg capsule,delayed 40 mg (2 x 20 mg) PO QAM 90 days 03/11/24 release #180 caps blood-glucose meter (OneTouch #1 ea 03/27/24 Ultra2 Meter) blood sugar diagnostic (OneTouch #100 ea 03/29/24 Ultra Test strips) hydrophilic 1 applic topical TID PRN dry skin 04/13/24 #113 grams lancets 30 gauge (OneTouch #100 ea 04/14/24 UltraSoft 2 Lancet) aspirin 81 mg tablet,delayed 81 mg PO QAM #90 tabs 04/15/24 release (Enteric Coated Aspirin) levothyroxine 150 mcg tablet 150 mcg PO QAM #90 tabs 06/02/24 peg 3350-sod [id number] See Rx Instructions PO .COMPLEX #2 06/17/24 178.7-7.3-0.5-1.12-0.9 gram oral mL soln (Suflave) midodrine 2.5 mg tablet 5 mg (2 x 2.5 mg) PO 08/06/24 TID@0800,1200,1700 #180 tabs rosuvastatin 20 mg tablet 20 mg PO HS #90 tabs 08/14/24 cyanocobalamin (vitamin B-12) 500 500 mcg PO QAM #30 tabs 09/16/24 mcg tablet Results & Data (ED) Vital Signs Vital Signs - 24 hr 09/27/24 11:45 09/27/24 11:45 09/27/24 12:20 Temperature 36.8 C 36.8 C Temperature Source Oral Oral Pulse Rate 80 80 Pulse Rate [Apical] 80 Pulse Rhythm Regular Pulse Rhythm [Apical] Regular Pulse Strength [Apical] Normal Respiratory Rate 18 18 17 Respiratory Effort / Characteristics Non-Labored Spontaneous Non-Labored Spontaneous Respiratory Depth Normal Normal Respiratory Pattern Regular Blood Pressure 160/75 H Blood Pressure [Right Arm] 160/75 H Blood Pressure Mean 103 Blood Pressure Mean [Right Arm] 103 Blood Pressure Position Sitting Blood Pressure Position [Right Arm] Semi-fowlers Pulse Oximetry 98 98 100 Oxygen Delivery Method Room Air Room Air Room Air Sepsis Recent Fever Within 48 Hours No Sepsis New/Unexplained Change in Mental Status N/A Sepsis Action Taken by Nursing No Action Required 09/27/24 12:21 09/27/24 12:39 09/27/24 13:43 Temperature Temperature Source Pulse Rate 77 Pulse Rate [Apical] 77 Pulse Rhythm Pulse Rhythm [Apical] Regular Pulse Strength [Apical] Normal Respiratory Rate 16 Respiratory Effort / Characteristics Non-Labored Spontaneous Respiratory Depth Normal Respiratory Pattern Blood Pressure Blood Pressure [Right Arm] 161/104 H Blood Pressure Mean Blood Pressure Mean [Right Arm] 123 Blood Pressure Position Blood Pressure Position [Right Arm] Semi-fowlers Pulse Oximetry 100 100 Oxygen Delivery Method Room Air Room Air Sepsis Recent Fever Within 48 Hours Sepsis New/Unexplained Change in Mental Status Sepsis Action Taken by [facility] Medications Current Medication List: was personally reviewed by me Laboratory Data Attestation: I reviewed the patient's lab results. 09/27/24 16:18 09/27/24 11:55 Lab Results 09/27/24 09/27/24 09/27/24 Range/Units 11:51 11:55 12:17 WBC 5.34 (4.8-10.8) K/ul RBC 3.65 L (4.20-5.40) M/uL Hgb 11.2 L (12.0-16.0) g/dl Hct 35.8 L (37.0-47.0) % MCV 98.1 (80.0-100.0) fL MCH 30.7 (25.0-34.0) pg MCHC 31.3 L (32.0-36.0) g/dL RDW Std Deviation 50.6 H (36.4-46.3) fL RDW Coeff of Radha 14.0 (11.5-14.5) % Plt Count 209 (130-400) K/uL MPV 9.4 (9.4-12.4) fL Immature Gran % (Auto) 1.1 % Neut % (Auto) 72.8 % Lymph % (Auto) 16.7 % [place] % (Auto) 7.7 % Eos % (Auto) 1.1 % Baso % (Auto) 0.6 % Neut # (Auto) 3.89 (1.40-6.50) K/uL Lymph # (Auto) 0.89 L (1.20-3.40) K/uL [place] # (Auto) 0.41 (0.11-0.59) K/uL Eos # (Auto) 0.06 (0.00-0.50) K/uL Baso # (Auto) 0.03 (0.00-0.20) K/uL Immature Gran # (Auto) 0.06 (0.01-0.20) K/uL Sodium 138 (136-145) mmol/L Potassium 4.9 (3.5-5.1) mmol/L Chloride 102 (98-107) mmol/L Carbon Dioxide 28 (21-32) mmol/L Anion Gap 8 (3-11) BUN 16 (6-23) mg/dl Creatinine 0.93 (0.6-1.2) mg/dl Est Cr Clr Drug Dosing 73.8 ml/min eGFR 69.06 BUN/Creatinine Ratio 17.2 (10-20) Glucose 121 H (70-99(Fasting)) mg/dl POC Glucose 121 H (70-99) mg/dl Calcium 9.6 (8.6-10.3) mg/dl Total Bilirubin 0.3 (0.2-1.0) mg/dl AST 14 (13-39) U/L ALT 13 (7-52) U/L Alkaline Phosphatase 78 (34-104) U/L Troponin I High Sens 4.4 (0-14) pg/ml Total Protein 6.8 (6.0-8.3) gm/dl Albumin 4.7 (3.4-5.0) gm/dl Globulin 2.1 L (2.5-4.0) gm/dl Albumin/Globulin Ratio 2.2 H (0.9-2) TSH 9.060 H (0.300-4.500) uIu/ml Free T4 0.60 L (0.61-1.60) ng/dl Urine Color Yellow Urine Appearance Clear (Clear) Urine pH 8.0 H (4.5-7.5) Ur Specific [place] 1.006 (1.000-1.030) Urine Protein Negative (Negative) Urine Glucose (UA) Negative (Negative) Urine Ketones Negative (Negative) Urine Blood Negative (Negative) Urine Nitrite Negative (Negative) Urine Bilirubin Negative (Negative) Urine Urobilinogen Negative (Negative) Ur Leukocyte Esterase Negative (Negative) Urine Comment Administered Medications Aspirin ([facility] 81 Mg Ectab) [facility]: 10/28/24 08:59 Last Admin: 09/28/24 07:53 Dose: 81 mg Documented By: MELVA Clozapine (Clozapine 100 Mg Tab) 300 mg PO HS [facility]; Protocol Stop: 10/27/24 20:59 Last Admin: 09/27/24 21:14 Dose: 300 mg Documented By: TAMIE Clozapine (Clozapine 25 Mg Tab) 50 mg PO BID [facility]; Protocol Stop: 10/27/24 20:59 Last Admin: 09/28/24 07:55 Dose: 50 mg Documented By: Admin: 09/27/24 21:14 Dose: 50 mg Documented By: TAMIE Clozapine (Clozapine 100 Mg Tab) [address] [facility]; Protocol Stop: 10/28/24 08:59 Last Admin: 09/28/24 07:55 Dose: 100 mg Documented By: MELVA Cyanocobalamin (Cyanocobalamin (B-12) 500 Mcg Tablet) 500 [facility]: 10/28/24 08:59 Last Admin: 09/28/24 07:53 Dose: 500 mcg Documented By: MELVA Diclofenac Sodium (Diclofenac Sod 1% Gel 100 Gm Tube) 2 gm EXT QID [facility]; Protocol Stop: 10/27/24 16:59 Last Admin: 09/28/24 07:55 Dose: 2 gm Documented By: Admin: 09/27/24 21:14 Dose: 2 gm Documented By: Admin: 09/27/24 16:51 Dose: Not Given Documented By: FELIPE Enoxaparin Sodium (Enoxaparin Inj 40 Mg/0.4 Ml Syr) 40 mg SQ Q24H [facility] Stop: 10/27/24 16:29 Last Admin: 09/27/24 16:51 Dose: 40 mg Documented By: FELIPE Ferrous Sulfate (Ferrous Sulfate 325 Mg Tab) 325 mg PO DAILY [facility] Stop: 10/28/24 08:59 Last Admin: 09/28/24 07:54 Dose: 325 mg Documented By: MELVA Folic Acid (Folic Acid 1 Mg Tab) 1 mg PO QAM [facility] Stop: 10/28/24 08:59 Last Admin: 09/28/24 07:53 Dose: 1 mg Documented By: MELVA Gabapentin (Gabapentin 300 Mg Cap) 300 mg PO HS [facility] Stop: 10/27/24 20:59 Last Admin: 09/27/24 21:15 Dose: 300 mg Documented By: TAMIE Insulin Aspart (Insulin Aspart Per Unit Charge) 0 units SC ACHS [facility] Stop: 10/27/24 16:29 Last Admin: 09/28/24 07:50 Dose: Not Given Documented By: Admin: 09/27/24 21:08 Dose: Not Given Documented By: Admin: 09/27/24 16:53 Dose: Not Given Documented By: FELIPE Lamotrigine (Lamotrigine 100 Mg Tab) 200 mg PO BID [facility]; Protocol Stop: 10/27/24 20:59 Last Admin: 09/28/24 07:53 Dose: 200 mg Documented By: Admin: 09/27/24 21:15 Dose: 200 mg Documented By: TAMIE Levothyroxine Sodium (Levothyroxine Sodium 150 Mcg Tablet) 150 mcg PO DAILYBB [facility] Stop: 10/28/24 06:29 Last Admin: 09/28/24 06:12 Dose: 150 mcg Documented By: TAMIE Metformin HCl (Metformin Hcl Er 500 Mg Tabcr) 1,[facility]: 10/28/24 08:59 Last Admin: 09/28/24 07:52 Dose: 1,000 mg Documented By: MELVA Midodrine (Midodrine Hcl 2.5 Mg Tab) 5 mg PO TID@0800,1200,1700 [facility] Stop: 10/27/24 16:59 Last Admin: 09/28/24 07:53 Dose: 5 mg Documented By: Admin: 09/27/24 16:50 Dose: 5 mg Documented By: FELIPE Pantoprazole Sodium (Pantoprazole 40 Mg Tab) [address] [facility]; Protocol Stop: 10/28/24 08:59 Last Admin: 09/28/24 07:52 Dose: 40 mg Documented By: HEL Quetiapine Fumarate (Quetiapine Fumarate 300 Mg Tablet) 300 mg PO [facility] Stop: 10/27/24 20:59 Last Admin: 09/27/24 21:15 Dose: 300 mg Documented By: TAMIE Quetiapine Fumarate (Quetiapine Fumarate 100 Mg Tablet) [address] [facility] Stop: 10/28/24 08:59 Last Admin: 09/28/24 07:54 Dose: 100 mg Documented By: MELVA Rosuvastatin Calcium (Rosuvastatin Calcium 20 Mg Tab) 20 mg PO [facility] Stop: 10/27/24 20:59 Last Admin: 09/27/24 21:15 Dose: 20 mg Documented By: TAMIE Vitamin D (Cholecalciferol 25 Mcg (1000 Units) Tab) 25 mcg PO BID [facility] Stop: 10/27/24 20:59 Last Admin: 09/28/24 07:54 Dose: 25 mcg Documented By: Admin: 09/27/24 21:14 Dose: 25 mcg Documented By: TAMIE Discontinued Medications Sodium Chloride (Nss) 500 mls @ 999 mls/hr IV .Q31M [facility] Stop: 09/27/24 12:15 Last Infusion: 09/27/24 12:40 Dose: Infused Documented By: Admin: 09/27/24 11:56 Dose: 999 mls/hr Documented By: LADAN Magnesium Sulfate/Dextrose (Magnesium Sulfate / D5w) 1 gm in 100 mls @ 50 mls/hr IV Q2H [facility] Stop: 09/27/24 21:54 Last Infusion: 09/27/24 23:04 Dose: Infused Documented By: Admin: 09/27/24 20:52 Dose: 50 mls/hr Documented By: Infusion: 09/27/24 20:52 Dose: Infused Documented By: Admin: 09/27/24 18:54 Dose: 50 mls/hr Documented By: MLОльга Infusion: 09/27/24 18:47 Dose: Infused Documented By: MLОльга Admin: 09/27/24 16:47 Dose: 50 mls/hr Documented By: RRD Imaging Data Radiologist's Impression: Chest X-Ray 09/27/24 11:45 XR chest 1V portable CLINICAL HISTORY: weakness COMPARISON STUDY: 02/20/2024 FINDINGS: There is stable cardiomegaly with mild pulmonary vascular congestion. No effusion, consolidation, or pneumothorax. IMPRESSION: No acute findings. ACT 112: Negative or not required by law. Electronically signed by: Renato Gill M.D. 09/27/2024 12:36 PM Venous Doppler Study 09/27/24 11:45 LEFT LOWER EXTREMITY VENOUS DOPPLER HISTORY: L>R leg swelling COMPARISON STUDY: 02/20/2024 FINDINGS: No evidence of DVT seen in the left lower extremity. IMPRESSION: No DVT seen. . ACT 112: Negative or not required by law. Electronically signed by: Renato Gill M.D. 09/27/2024 1:08 PM Discharge Plan Visit Data Chief Complaint: Weakness Stated Complaint: WEAKNESS, DIZZINESS, ED Provider: Carter Rosales Discharge Problem: Dizziness, Anemia, Fall, Low T4, Venous stasis dermatitis of both lower extremities Patient Disposition: Admitted As Inpatient Condition: Good Discharge Instructions Interventions: ED Discharge Assessment Last Done: 09/27/24 15:24 Discharge Problem: Anemia Qualifiers: Anemia type: unspecified type Qualified Code(s): D64.9 - Anemia, unspecified Fall Qualifiers: Encounter type: initial encounter Qualified Code(s): W19.XXXA - Unspecified fall, initial encounter
[2024-09-27] MEDS: SODIUM CHLORIDE 0.9% 500 ML IV SCH (11:56)
[2024-09-27 12:11] LABS: Basophils # (auto) 0.03 K/uL (0.00-0.20); Basophils % (auto) 0.6 %; Eosinophils # (auto) 0.06 K/uL (0.00-0.50); Eosinophils % (auto) 1.1 %; Hematocrit (blood only) 35.8 % (37.0-47.0); Hemoglobin 11.2 g/dl (12.0-16.0); Immature Granulocytes # (auto) 0.06 K/uL (0.01-0.20); Immature Granulocytes % (auto) 1.1 %; Lymphocytes # (auto) 0.89 K/uL (1.20-3.40); Lymphocytes % (auto) 16.7 %; Mean Corpuscular Hemoglobin 30.7 pg (25.0-34.0); Mean Corpuscular Hgb Conc 31.3 g/dL (32.0-36.0); Mean Corpuscular Volume 98.1 fL (80.0-100.0); Mean Platelet Volume 9.4 fL (9.4-12.4); Monocytes # (auto) 0.41 K/uL (0.11-0.59); Monocytes % (auto) 7.7 %; Neutrophils # (auto) 3.89 K/uL (1.40-6.50); Neutrophils % (auto) 72.8 %; Platelet Count 209 K/uL (130-400); RDW Standard Deviation 50.6 fL (36.4-46.3); Red Blood Count 3.65 M/uL (4.20-5.40); White Blood Count 5.34 K/ul (4.8-10.8)
[2024-09-27 12:28] LABS: Albumin Globulin Ratio 2.2 (0.9-2); BUN Creatinine Ratio 17.2 (10-20); Bilirubin,Total 0.3 mg/dl (0.2-1.0); Calcium 9.6 mg/dl (8.6-10.3); Creatinine Clr Calc Pharmacy 73.8 ml/min; Globulin 2.1 gm/dl (2.5-4.0); Potassium 4.9 mmol/L (3.5-5.1); Total Protein 6.8 gm/dl (6.0-8.3)
[2024-09-27 12:28] LABS: Appearance Urine Clear (Clear); Bilirubin Urine Negative (Negative); Blood Urine Negative (Negative); Color Urine Yellow; Glucose Urine UA Negative (Negative); Ketones Urine Negative (Negative); Leukocyte Esterase Urine Negative (Negative); Nitrite Urine Negative (Negative); Protein Urine Negative (Negative); Specific Gravity Urine 1.006 (1.000-1.030); Urobilinogen Urine Negative (Negative)
[2024-09-27 12:33] LABS: Troponin I High Sensitivity 4.4 pg/ml (0-14)
--- NOTE | 2024-09-27 12:37 | XRay Report ---
XR chest 1V portable CLINICAL HISTORY: weakness COMPARISON STUDY: 02/20/2024 FINDINGS: There is stable cardiomegaly with mild pulmonary vascular congestion. No effusion, consolid ation, or pneumothorax. IMPRESSION: No acute findings. ACT 112: Negative or not required by law. Electronically signed by: Renato Gill M.D. 09/27/2024 12:36 PM
[2024-09-27 12:42] LABS: Thyroid Stimulating Hormone 9.06 uIu/ml (0.300-4.500)
--- NOTE | 2024-09-27 13:09 | Ultrasound Report ---
LEFT LOWER EXTREMITY VENOUS DOPPLER HISTORY: L>R leg swelling COMPARISON STUDY: 02/20/2024 FINDINGS: No evidence of DVT seen in the left lower extremity. IMPRESSION: No DVT seen. . ACT 112: Negative or not required by law. Electronically signed by: Renato Gill M.D. 09/27/2024 1:08 PM
--- NOTE | 2024-09-27 14:17 | History & Physical Report ---
Date of Service September 27, 2024 History of Present Illness Chief Complaint: Dizziness and falls Primary Care Provider: Hillary Clarke MD patient is a very pleasant 63-year-old female who comes after having had some falls at home. She notes that she was feeling dizzy and then fell. She does not feel like she has any serious injuries, her neck is a little bit sore but nothing severe. She bumped her leg a little bit but also nothing severe. No loss of consciousness. She describes the dizziness as a spinning sensationshe notes that she has had this before. Has been happening more in the recent past, but also whenever were discussing vertigo and treatment she recalls believing that she probably had vestibular therapy at 1 point in the distant past. She denies any focal numbness or weakness outside of some left hand fifth digit numbness that seems more consistent with intermittent ulnar nerve symptoms. She lives where she lives and feels like she has a lot of friends, normally her friends are able to help her if she gets weaker or falling more, but this time she noted she was alone. She is worried because the compensation and benefits manager where she lives was talking to her about maybe it being time to moved personal care. Allergies Allergy/AdvReac Type Severity Reaction Status Date / Time lithium Allergy Unknown Unknown Verified 07/13/24 13:58 escitalopram AdvReac Severe Manic Verified 07/13/24 13:58 haloperidol AdvReac Intermediate dystonia Verified 07/13/24 13:58 Penicillins AdvReac Intermediate Gastrointestinal Verified 07/13/24 13:58 Upset valproic acid AdvReac Intermediate Leg Verified 07/13/24 13:58 Swelling Home Medications Medication Instructions Recorded Confirmed Type clozapine 100 mg tablet 300 mg PO HS 01/28/18 09/27/24 History polyethylene glycol 3350 17 17 g PO DAILY PRN constipation 12/20/22 09/27/24 Rx gram/dose oral powder (Miralax) #119 grams lamotrigine 200 mg tablet 200 mg PO BID 02/25/23 09/27/24 History (Lamictal) quetiapine 300 mg tablet (Seroquel) 300 mg PO HS 02/27/23 09/27/24 History gabapentin 300 mg capsule 300 mg PO HS 01/17/24 09/27/24 History (Neurontin) quetiapine 100 mg tablet 100 mg PO QAM 01/17/24 09/27/24 History cholecalciferol (vitamin D3) 25 25 mcg PO BID 90 days #180 tabs 02/07/24 09/27/24 Rx mcg (1,000 unit) tablet metformin 500 mg tablet,extended 1,000 mg (2 x 500 mg) PO QAM #180 02/10/24 09/27/24 Rx release 24 hr tabs ferrous sulfate 325 mg (65 mg 325 mg PO DAILY #30 tabs 02/19/24 09/27/24 Rx iron) tablet (Iron (ferrous sulfate)) acetaminophen 325 mg tablet 650 mg (2 x 325 mg) PO Q8 PRN pain 03/11/24 09/27/24 Rx #240 tabs folic acid 1 mg tablet 1 mg PO QAM #30 tabs 03/11/24 09/27/24 Rx omeprazole 20 mg capsule,delayed 40 mg (2 x 20 mg) PO QAM 90 days 03/11/24 09/27/24 Rx release #180 caps blood-glucose meter (OneTouch #1 ea 03/27/24 07/13/24 Rx Ultra2 Meter) blood sugar diagnostic (OneTouch #100 ea 03/29/24 07/13/24 Rx Ultra Test strips) hydrophilic 1 applic topical TID PRN dry skin 04/13/24 09/27/24 Rx #113 grams lancets 30 gauge (OneTouch #100 ea 04/14/24 07/13/24 Rx UltraSoft 2 Lancet) aspirin 81 mg tablet,delayed 81 mg PO QAM #90 tabs 04/15/24 09/27/24 Rx release (Enteric Coated Aspirin) levothyroxine 150 mcg tablet 150 mcg PO QAM #90 tabs 06/02/24 09/27/24 Rx peg 3350-sod sulf,[id number] See Rx Instructions PO .COMPLEX #2 06/17/24 09/27/24 Rx 178.7-7.3-0.5-1.12-0.9 gram oral mL soln (Suflave) midodrine 2.5 mg tablet 5 mg (2 x 2.5 mg) PO 08/06/24 09/27/24 Rx TID@0800,1200,1700 #180 tabs rosuvastatin 20 mg tablet 20 mg PO HS #90 tabs 08/14/24 09/27/24 Rx cyanocobalamin (vitamin B-12) 500 500 mcg PO QAM #30 tabs 09/16/24 09/27/24 Rx mcg tablet clozapine 100 mg tablet 200 mg PO QAM 09/27/24 09/27/24 History clozapine 50 mg tablet 50 mg PO UD 09/27/24 09/27/24 History Past Med/Surg History Problem List Urine incontinence Tremor Esophageal dysmotility Abnormal CT scan, chest Bed sore Knee pain Hypoglycemia Folate deficiency Orthostatic hypotension Weakness (Acute) Vitamin B12 deficiency Fall (Acute) Severe morning sleep inertia Multiple pulmonary nodules determined by computed tomography of lung Anemia (Acute) Schizoaffective disorder (Chronic) Neuropathic pain Enuresis, nocturnal only Iron deficiency anemia Osteoarthritis of right knee Drug-induced parkinsonism Vitamin D deficiency Bilateral lumbar radiculopathy (Acute) Cataract (Acute) Gait instability (Acute) Hypertension (Acute) 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 Hypothyroidism Hyperlipidemia Dizziness (Chronic) Medical History AMS (altered mental status) Calf swelling Schizoaffective disorder Multiple pulmonary nodules pt unsure Thee Hypothyroidism HTN (hypertension) Hyperlipidemia Drug-induced parkinsonism pt unsure - sometimes has tremors Dizziness Type 2 diabetes mellitus Cataract Bilateral Anemia Pneumonia Currently on 3x antibiotics for 10 days - Thee - pt denies symptoms "was just found on CT scan" Anxiety Poor historian Hx of diverticulitis of colon History of colon polyps Brain TIA unsure "2019 maybe, not sure" Depression Frequent falls most recent 01/09/24 [facility] Chronic back pain GERD (gastroesophageal reflux disease) Asthma inhaler prn Constipation Surgical History History of removal of cyst benign cyst removed right breast History of colonoscopy History of tooth extraction all teeth removed History of tonsillectomy and adenoidectomy Family History Grandmother (Paternal) Diabetes Grandmother (Maternal) Diabetes Mother Anemia Bipolar disorder Cardiomyopathy Coronary heart disease Father Diabetes FH: kidney cancer Other No family history of adverse response to anesthesia Parkinson disease Parkinsonian syndrome Social History Smoking Status: Never smoker Second Hand Exposure: No; Do You Dip or Chew Tobacco: No; Hx Alcohol Use: No Hx Substance Use: No Preferred Language: Iranian Communication Ability: Effective Visual Impairment: No Limitations Hearing Ability: Normal Soaker Hides Required: No Beliefs That Will Affect Care: Rastafari marital status: Single Current Living Situation: Alone Current Living Situation Comment: Lives alone and does not want to continue to live by herself Feels Safe at Home: Yes Gender Identity: Female Assistive Devices: Walker Review of Systems Review of Systems: All systems reviewed & are unremarkable except as noted in HPI & below Physical Exam Physical Exam: In general she is awake alert oriented pleasant anxious but no distress. HEENT normocephalic atraumatic mucous membranes moist. Musculoskeletal shows no bony palpation tenderness on her C-spine, and no bony pain with range of motion, she has reproducible pain in her right upper cervical paraspinal musculature with palpation which also does hurt with lateral rotation (direct myofascial and some indirect unwinding done with mild improvement in the tissue texture changes in reproducing of her pain). Cardio is regular without rubs murmurs or gallops. Lungs are clear to auscultation bilaterally no rales rhonchi or wheeze with good effort. Skin shows no rashes no pallor or icterus. Bilateral lower extremities show venous stasis changes left worse than right (DVT negative on Doppler) she has a bruise on her left distal thigh from a prior fall. Neuro shows cranial nerves II through XII to be grossly intact outside of some right eye strabismus that appears to be chronic, motor is 5 out of 5 and equal bilaterally, sensory is intact with no deficits to confrontational light touch. Labs and diagnostics noted. most notable on physical exam is that her vertigo sensation is reproducible with rotation of her head to the right, and I do see a small amount of nystagmus when I do this. Results & Data Results & Data Vital Signs (Past 12 Hours) Vital Signs Temp Pulse Pulse Resp BP BP Pulse Ox 09/27/24 13:43 77 16 161/104 H 100 09/27/24 12:39 77 09/27/24 12:21 100 09/27/24 12:20 80 17 100 09/27/24 11:45 98.2 F 80 18 160/75 H 98 09/27/24 11:45 98.2 F 80 18 160/75 H 98 O2 Del Method 09/27/24 13:43 Room Air 09/27/24 12:39 09/27/24 12:21 Room Air 09/27/24 12:20 Room Air 09/27/24 11:45 Room Air 09/27/24 11:45 Room Air Code Status & VTE Plan VTE Prophylaxis Plan VTE Prophylaxis will be ordered: Yes Supervising Physician Co-Signing Physician Notes #Fallseems to be a mechanical fall precipitated by vertigo. No significant injuries (see below) PT/OT eval and treat #Vertigohistory and exam most consistent with BPPVincluding reproducibility and nystagmus. PT eval for potential vestibular therapy. Supportive care. May need outpatient vestibular PT as well #Neck painexamines extremely muscular. OMT as above. Mag IV as a muscle relaxant, Voltaren gel. Serial exams. No concerning signs or symptoms (i.e. no bony tenderness on palpation or bone pain with movement, and no radicular symptoms) that are concerning for true C-spine trauma #Bilateral lower extremity edemaappears to be venous stasis. Doppler was negative. #schizoaffective disordercontinue her home medications. #Slightly elevated TSH/slightly low free T4/hypothyroidismcontinue home dosing of Synthroid for now, repeat labs in a few weeks to a monthif this persists, then would increase the dose a bit. #DVT prophylaxisLovenox #dispositionadmit to medical, PT/OT eval and treat both to help with the vertigo and to best discern safe disposition (she would very much like to return home if possible, and depending on how she does with therapy, this could be reasonable) PG Care Time/CCT Total # of Minutes Spent Total Time Spent with Patient: Total time spent is greater than 50% in coordination of care (as documented) at patient's floor/unit and/or counseling patient: Coding Level of Care Code 00528 INT INP/OBS CARE 3/75MIN
[2024-09-27] MEDS ORDERED: POLYETHYLENE (MIRALAX) 17 GM PACK PO PRN (15:55)
[2024-09-27] MEDS ORDERED: ONDANSETRON INJ 2 MG/ML 2 ML VIAL IV PRN (15:55)
[2024-09-27] MEDS ORDERED: ALUMINUM/MAGNESIUM SUSP 30 ML UDC PO PRN (15:55)
[2024-09-27] MEDS ORDERED: ACETAMINOPHEN 325 MG TAB PO PRN (15:55)
[2024-09-27] MEDS ORDERED: MAGNESIUM HYDROXIDE SUSP 30 ML UDC PO PRN (15:55)
[2024-09-27] MEDS ORDERED: CARBOHYDRATES FOR HYPOGLYCEMIA PO PRN (16:15)
[2024-09-27] MEDS ORDERED: DEXTROSE 50% 50 ML SYRINGE IV PRN (16:15)
[2024-09-27] MEDS ORDERED: GLUCAGON FOR INJ 1 MG VIAL SQ PRN (16:15)
[2024-09-27] MEDS ORDERED: GLUCOSE 40% GEL 15 GM TUBE PO PRN (16:15)
[2024-09-27] MEDS ORDERED: GLUCOSE 10 TAB/TUBE PO PRN (16:15)
[2024-09-27 16:42] LABS: Basophils # (auto) 0.03 K/uL (0.00-0.20); Basophils % (auto) 0.5 %; Eosinophils # (auto) 0.07 K/uL (0.00-0.50); Eosinophils % (auto) 1.2 %; Hematocrit (blood only) 32.1 % (37.0-47.0); Hemoglobin 10.1 g/dl (12.0-16.0); Immature Granulocytes # (auto) 0.02 K/uL (0.01-0.20); Immature Granulocytes % (auto) 0.3 %; Lymphocytes % (auto) 19.2 %; Mean Corpuscular Hemoglobin 30.7 pg (25.0-34.0); Mean Corpuscular Hgb Conc 31.5 g/dL (32.0-36.0); Mean Corpuscular Volume 97.6 fL (80.0-100.0); Mean Platelet Volume 9.5 fL (9.4-12.4); Monocytes # (auto) 0.34 K/uL (0.11-0.59); Monocytes % (auto) 5.9 %; Neutrophils # (auto) 4.17 K/uL (1.40-6.50); Neutrophils % (auto) 72.9 %; Platelet Count 193 K/uL (130-400); RDW Coefficient of Variation 13.9 % (11.5-14.5); RDW Standard Deviation 49.5 fL (36.4-46.3); Red Blood Count 3.29 M/uL (4.20-5.40); White Blood Count 5.73 K/ul (4.8-10.8)
[2024-09-27] MEDS: MAGNESIUM SULFATE / D5W 1 GM/100 ML BAG IV SCH (16:47)
[2024-09-27] MEDS: MIDODRINE HCL 2.5 MG TAB PO SCH (16:50)
[2024-09-27] MEDS: ENOXAPARIN INJ 40 MG/0.4 ML SYR SQ SCH (16:51)
[2024-09-27] MEDS: DICLOFENAC SOD 1% GEL 100 GM TUBE EXT SCH (16:51)
[2024-09-27] MEDS: INSULIN ASPART PER UNIT CHARGE SC SCH (16:53)
[2024-09-27] MEDS: CHOLECALCIFEROL 25 MCG (1000 UNITS) TAB PO SCH (21:14)
[2024-09-27] MEDS: cloZAPine 100 MG TAB PO SCH (21:14)
[2024-09-27] MEDS: cloZAPine 25 MG TAB PO SCH (21:14)
[2024-09-27] MEDS: lamoTRIgine 100 MG TAB PO SCH (21:15)
[2024-09-27] MEDS: GABAPENTIN 300 MG CAP PO SCH (21:15)
[2024-09-27] MEDS: ROSUVASTATIN CALCIUM 20 MG TAB PO SCH (21:15)
[2024-09-27] MEDS: QUEtiapine FUMARATE 300 MG TABLET PO SCH (21:15)
[2024-09-28] MEDS: LEVOTHYROXINE SODIUM 150 MCG TABLET PO SCH (06:12)
[2024-09-28] MEDS: PANTOprazole 40 MG TAB PO SCH (07:52)
[2024-09-28] MEDS: metFORMIN HCL ER 500 MG TABCR PO SCH (07:52)
[2024-09-28] MEDS: CYANOCOBALAMIN (B-12) 500 MCG TABLET PO SCH (07:53)
[2024-09-28] MEDS: ASPIRIN 81 MG ECTAB PO SCH (07:53)
[2024-09-28] MEDS: FOLIC ACID 1 MG TAB PO SCH (07:53)
[2024-09-28] MEDS: FERROUS SULFATE 325 MG TAB PO SCH (07:54)
[2024-09-28] MEDS: QUEtiapine FUMARATE 100 MG TABLET PO SCH (07:54)
[2024-09-28] MEDS: cloZAPine 100 MG TAB PO SCH (07:55)
[2024-09-28] MEDS ORDERED: metFORMIN HCL ER 500 MG TABCR PO SCH (12:00)
--- NOTE | 2024-09-28 14:18 | Hospitalist Progress Note ---
Date of Service September 28, 2024 Assessment & Plan (1) Fall: (2) Dizziness: (3) Anemia: (4) Hypothyroidism: (5) Schizoaffective disorder: Plan This is a 63 year old female with past medical history of schizoaffective disorder, type 2 DM, hypothyroidism, dizziness who presented to the ED on 09/27/24 for recurrent falls. #Dizziness/recurrent falls hx of Vertigo w/ vestibular therapy in past. Polypharmacy may be playing a role - Clozapine, Gabapentin, Lamotrigine, Seroquel may be contributing to symptoms. Orthostatic BP negative CBC/BMP stable. Continue Midodrine for hx of orthostatic hypotension. PT/OT consulted - recommending rehab upon discharge. AM CBC, BMP, Iron panel, B12 in AM #Hypothyroidism TSH 9 w/ mildly low free T4 of 0.60 on admission Continue Synthroid Repeat TSH levels in 4-6 weeks following discharge, if elevated still may need an adjustment of her Synthroid dose #Type 2 DM A1c 12/05/23 - 6.3% Home regimen: Metformin - continue Update A1c in AM #Schizoaffective d/o Home meds include: Clozapine, Lamotrigine, Seroquel #GERD - PPI #HLD - statin DVT prophylaxis: Lovenox Code: full Admission and Anticipated Discharge Date Admission Date: September 27, 2024 Misti Yan was seen and examined this morning. She denies any complaints today. States her dizziness happens occasionally. She states she is worried she will not be able to return home due to her frequent falls. Physical Exam Physical Exam: General: no acute distress; non-toxic appearing; well-nourished; cooperative HEENT: normocephalic, atraumatic; no scleral icterus; PERRLA w/ EOMs intact; vision and hearing grossly intact Neck: trachea midline Skin: warm, dry without signs of tenting; no cyanosis; no rashes, bruising, lesions, or erythema noted Lungs: no acute respiratory distress; symmetrical chest wall expansion MSK:mild edema in b/l LE Neuro: A&Ox3; normal mood and affect; fluent speech; no focal deficits Results & Data Results & Data Vital Signs (Past 12 Hours) Vital Signs Temp Pulse Resp BP Pulse Ox O2 Del Method 09/28/24 07:08 36.6 C 74 18 118/76 97 Room Air PG Care Time/CCT Total # of Minutes Spent Total Time Spent with Patient: Total time spent is greater than 50% in coordination of care (as documented) at patient's floor/unit and/or counseling patient: Coding Level of Care Code 64741 SUB INP/OBS CARE 2/35MIN Diagnoses Fall, subsequent encounter W19.XXXD Encounter type: subsequent encounter Dizziness R42 Anemia D64.9 Anemia type: unspecified type Hypothyroidism E03.9 Schizoaffective disorder, bipolar type F25.0 Schizoaffective disorder type: bipolar (1) Fall Encounter type: subsequent encounter Qualified Code(s): W19.XXXD - Unspecified fall, subsequent encounter (3) Anemia Anemia type: unspecified type Qualified Code(s): D64.9 - Anemia, unspecified (5) Schizoaffective disorder Schizoaffective disorder type: bipolar Qualified Code(s): F25.0 - Schizoaffective disorder, bipolar type
[2024-09-29 07:38] LABS: Hematocrit (blood only) 33.1 % (37.0-47.0); Hemoglobin 10.6 g/dl (12.0-16.0); Mean Corpuscular Hemoglobin 31.2 pg (25.0-34.0); Mean Corpuscular Volume 97.4 fL (80.0-100.0); Mean Platelet Volume 9.4 fL (9.4-12.4); Platelet Count 200 K/uL (130-400); RDW Coefficient of Variation 13.9 % (11.5-14.5); White Blood Count 5.72 K/ul (4.8-10.8)
[2024-09-29 08:15] LABS: Ferritin 46.5 ng/ml (8-388)
[2024-09-29 08:17] LABS: Calcium 9.1 mg/dl (8.6-10.3); Potassium 4.2 mmol/L (3.5-5.1)
[2024-09-29 08:37] LABS: BUN Creatinine Ratio 17.3 (10-20); Creatinine Clr Calc Pharmacy 70.1 ml/min
--- NOTE | 2024-09-29 11:31 | Hospitalist Progress Note ---
Date of Service September 29, 2024 Assessment & Plan (1) Dizziness: Plan: hx of Vertigo w/ vestibular therapy in past. Polypharmacy may be playing a role - Clozapine, Gabapentin, Lamotrigine, Seroquel may be contributing to symptoms. Orthostatic BP negative CBC/BMP stable. Continue Midodrine for hx of orthostatic hypotension. PT/OT consulted - recommending rehab upon discharge. (2) Hypothyroidism: Plan: -con't synthroid (3) Schizoaffective disorder: Plan: Clozapine, Lamotrigine, Seroquel Plan This is a 63 year old female with past medical history of schizoaffective disorder, type 2 DM, hypothyroidism, dizziness who presented to the ED on 09/27/24 for recurrent falls. Plan to d/c in am 09/30 with out patient vestibular therapy arranged by [facility] DVT prophylaxis: Lovenox Code: full Admission and Anticipated Discharge Date Admission Date: September 27, 2024 Subjective Pt feeling she is not ready to go home. Still with episodes of vertigo. Review of Systems Review of Systems: CONST: Negative for fever, body aches and chills. HENT: Negative for neck pain/stiffness, headache, congestion, sore throat, swelling. EYES: Negative for discharge/pain or vision changes. RESP: Negative for cough/hemoptysis and shortness of breath. CV: Negative chest pain, difficulty breathing, palpitations. ABD: Negative pain, nausea, vomiting. : Negative increase frequency, dysuria, blood in urine or stool. MUSC: Negative for muscle aches, edema. SKIN: Negative rash, lesions/sores. NEURO: Negative headache, dizziness, weakness. Physical Exam Physical Exam: GENERAL APPEARANCE NAD, activity normal for age, well developed/ well nourished, no cyanosis, pallor, or diaphoresis. EYES lids/conjunctiva normal. EARS/NOSE/THROAT Mucous membranes moist, nares normal, lips/teeth normal uvula midline without oral pharyngeal erythema, exudate or swelling TMs normal bilaterally. No lymphangitis/lymphedema. HEAD/NECK normocephalic atraumatic, no facial trauma, neck is supple. RESPIRATORY respiratory effort normal, speaks in full sentences, no tripod position, no accessory muscle use. Lungs clear to auscultation without rhonchi, wheezes, rales CARDIAC Regular rate and rhythm, no edema. ABDOMINAL Soft, ND/NT. No evidence of fluid wave. No pulsatile masses on exam, rebound tenderness, Peñaloza sign or pain over Mcburney's point. MUSCLES/EXTREMITIES No abnormal range of motion, no swelling. SKIN Warm, pink and dry. No rashes, dermatoses, petechiae or lesions. NEUROLOGICAL Speech is clear and appropriate. Normal level of consciousness. Gait and coordination are normal. 5/5 strength in all extremities. PSYCH Normal mood and affect. Judgement/competence is appropriate Results & Data Results & Data Vital Signs (Past 12 Hours) Vital Signs Temp Pulse Resp BP Pulse Ox O2 Del Method 09/29/24 07:39 36.5 C 70 18 131/86 97 Room Air PG Care Time/CCT Total # of Minutes Spent Total Time Spent with Patient: Total time spent is greater than 50% in coordination of care (as documented) at patient's floor/unit and/or counseling patient: Coding Level of Care Code 44969 SUB INP/OBS CARE 2/35MIN Diagnoses Dizziness R42 Hypothyroidism E03.9 Schizoaffective disorder, bipolar type F25.0 Schizoaffective disorder type: bipolar (3) Schizoaffective disorder Schizoaffective disorder type: bipolar Qualified Code(s): F25.0 - Schizoaffective disorder, bipolar type
[2024-09-29] MEDS ORDERED: NYSTATIN POWDER 15GM BTL EXT PRN (23:16)
[2024-09-29] MEDS ORDERED: MICONAZOLE NITRATE POWDER 85 GM EXT PRN (23:22)
--- NOTE | 2024-09-30 09:33 | Hospitalist Progress Note ---
Date of Service September 30, 2024 Assessment & Plan (1) Dizziness: Plan: hx of Vertigo w/ vestibular therapy in past. Polypharmacy may be playing a role - Clozapine, Gabapentin, Lamotrigine, Seroquel may be contributing to symptoms. Orthostatic BP negative CBC/BMP stable. Continue Midodrine for hx of orthostatic hypotension. PT/OT consulted - recommending rehab upon discharge. Awaiting placement (2) Hypothyroidism: Plan: -con't synthroid (3) Schizoaffective disorder: Plan: Clozapine, Lamotrigine, Seroquel Plan This is a 63 year old female with past medical history of schizoaffective disorder, type 2 DM, hypothyroidism, dizziness who presented to the ED on 09/27/24 for recurrent falls. Plan to d/c in am 09/30 with out patient vestibular therapy arranged by [facility] DVT prophylaxis: Lovenox Code: full Admission and Anticipated Discharge Date Admission Date: September 27, 2024 Subjective No events overnight, pt resting in bed. Review of Systems Review of Systems: CONST: Negative for fever, body aches and chills. HENT: Negative for neck pain/stiffness, headache, congestion, sore throat, swelling. EYES: Negative for discharge/pain or vision changes. RESP: Negative for cough/hemoptysis and shortness of breath. CV: Negative chest pain, difficulty breathing, palpitations. ABD: Negative pain, nausea, vomiting. : Negative increase frequency, dysuria, blood in urine or stool. MUSC: Negative for muscle aches, edema. SKIN: Negative rash, lesions/sores. NEURO: Negative headache, dizziness, weakness. Physical Exam Physical Exam: GENERAL APPEARANCE NAD, activity normal for age, well developed/ well nourished, no cyanosis, pallor, or diaphoresis. EYES lids/conjunctiva normal. EARS/NOSE/THROAT Mucous membranes moist, nares normal, lips/teeth normal uvula midline without oral pharyngeal erythema, exudate or swelling TMs normal bilaterally. No lymphangitis/lymphedema. HEAD/NECK normocephalic atraumatic, no facial trauma, neck is supple. RESPIRATORY respiratory effort normal, speaks in full sentences, no tripod position, no accessory muscle use. Lungs clear to auscultation without rhonchi, wheezes, rales CARDIAC Regular rate and rhythm, no edema. ABDOMINAL Soft, ND/NT. No evidence of fluid wave. No pulsatile masses on exam, rebound tenderness, Peñaloza sign or pain over Mcburney's point. MUSCLES/EXTREMITIES No abnormal range of motion, no swelling. SKIN Warm, pink and dry. No rashes, dermatoses, petechiae or lesions. NEUROLOGICAL Speech is clear and appropriate. Normal level of consciousness. Gait and coordination are normal. 5/5 strength in all extremities. PSYCH Normal mood and affect. Judgement/competence is appropriate Results & Data Results & Data Vital Signs (Past 12 Hours) Vital Signs Temp Pulse Resp BP Pulse Ox O2 Del Method 09/30/24 07:05 36.6 C 74 18 125/81 96 Room Air PG Care Time/CCT Total # of Minutes Spent Total Time Spent with Patient: Total time spent is greater than 50% in coordination of care (as documented) at patient's floor/unit and/or counseling patient: Coding Level of Care Code 28642 SUB INP/OBS CARE 2/35MIN Diagnoses Dizziness R42 Hypothyroidism E03.9 Schizoaffective disorder, bipolar type F25.0 Schizoaffective disorder type: bipolar (3) Schizoaffective disorder Schizoaffective disorder type: bipolar Qualified Code(s): F25.0 - Schizoaffective disorder, bipolar type
--- NOTE | 2024-09-30 12:33 | Electrocardiogram Report ---
Test Reason : Blood Pressure : */* mmHG Vent. Rate : 78 BPM Atrial Rate : 78 BPM P-R Int : 150 ms QRS Dur : 108 ms QT Int : 422 ms P-R-T Axes : 42 -2 40 degrees QTcB Int : 481 ms Normal sinus rhythm Normal ECG When compared with ECG of 20-Feb-2024 08:15, No significant change was found Confirmed by Luigi Christiansen ([id number]) on 09/30/2024 12:33:21 PM Referred By: REFERRED SELF Confirmed By: Luigi Christiansen
--- NOTE | 2024-09-30 12:39 | CT Scan Report ---
CT head/brain wo con CLINICAL HISTORY: 63 years-old Female with vertigo. Acute vertigo TECHNIQUE: Multiple axial CT images of the head were obtained without contrast. A dose lowering tech nique was utilized adhering to the principles of ALARA. CT DOSE: 625.8 mGy.cm COMPARISON: 02/20/2024. FINDINGS: No acute intracranial hemorrhage, midline shift, intracranial mass, hydrocephalus, territorial ischem ia or abnormal extra-axial collection. Involutional changes with white matter hypodensities suggestiv e of chronic microvascular ischemic disease. Unchanged chronic left cerebellar lacunar infarct on selma ge 11 series 2. The calvarium is intact. The paranasal sinuses, mastoid air cells, and middle ear cavities are clear . IMPRESSION: No acute intracranial abnormality. ACT 112: Negative or not required by law. The above report was generated using voice recognition software. It may contain grammatical, syntax o r spelling errors. Electronically signed by: Lanre Green M.D. 09/30/2024 12:38 PM
--- NOTE | 2024-09-30 14:59 | Discharge Summary ---
Discharge Summary Date of Service September 30, 2024 Principal Dx & Hospital Course #1 = Principal Diagnosis (1) Dizziness: hx of Vertigo w/ vestibular therapy in past. Polypharmacy may be playing a role - Clozapine, Gabapentin, Lamotrigine, Seroquel may be contributing to symptoms. Orthostatic BP negative CBC/BMP stable. Continue Midodrine for hx of orthostatic hypotension. PT/OT consulted - recommending rehab upon discharge. Awaiting placement (2) Hypothyroidism: -con't synthroid (3) Schizoaffective disorder: Clozapine, Lamotrigine, Seroquel Plan This is a 63 year old female with past medical history of schizoaffective disorder, type 2 DM, hypothyroidism, dizziness who presented to the ED on 09/27/24 for recurrent falls. Plan to d/c in am 09/30 with out patient vestibular therapy arranged by [facility] DVT prophylaxis: Lovenox Code: full Admission HPI Per Admitting Provider patient is a very pleasant 63-year-old female who comes after having had some falls at home. She notes that she was feeling dizzy and then fell. She does not feel like she has any serious injuries, her neck is a little bit sore but nothing severe. She bumped her leg a little bit but also nothing severe. No loss of consciousness. She describes the dizziness as a spinning sensationshe notes that she has had this before. Has been happening more in the recent past, but also whenever were discussing vertigo and treatment she recalls believing that she probably had vestibular therapy at 1 point in the distant past. She denies any focal numbness or weakness outside of some left hand fifth digit numbness that seems more consistent with intermittent ulnar nerve symptoms. She lives where she lives and feels like she has a lot of friends, normally her friends are able to help her if she gets weaker or falling more, but this time she noted she was alone. She is worried because the manager metrology where she lives was talking to her about maybe it being time to moved personal care. Discharge Exam GENERAL APPEARANCE NAD, activity normal for age, well developed/ well nourished, no cyanosis, pallor, or diaphoresis. EYES lids/conjunctiva normal. EARS/NOSE/THROAT Mucous membranes moist, nares normal, lips/teeth normal uvula midline without oral pharyngeal erythema, exudate or swelling TMs normal bilaterally. No lymphangitis/lymphedema. HEAD/NECK normocephalic atraumatic, no facial trauma, neck is supple. RESPIRATORY respiratory effort normal, speaks in full sentences, no tripod position, no accessory muscle use. Lungs clear to auscultation without rhonchi, wheezes, rales CARDIAC Regular rate and rhythm, no edema. ABDOMINAL Soft, ND/NT. No evidence of fluid wave. No pulsatile masses on exam, rebound tenderness, Peñaloza sign or pain over Mcburney's point. MUSCLES/EXTREMITIES No abnormal range of motion, no swelling. SKIN Warm, pink and dry. No rashes, dermatoses, petechiae or lesions. NEUROLOGICAL Speech is clear and appropriate. Normal level of consciousness. Gait and coordination are normal. 5/5 strength in all extremities. PSYCH Normal mood and affect. Judgement/competence is appropriate Discharge Plan Discharge Items Patient Disposition: Transfer [facility] Reason For Visit: VERTIGO, FALL Discharge Diagnosis: Vertigo Condition on Discharge: Good Activity: Resume your previous activity Non-emergency contact: Primary Care Provider Call non-emergency contact if: you have any medication questions Follow-up/Referrals: Hillary Clarke MD [Primary Care Provider] - Diet: Regular Addtl Attending Provider Instructions: Follow up with PMD in 2 weeks Pending Studies at Discharge: No Stand-Alone Forms: [facility] Items Patient informed of condition?: Yes DNR: No Discharge Level of Care: Skilled Communicable Disease: No Discharge Prognosis: Stable Lines: None Urinary Catheter: No Medications and DC Order Prescriptions: Continued lamotrigine [Lamictal] 200 mg tablet 200 mg PO BID cholecalciferol (vitamin D3) 25 mcg (1,000 unit) tablet 25 mcg PO BID 90 Days Qty: 180 3RF metformin 500 mg tablet extended release 24 hr 1,000 mg PO QAM Qty: 180 3RF ferrous sulfate [Iron (ferrous sulfate)] 325 mg (65 mg iron) tablet 325 mg PO DAILY Qty: 30 0RF Hold Instructions: Resume on 03/02/24. Hold due to constipation; can resume once bowel regimen is optimized Rx Instructions: Unable to verify OTC meds at this date/time. acetaminophen 325 mg tablet 650 mg PO Q8 MDD 3000mg PRN (Reason: pain) Qty: 240 5RF folic acid 1 mg tablet 1 mg PO QAM Qty: 30 6RF omeprazole 20 mg capsule,delayed release(DR/EC) 40 mg PO QAM 90 Days Qty: 180 2RF (DME) blood-glucose meter [OneTouch Ultra2 Meter] Misc See Rx Instructions .Route Qty: 1 0RF Rx Instructions: As directed (DME) OneTouch Ultra Test Strip See Rx Instructions .Route Qty: 100 3RF Rx Instructions: check bsg once daily (DME) lancets [OneTouch UltraSoft 2 Lancet] 30 gauge misc See Rx Instructions .Route Qty: 100 3RF Rx Instructions: check once daily aspirin [Enteric Coated Aspirin] 81 mg tablet,delayed release (DR/EC) 81 mg PO QAM Qty: 90 3RF levothyroxine 150 mcg tablet 150 mcg PO QAM Qty: 90 3RF Suflave 178.7-7.3-0.5 gram recon soln See Rx Instructions PO .COMPLEX Qty: 2 0RF Rx Instructions: orally; orally; TAKE FIRST DOSE AT 6 PM AND SECOND DOSE 6 HOURS PRIOR TO PROCEDURE BIN: [id number] PCN: [id number] GROUP: [id number] midodrine 2.5 mg tablet 5 mg PO TID@0800,1200,1700 Qty: 180 5RF rosuvastatin 20 mg tablet 20 mg PO HS Qty: 90 2RF cyanocobalamin (vitamin B-12) 500 mcg tablet 500 mcg PO QAM Qty: 30 6RF quetiapine [Seroquel] 300 mg tablet 300 mg PO HS hydrophilic Ointment 1 applic topical TID PRN (Reason: dry skin) Qty: 113 1RF clozapine 100 mg Tablet 300 mg PO HS Rx Instructions: 09/27-per pt she takes 300mg po hs and 200mg po qam but she wasnt 100% sure if thats correct polyethylene glycol 3350 [Miralax] 17 gram/dose powder 17 g PO DAILY PRN (Reason: constipation) Qty: 119 0RF quetiapine 100 mg Tablet 100 mg PO QAM gabapentin [Neurontin] 300 mg capsule 300 mg PO HS clozapine 100 mg tablet 200 mg PO QAM Rx Instructions: 09/27-per pt she takes 300mg po hs and 200mg po qam but she wasnt 100% sure if thats correct clozapine 50 mg tablet 50 mg PO UD Rx Instructions: original: 50 mg po bid 6/22-per pt she takes 300mg po hs and 200mg po qam but she wasnt 100% sure if thats correct. Last filled 09/18 28 day supply. Total dosing would be 350mg po hs and 250mg po qam. Discharge Orders: Discharge Order (Routine); Ordered 09/30/24 Ordered By: Shane Mercer Admission Data Admit Date/Time: 09/27/24 14:01 Attending Provider: Shane Mercer Admit Provider: Héctor Chan Primary Care Provider: Hillary Clarke Other Providers: Héctor Chan; [facility] Stay Data Consultations 09/27/24 13:18 ED Decision to Admit Stat Diagnostic Imagining Performed 09/27/24 11:45 US venous doppler LE LT Stat 09/30/24 10:58 CT head/brain wo con Routine Pending Results Patient Have Any Pending Studies at Discharge: No Discharge Instructions Given to Patient (Per Discharging Provider) Follow up with PMD in 2 weeks Total Time Total Time Spent Total Time Spent (In Minutes): 50 Coding Level of Care Code 42291 INP/OBS DISCH >30 MIN Diagnoses Dizziness R42 Hypothyroidism E03.9 Schizoaffective disorder, bipolar type F25.0 Schizoaffective disorder type: bipolar
[2024-09-30 15:42] VITALS: BP 133/85; PULSE 75; RESP 17; TEMP 98.1; O2SAT 98
== END 2024-09-30 15:58 | DRG 149 ==
LOC: ED 11:39 → INTOOBSV 14:01 → 3E 14:01 → SUATTDRO 14:01 → 3E 15:24

== ENCOUNTER 2024-12-28 11:52 | Inpatient (IN) ==
--- NOTE | 2024-12-28 12:16 | Emergency Department Note ---
Impression & Plan Weakness ED Provider Note CHIEF COMPLAINT: Dizziness HISTORY OF PRESENTING ILLNESS: The patient is a 64-year-old female who arrives to the emergency department for evaluation of dizziness since Saturday. Patient states she was afraid to get out of the chair this morning to get her midodrine, that she is to take when she feels dizzy. She states over the weekend, she has felt like she was unable to get up and move around like she normally does due to weakness. She reports no focal weakness. She denies fall or trauma. She reports no chest pain, shortness of breath, abdominal pain, dysuria, or fever. Patient is in the restroom upon my arrival. Patient had a steady gait with assist x 1 back to the bed. While in the bed patient does appear to be leaning to the right. REVIEW OF SYSTEMS: See HPI for pertinent positives and pertinent negatives. ALLERGIES: See below MEDICATIONS: See below PAST MEDICAL HISTORY: See below PHYSICAL EXAM: VITALS: Vitals are noted on the nurse's note and reviewed by myself. Vital signs stable. GENERAL: 64-year-old female, in no acute distress, nondiaphoretic, obese. SKIN: The skin was without rashes, erythema, edema, or bruising. HEAD: Normocephalic atraumatic. EARS: External auditory canals clear, tympanic membranes pearly rico without erythema or effusion bilaterally. EYES: Pupils equal round and reactive to light and accommodation. Right monocular exotropia. Conjunctivae without injection, sclerae without icterus. Extraocular movements intact. No nystagmus. MOUTH: Mucous membranes moist. No tonsillar hypertrophy. Pharynx without erythema or exudate. Uvula midline. Airway patent. Tongue does not deviate. NECK: Supple without nuchal rigidity. No lymphadenopathy. Cervical spine is nontender. No JVD. HEART: Regular rate and rhythm without murmurs gallops or rubs. LUNGS: Clear to auscultation bilaterally without wheezes, rales or rhonchi. No retractions or accessory muscle use. ABDOMEN: Positive bowel sounds x 4. Soft, nontender, without masses or organomegaly. Peñaloza sign negative. No guarding or rebound tenderness. MUSCULOSKELETAL: No muscle atrophy, erythema, or edema noted. Strength 5/5 throughout. NEURO: Patient was alert and oriented to person place and time. Patient leaning to the right on exam. No focal neurological deficits. NIHSS 0. DIFFERENTIAL DIAGNOSIS: Benign positional vertigo, dehydration, hypovolemia, anemia, tumor, infection, hypoglycemia, electrolyte abnormalities, cardiac sources, intracerebral event, toxicologic, neurologic, as well as other pathologies. ED COURSE AND MEDICAL DECISION MAKING: MEDICATIONS GIVEN: 1 L NSS bolus MONITOR: Continuous school lunch monitor: Order was placed for continuous school lunch monitor. Patient was placed on the school lunch monitor and continuous pulse ox. Patient was noted to be in normal sinus rhythm at an initial rate of 82 bpm per my interpretation. EKG: EKG was interpreted by myself as normal sinus rhythm at a rate of 82 bpm, QT 420, QTc 490. No ST elevation or depression. EKG for comparison from September 2024 shows no significant change. INTERPRETATION OF LABS: I interpreted the labs with full lab results as below in the lab section of this note. Pertinent lab results discussed in the MDM section below. INTERPRETATION OF IMAGING: Imaging studies were interpreted by myself and read by radiology as per the imaging section of this note. CHRONIC MEDICAL/SOCIAL CONDITIONS AFFECTING CARE: Orthostatic hypotension, anemia, schizoaffective disorder, hypothyroidism ESCALATION OF CARE CONSIDERED: Pt will require admission for generalized weakness with no focal deficit. MDM SUMMARY: The patient is a pleasant, 64-year-old female who arrives to the emergency department for evaluation of the above-stated complaint. Patient was exhibiting a right sided lean, concerning for stroke. Saline lock was established, stroke workup was obtained. Patient was outside stroke window, therefore no stroke alert was called. CBC shows no leukocytosis, with a stable anemia. CMP is unremarkable. TSH within normal limits. Troponin 5.2. Coags within normal limits. Urinalysis negative for infection. Viral panel negative. Chest x-ray per my interpretation shows no acute cardiopulmonary process. Head CT, CTA, neck CTA shows no acute findings, specifically no significant arterial occlusion, or narrowing. Patient NIHSS 0 per my examination. Orthostatic vital signs negative. Patient had taken midodrine prior to arrival. She was provided 1 L bolus normal saline. Upon reevaluation she stated she felt too weak to go home. I spoke with the [facility] hospitalist, who agreed to evaluate and accept the patient for admission. [facility] Please refer to their documentation for further patient workup and care. DIAGNOSIS: Weakness The patient's case was discussed with Dr. Najera, who agreed with my evaluation and treatment plan. The chart was completed utilizing [employer] Speech voice recognition software. Grammatical errors, random word insertions, pronoun errors, and incomplete sentences are an occasional consequence of this system due to software limitations, ambient noise, and hardware issues. Any formal questions or concerns about the content, text, or information contained within the body of this dictation should be directly addressed to the provider for clarification. Past Med/Surg History Problem List (Updated 12/28/24 @ 15:42 by MIRIAM Fontaine) Weakness (Acute) Diabetes mellitus type 2, controlled Generalized weakness Lightheadedness Venous stasis dermatitis of both lower extremities (Acute) Low T4 (Acute) Fall (Acute) Anemia (Acute) Dizziness (Acute) Urine incontinence Tremor Esophageal dysmotility Abnormal CT scan, chest Bed sore Knee pain Hypoglycemia Folate deficiency Orthostatic hypotension Weakness (Acute) Vitamin B12 deficiency Fall (Acute) Severe morning sleep inertia Multiple pulmonary nodules determined by computed tomography of lung Anemia (Acute) Schizoaffective disorder (Chronic) Neuropathic pain Enuresis, nocturnal only Iron deficiency anemia Osteoarthritis of right knee Drug-induced parkinsonism Vitamin D deficiency Bilateral lumbar radiculopathy (Acute) Cataract (Acute) Gait instability (Acute) Hypertension (Acute) 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 Hypothyroidism Hyperlipidemia Dizziness (Chronic) Medical History AMS (altered mental status) Calf swelling Schizoaffective disorder Multiple pulmonary nodules pt unsure Vilensky Hypothyroidism HTN (hypertension) Hyperlipidemia Drug-induced parkinsonism pt unsure - sometimes has tremors Dizziness Type 2 diabetes mellitus Cataract Bilateral Anemia Pneumonia Currently on 3x antibiotics for 10 days - Thee - pt denies symptoms "was just found on CT scan" Anxiety Poor historian Hx of diverticulitis of colon History of colon polyps Brain TIA unsure "2019 maybe, not sure" Depression Frequent falls most recent 01/09/24 [facility] Chronic back pain GERD (gastroesophageal reflux disease) Asthma inhaler prn Constipation Surgical History History of removal of cyst benign cyst removed right breast History of colonoscopy History of tooth extraction all teeth removed History of tonsillectomy and adenoidectomy Family History Grandmother (Paternal) Diabetes Grandmother (Maternal) Diabetes Mother Anemia Bipolar disorder Cardiomyopathy Coronary heart disease Father Diabetes FH: kidney cancer Other No family history of adverse response to anesthesia Parkinson disease Parkinsonian syndrome Social History Smoking Status: Never smoker Second Hand Exposure: No; Do You Dip or Chew Tobacco: No; Hx Alcohol Use: No Hx Substance Use: No Preferred Language: Kyrgyz Communication Ability: Effective Visual Impairment: No Limitations Hearing Ability: Normal 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 Beliefs That Will Affect Care: None marital status: Single Current Living Situation: Alone Current Living Situation Comment: Lives alone and does not want to continue to live by herself Feels Safe at Home: Yes Gender Identity: Female Assistive Devices: Walker Allergies Allergies Allergy/AdvReac Type Severity Reaction Status Date / Time lithium Allergy Unknown Unknown Verified 12/28/24 14:38 escitalopram AdvReac Severe Manic Verified 12/28/24 14:38 haloperidol AdvReac Intermediate dystonia Verified 12/28/24 14:38 Penicillins AdvReac Intermediate Gastrointestinal Verified 12/28/24 14:38 Upset valproic acid AdvReac Intermediate Leg Verified 12/28/24 14:38 Swelling Home Meds Home Medications Medication Instructions Recorded Confirmed clozapine 100 mg tablet 300 mg PO HS 01/28/18 12/28/24 lamotrigine 200 mg tablet 200 mg PO BID 02/25/23 12/28/24 (Lamictal) quetiapine 300 mg tablet (Seroquel) 300 mg PO HS 02/27/23 12/28/24 quetiapine 100 mg tablet 100 mg PO QAM 01/17/24 12/28/24 clozapine 100 mg tablet 100 mg PO QAM 09/27/24 12/28/24 clozapine 50 mg tablet 50 mg PO BID 09/27/24 12/28/24 Previous Rx's Medication Instructions Recorded polyethylene glycol 3350 17 17 g PO DAILY PRN constipation 12/20/22 gram/dose oral powder (Miralax) #119 grams cholecalciferol (vitamin D3) 25 25 mcg PO BID 90 days #180 tabs 02/07/24 mcg (1,000 unit) tablet metformin 500 mg tablet,extended 1,000 mg (2 x 500 mg) PO QAM #180 02/10/24 release 24 hr tabs omeprazole 20 mg capsule,delayed 40 mg (2 x 20 mg) PO QAM 90 days 03/11/24 release #180 caps blood-glucose meter (OneTouch #1 ea 03/27/24 Ultra2 Meter) blood sugar diagnostic (OneTouch #100 ea 03/29/24 Ultra Test strips) hydrophilic 1 applic topical TID PRN dry skin 04/13/24 #113 grams lancets 30 gauge (OneTouch #100 ea 04/14/24 UltraSoft 2 Lancet) aspirin 81 mg tablet,delayed 81 mg PO QAM #90 tabs 04/15/24 release (Enteric Coated Aspirin) levothyroxine 150 mcg tablet 150 mcg PO QAM #90 tabs 06/02/24 rosuvastatin 20 mg tablet 20 mg PO HS #90 tabs 08/14/24 blood sugar diagnostic (OneTouch #100 ea 10/13/24 Ultra Test strips) lancets 33 gauge (OneTouch Delica #100 ea 10/13/24 Plus Lancet) miscellaneous medical supply #1 ea 10/13/24 (Blood Pressure Cuff) acetaminophen 325 mg tablet 650 mg (2 x 325 mg) PO Q8 PRN pain 12/18/24 #240 tabs ferrous sulfate 325 mg (65 mg 325 mg PO DAILY #30 tabs 12/22/24 iron) tablet (Iron (ferrous sulfate)) gabapentin 300 mg capsule 300 mg PO HS #30 caps 12/22/24 (Neurontin) meclizine 12.5 mg tablet 25 mg (2 x 12.5 mg) PO TID PRN 12/22/24 dizziness #168 tabs cyanocobalamin (vitamin B-12) 500 500 mcg PO QAM #30 tabs 12/23/24 mcg tablet folic acid 1 mg tablet 1 mg PO QAM #30 tabs 12/23/24 Results & Data (ED) Vital Signs Vital Signs - 24 hr 12/28/24 11:40 12/28/24 11:40 12/28/24 11:40 Temperature 36.4 C 36.4 C Temperature Source Oral Oral Pulse Rate - Lying Pulse Rate - Sitting Pulse Rate - Standing Pulse Rate 82 Pulse Rate [Left Radial] 82 Pulse Rhythm Regular Pulse Rhythm [Left Radial] Regular Pulse Strength Normal Pulse Strength [Left Radial] Normal Respiratory Rate 20 20 Respiratory Effort / Characteristics Non-Labored Non-Labored Respiratory Depth Normal Normal Respiratory Pattern Regular Regular Blood Pressure - Lying Blood Pressure - Sitting Blood Pressure- Standing Blood Pressure 148/105 H Blood Pressure [Left Arm] 148/105 H Blood Pressure Mean 119 Blood Pressure Mean [Left Arm] 119 Blood Pressure Position Sitting Blood Pressure Position [Left Arm] Sitting Pulse Oximetry 99 99 Oxygen Delivery Method Room Air Room Air Room Air Sepsis Recent Fever Within 48 Hours No Sepsis New/Unexplained Change in Mental Status N/A Sepsis Action Taken by Nursing No Action Required 12/28/24 12:14 12/28/24 13:28 12/28/24 14:02 Temperature Temperature Source Pulse Rate - Lying 82 Pulse Rate - Sitting 82 Pulse Rate - Standing 84 Pulse Rate 81 Pulse Rate [Left Radial] Pulse Rhythm Pulse Rhythm [Left Radial] Pulse Strength Pulse Strength [Left Radial] Respiratory Rate Respiratory Effort / Characteristics Respiratory Depth Respiratory Pattern Blood Pressure - Lying 159/97 H Blood Pressure - Sitting 170/101 H Blood Pressure- Standing 179/107 H Blood Pressure Blood Pressure [Left Arm] Blood Pressure Mean Blood Pressure Mean [Left Arm] Blood Pressure Position Blood Pressure Position [Left Arm] Pulse Oximetry 99 Oxygen Delivery Method Room Air Sepsis Recent Fever Within 48 Hours Sepsis New/Unexplained Change in Mental Status Sepsis Action Taken by Nursing 12/28/24 15:03 Temperature Temperature Source Pulse Rate - Lying Pulse Rate - Sitting Pulse Rate - Standing Pulse Rate Pulse Rate [Left Radial] 79 Pulse Rhythm Pulse Rhythm [Left Radial] Pulse Strength Pulse Strength [Left Radial] Respiratory Rate 18 Respiratory Effort / Characteristics Respiratory Depth Respiratory Pattern Blood Pressure - Lying Blood Pressure - Sitting Blood Pressure- Standing Blood Pressure Blood Pressure [Left Arm] 157/89 H Blood Pressure Mean Blood Pressure Mean [Left Arm] 111 Blood Pressure Position Blood Pressure Position [Left Arm] Pulse Oximetry 100 Oxygen Delivery Method Sepsis Recent Fever Within 48 Hours Sepsis New/Unexplained Change in Mental Status Sepsis Action Taken by Skilled Nursing Medications Current Medication List: was personally reviewed by me Laboratory Data Attestation: I reviewed the patient's lab results. 12/28/24 12:22 12/28/24 12:22 Lab Results 12/28/24 12/28/24 12/28/24 Range/Units 12:22 13:03 13:10 WBC 6.21 (4.8-10.8) K/ul RBC 3.71 L (4.20-5.40) M/uL Hgb 11.0 L (12.0-16.0) g/dl Hct 35.4 L (37.0-47.0) % MCV 95.4 (80.0-100.0) fL MCH 29.6 (25.0-34.0) pg MCHC 31.1 L (32.0-36.0) g/dL RDW Std Deviation 49.0 H (36.4-46.3) fL RDW Coeff of Radha 13.8 (11.5-14.5) % Plt Count 229 (130-400) K/uL MPV 9.2 L (9.4-12.4) fL Immature Gran % (Auto) 0.8 % Neut % (Auto) 78.4 % Lymph % (Auto) 12.9 % [place] % (Auto) 6.3 % Eos % (Auto) 1.1 % Baso % (Auto) 0.5 % Neut # (Auto) 4.87 (1.40-6.50) K/uL Lymph # (Auto) 0.80 L (1.20-3.40) K/uL [place] # (Auto) 0.39 (0.11-0.59) K/uL Eos # (Auto) 0.07 (0.00-0.50) K/uL Baso # (Auto) 0.03 (0.00-0.20) K/uL Immature Gran # (Auto) 0.05 (0.01-0.20) K/uL PT 10.9 (9.0-12.0) Seconds INR 1.0 (0.9-1.1) APTT 27 (21-31) Seconds PTT Ratio 1.0 Sodium 139 (136-145) mmol/L Potassium 4.2 (3.5-5.1) mmol/L Chloride 104 (98-107) mmol/L Carbon Dioxide 27 (21-32) mmol/L Anion Gap 8 (3-11) BUN 14 (6-23) mg/dl Creatinine 0.92 (0.6-1.2) mg/dl Est Cr Clr Drug Dosing 70.1 ml/min eGFR 69.53 BUN/Creatinine Ratio 15.2 (10-20) Glucose 109 H (70-99(Fasting)) mg/dl Calcium 9.4 (8.6-10.3) mg/dl Magnesium 2.0 (1.7-2.4) mg/dl Total Bilirubin 0.4 (0.2-1.0) mg/dl AST 13 (13-39) U/L ALT 11 (7-52) U/L Alkaline Phosphatase 94 (34-104) U/L Troponin I High Sens 5.2 (0-14) pg/ml Total Protein 6.9 (6.0-8.3) gm/dl Albumin 4.5 (3.4-5.0) gm/dl Globulin 2.4 L (2.5-4.0) gm/dl Albumin/Globulin Ratio 1.9 (0.9-2) TSH 2.951 (0.300-4.500) uIu/ml Urine Color Yellow Urine Appearance Clear (Clear) Urine pH 6.5 (4.5-7.5) Ur Specific Patrick 1.006 (1.000-1.030) Urine Protein Negative (Negative) Urine Glucose (UA) Negative (Negative) Urine Ketones Negative (Negative) Urine Blood Negative (Negative) Urine Nitrite Negative (Negative) Urine Bilirubin Negative (Negative) Urine Urobilinogen Negative (Negative) Ur Leukocyte Esterase Negative (Negative) Urine Comment SARS-CoV-2 (PCR) NEGATIVE (Negative) Influenza Type A (PCR) Negative (Neg) Influenza Type B (PCR) Negative (Neg) RSV (RT-PCR) Negative (Neg) Administered Medications Discontinued Medications Sodium Chloride (Nss) 1,000 mls @ 999 mls/hr IV .Q1H1M DELMER Stop: 12/28/24 13:15 Last Infusion: 12/28/24 14:09 Dose: Infused Documented By: Admin: 12/28/24 12:52 Dose: 999 mls/hr Documented By: AGUSTIN Ioversol (Optiray 320 125ml) 120 ml IV ONCE ONE Stop: 12/28/24 13:45 Last Admin: 12/28/24 13:45 Dose: 120 ml Documented By: ANGEL LUIS Imaging Data Attestation: I personally reviewed and interpreted this imaging study as follows: Radiologist's Impression: Chest X-Ray 12/28/24 12:14 XR chest 1V portable CLINICAL HISTORY: dizzy COMPARISON STUDY: 09/27/2024 FINDINGS: There is stable cardiomegaly without pulmonary vascular congestion. No consolidation or pleural effusion seen. No pneumothorax. IMPRESSION: No acute findings. ACT 112: Negative or not required by law. Electronically signed by: Renato Gill M.D. 12/28/2024 12:[address] 12/28/24 12:25 CT head/brain wo con CLINICAL HISTORY: neuro deficit, acute stroke suspected. TECHNIQUE: Multiple axial CT images of the head were obtained without contrast. A dose lowering technique was utilized adhering to the principles of ALARA. COMPARISON: 09/30/2024 FINDINGS: No intracranial hemorrhage seen. No mass effect, midline shift, or hydrocephalus. There are stable mild chronic small vessel ischemic changes. No skull fracture seen. Visualized paranasal sinuses and mastoid air cells are clear. IMPRESSION: No acute findings. ACT 112: Negative or not required by law. The above report was generated using voice recognition software. It may contain grammatical, syntax or spelling errors. Electronically signed by: Renato Gill M.D. 12/28/2024 2:02 PM Head CTA 12/28/24 12:25 CT angio head w con CLINICAL HISTORY: neuro deficit, acute stroke suspected. TECHNIQUE: Unenhanced axial CT scan of the brain is performed. Subsequently, following the IV administration of 120 cc of Optiray, CT angiogram of the brain was performed from the skull base to the vertex. Images are reviewed in the axial, sagittal, and coronal planes. 3-D MIPS images are created and assessed. IV contrast was administered without complication. All measurements were obtained according to NASCET criteria. A dose lowering technique was utilized adhering to the principles of ALARA. CT DOSE: 1256 COMPARISON STUDY: 03/10/2023 FINDINGS: Distal vertebral and internal carotid arteries are patent. Basilar artery is widely patent. Anterior, middle, and posterior cerebral arteries are patent bilaterally. Cerebral venous sinuses opacify normally. IMPRESSION: No significant arterial narrowing or occlusion seen at the brain. ACT 112: Negative or not required by law. The above report was generated using voice recognition software. It may contain grammatical, syntax or spelling errors. Electronically signed by: Renato Gill M.D. 12/28/2024 2:05 PM Neck CTA 12/28/24 12:25 CT ANGIOGRAM OF THE NECK CLINICAL HISTORY: Dizziness. Stroke like symptoms. Neurological deficit. COMPARISON STUDY: CT angiogram of the neck dated 12/25/2023. TECHNIQUE: Following the IV administration of 120 of Optiray 320, CT angiogram of the neck was performed from the aortic arch to the skull base. Images are reviewed in the axial, sagittal, and coronal planes. 3-D MIPS images are created and assessed. IV contrast was administered without complication. All measurements were calculated based on NASCET criteria. A dose lowering technique was utilized adhering to the principles of ALARA. CT DOSE: 1255.86 mGy.cm FINDINGS: Thoracic aorta: Visualized portions of the thoracic aorta are normal in caliber. The aortic arch demonstrates standard 3-vessel anatomy. Right carotid arterial system: The right common carotid artery is widely patent, as are the right internal and external carotid arteries. Left carotid arterial system: The left common carotid artery is widely patent, as are the left internal and external carotid arteries. Vertebral arteries: Widely patent bilaterally and codominant in the neck. Subclavian arteries: Widely patent bilaterally. Intracranial vasculature: The visualized intracranial vessels at the skull base are patent. Jugular veins: Patent bilaterally. Brain parenchyma: The visualized brain parenchyma the skull base is within normal limits. Lung apices: Partially visualized upper lobe lung parenchyma appears clear. Soft tissues: The visualized pharyngeal soft tissues are normal in appearance noting angiographic phase technique. The oropharyngeal airway appears widely patent. The thyroid gland is atrophic. The salivary glands are normal in appearance. No cervical lymphadenopathy is seen. Skeletal structures: The visualized calvarium at the skull base appears intact. The imaged cervical spine is maintained Note multilevel spondylosis. Sinuses and mastoids: There is mild mucosal thickening within the maxillary antra. The mastoid air cells are well pneumatized. IMPRESSION: Unremarkable CT angiogram of the neck. ACT 112: Negative or not required by law. Electronically signed by: Ron Ortiz M.D. 12/28/2024 1:56 PM Discharge Plan Visit Data Chief Complaint: Dizziness ED Provider: Yang Najera ED Midlevel Provider: Abby Oropeza Discharge Problem: Weakness Patient Disposition: Admitted As Inpatient Condition: Fair Forms Stand Alone Forms: [facility] Prescriptions Prescriptions: No Action lamotrigine [Lamictal] 200 mg tablet 200 mg PO BID cholecalciferol (vitamin D3) 25 mcg (1,000 unit) tablet 25 mcg PO BID 90 Days Qty: 180 3RF metformin 500 mg tablet extended release 24 hr 1,000 mg PO QAM Qty: 180 3RF omeprazole 20 mg capsule,delayed release(DR/EC) 40 mg PO QAM 90 Days Qty: 180 2RF (DME) blood-glucose meter [OneTouch Ultra2 Meter] Misc See Rx Instructions .Route Qty: 1 0RF Rx Instructions: As directed (DME) OneTouch Ultra Test Strip See Rx Instructions .Route Qty: 100 3RF Rx Instructions: check bsg once daily (DME) lancets [OneTouch UltraSoft 2 Lancet] 30 gauge misc See Rx Instructions .Route Qty: 100 3RF Rx Instructions: check once daily aspirin [Enteric Coated Aspirin] 81 mg tablet,delayed release (DR/EC) 81 mg PO QAM Qty: 90 3RF levothyroxine 150 mcg tablet 150 mcg PO QAM Qty: 90 3RF rosuvastatin 20 mg tablet 20 mg PO HS Qty: 90 2RF acetaminophen 325 mg tablet 650 mg PO Q8 MDD 3000mg PRN (Reason: pain) Qty: 240 5RF ferrous sulfate [Iron (ferrous sulfate)] 325 mg (65 mg iron) tablet 325 mg PO DAILY Qty: 30 0RF Hold Instructions: Resume on 03/02/24. Hold due to constipation; can resume once bowel regimen is optimized Rx Instructions: Unable to verify OTC meds at this date/time. gabapentin [Neurontin] 300 mg capsule 300 mg PO HS Qty: 30 0RF meclizine 12.5 mg tablet 25 mg PO TID PRN (Reason: dizziness) Qty: 168 3RF folic acid 1 mg tablet 1 mg PO QAM Qty: 30 6RF cyanocobalamin (vitamin B-12) 500 mcg tablet 500 mcg PO QAM Qty: 30 6RF quetiapine [Seroquel] 300 mg tablet 300 mg PO HS hydrophilic Ointment 1 applic topical TID PRN (Reason: dry skin) Qty: 113 1RF (DME) Blood Pressure Cuff Misc See Rx Instructions .Route Qty: 1 0RF Rx Instructions: As directed (DME) OneTouch Ultra Test Strip See Rx Instructions .ROUTE .MEDSUPPLY Qty: 100 0RF Rx Instructions: As directed (DME) lancets [OneTouch Delica Plus Lancet] 33 gauge misc See Rx Instructions .Route Qty: 100 0RF Rx Instructions: As directed clozapine 100 mg Tablet 300 mg PO HS Rx Instructions: Take w/ 50mg to equal 350mg at bedtime polyethylene glycol 3350 [Miralax] 17 gram/dose powder 17 g PO DAILY PRN (Reason: constipation) Qty: 119 0RF quetiapine 100 mg Tablet 100 mg PO QAM clozapine 100 mg tablet 100 mg PO QAM Rx Instructions: Take w/ 50mg to equal 150mg in the morning clozapine 50 mg tablet 50 mg PO BID Rx Instructions: Take w/ 100mg to equal in the morning and w/ 300mg (100 x 3) to equal 350mg at bedtime Referrals Referrals: Hillary Clarke MD [Primary Care Provider] -
[2024-12-28 12:42] LABS: Hematocrit (blood only) 35.4 % (37.0-47.0); Hemoglobin 11.0 g/dl (12.0-16.0); Immature Granulocytes # (auto) 0.05 K/uL (0.01-0.20); Immature Granulocytes % (auto) 0.8 %; Mean Corpuscular Hemoglobin 29.6 pg (25.0-34.0); Mean Corpuscular Volume 95.4 fL (80.0-100.0); Platelet Count 229 K/uL (130-400); RDW Standard Deviation 49.0 fL (36.4-46.3); Red Blood Count 3.71 M/uL (4.20-5.40); White Blood Count 6.21 K/ul (4.8-10.8)
--- NOTE | 2024-12-28 12:50 | XRay Report ---
XR chest 1V portable CLINICAL HISTORY: dizzy COMPARISON STUDY: 09/27/2024 FINDINGS: There is stable cardiomegaly without pulmonary vascular congestion. No consolidation or ple ural effusion seen. No pneumothorax. IMPRESSION: No acute findings. ACT 112: Negative or not required by law. Electronically signed by: Renato Gill M.D. 12/28/2024 12:48 PM
[2024-12-28] MEDS: SODIUM CHLORIDE 0.9% 1,000 ML IV SCH (12:52)
[2024-12-28 13:01] LABS: Alanine Aminotransferase 11.0 U/L (7-52); Albumin Globulin Ratio 1.9 (0.9-2); Albumin Level 4.5 gm/dl (3.4-5.0); Alkaline Phosphatase 94.0 U/L (34-104); Anion Gap 8.0 (3-11); Bilirubin,Total 0.4 mg/dl (0.2-1.0); Blood Urea Nitrogen 14.0 mg/dl (6-23); Calcium 9.4 mg/dl (8.6-10.3); Carbon Dioxide 27.0 mmol/L (21-32); Chloride 104.0 mmol/L (98-107); Creatinine Clr Calc Pharmacy 70.1 ml/min; Globulin 2.4 gm/dl (2.5-4.0); Glucose 109.0 mg/dl (70-99(Fasting)); Magnesium 2.0 mg/dl (1.7-2.4); Potassium 4.2 mmol/L (3.5-5.1); Sodium 139.0 mmol/L (136-145); Total Protein 6.9 gm/dl (6.0-8.3)
[2024-12-28 13:17] LABS: Thyroid Stimulating Hormone 2.951 uIu/ml (0.300-4.500)
[2024-12-28 13:20] LABS: INR 1.0 (0.9-1.1); Partial Thromboplastin Time 27 Seconds (21-31); Prothrombin Time 10.9 Seconds (9.0-12.0)
[2024-12-28] MEDS: OPTIRAY 320 125ml IV ONE (13:45)
--- NOTE | 2024-12-28 13:58 | CT Scan Report ---
CT ANGIOGRAM OF THE NECK CLINICAL HISTORY: Dizziness. Stroke like symptoms. Neurological deficit. COMPARISON STUDY: CT angiogram of the neck dated 12/25/2023. TECHNIQUE: Following the IV administration of 120 of Optiray 320, CT angiogram of the neck was perfor med from the aortic arch to the skull base. Images are reviewed in the axial, sagittal, and coronal p lanes. 3-D MIPS images are created and assessed. IV contrast was administered without complication. A ll measurements were calculated based on NASCET criteria. A dose lowering technique was utilized adh ering to the principles of ALARA. CT DOSE: 1255.86 mGy.cm FINDINGS: Thoracic aorta: Visualized portions of the thoracic aorta are normal in caliber. The aortic arch demo nstrates standard 3-vessel anatomy. Right carotid arterial system: The right common carotid artery is widely patent, as are the right int ernal and external carotid arteries. Left carotid arterial system: The left common carotid artery is widely patent, as are the left international marketing coordinator al and external carotid arteries. Vertebral arteries: Widely patent bilaterally and codominant in the neck. Subclavian arteries: Widely patent bilaterally. Intracranial vasculature: The visualized intracranial vessels at the skull base are patent. Jugular veins: Patent bilaterally. Brain parenchyma: The visualized brain parenchyma the skull base is within normal limits. Lung apices: Partially visualized upper lobe lung parenchyma appears clear. Soft tissues: The visualized pharyngeal soft tissues are normal in appearance noting angiographic pha se technique. The oropharyngeal airway appears widely patent. The thyroid gland is atrophic. The sali vary glands are normal in appearance. No cervical lymphadenopathy is seen. Skeletal structures: The visualized calvarium at the skull base appears intact. The imaged cervical s pine is maintained Note multilevel spondylosis. Sinuses and mastoids: There is mild mucosal thickening within the maxillary antra. The mastoid air ce lls are well pneumatized. IMPRESSION: Unremarkable CT angiogram of the neck. ACT 112: Negative or not required by law. Electronically signed by: Ron Ortiz M.D. 12/28/2024 1:56 PM
[2024-12-28 13:59] LABS: Appearance Urine Clear (Clear); Glucose Urine UA Negative (Negative)
[2024-12-28 14:01] LABS: Influenza A virus by PCR Negative (Neg); Influenza B virus by PCR Negative (Neg); SARS CoV2 RNA(COVID-19) Ceph NEGATIVE (Negative)
--- NOTE | 2024-12-28 14:04 | CT Scan Report ---
CT head/brain wo con CLINICAL HISTORY: neuro deficit, acute stroke suspected. TECHNIQUE: Multiple axial CT images of the head were obtained without contrast. A dose lowering tech nique was utilized adhering to the principles of ALARA. COMPARISON: 09/30/2024 FINDINGS: No intracranial hemorrhage seen. No mass effect, midline shift, or hydrocephalus. There are stable mild chronic small vessel ischemic changes. No skull fracture seen. Visualized paranasal sinu ses and mastoid air cells are clear. IMPRESSION: No acute findings. ACT 112: Negative or not required by law. The above report was generated using voice recognition software. It may contain grammatical, syntax o r spelling errors. Electronically signed by: Renato Gill M.D. 12/28/2024 2:02 PM
--- NOTE | 2024-12-28 14:07 | CT Scan Report ---
CT angio head w con CLINICAL HISTORY: neuro deficit, acute stroke suspected. TECHNIQUE: Unenhanced axial CT scan of the brain is performed. Subsequently, following the IV adminis tration of 120 cc of Optiray, CT angiogram of the brain was performed from the skull base to the vert ex. Images are reviewed in the axial, sagittal, and coronal planes. 3-D MIPS images are created and a ssessed. IV contrast was administered without complication. All measurements were obtained according to NASCET criteria. A dose lowering technique was utilized adhering to the principles of ALARA. CT DOSE: 1256 COMPARISON STUDY: 03/10/2023 FINDINGS: Distal vertebral and internal carotid arteries are patent. Basilar artery is widely patent. Anterior, middle, and posterior cerebral arteries are patent bilaterally. Cerebral venous sinuses op acify normally. IMPRESSION: No significant arterial narrowing or occlusion seen at the brain. ACT 112: Negative or not required by law. The above report was generated using voice recognition software. It may contain grammatical, syntax o r spelling errors. Electronically signed by: Renato Gill M.D. 12/28/2024 2:05 PM
[2024-12-28] MEDS ORDERED: POLYETHYLENE (MIRALAX) 17 GM PACK PO PRN (14:52)
[2024-12-28] MEDS ORDERED: CARBOHYDRATES FOR HYPOGLYCEMIA PO PRN (14:57)
[2024-12-28] MEDS ORDERED: ALUMINUM/MAGNESIUM SUSP 30 ML UDC PO PRN (14:57)
[2024-12-28] MEDS ORDERED: ONDANSETRON INJ 2 MG/ML 2 ML VIAL IV PRN (14:57)
[2024-12-28] MEDS ORDERED: GLUCAGON FOR INJ 1 MG VIAL SQ PRN (14:57)
[2024-12-28] MEDS ORDERED: GLUCOSE 10 TAB/TUBE PO PRN (14:57)
[2024-12-28] MEDS ORDERED: GLUCOSE 40% GEL 15 GM TUBE PO PRN (14:57)
[2024-12-28] MEDS ORDERED: DEXTROSE 50% 50 ML SYRINGE IV PRN (14:57)
--- NOTE | 2024-12-28 14:59 | History & Physical Report ---
Date of Service December 28, 2024 Assessment & Plan (1) Lightheadedness: (2) Generalized weakness: (3) Schizoaffective disorder: (4) Diabetes mellitus type 2, controlled: Domitila Yan is a pleasant 64-year-old woman with past medical history of T2DM, hypothyroidism, schizoaffective disorder, hyperlipidemia, GERD, vertigo, frequent falls. She presented from home via EMS with lightheadedness. Lightheadedness, generalized weakness, malaise began on Monday 12/25 and worsened over the weekend. On day of arrival, patient felt too weak at home and was concerned about her lightheadedness resulting in a fall while being home alone. Workup in ED unremarkable with negative stroke workup, negative CXR, negative quad screen, negative UA, stable CBC, stable CMP, negative opponent, normal TSH. She was admitted for PT/OT evaluations and possible placement. #Lightheadedness | Generalized weakness | Malaise - No infectious etiology identified on admission - S/p 1 L NSS in ED - Has history of vertigo in past - continue Meclizine PRN - PT/OT consulted #T2DM | Diabetic polyneuropathy - Most recent A1c 6.3% in November 2023 - Home regimen: Metformin continue - Continue gabapentin 300 mg HS - Update A1c in a.m. #Hypothyroidism TSH WNL at 2.951 on admission. Continue Synthroid 150 mcg QAM #Schizoaffective disorder continue clozapine 150 mg QAM and 350 mg HS, lamotrigine 200 mg BID, Seroquel 100 mg QAM and 300 mg HS #Hyperlipidemia continue rosuvastatin 20 mg HS #GERD continue PPI VTE PPx: Lovenox Dispo: Observation on [facility] Reviewed outpatient records Updated mental health outpatient bottle caser at bedside on admission History of Present Illness Chief Complaint: Dizziness Primary Care Provider: Hillary Clarke MD Farrah is a pleasant 64-year-old woman with past medical history of T2DM, hypothyroidism, schizoaffective disorder, hyperlipidemia, GERD, vertigo, frequent falls. She presented from home via EMS with lightheadedness. At the time of my exam, the patient was lying in bed in no acute distress with her outpatient mental health wet silk hanger present at bedside. She states on Monday 12/25, she began feeling lightheaded, weak, and had generalized malaise. The symptoms worsened over the weekend and this morning she felt too weak to get up and did not feel comfortable getting up while home alone due to her lightheadedness. She called EMS and with their assistance, she was able to get up and take her midodrine which she takes as needed for dizziness. She had some diarrhea last week but this has since resolved. Otherwise no sick symptoms. Denies cough, congestion, sore throat, headache, chest pain, heart palpitations, shortness of breath, abdominal pain, nausea, urinary symptoms. She reports a decreased oral intake x few days, which she attributes to a combination of a decreased appetite as well as decreased mobility due to weakness to get food/drink. She had a stroke workup completed in the ED which was negative. ED provider discussed her returning home, however given her generalized weakness, patient did not feel comfortable returning home alone. Patient reports that she took all of her regular morning medications today; no recent change in medications. She does not use supplemental oxygen at baseline. No CPAP at night. Vitals on admission significant for elevated BP at 148/105; vitals otherwise stable. Labs on admission are overall unremarkable. Anemia with hemoglobin at baseline. No leukocytosis. Electrolytes WNL. Liver enzymes WNL. TSH WNL. Troponin WNL. UA negative. Quad screen negative. CXR on admission reveals no acute findings. Head CT with no acute findings. Head and neck CTAs unremarkable. We discussed code status, patient wishes to be DNR/DNI. Allergies Allergy/AdvReac Type Severity Reaction Status Date / Time lithium Allergy Unknown Unknown Verified 12/28/24 14:38 escitalopram AdvReac Severe Manic Verified 12/28/24 14:38 haloperidol AdvReac Intermediate dystonia Verified 12/28/24 14:38 Penicillins AdvReac Intermediate Gastrointestinal Verified 12/28/24 14:38 Upset valproic acid AdvReac Intermediate Leg Verified 12/28/24 14:38 Swelling Home Medications Medication Instructions Recorded Confirmed Type clozapine 100 mg tablet 300 mg PO HS 01/28/18 12/28/24 History polyethylene glycol 3350 17 17 g PO DAILY PRN constipation 12/20/22 12/28/24 Rx gram/dose oral powder (Miralax) #119 grams lamotrigine 200 mg tablet 200 mg PO BID 02/25/23 12/28/24 History (Lamictal) quetiapine 300 mg tablet (Seroquel) 300 mg PO HS 02/27/23 12/28/24 History quetiapine 100 mg tablet 100 mg PO QAM 01/17/24 12/28/24 History cholecalciferol (vitamin D3) 25 25 mcg PO BID 90 days #180 tabs 02/07/24 12/28/24 Rx mcg (1,000 unit) tablet blood-glucose meter (OneTouch #1 ea 03/27/24 10/13/24 Rx Ultra2 Meter) blood sugar diagnostic (OneTouch #100 ea 03/29/24 10/13/24 Rx Ultra Test strips) hydrophilic 1 applic topical TID PRN dry skin 04/13/24 12/28/24 Rx #113 grams lancets 30 gauge (OneTouch #100 ea 04/14/24 10/13/24 Rx UltraSoft 2 Lancet) aspirin 81 mg tablet,delayed 81 mg PO QAM #90 tabs 04/15/24 12/28/24 Rx release (Enteric Coated Aspirin) levothyroxine 150 mcg tablet 150 mcg PO QAM #90 tabs 06/02/24 12/28/24 Rx rosuvastatin 20 mg tablet 20 mg PO HS #90 tabs 08/14/24 12/28/24 Rx clozapine 100 mg tablet 100 mg PO QAM 09/27/24 12/28/24 History clozapine 50 mg tablet 50 mg PO BID 09/27/24 12/28/24 History blood sugar diagnostic (OneTouch #100 ea 10/13/24 10/13/24 Rx Ultra Test strips) lancets 33 gauge (OneTouch Delica #100 ea 10/13/24 10/13/24 Rx Plus Lancet) miscellaneous medical supply #1 ea 10/13/24 10/13/24 Rx (Blood Pressure Cuff) acetaminophen 325 mg tablet 650 mg (2 x 325 mg) PO Q8 PRN pain 12/18/24 12/28/24 Rx #240 tabs ferrous sulfate 325 mg (65 mg 325 mg PO DAILY #30 tabs 12/22/24 12/28/24 Rx iron) tablet (Iron (ferrous sulfate)) gabapentin 300 mg capsule 300 mg PO HS #30 caps 12/22/24 12/28/24 Rx (Neurontin) meclizine 12.5 mg tablet 25 mg (2 x 12.5 mg) PO TID PRN 12/22/24 12/28/24 Rx dizziness #168 tabs cyanocobalamin (vitamin B-12) 500 500 mcg PO QAM #30 tabs 12/23/24 12/28/24 Rx mcg tablet folic acid 1 mg tablet 1 mg PO QAM #30 tabs 12/23/24 12/28/24 Rx metformin 500 mg tablet,extended 1,000 mg (2 x 500 mg) PO QAM #120 12/29/24 Rx release 24 hr tabs omeprazole 20 mg capsule,delayed 40 mg (2 x 20 mg) PO QAM 30 days 12/29/24 Rx release #60 caps clopidogrel 75 mg tablet 75 mg PO QAM #30 tabs 01/01/25 Rx Past Med/Surg History Problem List (Updated 12/30/24 @ 16:29 by Deborah Mills PA-C) Cerebellar stroke, acute Weakness (Acute) Diabetes mellitus type 2, controlled Generalized weakness Lightheadedness Venous stasis dermatitis of both lower extremities (Acute) Low T4 (Acute) Fall (Acute) Anemia (Acute) Dizziness (Acute) Urine incontinence Tremor Esophageal dysmotility Abnormal CT scan, chest Bed sore Knee pain Hypoglycemia Folate deficiency Orthostatic hypotension Weakness (Acute) Vitamin B12 deficiency Fall (Acute) Severe morning sleep inertia Multiple pulmonary nodules determined by computed tomography of lung Anemia (Acute) Schizoaffective disorder (Chronic) Neuropathic pain Enuresis, nocturnal only Iron deficiency anemia Osteoarthritis of right knee Drug-induced parkinsonism Vitamin D deficiency Bilateral lumbar radiculopathy (Acute) Cataract (Acute) Gait instability (Acute) Hypertension (Acute) 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 Hypothyroidism Hyperlipidemia Dizziness (Chronic) Medical History AMS (altered mental status) Calf swelling Schizoaffective disorder Multiple pulmonary nodules pt unsure Thee Hypothyroidism HTN (hypertension) Hyperlipidemia Drug-induced parkinsonism pt unsure - sometimes has tremors Dizziness Type 2 diabetes mellitus Cataract Bilateral Anemia Pneumonia Currently on 3x antibiotics for 10 days - Thee - pt denies symptoms "was just found on CT scan" Anxiety Poor historian Hx of diverticulitis of colon History of colon polyps Brain TIA unsure "2019 maybe, not sure" Depression Frequent falls most recent 01/09/24 [facility] Chronic back pain GERD (gastroesophageal reflux disease) Asthma inhaler prn Constipation Surgical History History of removal of cyst benign cyst removed right breast History of colonoscopy History of tooth extraction all teeth removed History of tonsillectomy and adenoidectomy Family History Grandmother (Paternal) Diabetes Grandmother (Maternal) Diabetes Mother Anemia Bipolar disorder Cardiomyopathy Coronary heart disease Father Diabetes FH: kidney cancer Other No family history of adverse response to anesthesia Parkinson disease Parkinsonian syndrome Social History Smoking Status: Never smoker Second Hand Exposure: No; Do You Dip or Chew Tobacco: No; Hx Alcohol Use: No Hx Substance Use: No Preferred Language: Comoran Communication Ability: Effective Visual Impairment: No Limitations Hearing Ability: Normal Pricing Strategist Required: No Beliefs That Will Affect Care: None marital status: Single Current Living Situation: Alone Current Living Situation Comment: Lives alone and does not want to continue to live by herself Feels Safe at Home: Yes Gender Identity: Female Assistive Devices: Raised Toilet Seat and Walker Review of Systems Review of Systems: All systems reviewed & are unremarkable except as noted in HPI & below Constitutional: + malaise and + weakness Physical Exam Physical Exam: General: No acute distress, nondiaphoretic, well-developed, well-nourished. Class II obesity. Skin: Warm, dry. No noted. 2+ peripheral edema to ankles bilaterally. HEENT: PERRLA. EOM intact. No nystagmus. Right monocular exotropia noted - baseline. Moist mucous membranes. Cardiac: Regular rate and rhythm without murmurs gallops or rubs. Pulm: Clear to auscultation bilaterally without wheezes, rales or rhonchi. Normal respiratory effort. 100% on room air. Abdominal: Soft, nontender, nondistended. Bowel sounds present. Neuro: A&O x3. No focal neurological deficits. Strength 5/5 in extremities. Results & Data Results & Data Vital Signs (Past 12 Hours) Vital Signs Temp Pulse Pulse Resp BP BP Pulse Ox 12/28/24 14:02 81 12/28/24 12:14 99 12/28/24 11:40 97.6 F 82 20 148/105 H 99 12/28/24 11:40 12/28/24 11:40 97.6 F 82 20 148/105 H 99 O2 Del Method 12/28/24 14:02 12/28/24 12:14 Room Air 12/28/24 11:40 Room Air 12/28/24 11:40 Room Air 12/28/24 11:40 Room Air Laboratory Results Reviewed CBC with differential Reviewed coags Reviewed CMP, chemistries Reviewed UA Reviewed quad screen Diagnostic Findings Reviewed CXR, head CT, head CTA, neck CTA, EKG Supervising Physician Co-Signing Physician Notes During face to face encounter, I obtained a history and physical examination, discussed plan of care with patient and answered any questions. I discussed plan of care with FABRICIO Mills. I reviewed above note and agree with it except for the following: Patient will be admitted for generalized malaise. Unsure cause, infectious workup has been negative. will consult PT.OT PG Care Time/CCT Total # of Minutes Spent Total Time Spent with Patient: Total time spent is greater than 50% in coordination of care (as documented) at patient's floor/unit and/or counseling patient: Coding Level of Care Code 78096 INT INP/OBS CARE 3/75MIN Diagnoses Lightheadedness R42 Generalized weakness R53.1 Schizoaffective disorder, bipolar type F25.0 Schizoaffective disorder type: bipolar Diabetes mellitus type 2, controlled E11.9 (3) Schizoaffective disorder Schizoaffective disorder type: bipolar Qualified Code(s): F25.0 - Schizoaffective disorder, bipolar type
--- NOTE | 2024-12-28 15:21 | Electrocardiogram Report ---
Test Reason : Blood Pressure : */* mmHG Vent. Rate : 82 BPM Atrial Rate : 82 BPM P-R Int : 170 ms QRS Dur : 108 ms QT Int : 420 ms P-R-T Axes : 36 -10 24 degrees QTcB Int : 490 ms Normal sinus rhythm Low voltage QRS Prolonged QT Abnormal ECG When compared with ECG of 27-Sep-2024 11:45, No significant change was found Confirmed by Pablo Long ([id number]) on 12/28/2024 3:21:10 PM Referred By: REFERRED SELF Confirmed By: Pablo Long
[2024-12-28] MEDS: CHOLECALCIFEROL 25 MCG (1000 UNITS) TAB PO SCH (21:38)
[2024-12-28] MEDS: GABAPENTIN 300 MG CAP PO SCH (21:40)
[2024-12-28] MEDS: INSULIN ASPART PER UNIT CHARGE SC SCH (21:40)
[2024-12-28] MEDS: lamoTRIgine 100 MG TAB PO SCH (21:41)
[2024-12-28] MEDS: ROSUVASTATIN CALCIUM 20 MG TAB PO SCH (21:42)
[2024-12-29] MEDS: LEVOTHYROXINE SODIUM 150 MCG TABLET PO SCH (05:43)
[2024-12-29 07:45] LABS: Hematocrit (blood only) 32.5 % (37.0-47.0); Hemoglobin 10.2 g/dl (12.0-16.0); Mean Corpuscular Hemoglobin 30.2 pg (25.0-34.0); Mean Corpuscular Volume 96.2 fL (80.0-100.0); Platelet Count 214 K/uL (130-400); RDW Standard Deviation 48.3 fL (36.4-46.3); Red Blood Count 3.38 M/uL (4.20-5.40); White Blood Count 6.07 K/ul (4.8-10.8)
[2024-12-29 08:13] LABS: Anion Gap 7.0 (3-11); Blood Urea Nitrogen 18.0 mg/dl (6-23); Calcium 8.8 mg/dl (8.6-10.3); Carbon Dioxide 27.0 mmol/L (21-32); Chloride 107.0 mmol/L (98-107); Creatinine Clr Calc Pharmacy 69.8 ml/min; Glucose 130.0 mg/dl (70-99(Fasting)); Potassium 4.3 mmol/L (3.5-5.1); Sodium 141.0 mmol/L (136-145)
[2024-12-29] MEDS: ACETAMINOPHEN 325 MG TAB PO PRN (08:59)
[2024-12-29] MEDS: ENOXAPARIN INJ 40 MG/0.4 ML SYR SQ SCH (09:02)
[2024-12-29] MEDS: FERROUS SULFATE 325 MG TAB PO SCH (09:03)
[2024-12-29] MEDS: FOLIC ACID 1 MG TAB PO SCH (09:03)
[2024-12-29] MEDS: MECLIZINE HCL 25 MG TAB PO PRN (09:03)
[2024-12-29] MEDS: ASPIRIN 81 MG ECTAB PO SCH (09:03)
[2024-12-29] MEDS: CYANOCOBALAMIN (B-12) 500 MCG TABLET PO SCH (09:04)
[2024-12-29 09:05] LABS: Hemoglobin A1C 6.6 % (4.5-5.6)
--- NOTE | 2024-12-29 11:40 | Hospitalist Progress Note ---
Date of Service December 29, 2024 Assessment & Plan (1) Lightheadedness: (2) Generalized weakness: (3) Schizoaffective disorder: (4) Diabetes mellitus type 2, controlled: Domitila Farrah is a pleasant 64-year-old woman with past medical history of T2DM, hypothyroidism, schizoaffective disorder, hyperlipidemia, GERD, vertigo, frequent falls. She presented from home via EMS with lightheadedness. Lightheadedness, generalized weakness, malaise began on Monday 12/25 and worsened over the weekend. On day of arrival, patient felt too weak at home and was concerned about her lightheadedness resulting in a fall while being home alone. Workup in ED unremarkable with negative stroke workup, negative CXR, negative quad screen, negative UA, stable CBC, stable CMP, negative opponent, normal TSH. She was admitted for PT/OT evaluations and possible placement. #Lightheadedness | Generalized weakness | Malaise - No infectious etiology identified on admission - Orthostatic VS negative - Has history of vertigo in past - continue Meclizine PRN. Was previously on midodrine, but this was discontinued in October and meclizine was started in its place - PT/OT recommending rehab #T2DM | Diabetic polyneuropathy - A1c 6.6% - Home regimen: Metformin continue - Continue gabapentin 300 mg HS #Hypothyroidism TSH WNL at 2.951 on admission. Continue Synthroid 150 mcg QAM #Schizoaffective disorder continue clozapine 150 mg QAM and 350 mg HS, lamotrigine 200 mg BID, Seroquel 100 mg QAM and 300 mg HS #Hyperlipidemia continue rosuvastatin 20 mg HS #GERD continue PPI VTE PPx: Lovenox Dispo: PT/OT recommending rehab, no referrals made yet Updated Lanie Zhang leather case finisher at bedside Confirmed home medications with outpatient pharmacy Admission and Anticipated Discharge Date Admission Date: December 28, 2024 Supervising Physician Co-Signing Physician Notes PA Supervision Note: I did not personally see or examine the patient today, but I verified all stacy points of RASHAD Mills's assessment and plan with the following exceptions/additions: None Subjective Patient seen and evaluated at bedside with her Lanie Zhang leather case finisher present. She reports feeling generally weak today. She continues to have lightheadedness but denies dizziness. She worked with therapy earlier and reports "it didn't go that well." She would be agreeable to rehab if that is what's recommended. We discussed her home medications, and her leather case finisher reports that her midodrine was discontinued in October when she was started on meclizine in its place. Farrah is saddened about her hospitalization. Emotional support provided. No additional complaints or concerns at this time. Physical Exam Physical Exam: General: No acute distress, nondiaphoretic, well-developed, well-nourished. Class II obesity. Skin: Warm, dry. No noted. 2+ peripheral edema to ankles bilaterally. HEENT: PERRLA. EOM intact. No nystagmus. Right monocular exotropia noted - baseline. Moist mucous membranes. Cardiac: Regular rate and rhythm without murmurs gallops or rubs. Pulm: Clear to auscultation bilaterally without wheezes, rales or rhonchi. Normal respiratory effort. 95% on room air. Abdominal: Soft, nontender, nondistended. Bowel sounds present. Neuro: A&O x3. No focal neurological deficits. Strength 5/5 in extremities. Results & Data Results & Data Vital Signs (Past 12 Hours) Vital Signs Temp Pulse Resp BP Pulse Ox O2 Del Method 12/29/24 11:22 97.9 F 76 14 119/73 95 Room Air 12/29/24 07:25 98.1 F 81 16 121/75 93 Room Air Laboratory Results Reviewed CBC, BMP PG Care Time/CCT Total # of Minutes Spent Total Time Spent with Patient: Total time spent is greater than 50% in coordination of care (as documented) at patient's floor/unit and/or counseling patient: Coding Level of Care Code 74768 SUB INP/OBS CARE 3/50MIN Diagnoses Lightheadedness R42 Generalized weakness R53.1 Schizoaffective disorder, bipolar type F25.0 Schizoaffective disorder type: bipolar Diabetes mellitus type 2, controlled E11.9 (3) Schizoaffective disorder Schizoaffective disorder type: bipolar Qualified Code(s): F25.0 - Schizoaffective disorder, bipolar type
[2024-12-30 07:29] LABS: Hematocrit (blood only) 32.7 % (37.0-47.0); Hemoglobin 10.2 g/dl (12.0-16.0); Mean Corpuscular Hemoglobin 29.9 pg (25.0-34.0); Mean Corpuscular Volume 95.9 fL (80.0-100.0); Platelet Count 214 K/uL (130-400); RDW Standard Deviation 48.9 fL (36.4-46.3); Red Blood Count 3.41 M/uL (4.20-5.40); White Blood Count 5.01 K/ul (4.8-10.8)
--- NOTE | 2024-12-30 08:54 | Hospitalist Progress Note ---
"Date of Service December 30, 2024 Assessment & Plan (1) Lightheadedness: (2) Generalized weakness: (3) Schizoaffective disorder: (4) Diabetes mellitus type 2, controlled: (5) Cerebellar stroke, acute: Plan Farrah is a pleasant 64-year-old woman with past medical history of T2DM, hypothyroidism, schizoaffective disorder, hyperlipidemia, GERD, vertigo, frequent falls. She presented from home via EMS with lightheadedness. Lightheadedness, generalized weakness, malaise began on Monday 12/25 and worsened over the weekend. On day of arrival, patient felt too weak at home and was concerned about her lightheadedness resulting in a fall while being home alone. No infectious etiology identified on admission. Workup revealed acute cerebellar stroke, likely the cause of her lightheadedness. PT and OT are recommending rehab, now awaiting placement. #Acute cerebellar stroke - likely the cause of her lightheadedness - Brain MRI revealed small acute infarction of right cerebellum. Motion artifact versus small acute infarction of left cerebellum. No evidence of other acute infarctions - Load with Plavix 300 mg x 1 now, then continue on Plavix 75 mg daily - Continue home aspirin 81 mg daily, Crestor 20 mg HS - could increase Crestor if needed pending lipid panel results - Lipid panel added to AM labs - Echocardiogram with bubble study ordered - Recommend 30 day director of cardiac rehabilitation on discharge #Generalized weakness - Orthostatic VS negative x 2 - Has history of vertigo in past - continue Meclizine PRN. Was previously on midodrine, but this was discontinued in October and meclizine was started in its place - PT/OT recommending rehab #T2DM | Diabetic polyneuropathy - A1c 6.6% - Home regimen: Metformin continue - Continue gabapentin 300 mg HS #Hypothyroidism TSH WNL at 2.951 on admission. Continue Synthroid 150 mcg QAM #Schizoaffective disorder continue clozapine 150 mg QAM and 350 mg HS, lamotrigine 200 mg BID, Seroquel 100 mg QAM and 300 mg HS #Hyperlipidemia continue rosuvastatin 20 mg HS #GERD continue PPI VTE PPx: Lovenox Dispo: PT/OT recommending rehab, referral made to [facility] Ordered brain MRI, echocardiogram Started Plavix Admission and Anticipated Discharge Date Admission Date: December 28, 2024 Supervising Physician Co-Signing Physician Notes PA Supervision Note: I did not personally see or examine the patient today, but I verified all stacy points of RASHAD Mills's assessment and plan with the following exceptions/additions: None Subjective Patient seen and evaluated in bedside chair. She reports feeling better today. She notes that her lightheadedness is improving. We discussed obtaining a brain MRI to evaluate for a cerebellar stroke. She has not had her repeat orthostatic vital signs checked yet. She has a strong appetite and is sleeping well overnight. No additional complaints or concerns at this time. Return to bedside in afternoon to inform patient of brain MRI results. She was very emotional hearing these results. Emotional support provided. Physical Exam Physical Exam: General: No acute distress, nondiaphoretic, well-developed, well-nourished. Class II obesity. Skin: Warm, dry. No noted. 2+ peripheral edema to ankles bilaterally. HEENT: PERRLA. EOM intact. No nystagmus. Right monocular exotropia noted - baseline. Moist mucous membranes. Cardiac: Regular rate and rhythm without murmurs gallops or rubs. Pulm: Clear to auscultation bilaterally without wheezes, rales or rhonchi. Normal respiratory effort. 95% on room air. Abdominal: Soft, nontender, nondistended. Bowel sounds present. Neuro: A&O x3. No focal neurological deficits. Results & Data Results & Data Vital Signs (Past 12 Hours) Vital Signs Temp Pulse Resp BP Pulse Ox O2 Del Method 12/30/24 07:44 98.2 F 81 18 137/79 95 Room Air 12/29/24 23:27 98.2 F 74 18 121/84 95 Room Air Laboratory Results Reviewed CBC Diagnostic Findings Reviewed brain MRI PG Care Time/CCT Total # of Minutes Spent Total Time Spent with Patient: Total time spent is greater than 50% in coordination of care (as documented) at patient's floor/unit and/or counseling patient: Coding Level of Care Code 63662 SUB INP/OBS CARE 3/50MIN Diagnoses Lightheadedness R42 Generalized weakness R53.1 Schizoaffective disorder, bipolar type F25.0 Schizoaffective disorder type: bipolar Diabetes mellitus type 2, controlled E11.9 Cerebellar stroke, acute I63.9 (3) Schizoaffective disorder Schizoaffective disorder type: bipolar Qualified Code(s): F25.0 - Schizoaffective disorder, bipolar type"
--- NOTE | 2024-12-30 12:28 | Magnetic Resonance Report ---
MR brain wo con CLINICAL HISTORY: Lightheadedness; h/o stroke, r/o cerebellar stroke COMPARISON STUDY: CT of 12/28/2024 and MRI of 03/10/2023 FINDINGS: There is motion artifact. There is a 8 mm area of restricted diffusion medial posterior inf erior right cerebellum. There is a possible tiny area of restricted diffusion versus motion artifact anterior left cerebellum. No other evidence of acute infarction seen. No mass effect, midline shift, or hydrocephalus. There are mild chronic small vessel ischemic changes. IMPRESSION: 1. Small acute infarction right cerebellum. Motion artifact versus small acute infarction left cerebe llum. No evidence of acute infarction seen. 2. Otherwise described ACT 112: Negative or not required by law. Electronically signed by: Renato Gill M.D. 12/30/2024 12:26 PM
[2024-12-30] MEDS: CLOPIDOGREL BISULFATE 300 MG TAB PO STA (17:10)
[2024-12-31 08:03] LABS: Hematocrit (blood only) 31.7 % (37.0-47.0); Hemoglobin 10.1 g/dl (12.0-16.0); Mean Corpuscular Hemoglobin 30.1 pg (25.0-34.0); Mean Corpuscular Volume 94.6 fL (80.0-100.0); Platelet Count 211 K/uL (130-400); RDW Standard Deviation 46.6 fL (36.4-46.3); Red Blood Count 3.35 M/uL (4.20-5.40); White Blood Count 5.45 K/ul (4.8-10.8)
[2024-12-31 08:49] LABS: Anion Gap 6.0 (3-11); Blood Urea Nitrogen 21.0 mg/dl (6-23); Calcium 8.6 mg/dl (8.6-10.3); Carbon Dioxide 26.0 mmol/L (21-32); Chloride 108.0 mmol/L (98-107); Cholesterol 104.0 mg/dl (0-200); Creatinine Clr Calc Pharmacy 66.3 ml/min; Glucose 131.0 mg/dl (70-99(Fasting)); HDL Cholesterol 38.0 mg/dl; Potassium 4.1 mmol/L (3.5-5.1); Sodium 140.0 mmol/L (136-145); Triglycerides 200.0 mg/dl (0-150)
[2024-12-31] MEDS: CLOPIDOGREL BISULFATE 75 MG TAB PO SCH (09:11)
[2024-12-31] MEDS ORDERED: PHARMACIST DISCHARGE MED REC CONSULT PRN (10:10)
--- NOTE | 2024-12-31 12:51 | Hospitalist Progress Note ---
"Date of Service December 31, 2024 Assessment & Plan (1) Lightheadedness: (2) Generalized weakness: (3) Schizoaffective disorder: (4) Diabetes mellitus type 2, controlled: (5) Cerebellar stroke, acute: Plan Farrah is a pleasant 64-year-old woman with past medical history of T2DM, hypothyroidism, schizoaffective disorder, hyperlipidemia, GERD, vertigo, frequent falls. She presented from home via EMS with lightheadedness. Lightheadedness, generalized weakness, malaise began on Monday 12/25 and worsened over the weekend. On day of arrival, patient felt too weak at home and was concerned about her lightheadedness resulting in a fall while being home alone. No infectious etiology identified on admission. Workup revealed acute cerebellar stroke, likely the cause of her lightheadedness. PT and OT are recommending rehab, now awaiting placement. #Acute cerebellar stroke - likely the cause of her lightheadedness - Brain MRI revealed small acute infarction of right cerebellum. Motion artifact versus small acute infarction of left cerebellum. No evidence of other acute infarctions - Continue on Plavix 75 mg daily - Continue home aspirin 81 mg daily, Crestor 20 mg HS - Lipid panel is slightly elevated triglycerides at 200 (does have diabetes) and slightly elevated VLDL at 40, otherwise WNL and total chol around 100--> would not increase Crestor dose any further - Echocardiogram with bubble study pending report - Recommend 30 day monitor tech on discharge to assess for occult Afib/flutter #Generalized weakness - Orthostatic VS negative x 2 - Has history of vertigo in past - continue Meclizine PRN. Was previously on midodrine, but this was discontinued in October and meclizine was started in its place - PT/OT recommending rehab #T2DM | Diabetic polyneuropathy - A1c 6.6% - Home regimen: Metformin continue - Continue gabapentin 300 mg HS - Recommend SGLT2 or GLP-1 for cardiovascular mortality benefit in setting of acute stroke with history of diabetes will defer to outpatient PCP #Hypothyroidism TSH WNL at 2.951 on admission. Continue Synthroid 150 mcg QAM #Schizoaffective disorder continue clozapine 150 mg QAM and 350 mg HS, lamotrigine 200 mg BID, Seroquel 100 mg QAM and 300 mg HS #Hyperlipidemia continue rosuvastatin 20 mg HS #GERD continue PPI VTE PPx: Lovenox Dispo: PT/OT recommending rehab, referral made to [facility] Updated tyrell fang keycase assembler at bedside Discussed medication recommendations with pharmacy Admission and Anticipated Discharge Date Admission Date: December 30, 2024 Supervising Physician Co-Signing Physician Notes PA Supervision Note: I did not personally see or examine the patient today, but I verified all stacy points of RASHAD Mills's assessment and plan with the following exceptions/additions: None Subjective Patient seen and evaluated in bedside chair with her tyrell fang keycase assembler present. She reports feeling better physically today but her spirits are still down from the news regarding her acute CVA yesterday. We again discussed the management of her acute CVA. Emotional support provided throughout visit. Farrah is appreciative. She reports her lightheadedness is still present intermittently but improved compared to a few days ago. Still waiting for rehab placement. No additional complaints or concerns at this time. Physical Exam Physical Exam: General: No acute distress, nondiaphoretic, well-developed, well-nourished. Class II obesity. Skin: Warm, dry. No noted. 2+ peripheral edema to ankles bilaterally. HEENT: PERRLA. EOM intact. No nystagmus. Right monocular exotropia noted - baseline. Moist mucous membranes. Cardiac: Regular rate and rhythm without murmurs gallops or rubs. Pulm: Clear to auscultation bilaterally without wheezes, rales or rhonchi. Normal respiratory effort. 95% on room air. Abdominal: Soft, nontender, nondistended. Bowel sounds present. Neuro: A&O x3. No focal neurological deficits. Results & Data Results & Data Vital Signs (Past 12 Hours) Vital Signs Temp Pulse Resp BP Pulse Ox O2 Del Method 12/31/24 07:53 98.2 F 79 16 137/84 95 Room Air Laboratory Results Reviewed CBC Reviewed BMP Reviewed lipid panel PG Care Time/CCT Total # of Minutes Spent Total Time Spent with Patient: Total time spent is greater than 50% in coordination of care (as documented) at patient's floor/unit and/or counseling patient: Coding Level of Care Code 44115 SUB INP/OBS CARE 3/50MIN Diagnoses Lightheadedness R42 Generalized weakness R53.1 Schizoaffective disorder, bipolar type F25.0 Schizoaffective disorder type: bipolar Diabetes mellitus type 2, controlled E11.9 Cerebellar stroke, acute I63.9 (3) Schizoaffective disorder Schizoaffective disorder type: bipolar Qualified Code(s): F25.0 - Schizoaffective disorder, bipolar type"
--- NOTE | 2024-12-31 13:02 | Pharmacy Report ---
- Date of Service December 31, 2024 - Pharmacy CVA/TIA Medication Review Medications to Prevent Stroke handout has been added to the patients discharge packet. Antiplatelet(s) * Aspirin 81 mg PO daily + clopidogrel 75 mg PO daily Cholesterol * High intensity statin: rosuvastatin 20 mg daily DVT Prophylaxis * Enoxaparin SQ Therapeutic Anticoagulation * No history of Afib/Aflutter noted Type 2 Diabetes * Patient has T2DM, but per Deborah Mills PA-C, a diabetes medication with proven CVD benefit will be deferred to their outpatient provider due to familiarity with risks/benefits of such therapies. "Medications to prevent stroke" handout has already been added to the patient's discharge packet, which instructs the patient to follow up with their outpatient provider to evaluate which diabetes medication with proven CVD benefit is best for them
[2024-12-31 14:33] VITALS: O2SAT 96
--- NOTE | 2024-12-31 17:35 | XCELERA ---
[id number] \\[id number]
[2025-01-01 07:46] VITALS: BP 132/86; PULSE 77; RESP 14; TEMP 98.2
[2025-01-01] MEDS ORDERED: STROKE PATIENT DISCHARGE STA (10:57)
--- NOTE | 2025-01-01 12:32 | Discharge Summary ---
"Discharge Summary Date of Service January 01, 2025 Principal Dx & Hospital Course #1 = Principal Diagnosis (1) Lightheadedness: (2) Generalized weakness: (3) Schizoaffective disorder: (4) Diabetes mellitus type 2, controlled: (5) Cerebellar stroke, acute: Domitila Yan is a pleasant 64-year-old woman with past medical history of T2DM, hypothyroidism, schizoaffective disorder, hyperlipidemia, GERD, vertigo, frequent falls. She presented from home via EMS with lightheadedness. Lightheadedness, generalized weakness, malaise began on Monday 12/25 and worsened over the weekend. On day of arrival, patient felt too weak at home and was concerned about her lightheadedness resulting in a fall while being home alone. No infectious etiology identified on admission. Workup revealed acute cerebellar stroke, likely the cause of her lightheadedness. PT and OT are recommending rehab, now awaiting placement. #Acute cerebellar stroke - likely the cause of her lightheadedness - Brain MRI revealed small acute infarction of right cerebellum. Motion artifact versus small acute infarction of left cerebellum. No evidence of other acute infarctions - Continue on Plavix 75 mg daily, aspirin 81 mg daily, Crestor 20 mg HS - Continue DAPT x 3 weeks, then continue on Plavix monotherapy - Lipid panel is slightly elevated triglycerides at 200 (does have diabetes) and slightly elevated VLDL at 40, otherwise WNL and total chol around 100--> would not increase Crestor dose any further - Echocardiogram with bubble study notes normal systolic function with EF 65- 70%. No regional wall motion abnormalities. No LVH. Mildly dilated right ventricle with normal systolic function. No significant valvular stenosis/regurgitation - Recommend 30 day hide inspector to assess for occult Afib/flutter #Generalized weakness - Orthostatic VS negative x 2 - Has history of vertigo in past - continue Meclizine PRN. Was previously on midodrine, but this was discontinued in October and meclizine was started in its place - PT/OT recommended rehab #T2DM | Diabetic polyneuropathy - A1c 6.6% - Home regimen: Metformin continue - Continue gabapentin 300 mg HS - Recommend SGLT2 or GLP-1 for cardiovascular mortality benefit in setting of acute stroke with history of diabetes will defer to outpatient PCP #Hypothyroidism TSH WNL at 2.951 on admission. Continue Synthroid 150 mcg QAM #Schizoaffective disorder continue clozapine 150 mg QAM and 350 mg HS, lamotrigine 200 mg BID, Seroquel 100 mg QAM and 300 mg HS #Hyperlipidemia continue rosuvastatin 20 mg HS #GERD continue PPI VTE PPx: Lovenox Dispo: Discharged to [facility] 01/01 Notes For Next Care Provider Recommend 30-day hide inspector to assess for occult A-fib/flutter Recommend SGLT2 or GLP-1 for cardiovascular mortality benefit in setting of acute stroke with history of diabetes Continue DAPT x 3 weeks, then continue on Plavix monotherapy Medication Changes From Visit Plavix 75 mg once daily Admission HPI Per Admitting Provider Farrah is a pleasant 64-year-old woman with past medical history of T2DM, hypothyroidism, schizoaffective disorder, hyperlipidemia, GERD, vertigo, frequent falls. She presented from home via EMS with lightheadedness. At the time of my exam, the patient was lying in bed in no acute distress with her outpatient mental health laborer operator present at bedside. She states on Monday 12/25, she began feeling lightheaded, weak, and had generalized malaise. The symptoms worsened over the weekend and this morning she felt too weak to get up and did not feel comfortable getting up while home alone due to her lightheadedness. She called EMS and with their assistance, she was able to get up and take her midodrine which she takes as needed for dizziness. She had some diarrhea last week but this has since resolved. Otherwise no sick symptoms. Denies cough, congestion, sore throat, headache, chest pain, heart palpitations, shortness of breath, abdominal pain, nausea, urinary symptoms. She reports a decreased oral intake x few days, which she attributes to a combination of a decreased appetite as well as decreased mobility due to weakness to get food/drink. She had a stroke workup completed in the ED which was negative. ED provider discussed her returning home, however given her generalized weakness, patient did not feel comfortable returning home alone. Patient reports that she took all of her regular morning medications today; no recent change in medications. She does not use supplemental oxygen at baseline. No CPAP at night. Vitals on admission significant for elevated BP at 148/105; vitals otherwise stable. Labs on admission are overall unremarkable. Anemia with hemoglobin at baseline. No leukocytosis. Electrolytes WNL. Liver enzymes WNL. TSH WNL. Troponin WNL. UA negative. Quad screen negative. CXR on admission reveals no acute findings. Head CT with no acute findings. Head and neck CTAs unremarkable. We discussed code status, patient wishes to be DNR/DNI. Discharge Exam General: No acute distress, nondiaphoretic, well-developed, well-nourished. Class II obesity. Skin: Warm, dry. No noted. 2+ peripheral edema to ankles bilaterally. HEENT: PERRLA. EOM intact. No nystagmus. Right monocular exotropia noted - baseline. Moist mucous membranes. Cardiac: Regular rate and rhythm without murmurs gallops or rubs. Pulm: Clear to auscultation bilaterally without wheezes, rales or rhonchi. Normal respiratory effort. 96% on room air. Abdominal: Soft, nontender, nondistended. Bowel sounds present. Neuro: A&O x3. No focal neurological deficits. Discharge Plan Discharge Items Patient Disposition: Transfer Inpatient Rehab Fac Reason For Visit: LIGHTHEADED, WEAKNESS Discharge Diagnosis: Acute cerebellar stroke Condition on Discharge: Fair Activity: Resume your previous activity Non-emergency contact: Primary Care Provider Call non-emergency contact if: you have any medication questions and your symptoms worsen Follow-up/Referrals: Hillary Clarke MD [Primary Care Provider] - (Follow-up in 1-2 weeks ) Diet: Carb Consistent or DM2 Addtl Attending Provider Instructions: Farrah, You are admitted to the hospital due to lightheadedness and weakness. You were found to have an acute cerebellar stroke. This explains your symptoms. You are being discharged to [facility] for rehab. Upon discharge from the hospital: * You were started on Plavix (an antiplatelet medication) 75 mg daily. Continue taking this. * Continue your home aspirin 81 mg daily and your Crestor 20 mg at bedtime. * Continue your other home medications as prescribed. * Follow-up with your PCP in 1-2 weeks. FOR [facility]: * Recommend 30-day hide inspector on discharge to assess for occult A- fib/flutter. Pending Studies at Discharge: No Stand-Alone Forms: My [facility] [employer], Medications to Prevent Stroke Skilled Items Patient informed of condition?: Yes DNR: Yes Discharge Level of Care: Acute rehab Communicable Disease: No Discharge Prognosis: Stable Lines: None Urinary Catheter: No Medications and DC Order Prescriptions: New clopidogrel 75 mg Tablet 75 mg PO QAM Qty: 30 0RF Continued lamotrigine [Lamictal] 200 mg tablet 200 mg PO BID cholecalciferol (vitamin D3) 25 mcg (1,000 unit) tablet 25 mcg PO BID 90 Days Qty: 180 3RF (DME) blood-glucose meter [OneTouch Ultra2 Meter] Misc See Rx Instructions .Route Qty: 1 0RF Rx Instructions: As directed (DME) OneTouch Ultra Test Strip See Rx Instructions .Route Qty: 100 3RF Rx Instructions: check bsg once daily (DME) lancets [OneTouch UltraSoft 2 Lancet] 30 gauge misc See Rx Instructions .Route Qty: 100 3RF Rx Instructions: check once daily aspirin [Enteric Coated Aspirin] 81 mg tablet,delayed release (DR/EC) 81 mg PO QAM Qty: 90 3RF levothyroxine 150 mcg tablet 150 mcg PO QAM Qty: 90 3RF rosuvastatin 20 mg tablet 20 mg PO HS Qty: 90 2RF acetaminophen 325 mg tablet 650 mg PO Q8 MDD 3000mg PRN (Reason: pain) Qty: 240 5RF ferrous sulfate [Iron (ferrous sulfate)] 325 mg (65 mg iron) tablet 325 mg PO DAILY Qty: 30 0RF Hold Instructions: Resume on 03/02/24. Hold due to constipation; can resume once bowel regimen is optimized Rx Instructions: Unable to verify OTC meds at this date/time. gabapentin [Neurontin] 300 mg capsule 300 mg PO HS Qty: 30 0RF meclizine 12.5 mg tablet 25 mg PO TID PRN (Reason: dizziness) Qty: 168 3RF folic acid 1 mg tablet 1 mg PO QAM Qty: 30 6RF cyanocobalamin (vitamin B-12) 500 mcg tablet 500 mcg PO QAM Qty: 30 6RF omeprazole 20 mg capsule,delayed release(DR/EC) 40 mg PO QAM 30 Days Qty: 60 2RF metformin 500 mg tablet extended release 24 hr 1,000 mg PO QAM Qty: 120 2RF quetiapine [Seroquel] 300 mg tablet 300 mg PO HS hydrophilic Ointment 1 applic topical TID PRN (Reason: dry skin) Qty: 113 1RF (DME) Blood Pressure Cuff Misc See Rx Instructions .Route Qty: 1 0RF Rx Instructions: As directed (DME) OneTouch Ultra Test Strip See Rx Instructions .ROUTE .MEDSUPPLY Qty: 100 0RF Rx Instructions: As directed (DME) lancets [OneTouch Delica Plus Lancet] 33 gauge misc See Rx Instructions .Route Qty: 100 0RF Rx Instructions: As directed clozapine 100 mg Tablet 300 mg PO HS Rx Instructions: Take w/ 50mg to equal 350mg at bedtime polyethylene glycol 3350 [Miralax] 17 gram/dose powder 17 g PO DAILY PRN (Reason: constipation) Qty: 119 0RF quetiapine 100 mg Tablet 100 mg PO QAM clozapine 100 mg tablet 100 mg PO QAM Rx Instructions: Take w/ 50mg to equal 150mg in the morning clozapine 50 mg tablet 50 mg PO BID Rx Instructions: Take w/ 100mg to equal in the morning and w/ 300mg (100 x 3) to equal 350mg at bedtime Discharge Orders: Discharge Order (Routine); Ordered 01/01/25 Ordered By: Deborah Monaco/Other Patient Handouts: Managing Type 2 Diabetes Admission Data Admit Date/Time: 12/30/24 09:45 Attending Provider: Gillian Allen Admit Provider: Steven Carrion Primary Care Provider: Hillary Clarke Other Providers: Steven Carrion; [facility] Other Interventions: Discharge Summary Assessment (RN) Last Done: 01/01/25 09:54 Hospital Stay Data Consultations 12/28/24 14:47 ED Decision to Admit Stat Diagnostic Imagining Performed Chest X-Ray 12/28/24 12:14 XR chest 1V portable CLINICAL HISTORY: dizzy COMPARISON STUDY: 09/27/2024 FINDINGS: There is stable cardiomegaly without pulmonary vascular congestion. No consolidation or pleural effusion seen. No pneumothorax. IMPRESSION: No acute findings. ACT 112: Negative or not required by law. Electronically signed by: Renato Gill M.D. 12/28/2024 12:[address] 12/28/24 12:25 CT head/brain wo con CLINICAL HISTORY: neuro deficit, acute stroke suspected. TECHNIQUE: Multiple axial CT images of the head were obtained without contrast. A dose lowering technique was utilized adhering to the principles of ALARA. COMPARISON: 09/30/2024 FINDINGS: No intracranial hemorrhage seen. No mass effect, midline shift, or hydrocephalus. There are stable mild chronic small vessel ischemic changes. No skull fracture seen. Visualized paranasal sinuses and mastoid air cells are clear. IMPRESSION: No acute findings. ACT 112: Negative or not required by law. The above report was generated using voice recognition software. It may contain grammatical, syntax or spelling errors. Electronically signed by: Renato Gill M.D. 12/28/2024 2:02 PM Head CTA 12/28/24 12:25 CT angio head w con CLINICAL HISTORY: neuro deficit, acute stroke suspected. TECHNIQUE: Unenhanced axial CT scan of the brain is performed. Subsequently, following the IV administration of 120 cc of Optiray, CT angiogram of the brain was performed from the skull base to the vertex. Images are reviewed in the axial, sagittal, and coronal planes. 3-D MIPS images are created and assessed. IV contrast was administered without complication. All measurements were obtained according to NASCET criteria. A dose lowering technique was utilized adhering to the principles of ALARA. CT DOSE: 1256 COMPARISON STUDY: 03/10/2023 FINDINGS: Distal vertebral and internal carotid arteries are patent. Basilar artery is widely patent. Anterior, middle, and posterior cerebral arteries are patent bilaterally. Cerebral venous sinuses opacify normally. IMPRESSION: No significant arterial narrowing or occlusion seen at the brain. ACT 112: Negative or not required by law. The above report was generated using voice recognition software. It may contain grammatical, syntax or spelling errors. Electronically signed by: Renato Gill M.D. 12/28/2024 2:05 PM Neck CTA 12/28/24 12:25 CT ANGIOGRAM OF THE NECK CLINICAL HISTORY: Dizziness. Stroke like symptoms. Neurological deficit. COMPARISON STUDY: CT angiogram of the neck dated 12/25/2023. TECHNIQUE: Following the IV administration of 120 of Optiray 320, CT angiogram of the neck was performed from the aortic arch to the skull base. Images are reviewed in the axial, sagittal, and coronal planes. 3-D MIPS images are created and assessed. IV contrast was administered without complication. All measurem ents were calculated based on NASCET criteria. A dose lowering technique was utilized adhering to the principles of ALARA. CT DOSE: 1255.86 mGy.cm FINDINGS: Thoracic aorta: Visualized portions of the thoracic aorta are normal in caliber. The aortic arch demonstrates standard 3-vessel anatomy. Right carotid arterial system: The right common carotid artery is widely patent, as are the right internal and external carotid arteries. Left carotid arterial system: The left common carotid artery is widely patent, as are the left internal and external carotid arteries. Vertebral arteries: Widely patent bilaterally and codominant in the neck. Subclavian arteries: Widely patent bilaterally. Intracranial vasculature: The visualized intracranial vessels at the skull base are patent. Jugular veins: Patent bilaterally. Brain parenchyma: The visualized brain parenchyma the skull base is within normal limits. Lung apices: Partially visualized upper lobe lung parenchyma appears clear. Soft tissues: The visualized pharyngeal soft tissues are normal in appearance noting angiographic phase technique. The oropharyngeal airway appears widely patent. The thyroid gland is atrophic. The salivary glands are normal in appearance. No cervical lymphadenopathy is seen. Skeletal structures: The visualized calvarium at the skull base appears intact. The imaged cervical spine is maintained Note multilevel spondylosis. Sinuses and mastoids: There is mild mucosal thickening within the maxillary antra. The mastoid air cells are well pneumatized. IMPRESSION: Unremarkable CT angiogram of the neck. ACT 112: Negative or not required by law. Electronically signed by: Ron Ortiz M.D. 12/28/2024 1:56 PM Brain MRI 12/30/24 09:46 MR brain wo con CLINICAL HISTORY: Lightheadedness; h/o stroke, r/o cerebellar stroke COMPARISON STUDY: CT of 12/28/2024 and MRI of 03/10/2023 FINDINGS: There is motion artifact. There is a 8 mm area of restricted diffusion medial posterior inferior right cerebellum. There is a possible tiny area of restricted diffusion versus motion artifact anterior left cerebellum. No other evidence of acute infarction seen. No mass effect, midline shift, or hydrocephalus. There are mild chronic small vessel ischemic changes. IMPRESSION: 1. Small acute infarction right cerebellum. Motion artifact versus small acute infarction left cerebellum. No evidence of acute infarction seen. 2. Otherwise described ACT 112: Negative or not required by law. Electronically signed by: Renato Gill M.D. 12/30/2024 12:26 PM Pending Results Patient Have Any Pending Studies at Discharge: No Discharge Instructions Given to Patient (Per Discharging Provider) Farrah, You are admitted to the hospital due to lightheadedness and weakness. You were found to have an acute cerebellar stroke. This explains your symptoms. You are being discharged to [facility] for rehab. Upon discharge from the hospital: * You were started on Plavix (an antiplatelet medication) 75 mg daily. Continue taking this. * Continue your home aspirin 81 mg daily and your Crestor 20 mg at bedtime. * Continue your other home medications as prescribed. * Follow-up with your PCP in 1-2 weeks. FOR [facility]: * Recommend 30-day hide inspector on discharge to assess for occult A- fib/flutter. Supervising Physician Co-Signing Physician Notes PA Supervision Note: I did not personally see or examine the patient today, but I verified all stacy points of RASHAD Mills's assessment and plan with the following exceptions/additions: None Total Time Total Time Spent Total Time Spent (In Minutes): Greater than 30 minutes spent completing this discharge process including direct patient care, medication reconciliation, documentation, review of labs and images, and coordination of care. Coding Level of Care Code 00376 INP/OBS DISCH >30 MIN Diagnoses Lightheadedness R42 Generalized weakness R53.1 Schizoaffective disorder, bipolar type F25.0 Schizoaffective disorder type: bipolar Diabetes mellitus type 2, controlled E11.9 Cerebellar stroke, acute I63.9"
== END 2025-01-01 12:57 | DRG 66 ==
LOC: 3W 11:52 → ED 11:52 → SUATTDRO 14:57 → 3W 17:40
DX: Z88.0 Allergy status to penicillin; K21.9 Gastro-esophageal reflux disease without esophagitis; I63.541 Cerebral infarction due to unspecified occlusion or stenosis of right cerebellar artery; E11.42 Type 2 diabetes mellitus with diabetic polyneuropathy; R29.6 Repeated falls; Z79.890 Hormone replacement therapy; E78.5 Hyperlipidemia, unspecified; I10 Essential (primary) hypertension; F25.9 Schizoaffective disorder, unspecified; E03.9 Hypothyroidism, unspecified; Z79.82 Long term (current) use of aspirin

== ENCOUNTER 2025-02-27 17:35 | Inpatient (IN) ==
--- NOTE | 2025-02-27 17:54 | Emergency Department Note ---
History of Present Illness General Chief complaint: Dizziness Stated complaint: DIZZINESS Time Seen by Provider: 02/27/25 17:44 History of Present Illness This is a 64-year-old female with history of CVA on Plavix, diabetes, anemia, among others that presents to the emergency department via EMS with complaints of "dizziness". The patient states that she was here in this hospital a few months ago and ultimately diagnosed with a CVA. She was transferred to [facility] where she participated in rehabilitation and returned home about a few weeks ago. However she notes that today when she got up she developed dizziness. She notes the dizziness has been present for the entire day. She describes as a room spinning sensation also like she is going to pass out. She notes that around 3 PM she vomited x 1. No fevers. No chills. The patient denies any chest pain or shortness of breath. Home Medications Medication Instructions Recorded Confirmed Type clozapine 100 mg tablet 300 mg PO HS 01/28/18 02/27/25 History lamotrigine 200 mg tablet 200 mg PO BID 02/25/23 02/27/25 History (Lamictal) quetiapine 300 mg tablet (Seroquel) 300 mg PO HS 02/27/23 02/27/25 History quetiapine 100 mg tablet 100 mg PO QAM 01/17/24 02/27/25 History cholecalciferol (vitamin D3) 25 25 mcg PO BID 90 days #180 tabs 02/07/24 02/27/25 Rx mcg (1,000 unit) tablet blood-glucose meter (OneTouch #1 ea 03/27/24 02/27/25 Rx Ultra2 Meter) blood sugar diagnostic (OneTouch #100 ea 03/29/24 02/27/25 Rx Ultra Test strips) lancets 30 gauge (OneTouch #100 ea 04/14/24 02/27/25 Rx UltraSoft 2 Lancet) aspirin 81 mg tablet,delayed 81 mg PO QAM #90 tabs 04/15/24 02/27/25 Rx release (Enteric Coated Aspirin) levothyroxine 150 mcg tablet 150 mcg PO QAM #90 tabs 06/02/24 02/27/25 Rx rosuvastatin 20 mg tablet 20 mg PO HS #90 tabs 08/14/24 02/27/25 Rx lancets 33 gauge (OneTouch Deljabari #100 ea 10/13/24 02/27/25 Rx Plus Lancet) miscellaneous medical supply #1 ea 10/13/24 02/27/25 Rx (Blood Pressure Cuff) acetaminophen 325 mg tablet 650 mg (2 x 325 mg) PO Q8 PRN pain 12/18/24 02/27/25 Rx #240 tabs gabapentin 300 mg capsule 300 mg PO HS #30 caps 12/22/24 02/27/25 Rx (Neurontin) meclizine 12.5 mg tablet 25 mg (2 x 12.5 mg) PO TID PRN 12/22/24 02/27/25 Rx dizziness #168 tabs cyanocobalamin (vitamin B-12) 500 500 mcg PO QAM #30 tabs 12/23/24 02/27/25 Rx mcg tablet folic acid 1 mg tablet 1 mg PO QAM #30 tabs 12/23/24 02/27/25 Rx metformin 500 mg tablet,extended 1,000 mg (2 x 500 mg) PO QAM #120 12/29/24 02/27/25 Rx release 24 hr tabs omeprazole 20 mg capsule,delayed 40 mg (2 x 20 mg) PO QAM 30 days 12/29/24 02/27/25 Rx release #60 caps Bedside Commode #1 ea 01/12/25 02/27/25 Rx Hospital Bed Homecare #1 ea 01/12/25 02/27/25 Rx clopidogrel 75 mg tablet 75 mg PO QAM 02/27/25 02/27/25 History clozapine 100 mg tablet 100 mg PO QAM 02/27/25 02/27/25 History clozapine 50 mg tablet 50 mg PO AMHS 02/27/25 02/27/25 History ferrous sulfate 325 mg (65 mg 325 mg PO QAM 02/27/25 02/27/25 History iron) tablet (Iron (ferrous sulfate)) Allergies Allergy/AdvReac Type Severity Reaction Status Date / Time lithium Allergy Unknown Unknown Verified 01/12/25 14:52 escitalopram AdvReac Severe Manic Verified 01/12/25 14:52 haloperidol AdvReac Intermediate dystonia Verified 01/12/25 14:52 Penicillins AdvReac Intermediate Gastrointestinal Verified 01/12/25 14:52 Upset valproic acid AdvReac Intermediate Leg Verified 01/12/25 14:52 Swelling Past Med/Surg History Problem List (Updated 02/27/25 @ 22:15 by Olivia Guevara PA-C) Constipation Ambulatory dysfunction Acute generalized abdominal pain (Acute) Emesis (Acute) History of cerebellar stroke (Acute) Dizziness (Acute) Risk for falls Cerebellar stroke, acute Weakness (Acute) Diabetes mellitus type 2, controlled Generalized weakness Lightheadedness Venous stasis dermatitis of both lower extremities (Acute) Low T4 (Acute) Fall (Acute) Anemia (Acute) Dizziness (Acute) Urine incontinence Tremor Esophageal dysmotility Abnormal CT scan, chest Bed sore Knee pain Hypoglycemia Folate deficiency Orthostatic hypotension Weakness (Acute) Vitamin B12 deficiency Fall (Acute) Severe morning sleep inertia Multiple pulmonary nodules determined by computed tomography of lung Anemia (Acute) Schizoaffective disorder (Chronic) Neuropathic pain Enuresis, nocturnal only Iron deficiency anemia Osteoarthritis of right knee Drug-induced parkinsonism Vitamin D deficiency Bilateral lumbar radiculopathy (Acute) Cataract (Acute) Gait instability (Acute) Hypertension (Acute) 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 Hypothyroidism Hyperlipidemia Dizziness (Chronic) Medical History AMS (altered mental status) Calf swelling Schizoaffective disorder Multiple pulmonary nodules pt unsure Vil[place] Hypothyroidism HTN (hypertension) Hyperlipidemia Drug-induced parkinsonism pt unsure - sometimes has tremors Dizziness Type 2 diabetes mellitus Cataract Bilateral Anemia Pneumonia Currently on 3x antibiotics for 10 days - Thee - pt denies symptoms "was just found on CT scan" Anxiety Poor historian Hx of diverticulitis of colon History of colon polyps Brain TIA unsure "2019 maybe, not sure" Depression Frequent falls most recent 01/09/24 [facility] Chronic back pain GERD (gastroesophageal reflux disease) Asthma inhaler prn Constipation Surgical History History of removal of cyst History of colonoscopy History of tooth extraction History of tonsillectomy and adenoidectomy Family History Grandmother (Paternal) Diabetes Grandmother (Maternal) Diabetes Mother Anemia Bipolar disorder Cardiomyopathy Coronary heart disease Father Diabetes FH: kidney cancer Other No family history of adverse response to anesthesia Parkinson disease Parkinsonian syndrome Social History Smoking Status: Never smoker Second Hand Exposure: No; Do You Dip or Chew Tobacco: No; Hx Alcohol Use: No Hx Substance Use: No Preferred Language: Indonesian Communication Ability: Effective Visual Impairment: No Limitations Hearing Ability: Normal Deputy Sheriff Generalist/Bailiff Required: No Beliefs That Will Affect Care: None marital status: Single Current Living Situation: Alone Current Living Situation Comment: Lives alone and does not want to continue to live by herself Feels Safe at Home: Yes Gender Identity: Female Assistive Devices: Raised Toilet Seat and Walker Review of Systems A total of 10 systems reviewed and were otherwise negative Physical Exam Vital Signs Vital Signs - 24 hr 02/27/25 17:26 02/27/25 17:49 02/27/25 17:55 Temperature 36.7 C Temperature Source Oral Pulse Rate 83 82 Pulse Rate [Right Finger] Pulse Rate from SpO2 Sensor Pulse Rhythm [Right Finger] Pulse Strength [Right Finger] Respiratory Rate 18 Respiratory Effort / Characteristics Respiratory Depth Respiratory Pattern Blood Pressure 126/70 Blood Pressure [Right Arm] Blood Pressure Mean 88 Blood Pressure Mean [Right Arm] Blood Pressure Position [Right Arm] Pulse Oximetry 97 97 Oxygen Delivery Method Room Air Room Air Sepsis Recent Fever Within 48 Hours No Sepsis New/Unexplained Change in Mental Status No Sepsis Action Taken by Nursing No Action Required 02/27/25 17:57 02/27/25 17:57 02/27/25 18:01 Temperature 36.7 C Temperature Source Oral Pulse Rate Pulse Rate [Right Finger] 78 Pulse Rate from SpO2 Sensor Pulse Rhythm [Right Finger] Pulse Strength [Right Finger] Respiratory Rate 18 Respiratory Effort / Characteristics Respiratory Depth Normal Respiratory Pattern Blood Pressure 126/70 Blood Pressure [Right Arm] 126/70 Blood Pressure Mean 93 Blood Pressure Mean [Right Arm] 88 Blood Pressure Position [Right Arm] Pulse Oximetry 97 97 Oxygen Delivery Method Room Air Room Air Sepsis Recent Fever Within 48 Hours Sepsis New/Unexplained Change in Mental Status Sepsis Action Taken by Nursing 02/27/25 18:01 02/27/25 18:12 02/27/25 18:24 Temperature Temperature Source Pulse Rate 81 91 H Pulse Rate [Right Finger] Pulse Rate from SpO2 Sensor 81 90 Pulse Rhythm [Right Finger] Pulse Strength [Right Finger] Respiratory Rate 20 20 Respiratory Effort / Characteristics Respiratory Depth Respiratory Pattern Blood Pressure 126/70 Blood Pressure [Right Arm] Blood Pressure Mean 93 Blood Pressure Mean [Right Arm] Blood Pressure Position [Right Arm] Pulse Oximetry 97 98 Oxygen Delivery Method Sepsis Recent Fever Within 48 Hours Sepsis New/Unexplained Change in Mental Status Sepsis Action Taken by Nursing 02/27/25 18:30 02/27/25 18:30 02/27/25 18:30 Temperature Temperature Source Pulse Rate 83 Pulse Rate [Right Finger] Pulse Rate from SpO2 Sensor 83 Pulse Rhythm [Right Finger] Pulse Strength [Right Finger] Respiratory Rate 27 H Respiratory Effort / Characteristics Respiratory Depth Respiratory Pattern Blood Pressure 141/80 H 141/80 H Blood Pressure [Right Arm] Blood Pressure Mean 92 92 Blood Pressure Mean [Right Arm] Blood Pressure Position [Right Arm] Pulse Oximetry 97 Oxygen Delivery Method Sepsis Recent Fever Within 48 Hours Sepsis New/Unexplained Change in Mental Status Sepsis Action Taken by Nursing 02/27/25 18:30 02/27/25 18:30 02/27/25 18:30 Temperature Temperature Source Pulse Rate Pulse Rate [Right Finger] Pulse Rate from SpO2 Sensor Pulse Rhythm [Right Finger] Pulse Strength [Right Finger] Respiratory Rate Respiratory Effort / Characteristics Respiratory Depth Respiratory Pattern Blood Pressure 141/80 H 141/80 H 141/80 H Blood Pressure [Right Arm] Blood Pressure Mean 92 92 92 Blood Pressure Mean [Right Arm] Blood Pressure Position [Right Arm] Pulse Oximetry Oxygen Delivery Method Sepsis Recent Fever Within 48 Hours Sepsis New/Unexplained Change in Mental Status Sepsis Action Taken by Nursing 02/27/25 18:42 02/27/25 18:51 02/27/25 19:00 Temperature Temperature Source Pulse Rate 82 83 Pulse Rate [Right Finger] Pulse Rate from SpO2 Sensor 82 83 Pulse Rhythm [Right Finger] Pulse Strength [Right Finger] Respiratory Rate 15 18 Respiratory Effort / Characteristics Respiratory Depth Respiratory Pattern Blood Pressure 134/75 Blood Pressure [Right Arm] Blood Pressure Mean 87 Blood Pressure Mean [Right Arm] Blood Pressure Position [Right Arm] Pulse Oximetry 97 96 Oxygen Delivery Method Sepsis Recent Fever Within 48 Hours Sepsis New/Unexplained Change in Mental Status Sepsis Action Taken by Nursing 02/27/25 19:00 02/27/25 19:00 02/27/25 19:00 Temperature Temperature Source Pulse Rate Pulse Rate [Right Finger] Pulse Rate from SpO2 Sensor Pulse Rhythm [Right Finger] Pulse Strength [Right Finger] Respiratory Rate Respiratory Effort / Characteristics Respiratory Depth Respiratory Pattern Blood Pressure 134/75 134/75 134/75 Blood Pressure [Right Arm] Blood Pressure Mean 87 87 87 Blood Pressure Mean [Right Arm] Blood Pressure Position [Right Arm] Pulse Oximetry Oxygen Delivery Method Sepsis Recent Fever Within 48 Hours Sepsis New/Unexplained Change in Mental Status Sepsis Action Taken by Nursing 02/27/25 19:00 02/27/25 19:00 02/27/25 19:12 Temperature Temperature Source Pulse Rate 82 83 Pulse Rate [Right Finger] Pulse Rate from SpO2 Sensor 82 83 Pulse Rhythm [Right Finger] Pulse Strength [Right Finger] Respiratory Rate 14 15 Respiratory Effort / Characteristics Respiratory Depth Respiratory Pattern Blood Pressure 134/75 Blood Pressure [Right Arm] Blood Pressure Mean 87 Blood Pressure Mean [Right Arm] Blood Pressure Position [Right Arm] Pulse Oximetry 95 95 Oxygen Delivery Method Sepsis Recent Fever Within 48 Hours Sepsis New/Unexplained Change in Mental Status Sepsis Action Taken by Nursing 02/27/25 19:21 02/27/25 19:30 02/27/25 19:30 Temperature Temperature Source Pulse Rate 82 Pulse Rate [Right Finger] Pulse Rate from SpO2 Sensor 83 Pulse Rhythm [Right Finger] Pulse Strength [Right Finger] Respiratory Rate 12 Respiratory Effort / Characteristics Respiratory Depth Respiratory Pattern Blood Pressure 117/79 117/79 Blood Pressure [Right Arm] Blood Pressure Mean 91 91 Blood Pressure Mean [Right Arm] Blood Pressure Position [Right Arm] Pulse Oximetry 96 Oxygen Delivery Method Sepsis Recent Fever Within 48 Hours Sepsis New/Unexplained Change in Mental Status Sepsis Action Taken by Nursing 02/27/25 19:30 02/27/25 19:30 02/27/25 19:30 Temperature Temperature Source Pulse Rate Pulse Rate [Right Finger] Pulse Rate from SpO2 Sensor Pulse Rhythm [Right Finger] Pulse Strength [Right Finger] Respiratory Rate Respiratory Effort / Characteristics Respiratory Depth Respiratory Pattern Blood Pressure 117/79 117/79 117/79 Blood Pressure [Right Arm] Blood Pressure Mean 91 91 91 Blood Pressure Mean [Right Arm] Blood Pressure Position [Right Arm] Pulse Oximetry Oxygen Delivery Method Sepsis Recent Fever Within 48 Hours Sepsis New/Unexplained Change in Mental Status Sepsis Action Taken by Nursing 02/27/25 19:30 02/27/25 19:42 02/27/25 19:57 Temperature Temperature Source Pulse Rate 83 86 Pulse Rate [Right Finger] 79 Pulse Rate from SpO2 Sensor Pulse Rhythm [Right Finger] Pulse Strength [Right Finger] Respiratory Rate 17 16 20 Respiratory Effort / Characteristics Respiratory Depth Respiratory Pattern Blood Pressure Blood Pressure [Right Arm] 122/77 Blood Pressure Mean Blood Pressure Mean [Right Arm] 92 Blood Pressure Position [Right Arm] Pulse Oximetry 96 Oxygen Delivery Method Room Air Sepsis Recent Fever Within 48 Hours Sepsis New/Unexplained Change in Mental Status Sepsis Action Taken by Nursing 02/27/25 20:03 02/27/25 20:12 02/27/25 20:24 Temperature Temperature Source Pulse Rate 79 83 Pulse Rate [Right Finger] Pulse Rate from SpO2 Sensor 83 Pulse Rhythm [Right Finger] Pulse Strength [Right Finger] Respiratory Rate 97 H 13 21 Respiratory Effort / Characteristics Respiratory Depth Respiratory Pattern Blood Pressure Blood Pressure [Right Arm] Blood Pressure Mean Blood Pressure Mean [Right Arm] Blood Pressure Position [Right Arm] Pulse Oximetry 95 Oxygen Delivery Method Sepsis Recent Fever Within 48 Hours Sepsis New/Unexplained Change in Mental Status Sepsis Action Taken by Nursing 02/27/25 20:25 02/27/25 20:25 02/27/25 20:25 Temperature Temperature Source Pulse Rate Pulse Rate [Right Finger] Pulse Rate from SpO2 Sensor Pulse Rhythm [Right Finger] Pulse Strength [Right Finger] Respiratory Rate Respiratory Effort / Characteristics Respiratory Depth Respiratory Pattern Blood Pressure 124/77 124/77 124/77 Blood Pressure [Right Arm] Blood Pressure Mean 95 95 95 Blood Pressure Mean [Right Arm] Blood Pressure Position [Right Arm] Pulse Oximetry Oxygen Delivery Method Sepsis Recent Fever Within 48 Hours Sepsis New/Unexplained Change in Mental Status Sepsis Action Taken by Nursing 02/27/25 20:25 02/27/25 20:25 02/27/25 20:30 Temperature Temperature Source Pulse Rate Pulse Rate [Right Finger] Pulse Rate from SpO2 Sensor Pulse Rhythm [Right Finger] Pulse Strength [Right Finger] Respiratory Rate Respiratory Effort / Characteristics Respiratory Depth Respiratory Pattern Blood Pressure 124/77 124/77 117/73 Blood Pressure [Right Arm] Blood Pressure Mean 95 95 90 Blood Pressure Mean [Right Arm] Blood Pressure Position [Right Arm] Pulse Oximetry Oxygen Delivery Method Sepsis Recent Fever Within 48 Hours Sepsis New/Unexplained Change in Mental Status Sepsis Action Taken by Nursing 02/27/25 20:30 02/27/25 20:30 02/27/25 20:30 Temperature Temperature Source Pulse Rate Pulse Rate [Right Finger] Pulse Rate from SpO2 Sensor Pulse Rhythm [Right Finger] Pulse Strength [Right Finger] Respiratory Rate Respiratory Effort / Characteristics Respiratory Depth Respiratory Pattern Blood Pressure 117/73 117/73 117/73 Blood Pressure [Right Arm] Blood Pressure Mean 90 90 90 Blood Pressure Mean [Right Arm] Blood Pressure Position [Right Arm] Pulse Oximetry Oxygen Delivery Method Sepsis Recent Fever Within 48 Hours Sepsis New/Unexplained Change in Mental Status Sepsis Action Taken by Nursing 02/27/25 20:30 02/27/25 20:30 02/27/25 20:42 Temperature Temperature Source Pulse Rate 80 78 Pulse Rate [Right Finger] Pulse Rate from SpO2 Sensor 80 78 Pulse Rhythm [Right Finger] Pulse Strength [Right Finger] Respiratory Rate 16 16 Respiratory Effort / Characteristics Respiratory Depth Respiratory Pattern Blood Pressure 117/73 Blood Pressure [Right Arm] Blood Pressure Mean 90 Blood Pressure Mean [Right Arm] Blood Pressure Position [Right Arm] Pulse Oximetry 97 97 Oxygen Delivery Method Sepsis Recent Fever Within 48 Hours Sepsis New/Unexplained Change in Mental Status Sepsis Action Taken by Nursing 02/27/25 20:51 02/27/25 21:00 02/27/25 21:00 Temperature Temperature Source Pulse Rate 78 Pulse Rate [Right Finger] Pulse Rate from SpO2 Sensor 78 Pulse Rhythm [Right Finger] Pulse Strength [Right Finger] Respiratory Rate 15 Respiratory Effort / Characteristics Respiratory Depth Respiratory Pattern Blood Pressure 122/77 122/77 Blood Pressure [Right Arm] Blood Pressure Mean 93 93 Blood Pressure Mean [Right Arm] Blood Pressure Position [Right Arm] Pulse Oximetry 97 Oxygen Delivery Method Sepsis Recent Fever Within 48 Hours Sepsis New/Unexplained Change in Mental Status Sepsis Action Taken by Nursing 02/27/25 21:00 02/27/25 21:00 02/27/25 21:00 Temperature Temperature Source Pulse Rate Pulse Rate [Right Finger] Pulse Rate from SpO2 Sensor Pulse Rhythm [Right Finger] Pulse Strength [Right Finger] Respiratory Rate Respiratory Effort / Characteristics Respiratory Depth Respiratory Pattern Blood Pressure 122/77 122/77 122/77 Blood Pressure [Right Arm] Blood Pressure Mean 93 93 93 Blood Pressure Mean [Right Arm] Blood Pressure Position [Right Arm] Pulse Oximetry Oxygen Delivery Method Sepsis Recent Fever Within 48 Hours Sepsis New/Unexplained Change in Mental Status Sepsis Action Taken by Nursing 02/27/25 21:00 02/27/25 21:12 02/27/25 21:44 Temperature Temperature Source Pulse Rate 78 78 77 Pulse Rate [Right Finger] Pulse Rate from SpO2 Sensor 78 78 Pulse Rhythm [Right Finger] Pulse Strength [Right Finger] Respiratory Rate 18 17 Respiratory Effort / Characteristics Respiratory Depth Respiratory Pattern Blood Pressure Blood Pressure [Right Arm] Blood Pressure Mean Blood Pressure Mean [Right Arm] Blood Pressure Position [Right Arm] Pulse Oximetry 98 96 Oxygen Delivery Method Sepsis Recent Fever Within 48 Hours Sepsis New/Unexplained Change in Mental Status Sepsis Action Taken by Nursing 02/27/25 23:00 02/27/25 23:29 Temperature Temperature Source Pulse Rate Pulse Rate [Right Finger] 84 Pulse Rate from SpO2 Sensor Pulse Rhythm [Right Finger] Regular Pulse Strength [Right Finger] Normal Respiratory Rate 18 Respiratory Effort / Characteristics Non-Labored Spontaneous Respiratory Depth Normal Respiratory Pattern Regular Blood Pressure Blood Pressure [Right Arm] 122/76 Blood Pressure Mean Blood Pressure Mean [Right Arm] 91 Blood Pressure Position [Right Arm] Semi-fowlers Pulse Oximetry 99 Oxygen Delivery Method Room Air Room Air Sepsis Recent Fever Within 48 Hours Sepsis New/Unexplained Change in Mental Status Sepsis Action Taken by Nursing VITAL SIGNS - Vital signs and nursing notes were reviewed. Stable and afebrile. GENERAL - 64-year-old female appearing her stated age who is in no acute distress. Communicates well with provider and answers questions appropriately. SKIN - Without rashes. HEAD - NC/AT. EYES - PERRL with EOMI bilaterally. Sclera anicteric. EARS - No deformities of external structures noted on gross examination bilaterally. NOSE - Midline and without cyanosis. MOUTH/OROPHARYNX - Without perioral cyanosis. Buccal mucosa pink and moist and without leukoplakia. Tongue midline with equal elevation of palate bilaterally. No tonsillar hypertrophy, erythema, or exudates noted. Good dentition noted. NECK - Neck with FROM. No nuchal rigidity. LUNGS - Chest wall symmetric without accessory muscle use, intercostals retractions, or central cyanosis. Normal vesicular breath sounds CTA B/L. No wheezes, rales, or rhonchi appreciated. CARDIAC - RRR ABDOMEN - Abdominal contour normal without pulsations or visible masses. BS normoactive all four quadrants. No tenderness, palpable masses, hepatosplenomegaly, or ascites noted. EXTREMITIES - No clubbing or peripheral cyanosis. +5/5 strength noted in UE/LE bilaterally. NEUROLOGIC - Cranial nerves II through XII grossly intact. Sensory intact to light touch throughout. PSYCH -alert, oriented and pleasant on examination. Course Administered Medications Discontinued Medications Sodium Chloride (Nss) 500 mls @ 125 mls/hr IV .Q4H ONE Stop: 02/27/25 22:31 Last Admin: 02/27/25 20:14 Dose: 125 mls/hr Documented By: tawny Ioversol (Optiray 320 125ml) 119 ml IV ONCE ONE Stop: 02/27/25 19:52 Last Admin: 02/27/25 19:51 Dose: 119 ml Documented By: LUIS ENRIQUE Meclizine HCl (Meclizine Hcl 25 Mg Tab) 25 mg PO NOW STA Stop: 02/27/25 21:47 Last Admin: 02/27/25 21:56 Dose: 25 mg Documented By: tawny Ondansetron HCl (Ondansetron Inj 2 Mg/Ml 2 Ml Vial) 4 mg IV NOW STA Stop: 02/27/25 18:33 Last Admin: 02/27/25 19:44 Dose: 4 mg Documented By: tawny Polyethylene Glycol (Polyethylene (Miralax) 17 Gm Pack) 17 gm PO NOW STA Stop: 02/27/25 21:47 Last Admin: 02/27/25 21:56 Dose: 17 gm Documented By: tawny Medical Decision Making Laboratory Data 02/27/25 17:59 02/27/25 17:59 Lab Results 02/27/25 02/27/25 02/27/25 Range/Units 17:59 18:27 20:15 WBC 10.51 (4.8-10.8) K/ul RBC 3.48 L (4.20-5.40) M/uL Hgb 10.4 L (12.0-16.0) g/dL Hct 32.6 L (37.0-47.0) % MCV 93.7 (80.0-100.0) fL MCH 29.9 (25.0-34.0) pg MCHC 31.9 L (32.0-36.0) g/dL RDW Std Deviation 50.7 H (36.4-46.3) fL RDW Coeff of Radha 14.8 H (11.5-14.5) % Plt Count 230 (130-400) K/uL MPV 8.9 L (9.4-12.4) fL Immature Gran % (Auto) 0.4 % Neut % (Auto) 88.3 % Lymph % (Auto) 5.7 % Toombs % (Auto) 4.8 % Eos % (Auto) 0.5 % Baso % (Auto) 0.3 % Neut # (Auto) 9.29 H (1.40-6.50) K/uL Lymph # (Auto) 0.60 L (1.20-3.40) K/uL Toombs # (Auto) 0.50 (0.11-0.59) K/uL Eos # (Auto) 0.05 (0.00-0.50) K/uL Baso # (Auto) 0.03 (0.00-0.20) K/uL Immature Gran # (Auto) 0.04 (0.01-0.20) K/uL PT 10.8 (9.0-12.0) Seconds INR 1.0 (0.9-1.1) APTT 25 (21-31) Seconds PTT Ratio 0.9 Sodium 134 L (136-145) mmol/L Potassium 4.6 (3.5-5.1) mmol/L Chloride 102 (98-107) mmol/L Carbon Dioxide 25 (21-32) mmol/L Anion Gap 7 (3-11) BUN 24 H (6-23) mg/dl Creatinine 0.95 (0.6-1.2) mg/dl Est Cr Clr Drug Dosing 71.0 ml/min eGFR 66.90 BUN/Creatinine Ratio 25.3 H (10-20) Glucose 145 H (70-99(Fasting)) mg/dl POC Glucose 130 H (70-99) mg/dl Lactate 2.1 H* (0.4-2.0) mmol/L Calcium 8.7 (8.6-10.3) mg/dl Total Bilirubin 0.4 (0.2-1.0) mg/dl AST 11 L (13-39) U/L ALT 13 (7-52) U/L Alkaline Phosphatase 84 (34-104) U/L Troponin I High Sens 6.4 (0-14) pg/ml Total Protein 6.4 (6.0-8.3) gm/dl Albumin 4.0 (3.4-5.0) gm/dl Globulin 2.4 L (2.5-4.0) gm/dl Albumin/Globulin Ratio 1.7 (0.9-2) Lipase 15 (11-82) U/L Procalcitonin 0.04 (0-0.5) ng/ml Urine Color Yellow Urine Appearance Clear (Clear) Urine pH 5.5 (4.5-7.5) Ur Specific [place] 1.015 (1.000-1.030) Urine Protein Negative (Negative) Urine Glucose (UA) Negative (Negative) Urine Ketones Negative (Negative) Urine Blood Negative (Negative) Urine Nitrite Negative (Negative) Urine Bilirubin Negative (Negative) Urine Urobilinogen Negative (Negative) Ur Leukocyte Esterase 1+ H (Negative) Urine WBC (Auto) 0-5 (0-5) /hpf Urine RBC (Auto) 0-2 (0-2) /hpf U Hyaline Cast (Auto) 0-2 (0-2) /lpf U Epithel Cells (Auto) 0-2 (0-2) /hpf Urine Bacteria (Auto) None Seen (None Seen) Urine Comment Adenovirus (PCR) (NotDetected) B. pertussis DNA (PCR) (NotDetected) B.parapertussis DNA PCR (NotDetected) C. pneumoniae DNA (PCR) (NotDetected) Coronavirus OC43 (PCR) (NotDetected) Coronavirus HKU1 (PCR) (NotDetected) Coronavirus 229E (PCR) (NotDetected) SARS-CoV-2 (PCR) (NotDetected) Coronavirus NL63 (PCR) (NotDetected) Human Metapneumovir PCR (NotDetected) Influenza Type A (PCR) (NotDetected) Influenza Type B (PCR) (NotDetected) M. pneumoniae (PCR) (NotDetected) Parainfluenza 1 (PCR) (NotDetected) Parainfluenza 2 (PCR) (NotDetected) Parainfluenza 3 (PCR) (NotDetected) Parainfluenza 4 (PCR) (NotDetected) RSV (PCR) (NotDetected) Entero/Rhino (PCR) (NotDetected) 02/27/25 02/27/25 Range/Units 20:38 21:06 WBC (4.8-10.8) K/ul RBC (4.20-5.40) M/uL Hgb (12.0-16.0) g/dL Hct (37.0-47.0) % MCV (80.0-100.0) fL MCH (25.0-34.0) pg MCHC (32.0-36.0) g/dL RDW Std Deviation (36.4-46.3) fL RDW Coeff of Radha (11.5-14.5) % Plt Count (130-400) K/uL MPV (9.4-12.4) fL Immature Gran % (Auto) % Neut % (Auto) % Lymph % (Auto) % [place] % (Auto) % Eos % (Auto) % Baso % (Auto) % Neut # (Auto) (1.40-6.50) K/uL Lymph # (Auto) (1.20-3.40) K/uL [place] # (Auto) (0.11-0.59) K/uL Eos # (Auto) (0.00-0.50) K/uL Baso # (Auto) (0.00-0.20) K/uL Immature Gran # (Auto) (0.01-0.20) K/uL PT (9.0-12.0) Seconds INR (0.9-1.1) APTT (21-31) Seconds PTT Ratio Sodium (136-145) mmol/L Potassium (3.5-5.1) mmol/L Chloride (98-107) mmol/L Carbon Dioxide (21-32) mmol/L Anion Gap (3-11) BUN (6-23) mg/dl Creatinine (0.6-1.2) mg/dl Est Cr Clr Drug Dosing ml/min eGFR BUN/Creatinine Ratio (10-20) Glucose (70-99(Fasting)) mg/dl POC Glucose (70-99) mg/dl Lactate 1.6 (0.4-2.0) mmol/L Calcium (8.6-10.3) mg/dl Total Bilirubin (0.2-1.0) mg/dl AST (13-39) U/L ALT (7-52) U/L Alkaline Phosphatase (34-104) U/L Troponin I High Sens (0-14) pg/ml Total Protein (6.0-8.3) gm/dl Albumin (3.4-5.0) gm/dl Globulin (2.5-4.0) gm/dl Albumin/Globulin Ratio (0.9-2) Lipase (11-82) U/L Procalcitonin (0-0.5) ng/ml Urine Color Urine Appearance (Clear) Urine pH (4.5-7.5) Ur Specific [place] (1.000-1.030) Urine Protein (Negative) Urine Glucose (UA) (Negative) Urine Ketones (Negative) Urine Blood (Negative) Urine Nitrite (Negative) Urine Bilirubin (Negative) Urine Urobilinogen (Negative) Ur Leukocyte Esterase (Negative) Urine WBC (Auto) (0-5) /hpf Urine RBC (Auto) (0-2) /hpf U Hyaline Cast (Auto) (0-2) /lpf U Epithel Cells (Auto) (0-2) /hpf Urine Bacteria (Auto) (None Seen) Urine Comment Adenovirus (PCR) Not Detected (NotDetected) B. pertussis DNA (PCR) Not Detected (NotDetected) B.parapertussis DNA PCR Not Detected (NotDetected) C. pneumoniae DNA (PCR) Not Detected (NotDetected) Coronavirus OC43 (PCR) Not Detected (NotDetected) Coronavirus HKU1 (PCR) Not Detected (NotDetected) Coronavirus 229E (PCR) Not Detected (NotDetected) SARS-CoV-2 (PCR) Not Detected (NotDetected) Coronavirus NL63 (PCR) Not Detected (NotDetected) Human Metapneumovir PCR Not Detected (NotDetected) Influenza Type A (PCR) Not Detected (NotDetected) Influenza Type B (PCR) Not Detected (NotDetected) M. pneumoniae (PCR) Not Detected (NotDetected) Parainfluenza 1 (PCR) Not Detected (NotDetected) Parainfluenza 2 (PCR) Not Detected (NotDetected) Parainfluenza 3 (PCR) Not Detected (NotDetected) Parainfluenza 4 (PCR) Not Detected (NotDetected) RSV (PCR) Not Detected (NotDetected) Entero/Rhino (PCR) Not Detected (NotDetected) Imaging Data Radiologist's Impression: Abdomen/Pelvis CT 02/27/25 17:55 Exam(s): CT ABDOMEN + PELVIS With Contrast IV Amt: 119ml opitray 320 EXAM: CT Abdomen and Pelvis With Intravenous Contrast CLINICAL HISTORY: dizziness, emesis, abd pain. TECHNIQUE: Axial computed tomography images of the abdomen and pelvis with intravenous contrast. CTDI is 27.95 mGy and DLP is 1433.84 mGy-cm. Automated exposure control was utilized for the study. A dose lowering technique was utilized adhering to the principles of ALARA. CONTRAST: Patient received 119ml Optiray 320 of IV contrast COMPARISON: CT Abdomen Pelvis dated 10/14/2023 FINDINGS: Lung bases: Similar curvilinear changes in both lower lobes. No consolidation. ABDOMEN: Liver: Normal. No mass. Gallbladder and bile ducts: Normal. No calcified stones. No ductal dilation. Pancreas: Normal. No mass. No ductal dilation. Spleen: Normal. No splenomegaly. Adrenals: Normal. No mass. Kidneys and ureters: Normal. No solid mass. No hydronephrosis. Stomach and bowel: The stomach is [id number] distended with retained oral contents and fluid. No gastric mucosal thickening. There are multiple fluid distended small bowel loops throughout the central abdomen and pelvis, measuring up to 4 cm in diameter. No obvious transition point identified; however, there is asymmetric decompression of the distal small bowel in the right lower quadrant. Moderate stool burden. No diverticulitis. PELVIS: Appendix: The appendix is not clearly delineated. Bladder: Normal. No mass. Reproductive: Unremarkable as visualized. ABDOMEN and PELVIS: Intraperitoneal space: Normal. No free air. No significant fluid collection. Bones/joints: No acute fracture. No dislocation. Soft tissues: Normal. Vasculature: Normal. No abdominal aortic aneurysm. Lymph nodes: Normal. No enlarged lymph nodes. IMPRESSION: 1. There are multiple fluid distended small bowel loops throughout the central abdomen and pelvis, measuring up to 4 cm in diameter. No obvious transition point identified; however, there is asymmetric decompression of the distal small bowel in the right lower quadrant. Favor enteritis; however, if there is high clinical index of suspicion for developing small bowel obstruction, serial radiographic evaluation or small-bowel follow-through should provide additional information. 2. Moderate stool burden. No diverticulitis. No free intraperitoneal fluid or pneumoperitoneum. Electronically signed by: Reynaldo George MD 02/27/25 20:55 PM Chest X-Ray 02/27/25 17:55 EXAM: Portable AP chest radiograph TECHNIQUE: AP portable radiograph of the chest was obtained. INDICATION: Shortness of breath Comparison: Chest radiograph February 20, 2024 FINDINGS: LINES and TUBES: None CARDIOVASCULAR: Cardiac silhouette is stable enlarged in size. LUNGS/PLEURA: No focal consolidation identified. Chronic interstitial lung changes. Bibasilar densities are likely atelectasis though difficult to exclude mild airspace disease. No significant pleural fluid. No discernible pneumothorax. OSSEOUS/OTHER: No displaced acute osseous process identified. IMPRESSION: Bibasilar densities are likely atelectasis though difficult to exclude mild airspace disease. Electronically signed by Hitesh Chang 02-27-2025 9:11 PM Head CTA 02/27/25 17:55 Exam(s): CTA HEAD W/WO Contrast IV Amt: 119ml opitray 320 EXAM: CT Angiography Head Without and With Intravenous Contrast CLINICAL HISTORY: dizziness. TECHNIQUE: Axial computed tomographic angiography images of the head without and with intravenous contrast. CTDI is 52.48 mGy and DLP is 1136.55 mGy-cm. Automated exposure control was utilized for the study. A dose lowering technique was utilized adhering to the principles of ALARA. MIP reconstructed images were created and reviewed. CONTRAST: Patient received 119ml Optiray 320 of IV contrast COMPARISON: CTA head 02/27/2025 FINDINGS: VASCULATURE: Right internal carotid artery: No acute findings. Intracranial segment is patent with no significant stenosis. No aneurysm. Right anterior cerebral artery: Normal. No occlusion or significant stenosis. No aneurysm. Right middle cerebral artery: Normal. No occlusion or significant stenosis. No aneurysm. Right posterior cerebral artery: Normal. No occlusion or significant stenosis. No aneurysm. Right vertebral artery: Unremarkable as visualized. Left internal carotid artery: No acute findings. Intracranial segment is patent with no significant stenosis. No aneurysm. Left anterior cerebral artery: Normal. No occlusion or significant stenosis. No aneurysm. Left middle cerebral artery: Normal. No occlusion or significant stenosis. No aneurysm. Left posterior cerebral artery: Normal. No occlusion or significant stenosis. No aneurysm. Left vertebral artery: Unremarkable as visualized. Basilar artery: Normal. No occlusion or significant stenosis. No aneurysm. HEAD: Brain: No intracranial hemorrhage. No significant mass effect. No cortical infarct. No abnormal parenchymal enhancement. Ventricles: Normal. No ventriculomegaly. Bones/joints: No acute fracture. Soft tissues: Normal. Sinuses: Unremarkable as visualized. No acute sinusitis. Mastoid air cells: Unremarkable as visualized. No mastoid effusion. IMPRESSION: 1. Precontrast imaging demonstrates no intracranial hemorrhage, mass effect or midline shift. No cortical infarct. 2. Negative intracranial CTA examination. No significant alteration from the prior examination. Electronically signed by: Reynaldo George MD 02/27/25 20:59 PM Neck CTA 02/27/25 17:55 Exam(s): CTA NECK With Contrast IV Amt: 119ml opitray 320 EXAM: CT Angiography Neck With Intravenous Contrast CLINICAL HISTORY: dizziness. TECHNIQUE: Routine carotid CT angiography protocol was performed with intravenous contrast. NASCET criteria using the distal ICAs for comparison were used for evaluation of stenoses. CTDI is 29.69 mGy and DLP is 519.41 mGy-cm. Automated exposure control was utilized for the study. A dose lowering technique was utilized adhering to the principles of ALARA. MIP reconstructed images were created and reviewed. CONTRAST: Patient received 119ml Optiray 320 of IV contrast COMPARISON: CTA neck 02/21/2024 FINDINGS: VASCULATURE: Right common carotid artery: Normal. No occlusion or significant stenosis. No dissection. Right internal carotid artery: The right internal carotid artery is tortuous but is patent. Extracranial segment is patent with no occlusion or significant stenosis. No dissection. Right external carotid artery: Normal. No occlusion. Right vertebral artery: Normal. No occlusion or significant stenosis. No dissection. Left common carotid artery: The left common carotid artery is patent. Left internal carotid artery: The left mid to distal internal carotid artery is tortuous but is patent. Extracranial segment is patent with no occlusion or significant stenosis. No dissection. Left external carotid artery: Normal. No occlusion. Left vertebral artery: Normal. No occlusion or significant stenosis. No dissection. Brachiocephalic and subclavian arteries: The ostia of the brachiocephalic and left common carotid artery are not included. The left subclavian origin is maintained. Aorta: The aortic arch is predominantly excluded from the field-of- view. NECK: Bones/joints: Normal. No acute fracture. Soft tissues: Normal. Lung apices: Clear. CAROTID STENOSIS REFERENCE USING NASCET CRITERIA: % ICA stenosis = (1 - narrowest ICA diameter/diameter of distal cervical ICA) x 100. Mild - <50% stenosis. Moderate - 50-69% stenosis. Severe - 70-94% stenosis. Near occlusion - 95-99% stenosis. Occluded - 100% stenosis. IMPRESSION: Negative cervical CTA examination. No significant alteration from the prior examination. Electronically signed by: Reynaldo George MD 02/27/25 21:01 PM [facility] Narrative Patient was seen and evaluated as above in room B12. Review was performed of nursing notes and vital signs. I did review pertinent previous visits and patient history. After obtaining a thorough history and physical examination the above work up was performed. Patient presents to us today for evaluation of dizziness. She presents via EMS. On my assessment she has no focal neurologic deficit. NIHSS is 0. Options of care were discussed with the patient. IV access was established. Labs were drawn. CT angios of the head and neck were ordered I also added a CT scan of the abdomen/pelvis as the patient does note since the episode of vomiting today at 3 PM she now has abdominal pain. No chest pain or shortness of breath. A chest x-ray was added. EKG here per my interpretation reveals normal sinus rhythm at a rate of 82 bpm. QTc 472. QRS 100. EKG indication is dizziness. Patient does have a history of CVA, with MRI dated 12/30/2024 showing small acute infarction right cerebellum. There is also comment of motion artifact versus small acute infarction of the left cerebellum. With the patient having recent infarct within the last 3 months, this excludes her from being able to receive TNK even if today's presentation represents acute occlusive CVA. Labs reveal no leukocytosis. There is mild anemia with hemoglobin of 10.4. This is about a point higher than previous. The metabolic panel returned with mild elevation of BUN at 24 consistent with the patient's void completed stay. Mild hyponatremia 134. There is lactic mildly elevated at 2.1 however the patient is not tachycardic and is not hypotensive. This will be repeated following the fluids. The lactate elevation cleared. She is not felt to require 30/kg as this is not felt to represent septic presentation. Procalcitonin within normal range making sepsis less likely. Lipase is within normal range. Troponin negative making ACS less likely. Urinalysis shows 1+ leukocytes without clear evidence of UTI. I did order IV Zofran for the patient's nausea. I did order IV fluids as well. To replenish volume losses from the vomiting earlier today. The CTs did result. They are as above. The head and neck were overall unremarkable from an acute standpoint. The CT scan abdomen pelvis does show findings that are most consistent with an enteritis, low suspicion for bowel obstruction. She has a benign abdomen here. No further vomiting during her time here in the ED. I do believe that further evaluation and management in the inpatient setting is warranted. Case discussed with Dr. Stoll, hospitalist. Please refer to further documentation regarding her stay. GCS: 15 In the evaluation and treatment of this patient the following differential diagnoses were entertained: CVA, TIA, intracranial hemorrhage, electrolyte disturbance, arrhythmia, intra-abdominal infection, among others. Impression & Plan Dizziness, History of cerebellar stroke, Emesis, Acute generalized abdominal pain Discharge Plan Visit Data Chief Complaint: Dizziness Stated Complaint: DIZZINESS ED Provider: Ron Hoff ED Midlevel Provider: Ivan Nam Discharge Problem: Dizziness, History of cerebellar stroke, Emesis, Acute generalized abdominal pain Patient Disposition: Admitted As Inpatient Condition: Good Discharge Instructions Interventions: ED Discharge Assessment Last Done: 02/27/25 23:29 Forms Stand Alone Forms: [facility] Prescriptions Prescriptions: No Action lamotrigine [Lamictal] 200 mg tablet 200 mg PO BID cholecalciferol (vitamin D3) 25 mcg (1,000 unit) tablet 25 mcg PO BID 90 Days Qty: 180 3RF (DME) blood-glucose meter [OneTouch Ultra2 Meter] Misc See Rx Instructions .Route Qty: 1 0RF Rx Instructions: As directed (DME) OneTouch Ultra Test Strip See Rx Instructions .Route Qty: 100 3RF Rx Instructions: check bsg once daily (DME) lancets [OneTouch UltraSoft 2 Lancet] 30 gauge misc See Rx Instructions .Route Qty: 100 3RF Rx Instructions: check once daily aspirin [Enteric Coated Aspirin] 81 mg tablet,delayed release (DR/EC) 81 mg PO QAM Qty: 90 3RF levothyroxine 150 mcg tablet 150 mcg PO QAM Qty: 90 3RF rosuvastatin 20 mg tablet 20 mg PO HS Qty: 90 2RF acetaminophen 325 mg tablet 650 mg PO Q8 MDD 3000mg PRN (Reason: pain) Qty: 240 5RF gabapentin [Neurontin] 300 mg capsule 300 mg PO HS Qty: 30 0RF meclizine 12.5 mg tablet 25 mg PO TID PRN (Reason: dizziness) Qty: 168 3RF folic acid 1 mg tablet 1 mg PO QAM Qty: 30 6RF cyanocobalamin (vitamin B-12) 500 mcg tablet 500 mcg PO QAM Qty: 30 6RF omeprazole 20 mg capsule,delayed release(DR/EC) 40 mg PO QAM 30 Days Qty: 60 2RF metformin 500 mg tablet extended release 24 hr 1,000 mg PO QAM Qty: 120 2RF quetiapine [Seroquel] 300 mg tablet 300 mg PO HS (DME) Blood Pressure Cuff Misc See Rx Instructions .Route Qty: 1 0RF Rx Instructions: As directed (DME) lancets [OneTouch Delica Plus Lancet] 33 gauge misc See Rx Instructions .Route Qty: 100 0RF Rx Instructions: As directed (DME) Bedside Commode Misc See Rx Instructions .Route Qty: 1 0RF Rx Instructions: As directed (DME) Hospital Bed Homecare Misc See Rx Instructions .Route Qty: 1 0RF Rx Instructions: As directed clozapine 100 mg Tablet 300 mg PO HS Rx Instructions: Take 1 tablet every morning and 3 tablets at bedtime quetiapine 100 mg Tablet 100 mg PO QAM clozapine 100 mg tablet 100 mg PO QAM clozapine 50 mg tablet 50 mg PO AMHS clopidogrel 75 mg tablet 75 mg PO QAM ferrous sulfate [Iron (ferrous sulfate)] 325 mg (65 mg iron) tablet 325 mg PO QAM Referrals Referrals: Hillary Clarke MD [Primary Care Provider] -
[2025-02-27 18:18] LABS: Hematocrit (blood only) 32.6 % (37.0-47.0); Hemoglobin 10.4 g/dL (12.0-16.0); Immature Granulocytes # (auto) 0.04 K/uL (0.01-0.20); Immature Granulocytes % (auto) 0.4 %; Mean Corpuscular Hemoglobin 29.9 pg (25.0-34.0); Mean Corpuscular Volume 93.7 fL (80.0-100.0); Platelet Count 230 K/uL (130-400); RDW Standard Deviation 50.7 fL (36.4-46.3); Red Blood Count 3.48 M/uL (4.20-5.40); White Blood Count 10.51 K/ul (4.8-10.8)
[2025-02-27 18:37] LABS: Alanine Aminotransferase 13.0 U/L (7-52); Albumin Globulin Ratio 1.7 (0.9-2); Albumin Level 4.0 gm/dl (3.4-5.0); Alkaline Phosphatase 84.0 U/L (34-104); Anion Gap 7.0 (3-11); Bilirubin,Total 0.4 mg/dl (0.2-1.0); Blood Urea Nitrogen 24.0 mg/dl (6-23); Calcium 8.7 mg/dl (8.6-10.3); Carbon Dioxide 25.0 mmol/L (21-32); Chloride 102.0 mmol/L (98-107); Creatinine Clr Calc Pharmacy 71.0 ml/min; Globulin 2.4 gm/dl (2.5-4.0); Glucose 145.0 mg/dl (70-99(Fasting)); Lipase 15.0 U/L (11-82); Potassium 4.6 mmol/L (3.5-5.1); Sodium 134.0 mmol/L (136-145); Total Protein 6.4 gm/dl (6.0-8.3)
[2025-02-27 18:41] LABS: Appearance Urine Clear (Clear); Bacteria Urine Automated None Seen (None Seen); Cast Urine Automated 0-2 /lpf (0-2); Epithelial Cell Urine Auto 0-2 /hpf (0-2); Glucose Urine UA Negative (Negative); RBC Urine Automated 0-2 /hpf (0-2); WBC Urine Automated 0-5 /hpf (0-5)
[2025-02-27 19:10] LABS: INR 1.0 (0.9-1.1); Partial Thromboplastin Time 25 Seconds (21-31); Prothrombin Time 10.8 Seconds (9.0-12.0)
[2025-02-27] MEDS: ONDANSETRON INJ 2 MG/ML 2 ML VIAL IV STA (19:44)
[2025-02-27] MEDS: OPTIRAY 320 125ml IV ONE (19:51)
[2025-02-27] MEDS: SODIUM CHLORIDE 0.9% 500 ML IV ONE (20:14)
--- NOTE | 2025-02-27 20:56 | CT Scan Report ---
Exam(s): CT ABDOMEN + PELVIS With Contrast IV Amt: 119ml opitray 320 EXAM: CT Abdomen and Pelvis With Intravenous Contrast CLINICAL HISTORY: dizziness, emesis, abd pain. TECHNIQUE: Axial computed tomography images of the abdomen and pelvis with intravenous contrast. CTDI is 27.95 mGy and DLP is 1433.84 mGy-cm. Automated exposure control was utilized for the study. A dose lowering technique was utilized adhering to the principles of ALARA. CONTRAST: Patient received 119ml Optiray 320 of IV contrast COMPARISON: CT Abdomen Pelvis dated 10/14/2023 FINDINGS: Lung bases: Similar curvilinear changes in both lower lobes. No consolidation. ABDOMEN: Liver: Normal. No mass. Gallbladder and bile ducts: Normal. No calcified stones. No ductal dilation. Pancreas: Normal. No mass. No ductal dilation. Spleen: Normal. No splenomegaly. Adrenals: Normal. No mass. Kidneys and ureters: Normal. No solid mass. No hydronephrosis. Stomach and bowel: The stomach is garl-ul-kloyeigkfd distended with retained oral contents and fluid. No gastric mucosal thickening. There are multiple fluid distended small bowel loops throughout the central abdomen and pelvis, measuring up to 4 cm in diameter. No obvious transition point identified; however, there is asymmetric decompression of the distal small bowel in the right lower quadrant. Moderate stool burden. No diverticulitis. PELVIS: Appendix: The appendix is not clearly delineated. Bladder: Normal. No mass. Reproductive: Unremarkable as visualized. ABDOMEN and PELVIS: Intraperitoneal space: Normal. No free air. No significant fluid collection. Bones/joints: No acute fracture. No dislocation. Soft tissues: Normal. Vasculature: Normal. No abdominal aortic aneurysm. Lymph nodes: Normal. No enlarged lymph nodes. IMPRESSION: 1. There are multiple fluid distended small bowel loops throughout the central abdomen and pelvis, measuring up to 4 cm in diameter. No obvious transition point identified; however, there is asymmetric decompression of the distal small bowel in the right lower quadrant. Favor enteritis; however, if there is high clinical index of suspicion for developing small bowel obstruction, serial radiographic evaluation or small-bowel follow-through should provide additional information. 2. Moderate stool burden. No diverticulitis. No free intraperitoneal fluid or pneumoperitoneum. Electronically signed by: Reynaldo George MD 02/27/25 20:55 PM
--- NOTE | 2025-02-27 21:00 | CT Scan Report ---
Exam(s): CTA HEAD W/WO Contrast IV Amt: 119ml opitray 320 EXAM: CT Angiography Head Without and With Intravenous Contrast CLINICAL HISTORY: dizziness. TECHNIQUE: Axial computed tomographic angiography images of the head without and with intravenous contrast. CTDI is 52.48 mGy and DLP is 1136.55 mGy-cm. Automated exposure control was utilized for the study. A dose lowering technique was utilized adhering to the principles of ALARA. MIP reconstructed images were created and reviewed. CONTRAST: Patient received 119ml Optiray 320 of IV contrast COMPARISON: CTA head 02/27/2025 FINDINGS: VASCULATURE: Right internal carotid artery: No acute findings. Intracranial segment is patent with no significant stenosis. No aneurysm. Right anterior cerebral artery: Normal. No occlusion or significant stenosis. No aneurysm. Right middle cerebral artery: Normal. No occlusion or significant stenosis. No aneurysm. Right posterior cerebral artery: Normal. No occlusion or significant stenosis. No aneurysm. Right vertebral artery: Unremarkable as visualized. Left internal carotid artery: No acute findings. Intracranial segment is patent with no significant stenosis. No aneurysm. Left anterior cerebral artery: Normal. No occlusion or significant stenosis. No aneurysm. Left middle cerebral artery: Normal. No occlusion or significant stenosis. No aneurysm. Left posterior cerebral artery: Normal. No occlusion or significant stenosis. No aneurysm. Left vertebral artery: Unremarkable as visualized. Basilar artery: Normal. No occlusion or significant stenosis. No aneurysm. HEAD: Brain: No intracranial hemorrhage. No significant mass effect. No cortical infarct. No abnormal parenchymal enhancement. Ventricles: Normal. No ventriculomegaly. Bones/joints: No acute fracture. Soft tissues: Normal. Sinuses: Unremarkable as visualized. No acute sinusitis. Mastoid air cells: Unremarkable as visualized. No mastoid effusion. IMPRESSION: 1. Precontrast imaging demonstrates no intracranial hemorrhage, mass effect or midline shift. No cortical infarct. 2. Negative intracranial CTA examination. No significant alteration from the prior examination. Electronically signed by: Reynaldo George MD 02/27/25 20:59 PM
--- NOTE | 2025-02-27 21:02 | CT Scan Report ---
Exam(s): CTA NECK With Contrast IV Amt: 119ml opitray 320 EXAM: CT Angiography Neck With Intravenous Contrast CLINICAL HISTORY: dizziness. TECHNIQUE: Routine carotid CT angiography protocol was performed with intravenous contrast. NASCET criteria using the distal ICAs for comparison were used for evaluation of stenoses. CTDI is 29.69 mGy and DLP is 519.41 mGy-cm. Automated exposure control was utilized for the study. A dose lowering technique was utilized adhering to the principles of ALARA. MIP reconstructed images were created and reviewed. CONTRAST: Patient received 119ml Optiray 320 of IV contrast COMPARISON: CTA neck 02/21/2024 FINDINGS: VASCULATURE: Right common carotid artery: Normal. No occlusion or significant stenosis. No dissection. Right internal carotid artery: The right internal carotid artery is tortuous but is patent. Extracranial segment is patent with no occlusion or significant stenosis. No dissection. Right external carotid artery: Normal. No occlusion. Right vertebral artery: Normal. No occlusion or significant stenosis. No dissection. Left common carotid artery: The left common carotid artery is patent. Left internal carotid artery: The left mid to distal internal carotid artery is tortuous but is patent. Extracranial segment is patent with no occlusion or significant stenosis. No dissection. Left external carotid artery: Normal. No occlusion. Left vertebral artery: Normal. No occlusion or significant stenosis. No dissection. Brachiocephalic and subclavian arteries: The ostia of the brachiocephalic and left common carotid artery are not included. The left subclavian origin is maintained. Aorta: The aortic arch is predominantly excluded from the field-of- view. NECK: Bones/joints: Normal. No acute fracture. Soft tissues: Normal. Lung apices: Clear. CAROTID STENOSIS REFERENCE USING NASCET CRITERIA: % ICA stenosis = (1 - narrowest ICA diameter/diameter of distal cervical ICA) x 100. Mild - <50% stenosis. Moderate - 50-69% stenosis. Severe - 70-94% stenosis. Near occlusion - 95-99% stenosis. Occluded - 100% stenosis. IMPRESSION: Negative cervical CTA examination. No significant alteration from the prior examination. Electronically signed by: Reynaldo George MD 02/27/25 21:01 PM
--- NOTE | 2025-02-27 21:11 | XRay Report ---
EXAM: Portable AP chest radiograph TECHNIQUE: AP portable radiograph of the chest was obtained. INDICATION: Shortness of breath Comparison: Chest radiograph February 20, 2024 FINDINGS: LINES and TUBES: None CARDIOVASCULAR: Cardiac silhouette is stable enlarged in size. LUNGS/PLEURA: No focal consolidation identified. Chronic interstitial lung changes. Bibasilar densities are likely atelectasis though difficult to exclude mild airspace disease. No significant pleural fluid. No discernible pneumothorax. OSSEOUS/OTHER: No displaced acute osseous process identified. IMPRESSION: Bibasilar densities are likely atelectasis though difficult to exclude mild airspace disease. Electronically signed by Hitesh Chang 02-27-2025 9:11 PM
--- NOTE | 2025-02-27 21:46 | History & Physical Report ---
Date of Service February 27, 2025 Assessment & Plan (1) Dizziness: (2) Ambulatory dysfunction: (3) History of cerebellar stroke: (4) Constipation: Plan Patient is a 64-year-old female with a past medical history including type II DM, hypothyroidism, schizoaffective disorder, HLD, GERD, recent right cerebellar CVA Dx 12/28/2024, vertigo. Patient presented via EMS due to persistent dizziness/vertigo throughout the day as well as 1 episode of vomiting. Patient was unable to get out of her chair and slept for most of the day. She is being admitted for symptomatic management of dizziness and to have PT/OT evals for ambulatory dysfunction. #dizziness Suspect residual symptoms from recent CVA versus possible new neurologic event. Head and neck CTA negative for acute changes. No infectious originno leukocytosis, VSS, afebrile, CXR negative, procal negative. Electrolytes stable. Will defer further imaging such as MRI and echocardiogram as patient just recently had both of these approximately 2 months ago and is still on DAPT + high intensity statin, further imaging would not change current course of treatment Continue Plavix, asa, Crestor Symptomatic management with meclizine and Zofran as needed LR at 80 mL/hour times 1L Neurochecks every 4 hours, could consider repeat imaging if clinically declines PT/OT ordered BioFire pending - repeat CBC, BMP, mag with am labs #constipationpatient reported constipation at home and AP CT showed moderate stool burden. Defer further imaging as low suspicion for bowel obstruction given abdomen nontender at time of admission MiraLAX daily #Lactic acidosislactate 2.1 -> 1.6, resolved with gentle IVF in the ED. No acute findings suspecting infectious origin. IVF as above Follow blood cultures - hold metformin Trend CBC #T2DM/Diabetic polyneuropathy - most recent A1c 6.6% - Hold metformin Loose SSI ordered - Continue gabapentin 300 mg HS #Hypothyroidism Continue Synthroid #Schizoaffective disorder continue clozapine 150 mg QAM and 350 mg HS, lamotrigine 200 mg BID, Seroquel 100 mg QAM and 300 mg HS #Hyperlipidemia continue rosuvastatin 20 mg HS #GERD continue PPI VTE ppx: SCDs, low risk - consider chemical ppx if prolonged hospitalization Dispo: med surg Admission and Anticipated Discharge Date Admission Date: 02/27/25 History of Present Illness Chief Complaint: dizziness Primary Care Provider: Hillary Clarke MD Patient is a 64-year-old female with a past medical history including type II DM, hypothyroidism, schizoaffective disorder, HLD, GERD, recent cerebellar CVA Dx 12/28/2024. Patient presented via EMS due to persistent dizziness/vertigo throughout the day as well as 1 episode of vomiting. Patient was unable to get out of her chair and slept for most of the day. She is being admitted for symptomatic management of dizziness and to have PT/OT evals for ambulatory dysfunction. Patient seen at bedside. She stated she woke up today and felt like the room was spinning which was similar to her presentation with recent CVA and she is worried she had another stroke. She also vomited 1 time when she tried to get up and eat which did not happen last time. She does endorse intermittent diffuse abdominal pain however feels as though she is constipated. She did take meclizine at home which helped with the dizziness and typically helps her. She did not take anything for the constipation. She stated she also slept all day which is very unlike her and she was unable to get out of her lift chair. She does endorse some rhinorrhea however denies any other flulike symptoms such as cough, shortness of breath, ear pain, sore throat. She also endorses burning with urination however was recently treated for UTI 7 days ago with Keflex which she finished the course of. UA is unremarkable in the ED. She denies any chest pain, shortness of breath, current abdominal pain, facial droop, slurred speech. She does endorse bilateral lower and upper extremity numbness and tingling which is baseline for her with her neuropathy. She denies any nicotine use. She is due for her evening medications. When discussing CODE STATUS patient felt very unsure of what her wishes would be and would like time to think about it however would like to be full code for now. She is going to discuss with her friends and update us in the future. Patient was recently admitted from 12/28 to 12/31 due to dizziness found to have a small acute right cerebellar CVA and was started on Plavix and aspirin x 3 weeks then transition to Plavix alone and Crestor. Patient reports that she has been on both Plavix and aspirin since then. She was discharged to [facility] and then home. Allergies Allergy/AdvReac Type Severity Reaction Status Date / Time lithium Allergy Unknown Unknown Verified 01/12/25 14:52 escitalopram AdvReac Severe Manic Verified 01/12/25 14:52 haloperidol AdvReac Intermediate dystonia Verified 01/12/25 14:52 Penicillins AdvReac Intermediate Gastrointestinal Verified 01/12/25 14:52 Upset valproic acid AdvReac Intermediate Leg Verified 01/12/25 14:52 Swelling Home Medications Medication Instructions Recorded Confirmed Type clozapine 100 mg tablet 300 mg PO HS 01/28/18 02/27/25 History lamotrigine 200 mg tablet 200 mg PO BID 02/25/23 02/27/25 History (Lamictal) quetiapine 300 mg tablet (Seroquel) 300 mg PO HS 02/27/23 02/27/25 History quetiapine 100 mg tablet 100 mg PO QAM 01/17/24 02/27/25 History cholecalciferol (vitamin D3) 25 25 mcg PO BID 90 days #180 tabs 02/07/24 02/27/25 Rx mcg (1,000 unit) tablet blood-glucose meter (3G MultimediaTouch #1 ea 03/27/24 02/27/25 Rx Ultra2 Meter) blood sugar diagnostic (OneTouch #100 ea 03/29/24 02/27/25 Rx Ultra Test strips) lancets 30 gauge (OneTouch #100 ea 04/14/24 02/27/25 Rx UltraSoft 2 Lancet) aspirin 81 mg tablet,delayed 81 mg PO QAM #90 tabs 04/15/24 02/27/25 Rx release (Enteric Coated Aspirin) levothyroxine 150 mcg tablet 150 mcg PO QAM #90 tabs 06/02/24 02/27/25 Rx rosuvastatin 20 mg tablet 20 mg PO HS #90 tabs 08/14/24 02/27/25 Rx lancets 33 gauge (OneTouch Delica #100 ea 10/13/24 02/27/25 Rx Plus Lancet) miscellaneous medical supply #1 ea 10/13/24 02/27/25 Rx (Blood Pressure Cuff) acetaminophen 325 mg tablet 650 mg (2 x 325 mg) PO Q8 PRN pain 12/18/24 02/27/25 Rx #240 tabs gabapentin 300 mg capsule 300 mg PO HS #30 caps 12/22/24 02/27/25 Rx (Neurontin) meclizine 12.5 mg tablet 25 mg (2 x 12.5 mg) PO TID PRN 12/22/24 02/27/25 Rx dizziness #168 tabs cyanocobalamin (vitamin B-12) 500 500 mcg PO QAM #30 tabs 12/23/24 02/27/25 Rx mcg tablet folic acid 1 mg tablet 1 mg PO QAM #30 tabs 12/23/24 02/27/25 Rx metformin 500 mg tablet,extended 1,000 mg (2 x 500 mg) PO QAM #120 12/29/24 02/27/25 Rx release 24 hr tabs omeprazole 20 mg capsule,delayed 40 mg (2 x 20 mg) PO QAM 30 days 12/29/24 02/27/25 Rx release #60 caps Bedside Commode #1 ea 01/12/25 02/27/25 Rx Hospital Bed Homecare #1 ea 01/12/25 02/27/25 Rx clopidogrel 75 mg tablet 75 mg PO QAM 02/27/25 02/27/25 History clozapine 100 mg tablet 100 mg PO QAM 02/27/25 02/27/25 History clozapine 50 mg tablet 50 mg PO AMHS 02/27/25 02/27/25 History ferrous sulfate 325 mg (65 mg 325 mg PO QAM 02/27/25 02/27/25 History iron) tablet (Iron (ferrous sulfate)) Past Med/Surg History Problem List (Updated 02/27/25 @ 22:15 by Olivia Guevara PA-C) Constipation Ambulatory dysfunction Acute generalized abdominal pain (Acute) Emesis (Acute) History of cerebellar stroke (Acute) Dizziness (Acute) Risk for falls Cerebellar stroke, acute Weakness (Acute) Diabetes mellitus type 2, controlled Generalized weakness Lightheadedness Venous stasis dermatitis of both lower extremities (Acute) Low T4 (Acute) Fall (Acute) Anemia (Acute) Dizziness (Acute) Urine incontinence Tremor Esophageal dysmotility Abnormal CT scan, chest Bed sore Knee pain Hypoglycemia Folate deficiency Orthostatic hypotension Weakness (Acute) Vitamin B12 deficiency Fall (Acute) Severe morning sleep inertia Multiple pulmonary nodules determined by computed tomography of lung Anemia (Acute) Schizoaffective disorder (Chronic) Neuropathic pain Enuresis, nocturnal only Iron deficiency anemia Osteoarthritis of right knee Drug-induced parkinsonism Vitamin D deficiency Bilateral lumbar radiculopathy (Acute) Cataract (Acute) Gait instability (Acute) Hypertension (Acute) 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 Hypothyroidism Hyperlipidemia Dizziness (Chronic) Medical History AMS (altered mental status) Calf swelling Schizoaffective disorder Multiple pulmonary nodules pt unsure Vil[place] Hypothyroidism HTN (hypertension) Hyperlipidemia Drug-induced parkinsonism pt unsure - sometimes has tremors Dizziness Type 2 diabetes mellitus Cataract Bilateral Anemia Pneumonia Currently on 3x antibiotics for 10 days - Thee - pt denies symptoms "was just found on CT scan" Anxiety Poor historian Hx of diverticulitis of colon History of colon polyps Brain TIA unsure "2019 maybe, not sure" Depression Frequent falls most recent 01/09/24 [facility] Chronic back pain GERD (gastroesophageal reflux disease) Asthma inhaler prn Constipation Surgical History History of removal of cyst History of colonoscopy History of tooth extraction History of tonsillectomy and adenoidectomy Family History Grandmother (Paternal) Diabetes Grandmother (Maternal) Diabetes Mother Anemia Bipolar disorder Cardiomyopathy Coronary heart disease Father Diabetes FH: kidney cancer Other No family history of adverse response to anesthesia Parkinson disease Parkinsonian syndrome Social History Smoking Status: Never smoker Second Hand Exposure: No; Do You Dip or Chew Tobacco: No; Hx Alcohol Use: No Hx Substance Use: No Preferred Language: Belarusian Communication Ability: Effective Visual Impairment: No Limitations Hearing Ability: Normal Stone [employer] Frames Required: No Beliefs That Will Affect Care: None marital status: Single Current Living Situation: Alone Current Living Situation Comment: Lives alone and does not want to continue to live by herself Feels Safe at Home: Yes Gender Identity: Female Assistive Devices: Raised Toilet Seat and Walker Review of Systems Review of Systems: see HPI Physical Exam Physical Exam: The patient is awake, alert and oriented 3, well developed and well nourished, normocephalic and atraumatic, in no acute distress. Non-toxic appearing. HEENT- EOMI, mucous membranes dry. Hearing grossly intact. Heart-normal S1 and S2. No murmurs, rubs or gallops. Lungs-clear bilaterally, no respiratory distress, no accessory muscle use. Abdomen-normal bowel sounds and soft. No ascites noted. Non-tender. Extremities- no clubbing, cyanosis, or edema. Rheumatologic-normal range of motion. Psychiatric-normal affect. Neurologic: HINTS exam consistent with central vertigo Patient with right eye strabismus at baseline Results & Data Results & Data Vital Signs (Past 12 Hours) Vital Signs Temp Pulse Pulse Resp BP BP Pulse Ox 02/27/25 21:44 77 02/27/25 21:12 78 17 96 02/27/25 21:00 78 18 98 02/27/25 21:00 122/77 02/27/25 21:00 122/77 02/27/25 21:00 122/77 02/27/25 21:00 122/77 02/27/25 21:00 122/77 02/27/25 20:51 78 15 97 02/27/25 20:42 78 16 97 02/27/25 20:30 80 16 97 02/27/25 20:30 117/73 02/27/25 20:30 117/73 02/27/25 20:30 117/73 02/27/25 20:30 117/73 02/27/25 20:30 117/73 02/27/25 20:25 124/77 02/27/25 20:25 124/77 02/27/25 20:25 124/77 02/27/25 20:25 124/77 02/27/25 20:25 124/77 02/27/25 20:24 83 21 95 02/27/25 20:12 79 13 02/27/25 20:03 97 H 02/27/25 19:57 79 20 122/77 96 02/27/25 19:42 86 16 02/27/25 19:30 83 17 02/27/25 19:30 117/79 02/27/25 19:30 117/79 02/27/25 19:30 117/79 02/27/25 19:30 117/79 02/27/25 19:30 117/79 02/27/25 19:21 82 12 96 02/27/25 19:12 83 15 95 02/27/25 19:00 82 14 95 02/27/25 19:00 134/75 02/27/25 19:00 134/75 02/27/25 19:00 134/75 02/27/25 19:00 134/75 02/27/25 19:00 134/75 02/27/25 18:51 83 18 96 02/27/25 18:42 82 15 97 02/27/25 18:30 141/80 H 02/27/25 18:30 141/80 H 02/27/25 18:30 141/80 H 02/27/25 18:30 141/80 H 02/27/25 18:30 141/80 H 02/27/25 18:30 83 27 H 97 02/27/25 18:24 91 H 20 98 02/27/25 18:12 81 20 97 02/27/25 18:01 126/70 02/27/25 18:01 126/70 02/27/25 17:57 36.7 C 78 18 126/70 97 02/27/25 17:57 97 02/27/25 17:55 97 02/27/25 17:49 82 02/27/25 17:26 36.7 C 83 18 126/70 97 O2 Del Method 02/27/25 21:44 02/27/25 21:12 02/27/25 21:00 02/27/25 21:00 02/27/25 21:00 02/27/25 21:00 02/27/25 21:00 02/27/25 21:00 02/27/25 20:51 02/27/25 20:42 02/27/25 20:30 02/27/25 20:30 02/27/25 20:30 02/27/25 20:30 02/27/25 20:30 02/27/25 20:30 02/27/25 20:25 02/27/25 20:25 02/27/25 20:25 02/27/25 20:25 02/27/25 20:25 02/27/25 20:24 02/27/25 20:12 02/27/25 20:03 02/27/25 19:57 Room Air 02/27/25 19:42 02/27/25 19:30 02/27/25 19:30 02/27/25 19:30 02/27/25 19:30 02/27/25 19:30 02/27/25 19:30 02/27/25 19:21 02/27/25 19:12 02/27/25 19:00 02/27/25 19:00 02/27/25 19:00 02/27/25 19:00 02/27/25 19:00 02/27/25 19:00 02/27/25 18:51 02/27/25 18:42 02/27/25 18:30 02/27/25 18:30 02/27/25 18:30 02/27/25 18:30 02/27/25 18:30 02/27/25 18:30 02/27/25 18:24 02/27/25 18:12 02/27/25 18:01 02/27/25 18:01 02/27/25 17:57 Room Air 02/27/25 17:57 Room Air 02/27/25 17:55 Room Air 02/27/25 17:49 02/27/25 17:26 Room Air Laboratory Results Reviewed CBC, PT/INR, CMP, lactate, troponin, procalcitonin, UA, lipase Ordered BioFire Diagnostic Findings reviewed neck CTA, head CTA, CXR, abdomen/pelvis CT Medications Administered ED500 mL NSS@125 mL/hour, Zofran 4 Mg IV ECG Additional Comments: ordered Code Status & VTE Plan Code Status full code VTE Prophylaxis Plan VTE Prophylaxis will be ordered: Yes Supervising Physician Co-Signing Physician Notes Patient seen and examined, chart reviewed, case discussed with MARKY Guevara and I agree with the assessment and plan as above. In brief, patient is a 64yo female with multiple medical comorbidities - recent cerebellar stroke in December 2024 on ASA, Plavix and Crestor. Nausea and vomiting, non-bloody and non-bilious. Patient reports significant dizziness, increased sleepiness today On exam she is resting comfortably, NAD SKin - no rash HEENT -Mildly dry mucus membranes, neck supple Heart - +S1/S2, regular, no m/r/g Lungs -CTA Abd -soft, NT/ND Neuro - patient with some dysmetria noted on finger to nose otherwise strength, sensation and CN intact Labs and images reviewed Assessment/Plan -IVF and electrolyte repletion -Continue ASA - will continue DAPT for now - was originally on it for 3 weeks which would be 01/18/25 -Continue Crestor -PT/OT evaluation -Will defer repeat MRI for now as patient is already on optimum therapy for CVA. -Remainder as above PG Care Time/CCT Total # of Minutes Spent Total Time Spent with Patient: Total time spent is greater than 50% in coordination of care (as documented) at patient's floor/unit and/or counseling patient: Coding Level of Care Code 97902 INT INP/OBS CARE 3/75MIN Diagnoses Dizziness R42 Ambulatory dysfunction R26.2 History of cerebellar stroke Z86.73 Constipation K59.00
[2025-02-27] MEDS: POLYETHYLENE (MIRALAX) 17 GM PACK PO STA (21:56)
[2025-02-27] MEDS: MECLIZINE HCL 25 MG TAB PO STA (21:56)
[2025-02-27 22:42] LABS: Chlamydia pneumoniae PCR Not Detected (NotDetected); Coronavirus 229E PCR Not Detected (NotDetected); Coronavirus CoV-2 (COVID19)PCR Not Detected (NotDetected); Coronavirus HKU1 PCR Not Detected (NotDetected); Coronavirus NL63 PCR Not Detected (NotDetected); Coronavirus OC43PCR Not Detected (NotDetected); Human Metapneumovirus PCR Not Detected (NotDetected); Parainfluenza Virus 1 PCR Not Detected (NotDetected); Parainfluenza Virus 2 PCR Not Detected (NotDetected); Parainfluenza Virus 3 PCR Not Detected (NotDetected); Parainfluenza Virus 4 PCR Not Detected (NotDetected); Respiratory Syncytial VirusPCR Not Detected (NotDetected); Rhinovirus/Enterovirus PCR Not Detected (NotDetected)
[2025-02-28] MEDS ORDERED: DEXTROSE 50% 50 ML SYRINGE IV PRN (00:09)
[2025-02-28] MEDS ORDERED: GLUCAGON FOR INJ 1 MG VIAL SQ PRN (00:09)
[2025-02-28] MEDS ORDERED: CARBOHYDRATES FOR HYPOGLYCEMIA PO PRN (00:09)
[2025-02-28] MEDS ORDERED: GLUCOSE 10 TAB/TUBE PO PRN (00:09)
[2025-02-28] MEDS ORDERED: GLUCOSE 40% GEL 15 GM TUBE PO PRN (00:09)
[2025-02-28] MEDS ORDERED: MELATONIN 3 MG TAB PO PRN (00:09)
[2025-02-28] MEDS: lamoTRIgine 100 MG TAB PO SCH (02:45)
[2025-02-28] MEDS: ROSUVASTATIN CALCIUM 20 MG TAB PO SCH (02:46)
[2025-02-28] MEDS: LACTATED RINGER'S 1,000 ML IV SCH (02:49)
[2025-02-28] MEDS: LEVOTHYROXINE SODIUM 150 MCG TABLET PO SCH (05:41)
[2025-02-28 06:32] LABS: Hematocrit (blood only) 30.4 % (37.0-47.0); Hemoglobin 9.5 g/dL (12.0-16.0); Immature Granulocytes # (auto) 0.03 K/uL (0.01-0.20); Immature Granulocytes % (auto) 0.4 %; Mean Corpuscular Hemoglobin 30.0 pg (25.0-34.0); Mean Corpuscular Volume 95.9 fL (80.0-100.0); Platelet Count 218 K/uL (130-400); RDW Standard Deviation 51.6 fL (36.4-46.3); Red Blood Count 3.17 M/uL (4.20-5.40); White Blood Count 6.78 K/ul (4.8-10.8)
[2025-02-28 07:03] LABS: Anion Gap 7.0 (3-11); Calcium 8.2 mg/dl (8.6-10.3); Carbon Dioxide 26.0 mmol/L (21-32); Chloride 105.0 mmol/L (98-107); Magnesium 1.9 mg/dl (1.7-2.4); Potassium 4.6 mmol/L (3.5-5.1); Sodium 138.0 mmol/L (136-145)
[2025-02-28 07:08] LABS: Blood Urea Nitrogen 22.0 mg/dl (6-23); Creatinine Clr Calc Pharmacy 77.8 ml/min; Glucose 131.0 mg/dl (70-99(Fasting))
[2025-02-28] MEDS: INSULIN ASPART PER UNIT CHARGE SC SCH (08:26)
[2025-02-28] MEDS: ASPIRIN 81 MG ECTAB PO SCH (10:01)
[2025-02-28] MEDS: POLYETHYLENE (MIRALAX) 17 GM PACK PO SCH (10:01)
[2025-02-28] MEDS: CLOPIDOGREL BISULFATE 75 MG TAB PO SCH (10:01)
[2025-02-28] MEDS: DOCUSATE SODIUM 100 MG CAP PO PRN (10:02)
--- NOTE | 2025-02-28 11:28 | Hospitalist Progress Note ---
Date of Service February 28, 2025 Assessment & Plan (1) Dizziness: (2) Ambulatory dysfunction: (3) History of cerebellar stroke: Plan Patient is a 64-year-old female with a past medical history including type II DM, hypothyroidism, schizoaffective disorder, HLD, GERD, recent right cerebellar CVA Dx 12/28/2024, vertigo. Patient presented via EMS due to persistent dizziness/vertigo throughout the day as well as 1 episode of vomiting. Patient was unable to get out of her chair and slept for most of the day. She is being admitted for symptomatic management of dizziness and to have PT/OT evals for ambulatory dysfunction. #dizziness/history of cerebellar CVA/nausea/vomiting Suspect residual symptoms from recent CVA versus possible new neurologic event. Head and neck CTA negative for acute changes. No obvious infectious originno leukocytosis, VSS, afebrile, CXR negative, procal negative. Lactate mildly elevated and came down to normal after IV fluids. She did seem somewhat dehydrated on admission and now has improved. Orthostatics negative but were checked after IV fluid hydration. She has anemia but her hemoglobin is fairly stable at 9-10 for many years. Electrolytes stable. BioFire is negative. Her chronic dizziness could be caus ed by side effects of multiple psychiatric medications, but perhaps she is developing some sort of viral gastroenteritis given the nausea/vomiting and findings on CT abdomen/pelvis of distended stomach with retained oral contents and fluid as well as fluid distended small bowel loops throughout central abdomen and pelvis. - Check brain MRI for stroke-negative Continue Plavix, Crestor, but can discontinue aspirin as it has been over 2 months since her stroke and MRI brain here negative for another stroke Symptomatic management with meclizine and Zofran as needed - Monitor for fever or other infectious signs PT/OT ordered and pending #constipationpatient reported constipation at home and AP CT showed moderate stool burden. But also with somewhat of an ileus. This may have contributed to nausea/vomiting Defer further imaging as low suspicion for bowel obstruction given abdomen nontender at time of admission MiraLAX daily #Lactic acidosislactate 2.1 -> 1.6, resolved with gentle IVF in the ED. likely due to dehydration Follow blood cultures - hold metformin Trend CBC #T2DM/Diabetic polyneuropathy - most recent A1c 6.6% - Hold metformin Loose SSI ordered - Continue gabapentin 300 mg HS #Hypothyroidism TSH 3.3 in 01/2025 - Continue home Synthroid #Schizoaffective disorder no acute issues - Continue clozapine 150 mg QAM and 350 mg HS, lamotrigine 200 mg BID, Seroquel 100 mg QAM and 300 mg HS #Hyperlipidemia no acute issues - Continue rosuvastatin 20 mg HS #GERD continue PPI DVT prophylaxis-SCDs, add Lovenox Disposition-continued stay on med surg, awaiting PT/OT evaluations Admission and Anticipated Discharge Date Admission Date: February 27, 2025 Subjective Patient reports feeling very tired. She slept all night and slept all morning so far. Her nausea is gone away and she is tolerating a diet. No abdominal pain, no diarrhea or constipation. Denies chest pains or shortness of breath. Physical Exam Constitutional: WD/WN, vitals as above Eyes: PERRL, conjunctivae normal, anicteric sclerae Neck: trachea midline, no thyromegaly Respiratory: normal respiratory effort, lungs clear to auscultation Cardiovascular: RRR, no murmur, no edema Chest (Breasts): Chest: normal inspection of chest Gastrointestinal (Abdomen): normal bowel sounds, soft, nontender, no hepato splenomegaly Musculoskeletal: Extremities: extremities normal to inspection; no cyanosis and no clubbing Skin: no rashes, warm and dry Neurologic: moves all extremities and awake; no focal motor deficits Lymphatic: no lymphedema Results & Data Results & Data Vital Signs (Past 12 Hours) Vital Signs Temp Pulse Resp BP Pulse Ox O2 Del Method 02/28/25 07:03 36.8 C 87 16 137/81 96 Room Air 02/28/25 00:09 36.6 C 81 19 124/80 94 Room Air 02/27/25 23:30 Room Air 02/27/25 23:30 36.6 C 81 14 124/80 94 Room Air 02/27/25 23:29 Room Air Laboratory Results CBC, BMP, magnesium, lactate, BioFire reviewed Diagnostic Findings Brain MRI 02/28/25 07:28 MRI BRAIN WITH and WITHOUT CONTRAST TECHNIQUE: An MRI examination of the brain was performed utilizing sagittal and axial T1-weighted images as well as axial T2-weighted, FLAIR, gradient echo and diffusion-weighted images. Postcontrast T1-weighted images were also acquired in axial and sagittal planes. IV CONTRAST: 7 mL of Gadavist was intravenously administered. INDICATION: Dizziness COMPARISON: Brain CT February 20, 2024 FINDINGS: The ventricular, sulcal and cisternal spaces are normal in caliber. There is no evidence of intracranial mass lesion, hydrocephalus, infarct, extra-axial fluid collection, restricted diffusion or parenchymal hemorrhage. Age-related involutional changes of brain chronic white matter ischemic changes. There is no suspicious parenchymal or extra-axial enhancement. The cerebellar tonsils are normal in position. The pituitary gland is not enlarged. The major arterial vascular structures of the skull base are patent. No intraorbital soft tissue mass lesion is observed. The visualized paranasal sinuses are aerated. IMPRESSION: No acute intracranial process or suspicious intracranial enhancement is identified. Chronic findings as above Electronically signed by Hitesh Chang 02-28-2025 5:43 PM PG Care Time/CCT Total # of Minutes Spent Total Time Spent with Patient: Total time spent is greater than 50% in coordination of care (as documented) at patient's floor/unit and/or counseling patient: Coding Level of Care Code 50999 SUB INP/OBS CARE 2/35MIN Diagnoses Dizziness R42 Ambulatory dysfunction R26.2 History of cerebellar stroke Z86.73
[2025-02-28] MEDS: GADOBUTROL 65ML VIAL IV ONE (15:36)
--- NOTE | 2025-02-28 17:43 | Magnetic Resonance Report ---
MRI BRAIN WITH and WITHOUT CONTRAST TECHNIQUE: An MRI examination of the brain was performed utilizing sagittal and axial T1-weighted images as well as axial T2-weighted, FLAIR, gradient echo and diffusion-weighted images. Postcontrast T1-weighted images were also acquired in axial and sagittal planes. IV CONTRAST: 7 mL of Gadavist was intravenously administered. INDICATION: Dizziness COMPARISON: Brain CT February 20, 2024 FINDINGS: The ventricular, sulcal and cisternal spaces are normal in caliber. There is no evidence of intracranial mass lesion, hydrocephalus, infarct, extra-axial fluid collection, restricted diffusion or parenchymal hemorrhage. Age-related involutional changes of brain chronic white matter ischemic changes. There is no suspicious parenchymal or extra-axial enhancement. The cerebellar tonsils are normal in position. The pituitary gland is not enlarged. The major arterial vascular structures of the skull base are patent. No intraorbital soft tissue mass lesion is observed. The visualized paranasal sinuses are aerated. IMPRESSION: No acute intracranial process or suspicious intracranial enhancement is identified. Chronic findings as above Electronically signed by Hitesh Chang 02-28-2025 5:43 PM
[2025-02-28] MEDS: ACETAMINOPHEN 325 MG TAB PO PRN (19:34)
[2025-02-28] MEDS: ENOXAPARIN INJ 40 MG/0.4 ML SYR SQ SCH (19:35)
--- NOTE | 2025-02-28 19:57 | Electrocardiogram Report ---
Test Reason : Blood Pressure : */* mmHG Vent. Rate : 82 BPM Atrial Rate : 82 BPM P-R Int : 164 ms QRS Dur : 100 ms QT Int : 404 ms P-R-T Axes : 57 -27 50 degrees QTcB Int : 472 ms Normal sinus rhythm Low voltage QRS Borderline ECG When compared with ECG of 28-Dec-2024 12:06, No significant change was found Confirmed by Leonor Sinclair ([place]ali) on 02/28/2025 7:57:28 PM Referred By: REFERRED SELF Confirmed By: eLonor Sinclair
[2025-02-28] MEDS: GABAPENTIN 300 MG CAP PO SCH (20:27)
[2025-02-28] MEDS: MECLIZINE HCL 25 MG TAB PO PRN (20:27)
[2025-03-01 07:41] LABS: Hematocrit (blood only) 29.1 % (37.0-47.0); Hemoglobin 9.3 g/dL (12.0-16.0); Immature Granulocytes # (auto) 0.02 K/uL (0.01-0.20); Immature Granulocytes % (auto) 0.4 %; Mean Corpuscular Hemoglobin 30.4 pg (25.0-34.0); Mean Corpuscular Volume 95.1 fL (80.0-100.0); Platelet Count 209 K/uL (130-400); RDW Standard Deviation 50.9 fL (36.4-46.3); Red Blood Count 3.06 M/uL (4.20-5.40); White Blood Count 4.93 K/ul (4.8-10.8)
[2025-03-01 07:58] LABS: Alanine Aminotransferase 9.0 U/L (7-52); Albumin Globulin Ratio 2.0 (0.9-2); Albumin Level 3.8 gm/dl (3.4-5.0); Alkaline Phosphatase 57.0 U/L (34-104); Anion Gap 5.0 (3-11); Bilirubin,Total 0.3 mg/dl (0.2-1.0); Blood Urea Nitrogen 18.0 mg/dl (6-23); Calcium 8.2 mg/dl (8.6-10.3); Carbon Dioxide 28.0 mmol/L (21-32); Chloride 106.0 mmol/L (98-107); Creatinine Clr Calc Pharmacy 77.8 ml/min; Globulin 1.9 gm/dl (2.5-4.0); Glucose 131.0 mg/dl (70-99(Fasting)); Magnesium 2.1 mg/dl (1.7-2.4); Potassium 4.2 mmol/L (3.5-5.1); Sodium 139.0 mmol/L (136-145); Total Protein 5.7 gm/dl (6.0-8.3)
--- NOTE | 2025-03-01 08:58 | Hospitalist Progress Note ---
Date of Service March 01, 2025 Assessment & Plan (1) Dizziness: (2) Ambulatory dysfunction: (3) History of cerebellar stroke: Plan Patient is a 64-year-old female with a past medical history including type II DM, hypothyroidism, schizoaffective disorder, HLD, GERD, recent right cerebellar CVA Dx 12/28/2024, vertigo. Patient presented via EMS due to persistent dizziness/vertigo throughout the day as well as 1 episode of vomiting. Patient was unable to get out of her chair and slept for most of the day. She is being admitted for symptomatic management of dizziness and to have PT/OT evals for ambulatory dysfunction. 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 Continue Plavix, Crestor, but can discontinue aspirin as it has been over 2 months since her stroke and MRI brain here negative for another stroke Symptomatic management with meclizine and Zofran as needed - Monitor for fever or other infectious signs PT/OT ordered and pending #constipation RESOLVED; pt admits to BM on 03/01; CTAP w/ moderate stool burden w/ mild ileus, this may have contributed to N/V MiraLAX daily #Lactic acidosis RESOLVED; lactate 2.1 -> 1.6, resolved with gentle IVF in the ED. likely due to dehydration -Trend CBC #T2DM/Diabetic polyneuropathy - most recent A1c 6.6% - Hold metformin Loose SSI ordered - Continue gabapentin 300 mg HS #Hypothyroidism TSH 3.3 in 01/2025 - Continue home Synthroid #Schizoaffective disorder no acute issues; multiple psychiatric medications may contribute to episodes of dizziness. - Continue clozapine 150 mg QAM and 350 mg HS, lamotrigine 200 mg BID, Seroquel 100 mg QAM and 300 mg HS #Hyperlipidemia no acute issues - Continue rosuvastatin 20 mg HS #GERD continue PPI DVT prophylaxis - SCDs, Lovenox Disposition- Med/Surg - awaiting PT/OT evaluation Admission and Anticipated Discharge Date Admission Date: February 27, 2025 Subjective Pt was sitting in bed today in NAD. She notes that her sx have continued to improve during her inpatient stay. She notes that she currently only experiences dizziness when she first stands up. Pt admits to having a home health aide around last week who was sick. She notes that CEMENT CUTTER she had several episodes of vomiting and noticed that her dizziness became much worse after that. Pt admits to some mild abd discomfort but notes improved appetite. Pt denies cough, congestion, sore throat, and N/V/D. Review of Systems Review of Systems: All systems reviewed & are unremarkable except as noted in Subjective Physical Exam Physical Exam: General: Pt is a 64 y/o obese M in NAD in bed. VS: reviewed -unremarkable Skin: Warm and dry; no lesions or ulcerations Respiratory: CTA bilat, no adventitious sounds noted. Chest expansion is full and symmetrical Cardio: RRR no murmurs Abdomen: Round, normoactive BS x4, mild tenderness to palpation MSK: FROM of extremities, no deformities Extremities: no edema Neuro: A&Ox4, cooperative Results & Data Results & Data Vital Signs (Past 12 Hours) Vital Signs Temp Pulse Resp BP Pulse Ox O2 Del Method 03/01/25 07:27 98.4 F 89 18 107/65 95 Room Air 02/28/25 22:46 98.1 F 78 16 118/75 95 Room Air Laboratory Results Reviewed: CBC, CMP, Calcium, and Magnesium Diagnostic Findings Reviewed: Brain MRI PG Care Time/CCT Total # of Minutes Spent Total Time Spent with Patient: Total time spent is greater than 50% in coordination of care (as documented) at patient's floor/unit and/or counseling patient: Coding Level of Care Code 74844 SUB INP/OBS CARE 2/35MIN Diagnoses Dizziness R42 Ambulatory dysfunction R26.2 History of cerebellar stroke Z86.73
[2025-03-01] MEDS: SODIUM CHLORIDE 0.9% 1,000 ML IV ONE (20:32)
[2025-03-02 06:21] LABS: Hematocrit (blood only) 30.2 % (37.0-47.0); Hemoglobin 9.7 g/dL (12.0-16.0); Mean Corpuscular Hemoglobin 30.7 pg (25.0-34.0); Mean Corpuscular Volume 95.6 fL (80.0-100.0); Platelet Count 194 K/uL (130-400); RDW Standard Deviation 50.7 fL (36.4-46.3); Red Blood Count 3.16 M/uL (4.20-5.40); White Blood Count 5.13 K/ul (4.8-10.8)
[2025-03-02 07:00] LABS: Anion Gap 7.0 (3-11); Blood Urea Nitrogen 16.0 mg/dl (6-23); Calcium 8.1 mg/dl (8.6-10.3); Carbon Dioxide 25.0 mmol/L (21-32); Chloride 108.0 mmol/L (98-107); Creatinine Clr Calc Pharmacy 88.3 ml/min; Glucose 123.0 mg/dl (70-99(Fasting)); Potassium 4.2 mmol/L (3.5-5.1); Sodium 140.0 mmol/L (136-145)
--- NOTE | 2025-03-02 09:46 | Hospitalist Progress Note ---
Date of Service March 02, 2025 Assessment & Plan (1) Dizziness: (2) Ambulatory dysfunction: (3) History of cerebellar stroke: Plan Patient is a 64-year-old female with a past medical history including type II DM, hypothyroidism, schizoaffective disorder, HLD, GERD, recent right cerebellar CVA Dx 12/28/2024, vertigo. Patient presented via EMS due to persistent dizziness/vertigo throughout the day as well as 1 episode of vomiting. Patient was unable to get out of her chair and slept for most of the day. She is being admitted for symptomatic management of dizziness and to have PT/OT evals for ambulatory dysfunction. 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 -Continue Plavix, Crestor -Symptomatic management with meclizine and Zofran as needed -Monitor for fever or other infectious signs #constipation RESOLVED; pt admits to BM on 03/01; CTAP w/ moderate stool burden w/ mild ileus, this may have contributed to N/V -MiraLAX daily #Lactic acidosis RESOLVED; lactate 2.1 -> 1.6, resolved with gentle IVF in the ED. likely due to dehydration -Trend CBC #T2DM/Diabetic polyneuropathy - most recent A1c 6.6% -Hold metformin -Loose SSI ordered -Continue gabapentin 300 mg HS #Hypothyroidism TSH 3.3 in 01/2025 -Continue home Synthroid #Schizoaffective disorder no acute issues; multiple psychiatric medications may contribute to episodes of dizziness. -Continue clozapine 150 mg QAM and 350 mg HS, lamotrigine 200 mg BID, Seroquel 100 mg QAM and 300 mg HS #Hyperlipidemia no acute issues -Continue rosuvastatin 20 mg HS #GERD continue PPI DVT prophylaxis - SCDs, Lovenox Disposition- Med/Surg - awaiting safe dispo; PT/OT feel pt is safe to return to prior living arrangement Admission and Anticipated Discharge Date Admission Date: February 27, 2025 Subjective Pt was sitting at bedside in NAD. Pt notes that her dizziness has improved significantly and notes that she only had one episode of nausea and dizziness today. Pt deneis sore throat, cough, congestion, SOB, CP, palpitations, abd pain/discomfort, vomiting, and diarrhea. Review of Systems Review of Systems: All systems reviewed & are unremarkable except as noted in Subjective Physical Exam Physical Exam: General: Pt is a 64 y/o obese M in NAD in bed. VS: reviewed - unremarkable Skin: Warm and dry; no lesions or ulcerations Respiratory: CTA bilat, no adventitious sounds noted. Chest expansion is full and symmetrical Cardio: RRR no murmurs Abdomen: Round, normoactive BS x4, mild tenderness to palpation MSK: FROM of extremities, no deformities Extremities: no edema Neuro: A&Ox4, cooperative Results & Data Results & Data Vital Signs (Past 12 Hours) Vital Signs Temp Pulse Pulse Resp BP BP Pulse Ox 03/02/25 07:52 03/02/25 07:50 75 16 119/75 95 03/02/25 07:25 98.2 F 69 16 81/50 L 89 L 03/02/25 07:23 97.9 F 76 18 121/80 96 03/01/25 22:45 98.2 F 74 18 133/82 96 O2 Del Method 03/02/25 07:52 Room Air 03/02/25 07:50 Room Air 03/02/25 07:25 Room Air 03/02/25 07:23 Room Air 03/01/25 22:45 Room Air Laboratory Results Reviewed: CBC, BMP PG Care Time/CCT Total # of Minutes Spent Total Time Spent with Patient: Total time spent is greater than 50% in coordination of care (as documented) at patient's floor/unit and/or counseling patient: Coding Level of Care Code 20459 SUB INP/OBS CARE 2/35MIN Diagnoses Dizziness R42 Ambulatory dysfunction R26.2 History of cerebellar stroke Z86.73
[2025-03-02] MEDS: ONDANSETRON INJ 2 MG/ML 2 ML VIAL IV PRN (15:53)
[2025-03-02] MEDS: SODIUM CHLORIDE 0.9% 1,000 ML IV ONE (21:22)
[2025-03-03 08:11] LABS: Hematocrit (blood only) 30.8 % (37.0-47.0); Hemoglobin 9.8 g/dL (12.0-16.0); Mean Corpuscular Hemoglobin 30.4 pg (25.0-34.0); Mean Corpuscular Volume 95.7 fL (80.0-100.0); Platelet Count 203 K/uL (130-400); RDW Standard Deviation 50.6 fL (36.4-46.3); Red Blood Count 3.22 M/uL (4.20-5.40); White Blood Count 5.27 K/ul (4.8-10.8)
[2025-03-03 08:46] LABS: Anion Gap 6.0 (3-11); Blood Urea Nitrogen 12.0 mg/dl (6-23); Calcium 8.3 mg/dl (8.6-10.3); Carbon Dioxide 26.0 mmol/L (21-32); Chloride 108.0 mmol/L (98-107); Creatinine Clr Calc Pharmacy 80.7 ml/min; Glucose 143.0 mg/dl (70-99(Fasting)); Potassium 4.1 mmol/L (3.5-5.1); Sodium 140.0 mmol/L (136-145)
--- NOTE | 2025-03-03 09:02 | Discharge Summary ---
Discharge Summary Date of Service March 03, 2025 Principal Dx & Hospital Course #1 = Principal Diagnosis (1) Dizziness: (2) Ambulatory dysfunction: (3) History of cerebellar stroke: Plan #dizziness/history of cerebellar CVA/nausea/vomiting - Patient is a 64-year-old female with a past medical history including type II DM, hypothyroidism, schizoaffective disorder, HLD, GERD, recent right cerebellar CVA Dx 12/28/2024, vertigo. Patient presented via EMS due to persistent dizziness/vertigo throughout the day as well as vomiting. Pt was admitted to the hospital for sx management in addition for PT/OT evaluations for ambulatory dysfunction. While pt was in the ED, a BioFire was performed and was negative for any acute URI. A CTA of the Head/Neck on 02/27 was negative for any acute intracranial changes. A Brain MRI on 02/28 was additionally negative for any acute changes. A CTAP on 02/27 revealed multiple fluid distended small bowel loops that indicated the presence of an enteritis. While in the hospital, pt was provided with Meclizine and Zofran to help with nausea and dizziness. During pts initial PT/OT evaluation, she admitted to frequently experiencing dizziness when she first stood up, pt was then provided with IV fluids which resolved her sx of dizziness. PT/OT evaluated the patient to be safe to return home to her previous living arrangements. #constipation While pt was admitted to the hospital, she experienced constipation. CTAP on 02/27 was w/ moderate stool burden w/ mild ileus, this may have contributed to N/V Pt was provided MiraLAX which resolved the issues. #Lactic acidosis On admission, pt had elevated Lactate which was resolved with gentle IV fluids in the ED, this was most likely d/t dehydration. #T2DM/Diabetic polyneuropathy - Pt should continue home Metformin and Gabapentin as prescribed. #Hypothyroidism Pt should continue home Synthroid as prescribed. #Schizoaffective disorder Pt should continue home clozapine, lamotrigine and Seroquel as prescribed. #Hyperlipidemia Pt should continue home Rosuvastatin as prescribed. #GERD Pt should continue home PPI as prescribed. Disposition - Home, w/ continued Home health MWF Admission HPI Per Admitting Provider Patient is a 64-year-old female with a past medical history including type II DM, hypothyroidism, schizoaffective disorder, HLD, GERD, recent cerebellar CVA Dx 12/28/2024. Patient presented via EMS due to persistent dizziness/vertigo throughout the day as well as 1 episode of vomiting. Patient was unable to get out of her chair and slept for most of the day. She is being admitted for symptomatic management of dizziness and to have PT/OT evals for ambulatory dysfunction. Patient seen at bedside. She stated she woke up today and felt like the room was spinning which was similar to her presentation with recent CVA and she is worried she had another stroke. She also vomited 1 time when she tried to get up and eat which did not happen last time. She does endorse intermittent diffuse abdominal pain however feels as though she is constipated. She did take meclizine at home which helped with the dizziness and typically helps her. She did not take anything for the constipation. She stated she also slept all day which is very unlike her and she was unable to get out of her lift chair. She d oes endorse some rhinorrhea however denies any other flulike symptoms such as cough, shortness of breath, ear pain, sore throat. She also endorses burning with urination however was recently treated for UTI 7 days ago with Keflex which she finished the course of. UA is unremarkable in the ED. She denies any chest pain, shortness of breath, current abdominal pain, facial droop, slurred speech. She does endorse bilateral lower and upper extremity numbness and tingling which is baseline for her with her neuropathy. She denies any nicotine use. She is due for her evening medications. When discussing CODE STATUS patient felt very unsure of what her wishes would be and would like time to think about it however would like to be full code for now. She is going to discuss with her friends and update us in the future. Patient was recently admitted from 12/28 to 12/31 due to dizziness found to have a small acute right cerebellar CVA and was started on Plavix and aspirin x 3 weeks then transition to Plavix alone and Crestor. Patient reports that she has been on both Plavix and aspirin since then. She was discharged to [facility] and then home. Discharge Exam General: Pt is a 64 y/o obese M in NAD, sitting at bedside. VS: reviewed - unremarkable Skin: Warm and dry; no lesions or ulcerations Respiratory: CTA bilat, no adventitious sounds noted. Chest expansion is full and symmetrical Cardio: RRR no murmurs Abdomen: Round, normoactive BS x4, mild tenderness to palpation MSK: FROM of extremities, no deformities Extremities: no edema Neuro: A&Ox4, cooperative Discharge Plan Discharge Items Patient Disposition: Home - Home Health Services Reason For Visit: DIZZINESS, AMBULATORY DYSFUNCTION Discharge Diagnosis: Dizziness Condition on Discharge: Good Activity: Resume your previous activity Non-emergency contact: Primary Care Provider Call non-emergency contact if: you have any medication questions and your symptoms worsen Follow-up/Referrals: Hillary Clarke MD [Primary Care Provider] - (Follow-up within one week ) Diet: Carb Consistent or DM2 Addtl Attending Provider Instructions: You were admitted to the hospital for dizziness. While you were in the ED, a CT and MRI of the brain were preformed and did not reveal any acute processes. A CT of the abdomen revealed likely enteritis. You received IV fluids, meclizine for dizziness, and zofran for nausea during your hospital stay. You were additionally evaluated by PT/OT while you were here d/t your difficulties with ambulation upon initial presentation. With the improvement of your symptoms, it was deemed safe for you to return home to your previous living arrangements with the caregiver that visits you Saturday, Saturday and Saturday. Additionally while you were in the hospital, your CTAP noted stool burden, which was consistent with your complaint of constipation. You were provided with MiraLAX which resolved this issue for you. Medications: Your medication list has been reviewed and reconciled upon discharge to ensure accuracy and continuity of care. An updated list of all your medications is included with your hospital discharge paperwork. Please review this list closely, and make note of any changes. Take your medications as instructed; do not skip a dose of your medicines. Make sure all of your doctors know every medicine you are taking (including [id number] medicines, vitamins, and supplements). Call your primary care provider before taking any new medicines (including over- the-counter medicines, vitamins, and supplements), because some of these may interact with your current medications, or may make your symptoms worse. Tell your primary care provider if you cannot afford your medications. Activity: You can do normal everyday activities as your body allows. Take rest breaks if you feel tired. Do not overexert. Stop activity if you have pain, shortness of breath or feel dizzy. Follow-up appointments: Make an appointment with your primary care physician within one week of discharge. A copy of this summary will be sent to them. Every time you see your primary care physician, or any other doctor, bring your medication list, and a list of questions. CONTACT YOUR PRIMARY CARE PROVIDER if you experience any of the following: Shortness of breath or difficulty breathing Fevers or chills Feeling tired with normal activity or experiencing dizziness or fainting Difficulty following your treatment plan, or difficulty taking medications CALL 911 OR GO TO THE EMERGENCY DEPARTMENT if you experience any of the following: Severe abdominal pain or nausea/vomiting Severe chest pain, or chest pain that radiates (moves) to your jaw or arm Sudden, severe shortness of breath or difficulty breathing Thank you for allowing us to participate in your care. Pending Studies at Discharge: No Stand-Alone Forms: [facility] [employer], Smoking Cessation Medications and DC Order Prescriptions: Continued lamotrigine [Lamictal] 200 mg tablet 200 mg PO BID cholecalciferol (vitamin D3) 25 mcg (1,000 unit) tablet 25 mcg PO BID 90 Days Qty: 180 3RF (DME) blood-glucose meter [OneTouch Ultra2 Meter] Misc See Rx Instructions .Route Qty: 1 0RF Rx Instructions: As directed (DME) OneTouch Ultra Test Strip See Rx Instructions .Route Qty: 100 3RF Rx Instructions: check bsg once daily (DME) lancets [OneTouch UltraSoft 2 Lancet] 30 gauge misc See Rx Instructions .Route Qty: 100 3RF Rx Instructions: check once daily aspirin [Enteric Coated Aspirin] 81 mg tablet,delayed release (DR/EC) 81 mg PO QAM Qty: 90 3RF levothyroxine 150 mcg tablet 150 mcg PO QAM Qty: 90 3RF rosuvastatin 20 mg tablet 20 mg PO HS Qty: 90 2RF acetaminophen 325 mg tablet 650 mg PO Q8 MDD 3000mg PRN (Reason: pain) Qty: 240 5RF gabapentin [Neurontin] 300 mg capsule 300 mg PO HS Qty: 30 0RF meclizine 12.5 mg tablet 25 mg PO TID PRN (Reason: dizziness) Qty: 168 3RF folic acid 1 mg tablet 1 mg PO QAM Qty: 30 6RF cyanocobalamin (vitamin B-12) 500 mcg tablet 500 mcg PO QAM Qty: 30 6RF omeprazole 20 mg capsule,delayed release(DR/EC) 40 mg PO QAM 30 Days Qty: 60 2RF metformin 500 mg tablet extended release 24 hr 1,000 mg PO QAM Qty: 120 2RF quetiapine [Seroquel] 300 mg tablet 300 mg PO HS (DME) Blood Pressure Cuff Misc See Rx Instructions .Route Qty: 1 0RF Rx Instructions: As directed (DME) lancets [OneTouch Delica Plus Lancet] 33 gauge misc See Rx Instructions .Route Qty: 100 0RF Rx Instructions: As directed (DME) Bedside Commode Misc See Rx Instructions .Route Qty: 1 0RF Rx Instructions: As directed (DME) Hospital Bed Homecare Misc See Rx Instructions .Route Qty: 1 0RF Rx Instructions: As directed clozapine 100 mg Tablet 300 mg PO HS Rx Instructions: Take 1 tablet every morning and 3 tablets at bedtime quetiapine 100 mg Tablet 100 mg PO QAM clozapine 100 mg tablet 100 mg PO QAM clozapine 50 mg tablet 50 mg PO AMHS clopidogrel 75 mg tablet 75 mg PO QAM ferrous sulfate [Iron (ferrous sulfate)] 325 mg (65 mg iron) tablet 325 mg PO QAM Admission Data Admit Date/Time: 02/27/25 21:55 Attending Provider: Deandre Judge Admit Provider: Jennifer Stoll Primary Care Provider: Hillary Clarke Other Providers: Jennifer Stoll Hospital Stay Data Consultations 02/27/25 21:10 ED Decision to Admit Stat Diagnostic Imagining Performed 02/27/25 17:55 CT abd pelvis IV con only Stat CT angio head wo/w Stat CT angio neck with con Stat 02/28/25 07:28 MRI Brain [MR brain wo/w con] Stat Discharge Instructions Given to Patient (Per Discharging Provider) You were admitted to the hospital for dizziness. While you were in the ED, a CT and MRI of the brain were preformed and did not reveal any acute processes. A CT of the abdomen revealed likely enteritis. You received IV fluids, meclizine for dizziness, and zofran for nausea during your hospital stay. You were additionally evaluated by PT/OT while you were here d/t your difficulties with ambulation upon initial presentation. With the improvement of your symptoms, it was deemed safe for you to return home to your previous living arrangements with the caregiver that visits you Saturday, Saturday and Saturday. Additionally while you were in the hospital, your CTAP noted stool burden, which was consistent with your complaint of constipation. You were provided with MiraLAX which resolved this issue for you. Medications: Your medication list has been reviewed and reconciled upon discharge to ensure accuracy and continuity of care. An updated list of all your medications is included with your hospital discharge paperwork. Please review this list closely, and make note of any changes. Take your medications as instructed; do not skip a dose of your medicines. Make sure all of your doctors know every medicine you are taking (including soxn-fcd-bduwnkm medicines, vitamins, and supplements). Call your primary care provider before taking any new medicines (including over- the-counter medicines, vitamins, and supplements), because some of these may interact with your current medications, or may make your symptoms worse. Tell your primary care provider if you cannot afford your medications. Activity: You can do normal everyday activities as your body allows. Take rest breaks if you feel tired. Do not overexert. Stop activity if you have pain, shortness of breath or feel dizzy. Follow-up appointments: Make an appointment with your primary care physician within one week of discharge. A copy of this summary will be sent to them. Every time you see your primary care physician, or any other doctor, bring your medication list, and a list of questions. CONTACT YOUR PRIMARY CARE PROVIDER if you experience any of the following: Shortness of breath or difficulty breathing Fevers or chills Feeling tired with normal activity or experiencing dizziness or fainting Difficulty following your treatment plan, or difficulty taking medications CALL 911 OR GO TO THE EMERGENCY DEPARTMENT if you experience any of the following: Severe abdominal pain or nausea/vomiting Severe chest pain, or chest pain that radiates (moves) to your jaw or arm Sudden, severe shortness of breath or difficulty breathing Thank you for allowing us to participate in your care. Total Time Total Time Spent Total Time Spent (In Minutes): Time spent day of discharge 30 minutes including direct patient care, medication reconciliation, documentation, review of labs and images, and coordination of care. Coding Diagnoses Dizziness R42 Ambulatory dysfunction R26.2 History of cerebellar stroke Z86.73
--- NOTE | 2025-03-03 09:16 | Hospitalist Progress Note ---
"Date of Service March 03, 2025 Assessment & Plan (1) Dizziness: (2) Ambulatory dysfunction: (3) History of cerebellar stroke: Plan Patient is a 64-year-old female with a past medical history including type II DM, hypothyroidism, schizoaffective disorder, HLD, GERD, recent right cerebellar CVA Dx 12/28/2024, vertigo. Patient presented via EMS due to persistent dizziness/vertigo throughout the day as well as 1 episode of vomiting. Patient was unable to get out of her chair and slept for most of the day. She is being admitted for symptomatic management of dizziness and to have PT/OT evals for ambulatory dysfunction. 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 -Continue Plavix, Crestor -Symptomatic management with meclizine and Zofran as needed -Monitor for fever or other infectious signs #Constipation RESOLVED; pt admits to BM on 03/01; CTAP w/ moderate stool burden w/ mild ileus, this may have contributed to N/V -MiraLAX discontinued #Lactic acidosis RESOLVED; lactate 2.1 -> 1.6, resolved with gentle IVF in the ED. likely due to dehydration -Trend CBC #T2DM/Diabetic polyneuropathy - most recent A1c 6.6% -Hold metformin -Loose SSI ordered -Continue gabapentin 300 mg HS #Hypothyroidism TSH 3.3 in 01/2025 -Continue home Synthroid #Schizoaffective disorder no acute issues; multiple psychiatric medications may contribute to episodes of dizziness. -Continue clozapine 150 mg QAM and 350 mg HS, lamotrigine 200 mg BID, Seroquel 100 mg QAM and 300 mg HS #Hyperlipidemia no acute issues -Continue rosuvastatin 20 mg HS #GERD continue PPI DVT prophylaxis - SCDs, Lovenox Disposition- Med/Surg - awaiting safe disp PT/OT feel pt is safe to return to prior living arrangement Admission and Anticipated Discharge Date Admission Date: February 27, 2025 Subjective Pt was tearful this morning in bed, she notes that overnight she experienced three episodes of diarrhea. Pt states that she did not have MiraLAX on 03/02 because her bowels had started to move normally again. Pt states that she is overall feeling weak and unwell this morning. She admits to mild abdominal pain. Pt denies dizziness, cough, congestion, SOB, CP, Palpitations, and N/V. Review of Systems Review of Systems: All systems reviewed & are unremarkable except as noted in Subjective Physical Exam Physical Exam: General: Pt is a 64 y/o obese F tearful in bed. VS: reviewed - unremarkable Skin: Warm and dry; no lesions or ulcerations Respiratory: CTA bilat, no adventitious sounds noted. Chest expansion is full and symmetrical Cardio: RRR no murmurs Abdomen: Round, normoactive BS x4, no tenderness to palpation MSK: FROM of extremities, no deformities Extremities: no edema Neuro: A&Ox4, cooperative Results & Data Results & Data Vital Signs (Past 12 Hours) Vital Signs Temp Pulse Resp BP Pulse Ox O2 Del Method 03/03/25 07:03 97.9 F 74 16 113/71 94 Room Air 03/02/25 23:00 97.7 F 72 18 132/82 96 Room Air Laboratory Results Reviewed: CBC, BMP PG Care Time/CCT Total # of Minutes Spent Total Time Spent with Patient: Total time spent is greater than 50% in coordination of care (as documented) at patient's floor/unit and/or counseling patient: Coding Level of Care Code 73165 SUB INP/OBS CARE 2/35MIN Diagnoses Dizziness R42 Ambulatory dysfunction R26.2 History of cerebellar stroke Z86.73"
[2025-03-03] MEDS: LOPERAMIDE HCL 2 MG CAP PO PRN (14:26)
[2025-03-03] MEDS: PNEUMOCOCCAL VACCINE (PCV20) 20-VAL CONJ-DIP CRM/PF 0.5 ML SYR IM ONE (15:17)
[2025-03-03] MEDS: SODIUM CHLORIDE 0.9% 1,000 ML IV ONE (16:33)
[2025-03-04 06:56] LABS: Hematocrit (blood only) 29.5 % (37.0-47.0); Hemoglobin 9.5 g/dL (12.0-16.0); Mean Corpuscular Hemoglobin 30.8 pg (25.0-34.0); Mean Corpuscular Volume 95.8 fL (80.0-100.0); Platelet Count 200 K/uL (130-400); RDW Standard Deviation 50.7 fL (36.4-46.3); Red Blood Count 3.08 M/uL (4.20-5.40); White Blood Count 6.55 K/ul (4.8-10.8)
[2025-03-04 07:19] LABS: Anion Gap 7.0 (3-11); Blood Urea Nitrogen 13.0 mg/dl (6-23); Calcium 8.0 mg/dl (8.6-10.3); Carbon Dioxide 25.0 mmol/L (21-32); Chloride 108.0 mmol/L (98-107); Creatinine Clr Calc Pharmacy 76.0 ml/min; Glucose 119.0 mg/dl (70-99(Fasting)); Potassium 4.2 mmol/L (3.5-5.1); Sodium 140.0 mmol/L (136-145)
--- NOTE | 2025-03-04 13:24 | Hospitalist Progress Note ---
"Date of Service March 04, 2025 Assessment & Plan (1) Dizziness: (2) Ambulatory dysfunction: (3) History of cerebellar stroke: Plan Patient is a 64-year-old female with a past medical history including type II DM, hypothyroidism, schizoaffective disorder, HLD, GERD, recent right cerebellar CVA Dx 12/28/2024, vertigo. Patient presented via EMS due to persistent dizziness/vertigo throughout the day as well as 1 episode of vomiting. Patient was unable to get out of her chair and slept for most of the day. She is being admitted for symptomatic management of dizziness and to have PT/OT evals for ambulatory dysfunction. 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 - Continue Plavix, Crestor - Symptomatic management with meclizine and Zofran as needed #Constipation | Diarrhea initially with constipation, CT A/P with moderate stool burden and mild ileus. Provided with bowel regimen for constipation which was successful. Then patient developed diarrhea, likely from bowel regimen - Continue PRN Imodium #Lactic acidosis - Lactate 2.1 -> 1.6, resolved with gentle IVF in the ED #T2DM | Diabetic polyneuropathy - most recent A1c 6.6% - Hold metformin - Loose SSI ordered - Continue gabapentin 300 mg HS #Hypothyroidism TSH WNL in January 2025. Continue home Synthroid #Schizoaffective disorder no acute issues; multiple psychiatric medications may contribute to episodes of dizziness. - Continue clozapine 150 mg QAM and 350 mg HS, lamotrigine 200 mg BID, Seroquel 100 mg QAM and 300 mg HS #Hyperlipidemia - Continue rosuvastatin 20 mg HS #GERD continue PPI VTE PPX:SCDs, Lovenox Dispo: Medically stable. PT/OT cleared patient to return to prior living arrangement. Anticipate discharge tomorrow 03/05 when Farrah can coordinate transportation from the hospital. Admission and Anticipated Discharge Date Admission Date: February 27, 2025 Subjective Patient seen and evaluated at bedside. She reports feeling tired and wanting to nap. She denies any nausea, vomiting, diarrhea, constipation, or dizziness at this time. Allowed patient to rest. RN reports Farrah is doing well overall - doing more independently than before. No additional complaints or concerns at this time. Physical Exam Physical Exam: General: No acute distress, nondiaphoretic, well-developed, well-nourished. Class II obesity. Skin: Warm, dry. HEENT: Right monocular exotropia noted - baseline. Cardiac: Well-perfused. Rate in 80s. Pulm: Normal respiratory effort. 94% on room air. Neuro: A&O x3. No focal neurological deficits. Results & Data Results & Data Vital Signs (Past 12 Hours) Vital Signs Temp Pulse Resp BP Pulse Ox O2 Del Method 03/04/25 07:35 Room Air 03/04/25 07:18 98.4 F 80 16 127/81 94 Room Air Laboratory Results Reviewed CBC, BMP PG Care Time/CCT Total # of Minutes Spent Total Time Spent with Patient: Total time spent is greater than 50% in coordination of care (as documented) at patient's floor/unit and/or counseling patient: Coding Level of Care Code 70188 SUB INP/OBS CARE 2/35MIN Diagnoses Dizziness R42 Ambulatory dysfunction R26.2 History of cerebellar stroke Z86.73"
[2025-03-04 15:58] VITALS: PULSE 77
[2025-03-05 08:52] VITALS: BP 123/82; RESP 22; TEMP 97.9; O2SAT 100
--- NOTE | 2025-03-05 09:51 | Discharge Summary ---
"Discharge Summary Date of Service March 05, 2025 Principal Dx & Hospital Course #1 = Principal Diagnosis (1) Dizziness: (2) Ambulatory dysfunction: (3) History of cerebellar stroke: Plan Patient is a 64-year-old female with a past medical history including type II DM, hypothyroidism, schizoaffective disorder, HLD, GERD, recent right cerebellar CVA Dx 12/28/2024, vertigo. Patient presented via EMS due to persistent dizzines s/vertigo throughout the day as well as 1 episode of vomiting. Patient was unable to get out of her chair and slept for most of the day. She is being admitted for symptomatic management of dizziness and to have PT/OT evals for ambulatory dysfunction. #Dizziness | Hx Cerebellar CVA | Nausea/Vomiting BioFire in ED negative; Head/Neck CTA negative for acute changes; Brain MRI 02/28 negative for acute changes; Pt admits to several episodes of N/V [employer] and notes that she was around a home health aide who was sick about 1wk [employer]. - Continue Plavix, Crestor - Symptomatic management with meclizine and Zofran as needed #Constipation | Diarrhea initially with constipation, CT A/P with moderate stool burden and mild ileus. Provided with bowel regimen for constipation which was successful. Then patient developed diarrhea, likely from bowel regimen - Continue PRN Imodium #Lactic acidosis - Lactate 2.1 -> 1.6, resolved with gentle IVF in the ED #T2DM | Diabetic polyneuropathy - most recent A1c 6.6% - Hold metformin - Loose SSI ordered - Continue gabapentin 300 mg HS #Hypothyroidism TSH WNL in January 2025. Continue home Synthroid #Schizoaffective disorder no acute issues; multiple psychiatric medications may contribute to episodes of dizziness. - Continue clozapine 150 mg QAM and 350 mg HS, lamotrigine 200 mg BID, Seroquel 100 mg QAM and 300 mg HS #Hyperlipidemia - Continue rosuvastatin 20 mg HS #GERD continue PPI VTE PPX:SCDs, Lovenox Dispo: Discharged home to return to prior living arrangement 03/05 Notes For Next Care Provider Medication Changes From Visit No changes to home medication regimen. Encouraged patient to use OTC Imodium as needed for diarrhea. Admission HPI Per Admitting Provider Chief Complaint: dizziness Primary Care Provider: Hillary Clarke MD Patient is a 64-year-old female with a past medical history including type II DM, hypothyroidism, schizoaffective disorder, HLD, GERD, recent cerebellar CVA Dx 12/28/2024. Patient presented via EMS due to persistent dizziness/vertigo throughout the day as well as 1 episode of vomiting. Patient was unable to get out of her chair and slept for most of the day. She is being admitted for symptomatic management of dizziness and to have PT/OT evals for ambulatory dysfunction. Patient seen at bedside. She stated she woke up today and felt like the room was spinning which was similar to her presentation with recent CVA and she is worried she had another stroke. She also vomited 1 time when she tried to get up and eat which did not happen last time. She does endorse intermittent diffuse abdominal pain however feels as though she is constipated. She did take meclizine at home which helped with the dizziness and typically helps her. She did not take anything for the constipation. She stated she also slept all day which is very unlike her and she was unable to get out of her lift chair. She does endorse some rhinorrhea however denies any other flulike symptoms such as cough, shortness of breath, ear pain, sore throat. She also endorses burning with urination however was recently treated for UTI 7 days ago with Keflex which she finished the course of. UA is unremarkable in the ED. She denies any chest pain, shortness of breath, current abdominal pain, facial droop, slurred speech. She does endorse bilateral lower and upper extremity numbness and tingling which is baseline for her with her neuropathy. She denies any nicotine use. She is due for her evening medications. When discussing CODE STATUS patient felt very unsure of what her wishes would be and would like time to think about it however would like to be full code for now. She is going to discuss with her friends and update us in the future. Patient was recently admitted from 12/28 to 12/31 due to dizziness found to have a small acute right cerebellar CVA and was started on Plavix and aspirin x 3 weeks then transition to Plavix alone and Crestor. Patient reports that she has been on both Plavix and aspirin since then. She was discharged to [facility] and then home. Discharge Exam General: No acute distress, nondiaphoretic, well-developed, well-nourished. Class II obesity. Skin: Warm, dry. HEENT: Right monocular exotropia noted - baseline. Cardiac: Well-perfused. Rate in 70s. Pulm: Normal respiratory effort. 100% on room air. Abdominal: Soft, nontender, nondistended. Bowel sounds present. Neuro: A&O x3. No focal neurological deficits. Discharge Plan Discharge Items Patient Disposition: Home - Home Health Services Reason For Visit: DIZZINESS, AMBULATORY DYSFUNCTION Discharge Diagnosis: Dizziness Condition on Discharge: Good Activity: Resume your previous activity Non-emergency contact: Primary Care Provider Call non-emergency contact if: you have any medication questions and your symptoms worsen Follow-up/Referrals: Hillary Clarke MD [Primary Care Provider] - (Follow-up in 1-2 weeks) Diet: Carb Consistent or DM2 Addtl Attending Provider Instructions: Farrah, You were admitted to the hospital with dizziness. Your imaging did not reveal any acute processes to explain your dizziness. You received supportive care including IV fluids, meclizine for dizziness, and Zofran for nausea. You were evaluated by physical and Occupational Therapy who deemed it is safe for you to return to your previous living arrangements. Upon discharge from the hospital: * Continue your home medications as prescribed. There have not been any changes made to your usual home medication regimen. * You can take Imodium 2 mg every 4 hours as needed for diarrhea. Do not take more than 16 mg in a 24 hour period. This is available ozht-rce-tnlyljo (OTC), so no prescription is needed. * Continue your normal activities. Take a rest break if you feel tired or begin feeling dizzy. * Follow-up with your PCP in 1-2 weeks. Please return to the hospital if you experience any of the following: Chest pain, difficulty breathing, inability to tolerate oral intake, dizziness that does not resolve with meclizine, passing out, new or worsening confusion, or any other symptoms concerning for you. It was a pleasure taking care of you while you were in the hospital! Pending Studies at Discharge: No Stand-Alone Forms: [facility], Smoking Cessation Medications and DC Order Prescriptions: Continued lamotrigine [Lamictal] 200 mg tablet 200 mg PO BID cholecalciferol (vitamin D3) 25 mcg (1,000 unit) tablet 25 mcg PO BID 90 Days Qty: 180 3RF (DME) blood-glucose meter [OneTouch Ultra2 Meter] Misc See Rx Instructions .Route Qty: 1 0RF Rx Instructions: As directed (DME) OneTouch Ultra Test Strip See Rx Instructions .Route Qty: 100 3RF Rx Instructions: check bsg once daily (DME) lancets [OneTouch UltraSoft 2 Lancet] [facility] See Rx Instructions .Route Qty: 100 3RF Rx Instructions: check once daily aspirin [Enteric Coated Aspirin] 81 mg tablet,delayed release (DR/EC) 81 mg PO QAM Qty: 90 3RF levothyroxine 150 mcg tablet 150 mcg PO QAM Qty: 90 3RF rosuvastatin 20 mg tablet 20 mg PO HS Qty: 90 2RF acetaminophen 325 mg tablet 650 mg PO Q8 MDD 3000mg PRN (Reason: pain) Qty: 240 5RF gabapentin [Neurontin] 300 mg capsule 300 mg PO HS Qty: 30 0RF meclizine 12.5 mg tablet 25 mg PO TID PRN (Reason: dizziness) Qty: 168 3RF folic acid 1 mg tablet 1 mg PO QAM Qty: 30 6RF cyanocobalamin (vitamin B-12) 500 mcg tablet 500 mcg PO QAM Qty: 30 6RF omeprazole 20 mg capsule,delayed release(DR/EC) 40 mg PO QAM 30 Days Qty: 60 2RF metformin 500 mg tablet extended release 24 hr 1,000 mg PO QAM Qty: 120 2RF quetiapine [Seroquel] 300 mg tablet 300 mg PO HS (DME) [facility] See Rx Instructions .Route Qty: 1 0RF Rx Instructions: As directed (DME) lancets [OneTouch Delica Plus Lancet] [facility] See Rx Instructions .Route Qty: 100 0RF Rx Instructions: As directed (DME) Bedside Commode Misc See Rx Instructions .Route Qty: 1 0RF Rx Instructions: As directed (DME) Hospital Bed Homecare Misc See Rx Instructions .Route Qty: 1 0RF Rx Instructions: As directed clozapine 100 mg Tablet 300 mg PO HS Rx Instructions: Take 1 tablet every morning and 3 tablets at bedtime quetiapine 100 mg Tablet 100 mg PO QAM clozapine 100 mg tablet 100 mg PO QAM clozapine 50 mg tablet 50 mg PO AMHS clopidogrel 75 mg tablet 75 mg PO QAM ferrous sulfate [Iron (ferrous sulfate)] 325 mg (65 mg iron) tablet 325 mg PO QAM Discharge Orders: Discharge Order (Routine); Ordered 03/05/25 Ordered By: Deborah Mills Admission Data Admit Date/Time: 02/27/25 21:55 Attending Provider: Deandre Judge Admit Provider: Jennifer Stoll Primary Care Provider: Hillary Clarke Other Providers: Jennifer Stoll Hospital Stay Data Consultations 02/27/25 21:10 ED Decision to Admit Stat Diagnostic Imagining Performed Abdomen/Pelvis CT 02/27/25 17:55 Exam(s): CT ABDOMEN + PELVIS With Contrast IV Amt: 119ml opitray 320 EXAM: CT Abdomen and Pelvis With Intravenous Contrast CLINICAL HISTORY: dizziness, emesis, abd pain. TECHNIQUE: Axial computed tomography images of the abdomen and pelvis with intravenous contrast. CTDI is 27.95 mGy and DLP is 1433.84 mGy-cm. Automated exposure control was utilized for the study. A dose lowering technique was utilized adhering to the principles of ALARA. CONTRAST: Patient received 119ml Optiray 320 of IV contrast COMPARISON: CT Abdomen Pelvis dated 10/14/2023 FINDINGS: Lung bases: Similar curvilinear changes in both lower lobes. No consolidation. ABDOMEN: Liver: Normal. No mass. Gallbladder and bile ducts: Normal. No calcified stones. No ductal dilation. Pancreas: Normal. No mass. No ductal dilation. Spleen: Normal. No splenomegaly. Adrenals: Normal. No mass. Kidneys and ureters: Normal. No solid mass. No hydronephrosis. Stomach and bowel: The stomach is aqsn-pt-uoarjsfltn distended with retained oral contents and fluid. No gastric mucosal thickening. There are multiple fluid distended small bowel loops throughout the central abdomen and pelvis, measuring up to 4 cm in diameter. No obvious transition point identified; however, there is asymmetric decompression of the distal small bowel in the right lower quadrant. Moderate stool burden. No diverticulitis. PELVIS: Appendix: The appendix is not clearly delineated. Bladder: Normal. No mass. Reproductive: Unremarkable as visualized. ABDOMEN and PELVIS: Intraperitoneal space: Normal. No free air. No significant fluid collection. Bones/joints: No acute fracture. No dislocation. Soft tissues: Normal. Vasculature: Normal. No abdominal aortic aneurysm. Lymph nodes: Normal. No enlarged lymph nodes. IMPRESSION: 1. There are multiple fluid distended small bowel loops throughout the central abdomen and pelvis, measuring up to 4 cm in diameter. No obvious transition point identified; however, there is asymmetric decompression of the distal small bowel in the right lower quadrant. Favor enteritis; however, if there is high clinical index of suspicion for developing small bowel obstruction, serial radiographic evaluation or small-bowel follow-through should provide additional information. 2. Moderate stool burden. No diverticulitis. No free intraperitoneal fluid or pneumoperitoneum. Electronically signed by: Reynaldo George MD 02/27/25 20:55 PM Chest X-Ray 02/27/25 17:55 EXAM: Portable AP chest radiograph TECHNIQUE: AP portable radiograph of the chest was obtained. INDICATION: Shortness of breath Comparison: Chest radiograph February 20, 2024 FINDINGS: LINES and TUBES: None CARDIOVASCULAR: Cardiac silhouette is stable enlarged in size. LUNGS/PLEURA: No focal consolidation identified. Chronic interstitial lung changes. Bibasilar densities are likely atelectasis though difficult to exclude mild airspace disease. No significant pleural fluid. No discernible pneumothorax. OSSEOUS/OTHER: No displaced acute osseous process identified. IMPRESSION: Bibasilar densities are likely atelectasis though difficult to exclude mild airspace disease. Electronically signed by Hitesh Chang 02-27-2025 9:11 PM Head CTA 02/27/25 17:55 Exam(s): CTA HEAD W/WO Contrast IV Amt: 119ml opitray 320 EXAM: CT Angiography Head Without and With Intravenous Contrast CLINICAL HISTORY: dizziness. TECHNIQUE: Axial computed tomographic angiography images of the head without and with intravenous contrast. CTDI is 52.48 mGy and DLP is 1136.55 mGy-cm. Automated exposure control was utilized for the study. A dose lowering technique was utilized adhering to the principles of ALARA. MIP reconstructed images were created and reviewed. CONTRAST: Patient received 119ml Optiray 320 of IV contrast COMPARISON: CTA head 02/27/2025 FINDINGS: VASCULATURE: Right internal carotid artery: No acute findings. Intracranial segment is patent with no significant stenosis. No aneurysm. Right anterior cerebral artery: Normal. No occlusion or significant stenosis. No aneurysm. Right middle cerebral artery: Normal. No occlusion or significant stenosis. No aneurysm. Right posterior cerebral artery: Normal. No occlusion or significant stenosis. No aneurysm. Right vertebral artery: Unremarkable as visualized. Left internal carotid artery: No acute findings. Intracranial segment is patent with no significant stenosis. No aneurysm. Left anterior cerebral artery: Normal. No occlusion or significant stenosis. No aneurysm. Left middle cerebral artery: Normal. No occlusion or significant stenosis. No aneurysm. Left posterior cerebral artery: Normal. No occlusion or significant stenosis. No aneurysm. Left vertebral artery: Unremarkable as visualized. Basilar artery: Normal. No occlusion or significant stenosis. No aneurysm. HEAD: Brain: No intracranial hemorrhage. No significant mass effect. No cortical infarct. No abnormal parenchymal enhancement. Ventricles: Normal. No ventriculomegaly. Bones/joints: No acute fracture. Soft tissues: Normal. Sinuses: Unremarkable as visualized. No acute sinusitis. Mastoid air cells: Unremarkable as visualized. No mastoid effusion. IMPRESSION: 1. Precontrast imaging demonstrates no intracranial hemorrhage, mass effect or midline shift. No cortical infarct. 2. Negative intracranial CTA examination. No significant alteration from the prior examination. Electronically signed by: Reynaldo George MD 02/27/25 20:59 PM Neck CTA 02/27/25 17:55 Exam(s): CTA NECK With Contrast IV Amt: 119ml opitray 320 EXAM: CT Angiography Neck With Intravenous Contrast CLINICAL HISTORY: dizziness. TECHNIQUE: Routine carotid CT angiography protocol was performed with intravenous contrast. NASCET criteria using the distal ICAs for comparison were used for evaluation of stenoses. CTDI is 29.69 mGy and DLP is 519.41 mGy-cm. Automated exposure control was utilized for the study. A dose lowering technique was utilized adhering to the principles of ALARA. MIP reconstructed images were created and reviewed. CONTRAST: Patient received 119ml Optiray 320 of IV contrast COMPARISON: CTA neck 02/21/2024 FINDINGS: VASCULATURE: Right common carotid artery: Normal. No occlusion or significant stenosis. No dissection. Right internal carotid artery: The right internal carotid artery is tortuous but is patent. Extracranial segment is patent with no occlusion or significant stenosis. No dissection. Right external carotid artery: Normal. No occlusion. Right vertebral artery: Normal. No occlusion or significant stenosis. No dissection. Left common carotid artery: The left common carotid artery is patent. Left internal carotid artery: The left mid to distal internal carotid artery is tortuous but is patent. Extracranial segment is patent with no occlusion or significant stenosis. No dissection. Left external carotid artery: Normal. No occlusion. Left vertebral artery: Normal. No occlusion or significant stenosis. No dissection. Brachiocephalic and subclavian arteries: The ostia of the brachiocephalic and left common carotid artery are not included. The left subclavian origin is maintained. Aorta: The aortic arch is predominantly excluded from the field-of- view. NECK: Bones/joints: Normal. No acute fracture. Soft tissues: Normal. Lung apices: Clear. CAROTID STENOSIS REFERENCE USING NASCET CRITERIA: % ICA stenosis = (1 - narrowest ICA diameter/diameter of distal cervical ICA) x 100. Mild - <50% stenosis. Moderate - 50-69% stenosis. Severe - 70-94% stenosis. Near occlusion - 95-99% stenosis. Occluded - 100% stenosis. IMPRESSION: Negative cervical CTA examination. No significant alteration from the prior examination. Electronically signed by: Reynaldo George MD 02/27/25 21:01 PM Brain MRI 02/28/25 07:28 MRI BRAIN WITH and WITHOUT CONTRAST TECHNIQUE: An MRI examination of the brain was performed utilizing sagittal and axial T1-weighted images as well as axial T2-weighted, FLAIR, gradient echo and diffusion-weighted images. Postcontrast T1-weighted images were also acquired in axial and sagittal planes. IV CONTRAST: 7 mL of Gadavist was intravenously administered. INDICATION: Dizziness COMPARISON: Brain CT February 20, 2024 FINDINGS: The ventricular, sulcal and cisternal spaces are normal in caliber. There is no evidence of intracranial mass lesion, hydrocephalus, infarct, extra-axial fluid collection, restricted diffusion or parenchymal hemorrhage. Age-related involutional changes of brain chronic white matter ischemic changes. There is no suspicious parenchymal or extra-axial enhancement. The cerebellar tonsils are normal in position. The pituitary gland is not enlarged. The major arterial vascular structures of the skull base are patent. No intraorbital soft tissue mass lesion is observed. The visualized paranasal sinuses are aerated. IMPRESSION: No acute intracranial process or suspicious intracranial enhancement is identified. Chronic findings as above Electronically signed by Hitesh Chang 02-28-2025 5:43 PM Pending Results Patient Have Any Pending Studies at Discharge: No Discharge Instructions Given to Patient (Per Discharging Provider) Farrah, You were admitted to the hospital with dizziness. Your imaging did not reveal any acute processes to explain your dizziness. You received supportive care including IV fluids, meclizine for dizziness, and Zofran for nausea. You were evaluated by physical and Occupational Therapy who deemed it is safe for you to return to your previous living arrangements. Upon discharge from the hospital: * Continue your home medications as prescribed. There have not been any changes made to your usual home medication regimen. * You can take Imodium 2 mg every 4 hours as needed for diarrhea. Do not take more than 16 mg in a 24 hour period. This is available yazk-xmj-qffrium (OTC), so no prescription is needed. * Continue your normal activities. Take a rest break if you feel tired or begin feeling dizzy. * Follow-up with your PCP in 1-2 weeks. Please return to the hospital if you experience any of the following: Chest pain, difficulty breathing, inability to tolerate oral intake, dizziness that does not resolve with meclizine, passing out, new or worsening confusion, or any other symptoms concerning for you. It was a pleasure taking care of you while you were in the hospital! Total Time Total Time Spent Total Time Spent (In Minutes): Greater than 30 minutes spent completing this discharge process including direct patient care, medication reconciliation, documentation, review of labs and images, and coordination of care. Coding Level of Care Code 71904 INP/OBS DISCH >30 MIN Diagnoses Dizziness R42 Ambulatory dysfunction R26.2 History of cerebellar stroke Z86.73"
== END 2025-03-05 15:04 | disposition home or self-care (01) | DRG 149 ==
LOC: SUATTDRO → ED 17:35 → SUATTDRO 21:55 → 3W 21:55

== ENCOUNTER 2025-04-03 11:21 | Observation (INO) ==
--- NOTE | 2025-04-03 12:56 | XRay Report ---
XR pelvis 1-2V routine CLINICAL HISTORY: injury alert, fall COMPARISON: 01/09/2024 FINDINGS: Exam is mildly limited by overlying artifact. No fracture or dislocation seen. IMPRESSION: No fracture seen. ACT 112: Negative or not required by law. Electronically signed by: Renato Gill M.D. 04/03/2025 12:54 PM
--- NOTE | 2025-04-03 12:57 | XRay Report ---
XR chest 1V portable CLINICAL HISTORY: injury alert, fall COMPARISON STUDY: 03/06/2025 FINDINGS: Stable cardiomegaly without pulmonary vascular congestion. Stable reticular opacity at the left lung base. No consolidation or pleural effusion. No pneumothorax. No grossly displaced rib fract ure seen. IMPRESSION: No acute findings. ACT 112: Negative or not required by law. Electronically signed by: Renato Gill M.D. 04/03/2025 12:55 PM
--- NOTE | 2025-04-03 12:59 | CT Scan Report ---
CT head/brain wo con CLINICAL HISTORY: fall, on plavix. TECHNIQUE: Multiple axial CT images of the head were obtained without contrast. A dose lowering tech nique was utilized adhering to the principles of ALARA. COMPARISON: 03/06/2025 FINDINGS: No intracranial hemorrhage seen. No mass effect, midline shift, or hydrocephalus. There is mild mucosal thickening in the maxillary sinuses. No skull fracture seen. IMPRESSION: No acute findings. ACT 112: Negative or not required by law. The above report was generated using voice recognition software. It may contain grammatical, syntax o r spelling errors. Electronically signed by: Renato Gill M.D. 04/03/2025 12:57 PM
--- NOTE | 2025-04-03 13:01 | CT Scan Report ---
CT cervical spine wo con CT DOSE: 1305.91 mGy.cm CLINICAL HISTORY: Neck pain, fall. COMPARISON: 03/06/2025 TECHNIQUE: Multiple axial CT images of the cervical spine were obtained without contrast. A dose low ering technique was utilized adhering to the principles of ALARA. FINDINGS: There are moderate diffuse degenerative changes. No cervical spine fracture or subluxation seen. IMPRESSION: No cervical spine fracture seen. ACT 112: Negative or not required by law. The above report was generated using voice recognition software. It may contain grammatical, syntax o r spelling errors. Electronically signed by: Renato Gill M.D. 04/03/2025 1:00 PM
[2025-04-03 13:44] LABS: Hematocrit (blood only) 30.8 % (37.0-47.0); Hemoglobin 9.8 g/dL (12.0-16.0); Immature Granulocytes # (auto) 0.07 K/uL (0.01-0.20); Immature Granulocytes % (auto) 1.4 %; Mean Corpuscular Hemoglobin 30.5 pg (25.0-34.0); Mean Corpuscular Volume 96.0 fL (80.0-100.0); Platelet Count 234 K/uL (130-400); RDW Standard Deviation 51.9 fL (36.4-46.3); Red Blood Count 3.21 M/uL (4.20-5.40); White Blood Count 5.05 K/ul (4.8-10.8)
[2025-04-03 13:52] LABS: Alanine Aminotransferase 11.0 U/L (7-52); Albumin Globulin Ratio 2.1 (0.9-2); Albumin Level 4.4 gm/dl (3.4-5.0); Alkaline Phosphatase 79.0 U/L (34-104); Anion Gap 12.0 (3-11); Bilirubin,Total 0.3 mg/dl (0.2-1.0); Blood Urea Nitrogen 14.0 mg/dl (6-23); Calcium 9.0 mg/dl (8.6-10.3); Carbon Dioxide 23.0 mmol/L (21-32); Chloride 104.0 mmol/L (98-107); Creatine Kinase 381.0 U/L (26-192); Creatinine Clr Calc Pharmacy 73.2 ml/min; Globulin 2.1 gm/dl (2.5-4.0); Glucose 183.0 mg/dl (70-99(Fasting)); Potassium 4.4 mmol/L (3.5-5.1); Sodium 139.0 mmol/L (136-145); Total Protein 6.5 gm/dl (6.0-8.3)
--- NOTE | 2025-04-03 14:57 | Emergency Department Note ---
Impression & Plan Fall, Weakness ED Provider Note NAME: PAMELA HERRERA AGE: 64 SEX: F : 1960 ARRIVES VIA: Ambulance INFORMANT: Patient, ED PROVIDER(S): Yang Najera MD CHIEF COMPLAINT: Fall HPI: This is 64-year-old female senting for a fall. Patient states that she was walking between the bathroom in her room when she had fallen after tripping. She fell forward. She struck her head. She did not lose consciousness. She states he may have been down for about 5 hours. She reports pain to her head, neck. She reports no nausea or vomiting. She states she was in the apartment. She states she feels safe at home. ROS: See above HPI for pertinent positives & negatives. A total of 10 systems reviewed and were otherwise negative. PAST MEDICAL HISTORY: See Below PAST SURGICAL HISTORY: See Below FAMILY HISTORY: See Below SOCIAL HISTORY: See Below HOME MEDICATIONS: See Below ALLERGIES: See Below VITALS: See Below PHYSICAL EXAMINATION: Primary Survey Airway: Intact Breathing: Normal, breath sounds equal bilaterally Circulation: Skin warm, distal pulses 2+ Disability Pupils: Equal and reactive to light GCS: 15, Motor Function: Moves all extremities. Sensory: No deficits Secondary Survey GEN: Well developed and well-nourished HEAD: Normal cephalic atraumatic EYES: Pupils round reactive to light, conjunctiva clear, extraocular movements intact, no raccoons eyes ENT: no zendejas's sign, nares patent, oropharynx clear NECK: No JVD, midline trachea, C-collar in place HEART: Regular rate and rhythm LUNGS: Clear to auscultation bilaterally. CHEST: Chest wall non-tender, no bruising/deformity ABD: soft, non-tender, no rebound or guarding, PELVIS: Stable to rock EXT: 2+ global pulses, moving all extremities well, +5/5 muscle strength globally NEURO: CNII-XII grossly intact, no sensory deficits MEDICAL DECISION MAKING: This is a 64-year-old female presenting after a fall. She appears clinically well, will do traumatic workup as well as blood work due to prolonged downtime. - Bloodwork is reviewed showing no significant leukocytosis, anemia, electrolyte or creatinine abnormality. - CT imaging of the head and C-spine are currently negative for traumatic injury. Chest Xray independently interpreted by me showing no pneumothorax, focal opacity, or pleural effusions. Pelvic x-ray negative for acute osseous fracture or dislocation by my independent interpretation fracture - Patient initially discharged however she states she feels uncomfortable going home as she is unstable on her feet or safe at home. -Carediscussed with Dr. Altamirano for admission Differential diagnosis: [Intracranial hemorrhage, cervical spine fracture, failure to thrive, amatory dysfunction Diagnostics interpreted by me: ECG: ECG independently interpreted by me with normal sinus rhythm, rate of 85, normal SC, normal QRS, normal QTc, no ST segment elevations consistent with STEMI criteria Cardiac Monitoring: An order was placed for continuous cardiac monitoring. The monitor shows a rate of 79 with sinus rhythm. Past Med/Surg History Problem List (Updated 04/03/25 @ 15:41 by Yang Najera MD) Fall (Acute) Diabetic polyneuropathy Polypharmacy Constipation Ambulatory dysfunction (Acute) Acute generalized abdominal pain (Acute) Emesis (Acute) History of cerebellar stroke (Acute) Dizziness (Acute) Risk for falls Cerebellar stroke, acute Weakness (Acute) Diabetes mellitus type 2, controlled Generalized weakness Lightheadedness Venous stasis dermatitis of both lower extremities (Acute) Low T4 (Acute) Fall (Acute) Anemia (Acute) Dizziness (Acute) Urine incontinence Tremor Esophageal dysmotility Abnormal CT scan, chest Bed sore Knee pain Hypoglycemia Folate deficiency Orthostatic hypotension Weakness (Acute) Vitamin B12 deficiency Fall (Acute) Severe morning sleep inertia Multiple pulmonary nodules determined by computed tomography of lung Anemia (Acute) Schizoaffective disorder (Chronic) Neuropathic pain Enuresis, nocturnal only Iron deficiency anemia Osteoarthritis of right knee Drug-induced parkinsonism Vitamin D deficiency Bilateral lumbar radiculopathy (Acute) Cataract (Acute) Gait instability (Acute) Hypertension (Acute) 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 Hypothyroidism Hyperlipidemia Dizziness (Chronic) Medical History AMS (altered mental status) Calf swelling Schizoaffective disorder Multiple pulmonary nodules pt unsure [place] Hypothyroidism HTN (hypertension) Hyperlipidemia Drug-induced parkinsonism pt unsure - sometimes has tremors Dizziness Type 2 diabetes mellitus Cataract Bilateral Anemia Pneumonia Currently on 3x antibiotics for 10 days - Thee - pt denies symptoms "was just found on CT scan" Anxiety Poor historian Hx of diverticulitis of colon History of colon polyps Brain TIA unsure "2019 maybe, not sure" Depression Frequent falls most recent 01/09/24 [facility] Chronic back pain GERD (gastroesophageal reflux disease) Asthma inhaler prn Constipation Surgical History History of removal of cyst History of colonoscopy History of tooth extraction History of tonsillectomy and adenoidectomy Family History Grandmother (Paternal) Diabetes Grandmother (Maternal) Diabetes Mother Anemia Bipolar disorder Cardiomyopathy Coronary heart disease Father Diabetes FH: kidney cancer Other No family history of adverse response to anesthesia Parkinson disease Parkinsonian syndrome Social History Smoking Status: Never smoker Second Hand Exposure: No; Do You Dip or Chew Tobacco: No; Hx Alcohol Use: No Hx Substance Use: No Preferred Language: Singaporean Communication Ability: Effective Visual Impairment: No Limitations Hearing Ability: Normal Android Programmer Required: No Beliefs That Will Affect Care: None marital status: Single Current Living Situation: Alone Current Living Situation Comment: Lives alone in a seven floor apartment Feels Safe at Home: Yes Gender Identity: Female Assistive Devices: Bedside Commode and Walker Allergies Allergies Allergy/AdvReac Type Severity Reaction Status Date / Time lithium Allergy Unknown Unknown Verified 03/29/25 10:44 escitalopram AdvReac Severe Manic Verified 03/29/25 10:44 haloperidol AdvReac Intermediate dystonia Verified 03/29/25 10:44 Penicillins AdvReac Intermediate Gastrointestinal Verified 03/29/25 10:44 Upset valproic acid AdvReac Intermediate Leg Verified 03/29/25 10:44 Swelling Home Meds Home Medications Medication Instructions Recorded Confirmed ferrous sulfate 325 mg (65 mg 325 mg PO QAM 02/27/25 04/03/25 iron) tablet (Iron (ferrous sulfate)) Previous Rx's Medication Instructions Recorded cholecalciferol (vitamin D3) 25 25 mcg PO BID 90 days #180 tabs 02/07/24 mcg (1,000 unit) tablet blood-glucose meter (OneTouch #1 ea 03/27/24 Ultra2 Meter) blood sugar diagnostic (OneTouch #100 ea 03/29/24 Ultra Test strips) lancets 30 gauge (OneTouch #100 ea 04/14/24 UltraSoft 2 Lancet) aspirin 81 mg tablet,delayed 81 mg PO QAM #90 tabs 04/15/24 release (Enteric Coated Aspirin) lancets 33 gauge (DavidTouch Delica #100 ea 10/13/24 Plus Lancet) miscellaneous medical supply #1 ea 10/13/24 (Blood Pressure Cuff) acetaminophen 325 mg tablet 650 mg (2 x 325 mg) PO Q8 PRN pain 12/18/24 #240 tabs gabapentin 300 mg capsule 300 mg PO HS #30 caps 12/22/24 (Neurontin) cyanocobalamin (vitamin B-12) 500 500 mcg PO QAM #30 tabs 12/23/24 mcg tablet folic acid 1 mg tablet 1 mg PO QAM #30 tabs 12/23/24 metformin 500 mg tablet,extended 1,000 mg (2 x 500 mg) PO QAM #120 12/29/24 release 24 hr tabs omeprazole 20 mg capsule,delayed 40 mg (2 x 20 mg) PO QAM 30 days 12/29/24 release #60 caps Bedside Commode #1 ea 01/12/25 Hospital Bed Homecare #1 ea 01/12/25 levothyroxine 175 mcg tablet 175 mcg PO DAILY #30 tabs 03/10/25 (Synthroid) rosuvastatin 20 mg tablet 20 mg PO HS #90 tabs 03/11/25 Results & Data (ED) Vital Signs Vital Signs - 24 hr 04/03/25 11:25 04/03/25 11:25 04/03/25 12:17 Temperature 36.4 C L 36.4 C L Temperature Source Oral Oral Pulse Rate 84 Pulse Rate [Apical] 84 81 Pulse Rhythm Regular Pulse Rhythm [Apical] Regular Regular Pulse Strength Normal Pulse Strength [Apical] Normal Normal Respiratory Rate 20 20 20 Respiratory Effort / Characteristics Non-Labored Spontaneous Non-Labored Spontaneous Non-Labored Spontaneous Respiratory Depth Normal Normal Normal Respiratory Pattern Regular Regular Regular Blood Pressure 119/78 Blood Pressure [Right Arm] 119/78 150/98 H Blood Pressure Mean 91 Blood Pressure Mean [Right Arm] 91 115 Blood Pressure Position Lying Pulse Oximetry 99 99 99 Oxygen Delivery Method Room Air Room Air Room Air Sepsis Recent Fever Within 48 Hours No Sepsis New/Unexplained Change in Mental Status No Sepsis Action Taken by Nursing No Action Required 04/03/25 13:00 04/03/25 14:00 04/03/25 14:08 Temperature Temperature Source Pulse Rate 77 Pulse Rate [Apical] 81 80 Pulse Rhythm Pulse Rhythm [Apical] Regular Regular Pulse Strength Pulse Strength [Apical] Normal Respiratory Rate 12 18 Respiratory Effort / Characteristics Non-Labored Spontaneous Non-Labored Respiratory Depth Normal Normal Respiratory Pattern Regular Blood Pressure Blood Pressure [Right Arm] 161/92 H 144/92 H Blood Pressure Mean Blood Pressure Mean [Right Arm] 115 109 Blood Pressure Position Pulse Oximetry 96 99 Oxygen Delivery Method Room Air Room Air Sepsis Recent Fever Within 48 Hours Sepsis New/Unexplained Change in Mental Status Sepsis Action Taken by Nursing 04/03/25 15:00 04/03/25 16:06 Temperature 36.5 C Temperature Source Oral Pulse Rate 78 Pulse Rate [Apical] 79 Pulse Rhythm Pulse Rhythm [Apical] Regular Pulse Strength Pulse Strength [Apical] Normal Respiratory Rate 14 16 Respiratory Effort / Characteristics Non-Labored Respiratory Depth Normal Respiratory Pattern Blood Pressure 149/98 H Blood Pressure [Right Arm] 163/99 H Blood Pressure Mean Blood Pressure Mean [Right Arm] 120 Blood Pressure Position Pulse Oximetry 98 99 Oxygen Delivery Method Room Air Room Air Sepsis Recent Fever Within 48 Hours Sepsis New/Unexplained Change in Mental Status Sepsis Action Taken by Nursing Laboratory Data 04/03/25 11:35 04/03/25 11:35 Lab Results 04/03/25 04/03/25 Range/Units 11:35 14:45 WBC 5.05 (4.8-10.8) K/ul RBC 3.21 L (4.20-5.40) M/uL Hgb 9.8 L (12.0-16.0) g/dL Hct 30.8 L (37.0-47.0) % MCV 96.0 (80.0-100.0) fL MCH 30.5 (25.0-34.0) pg MCHC 31.8 L (32.0-36.0) g/dL RDW Std Deviation 51.9 H (36.4-46.3) fL RDW Coeff of Radha 14.8 H (11.5-14.5) % Plt Count 234 (130-400) K/uL MPV 9.1 L (9.4-12.4) fL Immature Gran % (Auto) 1.4 % Neut % (Auto) 75.2 % Lymph % (Auto) 14.7 % [place] % (Auto) 6.3 % Eos % (Auto) 1.8 % Baso % (Auto) 0.6 % Neut # (Auto) 3.80 (1.40-6.50) K/uL Lymph # (Auto) 0.74 L (1.20-3.40) K/uL [place] # (Auto) 0.32 (0.11-0.59) K/uL Eos # (Auto) 0.09 (0.00-0.50) K/uL Baso # (Auto) 0.03 (0.00-0.20) K/uL Immature Gran # (Auto) 0.07 (0.01-0.20) K/uL Sodium 139 (136-145) mmol/L Potassium 4.4 (3.5-5.1) mmol/L Chloride 104 (98-107) mmol/L Carbon Dioxide 23 (21-32) mmol/L Anion Gap 12 H (3-11) BUN 14 (6-23) mg/dl Creatinine 0.91 (0.6-1.2) mg/dl Est Cr Clr Drug Dosing 73.2 ml/min eGFR 70.45 BUN/Creatinine Ratio 15.4 (10-20) Glucose 183 H (70-99(Fasting)) mg/dl Calcium 9.0 (8.6-10.3) mg/dl Total Bilirubin 0.3 (0.2-1.0) mg/dl AST 14 (13-39) U/L ALT 11 (7-52) U/L Alkaline Phosphatase 79 (34-104) U/L Total Creatine Kinase 381 H (26-192) U/L Total Protein 6.5 (6.0-8.3) gm/dl Albumin 4.4 (3.4-5.0) gm/dl Globulin 2.1 L (2.5-4.0) gm/dl Albumin/Globulin Ratio 2.1 H (0.9-2) Urine Color Yellow Urine Appearance Clear (Clear) Urine pH 7.5 (4.5-7.5) Ur Specific [place] 1.005 (1.000-1.030) Urine Protein Negative (Negative) Urine Glucose (UA) Negative (Negative) Urine Ketones Negative (Negative) Urine Blood Negative (Negative) Urine Nitrite Negative (Negative) Urine Bilirubin Negative (Negative) Urine Urobilinogen Negative (Negative) Ur Leukocyte Esterase Negative (Negative) Urine Comment Imaging Data Radiologist's Impression: Cervical Spine CT 04/03/25 12:15 CT cervical spine wo con CT DOSE: 1305.91 mGy.cm CLINICAL HISTORY: Neck pain, fall. COMPARISON: 03/06/2025 TECHNIQUE: Multiple axial CT images of the cervical spine were obtained without contrast. A dose lowering technique was utilized adhering to the principles of ALARA. FINDINGS: There are moderate diffuse degenerative changes. No cervical spine fracture or subluxation seen. IMPRESSION: No cervical spine fracture seen. ACT 112: Negative or not required by law. The above report was generated using voice recognition software. It may contain grammatical, syntax or spelling errors. Electronically signed by: Renato Gill M.D. 04/03/2025 1:[address] 04/03/25 12:15 CT head/brain wo con CLINICAL HISTORY: fall, on plavix. TECHNIQUE: Multiple axial CT images of the head were obtained without contrast. A dose lowering technique was utilized adhering to the principles of ALARA. COMPARISON: 03/06/2025 FINDINGS: No intracranial hemorrhage seen. No mass effect, midline shift, or hydrocephalus. There is mild mucosal thickening in the maxillary sinuses. No skull fracture seen. IMPRESSION: No acute findings. ACT 112: Negative or not required by law. The above report was generated using voice recognition software. It may contain grammatical, syntax or spelling errors. Electronically signed by: Renato Gill M.D. 04/03/2025 12:57 PM Chest X-Ray 04/03/25 12:17 XR chest 1V portable CLINICAL HISTORY: injury alert, fall COMPARISON STUDY: 03/06/2025 FINDINGS: Stable cardiomegaly without pulmonary vascular congestion. Stable reticular opacity at the left lung base. No consolidation or pleural effusion. No pneumothorax. No grossly displaced rib fracture seen. IMPRESSION: No acute findings. ACT 112: Negative or not required by law. Electronically signed by: Renato Gill M.D. 04/03/2025 12:55 PM Pelvis X-Ray 04/03/25 12:17 XR pelvis 1-2V routine CLINICAL HISTORY: injury alert, fall COMPARISON: 01/09/2024 FINDINGS: Exam is mildly limited by overlying artifact. No fracture or dislocation seen. IMPRESSION: No fracture seen. ACT 112: Negative or not required by law. Electronically signed by: Renato Gill M.D. 04/03/2025 12:54 PM Discharge Plan Visit Data Chief Complaint: Fall Stated Complaint: INJURY ALERT, FALL ED Provider: Yang Najera Discharge Problem: Fall, Weakness Patient Disposition: Home - Self-Care Condition: Good Discharge Instructions Krames/Other Patient Handouts: ED Fall with Uncertain Cause, ED Fall Prevention Activity Restrictions/Additional Instructions: You were seen after your fall. At this time your blood work, CT imaging and chest x-ray are reassuring. Please come back if new, worsening symptoms such as further falls, difficulty walking around, new pain, confusion. Please follow your primary care doctor in the next few days for reevaluation. Interventions: ED Discharge Assessment Last Done: 04/03/25 16:06 Forms Stand Alone Forms: My [facility], Important Visit Information Prescriptions Prescriptions: No Action cholecalciferol (vitamin D3) 25 mcg (1,000 unit) tablet 25 mcg PO BID 90 Days Qty: 180 3RF (DME) blood-glucose meter [OneTouch Ultra2 Meter] Misc See Rx Instructions .Route Qty: 1 0RF Rx Instructions: As directed (DME) OneTouch Ultra Test Strip See Rx Instructions .Route Qty: 100 3RF Rx Instructions: check bsg once daily (DME) lancets [OneTouch UltraSoft 2 Lancet] 30 gauge misc See Rx Instructions .Route Qty: 100 3RF Rx Instructions: check once daily aspirin [Enteric Coated Aspirin] 81 mg tablet,delayed release (DR/EC) 81 mg PO QAM Qty: 90 3RF acetaminophen 325 mg tablet 650 mg PO Q8 MDD 3000mg PRN (Reason: pain) Qty: 240 5RF gabapentin [Neurontin] 300 mg capsule 300 mg PO HS Qty: 30 0RF folic acid 1 mg tablet 1 mg PO QAM Qty: 30 6RF cyanocobalamin (vitamin B-12) 500 mcg tablet 500 mcg PO QAM Qty: 30 6RF omeprazole 20 mg capsule,delayed release(DR/EC) 40 mg PO QAM 30 Days Qty: 60 2RF metformin 500 mg tablet extended release 24 hr 1,000 mg PO QAM Qty: 120 2RF rosuvastatin 20 mg tablet 20 mg PO HS Qty: 90 2RF (DME) Blood Pressure Cuff Misc See Rx Instructions .Route Qty: 1 0RF Rx Instructions: As directed (DME) lancets [OneTouch Delica Plus Lancet] 33 gauge misc See Rx Instructions .Route Qty: 100 0RF Rx Instructions: As directed (DME) Bedside Commode Misc See Rx Instructions .Route Qty: 1 0RF Rx Instructions: As directed (DME) Hospital Bed Homecare Misc See Rx Instructions .Route Qty: 1 0RF Rx Instructions: As directed ferrous sulfate [Iron (ferrous sulfate)] 325 mg (65 mg iron) tablet 325 mg PO QAM levothyroxine [Synthroid] 175 mcg tablet 175 mcg PO DAILY Qty: 30 0RF Referrals Referrals: Hillary Clarke MD [Primary Care Provider] - Discharge Problem: Fall Qualifiers: Encounter type: initial encounter Qualified Code(s): W19.XXXA - Unspecified fall, initial encounter
[2025-04-03 15:06] LABS: Appearance Urine Clear (Clear); Glucose Urine UA Negative (Negative)
--- NOTE | 2025-04-03 19:07 | History & Physical Report ---
Date of Service April 03, 2025 Assessment & Plan (1) Fall: (2) Diabetic polyneuropathy: (3) Polypharmacy: (4) Ambulatory dysfunction: (5) Diabetes mellitus type 2, controlled: (6) Schizoaffective disorder: Plan 64-year-old woman with type II DM, schizoaffective disorder, history of cerebellar stroke 12/2024, chronic vertigo, recurrent falls, who is admitted after a fall feeling too unsteady and unsafe to go home. this is very similar to the last 2 recent admissions, most recently she was discharged to [facility] rehab. #fall, multifactorial gait disorder #chronic vertigo/dizziness #hx cerebellar CVA #polypharmacy I do not appreciate any significant acute injuries, she has some ecchymoses -she has chronic vertigo and dizziness, was assessed by neurology during last admission and he recommended that he thought vertigo was vestibular or related to medications and recommended stopping meclizine -we will continue her aspirin statin and Plavix for her relatively recent cerebellar stroke - assess timing likely DAPT can be stepped down to monotherapy -consult PT and OT for assessment of ambulatory dysfunction -check orthostatic vital signs -monitor for objective evidence of neck symptoms -multiple medications that could be contributing to vertigo and unsteady gait: Gabapentin, clozapine, lamotrigine, Seroquel - it is unlikely that these can be removed from pts current medication list -Medication Trough levels sent last admission, will review #Anemia - 03/08: transferrin 198 + transferrin sat 14, Iron Panel otherwise WNL; B12 + Folate WNL; TSH elevated (noted below); Venofer infusion received 03/08 -Continue Ferrous Sulfate 325mg change to q48h #Hypothyroidism TSH 10.023 on 03/08 -Levothyroxine 175mcg QAM, recently increased #Constipation | Diarrhea RESOLVED; Most recent BM 03/07, per pt -Imodium PRN diarrhea; Miralax PRN constipation #T2DM - Most recent A1c 6.6% - continue metformin and ordered premeal short acting insulin #Diabetic Neuropathy -Continue gabapentin 300 mg HS #Schizoaffective disorder no acute issues; multiple psychiatric medications may contribute to episodes of dizziness. -Continue clozapine 100 mg QAM and 300 mg HS, lamotrigine 200 mg BID, Seroquel 100 mg QAM and 300 mg HS -Clozapine dose has been decreased compared to early March #Hyperlipidemia - Continue rosuvastatin 20 mg HS #GERD continue PPI VTE PPX: Lovenox History of Present Illness Chief Complaint: fall Primary Care Provider: MD Farrah Orosco Jerman 64-year-old woman well-known to this hospital with multiple medical problems schizoaffective disorder and frequent falls, who is admitted after a fall. She was in her usual state of health in her apartment when she fell today either going to or coming from the bathroom. She says that she lost her balance and she has chronic vertigo. She fell forward and hit her face on the floor she was unable to get up and was down approximately 5 hours. She has some headache. she has chronic vertigo/dizziness which is unchanged. She bruised her head over her right lateral eyebrow and she bruised her knees. ED evaluation was unremarkable without evidence of an acute infection or any acute significant injuries. She was planned for discharge home but felt unsafe so it is requested that she be admitted. today in the ED her RN went to get her up to the bathroom while sitting on the stretcher she flopped backwards saying that she was dizzy and that she was falling. RNs assisted her and she slid herself off the stretcher and they lowered her to the floor. She immediately got up and walked to the bathroom. When I examined her she initially had no complaints except having bumped her head and having some headache. While examining her neck she began to say "ow, ow, ow" and would not let me move or touch her neck for exam. This seemed to be a behavioral issue because earlier when I arrived in the room she was moving her neck around supplely without any signs of discomfort. CT of her C-spine was negative for fracture and CT of head negative for intracranial hemorrhage Allergies Allergy/AdvReac Type Severity Reaction Status Date / Time lithium Allergy Unknown Unknown Verified 03/29/25 10:44 escitalopram AdvReac Severe Manic Verified 03/29/25 10:44 haloperidol AdvReac Intermediate dystonia Verified 03/29/25 10:44 Penicillins AdvReac Intermediate Gastrointestinal Verified 03/29/25 10:44 Upset valproic acid AdvReac Intermediate Leg Verified 03/29/25 10:44 Swelling Home Medications Medication Instructions Recorded Confirmed Type cholecalciferol (vitamin D3) 25 25 mcg PO BID 90 days #180 tabs 02/07/24 04/03/25 Rx mcg (1,000 unit) tablet blood-glucose meter (OneTouch #1 ea 03/27/24 03/29/25 Rx Ultra2 Meter) blood sugar diagnostic (OneTouch #100 ea 03/29/24 03/29/25 Rx Ultra Test strips) lancets 30 gauge (OneTouch #100 ea 04/14/24 03/29/25 Rx UltraSoft 2 Lancet) aspirin 81 mg tablet,delayed 81 mg PO QAM #90 tabs 04/15/24 04/03/25 Rx release (Enteric Coated Aspirin) lancets 33 gauge (OneTouch Delica #100 ea 10/13/24 03/29/25 Rx Plus Lancet) miscellaneous medical supply #1 ea 10/13/24 03/29/25 Rx (Blood Pressure Cuff) acetaminophen 325 mg tablet 650 mg (2 x 325 mg) PO Q8 PRN pain 12/18/24 04/03/25 Rx #240 tabs gabapentin 300 mg capsule 300 mg PO HS #30 caps 12/22/24 04/03/25 Rx (Neurontin) cyanocobalamin (vitamin B-12) 500 500 mcg PO QAM #30 tabs 12/23/24 04/03/25 Rx mcg tablet folic acid 1 mg tablet 1 mg PO QAM #30 tabs 12/23/24 04/03/25 Rx metformin 500 mg tablet,extended 1,000 mg (2 x 500 mg) PO QAM #120 12/29/24 04/03/25 Rx release 24 hr tabs omeprazole 20 mg capsule,delayed 40 mg (2 x 20 mg) PO QAM 30 days 12/29/24 04/03/25 Rx release #60 caps Bedside Commode #1 ea 01/12/25 03/29/25 Rx Hospital Bed Homecare #1 ea 01/12/25 03/29/25 Rx ferrous sulfate 325 mg (65 mg 325 mg PO QAM 02/27/25 04/03/25 History iron) tablet (Iron (ferrous sulfate)) levothyroxine 175 mcg tablet 175 mcg PO DAILY #30 tabs 03/10/25 04/03/25 Rx (Synthroid) rosuvastatin 20 mg tablet 20 mg PO HS #90 tabs 03/11/25 04/03/25 Rx Past Med/Surg History Problem List Fall (Acute) Diabetic polyneuropathy Polypharmacy Constipation Ambulatory dysfunction (Acute) Acute generalized abdominal pain (Acute) Emesis (Acute) History of cerebellar stroke (Acute) Dizziness (Acute) Risk for falls Cerebellar stroke, acute Weakness (Acute) Diabetes mellitus type 2, controlled Generalized weakness Lightheadedness Venous stasis dermatitis of both lower extremities (Acute) Low T4 (Acute) Fall (Acute) Anemia (Acute) Dizziness (Acute) Urine incontinence Tremor Esophageal dysmotility Abnormal CT scan, chest Bed sore Knee pain Hypoglycemia Folate deficiency Orthostatic hypotension Weakness (Acute) Vitamin B12 deficiency Fall (Acute) Severe morning sleep inertia Multiple pulmonary nodules determined by computed tomography of lung Anemia (Acute) Schizoaffective disorder (Chronic) Neuropathic pain Enuresis, nocturnal only Iron deficiency anemia Osteoarthritis of right knee Drug-induced parkinsonism Vitamin D deficiency Bilateral lumbar radiculopathy (Acute) Cataract (Acute) Gait instability (Acute) Hypertension (Acute) 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 Hypothyroidism Hyperlipidemia Dizziness (Chronic) Medical History AMS (altered mental status) Calf swelling Schizoaffective disorder Multiple pulmonary nodules pt unsure Vilensky Hypothyroidism HTN (hypertension) Hyperlipidemia Drug-induced parkinsonism pt unsure - sometimes has tremors Dizziness Type 2 diabetes mellitus Cataract Bilateral Anemia Pneumonia Currently on 3x antibiotics for 10 days - Thee - pt denies symptoms "was just found on CT scan" Anxiety Poor historian Hx of diverticulitis of colon History of colon polyps Brain TIA unsure "2019 maybe, not sure" Depression Frequent falls most recent 01/09/24 [facility] Chronic back pain GERD (gastroesophageal reflux disease) Asthma inhaler prn Surgical History History of removal of cyst benign cyst removed right breast History of colonoscopy History of tooth extraction all teeth removed History of tonsillectomy and adenoidectomy Family History Grandmother (Paternal) Diabetes Grandmother (Maternal) Diabetes Mother Anemia Bipolar disorder Cardiomyopathy Coronary heart disease Father Diabetes FH: kidney cancer Other No family history of adverse response to anesthesia Parkinson disease Parkinsonian syndrome Social History Smoking Status: Never smoker Second Hand Exposure: No; Do You Dip or Chew Tobacco: No; Hx Alcohol Use: No Hx Substance Use: No Preferred Language: Greenlandic Communication Ability: Effective Visual Impairment: No Limitations Hearing Ability: Normal Computer Video Game Designer Required: No Beliefs That Will Affect Care: None marital status: Single Current Living Situation: Alone Current Living Situation Comment: Lives alone in a seven floor apartment Feels Safe at Home: Yes Gender Identity: Female Assistive Devices: Bedside Commode and Walker Review of Systems Review of Systems: All systems reviewed & are unremarkable except as noted in HPI & below Physical Exam Physical Exam: Last 24h vitals reviewed GEN: no acute distress, reclining on stretcher HEENT: pupils equal, sclerae anicteric, moist MM. Mild ecchymosis without laceration over right lateral brow. Strabismus right eye. Can't formally assess neck because of behavior described in HPI. Had been moving neck around normally during interview prior to exam. RESP: normal WOB, CTAB CV: reg no mrg ABD: soft/nt/nd +BT : no ramirez SKIN: warm and dry, no generalized rashes EXT: ecchymoses over both patellae worse on right. 1+ ankle and pedal edema NEURO: AOx person, place, and situation. Face symmetric, speech normal, moves 4 ext spontaneously and equally PSYCH: odd affect, some anxiety and some acting out behaviors Results & Data Results & Data Vital Signs (Past 12 Hours) Vital Signs Temp Pulse Pulse Resp BP BP Pulse Ox 04/03/25 18:31 134/92 04/03/25 18:31 134/92 04/03/25 18:30 20 04/03/25 18:00 143/82 H 04/03/25 18:00 143/82 H 04/03/25 18:00 25 H 04/03/25 17:51 80 22 04/03/25 17:42 80 14 04/03/25 17:30 83 21 100 04/03/25 17:30 156/96 H 04/03/25 17:30 156/96 H 04/03/25 17:30 156/96 H 04/03/25 17:21 85 16 100 04/03/25 17:12 18 99 04/03/25 17:00 122/78 04/03/25 17:00 122/78 04/03/25 17:00 122/78 04/03/25 17:00 122/78 04/03/25 17:00 122/78 04/03/25 16:57 99 04/03/25 16:57 147/82 H 04/03/25 16:57 147/82 H 04/03/25 16:57 147/82 H 04/03/25 16:06 36.5 C 78 16 149/98 H 99 04/03/25 16:00 85 12 04/03/25 15:59 149/98 H 04/03/25 15:57 80 16 99 04/03/25 15:51 79 15 99 04/03/25 15:42 80 15 100 04/03/25 15:30 77 20 100 04/03/25 15:21 79 18 100 04/03/25 15:12 80 18 100 04/03/25 15:02 163/99 H 04/03/25 15:00 79 18 04/03/25 15:00 79 14 163/99 H 98 04/03/25 14:08 77 04/03/25 14:00 80 18 144/92 H 99 04/03/25 13:00 81 12 161/92 H 96 04/03/25 12:17 81 20 150/98 H 99 04/03/25 11:25 36.4 C L 84 20 119/78 99 04/03/25 11:25 36.4 C L 84 20 119/78 99 O2 Del Method 04/03/25 18:31 04/03/25 18:31 04/03/25 18:30 04/03/25 18:00 04/03/25 18:00 04/03/25 18:00 04/03/25 17:51 04/03/25 17:42 04/03/25 17:30 04/03/25 17:30 04/03/25 17:30 04/03/25 17:30 04/03/25 17:21 04/03/25 17:12 04/03/25 17:00 04/03/25 17:00 04/03/25 17:00 04/03/25 17:00 04/03/25 17:00 04/03/25 16:57 04/03/25 16:57 04/03/25 16:57 04/03/25 16:57 04/03/25 16:06 Room Air 04/03/25 16:00 04/03/25 15:59 04/03/25 15:57 04/03/25 15:51 04/03/25 15:42 04/03/25 15:30 04/03/25 15:21 04/03/25 15:12 04/03/25 15:02 04/03/25 15:00 04/03/25 15:00 Room Air 04/03/25 14:08 04/03/25 14:00 Room Air 04/03/25 13:00 Room Air 04/03/25 12:17 Room Air 04/03/25 11:25 Room Air 04/03/25 11:25 Room Air Laboratory Results with blood count of 5, hemoglobin 9.8 which is unchanged, platelets of 234 Chemistry panel normal except for mildly elevated anion gap of 12 LFTs are normal Total CK 381, minimally elevated urinalysis is normal personally reviewed chest x-ray film which shows some cardiomegaly and left base mild opacity, according to radiologist report this particular area is unchanged from previous films she had a pelvis x-ray which was negative for fracture, head CT with no acute findings, C-spine CT with no acute fractures Code Status & VTE Plan VTE Prophylaxis Plan VTE Prophylaxis will be ordered: Yes PG Care Time/CCT Total # of Minutes Spent Total Time Spent with Patient: Total time spent is greater than 50% in coordination of care (as documented) at patient's floor/unit and/or counseling patient: Coding Level of Care Code 55025 INT INP/OBS CARE 2/55MIN Diagnoses Fall W19.XXXA Encounter type: initial encounter Diabetic polyneuropathy E11.42 Polypharmacy Z79.899 Ambulatory dysfunction R26.2 Diabetes mellitus type 2, controlled E11.9 Schizoaffective disorder, bipolar type F25.0 Schizoaffective disorder type: bipolar (1) Fall Encounter type: initial encounter Qualified Code(s): W19.XXXA - Unspecified fall, initial encounter (6) Schizoaffective disorder Schizoaffective disorder type: bipolar Qualified Code(s): F25.0 - Schizoaffective disorder, bipolar type
[2025-04-03] MEDS ORDERED: GLUCOSE 10 TAB/TUBE PO PRN (19:35)
[2025-04-03] MEDS ORDERED: ALUMINUM/MAGNESIUM SUSP 30 ML UDC PO PRN (19:35)
[2025-04-03] MEDS ORDERED: DEXTROSE 50% 50 ML SYRINGE IV PRN (19:35)
[2025-04-03] MEDS ORDERED: GLUCOSE 40% GEL 15 GM TUBE PO PRN (19:35)
[2025-04-03] MEDS ORDERED: CARBOHYDRATES FOR HYPOGLYCEMIA PO PRN (19:35)
[2025-04-03] MEDS ORDERED: POLYETHYLENE (MIRALAX) 17 GM PACK PO PRN (19:35)
[2025-04-03] MEDS ORDERED: ONDANSETRON INJ 2 MG/ML 2 ML VIAL IV PRN (19:35)
[2025-04-03] MEDS ORDERED: GLUCAGON FOR INJ 1 MG VIAL SQ PRN (19:35)
[2025-04-03 20:06] LABS: Hematocrit (blood only) 32.4 % (37.0-47.0); Hemoglobin 10.3 g/dL (12.0-16.0); Immature Granulocytes # (auto) 0.03 K/uL (0.01-0.20); Immature Granulocytes % (auto) 0.5 %; Mean Corpuscular Hemoglobin 30.1 pg (25.0-34.0); Mean Corpuscular Volume 94.7 fL (80.0-100.0); Platelet Count 226 K/uL (130-400); RDW Standard Deviation 50.3 fL (36.4-46.3); Red Blood Count 3.42 M/uL (4.20-5.40); White Blood Count 6.56 K/ul (4.8-10.8)
[2025-04-03] MEDS: ACETAMINOPHEN 325 MG TAB PO PRN (21:03)
[2025-04-03] MEDS: lamoTRIgine 100 MG TAB PO SCH (21:06)
[2025-04-03] MEDS: GABAPENTIN 300 MG CAP PO SCH (21:08)
[2025-04-03] MEDS: NYSTATIN POWDER 15GM BTL EXT SCH (21:09)
[2025-04-03] MEDS: INSULIN ASPART PER UNIT CHARGE SC SCH (22:06)
[2025-04-04] MEDS: LEVOTHYROXINE SODIUM 175 MCG TABLET PO SCH (06:06)
[2025-04-04] MEDS: CLOPIDOGREL BISULFATE 75 MG TAB PO SCH (12:14)
[2025-04-04] MEDS: FOLIC ACID 1 MG TAB PO SCH (12:15)
[2025-04-04] MEDS: ASPIRIN 81 MG ECTAB PO SCH (12:15)
--- NOTE | 2025-04-04 15:06 | Hospitalist Progress Note ---
"Date of Service April 04, 2025 Assessment & Plan (1) Fall: (2) Diabetic polyneuropathy: (3) Polypharmacy: (4) Ambulatory dysfunction: (5) Diabetes mellitus type 2, controlled: (6) Schizoaffective disorder: Plan 64-year-old woman with type II DM, schizoaffective disorder, history of cerebellar stroke 12/2024, chronic vertigo, recurrent falls, who is admitted after a fall feeling too unsteady and unsafe to go home. this is very similar to the last 2 recent admissions, most recently she was discharged to [facility] rehab. #fall, multifactorial gait disorder #chronic vertigo/dizziness #hx cerebellar CVA #polypharmacy I do not appreciate any significant acute injuries, she has some ecchymoses -she has chronic vertigo and dizziness, was assessed by neurology during last admission and he recommended that he thought vertigo was vestibular or related to medications and recommended stopping meclizine - she has completed greater than 21 days of DAPT following her cerebellar stroke in late December, stop aspirin and continue Plavix monotherapy, continue statin -consult PT and OT for assessment of ambulatory dysfunction - still pending -check orthostatic vital signs - neck exam is normal today with no tenderness or evidence of pain -multiple medications that could be contributing to vertigo and unsteady gait: Gabapentin, clozapine, lamotrigine, Seroquel. appears the clozapine dose was reduced somewhat in March a.m. of 04/04 she is over sedated after receiving her usual nighttime medications, was too lethargic to get a.m. meds Seroquel was held - decreased Seroquel to 150 mg p.o. at bedtime ( while continuing 100 mg every morning) and decreased gabapentin to 100 mg p.o. at bedtime which appropriate for her age/ GFR/ polypharmacy #Anemia - 03/08: transferrin 198 + transferrin sat 14, Iron Panel otherwise WNL; B12 + Folate WNL; TSH elevated (noted below); Venofer infusion received 03/08 -Continue Ferrous Sulfate 325mg change to q48h #Hypothyroidism TSH 10.023 on 03/08 -Levothyroxine 175mcg QAM, recently increased #Constipation | Diarrhea RESOLVED; Most recent BM 03/07, per pt -Imodium PRN diarrhea; Miralax PRN constipation #T2DM - Most recent A1c 6.6% - continue metformin and ordered premeal short acting insulin #Diabetic Neuropathy -Continue gabapentin reduced to 100 mg HS #Schizoaffective disorder no acute issues; multiple psychiatric medications may contribute to episodes of dizziness. -Continue clozapine 100 mg QAM and 300 mg HS, lamotrigine 200 mg BID, Seroquel reduced to 100 mg QAM and 150 mg HS because of oversedation -Clozapine dose has been decreased compared to early March #Hyperlipidemia - Continue rosuvastatin 20 mg HS #GERD continue PPI VTE PPX: Lovenox Admission and Anticipated Discharge Date Admission Date: April 03, 2025 Subjective last night continuously demanding [employer] and eventually nursing/resident gave in discussed with nursing staff late morning, she has been sleeping all morning and was slow to arouse. For me she awoke to voice and gentle tactile stimulation remains sleepy she finally got up around 2 PM, Requesting to speak to me again Physical Exam Physical Exam: Last 24h vitals reviewed GEN: lying in bed asleep HEENT: right eye strabismus, PERRL, EOMI, mild ecchymosis over left lateral eyebrow, neck is supple and nontender with range of motion, nontender over C- spine RESP: normal WOB, CTAB anteriorly CV: reg no mrg ABD: soft/nt/nd +BT : no ramirez SKIN: warm and dry, no generalized rashes EXT: ecchymoses over both patellae worse on right. 1+ ankle and pedal edema unchanged NEURO: aroused to voice opened eyes made a few verbal responses which did make sense then closed eyes and went back to sleep again. She did follow commands squeezed both molding engineer and moved both feet PSYCH: avoidant of interaction currently Results & Data Results & Data Vital Signs (Past 12 Hours) Vital Signs Temp Pulse Resp BP Pulse Ox O2 Del Method 04/04/25 07:07 37.1 C 73 16 105/71 95 Room Air PG Care Time/CCT Total # of Minutes Spent Total Time Spent with Patient: Total time spent is greater than 50% in coordination of care (as documented) at patient's floor/unit and/or counseling patient: Coding Level of Care Code 91052 SUB INP/OBS CARE 2/35MIN Diagnoses Fall W19.XXXA Encounter type: initial encounter Diabetic polyneuropathy E11.42 Polypharmacy Z79.899 Ambulatory dysfunction R26.2 Diabetes mellitus type 2, controlled E11.9 Schizoaffective disorder, bipolar type F25.0 Schizoaffective disorder type: bipolar (1) Fall Encounter type: initial encounter Qualified Code(s): W19.XXXA - Unspecified fall, initial encounter (6) Schizoaffective disorder Schizoaffective disorder type: bipolar Qualified Code(s): F25.0 - Schizoaffective disorder, bipolar type"
[2025-04-04] MEDS: GABAPENTIN 100 MG CAP PO SCH (21:04)
[2025-04-04] MEDS: ENOXAPARIN INJ 40 MG/0.4 ML SYR SQ SCH (21:07)
[2025-04-05] MEDS: MAGNESIUM HYDROXIDE SUSP 30 ML UDC PO PRN (13:28)
--- NOTE | 2025-04-05 16:28 | Hospitalist Progress Note ---
"Date of Service April 05, 2025 Assessment & Plan (1) Fall: (2) Diabetic polyneuropathy: (3) Polypharmacy: (4) Ambulatory dysfunction: (5) Diabetes mellitus type 2, controlled: (6) Schizoaffective disorder: Plan 64-year-old woman with type II DM, schizoaffective disorder, history of cerebellar stroke 12/2024, chronic vertigo, recurrent falls, who is admitted after a fall feeling too unsteady and unsafe to go home. this is very similar to the last 2 recent admissions, most recently she was discharged to [facility] rehab. #fall, multifactorial gait disorder #chronic vertigo/dizziness #hx cerebellar CVA #polypharmacy Without any acute injuries on assessment -she has chronic vertigo and dizziness, was assessed by neurology during last admission and he recommended that he thought vertigo was vestibular or related to medications and recommended stopping meclizine -she has completed greater than 21 days of DAPT following her cerebellar stroke in late December, stop aspirin and continue Plavix monotherapy, continue statin -consult PT and OT for assessment of ambulatory dysfunction - still pending -check orthostatic vital signs -multiple medications that could be contributing to vertigo and unsteady gait: Gabapentin, clozapine, lamotrigine, Seroquel. Appears the clozapine dose was reduced somewhat in March. a.m. of 04/04 she is over sedated after receiving her usual nighttime medications, was too lethargic to get a.m. meds Seroquel was held -decreased Seroquel to 150 mg p.o. at bedtime (while continuing 100 mg every morning) and decreased gabapentin to 100 mg p.o. at bedtime which appropriate for her age/ GFR/ polypharmacy note patient had toxic Clozaril level 03/07/25 1605, need to verify if her dosing as decreased enough to reach normal level (outpatient psychiatry at [facility]-->>need to confirm prior to discharge) -curbside correspondence with Dr. Sultana, psychiatry, regarding Clozaril level and high yield SEs to look for regarding toxicity which is primarily seizure activity (patient has had no seizure activity), suggests to redraw Clozaril level although this will take one week to result and in the interim confirm if Clozaril dosing was decreased and if not consider discontinuation of am dose of Clozaril -recheck CPK level in am #Anemia - 12/1: transferrin 198 + transferrin sat 14, Iron Panel otherwise WNL; B12 + Folate WNL; TSH elevated (noted below); Venofer infusion received 03/08 -Continue Ferrous Sulfate 325mg change to q48h #Hypothyroidism TSH 10.023 on 03/08 -Levothyroxine 175mcg QAM, recently increased #Constipation | Diarrhea RESOLVED; Most recent BM 03/07, per pt -Imodium PRN diarrhea; Miralax PRN constipation #T2DM - Most recent A1c 6.6% - continue metformin and ordered premeal short acting insulin #Diabetic Neuropathy -Continue gabapentin-->reduced to 100 mg HS #Schizoaffective disorder no acute issues; multiple psychiatric medications may contribute to episodes of dizziness. -Continue clozapine 100 mg QAM and 300 mg HS, lamotrigine 200 mg BID, Seroquel reduced to 100 mg QAM and 150 mg HS because of oversedation -Clozapine dose has been decreased compared to early March, clarify decreased dosage -repeat Clozaril level #Hyperlipidemia - Continue rosuvastatin 20 mg HS #GERD continue PPI VTE PPX: Lovenox Dispo: Admission to med/surg, possible d/c home 04/06 Admission and Anticipated Discharge Date Admission Date: April 04, 2025 Subjective Patient in pleasant spirits this am. She has no acute complaints. States she would like to go home. Review of Systems Review of Systems: All systems reviewed & are unremarkable except as noted in Subjective Physical Exam Physical Exam: GENERAL APPEARANCE: A&O. Sitting comfortably in chair. NAD. SKIN: Normal color without rashes or lesions. Normal turgor. HEENT: Head AT/NC. Buccal mucosa is moist and pink. NECK: No jugular venous distention. No thyroid enlargement. There is no lymphadenopathy. HEART: RRR without m/g/r LUNGS: Normal inspiratory effort. CTA without w/r/r ABDOMEN: No guarding or rigidity. Normoactive BS in all four quadrants. Abdomen soft and NT. MSK: No bony gross/deformities throughout. ROM intact. EXTREMITIES: No edema, No peripheral cyanosis. Neuro: CN 2-12 grossly intact. No focal neuro deficits PSYCHIATRIC: Normal affect. Eye contact is good. Speech is normal rate and content. Responses are appropriate. Results & Data Results & Data Vital Signs (Past 12 Hours) Vital Signs Temp Pulse Resp BP Pulse Ox O2 Del Method 04/05/25 15:14 36.9 C 74 18 114/71 96 Room Air 04/05/25 07:43 36.9 C 75 19 128/83 96 Room Air Laboratory Results No labs reviewed PG Care Time/CCT Total # of Minutes Spent Total Time Spent with Patient: Total time spent is greater than 50% in coordination of care (as documented) at patient's floor/unit and/or counseling patient: Coding Level of Care Code 91804 SUB INP/OBS CARE 2/35MIN Diagnoses Fall W19.XXXA Encounter type: initial encounter Diabetic polyneuropathy E11.42 Polypharmacy Z79.899 Ambulatory dysfunction R26.2 Diabetes mellitus type 2, controlled E11.9 Schizoaffective disorder, bipolar type F25.0 Schizoaffective disorder type: bipolar (1) Fall Encounter type: initial encounter Qualified Code(s): W19.XXXA - Unspecified fall, initial encounter (6) Schizoaffective disorder Schizoaffective disorder type: bipolar Qualified Code(s): F25.0 - Schizoaffective disorder, bipolar type"
[2025-04-05] MEDS: MELATONIN 3 MG TAB PO PRN (20:31)
[2025-04-06 09:33] LABS: Anion Gap 8.0 (3-11); Blood Urea Nitrogen 15.0 mg/dl (6-23); Calcium 9.1 mg/dl (8.6-10.3); Carbon Dioxide 27.0 mmol/L (21-32); Chloride 102.0 mmol/L (98-107); Creatine Kinase 169.0 U/L (26-192); Creatinine Clr Calc Pharmacy 65.9 ml/min; Glucose 160.0 mg/dl (70-99(Fasting)); Potassium 4.4 mmol/L (3.5-5.1); Sodium 137.0 mmol/L (136-145)
--- NOTE | 2025-04-06 11:40 | Discharge Summary ---
Discharge Summary Date of Service April 06, 2025 Principal Dx & Hospital Course #1 = Principal Diagnosis (1) Fall: (2) Diabetic polyneuropathy: (3) Polypharmacy: (4) Ambulatory dysfunction: (5) Diabetes mellitus type 2, controlled: (6) Schizoaffective disorder: Plan 64-year-old woman with type II DM, schizoaffective disorder, history of cerebellar stroke 12/2024, chronic vertigo, recurrent falls, who is admitted after a fall feeling too unsteady and unsafe to go home. this is very similar to the last 2 recent admissions, most recently she was discharged to [facility]. #fall, multifactorial gait disorder #chronic vertigo/dizziness #hx cerebellar CVA #polypharmacy Without any acute injuries on assessment -she has chronic vertigo and dizziness, was assessed by neurology during last admission and he recommended that he thought vertigo was vestibular or related to medications and recommended stopping meclizine -she has completed greater than 21 days of DAPT following her cerebellar stroke in late December, stop aspirin and continue Plavix monotherapy, continue statin -consult PT and OT for assessment of ambulatory dysfunction - still pending -check orthostatic vital signs -multiple medications that could be contributing to vertigo and unsteady gait: Gabapentin, clozapine, lamotrigine, Seroquel. Appears the clozapine dose was reduced somewhat in March. a.m. of 04/04 she is over sedated after receiving her usual nighttime medications, was too lethargic to get a.m. meds Seroquel was held -decreased Seroquel to 150 mg p.o. at bedtime (while continuing 100 mg every morning) and decreased gabapentin to 100 mg p.o. at bedtime which appropriate for her age/ GFR/ polypharmacy note patient had toxic Clozaril level 03/07/25 1605, need to verify if her dosing as decreased enough to reach normal level (outpatient psychiatry at [facility]-->>need to confirm prior to discharge) -curbside correspondence with Dr. Sultana, psychiatry, regarding Clozaril level and high yield SEs to look for regarding toxicity which is primarily seizure activity (patient has had no seizure activity), suggests to redraw Clozaril level although this will take one week to result and in the interim confirm if Clozaril dosing was decreased and if not consider discontinuation of am dose of Clozaril -recheck CPK level in am #Anemia - 03/08: transferrin 198 + transferrin sat 14, Iron Panel otherwise WNL; B12 + Folate WNL; TSH elevated (noted below); Venofer infusion received 03/08 -Continue Ferrous Sulfate 325mg change to q48h #Hypothyroidism TSH 10.023 on 03/08 -Levothyroxine 175mcg QAM, recently increased #Constipation | Diarrhea RESOLVED; Most recent BM 03/07, per pt -Imodium PRN diarrhea; Miralax PRN constipation #T2DM - Most recent A1c 6.6% - continue metformin and ordered premeal short acting insulin #Diabetic Neuropathy -Continue gabapentin-->reduced to 100 mg HS #Schizoaffective disorder no acute issues; multiple psychiatric medications may contribute to episodes of dizziness. Continue clozapine 100 mg QAM and 300 mg HS, lamotrigine 200 mg BID, Seroquel reduced to 100 mg QAM and 150 mg HS because of oversedation Clozapine dose has been decreased compared to early March, clarify decreased dosage repeat Clozaril level #Hyperlipidemia Continue rosuvastatin 20 mg HS #GERD Continue PPI Day of discharge 04/06: VSS Mrs. Stoll is in good spirits this morning. She reports she feels "a lot better" than when she originally came into the hospital. She denies feeling dizzy or lightheaded when she stands or ambulates. She does live by herself at [facility], and uses a rollator at baseline, but reports she feels much better on her feet after having medication adjustments. She also reports she has "lots of aides" who come to help with cooking, cleaning, and transportation. Patient reports she had a fall and hit her head on the kitchen table prior to arrival, but has been doing well since this time. She did attend her psychiatry appointment on 03/25, but she is unsure about medication changes. She denies any ringing in her ears, dizziness, lightheadedness, or difficulty walking at this time. She versus a desire to return home today if possible. Called Dian ([place]) on 04/06 requesting release of information regarding appointment on 03/25. They were reportedly no medication adjustments made at this appointment. ROS: Patient denies fever, chills, night sweats, dizziness/lightheadedness with standing, headaches, changes in vision, tinnitus, chest pain, SOB, ARRIETA, ab dominal pain, N/V/D, or lower extremity weakness. Disposition: Discharge home with psychiatry follow-up Patient reports she has a [employer] bus arragned for noon today on 04/06. Admission HPI Per Admitting Provider Farrah Stoll 64-year-old woman well-known to this hospital with multiple medical problems schizoaffective disorder and frequent falls, who is admitted after a fall. She was in her usual state of health in her apartment when she fell today either going to or coming from the bathroom. She says that she lost her balance and she has chronic vertigo. She fell forward and hit her face on the floor she was unable to get up and was down approximately 5 hours. She has some headache. she has chronic vertigo/dizziness which is unchanged. She bruised her head over her right lateral eyebrow and she bruised her knees. ED evaluation was unremarkable without evidence of an acute infection or any acute significant injuries. She was planned for discharge home but felt unsafe so it is requested that she be admitted. today in the ED her RN went to get her up to the bathroom while sitting on the stretcher she flopped backwards saying that she was dizzy and that she was falling. RNs assisted her and she slid herself off the stretcher and they lowered her to the floor. She immediately got up and walked to the bathroom. When I examined her she initially had no complaints except having bumped her head and having some headache. While examining her neck she began to say "ow, ow, ow" and would not let me move or touch her neck for exam. This seemed to be a behavioral issue because earlier when I arrived in the room she was moving her neck around supplely without any signs of discomfort. CT of her C-spine was negative for fracture and CT of head negative for intracranial hemorrhage Discharge Plan Discharge Items Patient Disposition: Home - Self-Care Reason For Visit: AMBULATORY DYSFUNCTION, FALL Discharge Diagnosis: Ambulatory dysfunction, fall Condition on Discharge: Good Activity: Resume your previous activity Bathing: No limitations Non-emergency contact: Primary Care Provider Call non-emergency contact if: you have any medication questions, your symptoms worsen and your pain is not controlled Follow-up/Referrals: Hillary Clarke MD [Primary Care Provider] - Diet: Carb Consistent or DM2 Addtl Attending Provider Instructions: Medications: Your medication list has been reviewed and reconciled upon discharge to ensure accuracy and continuity of care. An updated list of all your medications is included with your hospital discharge paperwork. Please review this list closely, and make note of any changes. Changes to medications on discharge: Quetiapine ("Seroquel") evening dose has been decreased from 300 mg to 150 mg Gabapentin evening dose has been decreased from 300 mg to 100 mg Discontinue aspirin 81 mg daily Please continue to take clozapine 150 mg in the morning, and 350 mg in the evening, as previously taken prior to hospitalization. A serum clozapine level was drawn prior to discharge; please plan to follow-up with your psychiatry team at [facility] in [place] if needs to be any adjustments in this medication based on these levels. Take your medications as instructed; do not skip a dose of your medicines. Make sure all of your doctors know every medicine you are taking (including yexc-brk-dpqbiad medicines, vitamins, and supplements). Call your primary care provider before taking any new medicines (including over- the-counter medicines, vitamins, and supplements), because some of these may interact with your current medications, or may make your symptoms worse. Tell your primary care provider if you cannot afford your medications. Activity: You can do normal everyday activities as your body allows. Take rest breaks if you feel tired. Do not overexert. Stop activity if you have pain, shortness of breath or feel dizzy. Follow-up appointments: Make an appointment with your primary care physician within one week of discharge. A copy of this summary will be sent to them. Every time you see your primary care physician, or any other doctor, bring your medication list, and a list of questions. CONTACT YOUR PRIMARY CARE PROVIDER if you experience any of the following: Shortness of breath or difficulty breathing Fevers or chills Feeling tired with normal activity or experiencing dizziness or fainting Difficulty following your treatment plan, or difficulty taking medications CALL 911 OR GO TO THE EMERGENCY DEPARTMENT if you experience any of the following: Severe abdominal pain or nausea/vomiting Severe chest pain, or chest pain that radiates (moves) to your jaw or arm Sudden, severe shortness of breath or difficulty breathing Thank you for allowing us to participate in your care. Please reach out with any questions or concerns. Sincerely, The Hospital medicine team at [facility] Pending Studies at Discharge: Yes Studies:: Clozapine level Stand-Alone Forms: My [facility] Medications and DC Order Prescriptions: New quetiapine 25 mg Tablet 150 mg PO HS 30 Days Qty: 180 0RF Rx Instructions: Take 150 mg at bedtime clozapine 100 mg Tablet 300 mg PO HS 30 Days Qty: 90 0RF clozapine 100 mg Tablet 100 mg PO QAM 30 Days Qty: 30 0RF clopidogrel 75 mg Tablet 75 mg PO QAM Qty: 30 0RF quetiapine 100 mg Tablet 100 mg PO QAM Qty: 30 0RF Rx Instructions: Take 100 mg in the morning gabapentin 100 mg Capsule 100 mg PO HS Qty: 30 0RF Rx Instructions: Take 1 capsule at nighttime lamotrigine 100 mg Tablet 200 mg PO BID 30 Days Qty: 120 0RF Rx Instructions: Take 2 tablets (200mg) twice daily clozapine 50 mg tablet 50 mg PO Q12H Qty: 30 0RF Continued cholecalciferol (vitamin D3) 25 mcg (1,000 unit) tablet 25 mcg PO BID 90 Days Qty: 180 3RF (DME) blood-glucose meter [OneTouch Ultra2 Meter] Misc See Rx Instructions .Route Qty: 1 0RF Rx Instructions: As directed (DME) OneTouch Ultra Test Strip See Rx Instructions .Route Qty: 100 3RF Rx Instructions: check bsg once daily (DME) lancets [OneTouch UltraSoft 2 Lancet] 30 gauge misc See Rx Instructions .Route Qty: 100 3RF Rx Instructions: check once daily acetaminophen 325 mg tablet 650 mg PO Q8 MDD 3000mg PRN (Reason: pain) Qty: 240 5RF folic acid 1 mg tablet 1 mg PO QAM Qty: 30 6RF cyanocobalamin (vitamin B-12) 500 mcg tablet 500 mcg PO QAM Qty: 30 6RF omeprazole 20 mg capsule,delayed release(DR/EC) 40 mg PO QAM 30 Days Qty: 60 2RF metformin 500 mg tablet extended release 24 hr 1,000 mg PO QAM Qty: 120 2RF rosuvastatin 20 mg tablet 20 mg PO HS Qty: 90 2RF (DME) Blood Pressure Cuff Misc See Rx Instructions .Route Qty: 1 0RF Rx Instructions: As directed (DME) lancets [OneTouch Delica Plus Lancet] 33 gauge misc See Rx Instructions .Route Qty: 100 0RF Rx Instructions: As directed (DME) Bedside Commode Misc See Rx Instructions .Route Qty: 1 0RF Rx Instructions: As directed (DME) Hospital Bed Homecare Misc See Rx Instructions .Route Qty: 1 0RF Rx Instructions: As directed ferrous sulfate [Iron (ferrous sulfate)] 325 mg (65 mg iron) tablet 325 mg PO QAM levothyroxine [Synthroid] 175 mcg tablet 175 mcg PO DAILY Qty: 30 0RF Discontinued aspirin [Enteric Coated Aspirin] 81 mg tablet,delayed release (DR/EC) 81 mg PO QAM Qty: 90 3RF gabapentin [Neurontin] 300 mg capsule 300 mg PO HS Qty: 30 0RF Discharge Orders: Discharge Order (Routine); Ordered 04/06/25 Ordered By: Jermaine Stewart Admission Data Admit Date/Time: 04/04/25 14:58 Attending Provider: Deborah Altamirano Admit Provider: Deborah Altamirano Primary Care Provider: Hillary Clarke Other Providers: Deborah Altamirano; [facility] Hospital Stay Data Consultations 04/03/25 17:42 ED Decision to Admit Stat Diagnostic Imagining Performed 04/03/25 12:15 CT cervical spine wo con Stat CT head/brain wo con Stat Pending Results Patient Have Any Pending Studies at Discharge: Yes Discharge Instructions Given to Patient (Per Discharging Provider) Medications: Your medication list has been reviewed and reconciled upon discharge to ensure accuracy and continuity of care. An updated list of all your medications is included with your hospital discharge paperwork. Please review this list closely, and make note of any changes. Changes to medications on discharge: Quetiapine ("Seroquel") evening dose has been decreased from 300 mg to 150 mg Gabapentin evening dose has been decreased from 300 mg to 100 mg Discontinue aspirin 81 mg daily Please continue to take clozapine 150 mg in the morning, and 350 mg in the evening, as previously taken prior to hospitalization. A serum clozapine level was drawn prior to discharge; please plan to follow-up with your psychiatry team at [facility] in [place] if needs to be any adjustments in this medication based on these levels. Take your medications as instructed; do not skip a dose of your medicines. Make sure all of your doctors know every medicine you are taking (including ahtx-ojo-sqhwqwo medicines, vitamins, and supplements). Call your primary care provider before taking any new medicines (including over- the-counter medicines, vitamins, and supplements), because some of these may interact with your current medications, or may make your symptoms worse. Tell your primary care provider if you cannot afford your medications. Activity: You can do normal everyday activities as your body allows. Take rest breaks if you feel tired. Do not overexert. Stop activity if you have pain, shortness of breath or feel dizzy. Follow-up appointments: Make an appointment with your primary care physician within one week of discharge. A copy of this summary will be sent to them. Every time you see your primary care physician, or any other doctor, bring your medication list, and a list of questions. CONTACT YOUR PRIMARY CARE PROVIDER if you experience any of the following: Shortness of breath or difficulty breathing Fevers or chills Feeling tired with normal activity or experiencing dizziness or fainting Difficulty following your treatment plan, or difficulty taking medications CALL 911 OR GO TO THE EMERGENCY DEPARTMENT if you experience any of the followin g: Severe abdominal pain or nausea/vomiting Severe chest pain, or chest pain that radiates (moves) to your jaw or arm Sudden, severe shortness of breath or difficulty breathing Thank you for allowing us to participate in your care. Please reach out with any questions or concerns. Sincerely, The Hospital medicine team at [facility] Coding Diagnoses Fall [id number] Encounter type: initial encounter Diabetic polyneuropathy E11.42 Polypharmacy Z79.899 Ambulatory dysfunction R26.2 Diabetes mellitus type 2, controlled E11.9 Schizoaffective disorder, bipolar type F25.0 Schizoaffective disorder type: bipolar
--- NOTE | 2025-04-06 12:07 | Hospitalist Progress Note ---
Date of Service April 06, 2025 Assessment & Plan (1) Fall: (2) Diabetic polyneuropathy: (3) Polypharmacy: (4) Ambulatory dysfunction: (5) Diabetes mellitus type 2, controlled: (6) Schizoaffective disorder: Plan Addendum at 1300 on 04/06: Received message from case management at 10:12 that patient had reportedly called a [employer] to pick her up today at noon. However, at time of discharge, patient became upset as she felt like she was being rushed to leave. We offered to provide alternative forms of transport for patient to return home if she missed her ride (such as setting up transport, or calling an Uber). Patient declined all alternatives, stating that she needed to stay until tomorrow because she missed her ride. When asked why she felt the need to stay, patient appeared to be conflicted. She reported reported things such as "I cannot stand being here", as well as "I do not feel safe going home". She also threatened to "[facility]ose manuel the hospital" if she were discharged today. Patient did endorse being quite anxious about discharge at this time. However - at the same time - she notes her ambulatory dysfunction has improved greatly while decreasing her quetiapine and gabapentin dosages. The reasons she reported for requesting an additional night in the hospital: (1) extreme anxiety following an argument with her friend, and (2) requesting an additional day to assess her mood/ambulatory function after her medications were adjusted. Discussed with both case management and nursing staff. We can plan for discharge tomorrow at 10 AM. Our goal throughout the day will be to continue to monitor for mood changes, and continue to work on ambulatory function. Barring setbacks, patient is amenable to discharge home tomorrow. 64-year-old woman with type II DM, schizoaffective disorder, history of cerebellar stroke 12/2024, chronic vertigo, recurrent falls, who is admitted after a fall feeling too unsteady and unsafe to go home. this is very similar to the last 2 recent admissions, most recently she [facility]. #Fall, multifactorial gait disorder | chronic vertigo/dizziness | hx cerebellar CVA | polypharmacy Without any acute injuries on assessment She has chronic vertigo and dizziness, was assessed by neurology during last admission, who thought vertigo was vestibular or related to medications and recommended stopping meclizine Per review of neurology note on 03/10, it was thought that Seroquel could be the primary contributor to patient's ambulatory dysfunction PT/OT evaluations appreciated Recommend return home with PT and resume caregiver/aide services upon discharge Multiple medications that could be contributing to vertigo and unsteady gait: Gabapentin, clozapine, lamotrigine, Seroquel Medication changes during this admission: Decreased Seroquel to 150 mg p.o. at bedtime (while continuing 100 mg every morning) and decreased gabapentin to 100 mg p.o. at bedtime which appropriate for her age/ GFR/ polypharmacy She has completed greater than 21 days of DAPT following her cerebellar stroke in late December, stop aspirin and continue Plavix monotherapy, continue statin Note patient had toxic Clozaril level 03/07/25 1605, need to verify if her dosing as decreased enough to reach normal level (outpatient psychiatry at [facility]-->>need to confirm prior to discharge) Reached out to [facility] on 04/06 They are currently working to send over information regarding her appointment on 03/25; put in for information release However, they noted no changes in medications from her most recent appointment Will wait to receive full appointment details, however will plan to maintain current dose of clozapine Note: Patient has been on a reduced dose of clozapine while in the hospital so far (100 mg QAM and 300 mg HS) Restart clozapine 150 mg p.o. QAM, and 350 mg p.o. HS Note: Previous healthcare provider had curbside correspondence with Dr. Sultana, psychiatry, regarding Clozaril level and high yield SEs to look for regarding toxicity which is primarily seizure activity (patient has had no seizure activity). Suggested to redraw Clozaril level, although this will take one week to result and in the interim confirm if Clozaril dosing was decreased and if not consider discontinuation of am dose of Clozaril Please follow-up with Clozaril level after discharge Recheck CPK level in am #Schizoaffective disorder Patient appeared emotionally labile on the morning of 04/06 Unclear if reduction in Seroquel +decreased clozapine dosage in hospital contributory Restart clozapine 150 mg QAM and 350 mg HS Lamotrigine 200 mg BID Maintain reduced dose of Seroquel 100 mg QAM and 150 mg HS because of oversedation #Anemia - 03/08: transferrin 198 + transferrin sat 14, Iron Panel otherwise WNL; B12 + Folate WNL; TSH elevated (noted below); Venofer infusion received 03/08 Continue Ferrous Sulfate 325mg change to q48h #Hypothyroidism TSH 10.023 on 03/08 Levothyroxine 175mcg QAM, recently increased #T2DM - Most recent A1c 6.6% Continue metformin and ordered premeal short acting insulin #Diabetic Neuropathy Continue gabapentin-->reduced to 100 mg HS #Hyperlipidemia Continue rosuvastatin 20 mg HS #GERD Continue PPI [facility]charge Date Admission Date: April 04, 2025 Subjective VSS Mrs. Stoll is in good spirits this morning. She reports she feels "a lot better" than when she originally came into the hospital. She denies feeling dizzy or lightheaded when she stands or ambulates. She does live by herself at [facility], and uses a rollator at baseline, but reports she feels much better on her feet after having medication adjustments. She also reports she has "lots of aides" who come to help with cooking, cleaning, and transportation. Patient reports she had a fall and hit her head on the kitchen table prior to arrival, but has been doing well since this time. She did attend her psychiatry arielle ointment on 03/25, but she is unsure about medication changes. She denies any ringing in her ears, dizziness, lightheadedness, or difficulty walking at this time. She expresses a desire to return home today if possible. Called [facility] on 04/06 requesting release of information regarding appointment on 03/25. They were reportedly no medication adjustments made at this appointment. ROS: Patient denies fever, chills, night sweats, dizziness/lightheadedness with standing, headaches, changes in vision, tinnitus, chest pain, SOB, ARRIETA, abdominal pain, N/V/D, or lower extremity weakness. Review of Systems Review of Systems: See HPI above Physical Exam Physical Exam: General: no acute distress; sitting upright in her chair; non-toxic appearing; cooperative; SpO2 91% on RA HEENT: normocephalic, atraumatic; PERRLA; right eye strabismus; vision and hearing intact Neck: supple; trachea midline Skin: warm, dry without signs of tenting; no cyanosis; no rashes, bruising, lesions, or erythema noted CV: chest wall NTP; RRR; S1/S2 normal; no murmurs/rubs/gallops; pulses intact and symmetric at radial, DP, and PT Lungs: no acute respiratory distress; symmetrical chest wall expansion; clear breath sounds across all lung fang w/o adventitious sounds; no wheezing ABD: Soft, NTP; BS present; no rebound/guarding; no distention MSK: no tics or fasciculations; +1 pedal edema noted in the LEs b/l, nonerythematous Neuro: A&Ox3; normal mood and affect; fluent speech; sensation intact and symmetric in the LEs b/l Results & Data Results & Data Vital Signs (Past 12 Hours) Vital Signs Temp Pulse Pulse Resp BP BP Pulse Ox 04/06/25 11:48 36.9 C 75 73 18 129/83 149/89 H 96 04/06/25 08:00 36.9 C 73 18 129/83 96 O2 Del Method 04/06/25 11:48 04/06/25 08:00 Room Air PG Care Time/CCT Total # of Minutes Spent Total Time Spent with Patient: Total time spent is greater than 50% in coordination of care (as documented) at patient's floor/unit and/or counseling patient: Coding [place] [address] SUB INP/OBS CARE 3/50MIN Patient Type Established History Comprehensive Exam Comprehensive Medical Decision Making High Complexity Diagnoses Fall W19.XXXA Encounter type: initial encounter Diabetic polyneuropathy E11.42 Polypharmacy Z79.899 Ambulatory dysfunction R26.2 Diabetes mellitus type 2, controlled E11.9 Schizoaffective disorder, bipolar type F25.0 Schizoaffective disorder type: bipolar (1) Fall Encounter type: initial encounter Qualified Code(s): W19.XXXA - Unspecified fall, initial encounter (6) Schizoaffective disorder Schizoaffective disorder type: bipolar Qualified Code(s): F25.0 - Schizoaffective disorder, bipolar type
--- NOTE | 2025-04-06 15:12 | Electrocardiogram Report ---
Test Reason : Blood Pressure : */* mmHG Vent. Rate : 85 BPM Atrial Rate : 85 BPM P-R Int : 168 ms QRS Dur : 112 ms QT Int : 412 ms P-R-T Axes : 55 -5 53 degrees QTcB Int : 490 ms Normal sinus rhythm Low voltage QRS Poor R wave progression, consider anterior MD vs. lead placement vs. LVH Nonspecific T wave abnormality Prolonged QT Abnormal ECG When compared with ECG of 06-Mar-2025 15:42, Criteria for Septal infarct are no longer Present Confirmed by Pablo Long ([id number]) on 04/06/2025 3:12:20 PM Referred By: REFERRED SELF Confirmed By: Pablo Long
[2025-04-06 22:32] VITALS: PULSE 75
--- NOTE | 2025-04-07 08:33 | Discharge Summary ---
Discharge Summary Date of Service April 07, 2025 Principal Dx & Hospital Course #1 = Principal Diagnosis (1) Fall: (2) Diabetic polyneuropathy: (3) Polypharmacy: (4) Ambulatory dysfunction: (5) Diabetes mellitus type 2, controlled: (6) Schizoaffective disorder: Plan 64-year-old woman with type II DM, schizoaffective disorder, history of cerebellar stroke 12/2024, chronic vertigo, recurrent falls, who is admitted afte r a fall feeling too unsteady and unsafe to go home. This is very similar to the last 2 recent admissions, most recently she was discharged to [facility]. #Fall, multifactorial gait disorder | chronic vertigo/dizziness | hx cerebellar CVA | polypharmacy Without any acute injuries on assessment She has chronic vertigo and dizziness, was assessed by neurology during last admission, who thought vertigo was vestibular or related to medications and recommended stopping meclizine Per review of neurology note on 03/10, it was thought that Seroquel could be the primary contributor to patient's ambulatory dysfunction PT/OT evaluations appreciated Recommend return home with PT and resume caregiver/aide services upon discharge Multiple medications that could be contributing to vertigo and unsteady gait: Gabapentin, clozapine, lamotrigine, Seroquel Medication changes during this admission: Decreased Seroquel to 150 mg p.o. at bedtime (while continuing 100 mg every morning) and decreased gabapentin to 100 mg p.o. at bedtime which appropriate for her age/ GFR/ polypharmacy She has completed greater than 21 days of DAPT following her cerebellar stroke in late December, stop aspirin and continue Plavix monotherapy, continue statin Note patient had toxic Clozaril level 03/07/25 1605; attempted to verify if her dosing had decreased enough to reach normal level (outpatient psychiatry at [facility]-->> unable to confirm prior to discharge) Called [facility] on 04/06 and submitted release of information form to review appointment on 03/25 Rechecked on 04/07, and no updates on obtaining progress note However, it was noted over the phone that no changes in medications were made during her most recent appointment Note: Patient has been on a reduced dose of clozapine while in the hospital so far (100 mg QAM and 300 mg HS) Resume clozapine 150 mg p.o. QAM, and 350 mg p.o. HS, which was the patient's regimen on most recent discharge on 03/17 Will touch base with case management to schedule follow-up with psychiatry Note: Previous healthcare provider had curbside correspondence with psychiatry, regarding Clozaril level and high yield SEs to look for regarding toxicity which is primarily seizure activity (patient has had no seizure activity). Suggested to redraw Clozaril level, although this will take one week to result and in the interim confirm if Clozaril dosing was decreased and if not consider discontinuation of am dose of Clozaril Please follow-up with Clozaril level after discharge CPK level WNL on the morning of 04/06 #Schizoaffective disorder Patient appeared to exhibit some emotional lability on the morning of 04/06; however, this was much improved on 04/07 Unclear if reduction in Seroquel contributory Continue Clozapine 150 mg QAM and 350 mg HS Continue lamotrigine 200 mg BID Maintain reduced dose of Seroquel 100 mg QAM and 150 mg HS due to oversedation and balance deficits #Anemia - 03/08: transferrin 198 + transferrin sat 14, Iron Panel otherwise WNL; B12 + Folate WNL; TSH elevated (noted below); Venofer infusion received 03/08 Continue Ferrous Sulfate 325mg change to q48h #Hypothyroidism TSH 10.023 on 03/08 Levothyroxine 175mcg QAM, recently increased #T2DM - Most recent A1c 6.6% Continue metformin and ordered premeal short acting insulin #Diabetic Neuropathy Continue gabapentin-->reduced to 100 mg HS #Hyperlipidemia Continue rosuvastatin 20 mg HS #GERD Continue PPI Day of discharge 04/07: VSS Mrs. Stoll is in better spirits this morning today compared to yesterday. She is still feeling quite anxious, but endorses improvement in her ambulatory status after the medication changes. Her only request this morning is to speak with the ophthalmology assistant (Jose Carlos Lares) prior to discharge, as today is the anniversary of her mother's passing, and she missed the [facility] while being in the hospital. She denies any pain at this time. No changes in vision. No tinnitus. While she still endorses intermittent dizziness, she reports it is improved, and she has been ambulating the hallways using her walker without difficulty. She has an upcoming appointment with her eye doctor on April 13, as well as her PCP on April 20. She is eating and drinking well, and reports that she does have caretakers at home on Saturday, Saturday, and Saturday. Overall, when asked if she feels ready to return home today, she responds "heck yeah". ROS: Patient endorses intermittent dizziness (improved from prior), and ambulatory dysfunction (improved from prior) Patient denies fever, chills, night sweats, headache, changes in vision, tinnitus, chest pain, SOB at rest, ARRIETA, abdominal pain, N/V/D, or changes in urinary/bowel habits. Disposition: Continue to stay on [facility] Notes For Next Care Provider Patient hospitalized for fall. Her her Seroquel and gabapentin evening doses were both reduced, and she reported improvement in her ambulatory status. Recommend she follow-up with outpatient psychiatry if the dosage of any additional medications need to be adjusted. Additionally, a clozapine level was drawn while in the hospital, and is still pending at time of discharge. Please follow-up on this clozapine level and adjust the dosage of this medication as needed. Admission HPI Per Admitting Provider Farrah Stoll 64-year-old woman well-known to this hospital with multiple medical problems schizoaffective disorder and frequent falls, who is admitted after a fall. She was in her usual state of health in her apartment when she fell today either going to or coming from the bathroom. She says that she lost her balance and she has chronic vertigo. She fell forward and hit her face on the floor she was unable to get up and was down approximately 5 hours. She has some headache. she has chronic vertigo/dizziness which is unchanged. She bruised her head over her right lateral eyebrow and she bruised her knees. ED evaluation was unremarkable without evidence of an acute infection or any acute significant injuries. She was planned for discharge home but felt unsafe so it is requested that she be admitted. today in the ED her RN went to get her up to the bathroom while sitting on the stretcher she flopped backwards saying that she was dizzy and that she was falling. RNs assisted her and she slid herself off the stretcher and they lowered her to the floor. She immediately got up and walked to the bathroom. When I examined her she initially had no complaints except having bumped her head and having some headache. While examining her neck she began to say "ow, ow, ow" and would not let me move or touch her neck for exam. This seemed to be a behavioral issue because earlier when I arrived in the room she was moving her neck around supplely without any signs of discomfort. CT of her C-spine was negative for fracture and CT of head negative for intracranial hemorrhage Admission Exam Per Admitting Provider Last 24h vitals reviewed GEN: no acute distress, reclining on stretcher HEENT: pupils equal, sclerae anicteric, moist MM. Mild ecchymosis without laceration over right lateral brow. Strabismus right eye. Can't formally assess neck because of behavior described in HPI. Had been moving neck around normally during interview prior to exam. RESP: normal WOB, CTAB CV: reg no mrg ABD: soft/nt/nd +BT : no ramirez SKIN: warm and dry, no generalized rashes EXT: ecchymoses over both patellae worse on right. 1+ ankle and pedal edema NEURO: AOx person, place, and situation. Face symmetric, speech normal, moves 4 ext spontaneously and equally PSYCH: odd affect, some anxiety and some acting out behaviors Discharge Exam General: no acute distress; sitting upright in her chair eating breakfast; non- toxic appearing; cooperative; SpO2 96% on RA HEENT: normocephalic, atraumatic; PERRLA; right eye strabismus; vision and hearing intact Neck: supple; trachea midline Skin: warm, dry without signs of tenting; no cyanosis; no rashes, bruising, lesions, or erythema noted CV: chest wall NTP; RRR; S1/S2 normal; no murmurs/rubs/gallops; pulses intact and symmetric at radial, DP, and PT Lungs: no acute respiratory distress; symmetrical chest wall expansion; clear breath sounds across all lung fang w/o adventitious sounds; no wheezing ABD: Soft, NTP; BS present; no rebound/guarding; no distention MSK: no tics or fasciculations; +1 pedal edema noted in the LEs b/l, nonerythematous Neuro: A&Ox3; normal mood and affect; fluent speech; sensation intact and symmetric in the LEs b/l Gait: Patient demonstrates ability to ambulate with her walker without LOB Discharge Plan Discharge Items Patient Disposition: Home - Self-Care Reason For Visit: AMBULATORY DYSFUNCTION, FALL Discharge Diagnosis: Ambulatory dysfunction, fall Condition on Discharge: Good Activity: Resume your previous activity Bathing: No limitations Non-emergency contact: Primary Care Provider Call non-emergency contact if: you have any medication questions, your symptoms worsen and your pain is not controlled Follow-up/Referrals: Hillary Clarke MD [Primary Care Provider] - 04/13/25 11:15 am (with [facility] [place]) Diet: Carb Consistent or DM2 Addtl Attending Provider Instructions: You were hospitalized at [facility] from 04/03 to 04/07 after sustaining a fall at home. He reported symptoms of vertigo and dizziness similar to your most recent admissions, and reported that you felt unsafe to go home. Over the course your hospital stay, we adjusted 2 of your medications, by decreasing your Seroquel dosing and your gabapentin dosing. You were assessed by our physical and occupational therapy teams, who feel that you are safe to return home at this time. You also expressed improvement in your ambulatory status, and reported that you felt ready to return home on the morning of 04/07. Medications: Your medication list has been reviewed and reconciled upon discharge to ensure accuracy and continuity of care. An updated list of all your medications is included with your hospital discharge paperwork. Please review this list closely, and make note of any changes. Changes to medications on discharge: Quetiapine ("Seroquel") evening dose has been decreased from 300 mg to 150 mg Gabapentin evening dose has been decreased from 300 mg to 100 mg Discontinue aspirin 81 mg daily Please continue to take clozapine 150 mg in the morning, and 350 mg in the evening, which is the dosage that was previously taken prior to hospitalization. A serum clozapine level was drawn during your hospitalization; please plan to follow-up with your psychiatry team at [facility] in [place] if any adjustments in dosage of this medication need to be made. Take your medications as instructed; do not skip a dose of your medicines. Make sure all of your doctors know every medicine you are taking (including [id number] medicines, vitamins, and supplements). Call your primary care provider before taking any new medicines (including over- the-counter medicines, vitamins, and supplements), because some of these may interact with your current medications, or may make your symptoms worse. Tell your primary care provider if you cannot afford your medications. Activity: You can do normal everyday activities as your body allows. Take rest breaks if you feel tired. Do not overexert. Stop activity if you have pain, shortness of breath, or feel dizzy. We have also attached a pamphlet for additional ways to prove your home to prevent falls. Follow-up appointments: Make an appointment with your primary care physician within one week of discharge. A copy of this summary will be sent to them. Every time you see your primary care physician, or any other doctor, bring your medication list, and a list of questions. CONTACT YOUR PRIMARY CARE PROVIDER if you experience any of the following: Shortness of breath or difficulty breathing Fevers or chills Feeling tired with normal activity or experiencing dizziness or fainting Difficulty following your treatment plan, or difficulty taking medications CALL 911 OR GO TO THE EMERGENCY DEPARTMENT if you experience any of the following: Severe abdominal pain or nausea/vomiting Severe chest pain, or chest pain that radiates (moves) to your jaw or arm Sudden, severe shortness of breath or difficulty breathing Thank you for allowing us to participate in your care. Please reach out with any questions or concerns. Sincerely, The Hospital medicine team at [facility] Pending Studies at Discharge: Yes Studies:: Clozapine level Stand-Alone Forms: My [facility] Medications and DC Order Prescriptions: New quetiapine 25 mg Tablet 150 mg PO HS 30 Days Qty: 180 0RF Rx Instructions: Take 150 mg at bedtime clozapine 100 mg Tablet 300 mg PO HS 30 Days Qty: 90 0RF clozapine 100 mg Tablet 100 mg PO QAM 30 Days Qty: 30 0RF clopidogrel 75 mg Tablet 75 mg PO QAM Qty: 30 0RF quetiapine 100 mg Tablet 100 mg PO QAM Qty: 30 0RF Rx Instructions: Take 100 mg in the morning gabapentin 100 mg Capsule 100 mg PO HS Qty: 30 0RF Rx Instructions: Take 1 capsule at nighttime lamotrigine 100 mg Tablet 200 mg PO BID 30 Days Qty: 120 0RF Rx Instructions: Take 2 tablets (200mg) twice daily clozapine 50 mg tablet 50 mg PO Q12H Qty: 30 0RF Continued cholecalciferol (vitamin D3) 25 mcg (1,000 unit) tablet 25 mcg PO BID 90 Days Qty: 180 3RF (DME) blood-glucose meter [OneTouch Ultra2 Meter] Misc See Rx Instructions .Route Qty: 1 0RF Rx Instructions: As directed (DME) OneTouch Ultra Test Strip See Rx Instructions .Route Qty: 100 3RF Rx Instructions: check bsg once daily (DME) lancets [OneTouch UltraSoft 2 Lancet] 30 gauge misc See Rx Instructions .Route Qty: 100 3RF Rx Instructions: check once daily acetaminophen 325 mg tablet 650 mg PO Q8 MDD 3000mg PRN (Reason: pain) Qty: 240 5RF folic acid 1 mg tablet 1 mg PO QAM Qty: 30 6RF cyanocobalamin (vitamin B-12) 500 mcg tablet 500 mcg PO QAM Qty: 30 6RF omeprazole 20 mg capsule,delayed release(DR/EC) 40 mg PO QAM 30 Days Qty: 60 2RF metformin 500 mg tablet extended release 24 hr 1,000 mg PO QAM Qty: 120 2RF rosuvastatin 20 mg tablet 20 mg PO HS Qty: 90 2RF (DME) Blood Pressure Cuff Misc See Rx Instructions .Route Qty: 1 0RF Rx Instructions: As directed (DME) lancets [OneTouch Delica Plus Lancet] 33 gauge misc See Rx Instructions .Route Qty: 100 0RF Rx Instructions: As directed (DME) Bedside Commode Misc See Rx Instructions .Route Qty: 1 0RF Rx Instructions: As directed (DME) Hospital Bed Homecare Misc See Rx Instructions .Route Qty: 1 0RF Rx Instructions: As directed ferrous sulfate [Iron (ferrous sulfate)] 325 mg (65 mg iron) tablet 325 mg PO QAM levothyroxine [Synthroid] 175 mcg tablet 175 mcg PO DAILY Qty: 30 0RF Discontinued aspirin [Enteric Coated Aspirin] 81 mg tablet,delayed release (DR/EC) 81 mg PO QAM Qty: 90 3RF gabapentin [Neurontin] 300 mg capsule 300 mg PO HS Qty: 30 0RF Discharge Orders: Discharge Order (Routine); Ordered 04/07/25 Ordered By: Jermaine Monaco/Other Patient Handouts: Preventing Falls in the Home Admission Data Admit Date/Time: 04/04/25 14:58 Attending Provider: David Rojas Admit Provider: Deborah Altamirano Primary Care Provider: Hillary Clarke Other Providers: Deborah Altamirano; [facility] Other Interventions: Discharge Summary Assessment (RN) Last Done: 04/06/25 11:48 Hospital Stay Data Consultations 04/03/25 17:42 ED Decision to Admit Stat Diagnostic Imagining Performed 04/03/25 12:15 CT cervical spine wo con Stat CT head/brain wo con Stat Pending Results Patient Have Any Pending Studies at Discharge: Yes Discharge Instructions Given to Patient (Per Discharging Provider) You were hospitalized at [facility] from 04/03 to 04/07 after sustaining a fall at home. He reported symptoms of vertigo and dizziness similar to your most recent admissions, and reported that you felt unsafe to go home. Over the course your hospital stay, we adjusted 2 of your medications, by decreasing your Seroquel dosing and your gabapentin dosing. You were assessed by our physical and occupational therapy teams, who feel that you are safe to return home at this time. You also expressed improvement in your ambulatory status, and reported that you felt ready to return home on the morning of 04/07. Medications: Your medication list has been reviewed and reconciled upon discharge to ensure accuracy and continuity of care. An updated list of all your medications is included with your hospital discharge paperwork. Please review this list closely, and make note of any changes. Changes to medications on discharge: Quetiapine ("Seroquel") evening dose has been decreased from 300 mg to 150 mg Gabapentin evening dose has been decreased from 300 mg to 100 mg Discontinue aspirin 81 mg daily Please continue to take clozapine 150 mg in the morning, and 350 mg in the evening, which is the dosage that was previously taken prior to hospitalization. A serum clozapine level was drawn during your hospitalization; please plan to follow-up with your psychiatry team at [facility] in [place] if any adjustments in dosage of this medication need to be made. Take your medications as instructed; do not skip a dose of your medicines. Make sure all of your doctors know every medicine you are taking (including bxzu-[id number]-fiyushg medicines, vitamins, and supplements). Call your primary care provider before taking any new medicines (including over- the-counter medicines, vitamins, and supplements), because some of these may interact with your current medications, or may make your symptoms worse. Tell your primary care provider if you cannot afford your medications. Activity: You can do normal everyday activities as your body allows. Take rest breaks if you feel tired. Do not overexert. Stop activity if you have pain, shortness of breath, or feel dizzy. We have also attached a pamphlet for additional ways to prove your home to prevent falls. Follow-up appointments: Make an appointment with your primary care physician within one week of discharge. A copy of this summary will be sent to them. Every time you see your primary care physician, or any other doctor, bring your medication list, and a list of questions. CONTACT YOUR PRIMARY CARE PROVIDER if you experience any of the following: Shortness of breath or difficulty breathing Fevers or chills Feeling tired with normal activity or experiencing dizziness or fainting Difficulty following your treatment plan, or difficulty taking medications CALL 911 OR GO TO THE EMERGENCY DEPARTMENT if you experience any of the following: Severe abdominal pain or nausea/vomiting Severe chest pain, or chest pain that radiates (moves) to your jaw or arm Sudden, severe shortness of breath or difficulty breathing Thank you for allowing us to participate in your care. Please reach out with any questions or concerns. Sincerely, The Hospital medicine team at [facility] Total Time Total Time Spent Total Time Spent (In Minutes): 40 Coding [place] [address] INP/OBS DISCH >30 MIN Patient Type Established History Comprehensive Exam Comprehensive Medical Decision Making High Complexity Diagnoses Fall W19.XXXA Encounter type: initial encounter Diabetic polyneuropathy E11.42 Polypharmacy Z79.899 Ambulatory dysfunction R26.2 Diabetes mellitus type 2, controlled E11.9 Schizoaffective disorder, bipolar type F25.0 Schizoaffective disorder type: bipolar
--- NOTE | 2025-04-07 15:03 | Psychiatric Consultation ---
Date of Consultation April 07, 2025 Impression / Recommendations Impression Diagnostically consistent with schizoaffective disorder with increased depression, anxiety and emotional and behavioral dysregulation in the setting of increased distress from the anniversary of her mother's and psychiatric medication changes over recent months due to increased clozapine level and dizziness with falls. Plan for inpatient psychiatric hospitalization pending negative COVID test and i nsurance authorization. Overall, I spent a total of 60 minutes with this case including review of chart records, review of labwork, review of EKG QTc, direct evaluation of the patient at bedside, counseling the patient, discussion of the patient with the hospitalist provider, discussion with the psychiatric liason during clinical rounds and documentation in the electronic health record. (1) Schizoaffective disorder: Schizoaffective disorder type: bipolar Qualified Code(s): F25.0 - Schizoaffective disorder, bipolar type (2) Complicated bereavement: (3) Anxiety: (4) Polypharmacy: (5) Diabetic polyneuropathy: (6) Fall: Encounter type: initial encounter Qualified Code(s): W19.XXXA - Unspecified fall, initial encounter (7) History of cerebellar stroke: (8) Diabetes mellitus type 2, controlled: Plan -Plan for 201 admission to [facility] pending negative COVID -Will need MNPR due to walker Psych History Identifying Data Farrah Stoll is a 62 yo woman with history of schizoaffective disorder admitted medically for dizziness and falls. Psychiatry consulted for discharge difficulty and increased emotional lability. Chief Complaint "I can't deal with all of this". History of Present Illness Farrah was admitted for dizziness and fall at home. Her medications were adjusted, including dose reduction of Seroquel and she reported improvement of dizziness and feeling better. However, yesterday at time of discharge she became verbally escalated and behaviorally dysregulated and reportedly threatened to throw herself onto the floor. Again today she refused discharge. Exploring this with her she states ongoing anxiety and grief from the anniversary of her mother's . She is not afraid of falling but rather feels anxious and she isn't sure why. She is interested in inpatient psychiatric hospitalization to help with her nervousness and mood lability. She feels the groups will be helpful and we can ensure her psychiatric medication adjustments will be tolerated. Unclear if some of her concerns about returning home could be due to paranoia. Allergies Allergy/AdvReac Type Severity Reaction Status Date / Time lithium Allergy Unknown Unknown Verified 03/29/25 10:44 escitalopram AdvReac Severe Manic Verified 03/29/25 10:44 haloperidol AdvReac Intermediate dystonia Verified 03/29/25 10:44 Penicillins AdvReac Intermediate Gastrointestinal Verified 03/29/25 10:44 Upset valproic acid AdvReac Intermediate Leg Verified 03/29/25 10:44 Swelling Home Medications Medication Instructions Recorded Confirmed Type cholecalciferol (vitamin D3) 25 25 mcg PO BID 90 days #180 tabs 02/07/24 04/03/25 Rx mcg (1,000 unit) tablet blood-glucose meter (OneTouch #1 ea 03/27/24 03/29/25 Rx Ultra2 Meter) blood sugar diagnostic (OneTouch #100 ea 03/29/24 03/29/25 Rx Ultra Test strips) lancets 30 gauge (OneTouch #100 ea 04/14/24 03/29/25 Rx UltraSoft 2 Lancet) lancets 33 gauge (OneTouch Delica #100 ea 10/13/24 03/29/25 Rx Plus Lancet) miscellaneous medical supply #1 ea 10/13/24 03/29/25 Rx (Blood Pressure Cuff) acetaminophen 325 mg tablet 650 mg (2 x 325 mg) PO Q8 PRN pain 12/18/24 04/03/25 Rx #240 tabs cyanocobalamin (vitamin B-12) 500 500 mcg PO QAM #30 tabs 12/23/24 04/03/25 Rx mcg tablet folic acid 1 mg tablet 1 mg PO QAM #30 tabs 12/23/24 04/03/25 Rx metformin 500 mg tablet,extended 1,000 mg (2 x 500 mg) PO QAM #120 12/29/24 04/03/25 Rx release 24 hr tabs omeprazole 20 mg capsule,delayed 40 mg (2 x 20 mg) PO QAM 30 days 12/29/24 04/03/25 Rx release #60 caps Bedside Commode #1 ea 01/12/25 03/29/25 Rx Hospital Bed Homecare #1 ea 01/12/25 03/29/25 Rx ferrous sulfate 325 mg (65 mg 325 mg PO QAM 02/27/25 04/03/25 History iron) tablet (Iron (ferrous sulfate)) levothyroxine 175 mcg tablet 175 mcg PO DAILY #30 tabs 03/10/25 04/03/25 Rx (Synthroid) rosuvastatin 20 mg tablet 20 mg PO HS #90 tabs 03/11/25 04/03/25 Rx clopidogrel 75 mg tablet 75 mg PO QAM #30 tabs 04/06/25 Rx clozapine 100 mg tablet 100 mg PO QAM 30 days #30 tabs 04/06/25 Rx clozapine 100 mg tablet 300 mg (3 x 100 mg) PO HS 30 days 04/06/25 Rx #90 tabs clozapine 50 mg tablet 50 mg PO Q12H #30 tabs 04/06/25 Rx gabapentin 100 mg capsule 100 mg PO HS #30 caps 04/06/25 Rx lamotrigine 100 mg tablet 200 mg (2 x 100 mg) PO BID 30 days 04/06/25 Rx #120 tabs quetiapine 100 mg tablet 100 mg PO QAM #30 tabs 04/06/25 Rx quetiapine 25 mg tablet 150 mg (6 x 25 mg) PO HS 30 days 04/06/25 Rx #180 tabs Patient History Medical History Constipation AMS (altered mental status) Calf swelling Schizoaffective disorder Multiple pulmonary nodules pt unsure Helioensky Hypothyroidism HTN (hypertension) Hyperlipidemia Drug-induced parkinsonism pt unsure - sometimes has tremors Dizziness Type 2 diabetes mellitus Cataract Bilateral Anemia Pneumonia Currently on 3x antibiotics for 10 days - Thee - pt denies symptoms "was just found on CT scan" Anxiety Poor historian Hx of diverticulitis of colon History of colon polyps Brain TIA unsure "2019 maybe, not sure" Depression Frequent falls most recent 01/09/24 [facility] Chronic back pain GERD (gastroesophageal reflux disease) Asthma inhaler prn Surgical History History of removal of cyst benign cyst removed right breast History of colonoscopy History of tooth extraction all teeth removed History of tonsillectomy and adenoidectomy Family History Grandmother (Paternal) Diabetes Grandmother (Maternal) Diabetes Mother Anemia Bipolar disorder Cardiomyopathy Coronary heart disease Father Diabetes FH: kidney cancer Other No family history of adverse response to anesthesia Parkinson disease Parkinsonian syndrome Social History Smoking Status: Never smoker Second Hand Exposure: No; Do You Dip or Chew Tobacco: No; Hx Alcohol Use: No Hx Substance Use: No Preferred Language: Ecuadorean Communication Ability: Effective Visual Impairment: No Limitations Hearing Ability: Normal Window Tinter Required: No Beliefs That Will Affect Care: Jewish marital status: Single Current Living Situation: Alone Current Living Situation Comment: lives alone on seventh floor apartment Feels Safe at Home: Yes Gender Identity: Female Assistive Devices: Bedside Commode and Walker Physical Exam Vital Signs (Past 24 Hours): Last Vital Signs Temp 36.6 C 04/07/25 07:42 Pulse 75 04/07/25 07:42 Resp 18 04/07/25 07:42 BP 125/78 04/07/25 07:42 Pulse Ox 96 04/07/25 07:42 O2 Del Method Room Air 04/07/25 07:42 Results & Data (PSY) Medications Administered Acetaminophen (Acetaminophen 325 Mg Tab) 650 mg PO Q4H PRN PRN Reason: pain/fever Stop: 05/03/25 19:34 Last Admin: 04/07/25 05:54 Dose: 650 mg Documented By: Admin: 04/06/25 23:20 Dose: 650 mg Documented By: Admin: 04/06/25 09:01 Dose: 650 mg Documented By: cdc Admin: 04/05/25 20:31 Dose: 650 mg Documented By: Admin: 04/05/25 13:28 Dose: 650 mg Documented By: Admin: 04/05/25 06:01 Dose: 650 mg Documented By: Admin: 04/04/25 21:18 Dose: 650 mg Documented By: f Admin: 04/04/25 17:31 Dose: 650 mg Documented By: Admin: 04/04/25 13:31 Dose: 650 mg Documented By: Admin: 04/03/25 21:03 Dose: 650 mg Documented By: abf Clopidogrel Bisulfate (Clopidogrel Bisulfate 75 Mg Tab) 75 mg PO QAM [facility] Stop: 05/04/25 08:59 Last Admin: 04/07/25 08:56 Dose: 75 mg Documented By: Admin: 04/06/25 09:04 Dose: 75 mg Documented By: ame Admin: 04/05/25 09:35 Dose: 75 mg Documented By: Admin: 04/04/25 12:14 Dose: 75 mg Documented By: CHEYANNE Clozapine (Clozapine 100 Mg Tab) 100 mg PO QAM [facility]; Protocol Stop: 05/04/25 08:59 Last Admin: 04/07/25 09:01 Dose: 100 mg Documented By: Admin: 04/05/25 09:35 Dose: 100 mg Documented By: Admin: 04/04/25 12:08 Dose: Not Given Documented By: CHEYANNE Clozapine (Clozapine 100 Mg Tab) 300 mg PO HS [facility]; Protocol Stop: 05/03/25 20:59 Last Admin: 04/06/25 20:05 Dose: 300 mg Documented By: Admin: 04/05/25 20:32 Dose: 300 mg Documented By: Admin: 04/04/25 21:04 Dose: 300 mg Documented By: cruzito Admin: 04/03/25 21:07 Dose: 300 mg Documented By: cruzito Clozapine (Clozapine 25 Mg Tab) 50 mg PO BID [facility]; Protocol Stop: 05/06/25 20:59 Last Admin: 04/07/25 08:56 Dose: 50 mg Documented By: Admin: 04/06/25 20:04 Dose: 50 mg Documented By: CASTILLO Enoxaparin Sodium (Enoxaparin Inj 40 Mg/0.4 Ml Syr) 40 mg SQ Q24H [facility] Stop: 05/04/25 20:59 Last Admin: 04/06/25 20:05 Dose: 40 mg Documented By: Admin: 04/05/25 20:32 Dose: 40 mg Documented By: Admin: 04/04/25 21:07 Dose: 40 mg Documented By: cruzito Folic Acid (Folic Acid 1 Mg Tab) [facility] [place]: 05/04/25 08:59 Last Admin: 04/07/25 08:56 Dose: 1 mg Documented By: Admin: 04/06/25 09:03 Dose: 1 mg Documented By: ame Admin: 04/05/25 09:35 Dose: 1 mg Documented By: Admin: 04/04/25 12:15 Dose: 1 mg Documented By: CHEYANNE Gabapentin (Gabapentin 100 Mg Cap) 100 mg PO HS [facility] Stop: 05/04/25 20:59 Last Admin: 04/06/25 20:04 Dose: 100 mg Documented By: Admin: 04/05/25 20:33 Dose: 100 mg Documented By: Admin: 04/04/25 21:04 Dose: 100 mg Documented By: cruzito Insulin Aspart (Insulin Aspart Per Unit Charge) 0 units SC ACHS [facility] Stop: 05/03/25 20:59 Last Admin: 04/07/25 12:26 Dose: 3 units Documented By: LORY Co-signed By: LENNY Admin: 04/07/25 09:01 Dose: 3 units Documented By: LORY Co-signed By: SOCRATES Admin: 04/06/25 20:20 Dose: Not Given Documented By: HFW Co-signed By: JULIO Admin: 04/06/25 17:53 Dose: Not Given Documented By: cdc Admin: 04/06/25 12:55 Dose: 8 units Documented By: cdc Co-signed By: CB Admin: 04/06/25 09:01 Dose: Not Given Documented By: cdc Admin: 04/05/25 20:14 Dose: Not Given Documented By: HFW Co-signed By: DARLEEN Admin: 04/05/25 17:03 Dose: Not Given Documented By: Admin: 04/05/25 12:58 Dose: 5 units Documented By: NMH Co-signed By: asg Admin: 04/05/25 09:24 Dose: Not Given Documented By: Admin: 04/04/25 21:26 Dose: Not Given Documented By: cruzito Co-signed By: LENNY Admin: 04/04/25 17:28 Dose: 5 units Documented By: CHEYANNE Co-signed By: KRYSTAL Admin: 04/04/25 12:19 Dose: 3 units Documented By: CHEYANNE Co-signed By: SOCRATES Admin: 04/04/25 08:51 Dose: Not Given Documented By: Admin: 04/03/25 22:06 Dose: Not Given Documented By: cruzito Co-signed By: LENNY Lamotrigine (Lamotrigine 100 Mg Tab) 200 mg PO BID [facility]; Protocol Stop: 05/03/25 20:59 Last Admin: 04/07/25 08:56 Dose: 200 mg Documented By: Admin: 04/06/25 20:04 Dose: 200 mg Documented By: Admin: 04/06/25 09:04 Dose: 200 mg Documented By: cdc Admin: 04/05/25 20:33 Dose: 200 mg Documented By: Admin: 04/05/25 09:35 Dose: 200 mg Documented By: Admin: 04/04/25 21:06 Dose: 200 mg Documented By: cruzito Admin: 04/04/25 12:14 Dose: 200 mg Documented By: Admin: 04/03/25 21:06 Dose: 200 mg Documented By: cruzito Levothyroxine Sodium (Levothyroxine Sodium 175 Mcg Tablet) 175 mcg PO DAILYBB [facility] Stop: 05/04/25 06:29 Last Admin: 04/07/25 05:52 Dose: 175 mcg Documented By: Admin: 04/06/25 05:49 Dose: 175 mcg Documented By: Admin: 04/05/25 05:41 Dose: 175 mcg Documented By: Admin: 04/04/25 06:06 Dose: 175 mcg Documented By: cruzito Magnesium Hydroxide (Magnesium Hydroxide Susp 30 Ml Udc) 30 ml PO Q6H PRN PRN Reason: Constipation Stop: 05/03/25 19:34 Last Admin: 04/05/25 13:28 Dose: 30 ml Documented By: [facility] Melatonin (Melatonin 3 Mg Tab) 3 mg PO HS PRN PRN Reason: Insomnia Stop: 05/03/25 19:34 Last Admin: 04/06/25 20:04 Dose: 3 mg Documented By: Admin: 04/05/25 20:31 Dose: 3 mg Documented By: CASTILLO Metformin HCl (Metformin Hcl Er 500 Mg Tabcr) 1,000 mg PO QAM [facility] Stop: 05/04/25 08:59 Last Admin: 04/07/25 08:56 Dose: 1,000 mg Documented By: Admin: 04/06/25 09:03 Dose: 1,000 mg Documented By: cdc Admin: 04/05/25 09:36 Dose: 1,000 mg Documented By: [facility] Admin: 04/04/25 12:15 Dose: 1,000 mg Documented By: CHEYANNE Nystatin (Nystatin Powder 15gm Btl) 1 appln EXT BID [facility] Stop: 05/03/25 20:59 Last Admin: 04/07/25 08:56 Dose: 1 appln Documented By: Admin: 04/06/25 20:05 Dose: 1 appln Documented By: HFAutumn Admin: 04/06/25 09:04 Dose: 1 appln Documented By: cdc Admin: 04/05/25 20:33 Dose: 1 appln Documented By: HFAutumn Admin: 04/05/25 09:36 Dose: 1 appln Documented By: [facility] Admin: 04/04/25 21:06 Dose: 1 appln Documented By: cruzito Admin: 04/04/25 12:15 Dose: 1 appln Documented By: Admin: 04/03/25 21:09 Dose: 1 appln Documented By: cruzito Pantoprazole Sodium (Pantoprazole 40 Mg Tab) [facility] [place]: 05/04/25 08:59 Last Admin: 04/07/25 08:56 Dose: 40 mg Documented By: Admin: 04/06/25 09:04 Dose: 40 mg Documented By: [facility] Admin: 04/05/25 09:36 Dose: 40 mg Documented By: [facility] Admin: 04/04/25 12:14 Dose: 40 mg Documented By: CHEYANNE Quetiapine Fumarate (Quetiapine Fumarate 100 Mg Tablet) [facility] [place]: 05/04/25 08:59 Last Admin: 04/07/25 08:56 Dose: 100 mg Documented By: Admin: 04/06/25 09:03 Dose: 100 mg Documented By: [facility] Admin: 04/05/25 09:36 Dose: 100 mg Documented By: [facility] Admin: 04/04/25 12:08 Dose: Not Given Documented By: CHEYANNE Quetiapine Fumarate (Quetiapine Fumarate 25 Mg Tablet) 150 mg PO [facility] Stop: 05/04/25 20:59 Last Admin: 04/06/25 20:04 Dose: 150 mg Documented By: Admin: 04/05/25 20:32 Dose: 150 mg Documented By: Autumn Admin: 04/04/25 21:04 Dose: 150 mg Documented By: cruzito Coding Level of Care Code 30180 IN/OBS CONSULT LVL 4,60M Diagnoses Schizoaffective disorder, bipolar type F25.0 Schizoaffective disorder type: bipolar Complicated bereavement F43.81 Anxiety F41.9 Polypharmacy Z79.899 Diabetic polyneuropathy E11.42 Fall W19.XXXA Encounter type: initial encounter History of cerebellar stroke Z86.73 Diabetes mellitus type 2, controlled E11.9
--- NOTE | 2025-04-07 15:10 | Communication Note ---
Despite being medically stable for discharge, and expressing a desire to return home this morning, Mrs. Stoll again refuses transport at time of discharge. 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 At time of discharge, patient appears emotionally upset/anxious. She says things, such as she will "[facility]ose manuel the hospital" if she is forced to leave, she feels unsafe to be at home, and threatening to fall on the floor discharge. Patient endorses significant anxiety at this time. When asked if patient has any thoughts of self-harm, thoughts of harming others, or suicidal ideations, patient denies any such thoughts. Reached out to psychiatry for formal evaluation; appreciate their assistance in this matter. At this time, I do feel that decreasing patient's Seroquel dosing may be contributing to emotional lability, conflicting narratives, and incoherent thought processes. Resubmitted DUC to [facility]. Patient seen by [facility] liaison and psychiatrist at bedside, and is amenable to voluntarily checking into inpatient psych. Per psychiatry, she has been inpatient on their unit before in 2022. COVID test ordered, pending. Date of Service: April 07, 2025
[2025-04-07 16:06] VITALS: BP 115/76; RESP 20; TEMP 97.3; O2SAT 97
== END 2025-04-07 18:01 | disposition home or self-care (01) | DRG 74 ==
LOC: SUATTDRO → 3N 11:21 → ED 11:21 → 3N 19:04 → SUATTDRO 04-04 14:58